=== PATIENT | female | born 1970 | race Caucasian/White ===

== ENCOUNTER 2023-04-29 06:06 | Day surgery (SDC) | payer OTHER, SELFPAY ==
[2023-04-29] VITALS (13 sets, daily range): BP systolic 134–162; BP diastolic 70–100; PULSE 69–80; RESP 16–24; TEMP 36.3–36.6; O2SAT 93–98; BMI 33.0
[2023-04-29 06:32] LABS: Basophils Absolute Auto 0.1 10^3/uL (0.0-0.1); Basophils Percent Auto 0.9 % (0.2-2.0); Eosinophils Absolute Auto 0.3 10^3/uL (0.0-0.7); Eosinophils Percent Auto 3.5 % (0.9-7.0); Hematocrit 39.5 % (36.0-48.0); Hemoglobin 13.3 g/dL (12.0-16.0); Immature Granulocytes Abs Auto 0.03 10^3/uL (0.00-0.03); Immature Granulocytes Pct Auto 0.4 % (0.0-0.5); Lymphocytes Absolute Auto 2.6 10^3/uL (1.2-3.8); Lymphocytes Percent Auto 32.3 % (20.5-60.0); Mean Corpuscular HGB Conc 33.7 g/dL (29.9-35.2); Mean Corpuscular Hemoglobin 30.3 pg (26.7-34.0); Mean Platelet Volume 8.8 fL (9.5-13.5); Monocytes Absolute Auto 0.6 10^3/uL (0.3-0.8); Monocytes Percent Auto 7.8 % (1.7-12.0); Neutrophils Absolute Auto 4.5 10^3/uL (1.4-6.5); Neutrophils Percent Auto 55.1 % (43.0-75.0); Nucleated Red Blood Cells 0; Platelet Count 346 10^3/uL (150-450); Red Blood Count 4.39 10^6/uL (4.20-5.40); Red Cell Distribution Width 13.2 % (11.0-15.0); White Blood Count 8.1 10^3/uL (4.0-11.0)
[2023-04-29] MEDS: LACTATED RINGER'S SOLUTION 1,000 ML 50 ML IV (07:20)
[2023-04-29] MEDS: CLINDAMYCIN PHOSPHATE/D5W 900 MG/50 ML PIGGYBACK 50 MG IV (07:48)
--- NOTE | 2023-04-29 08:04 | ED.LOWEXI1 ---
HPI - Extremity Injury (Lower) Related Data Home Medications Medication Instructions Recorded Confirmed aripiprazole 5 mg tablet (Abilify) 5 mg PO QDAY 04/28/23 04/28/23 aspirin 81 mg chewable tablet 81 mg PO QDAY 04/28/23 04/28/23 gabapentin 300 mg capsule 300 mg PO QDAY 04/28/23 04/28/23 hydrochlorothiazide 12.5 mg tablet 12.5 mg PO QDAY 04/28/23 04/28/23 lisinopril 10 mg tablet 10 mg PO QDAY 04/28/23 04/28/23 rosuvastatin 20 mg tablet (Crestor) 20 mg PO QDAY 04/28/23 04/28/23 venlafaxine 150 mg 150 mg PO QPM 04/28/23 04/28/23 capsule,extended release 24 hr (Effexor XR) Allergies Allergy/AdvReac Type Severity Reaction Status Date / Time acetaminophen [From Percocet] Allergy Mild Nausea Verified 04/28/23 15:21 amoxicillin Allergy Mild Rash Verified 04/28/23 15:20 oxycodone [From Percocet] Allergy Mild Nausea Verified 04/28/23 15:21 [facility] Medical History (Updated 04/28/23 @ 15:47 by Radha Cherry, KIM) Surgical History (Updated 04/28/23 @ 15:46 by Radha Cherry, RN) Family History (Updated 04/28/23 @ 15:17 by Radha Cherry, RN) Father Coronary artery disease Hypertension Prostate cancer Mother Coronary artery disease Hypertension Family history of stroke Social History (Updated 04/28/23 @ 15:51 by Radha Cherry, RN) Within the past year, how often did you have a drink containing alcohol: 2-4 times a month Within the past year, how often did you have six or more drinks on one occasion: never Smoking status: Never smoker Non-prescribed substance use: denies use Previous occupational history: [employer] Highest level of school completed/degree received: high school graduate Exam Constitutional: Vital Signs, click to edit/add: Vital Signs - 24 hr 04/29/23 06:45 Temperature 97.3 F L Pulse Rate 79 Respiratory Rate 18 Blood Pressure [Le ft Arm] 155/98 H Pulse Oximetry 96 Oxygen Delivery Me thod Room Air Course Vital Signs Vital signs: Vital Signs Temperature 97.3 F L 04/29/23 06:45 Pulse Rate 79 04/29/23 06:45 Respiratory Rate 18 04/29/23 06:45 Blood Pressure 155/98 H 04/29/23 06:45 Pulse Oximetry 96 04/29/23 06:45 Oxygen Delivery Method Room Air 04/29/23 06:45 Temperature 97.3 F L 04/29/23 06:45 Pulse Rate 79 04/29/23 06:45 Respiratory Rate 18 04/29/23 06:45 Blood Pressure 155/98 H 04/29/23 06:45 Pulse Oximetry 96 04/29/23 06:45 Oxygen Delivery Method Room Air 04/29/23 06:45 MDM - Extremity Injury (Lower) Lab Data Labs: Lab Results 04/29/23 Range/Units 06:17 WBC 8.1 (4.0-11.0) 10^3/uL RBC 4.39 (4.20-5.40) 10^6/uL Hgb 13.3 (12.0-16.0) g/dL Hct 39.5 (36.0-48.0) % MCV 90.0 (81.0-99.0) fL MCH 30.3 (26.7-34.0) pg MCHC 33.7 (29.9-35.2) g/dL RDW 13.2 (11.0-15.0) % Plt Count 346 (150-450) 10^3/uL MPV 8.8 L (9.5-13.5) fL Neut % (Auto) 55.1 (43.0-75.0) % Lymph % (Auto) 32.3 (20.5-60.0) % [place] % (Auto) 7.8 (1.7-12.0) % Eos % (Auto) 3.5 (0.9-7.0) % Baso % (Auto) 0.9 (0.2-2.0) % Neut # (Auto) 4.5 (1.4-6.5) 10^3/uL Lymph # (Auto) 2.6 (1.2-3.8) 10^3/uL [place] # (Auto) 0.6 (0.3-0.8) 10^3/uL Eos # (Auto) 0.3 (0.0-0.7) 10^3/uL Baso # (Auto) 0.1 (0.0-0.1) 10^3/uL Nucleated RBCs 0 Discharge Plan Discharge Disposition: Home, Self-Care Condition: Good Discharge Medications: No Action aripiprazole [Abilify] 5 mg tablet 5 mg PO QDAY aspirin 81 mg tablet,chewable 81 mg PO QDAY rosuvastatin [Crestor] 20 mg tablet 20 mg PO QDAY venlafaxine [Effexor XR] 150 mg capsule,extended release 24hr 150 mg PO QPM gabapentin 300 mg capsule 300 mg PO QDAY lisinopril 10 mg tablet 10 mg PO QDAY hydrochlorothiazide 12.5 mg tablet 12.5 mg PO QDAY Referrals: JULIO C JARRETT [Primary Care Provider] -
--- NOTE | 2023-04-29 08:20 | PC.NURSE ---
PATIENT PLACED ON RIGHT SIDE, OXYGEN APPLIED PER PROTOCOL, PRESSURE MONITOR APPLIED PROCEDURE PERFORMED. PATIENT TOLERATED BLOCK WELL
--- NOTE | 2023-04-29 09:01 | P.ORON_ITS ---
jhlkhj Brief Operative Note Date of procedure: 04/29/23 Pre-op diagnosis: rupture of left Achilles tendon status post primary repair on 12/17/22 Post-op diagnosis: same Procedure: Left secondary/revision Achilles tendon repair with flexor hallucis longus tendon transfer and application of short leg splint Procedure in detail: Patient was identified in the preoperative holding area and correct side and site were marked. I reviewed the consent with the patient as well as risks and benefits of the procedure. I reviewed postsurgical course and answered all questions. Preoperative antibiotics were started and the patient was brought to the operating theater and was intubated. Thigh tourniquet was applied. He was then flipped onto the operative table in a well-padded prone position. The operative extremity was prepped and draped in usual sterile fashion. Formal timeout was performed. The rupture site was identified and a lazy S incision was placed over the Achilles tendon extending from 4 cm proximal to the rupture site and to the Achilles insertion. Sharp and blunt dissection was performed and the peritenon was identified and meticulously reflected for later repair. a large bulbous area of the Achilles tendon in the non-insertional area was identified. The tendon was incised and further inspected. All nonviable tendon was excised which included much of the insertion and non-insertional areas of the Achilles tendon. Due to the amount of Achilles tendon excised decision was made to augment the repair with a FHL tendon transfer. The deep crural fascia was incised and all bleeders were coagulated. The FHL muscle belly was identified and was tracked distally identifying the associated tendon. The ankle and hallux were plantarflexed in tension was placed on the FHL tendon which was then cut as distal as possible. Then a whipstitch was used along the FHL tendon which was then sized. A guidepin was then placed into the calcaneus from superior to inferior with a slight anterior and a stab incision was placed on the plantar heel allowing the guidepin passed through the plantar skin. Then a cannulated drill was used over this guidepin accordingly. The sutures from the whipstitch on the FHL tendon were then passed through an eyelet in the guidepin which was then removed through the plantar skin allowing the passage of the sutures. The ankle was plantar flexed fifteen degrees and the tendon passed through the drill hole in the superior aspect of the calcaneus. Then a 6 mm tenodesis screw was used to hold the tendon in place. The sutures exiting the plantar skin were then cut and the surgical site was irrigated copiously. Utilizing suture tape a Krak?w stitch was performed on the proximal Achilles tendon. Then two stab incisions were placed on the medial and lateral insertion sites. Blunt dissection down to bone was performed. Two drill holes for suture anchors were placed in each of the stab incisions. The suture tape was then passed with a Abbey clamp into each of the stab incisions. Then my microbiology lab assistant held the foot in fifteen degrees of plantar flexion as well as held tension on the lateral suture tape while I placed the medial suture tape through a 3.3 mm anchor. According to the horse trader's standard directions that anchor was placed into the drill hole holding tension appropriately. Then in a similar fashion another anchor was placed through the lateral stab incision. It was noted on the table that there was good apposition between the ruptured sites. Good fixation was obtained with testing plantarflexion/dorsiflexion of the ankle. Surgical site was irrigated with saline and peritenon repaired. T ourniquet was then dropped and the incision was closed in layers while the stab incisions were closed in one layer with nonabsorbable suture. A dry sterile dressing was applied. Multiple layers of cast padding were then applied to ensure all bony prominences were well-padded. A plaster posterior splint was then applied which was held in place by Isai wraps. Capillary refill time to all digits was evaluated and had appropriate response. Postoperative plan: Discharge home under family's care Post op instructions provided verbally and written prescription(s) were placed in chart NWB operative foot/ankle x3 wks Follow-up in 1 week Implants: Medline 6mm tenodesis and 3.3 mm knotless anchors (x2) Anesthesia: regional (& general) Surgeon: Deng Remy Senior It Business Analyst: David Barnett Estimated blood loss (mL): 10 Tourniquet time (min): 47 Pathology: other (Achilles tendon) Condition: stable Disposition: PACU General Podiatry History of Present Illness patient is a 53-year-old female who sustained a work-related injury involving a laceration and associated rupture of the Achilles tendon which required surgical repair (DOS: 12/17/22). Her postoperative course was complicated by a fall which resulted in pain, palpable dell in the Achilles tendon and plantarflexory weakness. an MRI was obtained in January which revealed a rupture of the repaired Achilles tendon. She initially was treated nonoperatively with immobilization and a cam boot with wedges as well as physical therapy. Unfortunately her strength did not improve and we discussed the potential risks and benefits of surgical revision. Particularly she is at risk for wound healing problems, infection, and permanent weakness. other potential complications include bleeding, numbness/tingling, gait dysfunction, blood clot and need for additional surgery. Patient wished to proceed with surgical revision. Current symptoms: Reports swelling, Reports pain with movement, Reports painful wearing shoes and Reports pain walking barefoot Last treatment for complaint: unsuccessful in relief Aggravating factors: Reports walking
--- NOTE | 2023-04-29 09:04 | XR_ITS ---
The [address] [address] Patient Name: LUIS FIGUEROA MRN: [id number] date: 1970 Sex: F Assigned Patient Location: [facility] Current Patient Location: Accession/Order Number: [id number] Exam Date: 04/29/2023 09:55 Report Date: 04/29/2023 10:38 At the request of: IVANIA MUNOZ Procedure: XR ankle LT min 3V EXAM: XR ankle LT min 3V HISTORY: Left achilles repair COMPARISON: MRI from 02/15/2023, radiographs from 12/09/2022 FINDINGS: 3 views of the left ankle. There are changes from interval Achilles tendon repair, with expected soft tissue fluid and gas projecting over Kager's fat pad. Further soft tissue evaluation is limited by the overlying casting material. The joint spaces of the ankle and hindfoot are well-maintained. Achilles and plantar fascial enthesopathy is noted. IMPRESSION: Expected postoperative changes status post Achilles tendon repair. Electronically authenticated by: AVELINA MARTINEZ Date: 04/29/2023 10:38
[2023-04-29] MEDS: HYDROMORPHONE HCL 1 MG/ML CARTRIDGE (10:00)
[2023-04-29] MEDS: HYDROMORPHONE HCL 0.5 MG/0.5 ML SYRINGE (10:10)
[2023-04-29] MEDS: HYDROCODONE/ACETAMINOPHEN 5-325 MG TABLET 1 TAB PO (11:24)
[2023-04-29 14:52] LABS: Glucometer 128 mg/dL (74-106)
== END 2023-04-29 11:35 | disposition home or self-care (01) ==
PROVIDERS: PCP Internal Medicine; Visit Provider Podiatrist Foot & Ankle Surgery
PROC: (CPT 27654; principal; 2023-04-29 07:30)
DX: S86.012A Strain of left Achilles tendon, initial encounter (principal); I10 Essential (primary) hypertension; Z79.82 Long term (current) use of aspirin; Z86.16 Personal history of COVID-19; E78.00 Pure hypercholesterolemia, unspecified; K21.9 Gastro-esophageal reflux disease without esophagitis; Z98.51 Tubal ligation status; Z86.73 Personal history of transient ischemic attack (TIA), and cerebral infarction without residual deficits
CPT/HCPCS: 27654; 27691; 36415; 64445; 73610; 76942; 82948; 85025; 88304; C1713; J1170; J2704

== ENCOUNTER 2023-07-21 10:09 | Outpatient (OUT) | payer OTHER, SELFPAY ==
--- NOTE | 2023-07-21 | XR_ITS ---
The [place] [id number] Patient Name: LUIS FIGUEROA MRN: [id number] date: 1970 Sex: F Assigned Patient Location: [facility] Current Patient Location: [facility] Accession/Order Number: [id number] Exam Date: 07/21/2023 09:29 Report Date: 07/21/2023 09:53 At the request of: ДМИТРИЙ RÍOS Procedure: XR ankle LT min 3V XR ankle LT min 3V, 07/21/2023 9:29 AM EDT, OH001 INDICATION: LEFT ANKLE PAIN COMPARISON: 04/29/2023 TECHNIQUE: AP, lateral and oblique views of the ankle are submitted. FINDINGS: The bones appear well mineralized. No acute fracture or subluxation is identified. The joint spaces are maintained. No destructive osseous process is identified. There is marked dorsal soft tissue swelling. XR/XR ankle LT min 3V IMPRESSION: Marked dorsal soft tissue swelling. No acute osseous injury with intact ankle mortise. Electronically authenticated by: GENARO MONTOYA Date: 07/21/2023 09:53
== END 2023-07-21 10:10 | disposition home or self-care (01) ==
LOC: RAD 10:10
PROVIDERS: PCP Internal Medicine; Visit Provider Podiatrist Foot & Ankle Surgery
DX: S86.012D Strain of left Achilles tendon, subsequent encounter (principal)
CPT/HCPCS: 73610

== ENCOUNTER 2023-07-21 11:20 | Inpatient (IN) | payer OTHER, SELFPAY ==
[2023-07-21 11:24] VITALS: BP 104/82; PULSE 90; RESP 16; TEMP 37.5; O2SAT 97; BMI 32.4
[2023-07-21 11:45] VITALS: BP 150/86; PULSE 88; RESP 16; TEMP 37.2; O2SAT 95; BMI 32.6
--- NOTE | 2023-07-21 12:12 | ED_ITS ---
HPI - Extremity Problem General Chief complaint: Extremity Problem, Nontraumatic Stated complaint: LOWER EXTREMITY PAIN LEFT FOOT Time Seen by Provider: 07/21/23 11:34 Source: patient Mode of arrival: Wheelchair Limitations: no limitations History of Present Illness HPI Narrative: Patient presents to emergency department complaining of left lower leg abscess. Patient had Achilles tendon repair by Dr. Remy In November. Patient followed up with Dr. Remy today because since Wednesday she's had increased pain, swelling, and edema to the area. He is found to have an abscess and he sent her here for admission. Patient was a history of hypertension. She denies any fever. She denies any paresthesias, weakness. Currently on any antibiotics.She does not have any other complaints Related Data Home Medications Medication Instructions Recorded Confirmed aripiprazole 5 mg tablet (Abilify) 10 mg PO QDAY 04/28/23 07/21/23 aspirin 81 mg chewable tablet 81 mg PO QDAY 04/28/23 07/21/23 gabapentin 300 mg capsule 300 mg PO QDAY PRN pain 04/28/23 07/21/23 hydrochlorothiazide 12.5 mg tablet 12.5 mg PO QDAY 04/28/23 07/21/23 lisinopril 10 mg tablet 10 mg PO QDAY 04/28/23 07/21/23 venlafaxine 150 mg 150 mg PO QPM 04/28/23 07/21/23 capsule,extended release 24 hr (Effexor XR) pravastatin 40 mg tablet 40 mg PO DAILY 07/21/23 07/21/23 Allergies Allergy/AdvReac Type Severity Reaction Status Date / Time amoxicillin Allergy Mild Rash Verified 04/28/23 15:20 Review of Systems ROS Status of ROS 10 or more systems reviewed and unremarkable except as noted in history and below [facility] Medical History (Updated 07/21/23 @ 13:40 by Khushboo Celis MD) Surgical History (Updated 04/28/23 @ 15:46 by Radha Cherry RN) Family History (Updated 04/28/23 @ 15:17 by Radha Cherry, KIM) Father Coronary artery disease Hypertension Prostate cancer Mother Coronary artery disease Hypertension Family history of stroke Social History (Updated 04/28/23 @ 15:51 by Radha Cherry, RN) Within the past year, how often did you have a drink containing alcohol: 2-4 times a month Within the past year, how often did you have six or more drinks on one occasion: never Smoking status: Never smoker Non-prescribed substance use: denies use Previous occupational history: [employer] Highest level of school completed/degree received: high school graduate Exam Narrative Exam Narrative: Nurses notes and vital signs reviewed and patient is not hypoxic. General: Nontoxic, Well-appearing and in no apparent distress. Skin: Warm, dry, no pallor noted. No Rash Head: Normocephalic, atraumatic. Neck: Supple, non-tender. Eye: Pupils are equal, round and EOMI. No scleral icterus. Ears, Nose, Mouth, and Throat: TM clear, no posterior oropharynx erythema or nasal mucosal hypertrophy, uvula is mid-line Oral mucosa is moist Cardiovascular: Regular Rate and Rhythm without murmur, gallop or rub. Respiratory: No accessory muscle use or respiratory distress. Lungs are clear to auscultation, no wheezing, rales or rhonchi Chest Wall: no tenderness Back: No midline thoracic or lumbar vertebral tenderness. No CVA tenderness Musculoskeletal: Left posterior lower leg with a palm-sized area of erythema, induration, and warmth. There is no dehiscensce. DP +2, to be +2, capillary refill is brisk. Motion limited by pain. no calf or popliteal tenderness, no lower extremity edema/swelling GI: Abdomen is soft, non-distended. Normal bowel sounds. No masses appreciated. No tenderness to palpation. No rebound, guarding, or rigidity noted. Neurological: A&O x4. No cranial nerve dysfunction observed. No truncal ataxia. Moves all extremities. Sensation intact. Psychiatric: Cooperative and interactive. Normal mood and affect. Constitutional Vital Signs, click to edit/add: Last Vital Signs Temp 99.5 F 07/21/23 11:24 Pulse 90 07/21/23 11:24 Resp 16 07/21/23 11:24 BP 104/82 07/21/23 11:24 Pulse Ox 97 07/21/23 11:24 O2 Del Method Room Air 07/21/23 11:24 Course Vital Signs Vital signs: Vital Signs Temperature 99.5 F 07/21/23 11:24 Pulse Rate 90 07/21/23 11:24 Respiratory Rate 16 07/21/23 11:24 Blood Pressure 104/82 07/21/23 11:24 Pulse Oximetry 97 07/21/23 11:24 Oxygen Delivery Method Room Air 07/21/23 11:24 Temperature 99.5 F 07/21/23 11:24 Pulse Rate 90 07/21/23 11:24 Respiratory Rate 16 07/21/23 11:24 Blood Pressure 104/82 07/21/23 11:24 Pulse Oximetry 97 07/21/23 11:24 Oxygen Delivery Method Room Air 07/21/23 11:24 MDM - Extremity (Nontraumatic) MDM Narrative Medical decision making narrative: Patient had IV established, she was pancultured and started on vancomycin. She was given IV fluids. All results were discussed with Dr. Gan for admission. Dr. Gan advised he has already discussed the patient with Dr. Remy.. Lab Data Labs: Lab Results 07/21/23 Range/Units 11:00 WBC 10.7 (4.0-11.0) 10^3/uL RBC 4.35 (4.20-5.40) 10^6/uL Hgb 12.9 (12.0-16.0) g/dL Hct 39.1 (36.0-48.0) % MCV 89.9 (81.0-99.0) fL MCH 29.7 (26.7-34.0) pg MCHC 33.0 (29.9-35.2) g/dL RDW 13.1 (11.0-15.0) % Plt Count 432 (150-450) 10^3/uL MPV 9.3 L (9.5-13.5) fL Neut % (Auto) 78.3 H (43.0-75.0) % Lymph % (Auto) 17.2 L (20.5-60.0) % [place] % (Auto) 3.2 (1.7-12.0) % Eos % (Auto) 0.3 L (0.9-7.0) % Baso % (Auto) 0.6 (0.2-2.0) % Neut # (Auto) 8.4 H (1.4-6.5) 10^3/uL Lymph # (Auto) 1.8 (1.2-3.8) 10^3/uL [place] # (Auto) 0.3 (0.3-0.8) 10^3/uL Eos # (Auto) 0.0 (0.0-0.7) 10^3/uL Baso # (Auto) 0.1 (0.0-0.1) 10^3/uL Abs Immat Gran (auto) 0.04 H (0.00-0.03) 10^3/uL Imm/Tot Granulo (auto) 0.4 (0.0-0.5) % ESR 110 H (<=30) mm/hr Sodium 135 L (136-145) mmol/L Potassium 3.1 L (3.5-5.1) mmol/L Chloride 97 L (98-107) mmol/L Carbon Dioxide 26.2 (21.0-32.0) mmol/L Anion Gap 14.9 BUN 8.0 (7.0-18.0) mg/dL Creatinine 1.01 (0.55-1.02) mg/dL Est GFR ( Amer) >60 (>=60) Est GFR (Non-Af Amer) 57 L (>=60) BUN/Creatinine Ratio 7.9 Glucose 152 H (74-106) mg/dL Lactate 3.0 H* (0.4-2.0) mmol/L Calcium 9.4 (8.5-10.1) mg/dL Total Bilirubin 0.6 (0.2-1.0) mg/dL AST 17 (15-37) U/L ALT 26 (14-59) U/L Alkaline Phosphatase 85 (46-116) U/L C-Reactive Protein 8.9 H (<=1.0) mg/dL Total Protein 8.3 H (6.4-8.2) g/dL Albumin 3.9 (3.4-5.0) g/dL Globulin 4.4 g/dL Albumin/Globulin Ratio 0.9 Discharge Plan Discharge Chief Complaint: Extremity Problem, Nontraumatic Clinical Impression: Abscess of left lower leg, Sepsis Patient Disposition: Admitted As Inpatient Time of Disposition Decision: 13:39 Condition: Good
[2023-07-21] MEDS: 0.9 % SODIUM CHLORIDE 1,000 ML 999 ML IV (12:19)
[2023-07-21] MEDS: VANCOMYCIN HCL 1,500 MG in 0.9 % SODIUM CHLORIDE 500 ML 250 MG IV (12:34)
[2023-07-21 12:36] LABS: Basophils Absolute Auto 0.1 10^3/uL (0.0-0.1); Basophils Percent Auto 0.6 % (0.2-2.0); Eosinophils Percent Auto 0.3 % (0.9-7.0); Hematocrit 39.1 % (36.0-48.0); Hemoglobin 12.9 g/dL (12.0-16.0); Immature Granulocytes Abs Auto 0.04 10^3/uL (0.00-0.03); Immature Granulocytes Pct Auto 0.4 % (0.0-0.5); Lymphocytes Absolute Auto 1.8 10^3/uL (1.2-3.8); Lymphocytes Percent Auto 17.2 % (20.5-60.0); Mean Corpuscular Hemoglobin 29.7 pg (26.7-34.0); Mean Corpuscular Volume 89.9 fL (81.0-99.0); Mean Platelet Volume 9.3 fL (9.5-13.5); Monocytes Absolute Auto 0.3 10^3/uL (0.3-0.8); Monocytes Percent Auto 3.2 % (1.7-12.0); Neutrophils Absolute Auto 8.4 10^3/uL (1.4-6.5); Neutrophils Percent Auto 78.3 % (43.0-75.0); Platelet Count 432 10^3/uL (150-450); Red Blood Count 4.35 10^6/uL (4.20-5.40); Red Cell Distribution Width 13.1 % (11.0-15.0); White Blood Count 10.7 10^3/uL (4.0-11.0)
[2023-07-21 12:41] LABS: Erythrocyte Sedimentation Rate 110 mm/hr (<=30)
[2023-07-21 12:59] LABS: Alanine Aminotransferase 26 U/L (14-59); Albumin Globulin Ratio 0.9; Albumin Level 3.9 g/dL (3.4-5.0); Alkaline Phosphatase 85 U/L (46-116); Anion Gap 14.9; Aspartate Amino Transferase 17 U/L (15-37); BUN Creatinine Ratio 7.9; Bilirubin Total 0.6 mg/dL (0.2-1.0); C Reactive Protein 8.9 mg/dL (<=1.0); Calcium 9.4 mg/dL (8.5-10.1); Carbon Dioxide 26.2 mmol/L (21.0-32.0); Chloride 97 mmol/L (98-107); Estimated GFR (African America >60 (>=60); Estimated GFR (Non-African Ame 57 (>=60); Globulin 4.4 g/dL; Glucose 152 mg/dL (74-106); Potassium 3.1 mmol/L (3.5-5.1); Sodium 135 mmol/L (136-145); Total Protein 8.3 g/dL (6.4-8.2)
[2023-07-21 14:00] VITALS: BP 150/86; PULSE 88; RESP 18; TEMP 37.2; O2SAT 95
[2023-07-21 14:10] VITALS: BP 116/84; PULSE 87; RESP 16; TEMP 37.5; O2SAT 98
[2023-07-21 14:31] LABS: Lactate/Lactic Acid 1.3 mmol/L (0.4-2.0)
[2023-07-21] MEDS: LACTATED RINGER'S SOLUTION 1,000 ML 100 ML IV (16:46)
[2023-07-21] MEDS: ASPIRIN 81 MG TAB.CHEW PO (16:47)
[2023-07-21] MEDS: PIPERACILLIN SODIUM/TAZOBACTAM 3.375 GM in 0.9 % SODIUM CHLORIDE 50 ML IV (18:34)
[2023-07-21 21:03] VITALS: BP 119/86; PULSE 87; RESP 18; TEMP 36.6; O2SAT 96
[2023-07-21] MEDS: ATORVASTATIN CALCIUM 10 MG TABLET PO (21:13)
[2023-07-21] MEDS: VENLAFAXINE HCL ER 150 MG CAPSULE PO (21:15)
[2023-07-21] MEDS: VANCOMYCIN HCL 1,000 MG in 0.9 % SODIUM CHLORIDE 250 ML 250 MG IV (22:03)
[2023-07-21] MEDS: FAMOTIDINE 20 MG TABLET PO (22:03)
[2023-07-22] VITALS (18 sets, daily range): BP systolic 100–138; BP diastolic 64–94; PULSE 66–99; RESP 7–22; TEMP 36.5–37; O2SAT 84–96
[2023-07-22] MEDS: PIPERACILLIN SODIUM/TAZOBACTAM 3.375 GM in 0.9 % SODIUM CHLORIDE 50 ML IV ×3 (02:02→17:51)
[2023-07-22] MEDS: LACTATED RINGER'S SOLUTION 1,000 ML 100 ML IV ×3 (03:25→19:59)
[2023-07-22 05:13] LABS: Basophils Absolute Auto 0.1 10^3/uL (0.0-0.1); Basophils Percent Auto 0.7 % (0.2-2.0); Eosinophils Absolute Auto 0.1 10^3/uL (0.0-0.7); Eosinophils Percent Auto 1.6 % (0.9-7.0); Hematocrit 32.7 % (36.0-48.0); Hemoglobin 10.8 g/dL (12.0-16.0); Immature Granulocytes Abs Auto 0.03 10^3/uL (0.00-0.03); Immature Granulocytes Pct Auto 0.3 % (0.0-0.5); Lymphocytes Absolute Auto 1.7 10^3/uL (1.2-3.8); Mean Corpuscular Hemoglobin 29.8 pg (26.7-34.0); Mean Corpuscular Volume 90.1 fL (81.0-99.0); Mean Platelet Volume 8.8 fL (9.5-13.5); Monocytes Absolute Auto 0.5 10^3/uL (0.3-0.8); Monocytes Percent Auto 6.1 % (1.7-12.0); Neutrophils Absolute Auto 6.1 10^3/uL (1.4-6.5); Neutrophils Percent Auto 71.3 % (43.0-75.0); Platelet Count 332 10^3/uL (150-450); Red Blood Count 3.63 10^6/uL (4.20-5.40); Red Cell Distribution Width 12.9 % (11.0-15.0); White Blood Count 8.6 10^3/uL (4.0-11.0)
[2023-07-22 05:26] LABS: BUN Creatinine Ratio 7.3; Calcium 8.6 mg/dL (8.5-10.1); Carbon Dioxide 27.2 mmol/L (21.0-32.0); Chloride 102 mmol/L (98-107); Estimated GFR (African America >60 (>=60); Estimated GFR (Non-African Ame >60 (>=60); Glucose 102 mg/dL (74-106); Potassium 3.2 mmol/L (3.5-5.1); Sodium 137 mmol/L (136-145)
[2023-07-22] MEDS: LOSARTAN POTASSIUM 25 MG TABLET PO (09:33)
--- NOTE | 2023-07-22 09:39 | CM.NOTE ---
Rounds made with Dr. Gan, OR scheduled for 12:10 I&D. Possible discharge after OR.
--- NOTE | 2023-07-22 09:40 | PM.HP ---
H&P: HPI History of Present Illness Chief complaint: Left achilles abscess Narrative: 53 y/o female sent from podiatry office with left achilles tendon abscess. Patient had achilles tendon repair in November 2022 then again on April 29. Seemed to be healing well then developed pain and swelling few days ago. Noticed severe swelling in back of ankle and skin red and warm to touch. Afebrile and no nausea or emesis. Seen by podiatry and sent to ER for admission. WBC normal and low grade temp 99.5. CRP elevated. Admitted for treatment. Started vancomycin and zosyn. Podiatry consulted and plan on taking for I&D later this am. Feels well this am. Denies pain and reports started to drain overnight. Review of Systems ROS Constitutional Denies: fever, chills or fatigue Respiratory Denies: shortness of breath, cough or wheezing Gastrointestinal Denies: abdominal pain, nausea, vomiting or diarrhea Genitourinary Denies: painful urination Integumentary/Breast Reports: redness PFSH PFSH Medical History (Updated 07/21/23 @ 13:40 by Khushboo Celis MD) Surgical History (Updated 04/28/23 @ 15:46 by Radha Cherry RN) Family History (Updated 07/21/23 @ 14:26 by Jaqeulin Ortiz) Father Coronary artery disease Hypertension Prostate cancer Family history of cancer Mother Coronary artery disease Hypertension Family history of stroke Social History (Updated 07/21/23 @ 14:28 by Jaquelin Ortiz) Within the past year, how often did you have a drink containing alcohol: 2-4 times a month Within the past year, how many standard drinks containing alcohol did you have on a typical day: 1 or 2 Within the past year, how often did you have six or more drinks on one occasion: never Total score: 0 Score interpretation: A score less than 3 is consistent with normal alcohol consumption. Smoking status: Never smoker Non-prescribed substance use: denies use Previous occupational history: [employer] Highest level of school completed/degree received: high school graduate Are you now , , , , never or living with a partner: In a typical week, how many times do you talk on the telephone with family, friends, or neighbors: 3 or more times per week How often do you get together with friends or relatives: twice per week How often do you attend tenriism or zoroastrianism services: never Do you belong to any clubs or organizations such as tenriism groups unions, fraternal or athletic groups, or school groups: no Total score: 1 Score interpretation: A score of less than or equal to 1 indicates the most socially isolated. Little interest or pleasure in doing things: not at all Feeling down, depressed, or hopeless: not at all Feel stressed/tense/nervous/anxious/difficulty sleeping: not at all Meds Home Medications and Allergies Home Medications Medication Instructions Recorded Confirmed Type aspirin 81 mg chewable tablet 81 mg PO QDAY 04/28/23 07/21/23 History venlafaxine 150 mg 150 mg PO QPM 04/28/23 07/21/23 History capsule,extended release 24 hr (Effexor XR) aripiprazole 10 mg tablet (Abilify) 10 mg PO DAILY 07/21/23 07/21/23 History hydrochlorothiazide 25 mg tablet 25 mg PO DAILY 07/21/23 07/21/23 History losartan 25 mg tablet 25 mg PO DAILY 07/21/23 07/21/23 History pravastatin 40 mg tablet 40 mg PO DAILY 07/21/23 07/21/23 History Allergies Allergy/AdvReac Type Severity Reaction Status Date / Time amoxicillin Allergy Mild Rash Verified 04/28/23 15:20 Exam Constitutional Vital Signs, click to edit/add: Last Vital Signs Temp 98.0 F 07/22/23 05:28 Pulse 82 07/22/23 05:28 Resp 16 07/22/23 05:28 BP 110/66 07/22/23 05:28 Pulse Ox 96 07/22/23 05:28 O2 Del Method Room Air 07/22/23 05:28 Documenting provider has reviewed patient's vital signs: yes Common normals: no apparent distress, oriented x3 and alert HENMT Common normals: normocephalic Eye Common normals: PERRL and EOMs intact bilaterally Respiratory Common normals: normal respiratory effort and clear to auscultation bilaterally Cardio Common normals: regular rate, regular rhythm, no gallops, no murmurs and no rub GI Common normals: Normal to inspection, nondistended, normoactive bowel sounds present and non-tender Extremity Common normals: no pedal edema Left lower extremity: lower leg (Mild swelling and erythema over achilles tendon) Results Labs Labs: Short CBC 07/21/23 07/22/23 Range/Units 11:00 04:35 WBC 10.7 8.6 (4.0-11.0) 10^3/uL Hgb 12.9 10.8 L (12.0-16.0) g/dL Hct 39.1 32.7 L (36.0-48.0) % Plt Count 432 332 (150-450) 10^3/uL BMP 07/21/23 07/22/23 11:00 04:35 Sodium 135 L 137 Potassium 3.1 L 3.2 L Chloride 97 L 102 Carbon Dioxide 26.2 27.2 BUN 8.0 6.0 L Creatinine 1.01 0.82 Glucose 152 H 102 Calcium 9.4 8.6 Liver Function 07/21/23 Range/Units 11:00 Total Bilirubin 0.6 (0.2-1.0) mg/dL AST 17 (15-37) U/L ALT 26 (14-59) U/L Alkaline Phosphatase 85 (46-116) U/L Albumin 3.9 (3.4-5.0) g/dL Assessment and Plan Assessment and Plan (1) Abscess of left lower leg: (2) Hypertension: (3) Depression: Plan Admitted with abscess and podiatry consulted for I&D. Continue antibiotics and await cultures. The patient is not septic. Resumed home medication. Start PT. Further plan and disposition per podiatry after surgery.
--- NOTE | 2023-07-22 12:54 | PM.ORONB ---
Brief Operative Note Date of procedure: 07/22/23 Pre-op diagnosis: left open Achilles tendon rupture with laceration, abscess/cellulitis Post-op diagnosis: same as pre-op Procedure: PROCEDURES PERFORMED: left incision and drainage of deep abscess of Achilles tendon sheath, Achilles tendon debridement with tenolysis, application of wound VAC and short leg splint INTRAOPERATIVE FINDINGS: Preoperative wound measurements 0.4 x 0.5 cm. PROCEDURE IN DETAIL: Patient was identified in pre op and consent was reviewed. Correct side and site were identified and marked. Pre-op antibiotics were started. Patient was brought to OR suite and place on table in a supine position. General anesthesia was administered. Tourniquet applied. Operative extremity was prepped and draped in usual sterile fashion. Formal time-out was performed and the foot/ankle were elevated for several minutes and the tourniquet was inflated. Utilizing a scalpel, the wound over the Achilles tendon was excised then extended proximally and distally allowing exposure of the entire Achilles tendon. There was cherelle pus noted on the proximal half of the Achilles tendon superficial to the peritenon. Soft tissue swabs were taken of the pus. After the pus was evacuated nonviable tissue was excised with rongeurs and a scalpel. anchors from the prior Achilles tendon repair were found while debridement was being performed. Additionally nonabsorbable suture was identified and was also removed. there also was a dell in the mid substance of the Achilles tendon consistent with rerupture. The tendon was aggressively debrided. Blunt dissection with a hemostat was performed to ensure no additional purulence or necrotic tissue was present. After full excision the surgical site was irrigated with 3 L of copious sterile saline. Gloves were changed and all dirty instruments were passed off the sterile field. after irrigation the tourniquet was deflated noting a prompt hyperemic response. Inspection was performed to ensure all remaining tissue perfused normally. A clean specimen was obtained from the Achilles tendon and was sent to microbiology for culture. Hemostasis was controlled with pressure an elevation. Adaptic was then placed over the Achilles tendon and wound bed followed by black foam. Tegaderm drape was used to obtain a seal for a wound VAC. A hole was cut into the drape and a track pad was placed accordingly. The wound VAC was placed at 125mmHg continuous and adequate suction was obtained. A bulky dry sterile dressing consisting of 4 x 4 gauze, ABDs, and Kerlix were applied. Multiple layers of cast padding were then applied to ensure all bony prominences were well-padded. A plaster posterior splint was then applied which was held in place by Isai wraps. Capillary refill time to all digits was evaluated and had appropriate response. Patient tolerated the procedure and anesthesia well transferred to the recovery room with vital signs stable and brisk capillary refill to the toes. POSTOPERATIVE PLAN: Transfer to med/surg under hospitalist's care NWB operative foot/ankle Ice and elevation continue broad-spectrum antibiotics and follow cultures. Consults: physical therapy & social work manager plan is for patient to remain in the hospital over the weekend and for repeat I and D and hopeful closure on Wednesday Will follow Implants: none Anesthesia: General-ET Surgeon: Deng Remy Community Development Manager: Luca Poole Estimated blood loss (mL): 25 Pathology: other (soft tissue) Condition: stable Disposition: PACU Preoperative Details Reason for procedure: patient is a 53-year-old female who suffered an open Achilles tendon rupture which required surgical intervention secondary to an injury sustained at work. Her postoperative recovery has been complicated by inability to regain strength on plantarflexion, surgical dehiscence. Patient presented to my office yesterday with redness, swelling and drainage coming from the incision dehiscence over the area of the original laceration. I recommended admission and she was sent to the emergency department and ultimately admitted under the hospitalist's care. She had no leukocytosis however ESR was 110 on admission. She was started on vancomycin & zosyn. She presents to the operating room today for I and D and she was educated all potential risks and benefits.
[2023-07-22] MEDS: HYDROMORPHONE HCL 0.5 MG/0.5 ML SYRINGE IV (15:25)
--- NOTE | 2023-07-22 15:31 | PC.NURSE ---
pain meds given at this time
[2023-07-22] MEDS: VENLAFAXINE HCL ER 150 MG CAPSULE PO (19:46)
[2023-07-22] MEDS: ATORVASTATIN CALCIUM 10 MG TABLET PO (19:46)
[2023-07-23] MEDS: PIPERACILLIN SODIUM/TAZOBACTAM 3.375 GM in 0.9 % SODIUM CHLORIDE 50 ML IV ×3 (01:28→17:58)
[2023-07-23 04:44] LABS: Basophils Absolute Auto 0.1 10^3/uL (0.0-0.1); Basophils Percent Auto 0.8 % (0.2-2.0); Eosinophils Absolute Auto 0.4 10^3/uL (0.0-0.7); Eosinophils Percent Auto 6.1 % (0.9-7.0); Hematocrit 32.3 % (36.0-48.0); Hemoglobin 10.4 g/dL (12.0-16.0); Immature Granulocytes Abs Auto 0.02 10^3/uL (0.00-0.03); Immature Granulocytes Pct Auto 0.3 % (0.0-0.5); Lymphocytes Absolute Auto 1.8 10^3/uL (1.2-3.8); Lymphocytes Percent Auto 27.6 % (20.5-60.0); Mean Corpuscular HGB Conc 32.2 g/dL (29.9-35.2); Mean Corpuscular Volume 93.1 fL (81.0-99.0); Mean Platelet Volume 8.8 fL (9.5-13.5); Monocytes Absolute Auto 0.4 10^3/uL (0.3-0.8); Monocytes Percent Auto 6.6 % (1.7-12.0); Neutrophils Absolute Auto 3.8 10^3/uL (1.4-6.5); Neutrophils Percent Auto 58.6 % (43.0-75.0); Platelet Count 300 10^3/uL (150-450); Red Blood Count 3.47 10^6/uL (4.20-5.40); Red Cell Distribution Width 13.1 % (11.0-15.0); White Blood Count 6.6 10^3/uL (4.0-11.0)
[2023-07-23 04:56] LABS: Anion Gap 12.1; BUN Creatinine Ratio 6.3; Calcium 8.7 mg/dL (8.5-10.1); Carbon Dioxide 29.3 mmol/L (21.0-32.0); Chloride 105 mmol/L (98-107); Estimated GFR (African America >60 (>=60); Estimated GFR (Non-African Ame >60 (>=60); Glucose 114 mg/dL (74-106); Potassium 3.4 mmol/L (3.5-5.1); Sodium 143 mmol/L (136-145)
[2023-07-23 05:11] VITALS: BP 111/70; PULSE 68; RESP 20; TEMP 36.6; O2SAT 91
[2023-07-23] MEDS: LACTATED RINGER'S SOLUTION 1,000 ML 100 ML IV ×2 (06:55→17:58)
[2023-07-23] MEDS: ARIPIPRAZOLE 5 MG TABLET 10 MG PO (08:24)
[2023-07-23] MEDS: HYDROCHLOROTHIAZIDE 25 MG TABLET PO (08:25)
[2023-07-23] MEDS: LOSARTAN POTASSIUM 25 MG TABLET PO (08:25)
--- NOTE | 2023-07-23 09:22 | SWNOTE1 ---
SW notified by case management that pt has a hospital wound vac on, SW to speak with pt and check podiatry documentation. Pt is supposed to go to surgery for another I&D Wednesday , 07/26/23. SW to follow.
--- NOTE | 2023-07-23 10:00 | CM.NOTE ---
Rounds made with Dr. Gan, no discharge today. SW and Case Management will follow for any discharge needs.
--- NOTE | 2023-07-23 10:07 | PM.PN ---
Progress Note: Subjective Subjective Interval history: Patient stable this am. Taken to OR for I&D and podiatry found abscess more involved then initially thought. Found achilles tendon rupture and abscess involving tendon. Wound vac applied and cultures obtained. Plan repeat wash out 07/26 with possible closure. Pain tolerable with medication. Afebrile. Normal appetite. No emesis or diarrhea. No chest pain or SOB. Exam Constitutional Vital Signs, click to edit/add: Last Vital Signs Temp 97.9 F 07/23/23 05:11 Pulse 68 07/23/23 05:11 Resp 20 07/23/23 05:11 BP 111/70 07/23/23 05:11 Pulse Ox 91 L 07/23/23 05:11 O2 Del Method Room Air 07/23/23 05:11 Documenting provider has reviewed patient's vital signs: yes Common normals: no apparent distress, oriented x3 and alert HENMT Common normals: normocephalic Eye Common normals: PERRL and EOMs intact bilaterally Respiratory Common normals: normal respiratory effort and clear to auscultation bilaterally Cardio Common normals: regular rate, regular rhythm, no gallops, no murmurs and no rub GI Common normals: Normal to inspection, nondistended, normoactive bowel sounds present and non-tender Extremity Common normals: no pedal edema Progress Note: Objective Labs Labs: Short CBC 07/23/23 Range/Units 04:12 WBC 6.6 (4.0-11.0) 10^3/uL Hgb 10.4 L (12.0-16.0) g/dL Hct 32.3 L (36.0-48.0) % Plt Count 300 (150-450) 10^3/uL BMP 07/23/23 04:12 Sodium 143 Potassium 3.4 L Chloride 105 Carbon Dioxide 29.3 BUN 5.0 L Creatinine 0.79 Glucose 114 H Calcium 8.7 Progress Note: A&P Assessment and Plan (1) Abscess of left lower leg: (2) Rupture of left Achilles tendon: (3) Hypertension: (4) Depression: Plan Doing well after surgery and plan per podiatry. Continue vanc and zosyn while awaiting cultures. Plan repeat surgery 07/26. Continue home medication. BP stable. Monitor labs.
--- NOTE | 2023-07-23 11:57 | SWNOTE1 ---
SW met with pt to discuss dc needs. Pt lives at home with
--- NOTE | 2023-07-23 11:58 | SWNOTE1 ---
continued note: Live at home with family. Pt lives in a 1 story home, just a few steps to get in. Pt does have a knee scooter at home. She is aware she is going back to OR Wednesday, she stated she will get wound vac off then. Pt does not have any concerns about discharge. SW to follow as needed.
[2023-07-23 12:11] VITALS: BMI 32.6
--- NOTE | 2023-07-23 12:17 | DIETREC ---
Nutrition Recommendations: 1. Add Prostat 30 mL starting with once daily. May increase to BID if patient accepts supplement. Reviewed with
[2023-07-23] MEDS: SIMETHICONE 80 MG TAB.CHEW PO (12:57)
--- NOTE | 2023-07-23 13:57 | P.PN_ITS ---
Progress Note: Subjective Subjective Interval history: Patient seen resting comfortably at bedside this afternoon. Postop day #1 status post left leg incision and drainage with debridement of the Achilles tendon, DOS 07/22/2023. Denies any acute events overnight. Pain controlled with p.o. medication. Afebrile. Eating well, no nausea vomiting shortness of breath diarrhea or chest pain. Denies any other acute complaints. Exam Narrative Exam Narrative: Left lower extremity focused exam: Vascular: DP and PT pulses faintly palpable secondary to edema. CFT is brisk to digits. Skin temperature is warm to warm from proximal distal without any focal increase. Erythema is markedly improved since preop yesterday. No ascending lymphangitis. Mild ecchymosis around the heel. Mild nonpitting edema to the l eft foot. Consistent with postoperative state. Neuro: Light touch and gross sensation intact. Derm: There is approximately 7 cm longitudinal incision overlying the left Achilles tendon with exposure of the Achilles tendon and underlying FHL muscle belly. No active drainage or bleeding. Approximately 40 cc in wound VAC canister, mixed serosanguineous drainage. Abscess site appears to be markedly improved since yesterday. Musculoskeletal: Muscle strength and range of motion deferred secondary to postop state. Known Achilles tendon rupture. Moderate palpatory tenderness to the wound bed. Compartment soft compressible, no pain with calf or thigh compression. Positive June test. Constitutional Vital Signs, click to edit/add: Last Vital Signs Temp 97.9 F 07/23/23 05:11 Pulse 68 07/23/23 05:11 Resp 20 07/23/23 05:11 BP 111/70 07/23/23 05:11 Pulse Ox 91 L 07/23/23 05:11 O2 Del Method Room Air 07/23/23 05:11 Progress Note: Objective Labs Labs: Short CBC 07/23/23 Range/Units 04:12 WBC 6.6 (4.0-11.0) 10^3/uL Hgb 10.4 L (12.0-16.0) g/dL Hct 32.3 L (36.0-48.0) % Plt Count 300 (150-450) 10^3/uL BMP 07/23/23 04:12 Sodium 143 Potassium 3.4 L Chloride 105 Carbon Dioxide 29.3 BUN 5.0 L Creatinine 0.79 Glucose 114 H Calcium 8.7 Progress Note: A&P Assessment and Plan (1) Abscess of left lower leg: Assessment and Plan: Patient examined and evaluated. All findings were discussed with the patient and all questions were answered to the patient's satisfaction. Today wound VAC was changed and surgical site and evaluated. She appears markedly improved since preop yesterday. WBC trending down. Intra-Op cultures and path pending. Vera flow VAC was applied today at 125 mmHg intermittent with 12 mL saline flush every 3 hours. Plan to leave clean dry and intact over the weekend. VAC site was well-padded and posterior splint was reapplied. If there is failure of the saline flush portion of the VAC, may cramp the saline nozzle and reset to 125 mmHg continuous. Continue broad-spectrum IV antibiotics. Plan for repeat I&D with washout, excisional debridement and delayed primary closure Thursday 07/26. Call with questions or concerns. (2) Rupture of left Achilles tendon: (3) Hypertension: (4) Depression:
[2023-07-23 14:06] VITALS: BP 125/77; PULSE 74; RESP 18; TEMP 36.9; O2SAT 94
[2023-07-23] MEDS: VANCOMYCIN HCL 1,000 MG in 0.9 % SODIUM CHLORIDE 250 ML 250 MG IV (14:59)
[2023-07-23 19:00] VITALS: BP 138/67; PULSE 76; RESP 16; TEMP 36.9; O2SAT 95
[2023-07-23] MEDS: VENLAFAXINE HCL ER 150 MG CAPSULE PO (21:29)
[2023-07-23] MEDS: ATORVASTATIN CALCIUM 10 MG TABLET PO (21:29)
[2023-07-24] MEDS: VANCOMYCIN HCL 1,000 MG in 0.9 % SODIUM CHLORIDE 250 ML 250 MG IV ×2 (03:14→15:02)
[2023-07-24] MEDS: PIPERACILLIN SODIUM/TAZOBACTAM 3.375 GM in 0.9 % SODIUM CHLORIDE 50 ML IV ×3 (03:15→18:46)
[2023-07-24] MEDS: LACTATED RINGER'S SOLUTION 1,000 ML 100 ML IV (03:15)
[2023-07-24 04:04] VITALS: BP 176/97; PULSE 69; RESP 18; TEMP 36.7; O2SAT 96
[2023-07-24 04:22] VITALS: BP 153/84
[2023-07-24 04:30] LABS: Basophils Absolute Auto 0.1 10^3/uL (0.0-0.1); Basophils Percent Auto 1.1 % (0.2-2.0); Eosinophils Absolute Auto 0.5 10^3/uL (0.0-0.7); Eosinophils Percent Auto 7.7 % (0.9-7.0); Hematocrit 32.1 % (36.0-48.0); Hemoglobin 10.6 g/dL (12.0-16.0); Immature Granulocytes Abs Auto 0.03 10^3/uL (0.00-0.03); Immature Granulocytes Pct Auto 0.5 % (0.0-0.5); Lymphocytes Absolute Auto 2.7 10^3/uL (1.2-3.8); Lymphocytes Percent Auto 43.1 % (20.5-60.0); Mean Corpuscular Volume 90.9 fL (81.0-99.0); Mean Platelet Volume 8.8 fL (9.5-13.5); Monocytes Absolute Auto 0.5 10^3/uL (0.3-0.8); Neutrophils Absolute Auto 2.5 10^3/uL (1.4-6.5); Neutrophils Percent Auto 39.6 % (43.0-75.0); Platelet Count 348 10^3/uL (150-450); Red Blood Count 3.53 10^6/uL (4.20-5.40); Red Cell Distribution Width 12.9 % (11.0-15.0); White Blood Count 6.3 10^3/uL (4.0-11.0)
[2023-07-24] MEDS: SIMETHICONE 80 MG TAB.CHEW PO (04:32)
[2023-07-24 04:39] LABS: Anion Gap 10.2; BUN Creatinine Ratio 5.7; Calcium 8.6 mg/dL (8.5-10.1); Carbon Dioxide 31.2 mmol/L (21.0-32.0); Chloride 104 mmol/L (98-107); Estimated GFR (African America >60 (>=60); Estimated GFR (Non-African Ame >60 (>=60); Glucose 87 mg/dL (74-106); Potassium 3.4 mmol/L (3.5-5.1); Sodium 142 mmol/L (136-145)
--- NOTE | 2023-07-24 08:13 | PM.PN ---
Progress Note: Subjective Subjective Interval history: Patient resting comfortably at bedside. Postop day #2 status post left leg incision and drainage with debridement of the Achilles tendon, DOS 07/22/2023. Denies any acute events overnight. Pain controlled with p.o. medication. Afebrile. Eating well, no nausea vomiting shortness of breath diarrhea or chest pain. Denies any other acute complaints. Exam Narrative Exam Narrative: General: Patient is alert, and oriented to person, place and time with normal affect, proper hygiene Skin: no visible rashes, or ulcers. left foot dressings c/d/i, wound vac in place Head: atraumatic, acephalic Eyes: PERRLA, no nystagmus present, conjunctiva clear, no scleral icterus Ears: normal gross auditory acuity Heart: Normal rate and rhythm, no murmurs/rubs/gallops Lungs: no audible wheezes, crackles and normal breath sounds all lung benz Abdomen: Normal audible bowel sounds, no distension, No palpable masses, no organomegaly, no rebound/guarding/ or rigidity Musculoskeletal: muscle atrophy noted, ROM is limited due to being in hospital bed, no swelling bilateral lower extremities Vascular: Normal carotid, radial, femoral, posterior tibial, and dorsalis pedis pulses Lymph: no supraclavicular, axillary, or anterior/posterior cervical adenopathy Neuro: CN II-X grossly intact, normal sensation upper and lower extremities Constitutional Vital Signs, click to edit/add: Last Vital Signs Temp 98.0 F 07/24/23 04:04 Pulse 69 07/24/23 04:04 Resp 18 07/24/23 04:04 BP 153/84 H 07/24/23 04:22 Pulse Ox 96 07/24/23 04:04 O2 Del Method Room Air 07/24/23 04:04 Progress Note: Objective Labs Labs: Short CBC 07/24/23 Range/Units 04:06 WBC 6.3 (4.0-11.0) 10^3/uL Hgb 10.6 L (12.0-16.0) g/dL Hct 32.1 L (36.0-48.0) % Plt Count 348 (150-450) 10^3/uL BMP 07/24/23 04:06 Sodium 142 Potassium 3.4 L Chloride 104 Carbon Dioxide 31.2 BUN 5.0 L Creatinine 0.87 Glucose 87 Calcium 8.6 Progress Note: A&P Assessment and Plan (1) Abscess of left lower leg: Assessment and Plan: cultures from OR still pending, continue broad-spectrum coverage with the vancomycin and Zosyn. Normal white blood cell count and patient is afebrile. wound VAC in place. Pain is controlled. Plan for OR on Wednesday. (2) Rupture of left Achilles tendon: Assessment and Plan: see#1 (3) Hypertension: Assessment and Plan: continue hydrochlorothiazide, losartan (4) Depression: Assessment and Plan: continue Abilify, Effexor Plan patient is a full code Patient is an inpatient status Continue Lovenox for deep vein thrombosis prophylaxis Return to OR on 07/26/2023
[2023-07-24] MEDS: ARIPIPRAZOLE 5 MG TABLET 10 MG PO (08:27)
[2023-07-24] MEDS: LOSARTAN POTASSIUM 25 MG TABLET PO (08:27)
[2023-07-24] MEDS: HYDROCHLOROTHIAZIDE 25 MG TABLET PO (08:27)
[2023-07-24] MEDS: ASPIRIN 81 MG TAB.CHEW PO (08:27)
[2023-07-24] MEDS: ENOXAPARIN SODIUM 40 MG/0.4 ML SYRINGE SUBQ (11:27)
[2023-07-24] MEDS: POLYETHYLENE GLYCOL 3350 17 GM POWDER PACKET PO (11:27)
[2023-07-24 13:28] VITALS: BP 135/79; PULSE 70; RESP 16; TEMP 36.9; O2SAT 94
[2023-07-24 19:16] VITALS: BP 149/85; PULSE 75; RESP 16; RESP 20; TEMP 37.1; O2SAT 94
[2023-07-24] MEDS: VENLAFAXINE HCL ER 150 MG CAPSULE PO (19:27)
[2023-07-24] MEDS: ATORVASTATIN CALCIUM 10 MG TABLET PO (19:27)
[2023-07-25] MEDS: VANCOMYCIN HCL 1,000 MG in 0.9 % SODIUM CHLORIDE 250 ML 200 MG IV (01:00)
[2023-07-25] MEDS: PIPERACILLIN SODIUM/TAZOBACTAM 3.375 GM in 0.9 % SODIUM CHLORIDE 50 ML IV ×3 (02:34→18:14)
[2023-07-25 04:18] VITALS: BP 162/89; PULSE 74; RESP 16; TEMP 36.9; O2SAT 94
[2023-07-25 05:11] LABS: Basophils Absolute Auto 0.1 10^3/uL (0.0-0.1); Eosinophils Absolute Auto 0.4 10^3/uL (0.0-0.7); Eosinophils Percent Auto 5.9 % (0.9-7.0); Hematocrit 34.6 % (36.0-48.0); Hemoglobin 11.4 g/dL (12.0-16.0); Immature Granulocytes Abs Auto 0.05 10^3/uL (0.00-0.03); Immature Granulocytes Pct Auto 0.7 % (0.0-0.5); Lymphocytes Absolute Auto 1.8 10^3/uL (1.2-3.8); Lymphocytes Percent Auto 25.2 % (20.5-60.0); Mean Corpuscular HGB Conc 32.9 g/dL (29.9-35.2); Mean Corpuscular Hemoglobin 29.5 pg (26.7-34.0); Mean Corpuscular Volume 89.6 fL (81.0-99.0); Mean Platelet Volume 8.9 fL (9.5-13.5); Monocytes Absolute Auto 0.5 10^3/uL (0.3-0.8); Monocytes Percent Auto 6.8 % (1.7-12.0); Neutrophils Absolute Auto 4.3 10^3/uL (1.4-6.5); Neutrophils Percent Auto 60.4 % (43.0-75.0); Platelet Count 399 10^3/uL (150-450); Red Blood Count 3.86 10^6/uL (4.20-5.40); Red Cell Distribution Width 12.9 % (11.0-15.0); White Blood Count 7.1 10^3/uL (4.0-11.0)
[2023-07-25 05:20] LABS: Anion Gap 9.8; BUN Creatinine Ratio 4.3; Carbon Dioxide 29.5 mmol/L (21.0-32.0); Chloride 102 mmol/L (98-107); Estimated GFR (African America >60 (>=60); Estimated GFR (Non-African Ame >60 (>=60); Glucose 100 mg/dL (74-106); Potassium 3.3 mmol/L (3.5-5.1); Sodium 138 mmol/L (136-145)
--- NOTE | 2023-07-25 08:04 | P.PN_ITS ---
Progress Note: Subjective Subjective Interval history: Patient resting comfortably at bedside. Postop day #3 status post left leg incision and drainage with debridement of the Achilles tendon, DOS 07/22/2023. Denies any acute events overnight. Pain controlled with p.o. medication. Afebrile. Eating well, no nausea vomiting shortness of breath diarrhea or chest pain. Denies any other acute complaints. Exam Narrative Exam Narrative: General: Patient is alert, and oriented to person, place and time with normal affect, proper hygiene Skin: no visible rashes, or ulcers. left foot dressings c/d/i, wound vac in place Head: atraumatic, acephalic Eyes: PERRLA, no nystagmus present, conjunctiva clear, no scleral icterus Ears: normal gross auditory acuity Heart: Normal rate and rhythm, no murmurs/rubs/gallops Lungs: no audible wheezes, crackles and normal breath sounds all lung benz Abdomen: Normal audible bowel sounds, no distension, No palpable masses, no organomegaly, no rebound/guarding/ or rigidity Musculoskeletal: muscle atrophy noted, ROM is limited due to being in hospital bed, no swelling bilateral lower extremities Vascular: Normal carotid, radial, femoral, posterior tibial, and dorsalis pedis pulses Lymph: no supraclavicular, axillary, or anterior/posterior cervical adenopathy Neuro: CN II-X grossly intact, normal sensation upper and lower extremities Constitutional Vital Signs, click to edit/add: Last Vital Signs Temp 98.5 F 07/25/23 04:18 Pulse 74 07/25/23 04:18 Resp 16 07/25/23 04:18 BP 162/89 H 07/25/23 04:18 Pulse Ox 94 L 07/25/23 04:18 O2 Del Method Room Air 07/25/23 04:18 Progress Note: Objective Labs Labs: Short CBC 07/25/23 Range/Units 04:19 WBC 7.1 (4.0-11.0) 10^3/uL Hgb 11.4 L (12.0-16.0) g/dL Hct 34.6 L (36.0-48.0) % Plt Count 399 (150-450) 10^3/uL BMP 07/25/23 04:19 Sodium 138 Potassium 3.3 L Chloride 102 Carbon Dioxide 29.5 BUN 4.0 L Creatinine 0.92 Glucose 100 Calcium 9.0 Progress Note: A&P Assessment and Plan (1) Abscess of left lower leg: Assessment and Plan: cultures from OR still pending one did show positive for group B strep Agalactiae. sensitive to vanc, will transition to orals after OR tomorrow. co ntinue broad-spectrum coverage with the vancomycin and Zosyn. Normal white blood cell count and patient is afebrile. wound VAC in place. Pain is controlled. Plan for OR on Wednesday. (2) Rupture of left Achilles tendon: Assessment and Plan: see #1 (3) Hypertension: Assessment and Plan: continue hydrochlorothiazide, losartan (4) Depression: Assessment and Plan: continue Abilify, Effexor Plan patient is a full code Patient is an inpatient status Continue Lovenox for deep vein thrombosis prophylaxis Return to OR on 07/26/2023
[2023-07-25] MEDS: HYDROCHLOROTHIAZIDE 25 MG TABLET PO (08:24)
[2023-07-25] MEDS: POLYETHYLENE GLYCOL 3350 17 GM POWDER PACKET PO (08:24)
[2023-07-25] MEDS: LOSARTAN POTASSIUM 25 MG TABLET PO (08:24)
[2023-07-25] MEDS: ENOXAPARIN SODIUM 40 MG/0.4 ML SYRINGE SUBQ (08:24)
[2023-07-25] MEDS: ARIPIPRAZOLE 5 MG TABLET 10 MG PO (08:24)
--- NOTE | 2023-07-25 11:15 | PM.PN ---
Progress Note: Subjective Subjective Interval history: Patient seen this a.m. resting comfortably at bedside. POD #3 s/p left leg incision and drainage with debridement of the Achilles tendon, wound VAC application DOS 07/22/2023. Denies any acute events overnight. Pain controlled with p.o. medication. Afebrile. Eating well, no nausea vomiting shortness of breath diarrhea or chest pain. Denies any other acute complaints. Exam Narrative Exam Narrative: Left lower extremity focused exam. Posterior splint and wound VAC dressing left clean dry and intact. Vascular: CFT intact to digits. No edema or erythema proximal to dressing. No ascending lymphangitis. Neuro: Light touch and gross sensation intact to digits. No hypersensitivity. Derm: Splint and dressing left clean dry and intact. No open lesions proximal or distal to dressing. MSK: Active passive range of motion of digits present. No pain with calf or thigh compression. Constitutional Vital Signs, click to edit/add: Last Vital Signs Temp 98.5 F 07/25/23 04:18 Pulse 74 07/25/23 04:18 Resp 16 07/25/23 04:18 BP 162/89 H 07/25/23 04:18 Pulse Ox 94 L 07/25/23 04:18 O2 Del Method Room Air 07/25/23 04:18 Progress Note: Objective Labs Labs: Short CBC 07/25/23 Range/Units 04:19 WBC 7.1 (4.0-11.0) 10^3/uL Hgb 11.4 L (12.0-16.0) g/dL Hct 34.6 L (36.0-48.0) % Plt Count 399 (150-450) 10^3/uL BMP 07/25/23 04:19 Sodium 138 Potassium 3.3 L Chloride 102 Carbon Dioxide 29.5 BUN 4.0 L Creatinine 0.92 Glucose 100 Calcium 9.0 Progress Note: A&P Assessment and Plan (1) Abscess of left lower leg: Assessment and Plan: Patient examined and evaluated. All findings were discussed with the patient and all questions were answered to the patient's satisfaction. Today splint and wound VAC left CDI. Good seal on VAC. No leukocytosis. Intra-Op cultures with group B strep, and path pending. Vera flow VAC settings 125 mmHg intermittent with 12 mL saline flush every 3 hours. Leave CDI. If there is failure of the saline flush portion of the VAC, may cramp the saline nozzle and reset to 125 mmHg continuous. Continue broad-spectrum IV antibiotics. Plan for repeat I&D with washout, excisional debridement and delayed primary closure Thursday 07/26. N.p.o. after midnight tonight. Patient in agreement with plan. Call with questions or concerns. (2) Rupture of left Achilles tendon: (3) Hypertension: (4) Depression:
[2023-07-25 14:00] VITALS: BP 129/87; PULSE 94; RESP 18; TEMP 36.7; O2SAT 93
[2023-07-25] MEDS: VANCOMYCIN HCL 1,000 MG in 0.9 % SODIUM CHLORIDE 250 ML 250 MG IV (14:10)
[2023-07-25] MEDS: VENLAFAXINE HCL ER 150 MG CAPSULE PO (20:36)
[2023-07-25] MEDS: ATORVASTATIN CALCIUM 10 MG TABLET PO (20:36)
[2023-07-25 21:26] VITALS: BP 115/78; PULSE 77; RESP 18; TEMP 37.1; O2SAT 96
[2023-07-26] VITALS (22 sets, daily range): BP systolic 113–183; BP diastolic 75–104; PULSE 75–108; RESP 17–26; TEMP 36.4–36.8; O2SAT 92–99
[2023-07-26] MEDS: VANCOMYCIN HCL 1,000 MG in 0.9 % SODIUM CHLORIDE 250 ML 250 MG IV (01:54)
[2023-07-26] MEDS: PIPERACILLIN SODIUM/TAZOBACTAM 3.375 GM in 0.9 % SODIUM CHLORIDE 50 ML IV ×2 (03:16→17:24)
[2023-07-26 05:08] LABS: Basophils Absolute Auto 0.1 10^3/uL (0.0-0.1); Basophils Percent Auto 1.1 % (0.2-2.0); Eosinophils Absolute Auto 0.4 10^3/uL (0.0-0.7); Eosinophils Percent Auto 5.6 % (0.9-7.0); Hemoglobin 11.6 g/dL (12.0-16.0); Immature Granulocytes Abs Auto 0.04 10^3/uL (0.00-0.03); Immature Granulocytes Pct Auto 0.6 % (0.0-0.5); Lymphocytes Absolute Auto 2.1 10^3/uL (1.2-3.8); Lymphocytes Percent Auto 33.3 % (20.5-60.0); Mean Corpuscular HGB Conc 32.2 g/dL (29.9-35.2); Mean Corpuscular Hemoglobin 29.3 pg (26.7-34.0); Mean Corpuscular Volume 90.9 fL (81.0-99.0); Mean Platelet Volume 8.9 fL (9.5-13.5); Monocytes Absolute Auto 0.6 10^3/uL (0.3-0.8); Monocytes Percent Auto 8.9 % (1.7-12.0); Neutrophils Absolute Auto 3.3 10^3/uL (1.4-6.5); Neutrophils Percent Auto 50.5 % (43.0-75.0); Platelet Count 398 10^3/uL (150-450); Red Blood Count 3.96 10^6/uL (4.20-5.40); Red Cell Distribution Width 12.9 % (11.0-15.0); White Blood Count 6.4 10^3/uL (4.0-11.0)
[2023-07-26 05:32] LABS: Anion Gap 8.9; BUN Creatinine Ratio 8.9; Calcium 9.1 mg/dL (8.5-10.1); Carbon Dioxide 31.8 mmol/L (21.0-32.0); Chloride 102 mmol/L (98-107); Estimated GFR (African America >60 (>=60); Estimated GFR (Non-African Ame 57 (>=60); Glucose 92 mg/dL (74-106); Potassium 3.7 mmol/L (3.5-5.1); Sodium 139 mmol/L (136-145)
--- NOTE | 2023-07-26 08:36 | PM.PN ---
Progress Note: Subjective Subjective Interval history: Patient seen this a.m. resting comfortably at bedside. POD #4 s/p left leg incision and drainage with debridement of the Achilles tendon, wound VAC application DOS 07/22/2023. NO acute events overnight. NPO after midnight, OR today. Exam Narrative Exam Narrative: General: Patient is alert, and oriented to person, place and time with normal affect, proper hygiene Skin: no visible rashes, or ulcers. left foot dressings c/d/i Head: atraumatic, acephalic Heart: Normal rate and rhythm, no murmurs/rubs/gallops Lungs: no audible wheezes, crackles and normal breath sounds all lung benz Abdomen: Normal audible bowel sounds, no distension, No palpable masses, no organomegaly, no rebound/guarding/ or rigidity Musculoskeletal: ROM is limited due to being in hospital bed, no swelling bilateral lower extremities Vascular: Normal carotid, radial, femoral, posterior tibial, and dorsalis pedis pulses Lymph: no supraclavicular, axillary, or anterior/posterior cervical adenopathy Neuro: CN II-X grossly intact, normal sensation upper and lower extremities Constitutional Vital Signs, click to edit/add: Last Vital Signs Temp 98.1 F 07/26/23 07:48 Pulse 79 07/26/23 07:48 Resp 17 07/26/23 07:48 BP 145/92 H 07/26/23 07:48 Pulse Ox 97 07/26/23 07:48 O2 Del Method Room Air 07/26/23 07:48 Progress Note: Objective Labs Labs: Short CBC 07/26/23 Range/Units 04:12 WBC 6.4 (4.0-11.0) 10^3/uL Hgb 11.6 L (12.0-16.0) g/dL Hct 36.0 (36.0-48.0) % Plt Count 398 (150-450) 10^3/uL BMP 07/26/23 04:12 Sodium 139 Potassium 3.7 Chloride 102 Carbon Dioxide 31.8 BUN 9.0 Creatinine 1.01 Glucose 92 Calcium 9.1 Progress Note: A&P Assessment and Plan (1) Abscess of left lower leg: Assessment and Plan: cultures from OR still pending one did show positive for group B strep Agalactiae. sensitive to vanc, will transition to orals after OR. continue broad-spectrum coverage with the vancomycin and Zosyn. Normal white blood cell count and patient is afebrile. wound VAC in place. Pain is controlled. Plan for OR today (2) Rupture of left Achilles tendon: Assessment and Plan: see #1 (3) Hypertension: Assessment and Plan: continue hydrochlorothiazide, losartan (4) Depression: Assessment and Plan: continue Abilify, Effexor Plan patient is a full code Patient is an inpatient status Continue Lovenox for deep vein thrombosis prophylaxis Return to OR on 07/26/2023
[2023-07-26] MEDS: LACTATED RINGER'S SOLUTION 1,000 ML 50 ML IV (08:39)
[2023-07-26] MEDS: LOSARTAN POTASSIUM 25 MG TABLET PO (09:16)
[2023-07-26 09:39] LABS: Glucometer 90 mg/dL (74-106)
--- NOTE | 2023-07-26 10:15 | PC.NURSE ---
0900 LR at 50ml/hr per gravity.
--- NOTE | 2023-07-26 10:16 | PC.NURSE ---
1000 Patient was transported for a surgery.
--- NOTE | 2023-07-26 11:06 | P.ORON_ITS ---
Brief Operative Note Date of procedure: 07/26/23 Pre-op diagnosis: left open Achilles tendon rupture, incision dehiscence and a bscess Post-op diagnosis: same as pre-op Procedure: PROCEDURES PERFORMED: left Achilles tendon debridement, delayed primary closure of incision dehiscence, application of short leg splint INTRAOPERATIVE FINDINGS: Preoperative wound measurements 7.5 x 2.6 cm (1.8 cm deep). wound bed prior to debridement was ninety percent granular. No purulence or evidence of active acute infection. 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 PROCEDURE IN DETAIL: Patient was identified in pre op and consent was reviewed. Correct side and site were identified and marked. Pre-op antibiotics were started. Patient was brought to OR suite and place on table in a supine position. General anesthesia was administered. Tourniquet applied. Operative extremity was prepped and draped in usual sterile fashion. Formal time-out was performed and the foot/ankle were elevated for several minutes and the tourniquet was inflated. Utilizing a scalpel, the wound on the Achilles tendon was excised to healthy granular tissue. the Achilles tendon was then exposed and closely inspected noting chronic Achilles tear in the mid substance. The tendon was debrided ex cisionally of all nonviable and questionable tissue. No signs of active acute infection were noted. The tourniquet was then deflated to ensure the wound bed and tendon blood appropriately. The surgical site was irrigated with 3 L of copious sterile saline. then a specimen of Achilles tendon was obtained and was sent to pathology. 1 g of vancomycin powder were placed on the wound bed prior to closure. the wound edges were meticulously undermined with a hemostat which allowed the skin edges to be reapproximated. several large nonabsorbable sutures were placed to reapproximate the wound edges. Then 3-0 & 4-0 nylon sutures were used to close the wound utilizing a vertical mattress technique. The retention sutures were removed allowing capillary refill to the wound edges to return to normal. Due to the complexity of closure and undermining performed incision was supplemented with an incisional VAC. Adaptic was placed over the incision followed by black granular foam which is held in place by Tegaderm drape. A hole was cut into the drain and track pad was placed obtaining adequate suction. The wound VAC was set to 75 mmHg continuous. Multiple layers of cast padding were then applied to ensure all bony prominences were well-padded. A plaster posterior splint was then applied which was held in place by Isai wraps. Capillary refill time to all digits was evaluated and had appropriate response. Patient tolerated the procedure and anesthesia well transferred to the recovery room with vital signs stable and brisk capillary refill to the toes. POSTOPERATIVE PLAN: transfer to medical surgical unit under the hospitalist Estimated additional length of stay one night then likely discharge home Patient is to be discharged on oral antibiotics: Augmentin and Bactrim Strict nonweightbearing on operative extremity Follow-up within one week from discharge Implants: none Surgeon: Deng Remy Research Nurse Practitioner: Luca Poole Estimated blood loss (mL): 10 Pathology: other (Achilles tendon) Condition: stable Disposition: floor Preoperative Details Reason for procedure: patient is a 53-year-old female returns back to the operating room for repeat surgery for abscess and infection associated with Achilles tendon. Her cultures never turned group the strept. She has remained stable over the weekend. Prior the procedure I spoke the patient regarding the plan going forward which would likely involve discharge as early as tomorrow on oral antibiotics. Then in the upcoming weeks once infection is cleared may discu ss repair of Achilles tendon.
--- NOTE | 2023-07-26 11:33 | CM.NOTE ---
Pt in OR at this time, Dr. Roberson will see pt this afternoon.
[2023-07-26] MEDS: VANCOMYCIN HCL 500 MG VIAL TOPICAL (12:08)
--- NOTE | 2023-07-26 12:14 | PC.NURSE ---
0745 Wound VAC connected to left lower leg at 125mm/HG
[2023-07-26] MEDS: HYDROMORPHONE HCL 1 MG/ML CARTRIDGE INJ (12:42)
--- NOTE | 2023-07-26 13:11 | PC.NURSE ---
PATIENT STATES PAIN SHOOTS TO A HIGHER NUMBER AND COMES BACK DOWN. PATIENT STATES PAIN HAS IMPROVED
[2023-07-26 13:17] LABS: Glucometer 99 mg/dL (74-106)
[2023-07-26] MEDS: VANCOMYCIN HCL 1,500 MG in 0.9 % SODIUM CHLORIDE 500 ML 250 MG IV (14:32)
[2023-07-26] MEDS: CYCLOBENZAPRINE HCL 10 MG TABLET PO (15:27)
[2023-07-26] MEDS: VENLAFAXINE HCL ER 150 MG CAPSULE PO (19:33)
[2023-07-26] MEDS: ATORVASTATIN CALCIUM 10 MG TABLET PO (19:33)
[2023-07-27] MEDS: VANCOMYCIN HCL 1,500 MG in 0.9 % SODIUM CHLORIDE 500 ML 250 MG IV (01:01)
[2023-07-27] MEDS: CYCLOBENZAPRINE HCL 10 MG TABLET PO (01:13)
[2023-07-27] MEDS: PIPERACILLIN SODIUM/TAZOBACTAM 3.375 GM in 0.9 % SODIUM CHLORIDE 50 ML IV ×2 (03:22→09:40)
[2023-07-27 05:15] VITALS: BP 124/81; PULSE 67; RESP 18; TEMP 36.7; O2SAT 93
[2023-07-27 05:22] LABS: Basophils Percent Auto 0.4 % (0.2-2.0); Eosinophils Absolute Auto 0.1 10^3/uL (0.0-0.7); Eosinophils Percent Auto 0.5 % (0.9-7.0); Hematocrit 33.3 % (36.0-48.0); Hemoglobin 10.9 g/dL (12.0-16.0); Immature Granulocytes Abs Auto 0.08 10^3/uL (0.00-0.03); Immature Granulocytes Pct Auto 0.8 % (0.0-0.5); Lymphocytes Absolute Auto 1.9 10^3/uL (1.2-3.8); Lymphocytes Percent Auto 18.7 % (20.5-60.0); Mean Corpuscular HGB Conc 32.7 g/dL (29.9-35.2); Mean Corpuscular Hemoglobin 29.7 pg (26.7-34.0); Mean Corpuscular Volume 90.7 fL (81.0-99.0); Mean Platelet Volume 8.8 fL (9.5-13.5); Monocytes Absolute Auto 0.8 10^3/uL (0.3-0.8); Monocytes Percent Auto 7.6 % (1.7-12.0); Neutrophils Absolute Auto 7.2 10^3/uL (1.4-6.5); Platelet Count 409 10^3/uL (150-450); Red Blood Count 3.67 10^6/uL (4.20-5.40); Red Cell Distribution Width 12.9 % (11.0-15.0); White Blood Count 9.9 10^3/uL (4.0-11.0)
[2023-07-27 05:30] LABS: Anion Gap 7.1; BUN Creatinine Ratio 9.9; Calcium 8.4 mg/dL (8.5-10.1); Carbon Dioxide 28.4 mmol/L (21.0-32.0); Chloride 105 mmol/L (98-107); Estimated GFR (African America >60 (>=60); Estimated GFR (Non-African Ame >60 (>=60); Glucose 118 mg/dL (74-106); Potassium 3.5 mmol/L (3.5-5.1); Sodium 137 mmol/L (136-145)
[2023-07-27] MEDS: ARIPIPRAZOLE 5 MG TABLET 10 MG PO (09:02)
[2023-07-27] MEDS: HYDROCHLOROTHIAZIDE 25 MG TABLET PO (09:02)
[2023-07-27] MEDS: ENOXAPARIN SODIUM 40 MG/0.4 ML SYRINGE SUBQ (09:02)
[2023-07-27] MEDS: LOSARTAN POTASSIUM 25 MG TABLET PO (09:03)
--- NOTE | 2023-07-27 10:29 | P.PN_ITS ---
Progress Note: Subjective Subjective Interval history: Patient seen this a.m. resting comfortably at bedside. POD #1 s/p left leg incision and drainage with debridement of the Achilles tendon, delayed primary closure, and wound VAC application DOS 07/26/2023. NO acute events overnight. Pain improving, well controlled w/ PO meds. Plan for DC today. Exam Narrative Exam Narrative: Left lower extremity focused exam. Posterior splint and wound VAC dressing left clean dry and intact. Vascular: CFT intact to digits. No edema or erythema proximal to dressing. No ascending lymphangitis. Neuro: Light touch and gross sensation intact to digits. No hypersensitivity. Derm: Splint and dressing left clean dry and intact. No open lesions proximal or distal to dressing. MSK: Active passive range of motion of digits present. No pain with calf or thigh compression. Constitutional Vital Signs, click to edit/add: Last Vital Signs Temp 98.1 F 07/27/23 05:15 Pulse 67 07/27/23 05:15 Resp 18 07/27/23 05:15 BP 124/81 07/27/23 05:15 Pulse Ox 93 L 07/27/23 05:15 O2 Del Method Room Air 07/27/23 05:15 Progress Note: Objective Labs Labs: Short CBC 07/27/23 Range/Units 04:37 WBC 9.9 (4.0-11.0) 10^3/uL Hgb 10.9 L (12.0-16.0) g/dL Hct 33.3 L (36.0-48.0) % Plt Count 409 (150-450) 10^3/uL BMP 07/27/23 04:37 Sodium 137 Potassium 3.5 Chloride 105 Carbon Dioxide 28.4 BUN 8.0 Creatinine 0.81 Glucose 118 H Calcium 8.4 L Progress Note: A&P Assessment and Plan (1) Abscess of left lower leg: Assessment and Plan: Patient examined and evaluated. All findings were discussed with the patient and all questions were answered to the patient's satisfaction. Today splint and wound VAC left CDI. Good seal on VAC. No leukocytosis. Intra-Op cultures with group B strep, and path pending. Incisional wound VAC 125 mmHg Continuous. Leave CDI Until follow-up. Nonweightbearing left lower extremity. Use of crutches or knee scooter for mobilization. Continue broad-spectrum IV antibiotics in house per primary. Cleared for DC today from podiatry standpoint on p.o. clinda and Bactrim. Rx for these as well as [place] and Xarelto sent for [facility] approval. Follow-up in 1 week status post discharge. Patient in agreement with plan. Call with questions or concerns. (2) Rupture of left Achilles tendon: (3) Hypertension: (4) Depression:
[2023-07-27 10:50] VITALS: O2SAT 96
--- NOTE | 2023-07-27 11:19 | CM.NOTE ---
Rounds made with Dr. Roberson, pt ok for discharge to home today. Pt has knee scooter at home. No discharge needs identified.
--- NOTE | 2023-07-27 11:55 | PM.HP ---
H&P: HPI History of Present Illness Chief complaint: Left achilles abscess Narrative: Patient seen this a.m. resting comfortably at bedside. POD #1 s/p left leg incision and drainage with debridement of the Achilles tendon, delayed primary closure, and wound VAC application DOS 07/26/2023. NO acute events overnight. Pain improving, well controlled w/ PO meds. Plan for DC today. [facility] Medical History (Updated 07/27/23 @ 11:15 by Luca Poole DPM) Surgical History (Updated 04/28/23 @ 15:46 by Radha Cherry RN) Family History (Updated 07/21/23 @ 14:26 by Jaquelin Ortiz) Father Coronary artery disease Hypertension Prostate cancer Family history of cancer Mother Coronary artery disease Hypertension Family history of stroke Social History (Updated 07/21/23 @ 14:28 by Jaquelin Ortiz) Within the past year, how often did you have a drink containing alcohol: 2-4 times a month Within the past year, how many standard drinks containing alcohol did you have on a typical day: 1 or 2 Within the past year, how often did you have six or more drinks on one occasion: never Total score: 0 Score interpretation: A score less than 3 is consistent with normal alcohol consumption. Smoking status: Never smoker Non-prescribed substance use: denies use Previous occupational history: [employer] Highest level of school completed/degree received: high school graduate Are you now , , , , never or living with a partner: In a typical week, how many times do you talk on the telephone with family, friends, or neighbors: 3 or more times per week How often do you get together with friends or relatives: twice per week How often do you attend sikhism or scientologist services: never Do you belong to any clubs or organizations such as sikhism groups unions, fraternal or athletic groups, or school groups: no Total score: 1 Score interpretation: A score of less than or equal to 1 indicates the most socially isolated. Little interest or pleasure in doing things: not at all Feeling down, depressed, or hopeless: not at all Feel stressed/tense/nervous/anxious/difficulty sleeping: not at all Meds Home Medications and Allergies Home Medications Medication Instructions Recorded Confirmed Type aspirin 81 mg chewable tablet 81 mg PO QDAY 04/28/23 07/21/23 History venlafaxine 150 mg 150 mg PO QPM 04/28/23 07/21/23 History capsule,extended release 24 hr (Effexor XR) aripiprazole 10 mg tablet (Abilify) 10 mg PO DAILY 07/21/23 07/21/23 History hydrochlorothiazide 25 mg tablet 25 mg PO DAILY 07/21/23 07/21/23 History losartan 25 mg tablet 25 mg PO DAILY 07/21/23 07/21/23 History pravastatin 40 mg tablet 40 mg PO DAILY 07/21/23 07/21/23 History clindamycin HCl 300 mg capsule 300 mg PO Q6H 14 days #56 caps 07/26/23 Rx sulfamethoxazole 800 1 tab PO BID 14 days #28 tabs 07/26/23 Rx mg-trimethoprim 160 mg tablet cyclobenzaprine 10 mg tablet 10 mg PO TID PRN leg pain 10 days 07/27/23 Rx #30 tabs hydrocodone 5 mg-acetaminophen 325 1 tab PO Q6H PRN pain 7 days #28 07/27/23 Rx mg tablet tabs rivaroxaban 15 mg tablet (Xarelto) 15 mg PO BID clot prevention 07/27/23 Rx days #42 tabs Allergies Allergy/AdvReac Type Severity Reaction Status Date / Time amoxicillin Allergy Mild Rash Verified 04/28/23 15:20 Exam Constitutional Vital Signs, click to edit/add: Last Vital Signs Temp 98.1 F 07/27/23 05:15 Pulse 67 07/27/23 05:15 Resp 18 07/27/23 05:15 BP 124/81 07/27/23 05:15 Pulse Ox 96 07/27/23 10:50 O2 Del Method Room Air 07/27/23 10:50 Results Labs Labs: Short CBC 07/27/23 Range/Units 04:37 WBC 9.9 (4.0-11.0) 10^3/uL Hgb 10.9 L (12.0-16.0) g/dL Hct 33.3 L (36.0-48.0) % Plt Count 409 (150-450) 10^3/uL BMP 07/27/23 04:37 Sodium 137 Potassium 3.5 Chloride 105 Carbon Dioxide 28.4 BUN 8.0 Creatinine 0.81 Glucose 118 H Calcium 8.4 L Assessment and Plan Assessment and Plan (1) Abscess of left lower leg: (2) Rupture of left Achilles tendon: (3) Hypertension: (4) Depression:
--- NOTE | 2023-07-27 12:01 | PM.DS1 ---
DS: Providers Provider Date of admission: 07/21/23 14:25 Primary care physician: JULIO C JARRETT Admitting clinician: Duke Gan Consults: 07/21/23 14:06 Consult to Podiatry Routine Consulting Provider: Deng Remy Reason for consultation: left leg abscess Has provider been notified: Yes 07/22/23 09:33 Physical Therapy Eval and Treat Routine Reason for consultation: left achilles abscess Attending physician on discharge: Jacquie Roberson DS: Diagnosis Discharge Diagnosis (1) Abscess of left lower leg: (2) Rupture of left Achilles tendon: (3) Hypertension: (4) Depression: DS: Summary Hospital Course Hospital Course: patient is s/p left leg incision and drainage with debridement of the Achilles tendon, wound VAC application DOS 07/22/2023, return to OR yesterday s/p left leg incision and drainage with debridement of the Achilles tendon, delayed primary closure. Splint in place. Patient is doing well this morning. Will be discharged home with bactrim and clindamycin, percocet and flexeril for pain and Xarelto for DVT prophylaxis. She has close follow up with Podiatry clinic, and is aware of non-weight baring status. No other home medications have changed. She is discharged home in stable condition. Time Spent with Patient Time attestation: Total time spent providing and/or coordinating discharge services: Time spent: greater than 30 minutes Exam Narrative Exam Narrative: General: Patient is alert, and oriented to person, place and time with normal affect, proper hygiene Skin: no visible rashes, or ulcers. left foot dressings c/d/i Head: atraumatic, acephalic Heart: Normal rate and rhythm, no murmurs/rubs/gallops Lungs: no audible wheezes, crackles and normal breath sounds all lung benz Abdomen: Normal audible bowel sounds, no distension, No palpable masses, no organomegaly, no rebound/guarding/ or rigidity Musculoskeletal: ROM is limited due to being in hospital bed, no swelling bilateral lower extremities Vascular: Normal carotid, radial, femoral, posterior tibial, and dorsalis pedis pulses Lymph: no supraclavicular, axillary, or anterior/posterior cervical adenopathy Neuro: CN II-X grossly intact, normal sensation upper and lower extremities Constitutional Vital Signs, click to edit/add: Last Vital Signs Temp 98.1 F 07/27/23 05:15 Pulse 67 07/27/23 05:15 Resp 18 07/27/23 05:15 BP 124/81 07/27/23 05:15 Pulse Ox 96 07/27/23 10:50 O2 Del Method Room Air 07/27/23 10:50 DS: Data Data Completed and Pending Labs on day of discharge: Labs from last 24 hours 07/27/23 07/26/23 04:37 12:50 WBC 9.9 RBC 3.67 L Hgb 10.9 L Hct 33.3 L MCV 90.7 MCH 29.7 MCHC 32.7 RDW 12.9 Plt Count 409 MPV 8.8 L Neut % (Auto) 72.0 Lymph % (Auto) 18.7 L [place] % (Auto) 7.6 Eos % (Auto) 0.5 L Baso % (Auto) 0.4 Neut # (Auto) 7.2 H Lymph # (Auto) 1.9 [place] # (Auto) 0.8 Eos # (Auto) 0.1 Baso # (Auto) 0.0 Abs Immat Gran (auto) 0.08 H Imm/Tot Granulo (auto) 0.8 H Sodium 137 Potassium 3.5 Chloride 105 Carbon Dioxide 28.4 Anion Gap 7.1 BUN 8.0 Creatinine 0.81 Est GFR ( Amer) >60 Est GFR (Non-Af Amer) >60 BUN/Creatinine Ratio 9.9 Glucose 118 H Calcium 8.4 L POC Glucose 99 Preliminary micro results at discharge 07/22/23 14:43 - Preliminary Abscess - Left 07/22/23 14:16 - Preliminary Abscess - Left 07/22/23 14:16 - Preliminary Abscess - Left Discharge Plan Discharge Disposition: Home, Self-Care Condition: Good Discharge Medications: New clindamycin HCl 300 mg capsule 300 mg PO Q6H 14 Days Qty: 56 0RF sulfamethoxazole-trimethoprim 800-160 mg tablet 1 tab PO BID 14 Days Qty: 28 0RF hydrocodone-acetaminophen 5-325 mg tablet 1 tab PO Q6H PRN (Reason: pain) 7 Days Qty: 28 0RF Xarelto 15 mg tablet 15 mg PO BID 21 Days Qty: 42 0RF Rx Instructions: must administer with a meal/food cyclobenzaprine 10 mg Tablet 10 mg PO TID PRN (Reason: leg pain) 10 Days Qty: 30 0RF Continued aspirin 81 mg tablet,chewable 81 mg PO QDAY venlafaxine [Effexor XR] 150 mg capsule,extended release 24hr 150 mg PO QPM pravastatin 40 mg tablet 40 mg PO DAILY aripiprazole [Abilify] 10 mg tablet 10 mg PO DAILY losartan 25 mg tablet 25 mg PO DAILY hydrochlorothiazide 25 mg tablet 25 mg PO DAILY Activity Detail: non weight baring on the left leg Diet: advance to your usual diet Patient Instructions: Sulfamethoxazole/Trimethoprim (By mouth) (Bactrim, Bactrim DS,..., Clindamycin (By mouth), Hydrocodone/Acetaminophen (By mouth), Rivaroxaban (By mouth) (Xarelto, Xarelto Starter Pack) Activity Restrictions/Additional Instructions: Dr remy's Pre printed Non weight bearing instructions given to pt Forms: Portal Instructions Follow Up Appointments: Follow up appt. with [facility] on Jul.30 @ 10:30am [address] [place] [address] Office#: [phone]
--- NOTE | 2023-07-29 16:01 | CM.DCFOLLOWU ---
Person spoke with: patient How are you feeling? well How is your pain? no pain Did you understand your discharge instructions? yes Do you have any questions about your discharge instructions? no Were you given any prescriptions at discharge? yes Were you able to get your prescriptions filled? yes Do you understand how to take your medications as ordered? yes Do you have any questions about your follow up appointment and do you plan to keep your follow up appointment? no questions, follow up 07/30/23 at wound center Is there anything else that you would like to discuss? no Questions/Comments/Concerns/Other:
== END 2023-07-27 13:42 | disposition home or self-care (01) | DRG 501 ==
LOC: ER 13:52 → MS 16:30
PROVIDERS: Family Medicine; Admitting Provider Family Medicine; Emergency Provider Emergency Medicine; PCP Internal Medicine; Visit Provider Podiatrist Foot & Ankle Surgery
PROC: 0LBT0ZZ Excision of Left Ankle Tendon, Open Approach (ICD-10-PCS; principal; 2023-07-22 12:10)
PROC: 0YQLXZZ Repair Left Ankle Region, External Approach (ICD-10-PCS; principal; 2023-07-26 09:10)
DX: M65.072 Abscess of tendon sheath, left ankle and foot (principal); T81.31XA Disruption of external operation (surgical) wound, not elsewhere classified, initial encounter; I10 Essential (primary) hypertension; S86.012A Strain of left Achilles tendon, initial encounter; F32.A Depression, unspecified; F41.9 Anxiety disorder, unspecified; B95.1 Streptococcus, group B, as the cause of diseases classified elsewhere; E78.5 Hyperlipidemia, unspecified; G47.33 Obstructive sleep apnea (adult) (pediatric); Z99.89 Dependence on other enabling machines and devices; Z79.899 Other long term (current) drug therapy; Z79.82 Long term (current) use of aspirin; Z88.0 Allergy status to penicillin; Z88.5 Allergy status to narcotic agent; Z98.890 Other specified postprocedural states; Z86.73 Personal history of transient ischemic attack (TIA), and cerebral infarction without residual deficits; Z82.3 Family history of stroke; Z82.49 Family history of ischemic heart disease and other diseases of the circulatory system
CPT/HCPCS: 36415; 80048; 80053; 80202; 82948; 83605; 85025; 85652; 86140; 87040; 87070; 87101; 87116; 87150; 87205; 87206; 88305; 94761; 96365; 96366; 96367; 96368; 96372; 96376; 97605; 99285; 99999; A6550; J1170; J2704; J3370

== ENCOUNTER 2023-10-06 13:29 | Outpatient (OUT) | payer OTHER, SELFPAY ==
--- NOTE | 2023-10-06 | XR_ITS ---
The [address] [address] Patient Name: LUIS FIGUEROA MRN: [id number] date: 1970 Sex: F Assigned Patient Location: [facility] Current Patient Location: Accession/Order Number: [id number] Exam Date: 10/06/2023 13:42 Report Date: 10/07/2023 13:23 At the request of: ДМИТРИЙ RÍOS Procedure: XR ankle LT min 3V STUDY: XR ankle LT min 3V, [id number] HISTORY: LEFT ANKLE PAIN COMPARISON: Left ankle x-rays 07/21/2023. FINDINGS: No acute fracture, dislocation, or suspicious osseous lesion. No lucency of the talar dome. There is disuse osteopenia throughout the visualized left foot, similar to slightly worse. Moderate Achilles insertional enthesopathy and medium-sized plantar calcaneal spur. Multipartite os peroneum are present. Mild subtalar joint osteoarthritis. XR/XR ankle LT min 3V IMPRESSION: No acute osseous abnormality. Electronically authenticated by: DIANA BROOKS Date: 10/07/2023 13:23
--- OUTSIDE RECORDS SUMMARY | 2023-11-16 15:20 | XMS_ITS | CCD ---
Author Name Unknown Address [address] [place] [address] Organization [facility] Care Team Providers Care Newspaper Delivery Driver Name Role Phone GIOVANNY MORENO Unavailable Unavailable VERONA, АНДРЕЙ Unavailable Unavailable TRABSANTHOSH MOREAUHAF Unavailable Unavailable VERONA АНДРЕЙ Unavailable Unavailable Britney Betancourt Unavailable Abel Wan Unavailable MD Julio C Jarrett Primary Care Provider VANESSA Wan Attending Provider MD Julio C Jarrett Attending Provider [phone] Abel Hurst Unavailable MD Julio C Jarrett Primary Care Provider MD Julio C Jarrett Attending Provider [phone] ДМИТРИЙ REMY Attending Unavailable ДМИТРИЙ REMY Consulting Unavailable ДМИТРИЙ REMY Admitting Unavailable DR JULIO C JARRETT Primary Care Unavailable LISSETTE TORRES Consulting Unavailable DR JULIO C JARRETT Primary Care Unavailable ДМИТРИЙ REMY Attending Unavailable ДМИТРИЙ REMY Consulting Unavailable ДМИТРИЙ REMY Admitting Unavailable LISSETTE TORRES Consulting Unavailable ДМИТРИЙ REMY Attending Unavailable ДМИТРИЙ REMY Consulting Unavailable ДМИТРИЙ REMY Admitting Unavailable DR JULIO C JARRETT Primary Care Unavailable IVANIA WICK Consulting Unavailable SHANA LUKE Consulting Unavailable GABE MCDANIEL Consulting Unavailable ДМИТРИЙ REMY Attending Unavailable ДМИТРИЙ REMY Admitting Unavailable DR JULIO C JARRETT Primary Care Unavailable AMELIE MARKS Admitting Unavailable AMELIE MARKS Attending Unavailable AMELIE MARKS Consulting Unavailable DR JULIO C JARRETT Primary Care Unavailable JOEY MENEZES Consulting Unavailable PAY ., DR PEDROZA Admitting Unavailable PAY ., DR PEDROZA Consulting Unavailable [place], DR BUNCH Primary Care Unavailable PAY ., DR PEDROZA Attending Unavailable SHELBY ECHAVARRIA Consulting Unavailable GIRMA, DR DELONTE Shannon Admitting Unavailabl e GIRMA, DR DELONTE Shannon Attending Unavailabl e REINEDUAR, DR DELONTE Shannon Consulting Unavailabl e KOLBY, DR BUNCH Primary Care Unavailable HARRELLS, DR WILLIAM Cedeno Consulting Unavailable JANNETTE QUINN Consulting Unavailable MARKER ., DR MARINO Admitting Unavailable KOLBY, DR BUNCH Primary Care Unavailable MARKER ., DR MARINO Attending Unavailable MARKER ., DR MARINO Consulting Unavailable SUNSHINE DUBON Consulting Unavailable DUKE MORRIS Attending Unavailable MD Julio C Jarrett Primary Care Provider RENAE Remy Attending Provider MD Duke Morris Attending Provider ADRIANO PIERCE Referring Unavailable ROVERTO CARRIZALES Attending Unavailab JULIO C Bob Referring Unavailable MATTHIEU PHILLIPS Attending Unavailable Дмитрий Remy Attending Unavailable Julio C Jarrett Primary Care Unavailable Дмитрий Remy Admitting Unavailable Дмитрий Remy Attending Unavailable Julio C Jarrett Primary Care Unavailable Дмитрий Remy Admitting Unavailable Дмитрий Remy Admitting Unavailable Дмитрий Remy Attending Unavailable NO FAMILY, PHYSICIAN Primary Care Unavailable NO FAMILY, PHYSICIAN Primary Care Unavailable Duke Morris Admitting Unavailable Duke Morris Attending Unavailable Unavailable Unavailable Unavailable Allergies Allergy Classification Reported Allergen(s) Allergy Type Date of Onset Reaction(s) Facility (12 sources) Amoxicillin; Translations: [amoxicillin] Drug Allergy 8 rash [facility] (6 sources) oxyCODONE; Translations: [oxycodone] Drug Allergy 8 Nausea [facility] (5 sources) Acetaminophen / oxyCODONE Drug Allergy vomiting [email or web address] [facility] [employer] Other (5 sources) SOAPS AND PERFUMES Propensity to adverse reactions Unknown [email or web address] [facility] [employer] Other (1 source) Acetaminophen / oxyCODONE Drug Allergy 9 [facility] Rep[facility] Medications Current Medications Medication Drug Class(es) Dates Sig (Normalized) Sig (Original) ARIPiprazole 5 mg oral tablet (2 sources) Atypical Antipsychotic take 1 tablet by mouth every twenty-four hours Abilify 5 MG 1 tablet Orally Once a day Active atorvastatin 20 mg oral tablet (5 sources) HMG-CoA Reductase Inhibitor Start: 03-15-20 18 take 20 mg by mouth once daily Atorvastatin Active 20 MG PO Daily March 15, 2018 12:00am 24 hr buPROPion hydrochloride 150 mg extended release oral tablet (2 sources) Aminoketone take 1 tablet by mouth every twenty-four hours Wellbutrin XL 150 MG 1 tablet in the morning Orally Once a day Active ergocalciferol 1.25 mg oral capsule (2 sources) Provitamin D2 Compound Start: 12-11-19 take 1 capsule by mouth every week Ergocalciferol 1.25 MG (55959 UT) 1 capsule Orally Q week for 90 day(s) Nov, Active famotidine 20 mg oral tablet (5 sources) Histamine-2 Receptor Antagonist take 1 tablet by mouth every twenty-four hours Pepcid 20 MG 1 tablet at bedtime as needed Orally Once a day Active gabapentin 300 mg oral capsule (10 sources) Anti-epileptic Agent Start: 08-03-20 take 300 mg by mouth once daily Gabapentin Active 300 MG PO Daily August 03, 2019 12:00am hydroCHLOROthiazide 25 mg oral tablet (10 sources) Thiazide Diuretic Start: 08-03-20 take 25 mg by mouth once daily Hydrochlorothiazide Active 25 MG PO Daily August 03, 2019 12:00am lidocaine 0.05 mg/mg medicated patch (2 sources) Antiarrhythmic, Amide Local Anesthetic Start: 05-09-20 Lidoderm 5 % 1-2 patch remove after 12 hours Externally Once a day PRN ONLY for 10 days Apr, Active losartan potassium 25 mg oral tablet (10 sources) Angiotensin 2 Receptor Pati Start: 08-03-20 take 25 mg by mouth once daily Losartan Active 25 MG PO Daily August 03, 2019 12:00am 24 hr metFORMIN hydrochloride 500 mg extended release oral tablet (5 sources) Biguanide take 1 tablet by mouth once daily at dinner metFORMIN HCl ER 500 MG take 1 tablet by mouth WITH EVENING MEAL once daily for 30 Active predniSONE 20 mg oral tablet (3 sources) Start: 07-22-20 take 1 tablet by mouth every twelve hours predniSONE 20 MG 1 tablet Orally twice a day for 6 days Jun, Active Start: 05-09-2022 take 1 tablet by sobia th every eight hours predniSONE 20 MG 1 tablet Orally 3 times a day for 6 days Apr, Active rosuvastatin calcium 10 mg oral tablet (5 sources) HMG-CoA Reductase Inhibitor take 1 tablet by mouth every twenty-four hours Crestor 10 MG 1 tablet Orally Once a day for 30 Active take 1 tablet by mouth once blas y Crestor 10 MG 1 tablet Orally Once a day for 30 Active 24 hr venlafaxine 150 mg extended release oral capsule (11 sources) Serotonin and Norepinephrine Reuptake Inhibitor Start: 03-15-2018 take 1 capsule by mouth once daily Venlafaxine (Effexor Xr) 150 mg Capsule,Extended Release 24hr Active 150 MG PO Daily March 15, 2018 12:00am take 1 tablet by sobia th every twenty-four hours Venlafaxine HCl 75 MG 1 tablet with food Orally Once a day Active Completed/Discontinued Medications Medication Drug Class(es) Dates Sig (Normalized) Sig (Original) busPIRone hydrochloride 10 mg oral tablet (7 sources) Start: 03-15-2018 End: 08-03-2019 take 10 mg by mouth once daily Buspirone Discontinued 10 MG PO Daily March 15, 2018 12:00am August 03, 2019 2:28pm take 1 tablet by sobia th every twelve hours busPIRone HCl 5 MG 1 tablet Orally Twice a day for 30 days Active lisinopril 10 mg oral tablet (4 sources) Angiotensin Converting Enzyme Inhibitor Start: 03-15-2018 End: 03-16-2018 take 10 mg by mouth once daily Lisinopril Discontinued 10 MG PO Daily March 15, 2018 12:00am March 16, 2018 11:27am Triamcinolone (8 sources) Corticosteroid Start: 08-22-2018 Kenalog -40 mg Jul, 40 mg Start: 03-03-2017 Kenalog -40 mg Feb, 40 mg Problems Active Problems Problem Classification Problem Date Documented Date Episodic/Chronic Abdominal hernia (5 sources) Hiatal hernia; Translations: [Diaphragmatic hernia without obstruction or gangrene] Episodic Anal and rectal conditions (5 sources) Anal and rectal polyp; Translations: [Rectal polyp] Episodic Anxiety disorders (5 sources) Generalized anxiety disorder; Translations: [Generalized anxiety disorder] Chronic Asthma (5 sources) Asthma; Translations: [Unspecified asthma, uncomplicated] Chronic Chronic kidney disease (3 sources) Chronic kidney disease stage 3; Translations: [Chronic kidney disease, stage 3 unspecified] Chronic Diabetes mellitus without complication (7 sources) Prediabetes; Translations: [Prediabetes] Onset: 12-11-2021 Resolved: 06-25-2022 Episodic Disorders of lipid metabolism (12 sources) Mixed hyperlipidemia; Translations: [Mixed hyperlipidemia] Onset: 12-11-2021 Resolved: 06-25-2022 Chronic Esophageal disorders (5 sources) Gastroesophageal reflux disease; Translations: [Gastro-esophageal reflux disease without esophagitis] Chronic Essential hypertension (8 sources) Hypertensive disorder; Translations: [Essential (primary) hypertension] Onset: 12-11-2021 Resolved: 06-25-2022 Chronic Hemorrhoids (5 sources) Hemorrhoids; Translations: [Unspecified hemorrhoids] Episodic Mood disorders (5 sources) Major depression, single episode; Translations: [Major depressive disorder, single episode, unspecified] Chronic Nonspecific chest pain (6 sources) Chest pain, unspecified; Translations: [Chest pain] Onset: 04-05-2018 03-15-2018 Episodic Nutritional deficiencies (6 sources) Vitamin D deficiency; Translations: [Vitamin D deficiency, unspecified] Onset: 12-11-2021 Resolved: 12-11-2021 Chronic Nutritional deficiencies (5 sources) Iron deficiency; Translations: [Iron deficiency] Episodic Osteoarthritis (5 sources) Osteoarthritis; Translations: [Unspecified osteoarthritis, unspecified site] Chronic Other and unspecified benign neoplasm (5 sources) History of polyp of colon; Translations: [Personal history of colonic polyps] Episodic Other endocrine disorders (5 sources) Disorder of adrenal gland; Translations: [Disorder of adrenal gland, unspecified] Chronic Other endocrine disorders (2 sources) Disorder of adrenal gland, unspecified Onset: 12-11-2021 Resolved: 06-25-2022 Chronic Other hereditary and degenerative nervous system conditions (5 sources) Restless legs; Translations: [Restless legs syndrome] Chronic Other nervous system disorders (4 sources) Piriformis syndrome; Translations: [Lesion of sciatic nerve, left lower limb] Chronic Other nervous system disorders (1 source) Lesion of sciatic nerve, left lower limb Onset: 05-09-2022 Resolved: 05-09-2022 Chronic Other nutritional; endocrine; and metabolic disorders (5 sources) Severe obesity; Translations: [Morbid (severe) obesity due to excess calories] Chronic Other nutritional; endocrine; and metabolic disorders (5 sources) Obese class II; Translations: [Body mass index (BMI) 36.0-36.9, adult] Chronic Other nutritional; endocrine; and metabolic disorders (5 sources) Obese class I; Translations: [Body mass index (BMI) 34.0-34.9, adult] Chronic Residual codes; unclassified (10 sources) Obstructive sleep apnea syndrome; Translations: [Obstructive sleep apnea (adult) (pediatric)] Chronic Residual codes; unclassified (2 sources) Obstructive sleep apnea (adult) (pediatric) Onset: 12-11-2021 Resolved: 06-25-2022 Chronic Residual codes; unclassified (5 sources) Memory impairment; Translations: [Other amnesia] Episodic Spondylosis; intervertebral disc disorders; other back problems (1 source) Spondylosis without myelopathy or radiculopathy, lumbosacral region; Translations: [SPONDYLS W/O MYELO-/RADICULOP LS] Onset: 08-10-2022 Chronic Sprains and strains (5 sources) Strain of left Achilles tendon, initial encounter; Translations: [STRAIN LEFT ACHILLES TENDON INITIAL] Onset: 02-15-2023 Episodic Transient cerebral ischemia (5 sources) Transient cerebral ischemia; Translations: [Transient cerebral ischemic attack, unspecified] Chronic Unclassified (2 sources) Chest pain, unspecified / R07.9(ICD-9) Onset: 04-05-2018 Unclassified (1 source) CONTACT W/AND (SUSP) EXPOS COVID-19; Translations: [CONTACT W/AND (SUSP) EXPOS COVID-19] Onset: 12-21-2022 Unclassified (2 sources) LOW BACK PAIN, UNSPECIFIED; Translations: [LOW BACK PAIN, UNSPECIFIED] Onset: 08-10-2022 Unclassified (1 source) Strain of left Achilles tendon, initial encounter; Translations: [Strain of left Achilles tendon, initial encounter] Onset: 07-20-2023 Unclassified (1 source) Other specified injury of left Achilles tendon, subsequent encounter; Translations: [Other specified injury of left Achilles tendon, subsequent encounter] Onset: 04-05-2023 Past or Other Problems Problem Classification Problem Date Documented Da te Episodic/Chronic Chronic kidney disease (4 sources) Chronic kidney disease; Translations: [Chronic kidney disease, stage 3 unspecified] Onset: 12-11-2021 Resolved: 06-25-2022 Conditions associated with dizziness or vertigo (4 sources) Dizziness and giddiness; Translations: [DIZZINESS AND GIDDINESS] Onset: 10-06-2022 Episodic E Codes: Struck by; against (2 sources) Striking against or struck by other objects, initial encounter; Translations: [Other cause of strike by thrown, projected or falling object, initial encounter] Onset: 12-11-2022 Episodic Fluid and electrolyte disorders (1 source) Hypokalemia Onset: 06-25-2022 Resolved: 06-25-2022 Episodic Open wounds of extremities (4 sources) Laceration without foreign body, left ankle, initial encounter; Translations: [Laceration of left Achilles tendon, initial encounter] Onset: 12-09-2022 Episodic Other aftercare (1 source) terminal superintendent (current) use of aspirin; Translations: [[facility] CURRENT USE OF ASPIRIN] Onset: 10-08-2022 Episodic Other aftercare (1 source) Other long term care administrator (current) drug therapy; Translations: [OTH [facility] CURRENT DRUG THERAPY] Onset: 10-08-2022 Episodic Other aftercare (1 source) Encounter for therapeutic drug level monitoring; Translations: [Encounter for therapeutic drug level monitoring] Onset: 07-25-2023 Episodic Other injuries and conditions due to external causes (1 source) Unspecified injury of right lower leg, initial encounter Onset: 07-22-2022 Resolved: 07-22-2022 Episodic Other non-traumatic joint disorders (1 source) Pain in right knee Onset: 07-22-2022 Resolved: 07-22-2022 Episodic Unclassified (1 source) LOW BACK PAIN, UNSPECIFIED; Translations: [LOW BACK PAIN, UNSPECIFIED] Onset: 08-06-2022 Results Test Name Value Interpretation Reference Range Facil ity BI MAMMOGRAM SCREENING TOMOS YNTHESIS BILATERALon 10-05-2023 BI MAMMOGRAM SCREENING TOMOSYNTHESIS BILATERAL This is a summary report. The complete report is available in the patient's medical record. If you cannot access the medical record, please contact the sending organization for a detailed fax or copy. EXAMINATION: BI MAMMOGRAM SCREENING TOMOSYNTHESIS BILATERAL CLINICAL HISTORY: screening COMPARISON: Prior from 2020. RESULT: 3-D tomosynthesis imaging of the bilateral breast(s) was performed. Density: Scattered fibroglandular density [2] There are no suspicious masses or asymmetries, areas of architectural distortion or suspicious areas of microcalcifications. Coarse calcifications similar to prior. Stable asymmetries. IMPRESSION: BIRADS 2 - Benign Recommended follow-up: Routine Screening Mamm Board Certified Radiologists. Accredited by the ACR and FDA. MAMMOGRAPHY IS VERY IMPORTANT TO YOUR HEALTH. THE [place] GUIDELINES RECOMMEND THAT WOMEN 40 YEARS OF AGE AND OLDER SHOULD HAVE A MAMMOGRAM EVERY YEAR. A REMINDER LETTER WILL BE SENT AT THE APPROPRIATE TIME. THIS FACILITY UTILIZES A REMINDER SYSTEM TO ENSURE ALL PATIENTS RECEIVE REMINDER NOTIFICATIONS AT THE APPROPRIATE TIME BASED ON THE RECOMMENDATIONS OF THIS EXAM. THIS INCLUDES REMINDERS FOR ROUTINE SCREENING MAMMOGRAMS, DIAGNOSTIC MAMMOGRAMS IN WHICH THE PATIENT IS ASKED TO RETURN FOR ADDITIONAL VIEWS, OR OTHER BREAST IMAGING INTERVENTIONS WHEN APPROPRIATE. THE PATIENT WILL BE PLACED IN THE APPROPRIATE REMINDER SYSTEM INCLUDING A REMINDER AT THE APPROPRIATE TIME FOR ANY PENDING ADDITIONAL VIEWS. ELECTRONICALLY SIGNED BY: Gabe Hayes MD Normal Not Available Comment on above: Order Comment: Last mammogram 2020 [facility]. Us or spot compression prn Serum or plasma trough vanco mycin levelOrdered By: Duke Morris on 07-25-2023 Vancomycin trough [Mass/Vol] 11.0 ug/mL 10.0-20 .0 [facility] Comment on above: Last dose: - Vancomycin,Troughon 07-25-20 Vancomycin,Trough 11.0 ug/mL Normal 10.0-20.0 [facility] Comment on above: Order Comment: FOR C RITICAL RESULTS CALL TO [facility] [id number] EXT [id number] Result Comment: Last dose: - PERFORMED BY: [place] [address] PATHOLOGIST DRAIN TECHNICIAN GONSALO BARKER M.D. Performed By: #### V ANCT #### [address] Physician Orderon 07-23-2023 Physician Order [id number]:127 Normal [facility] Vanco Troughon 07-23-2023 VANCOMYCIN 7 microgram/mL Low 10-20 [facility] Comment on above: Performed By: #### 2 [id number] #### [facility] [address] [place] [address] PROF CHEM 8 (BAS METB)on Anion gap [Moles/Vol] 14.5 mmol/L Normal [facility] Comment on above: Performed By: #### B MP #### [facility] [address] [place] [address] Dr. Dimitri Veliz Calcium [Mass/Vol] 9.0 mg/dL Normal 8.5-10.1 [facility] Comment on above: Performed By: #### B MP #### [facility] [address] [place] [address] Dr. Dimitri Veliz Chloride [Moles/Vol] 101 mmol/L Normal 98-107 [facility] Comment on above: Performed By: #### B MP #### [facility] [address] [place] [address] Dr. Dimitri Veliz CO2 [Moles/Vol] 31.4 mmol/L Normal 21.0-32.0 [facility] Comment on above: Performed By: #### B MP #### [facility] [address] [place] [address] Dr. Dimitri Veliz Creatinine [Mass/Vol] 0.82 mg/dL Normal 0.55-1.02 [facility] Comment on above: Performed By: #### B MP #### [facility] [address] [place] [address] Dr. Dimitri Veliz EGFR-AF CYMRAES >60 Normal >=60 [facility] Comment on above: Performed By: #### B MP #### [facility] [address] [address] [address] Dimitri Veliz EGFR-NON AF CYMRAES >60 Normal >=60 [facility] Comment on above: Performed By: #### B MP #### [facility] [address] [place] [address] Dr. Dimitri Veliz Glucose [Mass/Vol] 96 mg/dL Normal 74-106 [facility] Comment on above: Performed By: #### B MP #### [facility] [address] [place], [place] [address] Dr. Dimitri Veliz Potassium [Moles/Vol] 3.9 mmol/L Normal 3.5-5.1 [facility] Comment on above: Performed By: #### B MP #### [facility] [address] [place], [place] [address] Dr. Dimitri Veliz Sodium [Moles/Vol] 143 mmol/L Normal 136-145 [facility] Comment on above: Performed By: #### B MP #### [facility] [address] [address] [address] Dimitri Veliz Urea nitrogen [Mass/Vol] 10.0 mg/dL Normal 7.0-18.0 [facility] Comment on above: Performed By: #### B MP #### [facility] [address] [address] [address] Dimitri Veliz Urea nitrogen/Creatinine [Mass ratio] 12.2 mg/mg Normal [facility] Comment on above: Performed By: #### B MP #### [facility] [address] [address] [address] Dimitri Veliz MRI ANKLE LT WO CONon 2022 MRI ANKLE LT WO CON HISTORY: The patient has had prior repair of a rupture of the left Achilles tendon. Evaluate for tendon healing. MRI ANKLE LT WO CON: 02/15/2023 1:02 PM EDT COMPARISON: Radiographs left ankle 12/09/2022. TECHNIQUE: Multiplanar, multisequence MRI images of the ankle were obtained without contrast. FINDINGS: LIGAMENTS: The anterior talofibular ligament appears very thin and of low signal intensity. The calcaneofibular ligament, posterior talofibular ligament, and distal tibiofibular ligaments appear within normal limits. The deltoid ligament complex appears within normal limits. TENDONS: There is severe abnormal fusiform thickening and heterogeneous signal intensity involving the proximal to mid Achilles tendon and there are multiple susceptibility artifacts in this region. This is most compatible with a combination of postsurgical scarring and/or severe tendinopathy. Superimposed on this appearance is patchy abnormal increased T2/STIR signal intensity involving the majority of the AP thickness of the mid substance of the tendon spanning approximately 3.7 cm in craniocaudal dimension. This primarily involves the lateral half of the tendon, but this is also seen to extend into the medial half of the tendon. This involves greater than 80% of the AP thickness of the tendon. There appears to be a probable small soft tissue wound along the posterolateral aspect of the mid Achilles tendon. The other visualized portions of the tendons of the ankle appear within normal limits. SINUS TARSI AND TARSAL TUNNEL: No space-occupying mass is seen in the tarsal tunnel or the sinus tarsi. BONES AND JOINTS: The bone marrow signal intensity is age appropriate. No unstable osteochondral defect of the tibiotalar joint is identified. There are soft tissue anchors in the posterior aspect of the calcaneus. PLANTAR FASCIA: There is a plantar calcaneal enthesophyte. There appears to be moderate thickening and intermediate signal intensity of the proximal portion of the central band of the plantar fascia at its attachment to the calcaneus. SOFT TISSUES: No significant soft tissue swelling is seen. IMPRESSION: 1. There appears to be a probable comminution of postsurgical scarring and/or severe tendinopathy of the proximal to mid Achilles tendon. 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 There also appears to be a probable small soft tissue wound along the posterolateral aspect of the mid Achilles tendon and given this finding, the possibility of a superimposed infection of the underlying Achilles tendon should be considered. 2. Probable remote grade 2 sprain of the anterior talofibular ligament. 3. Mild to moderate plantar fasciitis with a plantar calcaneal enthesophyte. This report was placed in the wet read folder to be faxed and called to the referring clinician's office (Amelie Marks) on the morning of 02/17/2023 shortly after the study was presented for interpretation. Electronically authenticated by: JOEY MENEZES Date: 2023-02-17 07:43 Normal [facility] POINT OF CARE GLUCOSEon 11-29 Glucose [Mass/Vol] 99 mg/dL Normal 74-106 [facility] Comment on above: Performed By: #### P OCGLUC #### [facility] [address] [place] [address] Dr. Dimitri Veliz Glucose [Mass/Vol] 96 mg/dL Normal 74-106 [facility] Comment on above: Performed By: #### P OCGLUC ####[facility] [id number] [address]. Dimitri Veliz Covid-19 PCR (CVDTB)on 11-29 SARS-CoV-2 (COVID-19) RNA TJ+probe Ql (Unsp spec) Not detected Normal NOT DETECTED [facility] Comment on above: Result Comment: This test is not yet approved or cleared by the [place] FDA. When there are no FDA-approved or cleared tests available, and other criteria are met, FDA can make tests available under an emergency access mechanism called an Emergency Use Authorization (EUA). The EUA for this test is supported by the [employer] of Health and Human Service's (HHS's) declaration that circumstances exist to justify the emergency use of in vitro diagnostics for the detection and/or diagnosis of the virus that causes COVID-19. This EUA will remain in effect (meaning this test can be used) for the duration of the COVID-19 declaration justifying emergency of IVDs, unless it is terminated or revoked by FDA (after which the test may no longer be used). When diagnostic testing is negative, the possibility of a false negative should be considered in the context of a patient's recent exposures and the presence of clinical signs and symptoms consistent with SARS-CoV-2. Performed By: #### C VDTBH #### [facility] [address] [address] [address] Dimitri Veliz PROF CHEM 8 (BAS METB)on Anion gap [Moles/Vol] 14.8 mmol/L Normal [facility] Comment on above: Performed By: #### B MP #### [facility] [address] [address] [address] Dimitri Veliz Calcium [Mass/Vol] 9.4 mg/dL Normal 8.5-10.1 [facility] Comment on above: Performed By: #### B MP #### [facility] [address] [address] [address] Dimitri Veliz Chloride [Moles/Vol] 100 mmol/L Normal 98-107 [facility] Comment on above: Performed By: #### B MP #### [facility] [address] [address] [address] Dimitri Veliz CO2 [Moles/Vol] 25.1 mmol/L Normal 21.0-32.0 [facility] Comment on above: Performed By: #### B MP #### [facility] [address] [address] [address] Dimitri Veliz Creatinine [Mass/Vol] 0.95 mg/dL Normal 0.55-1.02 [facility] Comment on above: Performed By: #### B MP #### [facility] [address] [address] [address] Dimitri Veliz EGFR-AF CYMRAES >60 Normal >=60 [facility] Comment on above: Performed By: #### B MP #### [facility] [address] [address] [address] Dimitri Veliz EGFR-NON AF CYMRAES >60 Normal >=60 [facility] Comment on above: Performed By: #### B MP #### [facility] [address] [address] [address] Dimitri Veliz Glucose [Mass/Vol] 82 mg/dL Normal 74-106 The [facility] Comment on above: Performed By: #### B MP #### [facility] [address] [address] [address] Dimitri Veliz Potassium [Moles/Vol] 3.9 mmol/L Normal 3.5-5.1 The [facility] Comment on above: Performed By: #### B MP #### [facility] [address] [address] [address] Dimitri Veliz Sodium [Moles/Vol] 136 mmol/L Normal 136-145 The [facility] Comment on above: Performed By: #### B MP #### [facility] [address] [address] [address] Dimitri Veliz Urea nitrogen [Mass/Vol] 12.0 mg/dL Normal 7.0-18.0 [facility] Comment on above: Performed By: #### B MP #### [facility] [address] [place], [place] [address] Dr. Dimitri Veliz Urea nitrogen/Creatinine [Mass ratio] 12.6 mg/mg Normal The [facility] Comment on above: Performed By: #### B MP #### [facility] [address] [place], [place] [address] Dr. Dimitri Veliz XR ANKLE LT MIN 3 Von 2022 XR ANKLE LT MIN 3 V EXAM: XR ANKLE LT TX N 3 V HISTORY: Arthralgia of the ankle and/or foot COMPARISON: None. TECHNIQUE: 3 views of the ankle. FINDINGS: No evidence of fracture or significant malalignment. Ankle mortise is preserved. Talar dome is intact. Plantar calcaneal and dorsal calcaneal spurs. Soft tissue laceration at the posterior ankle with subcutaneous gas. Small focal subcutaneous radiodensity could relate to foreign body. IMPRESSION: Soft tissue laceration at the posterior ankle with subcutaneous gas. Small focal subcutaneous radiodensity could relate to foreign body. No evidence of acute fracture or dislocation. Electronically authenticated by: SUNSHINE DUBON Date: 2022-12-09 05:04 Normal The [facility] [place] l US Carotid, Bilateralon 09-30 US Carotid, Bilateral CLINICAL HISTORY: History of stroke/TIA. Hypertension. High cholesterol. COMPARISON: None. TECHNIQUE: Longitudinal, transverse and color flow doppler ultrasound imaging of the carotid and vertebral arteries of the neck were obtained. FINDINGS: The ultrasound scans of the carotid and vertebral arteries demonstrate the following: RIGHT CAROTID: There is mild echoic plaques involving the right carotid arteries and at the right carotid bifurcation. On doppler images, the peak systolic velocity measurements in centimeters per second are as follows: CCA 64 cm/sec; carotid bulb 82 cm/sec; proximal ICA 74 cm/sec; mid ICA 82 cm/sec; distal ICA 63 cm/sec; right ECA 113 cm/sec; The peak systolic ICA/CCA ratio is 1.3. This correlates to a predicted stenosis of less than 50%. LEFT CAROTID: There is mild echoic plaques involving the left carotid arteries and at the left carotid bifurcation. On doppler images, the peak systolic velocity measurements in centimeters per second are as follows: CCA 70 cm/sec; carotid bulb 80 cm/sec; proximal ICA 112 cm/sec; mid ICA 113 cm/sec; distal ICA 121 cm/sec; left ECA 91 cm/sec; The peak systolic ICA/CCA ratio is 1.7. This correlates to a predicted stenosis of less than 50%. VERTEBRAL ARTERIES: There is antegrade blood flow in the vertebral arteries bilaterally. Peak systolic velocity of right vertebral artery measures 56 cm/sec. Peak systolic velocity of left vertebral artery measures 60 cm/sec. IMPRESSION: RIGHT CAROTID: STENOSIS OF LESS THAN 50% IS PREDICTED IN THE RIGHT ICA. LEFT CAROTID: STENOSIS OF LESS THAN 50% IS PREDICTED IN THE LEFT ICA. THERE IS ANTEGRADE BLOOD FLOW IN BOTH VERTEBRAL ARTERIES. Validated velocity measurements with angiographic measurements, and velocity criteria are extrapolated from diameter data as defined by the Society of Radiologist in Ultrasound Consensus Conference Radiology 2003; 229; 330-346. The degree of stenosis recorded on this exam uses the same method of stratification used in NASCET trials. This complies ACR practice guidelines and the Society of Radiology in Ultrasound Consensus statement and provides adequate information for clinical decision making. Society of Radiologists in Ultrasound (SRU) Consensus statement was used to estimate internal carotid artery stenosis. See table below. Degree of Stenosis, % ICA PSC, cm/sec Plaque Estimate, % ICA/CCA PSV Ratio ICA EDV, cm/sec Normal <180 None <2.0 <40 <50 <180 <50 <2.0 <40 50-69% 180-230 >50 2.0-4.0 40-100 >70 but less than near occlusion >230 >50 >4.0 >100 Near occlusion High, low, or undetectable Visible Variable Variable Total occlusion Undetectable Visible, no detectable lumen Not applicable Not applicable *Plaque estimate (diameter reduction) with grayscale and color Doppler US Recommendations for Carotid Stenosis Interpretation Criteria, August 2021, Society of Radiologists in Ultrasound, Intersocietal Accreditation Commission Report reported and signed by Gabe Hayes on 10/19/2022 1050 Normal [facility] Specialist BNPon 10-06-2022 Natriuretic peptide B (Bld) [Mass/Vol] 19.0 pg/mL Normal <=900.0 The [facility] Comment on above: Performed By: #### B LOGGING CREW SUPERVISOR, CMADM, CMP ####[facility] [address] [place], [place] [address]UfFederico Dimitri Veliz CARDIAC ALICIA ADMITon 022 CK [Catalytic activity/Vol] 94 U/L Normal 26-192 The [facility] Comment on above: Performed By: #### B LOGGING CREW SUPERVISOR, CMADM, CMP ####[facility] [address] [address]Dr. Dimitri Veliz CK.MB [Mass/Vol] 2.43 ng/mL Normal <=3.60 The [facility] Comment on above: Performed By: #### B LOGGING CREW SUPERVISOR, CMADM, CMP ####[facility] [address] [address]Dr. Dimitri Veliz HSTROP 11.2 pg/mL Normal 4.0-51.3 The [facility] o[facility]ital Comment on above: Result Comment: CUT- OFF POINTS HAVE BEEN ESTABLISHED BASED ON THE FOURTH UNIVERSAL DEFINITIONS OF MYOCARDIAL INFARCTION. THE UPPER REFERENCE LIMIT (URL) OF TROPONIN, DEFINED THE 99TH PERCENTILE OF cTnI DISTRIBUTION IN A REFERENCE POPULATION, HAS BEEN CONFIRMED THE DECISION THRESHOLD FOR TX DIAGNOSIS. Performed By: #### B LOGGING CREW SUPERVISOR, CMADM, CMP ####[facility] [address] [address]Dr. Dimitri Veliz KAY 60 ng/mL Normal 9-82 The [facility]ital Comment on above: Performed By: #### B LOGGING CREW SUPERVISOR, CMADM, CMP ####[facility] [address] [address]Dr. Dimitri Veliz CBC AUTO DIFFon 10-06-2022 BASO # 0.1 103/ul Normal 0.0-0.1 The [facility] o[facility]ital Comment on above: Performed By: #### C BC ####[facility] [address] [place], [place] [address]Dr. Dianajayant Veliz Basophils/100 WBC (Bld) 1.1 % Normal 0.2-2.0 [facility] Comment on above: Performed By: #### C BC ####[facility] [address] [address]Dr. Dianajayant Veliz EO # 0.3 103/ul Normal 0.0-0.7 The [facility] o[facility]ital Comment on above: Performed By: #### C BC ####[facility] [address] [address]Dr. Dimitri Veliz Eosinophils/100 WBC (Bld) 3.3 % Normal 0.9-7.0 The [facility] Comment on above: Performed By: #### C BC ####[facility] At[address] [place], [place] [address]Dr. Dimitri Veliz Erythrocyte distribution wid th (RBC) [Ratio] 13.0 % Normal 11.0-15.0 The [facility] Comment on above: Performed By: #### C BC ####[facility] [address] [place], [place] [address]Dr. Dimitri Veliz Hematocrit (Bld) [Volume fraction] 38.1 % Normal 3 6.0-48.0 The [facility] Comment on above: Performed By: #### C BC ####[facility] [address] [place], [place] [address]Dr. Dimitri Veliz Hemoglobin (Bld) [Mass/Vol] 12.8 g/dL Normal 12.0-16. 0 The [facility] Comment on above: Performed By: #### C BC ####[facility] [address] [place], [place] [address]Dr. Dimitri Veliz IG # 0.03 10e3/ul Normal 0.00-0.03 The [facility] Comment on above: Performed By: #### C BC ####[facility] [address] [place], [place] [address]Dr. Dimitri Veliz IG % 0.4 % Normal 0.0-0.5 The [facility] o[facility]ital Comment on above: Performed By: #### C BC ####[facility] U[address] [place], [place] [address]Dr. Dimitri Veliz LYMPH # 2.2 103/ul Normal 1.2-3.8 The [facility] Comment on above: Performed By: #### C BC ####[facility] [address] [place], [place] [address]Dr. Dimitri Veliz Lymphocytes/100 WBC (Bld) 25.7 % Normal 20.5-60.0 The [facility] Comment on above: Performed By: #### C BC ####[facility] [address] [id number]. Dimitri Veliz MANUAL DIFF REQ NO Normal [facility] Comment on above: Performed By: #### C BC ####[facility] [address] [place], [place] [address]Ji. Dimitri Veliz MCH (RBC) [Entitic mass] 30.1 pg Normal 26.7-34.0 [facility] Comment on above: Performed By: #### C BC ####[facility] [address] [id number]. Dimitri Veliz MCHC (RBC) [Mass/Vol] 33.6 g/dL Normal 29.9-35.2 [facility] Comment on above: Performed By: #### C BC ####[facility] [address] [address]Dr. Dimitri Veliz MCV (RBC) [Entitic vol] 89.6 fL Normal 81.0-99.0 [facility] Comment on above: Performed By: #### C BC ####[facility] [address] [place], [place] [address]Dr. Dimitri Veliz MONO # 0.7 103/ul Normal 0.3-0.8 The [facility] Comment on above: Performed By: #### C BC ####[facility] [address] [place], [place] [address]Dr. Dimitri Veliz Monocytes/100 WBC (Bld) 7.9 % Normal 1.7-12.0 [facility] Comment on above: Performed By: #### C BC ####[facility] [address] [place], [place] [address]Dr. Dimitri Veliz NEUT # 5.2 103/ul Normal 1.4-6.5 The [facility] Comment on above: Performed By: #### C BC ####[facility] [address] [place], [place] [address]Dr. Dimitri Veliz Neutrophils/100 WBC (Bld) 61.6 % Normal 43.0-75.0 The [facility] Comment on above: Performed By: #### C BC ####[facility] [address] [address]Dr. Dimitri Veliz Platelet mean volume (Bld) [Entitic vol] 8.9 fL Critically low 9.5-13.5 The [facility] pital Comment on above: Performed By: #### C BC ####[facility] [address] [address]Dr. Dimitri Veliz PLT 429 103/ul Normal 150-450 The [facility] ospital Comment on above: Performed By: #### C BC ####[facility] [address] [place], [place] [address]Dr. Dianajayant Veliz RBC 4.25 106/ul Normal 4.20-5.40 The [facility] Comment on above: Performed By: #### C BC ####[facility] I[address] [place], [place] [address]Dr. Dianajayant Veliz WBC 8.5 103/ul Normal 4.0-11.0 The [facility]ital Comment on above: Performed By: #### C BC ####[facility] X[address] [place], [place] [address]Dr. Dimitri Veliz ER URINE PROFILEon 2 Bilirubin Ql (U) Negative Normal NEGATIVE The [facility] Comment on above: Performed By: #### U MICRO, ERUR ####[facility] [address] [place], [place] [address]Dr. Dimitri Veliz Clarity (U) CLEAR Normal CLEAR The [facility] Comment on above: Performed By: #### U MICRO, ERUR ####[facility] Sp[address] [place], [place] [address]Dr. Dimitri Veliz Color (U) YELLOW Normal YELLOW The [facility] o[facility]ital Comment on above: Performed By: #### U MICRO, ERUR ####[facility] F[address]om[address] [place], [place] [address]Dr. Dimitri Veliz ERUAHD A micrscopic examina tion will be performed if indicated. Normal The [facility] [place] l Comment on above: Performed By: #### U MICRO, ERUR ####[facility] [address] [address]Dr. Dimitri Veliz Glucose Ql (U) Negative Normal NEGATIVE The [facility] Comment on above: Performed By: #### U MICRO, ERUR ####[facility] [address] [address]Dr. Dimitri Veliz Hemoglobin Ql (U) TRACE-INTACT Abnormal NEGATIVE [facility] Comment on above: Performed By: #### U MICRO, ERUR ####[facility] [address] [place], [place] [address]Dr. Dianajayant Veliz Ketones Ql (U) Negative Normal NEGATIVE The [facility] Comment on above: Performed By: #### U MICRO, ERUR ####[facility] Cf[address] [place], [place] [address]Dr. Dianajayant Veliz LEUKOCYTES Negative Normal NEGATIVE The [facility] Comment on above: Performed By: #### U MICRO, ERUR ####[facility] [address] [place], [place] [address]Dr. Dimitri Veliz Nitrite Ql (U) Negative Normal NEGATIVE The [facility] Comment on above: Performed By: #### U MICRO, ERUR ####[facility] [address] [place], [place] [address]Dr. Dimitri Veliz pH (U) 6.0 [pH] Normal 5-9 The [facility] Comment on above: Performed By: #### U MICRO, ERUR ####[facility] [address] [place], [place] [address]Dr. Dimitri Veliz SPEC GRAVITY 1.025 Normal 1.005-<=1.025 The [facility] Comment on above: Performed By: #### U MICRO, ERUR ####[facility] [address] [place], [place] [address]Dr. Dianajayant Veliz UA PROTEIN Negative Normal NEGATIVE/ TRACE The [facility] Comment on above: Performed By: #### U MICRO, ERUR ####[facility] [address] [place], [place] [address]Dr. Dimitri Veliz UR MICRO IND INDICATED Normal The [facility] Comment on above: Performed By: #### U MICRO, ERUR ####[facility] [address] [address]Dr. Dimitri Veliz Urobilinogen Qn (U) 0.2 {Padmini'U}/dL Normal 0.2 - 1. 0 [facility] Comment on above: Performed By: #### U MICRO, ERUR ####[facility] [address] [address]Dr. Dimitri Veliz PROF 14(COMP METB)on 022 Albumin [Mass/Vol] 4.0 g/dL Normal 3.4-5.0 [facility] Comment on above: Performed By: #### B LOGGING CREW SUPERVISOR, CMADM, CMP ####[facility] [address] [address]Dr. Dimitri Veliz Albumin/Globulin [Mass ratio] 1.0 {ratio} Normal [facility] Comment on above: Performed By: #### B LOGGING CREW SUPERVISOR, CMADM, CMP ####[facility] [address] [address]Dr. Dimitri Veliz ALP [Catalytic activity/Vol] 91 U/L Normal 46-116 [facility] Comment on above: Performed By: #### B LOGGING CREW SUPERVISOR, CMADM, CMP ####[facility] [address] [address]Dr. Dimitri Veliz ALT [Catalytic activity/Vol] 34 U/L Normal 14-59 [facility] Comment on above: Performed By: #### B LOGGING CREW SUPERVISOR, CMADM, CMP ####[facility] [address] [address]Dr. Dimitri Veliz Anion gap [Moles/Vol] 8.6 mmol/L Normal [facility] Comment on above: Performed By: #### B LOGGING CREW SUPERVISOR, CMADM, CMP ####[facility] [address] [address]Dr. Dimitri Veliz AST [Catalytic activity/Vol] 18 U/L Normal 15-37 [facility] Comment on above: Performed By: #### B LOGGING CREW SUPERVISOR, CMADM, CMP ####[facility] [address] [id number]. Dimitri Veliz Bilirubin [Mass/Vol] 0.5 mg/dL Normal 0.2-1.0 The [facility] Comment on above: Performed By: #### B LOGGING CREW SUPERVISOR, CMADM, CMP ####[facility] [address] [address]Dr. Dimitri Veliz Calcium [Mass/Vol] 9.5 mg/dL Normal 8.5-10.1 [facility] Comment on above: Performed By: #### B LOGGING CREW SUPERVISOR, CMADM, CMP ####[facility] [address] [address]Dr. Dimitri Veliz Chloride [Moles/Vol] 101 mmol/L Normal 98-107 The [facility] Comment on above: Performed By: #### B LOGGING CREW SUPERVISOR, CMADM, CMP ####[facility] [address] [address]Dr. Dimitri Veliz CO2 [Moles/Vol] 29.1 mmol/L Normal 21.0-32.0 The [facility] Comment on above: Performed By: #### B LOGGING CREW SUPERVISOR, CMADM, CMP ####[facility] [address] [address]Dr. Dimitri Veliz Creatinine [Mass/Vol] 0.86 mg/dL Normal 0.55-1.02 [facility] Comment on above: Performed By: #### B LOGGING CREW SUPERVISOR, CMADM, CMP ####[facility] [address] [address]Dr. Dimitri Veliz EGFR-AF CYMRAES >60 Normal >=60 The [facility] Comment on above: Performed By: #### B LOGGING CREW SUPERVISOR, CMADM, CMP ####[facility] [address] [address]Dr. Dimitri Veliz EGFR-NON AF CYMRAES >60 Normal >=60 The [facility] Comment on above: Performed By: #### B LOGGING CREW SUPERVISOR, CMADM, CMP ####[facility] [address] [address]Dr. Dimitri Veliz Globulin (S) [Mass/Vol] 4.0 g/dL Normal [facility] Comment on above: Performed By: #### B LOGGING CREW SUPERVISOR, CMADM, CMP ####[facility] [address] [address]Dr. Dimitri Veliz Glucose [Mass/Vol] 110 mg/dL Critically high 74-106 [facility] Comment on above: Performed By: #### B LOGGING CREW SUPERVISOR, CMADM, CMP ####[facility] [address] [address]Dr. Dimitri Veliz Potassium [Moles/Vol] 3.7 mmol/L Normal 3.5-5.1 [facility] Comment on above: Performed By: #### B LOGGING CREW SUPERVISOR, CMADM, CMP ####[facility] [address] [address]Dr. Dimitri Veliz Protein [Mass/Vol] 8.0 g/dL Normal 6.4-8.2 [facility] Comment on above: Performed By: #### B LOGGING CREW SUPERVISOR, CMADM, CMP ####[facility] [address] [address]Dr. Dimitri Veliz Sodium [Moles/Vol] 135 mmol/L Critically low 136-145 [facility] Comment on above: Performed By: #### B LOGGING CREW SUPERVISOR, CMADM, CMP ####[facility] [address] [address]Dr. Dimitri Veliz Urea nitrogen [Mass/Vol] 14.0 mg/dL Normal 7.0-18.0 [facility] Comment on above: Performed By: #### B LOGGING CREW SUPERVISOR, CMADM, CMP ####[facility] [address] [address]Dr. Dimitri Veliz Urea nitrogen/Creatinine [Mass ratio] 16.3 mg/mg Normal [facility] Comment on above: Performed By: #### B LOGGING CREW SUPERVISOR, CMADM, CMP ####[facility] [address] [address]Dr. Dimitri Veliz URINE MICROSCOPIC ONLYon BACTERIA NONE SEEN Normal NONE SEEN The [facility] Comment on above: Performed By: #### U MICRO, ERUR ####[facility] [address] [address]Dr. Dimitri Veliz Bacteria identified Cx Nom (U) NOT INDICATED Normal The [facility] Comment on above: Performed By: #### U MICRO, ERUR ####[facility] [address] [address]Dr. Dimitri Veliz CAST NONE SEEN Normal NONE SEEN The [facility] ospital Comment on above: Performed By: #### U MICRO, ERUR ####[facility] [address] [address]Dr. Dimitri Veliz Crystals LM Nom (Urine sed) NONE SEEN Normal NONE SEE N The [facility] Comment on above: Performed By: #### U MICRO, ERUR ####[facility] [address] [place], [place] [address]Dr. Dimitri Veliz Epithelial cells LM Ql (Urin e sed) MODERATE Abnormal NONE SEEN /RARE The [facility] pital Comment on above: Performed By: #### U MICRO, ERUR ####[facility] [address] [place], [place] [address]Dr. Dimitri Veliz MUCOUS NONE SEEN Normal NONE SEEN [facility] ospital Comment on above: Performed By: #### U MICRO, ERUR ####[facility] [address] [place], [place] [address]Dr. Dimitri Veliz RBC 2-5 Abnormal 0-2 [facility] ospital Comment on above: Performed By: #### U MICRO, ERUR ####[facility] [address] [place], [place] [address]Dr. Dimitri Veliz WBC NONE SEEN Normal NONE SEEN [facility] ospital Comment on above: Performed By: #### U MICRO, ERUR ####[facility] [address] [place], [place] [address]Dr. Dimitri Veliz XR CHEST 2 Von 10-06-2022 XR CHEST 2 V XR CHEST 2 V CLINICAL HISTORY: Shortness of breath. COMPARISON: 09/05/2021. TECHNIQUE: Frontal and lateral views of the chest. FINDINGS: Lungs are hyperinflated and clear. No pleural effusion or pneumothorax. Cardiomediastinal silhouette size is stable. Atherosclerotic aorta. Osteopenia. Thoracic spondylosis. IMPRESSION: No acute cardiopulmonary process. Electronically authenticated by: SHELBY ECHAVARRIA Date: 2022-10-06 13:59 Normal The [facility] CT ABD/PELVIS WO CONon 08-06 CT ABD/PELVIS WO CON EXAMINATION: CT ABD /PELVIS WO CON, 08/06/2022 8:11 AM EDT HISTORY: CALCULUS OF KIDNEY COMPARISON: 02/26/2021 TECHNIQUE: CT scan of the abdomen and pelvis was performed without IV contrast. CT dose reduction technique was used, including Automated Exposure Control. FINDINGS: LUNG BASES: No visible pulmonary or pleural disease. LIVER: Diffuse hypoattenuation consistent with steatosis. Focal sparing at the gallbladder fossa BILIARY: No dilatation or calcification. PANCREAS: No lesion, fluid collection, ductal dilatation, or atrophy. SPLEEN: No enlargement or focal lesion. ADRENALS: No mass or enlargement. KIDNEYS: Right renal cortical hypodensity with peripheral calcification. Minimally calcified cyst is favored. No hydronephrosis or obstructing nephrolithiasis BOWEL/MESENTERY: Nonobstructive bowel gas pattern. Normal appendix. AORTA/VASCULAR: No aortic aneurysm. Atherosclerosis. RETROPERITONEUM: No mass or adenopathy. LYMPH NODES: No adenopathy. URINARY BLADDER: No visible focal wall thickening, lesion, or calculus. PELVIC ORGANS: No visible mass. Pelvic organs appropriate for patient age. ABDOMINAL WALL: No mass or hernia. BONES: No bony lesion or fracture. 3 mm anterolisthesis of L4 on L5. Moderate disc space narrowing L4-L5 OTHER: Negative. IMPRESSION: No obstructive uropathy Electronically authenticated by: WILLIAM CLAUDIO Date: 2022-08-06 08:52 Normal The [facility] ER URINE PROFILEon 2 Bilirubin Ql (U) Negative Normal NEGATIVE The [facility] Comment on above: Performed By: #### E MONSTER MIMS #### [facility] Laboratory [address] [place] [address] Dr. Dimitri Veliz Clarity (U) CLEAR Normal CLEAR The [facility] Comment on above: Performed By: #### MONSTER SHEPARD #### [facility] Laboratory [address] [address] [address] Dimitri Veliz Color (U) LT. YELLOW Normal YELLOW [facility] ospital Comment on above: Performed By: #### E FELICITA UMICRO #### [facility] Laboratory [address] [place] [address] Dr. Dimitri ESQUIVEL A micrscopic examina tion will be performed if indicated. Normal The [facility] l Comment on above: Performed By: #### E RUR, UMICRO #### [facility] Laboratory [address] [place] [address] Dr. Dimitri Veliz Glucose Ql (U) Negative Normal NEGATIVE [facility] Comment on above: Performed By: #### E RUR, UMICRO #### [facility] Laboratory [address] [place] [address] Dr. Dimitri Veliz Hemoglobin Ql (U) SMALL Abnormal NEGATIVE The [facility] Comment on above: Performed By: #### E RUR, UMICRO #### [facility] [address] [place] [address] Dr. Dimitri Veliz Ketones Ql (U) Negative Normal NEGATIVE The [facility] Comment on above: Performed By: #### E RUR, UMICRO #### [facility] Laboratory [address] [place] [address] Dr. Dimitri Veliz LEUKOCYTES Negative Normal NEGATIVE The [facility] ostal Comment on above: Performed By: #### E RUR, UMICRO #### [facility] [address] [place] [address] Dr. Dimitri Veliz Nitrite Ql (U) Negative Normal NEGATIVE The [facility] Comment on above: Performed By: #### E RUR, UMICRO #### [facility] [address] [place] [address] Dr. Dimitri Veliz pH (U) 6.0 [pH] Normal 5-9 [facility] Comment on above: Performed By: #### E RUR, UMICRO #### [facility] [address] [place] [address] Dr. Dimitri Veliz SPEC GRAVITY 1.025 Normal 1.005-<=1.025 The [facility] Comment on above: Performed By: #### E RUR, UMICRO #### [facility] [address] [place] [address] Dr. Dimitri Veliz UA PROTEIN Negative Normal NEGATIVE/ TRACE [facility] Comment on above: Performed By: #### E RUR, UMICRO #### [facility] [address] [place] [address] Dr. Dimitri Veliz UR MICRO IND INDICATED Normal The [facility] Comment on above: Performed By: #### E RUR, UMICRO #### [facility] [address] [place] [address] Dr. Dimitri Veliz Urobilinogen Qn (U) 0.2 {Padmini'U}/dL Normal 0.2 - 1. 0 [facility] Comment on above: Performed By: #### E RUR, UMICRO #### [facility] [address] [place] [address] Dr. Dimitri Veliz URINE MICROSCOPIC ONLYon BACTERIA TRACE Abnormal NONE SEEN The [facility] Comment on above: Performed By: #### E FELICITA, UMICRO #### [facility] [address] [place] [address] Dr. Dimitri Veliz Bacteria identified Cx Nom (U) NOT INDICATED Normal The [facility] Comment on above: Performed By: #### E RULelo, UMICRO #### [facility] [address] [place] [address] Dr. Dimitri Veliz CAST NONE SEEN Normal NONE SEEN The [facility] Comment on above: Performed By: #### E RUR, UMICRO #### [facility] [address] [place] [address] Dr. Dimitri Veliz Crystals LM Nom (Urine sed) NONE SEEN Normal NONE SEE N The [facility] Comment on above: Performed By: #### E RUR, UMICRO #### [facility] [address] [place] [address] Dr. Dimitri Veliz Epithelial cells LM Ql (Urin e sed) MODERATE Abnormal NONE SEEN /RARE [facility] Comment on above: Performed By: #### E RUR, UMICRO #### [facility] [address] [address] [address] Dimitri Veliz MUCOUS NONE SEEN Normal NONE SEEN The [facility] ospital Comment on above: Performed By: #### MONSTER SHEPARD #### [facility] [address] [address] [address] Dimitri Veliz RBC 2-5 Abnormal 0-2 [facility] ospital Comment on above: Performed By: #### MONSTER SHEPARD #### [facility] [address] [address] [address] Dimitri Veliz WBC 0-2 Abnormal NONE SEEN [facility] ospital Comment on above: Performed By: #### MONSTER SHEPARD #### [facility] [address] [address] [address] Dimitri Veliz XR LSPINE 2_3 VIEWSon 2021 XR LSPINE 2_3 VIEWS EXAM: XR LSPINE 2_3 VIEWS HISTORY: Low back pain COMPARISON: Correlated with CT scan 02/26/2021 TECHNIQUE: 3 views lumbar spine FINDINGS: 5 nonrib-bearing lumbar vertebrae. Normal lumbar lordosis with minimal anterolisthesis of L4-L5. Vertebral body heights are maintained. No acute fracture identified. Mild to moderate degenerative disc disease and facet arthropathy is present throughout the lumbar spine, most significant at the L4-L5 and L5-S1 levels. The visualized bony pelvis is congruent with moderate osteoarthritis of the sacroiliac joints. The bowel gas pattern is unobstructed. IMPRESSION: Degenerative changes without acute osseous abnormality. Electronically authenticated by: JANNETTE QUINN Date: 2022-08-06 08:26 Normal The [facility] l XR knee RT 4V*on 07-22-2022 XR knee RT 4V* [facility] [employer] Other XR knee RT 4V* [facility] [employer] Other XR knee RT 4V* [address] [place] [address] [employer] Other XR knee RT 4V* [place] [address] No rt [employer] Other XR knee RT 4V* XRay Report [employer] Other XR knee RT 4V* Signed [employer] Other XR knee RT 4V* Patient: Eva Swenson MR#: [id number] [employer] Other XR knee RT 4V* [address] [employer] Other XR knee RT 4V* : 1970 Acct:[id number] [employer] Other XR knee RT 4V* Age/Sex: 52 / F ADM Date: 07/22/22 [employer] Other XR knee RT 4V* Loc: [id number] Room: Type: [facility] [employer] Other XR knee RT 4V* Attending Dr: Abel MENDEZ [employer] Other XR knee RT 4V* Copies to: Abel Wan V [employer] FINISHERImaging AdvantageMary [employer] Other XR knee RT 4V* Ordering Provider: Melonie Wan V BEL[employer] FINISHERImaging [facility]ageEx[facility] [employer] Other XR knee RT 4V* Date of Service: 07/22/22 [employer] Other XR knee RT 4V* [id number]) XR/XR knee RT 4V*: Acute pain of right knee [employer] Other XR knee RT 4V* 4 views RIGHT knee plain film [employer] Other XR knee RT 4V* COMPARISON:None [employer] Other XR knee RT 4V* HISTORY:Chronic RIGH T knee pain for several months. [employer] Other XR knee RT 4V* No fracture, disloca tion or focal soft tissue abnormality seen.No joint effusion identified. [facility] [employer] Other XR knee RT 4V* X R/XR knee RT 4V* [facility] [employer] Other XR knee RT 4V* IMPRESSION:No acute findings [employer] Other XR knee RT 4V* Impression dictated by: Danielito Haro M.D.07/22/2022 5:37 PM [employer] Other XR knee RT 4V* Dictation Location: [place] [address] [employer] Other XR knee RT 4V* Transcribed By: [facility] 07/22/22 173 [facility] [employer] Other XR knee RT 4V* Dictated By: Jesus Haro DO 07/22/22 173 [facility] [employer] Other XR knee RT 4V* Signed By: [employer] Other XR knee RT 4V* 07/22/22 1737 [employer] Other Complete Blood Counton 04-23 Erythrocyte distribution wid th (RBC) [Ratio] 13.1 % Normal 11.0-15.0 [facility] dical Specialist Comment on above: Performed By: #### L IPD, CMP, CBC #### [facility] [address], [place] [id number] Hematocrit (Bld) [Volume fraction] 39.9 % Normal 35.0-47.0 [facility] dical Specialist Comment on above: Performed By: #### L IPD, CMP, CBC #### [facility] [address], [place] [id number] Hemoglobin (Bld) [Mass/Vol] 12.8 g/dL Normal 11.6-15. 5 [place] [employer] Manager Comment on above: Performed By: #### L IPD, CMP, CBC #### [facility] [address] [place], [place] [id number] MCH (RBC) [Entitic mass] 29.9 pg Normal 27.0-33.0 [facility] Specialist Comment on above: Performed By: #### L IPD, CMP, CBC #### [facility] [address] [place], [place] [id number] MCHC (RBC) [Mass/Vol] 32.1 g/dL Normal 32.0-36.0 [facility] Specialist Comment on above: Performed By: #### L IPD, CMP, CBC #### [facility] [address] [place], [place] [id number] MCV (RBC) [Entitic vol] 93 fL Normal 80-100 N [facility] Specialist Comment on above: Performed By: #### L IPD, CMP, CBC #### [facility] [address] [place], [place] [id number] Platelet mean volume (Bld) [Entitic vol] 9.00 fL Normal 7.50-12.50 [facility] Specialist Comment on above: Performed By: #### L IPD, CMP, CBC #### [facility] [address] [place], [place] [id number] Platelets (Bld) [#/Vol] 336 10*3/uL Normal 140-400 [facility] Specialist Comment on above: Performed By: #### L IPD, CMP, CBC #### [facility] [address] [place], [place] [id number] RBC (Bld) [#/Vol] 4.28 10*6/uL Normal 3.90-5.20 [facility] Specialist Comment on above: Performed By: #### L IPD, CMP, CBC #### [facility] [address] [place], [place] [id number] RDW-SD 44.9 fL Normal 37.0-50.0 [facility] Specialist Comment on above: Performed By: #### L IPD, CMP, CBC #### [facility] [address] [place], [place] [id number] WBC (Bld) [#/Vol] 7.0 10*3/uL Normal 3.8-11.0 [employer] [place] Social [employer] Manager Comment on above: Performed By: #### L IPD, CMP, CBC #### [facility] [address] [place], [place] [id number] Comprehensive Metabolic Pane evelyn 04-23-2022 Albumin [Mass/Vol] 4.5 g/dL Normal 3.6-5.1 [employer] [place] [employer] Manager Comment on above: Performed By: #### L IPD, CMP, CBC #### [facility] [address] [place], [place] [id number] Albumin/Globulin [Mass ratio] 1.8 {ratio} Normal 1.0-2 .5 [facility] Specialist Comment on above: Performed By: #### L IPD, CMP, CBC #### [facility] [address] [place], [place] [id number] ALP [Catalytic activity/Vol] 82 U/L Normal 35-119 [facility] Specialist Comment on above: Performed By: #### L IPD, CMP, CBC #### [facility] [address] [place], [place] [id number] ALT [Catalytic activity/Vol] 44 U/L High 6-33 [facility] Specialist Comment on above: Result Comment: 10/29 Female reference range changed. Performed By: #### L IPD, CMP, CBC #### [facility] [address] [place], [place] [id number] Anion gap [Moles/Vol] 17 mmol/L Normal 12-20 [facility] Specialist Comment on above: Result Comment: Effe ctive 12/04/2019 reference range changed. Performed By: #### L IPD, CMP, CBC #### [facility] [address] [place], [place] [id number] AST [Catalytic activity/Vol] 34 U/L Normal 9-34 [facility] Specialist Comment on above: Performed By: #### L IPD, CMP, CBC #### [facility] [address] [place], [place] [id number] Bilirubin [Mass/Vol] 0.33 mg/dL Normal 0.30-1.20 [facility] Specialist Comment on above: Performed By: #### L IPD, CMP, CBC #### [facility] [address] [place], [place] [id number] BUN/CREA 16 Ratio Normal 6-22 [facility] Comment on above: Performed By: #### L IPD, CMP, CBC #### [facility] [address] [place], [place] [id number] Calcium [Mass/Vol] 9.4 mg/dL Normal 8.6-10.2 [facility] Comment on above: Performed By: #### L IPD, CMP, CBC #### [facility] [address] [place], [place] [id number] Chloride [Moles/Vol] 101 mmol/L Normal 98-107 [facility] Comment on above: Performed By: #### L IPD, CMP, CBC #### [facility] [address] [place], [place] [id number] CO2 [Moles/Vol] 24 mmol/L Normal 20-31 [facility] Comment on above: Performed By: #### L IPD, CMP, CBC #### [facility] [address] [place], [place] [id number] Creatinine [Mass/Vol] 0.8 mg/dL Normal 0.6-1.4 [facility] Comment on above: Performed By: #### L IPD, CMP, CBC #### [facility] [address] [place], [place] [id number] eGFRAA 91 mL/min/1.73m2 Normal >60 [facility] Comment on above: Performed By: #### L IPD, CMP, CBC #### [facility] [address] [place], [place] [id number] eGFRNAA 75 mL/min/1.73m2 Normal >60 [facility] Comment on above: Performed By: #### L IPD, CMP, CBC #### [facility] [address] [place], [place] [id number] Globulin (S) [Mass/Vol] 2.5 g/dL Normal 1.9-3.7 [facility] Comment on above: Performed By: #### L IPD, CMP, CBC #### [facility] [address] [place], [place] [id number] Glucose [Mass/Vol] 92 mg/dL Normal 65-99 [employer] [place] [employer] Manager Comment on above: Result Comment: For FASTING Glucose --- ADA reference ranges: Normal 65-99 mg/dl Prediabetes 100-125 Diabetes >/= 126 Performed By: #### L IPD, CMP, CBC #### [facility] [address] [place], [place] [id number] Potassium [Moles/Vol] 4.1 mmol/L Normal 3.5-5.5 [facility] Comment on above: Performed By: #### L IPD, CMP, CBC #### [facility] [address] [place], [place] [id number] Protein [Mass/Vol] 7.0 g/dL Normal 6.1-8.1 [employer] [place] [employer] Comment on above: Performed By: #### L IPD, CMP, CBC #### [facility] [address] [place], [place] [id number] Sodium [Moles/Vol] 137 mmol/L Normal 135-146 [employer] [place] [employer] Manager Comment on above: Performed By: #### L IPD, CMP, CBC #### [facility] [address] [place], [place] [id number] Urea nitrogen [Mass/Vol] 13 mg/dL Normal 7-25 [facility] Social Media Manager Comment on above: Performed By: #### L IPD, CMP, CBC #### [facility] [address] [place], [place] [id number] Lipid Panelon 04-23-2022 Cholesterol [Mass/Vol] 332 mg/dL High 125-200 [facility] Comment on above: Result Comment: Low risk < 200mg/dL Borderline risk 201-239 mg/dl High risk > or equal to 240 Performed By: #### L IPD, CMP, CBC #### [facility] [address] [place], [place] [id number] Cholesterol in HDL [Mass/Vol] 50 mg/dL Normal >40 [facility] Social Media Manager Comment on above: Result Comment: High Cardiovascular Risk HDL <40 mg/dL Low Cardiovascular Risk HDL > or equal to 60 mg/dl Performed By: #### L IPD, CMP, CBC #### [facility] [address] [place], [place] [id number] Cholesterol in LDL [Mass/Vol] 230 mg/dL Normal [facility] Specialist Comment on above: Result Comment: LDL ATP III CLASSIFICATION LDL less than 100 mg/dl Optimal LDL 100-129 mg/dl Near or above optimal LDL 130-159 Borderline high LDL 160-189 High LDL greater than 189 mg/dl Very High Performed By: #### L IPD, CMP, CBC #### [facility] [address] [place], [place] [id number] Cholesterol in VLDL [Mass/Vol] 52 mg/dL Normal [facility] Specialist Comment on above: Performed By: #### L IPD, CMP, CBC #### [facility] [address] [place], [place] [id number] Cholesterol.total/Cholestero l in HDL [Mass ratio] 7 {ratio} Normal [facility] Specialist Comment on above: Performed By: #### L IPD, CMP, CBC #### [facility] [address] [place], [place] [id number] Triglyceride [Mass/Vol] 258 mg/dL High 30-150 [facility] Specialist Comment on above: Result Comment: TRIG ATPIII CLASSIFICATIONS TRIG less than 150 mg/dl Normal TRIG 150-199 mg/dl Borderline High TRIG 200-500 mg/dl High TRIG greather than 500 mg/dl Very High Performed By: #### L IPD, CMP, CBC #### [facility] [address] [place], [place] [id number] Complete Blood Count with Au to Diffon 01-21-2022 Basophils (Bld) [#/Vol] 0.08 10*3/uL Normal 0.00-0.20 [facility] Specialist Comment on above: Performed By: #### L IPD, CMP, CBCAD #### [facility] [address] [place], [place] [id number] Basophils/100 WBC (Bld) 1.0 % Normal [facility] Specialist Comment on above: Performed By: #### L IPD, CMP, CBCAD #### [facility] [address] [place], [place] [id number] Eosinophils (Bld) [#/Vol] 0.29 10*3/uL Normal 0.02-0.5 0 [facility] Specialist Comment on above: Performed By: #### L IPD, CMP, CBCAD #### [facility] [address] [place], [place] [id number] Eosinophils/100 WBC (Bld) 3.5 % Normal [facility] Specialist Comment on above: Performed By: #### L IPD, CMP, CBCAD #### [facility] [address] [place], [place] [id number] Erythrocyte distribution wid th (RBC) [Ratio] 13.2 % Normal 11.0-15.0 [facility] Specialist Comment on above: Performed By: #### L IPD, CMP, CBCAD #### [facility] [address] [place], [place] [id number] Hematocrit (Bld) [Volume fraction] 38.8 % Normal 35.0-47.0 [facility] Specialist Comment on above: Performed By: #### L IPD, CMP, CBCAD #### [facility] [address] [place], [place] [id number] Hemoglobin (Bld) [Mass/Vol] 12.6 g/dL Normal 11.6-15. 5 [facility] Specialist Comment on above: Performed By: #### L IPD, CMP, CBCAD #### [facility] [address] [place], [place] [id number] Lymphocytes (Bld) [#/Vol] 3.5 10*3/uL Normal 0.9-3.9 [facility] Specialist Comment on above: Performed By: #### L IPD, CMP, CBCAD #### [facility] [address] [place], [place] [id number] Lymphocytes/100 WBC (Bld) 42.2 % Normal [facility] Specialist Comment on above: Performed By: #### L IPD, CMP, CBCAD #### [facility] [address] [place], [place] [id number] MCH (RBC) [Entitic mass] 29.6 pg Normal 27.0-33.0 [facility] Specialist Comment on above: Performed By: #### L IPD, CMP, CBCAD #### [facility] [address] [place], [place] [id number] MCHC (RBC) [Mass/Vol] 32.5 g/dL Normal 32.0-36.0 [facility] Comment on above: Performed By: #### L IPD, CMP, CBCAD #### [facility] [address] [place], [place] [id number] MCV (RBC) [Entitic vol] 91 fL Normal 80-100 [facility] Specialist Comment on above: Performed By: #### L IPD, CMP, CBCAD #### [facility] [address] [place], [place] [id number] Monocytes (Bld) [#/Vol] 0.6 10*3/uL Normal 0.2-0.9 [facility] Comment on above: Performed By: #### L IPD, CMP, CBCAD #### [facility] [address] [place], [place] [id number] Monocytes/100 WBC (Bld) 7.4 % Normal [facility] Specialist Comment on above: Performed By: #### L IPD, CMP, CBCAD #### [facility] [address] [place], [place] [id number] Neutrophils (Bld) [#/Vol] 3.8 10*3/uL Normal 1.5-7.8 [facility] Specialist Comment on above: Performed By: #### L IPD, CMP, CBCAD #### [facility] [address] [place], [place] [id number] Neutrophils/100 WBC (Bld) 45.5 % Normal [facility] Comment on above: Performed By: #### L IPD, CMP, CBCAD #### [facility] [address] [place], [place] [id number] Platelet mean volume (Bld) [Entitic vol] 9.20 fL Normal 7.50-12.50 [facility] Specialist Comment on above: Performed By: #### L IPD, CMP, CBCAD #### [facility] [address] [place], [place] [id number] Platelets (Bld) [#/Vol] 384 10*3/uL Normal 140-400 [facility] Specialist Comment on above: Performed By: #### L IPD, CMP, CBCAD #### [facility] [address] [place], [place] [id number] RBC (Bld) [#/Vol] 4.25 10*6/uL Normal 3.90-5.20 [facility] Social Media Manager Comment on above: Performed By: #### L IPD, CMP, CBCAD #### [facility] [address] [place], [place] [id number] RDW-SD 44.0 fL Normal 37.0-50.0 [facility] Social Media Manager Comment on above: Performed By: #### L IPD, CMP, CBCAD #### [facility] [address] [place], [place] [id number] WBC (Bld) [#/Vol] 8.4 10*3/uL Normal 3.8-11.0 [employer] [place] Social [employer] Manager Comment on above: Performed By: #### L IPD, CMP, CBCAD #### [facility] [address] [place], [place] [id number] Comprehensive Metabolic Pane evelyn 01-21-2022 Albumin [Mass/Vol] 5.2 g/dL High 3.6-5.1 [facility] Social Media Manager Comment on above: Performed By: #### L IPD, CMP, CBCAD #### [facility] [address] [place], [place] [id number] Albumin/Globulin [Mass ratio] 2.4 {ratio} Normal 1.0-2 .5 [facility] Social Media Manager Comment on above: Performed By: #### L IPD, CMP, CBCAD #### [facility] [address] [place], [place] [id number] ALP [Catalytic activity/Vol] 77 U/L Normal 35-119 [facility] Social Media Manager Comment on above: Performed By: #### L IPD, CMP, CBCAD #### [facility] [address] [place], [place] [id number] ALT [Catalytic activity/Vol] 33 U/L Normal 6-33 [facility] Social Media Manager Comment on above: Result Comment: 10/29 Female reference range changed. Performed By: #### L IPD, CMP, CBCAD #### [facility] [address] [place], [place] [id number] Anion gap [Moles/Vol] 19 mmol/L Normal 12-20 [facility] Comment on above: Result Comment: Effe ctive 12/04/2019 reference range changed. Performed By: #### L IPD, CMP, CBCAD #### [facility] [address] [place], [place] [id number] AST [Catalytic activity/Vol] 28 U/L Normal 9-34 [facility] Comment on above: Performed By: #### L IPD, CMP, CBCAD #### [facility] [address] [place], [place] [id number] Bilirubin [Mass/Vol] 0.45 mg/dL Normal 0.30-1.20 [facility] Comment on above: Performed By: #### L IPD, CMP, CBCAD #### [facility] [address] [place], [place] [id number] BUN/CREA 22 Ratio Normal 6-22 [facility] Comment on above: Performed By: #### L IPD, CMP, CBCAD #### [facility] [address] [place], [place] [id number] Calcium [Mass/Vol] 10.3 mg/dL High 8.6-10.2 [facility] Comment on above: Performed By: #### L IPD, CMP, CBCAD #### [facility] [address] [place], [place] [id number] Chloride [Moles/Vol] 96 mmol/L Low 98-107 [facility] Comment on above: Performed By: #### L IPD, CMP, CBCAD #### [facility] [address] [place], [place] [id number] CO2 [Moles/Vol] 26 mmol/L Normal 20-31 [facility] Comment on above: Performed By: #### L IPD, CMP, CBCAD #### [facility] [address] [facility] [place] [id number] Creatinine [Mass/Vol] 1.0 mg/dL Normal 0.6-1.4 [facility] Comment on above: Performed By: #### L IPD, CMP, CBCAD #### [facility] [address] [place], [place] [id number] eGFRAA 70 mL/min/1.73m2 Normal >60 [facility] Comment on above: Performed By: #### L IPD, CMP, CBCAD #### [facility] [address] [place], [place] [id number] eGFRNAA 58 mL/min/1.73m2 Low >60 [facility] Social Media Manager Comment on above: Performed By: #### L IPD, CMP, CBCAD #### [facility] [address] [place], [place] [id number] Globulin (S) [Mass/Vol] 2.2 g/dL Normal 1.9-3.7 [facility] Specialist Comment on above: Performed By: #### L IPD, CMP, CBCAD #### [facility] [address] [place], [place] [id number] Glucose [Mass/Vol] 90 mg/dL Normal 65-99 [facility] Social Media Manager Comment on above: Result Comment: For FASTING Glucose --- ADA reference ranges: Normal 65-99 mg/dl Prediabetes 100-125 Diabetes >/= 126 Performed By: #### L IPD, CMP, CBCAD #### [facility] [address] [place], [place] [id number] Potassium [Moles/Vol] 4.5 mmol/L Normal 3.5-5.5 [facility] Social Media Manager Comment on above: Performed By: #### L IPD CMP, CBCAD #### [facility] [address] [place], [place] [id number] Protein [Mass/Vol] 7.4 g/dL Normal 6.1-8.1 [facility] Social Media Manager Comment on above: Performed By: #### L IPD, CMP, CBCAD #### [facility] [address] [place], [place] [id number] Sodium [Moles/Vol] 137 mmol/L Normal 135-146 [facility] Social Media Manager Comment on above: Performed By: #### L IPD, CMP, CBCAD #### [facility] [address] [place], [place] [id number] Urea nitrogen [Mass/Vol] 22 mg/dL Normal 7-25 [facility] Social Media Manager Comment on above: Performed By: #### L IPD, CMP, CBCAD #### [facility] [address] [place], [place] [id number] Lipid Panelon 01-21-2022 Cholesterol [Mass/Vol] 238 mg/dL High 125-200 No [facility] Center[facility] Comment on above: Result Comment: Low risk < 200mg/dL Borderline risk 201-239 mg/dl High risk > or equal to 240 Performed By: #### L IPD, CMP, CBCAD #### [facility] [address] [place], [place] [id number] Cholesterol in HDL [Mass/Vol] 63 mg/dL Normal >40 [facility] Specialist Comment on above: Result Comment: High Cardiovascular Risk HDL <40 mg/dL Low Cardiovascular Risk HDL > or equal to 60 mg/dl Performed By: #### L IPD, CMP, CBCAD #### [facility] [address] [place], [place] [id number] Cholesterol in LDL [Mass/Vol] 147 mg/dL Normal [facility] Specialist Comment on above: Result Comment: LDL ATP III CLASSIFICATION LDL less than 100 mg/dl Optimal LDL 100-129 mg/dl Near or above optimal LDL 130-159 Borderline high LDL 160-189 High LDL greater than 189 mg/dl Very High Performed By: #### L IPD, CMP, CBCAD #### [facility] [address] [place], [place] [id number] Cholesterol in VLDL [Mass/Vol] 28 mg/dL Normal [facility] Specialist Comment on above: Performed By: #### L IPD, CMP, CBCAD #### [facility] [address] [place], [place] [id number] Cholesterol.total/Cholestero l in HDL [Mass ratio] 4 {ratio} Normal [facility] Comment on above: Performed By: #### L IPD, CMP, CBCAD #### [facility] [address] [place], [place] [id number] Triglyceride [Mass/Vol] 139 mg/dL Normal 30-150 [facility] Social Media Manager Comment on above: Result Comment: TRIG ATPIII CLASSIFICATIONS TRIG less than 150 mg/dl Normal TRIG 150-199 mg/dl Borderline High TRIG 200-500 mg/dl High TRIG greather than 500 mg/dl Very High Performed By: #### L IPD, CMP, CBCAD #### [facility] [address] [place], [place] [id number] Vitamin B12on 01-21-2022 Cobalamin (Vitamin B12) [Mass/Vol] 317 pg/mL Normal 211-946 [facility] dical Specialist Comment on above: Performed By: #### L IPD, CMP, CBCAD #### [facility] [address] [place], [place] [id number] Complete Blood Counton 12-04 Erythrocyte distribution wid th (RBC) [Ratio] 12.9 % Normal 11.0-15.0 [facility] dicmt Specialist Comment on above: Performed By: #### M G, RADHA, URIC, VITD, CBC #### [facility] [address] [place], [place] [id number] Hematocrit (Bld) [Volume fraction] 39.8 % Normal 35.0-47.0 [facility] dicmt Specialist Comment on above: Performed By: #### M G, RADHA, URIC, VITD, CBC #### [facility] [address] [place], [place] [id number] Hemoglobin (Bld) [Mass/Vol] 12.9 g/dL Normal 11.6-15. 5 [facility] Specialist Comment on above: Performed By: #### M G, RADHA, URIC, VITD, CBC #### [facility] [address] [place], [place] [id number] MCH (RBC) [Entitic mass] 29.6 pg Normal 27.0-33.0 [facility] Specialist Comment on above: Performed By: #### M G, RADHA, URIC, VITD, CBC #### [facility] [address] [place], [place] [id number] MCHC (RBC) [Mass/Vol] 32.4 g/dL Normal 32.0-36.0 [facility] Specialist Comment on above: Performed By: #### M G, RADHA, URIC, VITD, CBC #### [facility] [address] [place], [place] [id number] MCV (RBC) [Entitic vol] 91 fL Normal 80-100 [facility] Specialist Comment on above: Performed By: #### M G, RADHA, URIC, VITD, CBC #### [facility] [address] [place], [place] [id number] Platelet mean volume (Bld) [Entitic vol] 9.60 fL Normal 7.50-12.50 [facility] dical Specialist Comment on above: Performed By: #### M G, RADHA, URIC, VITD, CBC #### [facility] [address] [place], [place] [id number] Platelets (Bld) [#/Vol] 349 10*3/uL Normal 140-400 [facility] Specialist Comment on above: Performed By: #### M G, RADHA, URIC, VITD, CBC #### [facility] [address] [place], [place] [id number] RBC (Bld) [#/Vol] 4.36 10*6/uL Normal 3.90-5.20 [facility] Specialist Comment on above: Performed By: #### M G, RADHA, URIC, VITD, CBC #### [facility] [address] [place], [place] [id number] RDW-SD 42.7 fL Normal 37.0-50.0 [facility] Specialist Comment on above: Performed By: #### M G, RADHA, URIC, VITD, CBC #### [facility] [address] [place], [place] [id number] WBC (Bld) [#/Vol] 8.0 10*3/uL Normal 3.8-11.0 [facility] Specialist Comment on above: Performed By: #### M G, RADHA, URIC, VITD, CBC #### [facility] [address] [place], [place] [id number] Magnesiumon 12-04-2021 Magnesium [Mass/Vol] 2.1 mg/dL Normal 1.5-2.[address] [facility] Comment on above: Performed By: #### L IPD, CMP, CBCAD #### [facility] [address] [place], [place] [id number] Renal Function Panelon 12-04 Albumin [Mass/Vol] 5.0 g/dL Normal 3.6-5.1 [facility] Social Media Manager Comment on above: Performed By: #### L IPD, CMP, CBCAD #### [facility] [address] [place], [place] [id number] Anion gap [Moles/Vol] 22 mmol/L High 12-20 [facility] Comment on above: Result Comment: Effe ctive 12/04/2019 reference range changed. Performed By: #### L IPD, CMP, CBCAD #### [facility] [address] [place], [place] [id number] Calcium [Mass/Vol] 10.2 mg/dL Normal 8.6-10.2 [facility] [place] Social Media Manager Comment on above: Performed By: #### L IPD, CMP, CBCAD #### [facility] [address] [place], [place] [id number] Chloride [Moles/Vol] 98 mmol/L Normal 98-107 [facility] Specialist Comment on above: Performed By: #### L IPD, CMP, CBCAD #### [facility] [address] [place], [place] [id number] CO2 [Moles/Vol] 22 mmol/L Normal 20-31 [facility] Comment on above: Performed By: #### L IPD, CMP, CBCAD #### [facility] [address] [place], [place] [id number] Creatinine [Mass/Vol] 0.9 mg/dL Normal 0.6-1.4 [facility] Specialist Comment on above: Performed By: #### L IPD, CMP, CBCAD #### [facility] [address] [place], [place] [id number] eGFRAA 75 mL/min/1.73m2 Normal >60 [facility] Specialist Comment on above: Performed By: #### L IPD, CMP, CBCAD #### [facility] [address] [place], [place] [id number] eGFRNAA 62 mL/min/1.73m2 Normal >60 [facility] Specialist Comment on above: Performed By: #### L IPD, CMP, CBCAD #### [facility] [address] [place], [place] [id number] Glucose [Mass/Vol] 107 mg/dL High 65-99 [facility] [place] Social Media Manager Comment on above: Result Comment: For FASTING Glucose --- ADA reference ranges: Normal 65-99 mg/dl Prediabetes 100-125 Diabetes >/= 126 Performed By: #### L IPD, CMP, CBCAD #### [facility] [address] [place] [id number] Phosphate [Mass/Vol] 4.2 mg/dL Normal 2.2-4.4 [facility] Comment on above: Performed By: #### L IPD, CMP, CBCAD #### [facility] [address] [facility] [place] [id number] Potassium [Moles/Vol] 3.7 mmol/L Normal 3.5-5.5 [facility] Comment on above: Performed By: #### L IPD, CMP, CBCAD #### [facility] [address] [place], [place] [id number] Sodium [Moles/Vol] 138 mmol/L Normal 135-146 [facility] Comment on above: Performed By: #### L IPD, CMP, CBCAD #### [facility] [address] [place], [place] [id number] Urea nitrogen [Mass/Vol] 19 mg/dL Normal 7-25 [facility] Comment on above: Performed By: #### L IPD, CMP, CBCAD #### [facility] [address] [place], [place] [id number] Uric Acidon 12-04-2021 URIC 6.3 mg/dL Normal 2.5-7.0 [facility] Comment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 12-11-2021 10:00-0500 Body mass index (BMI) [Ratio] 34.81 kg/m2 [facility] [place] Other [facility] Other 12-11-2021 10:00-0500 Body temperature 98.9 [degF] [facility] [place] Other [facility] Other 12-11-2021 10:00-0500 Body weight 91.99 kg Britney [place] Other [facility] Other 12-11-2021 10:00-0500 Diastolic blood pressure 70 mm[Hg] Britney [place] Other [facility] Other 12-11-2021 10:00-0500 Respiratory rate 18 /min Britney [place] Other [facility] Other 12-11-2021 10:00-0500 SaO2% (BldA) [Mass fraction] 98 % [facility] [place] Other [facility] Other 12-11-2021 10:00-0500 Systolic blood pressure 120 mm[Hg] Britney [place] Other [facility] Other Encounters Encounter Date Encounter Type Care Provider Facility Start: 11-15-2023 ambulatory Дмитрий Remy Faci lity:[facility] Start: 11-12-2023 ambulatory JLUIO C JARRETT Not Avail able Start: 10-26-2023 End: 10-27-2023 ambulatory ADRIANO PIERCE Not Available Start: 10-11-2023 End: 10-11-2023 ambulatory ROVERTO CARRIZALES Not Available Start: 07-25-2023 End: 07-25-2023 ambulatory PHYSICIAN NO FAMILY Facility:[facility] Start: 07-25-2023 End: 07-25-2023 ambulatory MD Julio C Jarrett Work Phone: [facility] Work Phone: Start: 07-25-2023 End: 07-25-2023 Departed Referred MD Julio C Jarrett Work Phone: [facility] [place] Work Phone: Start: 07-23-2023 End: 07-23-2023 ambulatory DUKE MORRIS Facility:[facility] Start: 07-20-2023 End: 07-20-2023 ambulatory Дмитрий Remy Facility:[facility] Start: 07-20-2023 Registered Recurring MD Julio C Jarrett Work Phone: [facility] [place] Work Phone: Start: 04-29-2023 ambulatory ДМИТРИЙ REMY Faci lity:[facility]1 Start: 04-20-2023 Encounter for preprocedural cardiovascular examination ДМИТРИЙ Gaspar [facility] Start: 04-20-2023 Encounter for preprocedural laboratory examination ДМИТРИЙ Gaspar [facility] Start: 04-19-2023 End: 04-20-2023 ambulatory ДМИТРИЙ REMY Facility:[facility] Start: 04-19-2023 End: 04-20-2023 Encounter for preprocedural cardiovascular examination [facility] Start: 04-05-2023 End: 04-05-2023 ambulatory Дмитрий Remy Facility:[facility] Start: 02-15-2023 End: 02-16-2023 ambulatory AMELIE MARKS Facility:[facility] Start: 12-21-2022 Encounter for other preprocedural examination [facility] Chasity [facility] Start: 12-21-2022 Encounter for preprocedural laboratory examination [facility] Chasity [facility] Start: 12-17-2022 End: 12-17-2022 ambulatory ДМИТРИЙ Chasity KHUSHBU Facility:[facility] Start: 12-15-2022 End: 12-16-[address] JULIO C JARRETT Facility:[facility] Start: 12-15-2022 End: 12-16-2022 Encounter for preprocedural laboratory examination DR JULIO C JARRETT Facility:[facility] Start: 12-09-2022 End: 12-09-[address] JAMILA LEIGH . Facility:[facility] Start: 10-26-2022 ambulatory Facility:[id number] Start: 10-20-2022 End: 10-20-2022 ambulatory MD Julio C Jarrett Work Phone: [facility] Work Phone: Start: 10-20-2022 End: 10-20-2022 Patient encounter procedure MD Julio C Jarrett Work Phone: [facility]Electro[facility]ostics Start: 10-06-2022 End: 10-06-[address] DANIELITO PAY . Facility:[facility] Start: 08-18-2022 End: 08-18-2022 ambulatory Abel Hurst Other [facility] Other Start: 08-18-2022 Telephone encounter Abel Hurst [facility] Start: 08-11-2022 ambulatory Facility:[id number] Start: 08-11-2022 End: 08-11-2022 Patient encounter procedure MD Julio C Jarrett Work Phone: [facility] Start: 08-06-2022 End: 08-06-[address] DELONTE RAYO Facility:[facility] Start: 07-22-2022 End: 07-22-2022 Patient encounter procedure MD Julio C Jarrett Work Phone: [facility] Start: 07-22-2022 End: 07-22-2022 ambulatory Abel Wan Other [facility] Other Start: 07-22-2022 Office outpatient vi sit 25 minutes Abel Savage [facility] Start: 06-25-2022 End: 06-25-2022 ambulatory Britney Asia Other [facility] Other Start: 06-25-2022 Office outpatient vi sit 15 minutes Britney [facility] Start: 05-09-2022 End: 05-09-2022 ambulatory Abel Wan Other [facility] Other Start: 05-09-2022 Office outpatient vi sit 15 minutes Abel Wan [facility] Start: 12-11-2021 End: 12-11-2021 ambulatory Britney Asia Other [facility] Other Start: 12-11-2021 Office outpatient vi sit 15 minutes Britney Asia [facility] [place] Start: 07-05-2018 Patient encounter GIOVANNY MORENO Facility:[id number] Start: 05-08-2018 Patient encounter GIOVANNY MORENO Facility:[id number] Procedures Date Procedure Procedure Detail Performing Clinician Start: 07-22-2022 X-ray of right knee MD Julio C Jarrett Work Phone: Immunizations Immunization Date Immunization Notes Care Provider Ferdinand horne 09-16-2020 influenza, injectable, quadrivalent, contains preservative Britney [place] Other [facility] Other 09-18-2019 influenza, injectable, quadrivalent, contains preservative Britney [place] Other [facility] Other NEGATED: Highlighted row has not occurred!03-27-2019 influenza, seasonal, injectable Patient Objection Britney Asia Other [facility] Other Payers Date Payer Category Payer Unknown [id number] 2023 Self-pay [id number] 1968 Unknown [id number] 2.16. [id number] 1968 Unknown [id number] 2.16. 840.1.732970.3.579.2.356 1968 Unknown [id number] 2.16.84 0.1.962617.3.579.2.593 1968 Unknown [id number] .16.84 0.1.040147.3.579.2.593 1968 Unknown [id number] 2.16.84 0.1.335995.3.579.2.593 1968 Unknown [id number] 2.16.84 0.1.000518.3.579.2.593 1968 Unknown [id number] 2.16.84 0.1.772736.3.579.2.593 1968 Unknown [id number] 2.16.84 0.1.888510.3.579.2.593 1968 Unknown [id number] 2.16.84 0.1.298524.3.579.2.593 1968 Unknown [id number] 2.16.84 0.1.248574.3.579.2.593 1968 Unknown [id number] 2.16.840 .1.971736.3.579.2.1259 1968 Unknown [id number] 2.16.840 .1.558721.3.579.2.1259 1968 Unknown [id number] 2.16.840 .1.101202.3.579.2.1259 1968 Unknown [id number] 2.16.840 .1.576044.3.579.2.1259 1968 Unknown [id number] 2.16.840. 1.999270.3.579.2.1259 1968 Unknown [id number] 2.16.840. 1.305406.3.579.2.1259 1959 Unknown [id number] 1959 Unknown [id number] 1959 Unknown [id number] 1959 Unknown Unknown [id number] Unknown [id number] 40.1.152071.3.579.2.531 Unknown [id number] 40.1.951665.3.579.2.531 Unknown [id number] 40.1.048211.3.579.2.531 Unknown [id number] 40.1.045252.3.579.2.531 Social History Date Type Detail Facility Tobacco smoking status MDIS Unknown if ever smoked [facility] Start: 1970 Sex Assigned At Female F [facility] Sex Assigned At Sex Assigned At [facility] [employer] Other Start: 08-09-2019 End: 08-09-2019 Tobacco smoking status NHIS Never smoked tobacco (finding) [facility] Medical Equipment Procedure Code Equipment Code Equipment Origin al Text Equipment Identifier Dates EGD, with Sweeney pH monitoring device placement [id number] FDA Start: 08-09-2019 Goals Date Patient Goal Desired Activity /State Evaluation note 07-22-2022 Note Date & Type Note Facility 07-22-2022 Evaluation note Encounter Date Diagnosis Assessment Notes Jun, Acute pain of right knee (ICD-10 - M25.561) Jun, Soft tissue injury of right knee, initial encounter (ICD-10 - S89.91XA) Take 1000mg of acetaminophen every 8 hours as needed for pain. Take prednisone as prescribed. Keep acewrap on the knee during the day for 10 days. Call in 10 days if you are still having pain as you will need an orthopedic referral. Given her R. knee is hurting worse then normal, will order XR of knee. I personally reviewed and interpreuted all of the imaging. There is extensive OA appreciated, however, no fractures or knee effusions. Differential includes medial meniscus injury or possible MCL injury. Will prescribe prednisone and advised her to take acetaminophen as needed. Will place alpa wrap over her knee. I feel she would benefit from a sports medicine referral for follow up. Also advised her to rest and ice knee. She understands and agrees with the plan. 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 She has unremarkable w/u for Salinas disease, primary hyperaldosteronism or pheochromocytoma. May, Chronic kidney disease, stage 3 unspecified (ICD-10 - N18.30) She has CKD due to HTN and Prediabetes. Her baseline serum creatinine is 0.9 -1.1 mg/dL. I discussed with her the importance of good blood sugar and hypertension control to surround the progression of CKD. May, HTN (hypertension) (ICD-10 - I10) Her blood pressures controlled. She appears to be euvolemic. Continue current dose of the losartan hydrochlorothiazide. May, Prediabetes (ICD-10 - R73.03) She takes Metformin. Continue current dose of the Metformin. I have advised her the importance of good blood sugar and HTN control to slow down the progression of CKD. May, TIFFANIE (obstructive sleep apnea) (ICD-10 - G47.33) I have advised to continue to follow with Dr. Franco for sleep apnea management. May, Dyslipidemia (ICD-10 - E78.5) Continue statins. Monitor lipid profile and LFTs May, Hypokalemia (ICD-10 - E87.6) She has Low Potassium and reported that she missed her potassium . I have advised her to comply with her potassium. I explained to her potential risk of hypokalemia including cardiac arrhythmias and [facility] Other Evaluation note 05-09-2022 Note Date & Type Note Facility 05-09-2022 Evaluation note Encounter Date Diagnosis Assessment Notes Apr, Piriformis syndrome of left side (ICD-10 - G57.02) Apply heating pad to affected area. Take medications as prescribed. Follow up with pcp if pain is still present in 7 days. Complete the excercises twice a day for 10 days. Given no recent trauma, I feel an xray is not necessary. Sign and symptoms consistent with piriformis syndrome. Will treat with prednisone and lidoderm patch.Advised to complete stretching excercises as directed. Advised to follow up with pcp if symptoms do not improve in 7 days. 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 She has unremarkable w/u for Salinas disease, primary hyperaldosteronism or pheochromocytoma. Nov, Chronic kidney disease, stage 3 unspecified (ICD-10 - N18.30) She has CKD due to HTN and Prediabetes. Her baseline serum creatinine is 0.9- 1.1 mg/dL. I discussed with her the importance of good blood sugar and hypertension control to surround the progression of CKD. Nov, HTN (hypertension) (ICD-10 - I10) Her blood pressures controlled. She appears to be euvolemic. Continue current dose of the losartan hydrochlorothiazide. Nov, Prediabetes (ICD-10 - R73.03) She takes Metformin. Continue current dose of the Metformin. I have advised her the importance of good blood sugar and HTN control to slow down the progression of CKD. Nov, TIFFANIE (obstructive sleep apnea) (ICD-10 - G47.33) I have advised to continue to follow with Dr. Franco for sleep apnea management. Nov, Dyslipidemia (ICD-10 - E78.5) Continue statins. Monitor lipid profile and LFTs Nov, Vitamin D deficiency (ICD-10 - E55.9) She has a vitamin deficiency but her calcium within normal limits. I prescribed oral ergocalciferol. [facility] [employer] Other Evaluation note Note Date & Type Note Facility Evaluation note No assessment information [facility] Work Phone: Evaluation note Note Date & Type Note Facility Evaluation note No Information [facility] [employer] Other History general Narrative - Reported Note Date & Type Note Facility History general Narrative - Reported Type Medical History Hyperlipidemia Medical History Hypertension Medical History Asthma Medical History NOSE BLEED Medical History TIFFANIE Medical History TIA Medical History HIATAL HERNIA Medical History Tubular adenoma of colon Medical History Family history of ga strointestinal tract malignancy Medical History Hemorrhoids without complication Medical History FAMILY HX COLONIC POLYPS Medical History High cholesterol Medical History Hypertension, essential, benign Medical History Major depressive dis order, single episode, moderate Medical History Generalized anxiety disorder Medical History Wheezing Medical History Obstructive Sleep Apnea/Hypopnea Medical History Restless Leg Syndrome Medical History Hypertension, essential, benign Medical History Migraine with aura, without mention of intractable migraine, without mention of status migrainosus Medical History Hypercholesteremia Medical History 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 Medical History 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 Medical History Complete rotator cuf f tear or rupture of right shoulder, not specified as traumatic Medical History Arthritis of right a cromioclavicular joint Medical History Osteoarthritis of hand, left Medical History Osteoarthritis of hand, right Medical History Erosive esophagitis Medical History sleep study 10/03/20 Medical History COVID Surgical History colonoscopy 11/2006, 09/2012 -p olyp Surgical History EGD ( 11/2006 ) Surgical History lumpectomy, right breast 2011 Surgical History rotator cuff surgery 10/06/16 Surgical History COLONOSCOPY 05/2018 Surgical History L rotator cuff 07/2020 Hospitalization History see above [facility] Other Summary Purpose Family History No Family History Records Found Relationship Condition Age at Onset Recorded Date/T quang father Hypercholesterolemia Unknown Hypertension Unknown Malignant neoplasm of prostate Unknown Not Specified Hypercholesterolemia Unknown Advance Directives No Advanced Directives Records Found Advance Directive Response Recorded Date/ Time Advance Directives No July 11:22am Advance Directive Response Recorded Date/ Time Advance Directives No July 10:22am Assessments No Assessments Information Available Reason for Referral Reason Follow up with Dr. Farrukh corado in sports med for suspicion of medial meniscus injury in 1 week Diagnosis 1 Soft tissue injury o f right knee, initial encounter (S89.91XA) Referral Organization [facility] ndjayy Referring Provider First Name Abel Referring Provider Last Name [place] Referring Provider Specialty Nurse Shay lin Referred Organization [facility] Referred Address [address] ,[place], [place],[address] Referred Provider Specialty Sport Medici ne Referral Priority Routine Chief Complaint and Reason for Visit Chief Complaint M25.561 Chief Complaint M25.561 R07.9 Chief Complaint R07.9 R55 Chief Complaint elft ankle strenghte sara Additional Source Comments INFORMATION SOURCE (unrecogn ized section and content) DATE CREATED AUTHOR 06/28/2018 [facility] Healthcare DATE CREATED AUTHOR AUTHOR'S ORGANIZ ATION 2020 [facility] DATE CREATED AUTHOR AUTHOR'S ORGANIZ ATION 04/20/2020 [facility] DATE CREATED AUTHOR AUTHOR'S ORGANIZ ATION 10/19/2022 [facility] dical Specialist DATE CREATED AUTHOR AUTHOR'S ORGANIZ ATION 11/05/2022 [facility] DATE CREATED AUTHOR AUTHOR'S ORGANIZ ATION 05/11/2023 [facility] DATE CREATED AUTHOR AUTHOR'S ORGANIZ ATION 07/24/2023 [facility] DATE CREATED AUTHOR AUTHOR'S ORGANIZ ATION 11/14/2023 [facility] dical Specialists [facility] DATE CREATED AUTHOR AUTHOR'S ORGANIZ ATION 11/15/2023 [facility] REASON FOR VISIT (unrecogniz ed section and content) CKD and Vit D deficiencyLEFT HIP PAINCKD and HTNRIGHT KNEE PAINOrthopedic Referral Update Care Teams (unrecognized sec tion and content) Team Status: Inactive Member Role Status Dates Julio C Jarrett MD Primary Care Provider, Attending Prov ider Active Team Status: Active Member Role Status Dates Julio C Jarrett MD Primary Care Provider Active Team Status: Inactive Member Role Status Dates Julio C Jarrett MD Primary Care Provider Active TOMAS CervantesC Attending Provider Activ e Team Status: Active Member Role Status Dates Julio C Jarrett MD Primary Care Provider Active Дмитрий Remy DPM MS Attending Provider Active Team Status: Inactive Member Role Status Dates Duke Morris MD Attending Provider Active Goals (unrecognized section and content) Goals may be documented in a n alternate section FOR RECORDS PERTAINING TO PATIENTS WHO ARE OR HAVE BEEN ENROLLED IN A CHEMICAL DEPENDENCY/SUBSTANCEABUSE PROGRAM, SOME INFORMATION MAY BE OMITTED. This clinical summary was aggregated from multiple sources. Caution should be exercised in using it in the provision of clinical care. This summary normalizes information from multiple sources, and as a consequence, information in this document may materially change the coding, format and clinical context of patient data. In addition, data may be omitted in some cases. CLINICAL DECISIONS SHOULD BE BASED ON THE PRIMARY CLINICAL RECORDS. [employer] provides no warranty or guarantee of the accuracy or completeness of information in this document.
== END 2023-10-06 13:30 | disposition home or self-care (01) ==
PROVIDERS: PCP Internal Medicine; Visit Provider Podiatrist Foot & Ankle Surgery
DX: S86.012A Strain of left Achilles tendon, initial encounter (principal); M77.32 Calcaneal spur, left foot
CPT/HCPCS: 73610

== ENCOUNTER 2024-05-05 09:02 | Outpatient (OUT) | payer OTHER, SELFPAY ==
--- NOTE | 2024-05-05 | XR_ITS ---
The [address] [address] Patient Name: LUIS FIGUEROA MRN: [id number] date: 1970 Sex: F Assigned Patient Location: Current Patient Location: Accession/Order Number: [id number] Exam Date: 05/05/2024 09:35 Report Date: 05/08/2024 04:03 At the request of: ДМИТРИЙ RÍOS Procedure: XR foot LT min 3V PROCEDURE: XR ankle LT min 3V, XR foot LT min 3V HISTORY: LEFT ANKLE PAIN , lateral ankle and midfoot swelling COMPARISON: XR ankle left 10/06/2023 FINDINGS: BONES:Mild narrowing of the first metatarsophalangeal joint. No fracture, acute abnormality, or significant arthropathy. Large calcaneal plantar spur and moderate sized degenerative enthesophyte at Achilles tendon insertion into the calcaneus. SOFT TISSUES:Mild soft tissue swelling. EFFUSION:None visible. OTHER: Negative. XR/XR foot LT min 3V IMPRESSION: 1. No acute or specific findings to account for patient's symptoms. 2. Mild degenerative changes. Electronically authenticated by: PRISCILLA WILKES Date: 05/08/2024 04:03
--- NOTE | 2024-05-05 | XR_ITS ---
The [address] [address] Patient Name: LUIS FIGUEROA MRN: [id number] date: 1970 Sex: F Assigned Patient Location: Current Patient Location: Accession/Order Number: [id number] Exam Date: 05/05/2024 09:35 Report Date: 05/08/2024 04:03 At the request of: ДМИТРИЙ RÍOS Procedure: XR ankle LT min 3V PROCEDURE: XR ankle LT min 3V, XR foot LT min 3V HISTORY: LEFT ANKLE PAIN , lateral ankle and midfoot swelling COMPARISON: XR ankle left 10/06/2023 FINDINGS: BONES:Mild narrowing of the first metatarsophalangeal joint. No fracture, acute abnormality, or significant arthropathy. Large calcaneal plantar spur and moderate sized degenerative enthesophyte at Achilles tendon insertion into the calcaneus. SOFT TISSUES:Mild soft tissue swelling. EFFUSION:None visible. OTHER: Negative. XR/XR ankle LT min 3V IMPRESSION: 1. No acute or specific findings to account for patient's symptoms. 2. Mild degenerative changes. Electronically authenticated by: PRISCILLA WILKES Date: 05/08/2024 04:03
== END 2024-05-05 09:03 | disposition home or self-care (01) ==
PROVIDERS: PCP Internal Medicine; Visit Provider Podiatrist Foot & Ankle Surgery
DX: M25.572 Pain in left ankle and joints of left foot (principal); S91.012A Laceration without foreign body, left ankle, initial encounter
CPT/HCPCS: 73610; 73630

== ENCOUNTER 2024-05-18 09:29 | Outpatient (OUT) | payer OTHER, SELFPAY ==
--- NOTE | 2024-05-18 | XR_ITS ---
The [address] [address] Patient Name: LUIS FIGUEROA MRN: [id number] date: 1970 Sex: F Assigned Patient Location: Current Patient Location: Accession/Order Number: [id number] Exam Date: 05/18/2024 09:30 Report Date: 05/19/2024 06:07 At the request of: SAVANNAH VALENZUELA Procedure: XR foot LT min 3V PROCEDURE: XR foot LT min 3V HISTORY: LEFT FOOT PAIN COMPARISON: XR foot left 05/05/2024 FINDINGS: BONES:Mild narrowing of the first metatarsophalangeal joint. Prominent degenerative enthesopathic spurring of the calcaneus. No evidence of prior Achilles tendon repair. SOFT TISSUES:No visible soft tissue swelling. EFFUSION:None visible. OTHER: Negative. XR/XR foot LT min 3V IMPRESSION: 1. Stable surgical changes and mild degenerative changes. Electronically authenticated by: PRISCILLA WILKES Date: 05/19/2024 06:07
--- OUTSIDE RECORDS SUMMARY | 2024-05-18 09:44 | XMS_ITS | CCD ---
Author Organization [facility] Care Team Providers Care Lathe Puller Name Role Phone TRABLIZZETH MOURHAF Unavailable Unavailable VERONA, АНДРЕЙ Unavailable Unavailable TRABOULSSI MOURHAF Unavailable Unavailable VERONA, АНДРЕЙ Unavailable Unavailable Britney Betancourt Unavailable Abel Wan Unavailable MD Julio C Jarrett Primary Care Provider VANESSA Wan Attending Provider MD Julio C Jarrett Attending Provider Abel Hurst Unavailable MD Julio C Jarrett Primary Care Provider [phone] MD Julio C Jarrett Attending Provider ДМИТРИЙ RÍOS Attending Unavailable ДМИТРИЙ RÍOS Consulting Unavailable ДМИТРИЙ RÍOS Admitting Unavailable DR JULIO C JARRETT Primary Care Unavailable ARLENE TORRES Consulting Unavailable DR JULIO C JARRETT Primary Care Unavailable ДМИТРИЙ RÍOS Attending Unavailable ДМИТРИЙ RÍOS Consulting Unavailable ДМИТРИЙ RÍOS Admitting Unavailable BJ TORRESA Consulting Unavailable ДМИТРИЙ RÍOS Attending Unavailable ДМИТРИЙ RÍOS Consulting Unavailable ДМИТРИЙ RÍOS Admitting Unavailable DR JULIO C JARRETT Primary Care Unavailable IVANIA WICK Consulting Unavailable SHANA LUKE Consulting Unavailable GABE MCDANIEL Consulting Unavailable ДМИТРИЙ RÍOS Attending Unavailable ДМИТРИЙ RÍOS Admitting Unavailable DR JULIO C JARRETT Primary Care Unavailable AMELIE MARKS Admitting Unavailable AMELIE MARKS Attending Unavailable AMELIE MARKS Consulting Unavailable DR JULIO C JARRETT Primary Care Unavailable JOEY MENEZES Consulting Unavailable PAY ., DR ESTEVES Admitting Unavailable PAY ., DR ESTEVES Consulting Unavailable KOLBY, DR BUNCH Primary Care Unavailable PAY ., DR ESTEVES Attending Unavailable SHELBY ECHAVARRIA Consulting Unavailable GIRMA, DR DELONTE Shannon Admitting Unavailabl e GIRMA, DR DELONTE Shannon Attending Unavailabl e GIRMA, DR DELONTE Shannon Consulting Unavailabl e KOLBY, DR BUNCH Primary Care Unavailable MATHIS, DR WILLIAM Cedeno Consulting Unavailable CHEYENNE, JANNETTE Consulting Unavailable MARKER ., DR MARINO Admitting Unavailable KOLBY, DR BUNCH Primary Care Unavailable MARKER ., DR MARINO Attending Unavailable MARKER ., DR MARINO Consulting Unavailable LING, SUNSHINE Consulting Unavailable ARTURO, DUKE Attending Unavailable MD Julio C Jarrett Primary Care Provider RENAE Ríos Attending Provider [phone] MD Duke Morris Attending Provider NO FAMILY, PHYSICIAN Primary Care Provider Unava ilable RENAE Ríos Attending Provider MD Julio C Jarrett Primary Care Provider [phone] LATRICE Marie Emergency Provider MD Michael Wells Admit Provider MD Michael Wells Attending Provider Gina Wu Other Provider Unavailable DO Isela Snider Other Provider MD Elkin Mcmahon Other Provider DO Ru Pearce Other Provider Erinn, ANP- Roverto Other Provider DO Arturo Sow Other Provider MARK Villanueva Other Provider [phone] JUN Franco-Mary Ramsay Other Provider [phone] MARK Cordon-CMM PROGRAMMER-C Chely Brown Other Provider MD Julio C Jarrett Primary Care Provider [phone] LATRICE Marie Emergency Provider MD Michael Wells Admit Provider MD Michael Wells Attending Provider Gina Wu Other Provider Unavailable DO Islea Snider Other Provider MD Elkin Mcmahon Other Provider [phone] DO Ru Pearce Other Provider Erinn ANP- Roverto Other Provider DO Arturo Sow Other Provider MARK Villanueva Other Provider [phone] VANESSA Franco Other Provider MARK Cordon-CMM PROGRAMMER-Mary Brown Other Provider RENAE Ríos Attending Provider [phone] MD Ayaan Pulido Attending Provider Дмитрий Ríos Attending Unavailable Julio C Jarrett Primary Care Unavailable Дмитрий Ríos Admitting Unavailable Дмитрий Ríos Attending Unavailable Julio C Jarrett Primary Care Unavailable Дмитрий Ríos Admitting Unavailable Дмитрий Ríos Attending Unavailable NO FAMILY, PHYSICIAN Primary Care Unavailable Дмитрий Ríos Admitting Unavailable Michael Wells Admitting Unavailable Michael Wells Attending Unavailable [place], Julio C Primary Care Unavailable Gina Wu Consulting Unavailable Isela Snider Consulting Unavailable Elkin Mcmahon Consulting Unavailable Ru Pearce Consulting Unavailab Roverto Cast Consulting Unavailable Arturo Sow Consulting Unavailable Arlene Villanueva Consulting Unavailable Emily Franco Consulting Unavailable Chely Cordon Consulting Unavailable [place] Julio C Primary Care Unavailable Asaad, Imad Admitting Unavailable August Pulidoad Attending Unavailable NO FAMILY, PHYSICIAN Primary Care Unavailable Duke Morris Admitting Unavailable Duke Morris Attending Unavailable MD Julio C Jarrett Primary Care Provider RENAE Ríos Attending Provider JULIO C JARRETT Attending Unavailable JULIO C JARRETT Referring Unavailable JULIO C JARRETT Attending Unavailable JULIO C JARRETT Referring Unavailable ADRIANO PIERCE Referring Unavailable ROVERTO CARRIZALES Attending Unavailab ROVERTO Watson Attending Unavailab MEL Perez Attending Unavailable ROVERTO CARRIZALES Attending Unavailab JULIO C Bob Referring Unavailable MATTHIEU PHILLIPS Attending Unavailable Unavailable Unavailable Unavailable Allergies Allergy Classification Reported Allergen(s) Allergy Type Date of Onset Reaction(s) Facility (17 sources) Amoxicillin; Translations: [amoxicillin] Drug Allergy 03-15-20 18 [facility] (11 sources) oxyCODONE; Translations: [oxycodone] Drug Allergy 03-15-20 18 Nausea, Nausea, vomiting [facility] (5 sources) Acetaminophen / oxyCODONE Drug Allergy vomiting [employer] Other (9 sources) SOAPS AND PERFUMES Propensity to adverse reactions 01-21-20 Unknown, [facility] (1 source) Acetaminophen / oxyCODONE Drug Allergy 11-20-20 [facility] (4 sources) Acetaminophen Drug Allergy 01-21-20 vomiting [facility] Medications Current Medications Medication Drug Class(es) Dates Sig (Normalized) Sig (Original) ARIPiprazole 5 mg oral tablet (7 sources) Atypical Antipsychotic Start: 04-30-2024 Aripiprazole Active MG PO April 30, 2024 12:00am Start: 01-21-2024 End: 04-30-2024 take 10 mg by mouth once daily Aripiprazole Discontinu ed 10 MG PO Daily January 21, 2024 1:00am April 30, 2024 12:03pm take 1 tablet by sobia th every twenty-four hours Abilify 5 MG 1 tablet Orally Once a day Active aspirin 81 mg delayed release oral tablet (3 sources) Platelet Aggregation Inhibitor, Nonsteroidal Anti-inflammatory Drug Start: 01-22-2024 take 81 mg by mouth once daily Aspirin Active 81 MG PO Daily January 22, 2024 1:00am atorvastatin 80 mg oral tablet (13 sources) HMG-CoA Reductase Inhibitor Start: 01-22-2024 take 80 mg by mouth once daily in the evening Atorvastatin Active 80 MG PO Every evening 90 90 January 22, 2024 1:00am Start: 03-15-2018 End: 01-22-2024 take 20 mg by mouth once daily Atorvastatin Discontinu ed 20 MG PO Daily March 15, 2018 12:00am January 22, 2024 3:20pm 24 hr buPROPion hydrochloride 150 mg extended release oral tablet (2 sources) Aminoketone take 1 tablet by mouth every twenty-four hours Wellbutrin XL 150 MG 1 tablet in the morning Orally Once a day Active clopidogrel 75 mg oral tablet (3 sources) P2Y12 Platelet Inhibitor Start : 01-22 take 1 tablet by mouth once daily Clopidogrel (Plavix) 75 mg tablet Active 75 MG PO Daily January 22, 2024 1:00am ergocalciferol 1.25 mg oral capsule (2 sources) Provitamin D2 Compound Start : 12-11 take 1 capsule by mouth every week Ergocalciferol 1.25 MG (36010 UT) 1 capsule Orally Q week for 90 day(s) Nov, Active ezetimibe 10 mg oral tablet (2 sources) Dietary Cholesterol Absorption Inhibitor Start : 02-24 take 10 mg by mouth once daily Ezetimibe Active 10 MG PO Daily February 25, 2024 12:00am famotidine 20 mg oral tablet (5 sources) Histamine-2 Receptor Antagonist take 1 tablet by mouth every twenty-four hours Pepcid 20 MG 1 tablet at bedtime as needed Orally Once a day Active gabapentin 300 mg oral capsule (15 sources) Anti-epileptic Agent Start : 08-03 take 300 mg by mouth once daily Gabapentin Active 300 MG PO Daily August 03, 2019 12:00am hydroCHLOROthiazide 25 mg oral tablet (15 sources) Thiazide Diuretic Start : 08-03 take 25 mg by mouth once daily Hydrochlorothiazide Active 25 MG PO Daily August 03, 2019 12:00am hydrOXYzine hydrochloride 50 mg oral tablet (4 sources) Antihistamine Start : 01-21 take 50 mg by mouth once daily Hydroxyzine Hcl Active 50 MG PO Daily January 21, 2024 1:00am lidocaine 0.05 mg/mg medicated patch (2 sources) Antiarrhythmic, Amide Local Anesthetic Start : 05-09 Lidoderm 5 % 1-2 patch remove after 12 hours Externally Once a day PRN ONLY for 10 days Apr, Active losartan potassium 25 mg oral tablet (15 sources) Angiotensin 2 Receptor Pati Start : 08-03 take 25 mg by mouth once daily Losartan Active 25 MG PO Daily August 03, 2019 12:00am Magic Mouthwash W/Lidocaine 240 Ml Bottle (1 source) Start : 04-30 take 1 [tsp_us] by mouth every four to six hours as needed Magic Mouthwash W/Lidocaine 240 Ml Bottle Active 5 ML PO .every 4-6 hours 120 April 30, 2024 12:00am Swish and spit 1 tsp every 4-6 hours as needed 24 hr metFORMIN hydrochloride 500 mg extended release oral tablet (5 sources) Biguanide take 1 tablet by mouth once daily at dinner metFORMIN HCl ER 500 MG take 1 tablet by mouth WITH EVENING MEAL once daily for 30 Active predniSONE 20 mg oral tablet (3 sources) Start : 07-22 take 1 tablet by mouth every twelve [...] Orally Once a day for 30 Active Sertraline (5 sources) Serotonin Reuptake Inhibitor Start: 04-30-2024 Sertraline Active MG PO April 30, 2024 12:00am Start: 01-21-2024 End: 04-30-2024 take 50 mg by mouth once daily Sertraline Discontinued 50 MG PO Daily January 21, 2024 1:00am April 30, 2024 12:04pm Completed/Discontinued Medications Medication Drug Class(es) Dates Sig (Normalized) Sig (Original) busPIRone hydrochloride 10 mg oral tablet (12 sources) Start: 03-15-2018 End: 08-03-2019 take 10 mg by mouth once daily Buspirone Discontinued 10 MG PO Daily March 15, 2018 12:00am August 03, 2019 2:28pm take 1 tablet by sobia th every twelve hours busPIRone HCl 5 MG 1 tablet Orally Twice a day for 30 days Active lisinopril 10 mg oral tablet (9 sources) Angiotensin Converting Enzyme Inhibitor Start: 03-15-2018 End: 03-16-2018 take 10 mg by mouth once daily Lisinopril Discontinued 10 MG PO Daily March 15, 2018 12:00am March 16, 2018 11:27am pravastatin sodium 40 mg oral tablet (4 sources) HMG-CoA Reductase Inhibitor Start: 01-21-2024 End: 01-22-2024 take 40 mg by mouth once daily Pravastatin Discontinued 40 MG PO Daily January 21, 2024 1:00am January 22, 2024 3:20pm Triamcinolone (8 sources) Corticosteroid Start: 08-22-2018 Kenalog -40 mg Jul, 40 mg Start: 03-03-2017 Kenalog -40 mg Feb, 40 mg 24 hr venlafaxine 150 mg extended release oral capsule (16 sources) Serotonin and Norepinephrine Reuptake Inhibitor Start: 03-15-2018 End: 02-25-2024 take 1 capsule by mouth once daily Venlafaxine (Effexor Xr) 150 mg Capsule,Extended Release 24hr Discontinued 150 MG PO Daily March 15, 2018 12:00am February 25, 2024 10:00am take 1 tablet by sobia th every twenty-four hours Venlafaxine HCl 75 MG 1 tablet with food Orally Once a day Active Problems Active Problems Problem Classification Problem Date Documented Date Episodic/Chronic Abdominal hernia (5 sources) Hiatal hernia; Translations: [Diaphragmatic hernia without obstruction or gangrene] Episodic Acute cerebrovascular disease (6 sources) Cerebrovascular accident; Translations: [Cerebral infarction, unspecified] Onset: 01-21-2024 01-21-2024 Chronic Anal and rectal conditions (5 sources) Anal [...] Translations: [Prediabetes] Onset: 12-11-2021 Resolved: 06-25-2022 Episodic Diseases of mouth; excluding dental (1 source) Glossitis; Translations: [Glossitis] 04-30-2024 Episodic Disorders of lipid metabolism (12 sources) [...] single episode, unspecified] Chronic Nonspecific chest pain (11 sources) Chest pain, unspecified; Translations: [Chest pain] [...] 12-09-2022 Episodic Other aftercare (1 source) 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; Translations: [PRISON CURRENT USE OF ASPIRIN] Onset: 10-08-2022 Episodic Other aftercare (1 source) Other intermediate (current) drug therapy; Translations: [OTH PRISON CURRENT DRUG THERAPY] Onset: 10-08-2022 Episodic Other [...] Results Test Name Value Interpretation Reference Range [facility] 02-25-2024 L Specimen: Received: 02/25/24 Status: LESLEY Kate Num: [id number] Spec Type: Surgical Subm Dr: Ayaan Pulido MD Tissues: A Colon Biopsy (TRANSV POLYP) Procedures: HE/2, Gross/Micro L4 Age/ Patient Sex Location Account Attending Physician Yarelis Swenson 54/F [id number] Ayaan Pulido MD SPEC NUM: RECD: 02/25/24 STATUS: LESLEY JOHNSON NUM: [id number] TERESA: 02/25/24 DR: Ayaan Pulido MD ENTERED: 02/25/[address]: SPEC TYPE: Surgical DEPT: S ORDERED: HE/2, Gross/Micro L4 ORDERED: HE/2, Gross/Micro L4 Pathological Diagnosis Polyp, Transverse Colon, Biopsy: Tubular Adenoma. - Negative For High Grade Dysplasia And Malignancy. Clinical Information History colon polyps Gross Description Received in formalin labeled with the patient's name, date of and transverse colon polyp are three lópez tissues ranging from 0.5 x 0.3 x 0.2 cm to 1.0 x 0.6 x 0.3 cm. Entirely submitted in one cassette labeled A1. CPT Codes 83962 Specimen: [id number] Received: 02/25/24 Status: LESLEY Kate Num: [id number] Spec Type: Surgical Subm Dr: Ayaan Pulido MD Tissues: A Colon Biopsy (TRANSV POLYP) Procedures: Taina LOMBARDO/Micro L4 Patient: Yarelis Swenson [id number] (Continued) Signed (signature on file) Miguel Angel Vital MD 02/28/24 1757 [facility] echo transthoracicon PENDING SALE TO [facility] echo transthoracic [facility] [place] [place] [address] Echocardiogram Signed Patient: Yarelis Swenson MR#: [id number] : 1970 Acct:[id number] Age/Sex: 53 / F ADM Date: 01/21/24 Loc: Room: [address] [place] [address] Type: ADM IN Attending Dr: Michael Wells MD Ordering Provider: Andrew Cordero DO,DUSTIN Date of Service: 01/21/24 PENDING SALE TO [facility]/PENDING SALE TO [facility] echo transthoracic: Stroke, please do bubble study Copies to: Koki Sow MD, [facility] Andrew Cordero DO,RES BSA: 1.9 m2 BP: 141/82 mmHg HR: 78 Reason For Study: Stroke, please do bubble study History: Hyperlipidemia,Hypertensi on Interpretation Summary Basal septal hypertrophy with no LVOT obstruction at rest Ejection Fraction = 60-65%. The left atrium appears mildly dilated. Atrial septum appears to be intact and there is no evidence of flow across the atrial septum either by colorflow Doppler or by agitated saline. No thrombus, vegetation or mass is seen. Procedure/Quality: A two-dimensional transthoracic echocardiogram with color flow, Doppler and injection of aggitated saline was performed. The study was technically good in quality. Left Ventricle: Basal septal hypertrophy with no LVOT obstruction at rest. Ejection Fraction = 60-65%. Left Atrium: The left atrium appears mildly dilated. The atrial septum appears normal. Atrial septum appears to be intact and there is no evidence of flow across the atrial septum either by colorflow Doppler or by agitated saline. Right Atrium: The right atrium appears normal in size. Right Ventricle: The right ventricular size, thickness and function are normal. Aortic Valve: The aortic valve is mildly calcified. No hemodynamically significant valvular aortic stenosis. Mitral Valve: The mitral valve is mildly sclerotic. Tricuspid Valve: The tricuspid valve is normal in structure. Pulmonic Valve: The pulmonic valve leaflets are thin and pliable; valve motion is normal. Arteries: Mild aortic root dilatation. Pericardium/Pleura: No pericardial effusion seen. There is no pleural effusion. IVC/Hepatic Veins: The IVC is normal in size with an inspiratory collapse of greater then 50%, suggesting normal right atrial pressure. Miscellaneous: No thrombus, vegetation or mass is seen. Measurements with Normals IVSd: 1.6 cm (0.7-1.1 cm)LVIDd: 4.0 cm (3.7-5.4 cm) LVPWd: 0.98 cm (0.7-1.1 cm)LVIDs: 2.2 cm (2.3-3.6 cm) LA dimension: 4.1 cm (2.3-4.0 cm)Ao root diam: 3.1 cm(2.0-3.6 cm) asc Aorta Diam: 3.8 cm(2.1-3.4cm) Doppler with Normals LV V1 max: 96.4 cm/sec (0.7-1.7m/s)MV E max haleigh: 78.0 cm/sec(0.8-1.3m/s) MV A max haleigh: 88.7 cm/sec(0.0-0.0m/s) MV E/A: 0.88 (<1.5) MMode/2D Measurements Calculations RVDd: 3.8 cm FS: 44.6 % Ao root area: LVOT diam: 1.9 cm TAPSE: 2.3 cm EDV(Teich): 7.4 cm2 LVOT area: 2.7 cm2 RV S Haleigh: 68.1 ml 13.2 cm/sec ESV(Teich): 16.0 ml EF(Teich): 76.5 % __ LVLd ap4: 7.2 cm SV(MOD-sp4): LAV(MOD-sp4): LA A2 area: 15.3 cm2 EDV(MOD-sp4): 30.7 ml 36.0 ml 45.3 ml LAV(MOD-sp2): LA A4 area: 16.3 cm2 LVLs ap4: 6.2 cm 34.1 ml LA length (vol): ESV(MOD-sp4): 5.7 cm 14.6 ml LA vol: 36.9 ml EF(MOD-sp4): 67.8 % LA vol index: 19.6 ml/m2 Doppler Measurements Calculations MV dec time: E/E' lat: MV dec slope: Ao V2 max: 0.24 sec 7.0 191.1 cm/sec E/E' med: 321.0 cm/sec2 Ao max P.6 mmHg 14.6 Ao mean P.8 mmHg Ao V2 mean: 120.4 cm/sec Ao V2 VTI: 27.7 cm YOMI(I,D): 2.9 cm2 YOMI(V,D): 1.4 cm2 __ LV V1 max P.7 mmHg LV V1 mean P.8 mmHg LV V1 mean: 61.6 cm/sec LV V1 VTI: 29.3 cm ___ Transcribed By: SCV Performed At: 01/22/24 0928 Signed By: Koki Sow MD, [facility] 01/22/24 1510 Normal [facility] A1C with Estimated Average G george 01-21-2024 Glucose [Mass/Vol] 114 mg/dL Normal [facility] Comment on above: Result Comment: PERF ORMED BY: [facility] [address] [place] [address] PATHOLOGIST [employer] M[employer]ER GONSALO BARKER M.D. Performed By: #### A 1C [facility] #### [facility] [address] HbA1c (Bld) [Mass fraction] 5.6 % Normal 4.3-5.6 [facility] Comment on above: Result Comment: Incr eased risk for diabetes: 5.7 - 6.4 diabetes: >6.4 glycemic control for adults with diabetes: <7.0 Performed By: #### A 1C [facility] #### [facility] [address] [place] [id number] [facility] Activated partial thrombopla stin time (aPTT) in platelet poor plasma by coagulation aOrdered By: Pop Marie on 01-21-2024 aPTT Coag (PPP) [Time] 28.8 s 25.1-36.5 [facility] Comment on above: A hematocrit value g reater than 55% may lead to inaccurate results in coagulation testing. Patients having hematocrit values >55% require a special collection tube for coagulation studies. Please contact the laboratory at [phone] for redraw instructions. Alanine aminotransferase [En zymatic activity/volume] in Serum or PlasmaOrdered By: Pop Marie on 01-21-2024 ALT [Catalytic activity/Vol] 15 U/L 7-52 [facility] Albumin [Mass/volume] in Ser um or Plasma by Bromocresol green (BCG) dye binding methoOrdered By: Pop Marie on 01-21-2024 Albumin BCG dye [Mass/Vol] 4.4 g/dL 3.5-5.7 [facility] Alkaline phosphatase [Enzyma tic activity/volume] in Serum or PlasmaOrdered By: Pop Marie on 01-21-2024 ALP [Catalytic activity/Vol] 61 U/L 34-104 [facility] Aspartate aminotransferase [ Enzymatic activity/volume] in Serum or PlasmaOrdered By: Pop Marie on 01-21-2024 AST [Catalytic activity/Vol] 16 U/L 13-39 [facility] Automated erythrocytes count in urine sediment (number/area)Ordered By: Pop Marie on 01-21-2024 RBC Auto (Urine sed) [#/Area] 3-4 [HPF] 0-4 [facility] Automated leukocytes count i n urine sediment (number/area)Ordered By: Pop Marie on 01-21-2024 WBC Auto (Urine sed) [#/Area] 10-19 [HPF] 0-4 [facility] Automated urine hyaline cast s count (number/volume)Ordered By: Pop Marie on 01-21-2024 Hyaline casts Auto (U) [#/Vol] None seen [LPF] 0-1 [facility] Bacterial blood cultureOrder ed By: Michael Leungescu on 01-21-2024 Bacteria identified Cx Nom (Bld) NO GROWTH 5 DAYS [facility] Basic Metabolic Panelon 12-31 Anion gap [Moles/Vol] 11.0 mmol/L Normal 6.0-15.0 [facility] Comment on above: Performed By: #### A [facility] #### [facility] [address] [place] [address] [place] Calcium [Mass/Vol] 9.5 mg/dL Normal 8.6-10.3 [facility] Comment on above: Performed By: #### A [facility] #### [facility] [address] [place] [address] [place] Chloride [Moles/Vol] 105 mmol/L Normal 98-107 [facility] Comment on above: Performed By: #### A [facility] #### [facility] [address] [place] [address] [place] CO2 [Moles/Vol] 27.3 mmol/L Normal 21.0-31.0 [facility] Comment on above: Performed By: #### A [facility] #### [facility] [address] [place] [id number] [place] Creatinine [Mass/Vol] 0.83 mg/dL Normal 0.60-1.20 [facility] Comment on above: Performed By: #### A [facility] #### [facility] [address] [place] [address] [place] Creatinine Clr Calc Pharmacy 78.64 Normal [facility] Comment on above: Result Comment: PERF ORMED BY: [place] [address] PATHOLOGIST [employer] GONSALO BARKER M.D. Performed By: #### A 1C [facility] eA #### [facility] [address] [place] [address] [place] GFR/1.73 sq M.predicted MDRD (S/P/Bld) [Vol rate/Area] mL/min/{1.73_m2} Normal [facility] Comment on above: Performed By: #### A 1C [facility] eA #### [facility] [address] Glucose [Mass/Vol] 89 mg/dL Normal 70-100 [facility] Comment on above: Result Comment: [place] Glucose Reference Range is dependent on time and content of last meal. Glucose of more than 200 mg/dL in a nonstressed, ambulatory subject supports the diagnosis of Diabetes Mellitus. ADA recommended reference range Performed By: #### A 1C [facility] eA #### [facility] [address] Potassium [Moles/Vol] 3.3 mmol/L Low 3.5-5.1 [facility] Comment on above: Performed By: #### A 1C [facility] eA #### [facility] [address] Sodium [Moles/Vol] 140 mmol/L Normal 136-145 [facility] Comment on above: Performed By: #### A [facility] #### [facility] [address] Urea nitrogen [Mass/Vol] 7 mg/dL Normal 7-25 [facility] Comment on above: Performed By: #### A 1C [facility] eA #### [facility] [address] [place] [address] [place] Basophils Auto (Bld) [#/Vol] Ordered By: Pop Marie on 01-21-2024 Basophils (Bld) [#/Vol] 0.0 10*3/uL 0.0-0.2 [facility] Basophils/100 WBC Auto (Bld) Ordered By: Pop Marie on 01-21-2024 Basophils/100 WBC (Bld) 0.6 % . [facility] Bilirubin Test strip Ql (U)O rdered By: Pop Marie on 01-21-2024 Bilirubin Ql (U) Negative Negative [facility] Bilirubin.direct [Mass/volum e] in Serum or PlasmaOrdered By: Pop Marie on 01-21-2024 Bilirubin.direct [Mass/Vol] 0.10 mg/dL 0.03-0.18 [facility] Bilirubin.total [Mass/volume ] in Serum or PlasmaOrdered By: Pop Marie on 01-21-2024 Bilirubin [Mass/Vol] 0.6 mg/dL 0.3-1.0 [facility] Blood Cultureon 01-21-2024 Bacteria identified Cx Nom (Bld) NO GROWTH 5 DAYS PERFORMED BY: [place] [address] PATHOLOGIST [employer] GONSALO BARKER M.D. Normal [facility] Comment on above: Performed By: #### E SR, CRP, CUBLD, LIPID, HSCRP #### [facility] [address] [place] [address] Performed By: #### A 1C [facility] e[facility] #### [facility] [address] [place] [address] C reactive protein [Mass/vol ume] in Serum or PlasmaOrdered By: Michael Wells on 01-21-2024 CRP [Mass/Vol] < 0.5 mg/dL 0.0-0.5 [facility] C reactive protein [Mass/vol ume] in Serum or Plasma by High sensitivity methodOrdered By: Michael Wells on 01-21-2024 CRP High sensitivity method [Mass/Vol] 1.0 mg/L 0.0-0.9 [facility] Comment on above: Cardiovascular Risk Classification (AHA/CDC)hsCRP < 1.0 mg/l low relative risk for CVDhsCRP 1.0-3.0 mg/l average relative risk for CVDhsCRP > 3.0 mg/l high relative risk for CVDhsCRP > 7.5 mg/l active inflammation*Two results two weeks apart and averaged provide a morestable estimate of hsCRP level.*hsCRP levels > 7.5 mg/l may suggest infection that canlimit the use of this marker for estimation of CVD risk. C-Reactive Proteinon 024 CRP [Mass/Vol] mg/L Normal 0.0-0.5 [facility] Comment on above: Order Comment: YANG Cabrera Performed By: #### E SR, CRP, CUBLD, LIPID, HSCRP #### [facility] [address] [id number] [facility] CT angio neckon 01-21-2024 CT angio neck [facility] [place] [address] [id number] [address] Scan Report Signed Patient: Yarelis Swenson MR#: [id number] 1450 : 1970 Acct:[id number] Age/Sex: 53 / F ADM Date: 01/21/24 Loc: ER Room: Type: PRE ER Attending Dr: Copies to: Pop Marie PA-C Ordering Provider: Pop Marie PA-C Date of Service: 01/21/24 CT/CT angio neck: acute stroke/neuro deficits ([id number]) CT/CT angio head: acute stroke/neuro deficits CT angio head, CT angio neck 01/21/2024 12:01 PM SIGNS AND SYMPTOMS: Right-sided facial droop, numbness, right hand tingling, dizziness CONTRAST: 72 mL of intravenous Isovue-370 TECHNIQUE: Multi-detector CT angiography axial slices of the head were obtained before and during intravenous administration of IV contrast material. Sagittal, coronal, and 3-D reconstructions were performed and viewed on a separate workstation. CT was performed with one or more of the following dose reduction techniques: Automated exposure control, adjustment of the mA and/or kV according to patient size, or use of iterative reconstruction technique. Stenoses were measured using the NASCET criteria. COMPARISON: None. FINDINGS: CTA HEAD: The superior cerebellar arteries, posterior inferior cerebellar arteries, and the basilar artery are within normal limits. There is mild irregular narrowing of the P1 and P2 segments of the posterior cerebral arteries bilaterally which may be atherosclerotic or less likely secondary to vasculitis. Calcified plaque is noted in the intracranial segments of the internal carotid arteries to moderate narrowing of the ophthalmic segment on the right and mild narrowing of the ophthalmic segment on the left. There are normal anterior and middle cerebral arteries. Anterior communicating artery is patent. Posterior communicating arteries are present. The deep venous system and dural venous systems appear to be patent. No bony abnormalities are appreciated. CTA NECK: There is a normal three-vessel arch. The subclavian arteries are within normal limits. The vertebral arteries arise from the subclavian arteries and are normal in course and caliber up to the skull base. The common and internal carotid arteries are within normal limits. Visualized lung parenchyma is clear. Degenerative changes are noted in the cervical spine, greatest at C5-C6. No acute bony abnormalities are identified. The paraspinous soft tissues are within normal limits. CT/CT angio head IMPRESSION: There is mild irregular narrowing of the P1 and P2 segments of the posterior cerebral arteries bilaterally which may be atherosclerotic or less likely secondary to vasculitis. No evidence of focal stenosis, aneurysmal dilatation, dissection or occlusion, otherwise. Impression dictated by: Alicia Tian M.D.01/21/2024 12:04 PM Dictation Location: [place] [address] Transcribed By: [facility] 01/21/24 1204 Dictated By: Alicia Tian II, MD 01/21/24 1156 Signed By: 01/21/24 1204 [facility] [address] head stroke alert wo cono n 01-21-2024 CT head stroke alert [facility] [place] [address] CT Scan Report Signed Patient: Yarelis Swenson MR#: [id number] 1450 : 1970 Acct:[id number] Age/Sex: 53 / F ADM Date: 01/21/24 Loc: ER Room: Type: PRE ER Attending Dr: Copies to: Pop Marie PA-C Ordering Provider: Pop Marie PA-C Date of Service: 01/21/24 CT/CT head stroke alert wo con: acute stroke/neuro deficits CT head stroke alert wo con 01/21/2024 11:38 AM SIGNS AND SYMPTOMS: Right-sided facial droop with numbness, right hand tingling, dizziness TECHNIQUE:Multi-detector CT axial slices of the brain were obtained without IV contrast. CT was performed with one or more of the following dose reduction techniques: Automated exposure control, adjustment of the mA and/or kV according to patient size, or use of iterative reconstruction technique. COMPARISON: None. FINDINGS: There is no shift of the midline structures, acute intracranial bleeding, or mass effect. There are areas of subtle hypoattenuation predominantly affecting the cortical white matter of the parasagittal frontal lobes. These are of uncertain acuity but may represent edema secondary to acute to subacute ischemia. There is a remote lacunar infarct in the right frontal periventricular white matter. The ventricular system is normal in size. The brainstem and the cerebellum are unremarkable. The visualized intraorbital contents, the visualized paranasal sinuses, and the infratemporal soft tissues show no acute abnormality. The osseous structures in the skull base and the calvarium show no abnormality. CT/CT head stroke alert wo con IMPRESSION: There are areas of subtle hypoattenuation predominantly affecting the cortical white matter of the parasagittal frontal lobes. These are of uncertain acuity but may represent edema secondary to acute to subacute ischemia. Further interrogation with MRI is recommended. There is a remote lacunar infarct in the right frontal periventricular white matter. These findings were discussed with Pop Hammonds at 11:52 AM on 01/21/2024. Impression dictated by: Alicia Tian M.D.01/21/2024 11:56 AM Dictation Location: [place] [address] Transcribed By: DEMOND 01/21/24 1156 Dictated By: Alicia Tian II, MD 01/21/24 1151 Signed By: 01/21/24 1156 Normal [facility] Calcium [Mass/volume] in Ser um or PlasmaOrdered By: Pop Marie on 01-21-2024 Calcium [Mass/Vol] 9.5 mg/dL 8.6-10.3 [facility] Carbon dioxide, total [Moles /volume] in Serum or PlasmaOrdered By: Pop Marie on 01-21-2024 CO2 [Moles/Vol] 27.3 mmol/L 21.0-31.0 [facility] Casts typing in urine sedime nt by light microscopyOrdered By: Pop Marie on 01-21-2024 Casts LM Nom (Urine sed) None seen [LPF] None Seen [facility] Chloride [Moles/volume] in S anthony or PlasmaOrdered By: Pop Marie on 01-21-2024 Chloride [Moles/Vol] 105 mmol/L 98-107 [facility] Cholesterol [Mass/volume] in Serum or PlasmaOrdered By: Michael Wells on 01-21-2024 Cholesterol [Mass/Vol] 184 mg/dL 140-200 [facility] Comment on above: Chol less than 200 m g/dl low riskChol 201-239 mg/dl borderline riskChol 240 mg/dl and greater high risk Cholesterol in LDL Calc [Mas s/Vol]Ordered By: Michael Wells on 01-21-2024 Cholesterol in LDL [Mass/Vol] 95 mg/dL 0-100 [facility] Comment on above: LDL ATP III CLASSIFI CATIONLDL less than 100 mg/dL OptimalLDL 100-129 mg/dL Near or above optimalLDL 130-159 mg/dL Borderline highLDL 160-189 mg/dL HighLDL greater than 189 mg/dL Very high Cholesterol in VLDL Calc [Ma ss/Vol]Ordered By: Michael Wells on 01-21-2024 Cholesterol in VLDL [Mass/Vol] 33 mg/dL [facility] Color Auto (U)Ordered By: Junior Marie on 01-21-2024 Color (U) Yellow Yellow [facility] Complete Blood Count Auto Di ffon 01-21-2024 Basophils (Bld) [#/Vol] 0.0 10*3/uL Normal 0.0-0.2 [facility] Comment on above: Result Comment: PERF ORMED BY: [place] [address] PATHOLOGIST [employer] GONSALO BARKER M.D. Performed By: #### A 1C [facility] eA #### [facility] [address] [place] [address] [place] Basophils/100 WBC (Bld) 0.6 % Normal . [facility] Comment on above: Performed By: #### A 1C [facility] eA #### [facility] [address] [place] [address] [place] Eosinophils (Bld) [#/Vol] 0.1 10*3/uL Normal 0.0-0.45 [facility] Comment on above: Performed By: #### A 1C [facility] eA #### [facility] [address] [place] [address] [place] Eosinophils/100 WBC (Bld) 1.4 % Normal . [facility] Comment on above: Performed By: #### A 1C WT eA #### [facility] [address] Erythrocyte distribution width (RBC) [Ratio] 13.9 % Normal 11.9-15.3 [facility] Comment on above: Performed By: #### A 1C WT eA #### [facility] [address] Hematocrit (Bld) [Volume fraction] 39.3 % Normal 34.0-46.4 [facility] Comment on above: Performed By: #### A 1C WT eA #### [facility] [address] Hemoglobin (Bld) [Mass/Vol] 13.4 g/dL Normal 11.8-15.4 [facility] Comment on above: Performed By: #### A 1C WT eA #### [address] Lymphocytes (Bld) [#/Vol] 2.0 10*3/uL Normal 1.00-4.8 [facility] Comment on above: Performed By: #### A 1C WT eA #### [place] [address] [place] Lymphocytes/100 WBC (Bld) 25.9 % Normal . [facility] Comment on above: Performed By: #### A 1C WT eA #### [address] MCH (RBC) [Entitic mass] 29.7 pg Normal 24.7-34.3 [facility] Comment on above: Performed By: #### A 1C WT eA #### [address] MCV (RBC) [Entitic vol] 87.2 fL Normal 80-100 [facility] Comment on above: Performed By: #### A 1C WT eA #### [address] Mean Corpuscular HGB Conc 34.0 g/dL Normal 32.0-35.0 [facility] Comment on above: Performed By: #### A 1C WT eA #### [facility] [address] [id number] [place] Monocytes (Bld) [#/Vol] 0.5 10*3/uL Normal 0.0-0.8 [facility] Comment on above: Performed By: #### A 1C WT eA #### [facility] [address] [id number] [place] Monocytes/100 WBC (Bld) 18.28 % Normal 0.00-20.00 [facility] Comment on above: Performed By: #### A 1C WT eA #### [facility] [address] [place] [address] [place] Monocytes/100 WBC (Bld) 5.8 % Normal . [facility] Comment on above: Performed By: #### A 1C WT eA #### [facility] [address] [place] [address] [place] Neutrophils (Bld) [#/Vol] 5.2 10*3/uL Normal 1.8-7.7 [facility] Comment on above: Performed By: #### A 1C WT eA #### [facility] [address] [place] [address] [place] Neutrophils/100 WBC (Bld) 66.3 % Normal . [facility] Comment on above: Performed By: #### A 1C WT eA #### [facility] [address] [place] [address] [place] NRBC% 0.1 /100{WBC} Normal 0-0.5 [facility] Comment on above: Performed By: #### A 1C WT eA #### [facility] [address] [place] [address] [place] Platelet mean volume (Bld) [Entitic vol] 6.7 fL Normal 6.3-10.7 [facility] Comment on above: Performed By: #### A 1C WT eA #### [facility] [address] [place] [address] [place] Platelets (Bld) [#/Vol] 377 10*3/uL Normal 150-450 [facility] Comment on above: Performed By: #### A 1C WT eA #### [facility] [address] RBC (Bld) [#/Vol] 4.51 10*6/uL Normal 3.60-5.00 [facility] Comment on above: Performed By: #### A 1C [facility] eA #### [facility] [address] WBC (Bld) [#/Vol] 7.8 10*3/uL Normal 3.8-11.6 [facility] Comment on above: Performed By: #### A 1C [facility] eA #### [facility] [address] Creatine Kinaseon 01-21-2024 CK [Catalytic activity/Vol] 60 U/L Normal [facility] Comment on above: Performed By: #### A 1C [facility] eA #### [address] Creatine kinase [Enzymatic a ctivity/volume] in Serum or PlasmaOrdered By: Pop Marie on 01-21-2024 CK [Catalytic activity/Vol] 60 U/L [facility] Creatinine (Bld) [Mass/Vol]O rdered By: Pop Marie on 01-21-2024 Creatinine [Mass/Vol] 0.9 mg/dL 0.6-1.3 [facility] Comment on above: ER/ESD physician is notified/shown all ISTAT results.Critical values may be confirmed by laboratory testing ifdeemed necessary by ER attending doctor. Creatinine [Mass/volume] in Serum or PlasmaOrdered By: Pop Marie on 01-21-2024 Creatinine [Mass/Vol] 0.83 mg/dL 0.60-1.20 [facility] Dipstick and Microscopicon 0 01-21-2024 Appearance (U) Cloudy Critically abnormal Clear [facility] Comment on above: Order Comment: Name Collection Type:: Clean-Voided Midstream Performed By: #### C UU, ADDONUAPLUS #### [address] Bacteria,Urine 2+ High None Seen [facility] Comment on above: Order Comment: Name Collection Type:: Clean-Voided Midstream Performed By: #### C UU, ADDONUAPLUS #### [facility] [address] [place] [address] [place] Bilirubin,Urine Negative Normal Negative [facility] Comment on above: Order Comment: Name Collection Type:: Clean-Voided Midstream Performed By: #### C UU, ADDONUAPLUS #### [facility] [address] [place] [address] [place] Color (U) Yellow Normal Yellow [facility] Comment on above: Order Comment: Name Collection Type:: Clean-Voided Midstream Performed By: #### C UU, ADDONUAPLUS #### [facility] [address] [place] [address] [place] Glucose Ql (U) Normal Normal Normal [facility] Comment on above: Order Comment: Name Collection Type:: Clean-Voided Midstream Performed By: #### C UU, ADDONUAPLUS #### [facility] [address] [place] [address] [place] Hyaline Casts,Urine None Seen Normal 0-1 [facility] Comment on above: Order Comment: Name Collection Type:: Clean-Voided Midstream Performed By: #### C UU, ADDONUAPLUS #### [facility] [address] [place] [address] [place] Ketones Ql (U) Negative Normal Negative [facility] Comment on above: Order Comment: Name Collection Type:: Clean-Voided Midstream Performed By: #### C UU, ADDONUAPLUS #### [facility] [address] [place] [address] [place] Leukocyte esterase Test strip Ql (U) 3+ High Negative [facility] Comment on above: Order Comment: Name Collection Type:: Clean-Voided Midstream Performed By: #### C UU, ADDONUAPLUS #### [facility] [address] [place] [address] [place] Nitrite,Urine Negative Normal Negative [facility] Comment on above: Order Comment: Name Collection Type:: Clean-Voided Midstream Performed By: #### C UU, ADDONUAPLUS #### [place] [address] [place] Occult Blood,Urine Negative Normal Negative [facility] Comment on above: Order Comment: Name Collection Type:: Clean-Voided Midstream Result Comment: PERF ORMED BY: [place] [address] PATHOLOGIST [employer] GONS[employer] BARKER M.D. Performed By: #### C UU, ADDONUAPLUS #### [address] Other Casts,Urine None Seen Normal None Seen [facility] Comment on above: Order Comment: Name Collection Type:: Clean-Voided Midstream Result Comment: PERF ORMED BY: [place] [address] PATHOLOGIST [employer] GONSAL[employer] BARKER M.D. Performed By: #### C UU, ADDONUAPLUS #### [address] pH (U) 7.5 [pH] Normal 5.0-9.0 [facility] Comment on above: Order Comment: Name Collection Type:: Clean-Voided Midstream Performed By: #### C UU, ADDONUAPLUS #### [place] [address] [place] Protein,Urine Negative Normal Negative [facility] Comment on above: Order Comment: Name Collection Type:: Clean-Voided Midstream Performed By: #### C UU, ADDONUAPLUS #### [place] [address] [place] RBC,Urine 3-4 Normal 0-4 [facility] Comment on above: Order Comment: Name Collection Type:: Clean-Voided Midstream Performed By: #### C UU, ADDONUAPLUS #### [address] Specificy [place],Urine 1.050 High 1.001-1.03 0 [facility] Comment on above: Order Comment: Name Collection Type:: Clean-Voided Midstream Performed By: #### C UU, ADDONUAPLUS #### [facility] [address] [place] [address] Squamous Epithelial Cell,Urine Innumerable High 0-2 [facility] Comment on above: Order Comment: Name Collection Type:: Clean-Voided Midstream Performed By: #### C UU, ADDONUAPLUS #### [facility] [address] [place] [address] Urobilinogen,Urine Normal Normal Normal [facility] Comment on above: Order Comment: Name Collection Type:: Clean-Voided Midstream Performed By: #### C UU, ADDONUAPLUS #### [facility] [address] [place] [address] WBC,Urine 10-19 High 0-4 [facility] Comment on above: Order Comment: Name Collection Type:: Clean-Voided Midstream Performed By: #### C UU, ADDONUAPLUS #### [address] ECG 12 lead ECGon 01-21-2024 ECG 12 lead ECG [facility] [place] [address] [place] [address] Electrocardiograph Report Signed Patient: Yarelis Swenson MR#: [id number] 1450 : 1970 Acct:[id number] Age/Sex: 53 / F ADM Date: 01/21/24 Loc: Room: [address] [place] [address] Type: ADM IN Attending Dr: Michael Wells MD Ordering Provider: Pop Marie PA-C Date of Service: 01/21/24 ECG/ECG 12 lead ECG: Neuro Symptoms/Deficit Copies to: Test Reason : Blood Pressure : / mmHG Vent. Rate : 073 BPM Atrial Rate : 073 BPM P-R Int : 168 ms QRS Dur : 086 ms QT Int : 426 ms P-R-T Axes : 020 -26 035 degrees QTc Int : 469 ms Normal sinus rhythm Minimal voltage criteria for LVH, may be normal variant Borderline ECG When compared with ECG of 15-MAR-2018 19:13, No significant change was found Confirmed by SABA MANDEL DO ([id number]) on 01/21/2024 2:49:59 PM Referred By: Electronically Signed By:SABA MANDEL DO Transcribed By: MUS Signed By Saba Mandel DO 1450 Normal [facility] Eosinophils Auto (Bld) [#/Vo l]Ordered By: Pop Marie on 01-21-2024 Eosinophils (Bld) [#/Vol] 0.1 10*3/uL 0.0-0.45 [facility] Eosinophils/100 WBC Auto (Bl d)Ordered By: Pop Marie on 01-21-2024 Eosinophils/100 WBC (Bld) 1.4 % . [facility] Erythrocyte Sedimentation Ra genny 01-21-2024 ESR (Bld) [Velocity] 13 mm/h Normal 0-29 [facility] Comment on above: Result Comment: PERF ORMED BY: [facility] [address] [place] [address] PATHOLOGIST [employer] GONS[employer] BARKER M.D. Performed By: #### E SR, CRP, CUBLD, LIPID, HSCRP #### [facility] [address] Erythrocyte distribution wid th Auto (RBC) [Ratio]Ordered By: Pop Marie on 01-21-2024 Erythrocyte distribution width (RBC) [Ratio] 13.9 % 11.9-15.3 [facility] Erythrocyte sedimentation ra te by Photometric methodOrdered By: Michael Wells on 01-21-2024 ESR Photometric method (Bld) [Velocity] 13 mm/hr 0-29 [facility] Ethanol [Mass/volume] in Ser um or PlasmaOrdered By: Pop Marie on 01-21-2024 Ethanol [Mass/Vol] mg/dL [facility] Ethanol [Mass/Vol] TNP [facility] Comment on above: Test not performed Ethyl Alcohol Profileon 12-31 Ethanol [Mass/Vol] mg/dL Normal [facility] Comment on above: Performed By: #### A 1C WTH eA #### [facility] [address] Percent Ethanol Not performed Normal [facility] Comment on above: Result Comment: PERF ORMED BY: [place] [address] PATHOLOGIST [employer] G[employer] BARKER M.D. Performed By: #### A 1C [facility] eA #### [address] Globulin Calc (S) [Mass/Vol] Ordered By: Pop Marie on 01-21-2024 Globulin (S) [Mass/Vol] 2.9 g/dL [facility] Glucose Glucometer (BldC) [M ass/Vol]Ordered By: ORION BOYER on 01-21-2024 Glucose [Mass/Vol] 103 mg/dL [facility] Comment on above: Random Glucose Refer ence Range is dependent on time and content of last meal. Glucose of more than 200 mg/dL in a nonstressed, ambulatory subject supports the diagnosis of Diabetes Mellitus. Glucose Poct Glucometerson 0 01-21-2024 Commemt1 Glu2: Cleaned Meter Normal [facility] Comment on above: Result Comment: PERF ORMED BY: [place] [address] PATHOLOGIST [employer] GONS[employer] BARKER M.D. Performed By: #### A 1C [facility] eA #### [address] Glucose [Mass/Vol] 103 mg/dL Normal [facility] Comment on above: Result Comment: [place] om Glucose Reference Range is dependent on time and content of last meal. Glucose of more than 200 mg/dL in a nonstressed, ambulatory subject supports the diagnosis of Diabetes Mellitus. Performed By: #### A 1C [facility] eA #### [place] [id number] [facility] Glucose [Mass/volume] in Ser um or PlasmaOrdered By: Pop Marie on 01-21-2024 Glucose [Mass/Vol] 89 mg/dL 70-100 [facility] Comment on above: ADA recommended refe rence rangeRandom Glucose Reference Range is dependent on time and content of last meal. Glucose of more than 200 mg/dL in a nonstressed, ambulatory subject supports the diagnosis of Diabetes Mellitus. Glucose mean value [Mass/vol ume] in Blood Estimated from glycated hemoglobinOrdered By: Michael Wells on 01-21-2024 Average glucose Estimated from glycated hemoglobin (Bld) [Mass/Vol] 114 mg/dL [facility] Hematocrit Auto (Bld) [Volum e fraction]Ordered By: Pop Marie on 01-21-2024 Hematocrit (Bld) [Volume fraction] 39.3 % 34.0-46.4 [facility] Hemoglobin A1c percentageOrd ered By: Michael Wells on 01-21-2024 HbA1c (Bld) [Mass fraction] 5.6 % 4.3-5.6 [facility] Comment on above: Increased risk for d iabetes: 5.7 - 6.4diabetes: >6.4glycemic control for adults with diabetes: <7.0 Hemoglobin [Mass/volume] in BloodOrdered By: Pop Marie on 01-21-2024 Hemoglobin (Bld) [Mass/Vol] 13.4 g/dL 11.8-15.4 [facility] Hepatic Panelon 01-21-2024 Albumin [Mass/Vol] 4.4 g/dL Normal 3.5-5.7 [facility] Comment on above: Performed By: #### A 1C [facility] eA #### [facility] [address] [place] [address] [place] Albumin/Globulin [Mass ratio] 1.5 {ratio} Normal [facility] Comment on above: Performed By: #### A 1C WT eA #### [facility] [address] [place] [address] [place] ALP [Catalytic activity/Vol] 61 U/L Normal 34-104 [facility] Comment on above: Performed By: #### A 1C [facility] eA #### [facility] [address] [place] [address] [place] ALT [Catalytic activity/Vol] 15 U/L Normal 7-52 [facility] Comment on above: Performed By: #### A 1C WT eA #### [facility] [address] [place] [id number] [facility] AST [Catalytic activity/Vol] 16 U/L Normal 13-39 [facility] Comment on above: Performed By: #### A 1C [facility] [facility] eA #### [facility] [address] [id number] [facility] Bilirubin [Mass/Vol] 0.6 mg/dL Normal 0.3-1.0 [facility] Comment on above: Performed By: #### A 1C [facility] eA #### [facility] [address] Bilirubin,Indirect 0.5 mg/dL Normal [facility] Comment on above: Performed By: #### A 1C [facility] eA #### [facility] [address] Bilirubin.indirect [Mass/Vol] 0.10 mg/dL Normal 0.03-0.18 [facility] Comment on above: Performed By: #### A 1C [facility] eA #### [facility] [address] Globulin (S) [Mass/Vol] 2.9 g/dL Normal [facility] Comment on above: Performed By: #### A 1C [facility] eA #### [facility] [address] [id number] [facility] Protein [Mass/Vol] 7.3 g/dL Normal 6.4-8.9 [facility] Comment on above: Performed By: #### A 1C [facility] eA #### [facility] [address] [id number] [place] High Sensitive CRPon 01-21-2 024 High Sensitive CRP 1.0 mg/L High 0.0-0.9 [facility] Comment on above: Result Comment: Card iovascular Risk Classification (AHA/CDC) hsCRP < 1.0 mg/l low relative risk for CVD hsCRP 1.0-3.0 mg/l average relative risk for CVD hsCRP > 3.0 mg/l high relative risk for CVD hsCRP > 7.5 mg/l active inflammation* Two results two weeks apart and averaged provide a more stable estimate of hsCRP level. *hsCRP levels > 7.5 mg/l may suggest infection that can limit the use of this marker for estimation of CVD risk. PERFORMED BY: [place] [address] PATHOLOGIST [employer] GONSALO BARKER M.D. Performed By: #### E SR, CRP, CUBLD, LIPID, HSCRP #### [facility] [address] [place] [id number] [facility] INR in Platelet poor plasma by Coagulation assayOrdered By: Pop Marie on 01-21-2024 INR Coag (PPP) [Relative time] 1.0 {INR} [facility] Comment on above: INR Therapeutic Rang e A) Pre- and Peroperative OAT started two weeks before surgery. NOT HIP SURGERY: 1.5 - 2.5 HIP SURGERY: 2 - 3B) Primary and secondary prevention of venous THROMBOSIS: 2 - 3C) Active venous thrombosis, pulmonary embolismand prevention of recurrent venous thrombosis: 2 - 3D) Prevention of arterial thromboembolismincluding patients with mechanical heart valves: 3 - 4.5 ISTAT XRay CREon 01-21-2024 Creatinine [Mass/Vol] 0.9 mg/dL Normal 0.6-1.3 [facility] Comment on above: Result Comment: ER/E SD physician is notified/shown all ISTAT results. Critical values may be confirmed by laboratory testing if deemed necessary by ER attending doctor. Performed By: #### T SH3 #### [address] ISTAT GFR > 60.0 Normal [facility] Comment on above: Result Comment: PERF ORMED BY: [place] [address] PATHOLOGIST [employer] GONSALO BARKER M.D. Performed By: #### T SH3 #### [address] [address] [facility] Ketones Auto test strip (U) [Mass/Vol]Ordered By: Pop Marie on 01-21-2024 Ketones (U) [Mass/Vol] Negative Negative [facility] Leukocytes [#/volume] correc ekaterina for nucleated erythrocytes in Blood by Automated counOrdered By: Pop Marie on 01-21-2024 WBC corrected for nucl RBC Auto (Bld) [#/Vol] 7.8 10*3/uL 3.8-11.6 [facility] Lipid Panelon 01-21-2024 Cholesterol [Mass/Vol] 184 mg/dL Normal 140-200 [facility] Comment on above: Order Comment: FASTI NG Y Result Comment: Chol less than 200 mg/dl low risk Chol 201-239 mg/dl borderline risk Chol 240 mg/dl and greater high risk Performed By: #### E SR, CRP, CUBLD, LIPID, HSCRP #### [facility] [address] Cholesterol in HDL [Mass/Vol] 55 mg/dL Normal 23-92 [facility] Comment on above: Order Comment: FASTI NG Y Result Comment: HDL CHOL ATP-III CLASSIFICATION Cardiovascular Risk HDL > or equal to 60 mg/dL LOW HDL < 40 mg/dL HIGH Performed By: #### E SR, CRP, CUBLD, LIPID, HSCRP #### [facility] [address] Cholesterol.total/Chol esterol in HDL [Mass ratio] 3.3 {ratio} Normal <5.0 [facility] Comment on above: Order Comment: FASTI NG Y Result Comment: PERF ORMED BY: [place] [address] PATHOLOGIST [employer] GONSALO BARKER M.D. Performed By: #### E SR, CRP, CUBLD, LIPID, HSCRP #### [facility] [address] LDL Cholesterol,Calculated 95 mg/dL Normal 0-100 [facility] Comment on above: Order Comment: FASTI NG Y Result Comment: LDL ATP III CLASSIFICATION LDL less than 100 mg/dL Optimal LDL 100-129 mg/dL Near or above optimal LDL 130-159 mg/dL Borderline high LDL 160-189 mg/dL High LDL greater than 189 mg/dL Very high Performed By: #### E SR, CRP, CUBLD, LIPID, HSCRP #### [facility] [address] [place] [address] [place] Triglyceride w/Reflex 169 mg/dL High 0-149 [facility] Comment on above: Order Comment: YANG ESPINAL Y Result Comment: TRIG ATP III CLASSIFICATION TRIG less than 150 mg/dL Normal TRIG 150-199 mg/dL Borderline high TRIG 200-500 mg/dL High TRIG greater than 500 mg/dL Very high Standard traceable to the Center for Disease Conrtrol and Prevention (CDC) test method. Performed By: #### E SR, CRP, CUBLD, LIPID, HSCRP #### [facility] [address] VLDL CHOLESTEROL 33 mg/dL Normal [facility] Comment on above: Order Comment: YANG ESPINAL Y Performed By: #### E SR, CRP, CUBLD, LIPID, HSCRP #### [facility] [address] Lymphocytes Auto (Bld) [#/Vo l]Ordered By: Pop Marie on 01-21-2024 Lymphocytes (Bld) [#/Vol] 2.0 10*3/uL 1.00-4.8 [facility] Lymphocytes/100 WBC Auto (Bl d)Ordered By: Pop Marie on 01-21-2024 Lymphocytes/100 WBC (Bld) 25.9 % . [facility] MCH Auto (RBC) [Entitic mass ]Ordered By: Pop Marie on 01-21-2024 MCH (RBC) [Entitic mass] 29.7 pg 24.7-34.3 [facility] MCHC Auto (RBC) [Mass/Vol]Or dered By: Pop Marie on 01-21-2024 MCHC (RBC) [Mass/Vol] 34.0 g/dL 32.0-35.0 [facility] MCV Auto (RBC) [Entitic vol] Ordered By: Pop Marie on 01-21-2024 MCV (RBC) [Entitic vol] 87.2 fL 80-100 [facility] MR head/brain wo conon 01-21 MR head/brain wo con [facility] [address] [place] [address] MRI Report Signed Patient: Yarelis Swenson MR#: [id number] : 1970 Acct:[id number] Age/Sex: 53 / F ADM Date: 01/21/24 Loc: Room: [address] [place] [address] Type: ADM IN Attending Dr: Michael Wells MD Copies to: Michael Wells MD Ordering Provider: Michael Wells MD Date of Service: 01/21/24 MR/MR head/brain wo con: stroke MRI the Brain without contrast TECHNIQUE: Multiplanar T1 and T2-weighted imaging of the brain. HISTORY: Right facial droop. Right hand tingling. COMPARISON: none VENTRICLES: Unremarkable BRAIN VOLUME: Adequate volume of brain parenchyma identified. BRAIN PARENCHYMAL SIGNAL INTENSITY: Scattered foci of increased T2/FLAIR signal intensity of the brain parenchyma is consistent with chronic small vessel ischemic changes. BLEED: None MASS EFFECT: No mass effect DIFFUSION RESTRICTION: None GRADIENT ECHO PARENCHYMAL SIGNAL LOSS: None MIDBRAIN: The midbrain structures are unremarkable. ALESIA: Unremarkable MEDULLA: Unremarkable INTERNAL AUDITORY CANALS: Unremarkable SINUSES: Unremarkable ORBITS: Grossly unremarkable MASTOIDS: Unremarkable ENHANCEMENT: No contrast enhancement given MR/MR head/brain wo con IMPRESSION: No acute intracranial process. Findings consistent with chronic small vessel ischemic changes. Impression dictated by: Danielito Haro M.D.01/21/2024 5:57 PM Dictation Location: [place] [address] Transcribed By: [facility] 01/21/241756 Dictated By: Danielito Haro DO 01/21/241753 Signed By: 01/21/241756 Normal [facility] Monocyte distribution width [Entitic volume] in Blood by AutomatedOrdered By: Pop Marie on 01-21-2024 Monocyte distribution width Auto (Bld) [Entitic vol] 18.28 % 0.00-20.00 [facility] Monocytes Auto (Bld) [#/Vol] Ordered By: Pop Marie on 01-21-2024 Monocytes (Bld) [#/Vol] 0.5 10*3/uL 0.0-0.8 [facility] Monocytes/100 WBC Auto (Bld) Ordered By: Pop Marie on 01-21-2024 Monocytes/100 WBC (Bld) 5.8 % . [facility] Neutrophils Auto (Bld) [#/Vo l]Ordered By: Pop Marie on 01-21-2024 Neutrophils (Bld) [#/Vol] 5.2 10*3/uL 1.8-7.7 [facility] Neutrophils/100 WBC Auto (Bl d)Ordered By: Pop Marie on 01-21-2024 Neutrophils/100 WBC (Bld) 66.3 % . [facility] Nitrite Test strip Ql (U)Ord ered By: Pop Marie on 01-21-2024 Nitrite Ql (U) Negative Negative [facility] No Panel InformationOrdered By: Pop Marie on 01-21-2024 Bedside Estimated GFR (eGFR) > 60.0 [facility] Estimated GFR (CKD-EPI) > 60.0 mL/Min [facility] Creatinine Clearance (Chem 78.64 [facility] No Panel InformationOrdered By: PROVIDER TEMP on 01-21-2024 Bedside Glucose Comment Glu2: cleaned meter [facility] Nucleated erythrocytes [Pres ence] in Blood by Automated countOrdered By: Pop Marie on 01-21-2024 Nucleated RBC Auto Ql (Bld) 0.1 /100{WBC} 0-0.5 [facility] Partial Thromboplastin Timeo n 01-21-2024 aPTT Coag (Bld) [Time] 28.8 s Normal 25.1-36.5 [facility] Comment on above: Result Comment: A he matocrit value greater than 55% may lead to inaccurate results in coagulation testing. Patients having hematocrit values >55% require a special collection tube for coagulation studies. Please contact the laboratory at [phone] for redraw instructions. PERFORMED BY: [place] [id number] PATHOLOGIST [employer] GONSALO BARKER M.D. Performed By: #### A 1C [facility] #### [address] Platelet mean volume Auto (B ld) [Entitic vol]Ordered By: Pop Marie on 01-21-2024 Platelet mean volume (Bld) [Entitic vol] 6.7 fL 6.3-10.7 [facility] Platelets Auto (Bld) [#/Vol] Ordered By: Pop Marie on 01-21-2024 Platelets (Bld) [#/Vol] 377 10*3/uL 150-450 [facility] Potassium [Moles/volume] in Serum or PlasmaOrdered By: Pop Marie on 01-21-2024 Potassium [Moles/Vol] 3.3 mmol/L 3.5-5.1 [facility] Protein Auto test strip (U) [Mass/Vol]Ordered By: Pop Marie on 01-21-2024 Protein (U) [Mass/Vol] Negative Negative [facility] Protein [Mass/volume] in Ser um or PlasmaOrdered By: Pop Marie on 01-21-2024 Protein [Mass/Vol] 7.3 g/dL 6.4-8.9 [facility] Prothrombin Time INRon 01-21 INR Coag (PPP) [Relative time] 1.0 {INR} Normal [facility] Comment on above: Result Comment: INR Therapeutic Range A) Pre- and Peroperative OAT started two weeks before surgery. NOT HIP SURGERY: 1.5 - 2.5 HIP SURGERY: 2 - 3 B) Primary and secondary prevention of venous THROMBOSIS: 2 - 3 C) Active venous thrombosis, pulmonary embolism and prevention of recurrent venous thrombosis: 2 - 3 D) Prevention of arterial thromboembolism including patients with mechanical heart valves: 3 - 4.5 Performed By: #### A 1C [facility] eA #### [facility] [address] PT Coag (PPP) [Time] 11.2 s Normal 9.0-12.9 [facility] Comment on above: Result Comment: A he matocrit value greater than 55% may lead to inaccurate results in coagulation testing. Patients having hematocrit values >55% require a special collection tube for coagulation studies. Please contact the laboratory at [phone] for redraw instructions. Performed By: #### A 1C [facility] eA #### [facility] [address] [phone] [facility] Prothrombin time (PT)Ordered By: Pop Marie on 01-21-2024 PT Coag (PPP) [Time] 11.2 s 9.0-12.9 [facility] Comment on above: A hematocrit value g reater than 55% may lead to inaccurate results in coagulation testing. Patients having hematocrit values >55% require a special collection tube for coagulation studies. Please contact the laboratory at [phone] for redraw instructions. RBC Auto (Bld) [#/Vol]Ordere d By: Pop Marie on 01-21-2024 RBC (Bld) [#/Vol] 4.51 10*6/uL 3.60-5.00 [facility] Serum or plasma albumin/glob ulin mass ratioOrdered By: Pop Marie on 01-21-2024 Albumin/Globulin [Mass ratio] 1.5 {ratio} [facility] Serum or plasma anion gap de terminationOrdered By: Pop Marie on 01-21-2024 Anion gap [Moles/Vol] 11.0 mmol/L 6.0-15.0 [facility] Serum or plasma high density lipoprotein (HDL) cholesterol measurementOrdered By: Michael Wells on 01-21-2024 Cholesterol in HDL [Mass/Vol] 55 mg/dL [facility] Comment on above: HDL CHOL ATP-III CLA SSIFICATION Cardiovascular RiskHDL > or equal to 60 mg/dL LOWHDL < 40 mg/dL HIGH Serum or plasma non-glucuron idated bilirubin measurement (mass/volume)Ordered By: Pop Marie on 01-21-2024 Bilirubin.indirect [Mass/Vol] 0.5 mg/dL [facility] Serum or plasma total choles terol/high density lipoprotein (HDL) cholesterol mass ratOrdered By: Michael Wells on 01-21-2024 Cholesterol.total/Chol esterol in HDL [Mass ratio] 3.3 {ratio} <5.0 [facility] Sodium [Moles/volume] in Ser um or PlasmaOrdered By: Pop Marie on 01-21-2024 Sodium [Moles/Vol] 140 mmol/L 136-145 [facility] Specific gravity Auto test s trip (U) [Rel density]Ordered By: Pop Marie on 01-21-2024 Specific gravity (U) [Rel density] 1.050 1.001-1.03 0 [facility] Squamous epithelial cells de tection in urine sediment by light microscopyOrdered By: Pop Marie on 01-21-2024 Epithelial cells.squamous LM Ql (Urine sed) Innumerable [HPF] 0-2 [facility] Thyroid Stimulating Hormoneo n 01-21-2024 TSH Qn 1.10 m[IU]/L Normal 0.45-5.33 [facility] Comment on above: Order Comment: Lillian nt addon Result Comment: PERF ORMED BY: [place] [address] PATHOLOGIST [employer] GONSALO BARKER M.D. Performed By: #### T SH3 #### [facility] [address] [place] [address] Thyrotropin [Units/volume] i n Serum or PlasmaOrdered By: Michael Wells on 01-21-2024 TSH Qn 1.10 m[IU]/L 0.45-5.33 [facility] Triglyceride [Mass/volume] i n Serum or PlasmaOrdered By: Michael Wells on 01-21-2024 Triglyceride [Mass/Vol] 169 mg/dL 0-149 [facility] Comment on above: TRIG ATP III CLASSIF ICATIONTRIG less than 150 mg/dL NormalTRIG 150-199 mg/dL Borderline highTRIG 200-500 mg/dL High TRIG greater than 500 mg/dL Very highStandard traceable to the Center for Disease Conrtrol and Prevention (CDC) test method. Troponin I High Sensitivityo n 01-21-2024 Troponin I High Sensitivity 4.2 pg/mL Normal 0.0-15.0 [facility] Comment on above: Result Comment: PERF ORMED BY: [place] [address] PATHOLOGIST [employer] GONSALO BARKER M.D. Performed By: #### T SH3 #### [facility] [address] [place], [place] [id number] [facility] Troponin I.cardiac [Mass/vol ume] in Serum or Plasma by Detection limit <= 0.01 ng/Ordered By: Pop Marie on 01-21-2024 Troponin I.cardiac DL <= 0.01 ng/mL [Mass/Vol] 4.2 pg/mL 0.0-15.0 [facility] Urea nitrogen [Mass/volume] in Serum or PlasmaOrdered By: Pop Marie on 01-21-2024 Urea nitrogen [Mass/Vol] 7 mg/dL 7-25 [facility] Urine Cultureon 01-21-2024 Bacteria identified Cx Nom (U) >100,000 colonies/ml mixed bacterial skin contaminants 2 Days PERFORMED BY: [facility] [address] [place] [address] PATHOLOGIST [employer] GONSALO BARKER M.D. [facility] Comment on above: Performed By: #### C UU, ADDONUAPLUS #### [address] Urine bacteria detection by automated methodOrdered By: Pop Marie on 01-21-2024 Bacteria Auto Ql (U) 2+ None Seen [facility] Urine clarity by refractomet ry automatedOrdered By: Pop Marie on 01-21-2024 Clarity Refractometry automated (U) Cloudy Clear [facility] Urine culture routineOrdered By: Pop Marie on 01-21-2024 Bacteria identified Cx Nom (U) 2 Days [facility] Urine glucose measurement by automated test strip (mass/volume)Ordered By: Pop Marie on 01-21-2024 Glucose Auto test strip (U) [Mass/Vol] Normal mg/dL Normal [facility] Urine hemoglobin detection b y automated test stripOrdered By: Pop Marie on 01-21-2024 Hemoglobin Auto test strip Ql (U) Negative Negative [facility] Urine leukocyte esterase det ection by automated test stripOrdered By: Pop Marie on 01-21-2024 Leukocyte esterase Auto test strip Ql (U) 3+ Negative [facility] Urobilinogen Auto test strip (U) [Mass/Vol]Ordered By: Pop Marie on 01-21-2024 Urobilinogen (U) [Mass/Vol] Normal mg/dL Normal [facility] WBC Auto (Bld) [#/Vol]Ordere d By: Pop Marie on 01-21-2024 WBC (Bld) [#/Vol] 7.8 10*3/uL 3.8-11.6 [facility] XR chest 1V portableon 01-21 XR chest 1V portable [facility] [address] [place] [address] XRay Report Signed Patient: Yarelis Swenson MR#: [id number] 1450 : 1970 Acct:[id number] Age/Sex: 53 / F ADM Date: 01/21/24 Loc: ER Room: Type: [facility] ER Attending Dr: Copies to: Pop Marie PA-C Ordering Provider: Pop Marie PA-C Date of Service: 01/21/24 XR/XR chest 1V portable: Neuro Symptoms/Deficit Plain film chest Single view HISTORY: Stroke alert. COMPARISON: None FINDINGS: SUPPORT DEVICES: None POSTSURGICAL CHANGES: None HEART: Within normal limits PULMONARY CHRIS: Within normal limits MEDIASTINUM: Unremarkable LUNGS AND PLEURA: No acute lung process, pleural effusion or pneumothorax identified. BONY STRUCTURES: Intact ADDITIONAL FINDINGS None XR/XR chest 1V portable IMPRESSION: No acute process. Impression dictated by: Danielito Haro M.D.01/21/2024 12:19 PM Dictation Location: [place] [address] Transcribed By: [facility] 01/21/24 121 Dictated By: Danielito Haro DO 01/21/241218 Signed By: 01/21/24 1219 Normal [facility] pH Auto test strip (U)Ordere d By: Pop Marie on 01-21-2024 pH (U) 7.5 [pH] 5.0-9.0 [facility] BI MAMMOGRAM SCREENING TOMOS YNTHESIS BILATERALon 10-05-2023 [...] IS VERY IMPORTANT TO YOUR HEALTH. THE [employer] GUIDELINES RECOMMEND THAT WOMEN 40 [...] on 07-25-2023 Vancomycin trough [Mass/Vol] 11.0 ug/mL 10.0-20.0 [facility] Comment on above: Last dose: - Vancomycin,Troughon 07-25-20 23 Vancomycin,Trough 11.0 ug/mL Normal 10.0-20.0 [facility] Comment on above: Order Comment: FOR C RITICAL RESULTS CALL TO [facility] [id number] EXT [id number] Result Comment: Last dose: - PERFORMED BY: [place] [address] PATHOLOGIST [employer] M[employer]ER GONSALO BARKER M.D. Performed By: #### A 1C [facility] #### [address] Physician Orderon 07-23-2023 Physician Order [id number]:1 27 Normal [facility] Vanco Troughon 07-23-2023 VANCOMYCIN 7 microgram/mL Low 10-20 [facility] Comment on above: Performed By: #### 2 [id number] #### [facility] [address] [place] [address] PROF CHEM 8 (BAS METB)on Anion gap [Moles/Vol] 14.5 mmol/L Normal Th e [facility] Comment on above: Performed By: #### B MP #### [facility] [address] [address] [address] Dimitri Veliz Calcium [Mass/Vol] 9.0 mg/dL Normal 8.5-10.1 [facility] Comment on above: Performed By: #### B MP #### [facility] [address] [address] [address] Dimitri Veliz Chloride [Moles/Vol] 101 mmol/L Normal 98-107 [facility] Comment on above: Performed By: #### B MP #### [facility] [address] [address] [address] Dimitri Veliz CO2 [Moles/Vol] 31.4 mmol/L Normal 21.0-32.0 [facility] Comment on above: Performed By: #### B MP #### [facility] [address] [place] [address] Dr. Dimitri Veliz Creatinine [Mass/Vol] 0.82 mg/dL Normal 0.55-1.02 [facility] Comment on above: Performed By: #### B MP #### [facility] [address] [place] [address] Dr. Dimitri Veliz EGFR-AF RUSSIAN >60 Normal >=60 [facility] Comment on above: Performed By: #### B MP #### [facility] [address] [address] [address] Dimitri Veliz EGFR-NON AF RUSSIAN >60 Normal >=60 [facility] Comment on above: Performed By: #### B MP #### [facility] [address] [place] [address] [address] Dimitri Veliz Glucose [Mass/Vol] 96 mg/dL Normal 74-106 [facility] Comment on above: Performed By: #### B MP #### [facility] [address] [place] [address] Dr. Dimitri Veliz Potassium [Moles/Vol] 3.9 mmol/L Normal 3.5-5.1 [facility] Comment on above: Performed By: #### B MP #### [facility] [address] [address] [address] Dimitri Veliz Sodium [Moles/Vol] 143 mmol/L Normal 136-145 [facility] Comment on above: Performed By: #### B MP #### [facility] [id number] Diimtri Veliz Urea nitrogen [Mass/Vol] 10.0 mg/dL Normal 7.0-18.0 [facility] Comment on above: Performed By: #### B MP #### [facility] [address] [address] [address] Dimitri Veliz Urea nitrogen/Creatinine [Mass ratio] 12.2 mg/mg Normal [facility] Comment on above: Performed By: #### B MP #### [facility] [address] [place] [address] [address] Dimitri Veliz MRI ANKLE LT WO [...] JOEY MENEZES Date: 2023-02-17 07:43 Normal [facility] POINT OF CARE GLUCOSEon 11-29 Glucose [Mass/Vol] 99 mg/dL Normal 74-106 [facility] Comment on above: Performed By: #### P OCGLUC #### [facility] [address] [address] [address] Dimitri Veliz Glucose [Mass/Vol] 96 mg/dL Normal 74-106 [facility] Comment on above: Performed By: #### P OCGLUC ####[facility] [employer] [place], [place] [address]AtDr. Dimitri Veliz Covid-19 PCR (CVDTB)on 11-29 SARS-CoV-2 (COVID-19) RNA TJ+probe Ql (Unsp spec) Not detected Normal NOT DETECTED [facility] Comment on above: Result Comment: This test is not yet approved or cleared by the [place] FDA. When there are no FDA-approved or cleared tests available, and other criteria are met, FDA can make tests available under an emergency access mechanism called an Emergency Use Authorization (EUA). The EUA for this test is supported by the Remote Sensing Specialist of Health and Human Service's (HHS's) declaration [...] SARS-CoV-2. Performed By: #### C VDTBH #### [facility] [address] [place] [address] Dr. Dimitri Veliz PROF CHEM 8 (BAS METB)on Anion gap [Moles/Vol] 14.8 mmol/L Normal [facility] Comment on above: Performed By: #### B MP #### [facility] [address] [place] [address] Dr. Dimitri Veliz Calcium [Mass/Vol] 9.4 mg/dL Normal 8.5-10.1 [facility] Comment on above: Performed By: #### B MP #### [facility] [address] [place] [address] Dr. Dimitri Veliz Chloride [Moles/Vol] 100 mmol/L Normal 98-107 [facility] Comment on above: Performed By: #### B MP #### [facility] [address] [place] [address] Dr. Dimitri Veliz CO2 [Moles/Vol] 25.1 mmol/L Normal 21.0-32.0 [facility] Comment on above: Performed By: #### B MP #### [facility] [address] [address] [address] Dimitri Veliz Creatinine [Mass/Vol] 0.95 mg/dL Normal 0.55-1.02 [facility] Comment on above: Performed By: #### B MP #### [facility] [address] [address] [address] Dimitri Veliz EGFR-AF RUSSIAN >60 Normal >=60 [facility] Comment on above: Performed By: #### B MP #### [facility] [address] [address] [address] Dimitri Veliz EGFR-NON AF RUSSIAN >60 Normal >=60 [facility] Comment on above: Performed By: #### B MP #### [facility] [address] [place] [address] Dr. Dimitri Veliz Glucose [Mass/Vol] 82 mg/dL Normal 74-106 [facility] Comment on above: Performed By: #### B MP #### [facility] [address] [place] [address] Dr. Dimitri Veliz Potassium [Moles/Vol] 3.9 mmol/L Normal 3.5-5.1 [facility] Comment on above: Performed By: #### B MP #### [facility] [address] [place] [address] Dr. Dimitri Veliz Sodium [Moles/Vol] 136 mmol/L Normal 136-145 [facility] Comment on above: Performed By: #### B MP #### [facility] [address] [address] [address] Dimitri Veliz Urea nitrogen [Mass/Vol] 12.0 mg/dL Normal 7.0-18.0 [facility] Comment on above: Performed By: #### B MP #### [facility] [address] [place] [address] Dr. Dimitri Veliz Urea nitrogen/Creatinine [Mass ratio] 12.6 mg/mg Normal [facility] Comment on above: Performed By: #### B #### [facility] [address] [address] [address] Dimitri Veliz XR ANKLE LT MIN 3 Von 2022 XR ANKLE LT MIN 3 V EXAM: XR ANKLE LT AK N 3 V HISTORY: Arthralgia of the [...] SUNSHINE DUBON Date: 2022-12-09 05:04 Normal [facility] US Carotid, Bilateralon -2 US Carotid, Bilateral CLINICAL HISTORY: History of [...] by Gabe Hayes on 10/19/2022 1050 Normal [facility] Ammunition Officer BNPon 10-06-2022 Natriuretic peptide B (Bld) [Mass/Vol] 19.0 pg/mL Normal <=900.0 [facility] Comment on above: Performed By: #### B OCULAR PATHOLOGIST, CMADM, CMP ####[facility] [address]rx[address] [place], [place] [address]SqFederico Veliz CARDIAC ALICIA ADMITon 022 CK [Catalytic activity/Vol] 94 U/L Normal 26-192 [facility] Comment on above: Performed By: #### B OCULAR PATHOLOGIST, CMADM, CMP ####[facility] [address] [address]Dr. Dimitri Veliz CK.MB [Mass/Vol] 2.43 ng/mL Normal <=3.60 [facility] Comment on above: Performed By: #### B OCULAR PATHOLOGIST, CMADM, CMP ####[facility] [address] [address]Dr. Dimitri Veliz HSTROP 11.2 pg/mL Normal 4.0-51.3 [facility] Comment on above: Result Comment: CUT- OFF POINTS HAVE BEEN ESTABLISHED BASED ON THE FOURTH UNIVERSAL DEFINITIONS OF MYOCARDIAL INFARCTION. THE UPPER REFERENCE LIMIT (URL) OF TROPONIN, DEFINED THE 99TH PERCENTILE OF cTnI DISTRIBUTION IN A REFERENCE POPULATION, HAS BEEN CONFIRMED THE DECISION THRESHOLD FOR AK DIAGNOSIS. Performed By: #### B OCULAR PATHOLOGIST, CMADM, CMP ####[facility] [address] [address]Dr. Dimitri Veliz KAY 60 ng/mL Normal 9-82 [facility] Comment on above: Performed By: #### B OCULAR PATHOLOGIST, CMADM, CMP ####[facility] [address] [address]Dr. Dimitri Veliz CBC AUTO DIFFon 10-06-2022 BASO # 0.1 103/ul Normal 0.0-0.1 [facility] Comment on above: Performed By: #### C BC ####[facility] [address] [address]Dr. Dimitri Jose Alfredo Basophils/100 WBC (Bld) 1.1 % Normal 0.2-2.0 [facility] Comment on above: Performed By: #### C BC ####[facility] [address] [id number]. Dimitri Veliz EO # 0.3 103/ul Normal 0.0-0.7 [facility] Comment on above: Performed By: #### C BC ####[facility] [address] [address]Dr. Dimitri Jose Alfredo Eosinophils/100 WBC (Bld) 3.3 % Normal 0.9-7.0 [facility] Comment on above: Performed By: #### C BC ####[facility] [address] [address]Dr. Dimitri Veliz Erythrocyte distribution width (RBC) [Ratio] 13.0 % Normal 11.0-15.0 [facility] Comment on above: Performed By: #### C BC ####[facility] [address] [id number]. Dimitri Veliz Hematocrit (Bld) [Volume fraction] 38.1 % Normal 36.0-48.0 [facility] Comment on above: Performed By: #### C BC ####[facility] [address] [place], [place] [address]Dr. Dimitri Veliz Hemoglobin (Bld) [Mass/Vol] 12.8 g/dL Normal 12.0-16.0 [facility] Comment on above: Performed By: #### C BC ####[facility] Us[address] [place], [place] [address]Dr. Dimitri Veliz IG # 0.03 10e3/ul Normal 0.00-0.03 [facility] Comment on above: Performed By: #### C BC ####[facility] Aiqoud[address] [place], [place] [address]Dr. Dimitri Veliz IG % 0.4 % Normal 0.0-0.5 [facility] Comment on above: Performed By: #### C BC ####[facility] Itsfkxzhvm[address] [place], [place] [address]Dr. Dimitri Veliz LYMPH # 2.2 103/ul Normal 1.2-3.8 [facility] Comment on above: Performed By: #### C BC ####[facility] Jl[address]agkb[address] [place], [place] [address]Dr. Dimitri Veliz Lymphocytes/100 WBC (Bld) 25.7 % Normal 20.5-60.0 [facility] Comment on above: Performed By: #### C BC ####[facility] Binuklwoko[address] [place], [place] [address]Dr. Dimitri Veliz MANUAL DIFF REQ NO Normal The [facility] Comment on above: Performed By: #### C BC ####[facility] [address] [address]Dr. Dimitri Veliz MCH (RBC) [Entitic mass] 30.1 pg Normal 26.7-34.0 [facility] Comment on above: Performed By: #### C BC ####[facility] [address] [address]Dr. Dimitri Veliz MCHC (RBC) [Mass/Vol] 33.6 g/dL Normal 29.9-35.2 [facility] Comment on above: Performed By: #### C BC ####[facility] [address]rterce[address] [place], [place] [address]Dr. Dimitri Veliz MCV (RBC) [Entitic vol] 89.6 fL Normal 81.0-99.0 [facility] Comment on above: Performed By: #### C BC ####[facility] Jgxxb[address]xhw[address] [place], [place] [address]Dr. Dimitri Jose Alfredo MONO # 0.7 103/ul Normal 0.3-0.8 [facility] Comment on above: Performed By: #### C BC ####[facility] Sudagrspsj[address] [place], [place] [address]Dr. Dimitri Veliz Monocytes/100 WBC (Bld) 7.9 % Normal 1.7-12.0 [facility] Comment on above: Performed By: #### C BC ####[facility] C[address]bwvxx[address] [place], [place] [address]Dr. Dimitri Veliz NEUT # 5.2 103/ul Normal 1.4-6.5 [facility] Comment on above: Performed By: #### C BC ####[facility] Qldhakxnsf[address] [place], [place] [address]Dr. Dimitri Jose Alfredo Neutrophils/100 WBC (Bld) 61.6 % Normal 43.0-75.0 [facility] Comment on above: Performed By: #### C BC ####[facility] Jcdb[address]udq[address] [place], [place] [address]Dr. Dimitri Veliz Platelet mean volume (Bld) [Entitic vol] 8.9 fL Critically low 9.5-13.5 [facility] Comment on above: Performed By: #### C BC ####[facility] [address] [id number]. Dimitri Veliz PLT 429 103/ul Normal 150-450 [facility] Comment on above: Performed By: #### C BC ####[facility] [address]xdxfs[address] [address]Dr. Dimitri Veliz RBC 4.25 106/ul Normal 4.20-5.40 [facility] Comment on above: Performed By: #### C BC ####[facility] [address]fe[address] [id number]. Dimitri Veliz WBC 8.5 103/ul Normal 4.0-11.0 [facility] Comment on above: Performed By: #### C BC ####[facility] Emaekjiryu[address] [place], [place] [address]Dr. Dimitri Veliz ER URINE PROFILEon 2 Bilirubin Ql (U) Negative Normal NEGATIVE [facility] Comment on above: Performed By: #### U MICRO, ERUR ####[facility] Ftxxyruaha[address] [place], [place] [address]Dr. Dimitri Veliz Clarity (U) CLEAR Normal CLEAR [facility] Comment on above: Performed By: #### U MICRO, ERUR ####[facility] Qoxethphnb[address] [place], [place] [address]Dr. Dimitri Veliz Color (U) YELLOW Normal YELLOW [facility] Comment on above: Performed By: #### U MICRO, ERUR ####[facility] Ikzrxjiqkl[address] [place], [place] [address]Dr. Dimitri Veliz ERUAHD A micrscopic examina tion will be performed if indicated. Normal [facility] Comment on above: Performed By: #### U MICRO, ERUR ####[facility] Bcubaseglp[address] [place], [place] [address]Dr. Dimitri Veliz Glucose Ql (U) Negative Normal NEGATIVE [facility] Comment on above: Performed By: #### U MICRO, ERUR ####[facility] Xbrwevreav[address] [place], [place] [address]Dr. Dimitri Veliz Hemoglobin Ql (U) TRACE-INTACT Abnormal NEGATIVE [facility] Comment on above: Performed By: #### U MICRO, ERUR ####[facility] [address] [address]Dr. Dimitri Veliz Ketones Ql (U) Negative Normal NEGATIVE [facility] Comment on above: Performed By: #### U MICRO, ERUR ####[facility] [address] [address]Dr. Dimitri Veliz LEUKOCYTES Negative Normal NEGATIVE [facility] Comment on above: Performed By: #### U MICRO, ERUR ####[facility] O[address] [address]Dr. Dimitri Veliz Nitrite Ql (U) Negative Normal NEGATIVE [facility] Comment on above: Performed By: #### U MICRO, ERUR ####[facility] Uezfwuasro[address] [place], [place] [address]Dr. Dimitri Veliz pH (U) 6.0 [pH] Normal 5-9 [facility] Comment on above: Performed By: #### U MICRO, ERUR ####[facility] Xggsg[address]ng[address] [place], [place] [address]Dr. Dimitri Veliz SPEC GRAVITY 1.025 Normal 1.005-<=1. 025 [facility] Comment on above: Performed By: #### U MICRO, ERUR ####[facility] Gjvkueiimg[address] [place], [place] [address]Dr. Dianajayant Veliz UA PROTEIN Negative Normal NEGATIVE/ TRACE [facility] Comment on above: Performed By: #### U MICRO, ERUR ####[facility] At[address] [place], [place] [address]Dr. Dianajayant Veliz UR MICRO IND INDICATED Normal [facility] Comment on above: Performed By: #### U MICRO, ERUR ####[facility] Qwiwdiobba[address] [place], [place] [address]Dr. Dimitri Veliz Urobilinogen Qn (U) 0.2 {Padmini'U}/dL Normal 0.2 - 1. 0 [facility] Comment on above: Performed By: #### U MICRO, ERUR ####[facility] [address] [address]Dr. Dimitri Veliz PROF 14(COMP METB)on 022 Albumin [Mass/Vol] 4.0 g/dL Normal 3.4-5.0 [facility] Comment on above: Performed By: #### B OCULAR PATHOLOGIST, CMADM, CMP ####[facility] [address] [id number]. Dimitri Veliz Albumin/Globulin [Mass ratio] 1.0 {ratio} Normal [facility] Comment on above: Performed By: #### B OCULAR PATHOLOGIST, CMADM, CMP ####[facility] [address] [address]Dr. Dimitri Veliz ALP [Catalytic activity/Vol] 91 U/L Normal 46-116 [facility] Comment on above: Performed By: #### B OCULAR PATHOLOGIST, CMADM, CMP ####[facility] [address] [address]Dr. Dimitri Veliz ALT [Catalytic activity/Vol] 34 U/L Normal 14-59 [facility] Comment on above: Performed By: #### B OCULAR PATHOLOGIST, CMADM, CMP ####[facility] [address]pey[address] [address]Dr. Dimitri Veliz Anion gap [Moles/Vol] 8.6 mmol/L Normal [facility] Comment on above: Performed By: #### B OCULAR PATHOLOGIST, CMADM, CMP ####[facility] Y[address]tti[address] [address]Dr. Dimitri Veliz AST [Catalytic activity/Vol] 18 U/L Normal 15-37 [facility] Comment on above: Performed By: #### B OCULAR PATHOLOGIST, CMADM, CMP ####[facility] Xs[address]isuhq[address] [address]Dr. Dimitri Veliz Bilirubin [Mass/Vol] 0.5 mg/dL Normal 0.2-1.0 [facility] Comment on above: Performed By: #### B OCULAR PATHOLOGIST, CMADM, CMP ####[facility] [address] [address]Dr. Dimitri Veliz Calcium [Mass/Vol] 9.5 mg/dL Normal 8.5-10.1 [facility] Comment on above: Performed By: #### B OCULAR PATHOLOGIST, CMADM, CMP ####[facility] [address] [address]Dr. Dimitri Veliz Chloride [Moles/Vol] 101 mmol/L Normal 98-107 [facility] Comment on above: Performed By: #### B OCULAR PATHOLOGIST, CMADM, CMP ####[facility] [address]yn[address] [address]Dr. Dimitri Veliz CO2 [Moles/Vol] 29.1 mmol/L Normal 21.0-32.0 [facility] Comment on above: Performed By: #### B OCULAR PATHOLOGIST, CMADM, CMP ####[facility] [address]yrgz[address] [address]Dr. Dimitri Veliz Creatinine [Mass/Vol] 0.86 mg/dL Normal 0.55-1.02 [facility] Comment on above: Performed By: #### B OCULAR PATHOLOGIST, CMADM, CMP ####[facility] [address]ns[address] [address]Dr. Dimitri Veliz EGFR-AF RUSSIAN >60 Normal >=60 [facility] Comment on above: Performed By: #### B OCULAR PATHOLOGIST, CMADM, CMP ####[facility] [address]dr[address] [address]Dr. Dimitri Veliz EGFR-NON AF RUSSIAN >60 Normal >=60 [facility] Comment on above: Performed By: #### B OCULAR PATHOLOGIST, CMADM, CMP ####[facility] [address]zqpp[address] [address]Dr. Dimitri Veliz Globulin (S) [Mass/Vol] 4.0 g/dL Normal [facility] Comment on above: Performed By: #### B OCULAR PATHOLOGIST, CMADM, CMP ####[facility] T[address]lozh[address] [address]Dr. Dimitri Veliz Glucose [Mass/Vol] 110 mg/dL Critically high 74-106 T [facility] Comment on above: Performed By: #### B OCULAR PATHOLOGIST, CMADM, CMP ####[facility] [address]ckpzb[address] [address]Dr. Dimitri Veliz Potassium [Moles/Vol] 3.7 mmol/L Normal 3.5-5.1 [facility] Comment on above: Performed By: #### B OCULAR PATHOLOGIST, CMADM, CMP ####[facility] [address]dx[address] [address]Dr. Dimitri Veliz Protein [Mass/Vol] 8.0 g/dL Normal 6.4-8.2 [facility] Comment on above: Performed By: #### B OCULAR PATHOLOGIST, CMADM, CMP ####[facility] [address]xq[address]ustk[address] [address]Dr. Dimitri Veliz Sodium [Moles/Vol] 135 mmol/L Critically low 136-145 [facility] Comment on above: Performed By: #### B OCULAR PATHOLOGIST, CMADM, CMP ####[facility] [address]vp[address] [place], [place] [address]Dr. Dimitri Veliz Urea nitrogen [Mass/Vol] 14.0 mg/dL Normal 7.0-18.0 [facility] Comment on above: Performed By: #### B OCULAR PATHOLOGIST, CMADM, CMP ####[facility] [address]ecxalnj[address] [place], [place] [address]Dr. Dimitri Veliz Urea nitrogen/Creatinine [Mass ratio] 16.3 mg/mg Normal [facility] Comment on above: Performed By: #### B OCULAR PATHOLOGIST, CMADM, CMP ####[facility] [address] [address]Dr. Dimitri Veliz URINE MICROSCOPIC ONLYon BACTERIA NONE SEEN Normal NONE SEEN [facility] Comment on above: Performed By: #### U MICRO, ERUR ####[facility] Wrfsijrfqm[address] [place], [place] [address]Dr. Dimitri Veliz Bacteria identified Cx Nom (U) NOT INDICATED Normal [facility] Comment on above: Performed By: #### U MICRO, ERUR ####[facility] [address]qinbweh[address] [place], [place] [address]Dr. Dimitri Veliz CAST NONE SEEN Normal NONE SEEN [facility] Comment on above: Performed By: #### U MICRO, ERUR ####[facility] [address] [address]Dr. Dianajayant Veliz Crystals LM Nom (Urine sed) NONE SEEN Normal NONE SEEN [facility] Comment on above: Performed By: #### U MICRO, ERUR ####[facility] [address]vb[address] [address]Dr. Dianajayant Veliz Epithelial cells LM Ql (Urine sed) MODERATE Abnormal NONE SEEN /RARE [facility] Comment on above: Performed By: #### U MICRO, ERUR ####[facility] [address]uzk[address] [address]Dr. Dianajayant Veliz MUCOUS NONE SEEN Normal NONE SEEN [facility] Comment on above: Performed By: #### U MICRO, ERUR ####[facility] [address]maxju[address] [address]Dr. Dimitri Veliz RBC 2-5 Abnormal 0-2 [facility] Comment on above: Performed By: #### U MICRO, ERUR ####[facility] [address] [address]Dr. Dimitri Veliz WBC NONE SEEN Normal NONE SEEN [facility] Comment on above: Performed By: #### U MICRO, ERUR ####[facility] [address] [address]Dr. Dimitri Veliz XR CHEST 2 Von 10-06-2022 [...] SHELBY ECHAVARRIA Date: 2022-10-06 13:59 Normal [facility] CT ABD/PELVIS WO CONon 08-06 CT ABD/PELVIS WO CON EXAMINATION: CT ABD/PELVIS WO CON, 08/06/2022 8:11 AM EDT HISTORY: [...] WILLIAM CLAUDIO Date: 2022-08-06 08:52 Normal [facility] ER URINE PROFILEon 2 Bilirubin Ql (U) Negative Normal NEGATIVE [facility] Comment on above: Performed By: #### MONSTER SHEPARD #### [facility] [address] [place] [address] Dr. Dimitri Veliz Clarity (U) CLEAR Normal CLEAR [facility] Comment on above: Performed By: #### NATASHA SHEPARDRO #### [facility] [address] [place] [address] Dr. Dimitri Veliz Color (U) LT. YELLOW Normal YELLOW [facility] Comment on above: Performed By: #### Kevin MIMS UMICRO #### [facility] [address] [place] [address] Dr. Dimitri Veliz ERUAHD A micrscopic examina tion will be performed if indicated. Normal [facility] Comment on above: Performed By: #### NATASHA SHEPARDRO #### [facility] [address] [place] [address] Dr. Dimitri Veliz Glucose Ql (U) Negative Normal NEGATIVE [facility] Comment on above: Performed By: #### Kevin MIMS UMICRO #### [facility] [address] [place] [address] Dr. Dimitri Veliz Hemoglobin Ql (U) SMALL Abnormal NEGATIVE [facility] Comment on above: Performed By: #### Kevin MIMS UMICRO #### [facility] [address] [place] [address] Dr. Dimitri Veliz Ketones Ql (U) Negative Normal NEGATIVE [facility] Comment on above: Performed By: #### Kevin MIMS UMICRO #### [facility] [address] [place] [address] Dr. Dimitri Veliz LEUKOCYTES Negative Normal NEGATIVE [facility] Comment on above: Performed By: #### Kevin MIMS UMICRO #### [facility] [address] [place] [address] Dr. Dimitri Veliz Nitrite Ql (U) Negative Normal NEGATIVE [facility] Comment on above: Performed By: #### NATASHA SHEPARDRO #### [facility] [address] [place] [address] Dr. Dimitri Veliz pH (U) 6.0 [pH] Normal 5-9 [facility] Comment on above: Performed By: #### NATASHA SHEPARDRO #### [facility] [address] [place] [address] Dr. Dimitri Veliz SPEC GRAVITY 1.025 Normal 1.005-<=1. 025 [facility] Comment on above: Performed By: #### NATASHA SHEPARDRO #### [facility] [address] [place] [address] Dr. Dimitri Veliz UA PROTEIN Negative Normal NEGATIVE/ TRACE [facility] Comment on above: Performed By: #### NATASHA SHEPARDRO #### [facility] [address] [place] [address] Dr. Dimitri Veliz UR MICRO IND INDICATED Normal [facility] Comment on above: Performed By: #### NATASHA SHEPARDRO #### [facility] [address] [place] [address] Dr. Dimitri Veliz Urobilinogen Qn (U) 0.2 {Padmini'U}/dL Normal 0.2 - 1. 0 [facility] Comment on above: Performed By: #### NATASHA SHEPARDRO #### [facility] [address] [place] [address] Dr. Dimitri Veliz URINE MICROSCOPIC ONLYon BACTERIA TRACE Abnormal NONE SEEN [facility] Comment on above: Performed By: #### Kevin MIMS UMICRO #### [facility] [address] [place] [address] Dr. Dimitri Veliz Bacteria identified Cx Nom (U) NOT INDICATED Normal [facility] Comment on above: Performed By: #### Kevin MIMS UMICRO #### [facility] [address] [place] [address] Dr. Dimitri Veliz CAST NONE SEEN Normal NONE SEEN [facility] Comment on above: Performed By: #### Kevin MIMS UMICRO #### [facility] [address] [place] [address] Dr. Dimitri Veliz Crystals LM Nom (Urine sed) NONE SEEN Normal NONE SEEN [facility] Comment on above: Performed By: #### Kevin MIMS UMICRO #### [facility] [address] [place] [address] Dr. Dimitri Veliz Epithelial cells LM Ql (Urine sed) MODERATE Abnormal NONE SEEN /RARE [facility] Comment on above: Performed By: #### Kevin MIMS UMICRO #### [facility] [address] [place] [address] Dr. Dimitri Veliz MUCOUS NONE SEEN Normal NONE SEEN [facility] Comment on above: Performed By: #### Kevin MIMS UMICRO #### [facility] [address] [place] [address] Dr. Dimitri Veliz RBC 2-5 Abnormal 0-2 [facility] Comment on above: Performed By: #### Kevin MIMS UMICRO #### [facility] [address] [place] [address] Dr. Dimitri Veliz WBC 0-2 Abnormal NONE SEEN [facility] Comment on above: Performed By: #### E MONSTER MIMS #### [facility] [address] [address] [address] Dimitri Veliz XR LSPINE 2_3 VIEWSon [...] JANNETTE QUINN Date: 2022-08-06 08:26 Normal [facility] XR knee RT 4V*on 07-22-2022 XR knee RT 4V* [facility] [email or web address] Other XR knee RT 4V* [facility] [email or web address] Other XR knee RT 4V* [address] [place] [address] [email or web address] Other XR knee RT 4V* [place] [address] No rt [email or web address] Other XR knee RT 4V* XRay Report [employer] Other XR knee RT 4V* Signed [email or web address] Other XR knee RT 4V* Patient: Eva Swenson raza Chasity MR#: [id number] [email or web address] Other XR knee RT 4V* 1450 [email or web address] Other XR knee RT 4V* : 1970 Acct:[id number] [employer] Other XR knee RT 4V* Age/Sex: 52 / F ADM Date: 07/22/22 [employer] Other XR knee RT 4V* Loc: [id number] Room: pe: [facility] [employer] Other XR knee RT 4V* Attending Dr: Abel Wan [facility] [employer] Other XR knee RT 4V* Copies to: Abel go Savage [facility] [employer] Other XR knee RT 4V* Ordering Provider: Candace Esteves Savage CMM [employer] Other XR knee RT 4V* Date of Service: 07/22/22 [employer] Other XR knee RT 4V* XR/XR knee RT 4V*: Acute pain of right knee [employer] Other XR knee RT 4V* 4 views RIGHT knee p paul film [employer] Other XR knee RT 4V* COMPARISON:None [employer] Other XR knee RT 4V* HISTORY:Chronic RIGH T knee pain for several months. [employer] Other XR knee RT 4V* No fracture, disloca tion or focal soft tissue abnormality seen.No joint effusion identified. [employer] Other XR knee RT 4V* X R/XR knee RT 4V* [employer] Other XR knee RT 4V* IMPRESSION:No acute findings [employer] Other XR knee RT 4V* Impression dictated by: Danielito Haro M.D.07/22/2022 5:37 PM [employer] Other XR knee RT 4V* Dictation Location: [place] [address] [employer] Other XR knee RT 4V* Transcribed By: PWS 07/22/221736 [employer] Other XR knee RT 4V* Dictated By: Jesus Haro DO 07/22/221731 [employer] Other XR knee RT 4V* Signed By: [email or web address] Other XR knee RT 4V* 07/22/221736 [place] [employer] [facility] Other Complete Blood Counton 04-23 Erythrocyte distribution width (RBC) [Ratio] 13.1 % Normal 11.0-15.0 [facility] Ammunition Officer Comment on above: Performed By: #### L IPD, CMP, CBC #### [facility] [address] [place], [place] [id number] Hematocrit (Bld) [Volume fraction] 39.9 % Normal 35.0-47.0 [facility] Ammunition Officer Comment on above: Performed By: #### L IPD, CMP, CBC #### [facility] [address] [place], [place] [id number] Hemoglobin (Bld) [Mass/Vol] 12.8 g/dL Normal 11.6-15.5 [facility] Ammunition Officer Comment on above: Performed By: #### L IPD, CMP, CBC #### [facility] [address] [place], [place] [id number] MCH (RBC) [Entitic mass] 29.9 pg Normal 27.0-33.0 [facility] Specialist Comment on above: Performed By: #### L IPD, CMP, CBC #### [facility] [address] [place], [place] [id number] MCHC (RBC) [Mass/Vol] 32.1 g/dL Normal 32.0-36.0 [facility] Comment on above: Performed By: #### L IPD, CMP, CBC #### [facility] [address] [place], [place] [id number] MCV (RBC) [Entitic vol] 93 fL Normal 80-100 [facility] Specialist Comment on above: Performed By: #### L IPD, CMP, CBC #### [facility] [address] [place], [place] [id number] Platelet mean volume (Bld) [Entitic vol] 9.00 fL Normal 7.50-12.50 [facility] Comment on above: Performed By: #### L IPD, CMP, CBC #### [facility] [address] [place], [place] [id number] Platelets (Bld) [#/Vol] 336 10*3/uL Normal 140-400 [facility] Comment on above: Performed By: #### L IPD, CMP, CBC #### [facility] [address] [place], [place] [id number] RBC (Bld) [#/Vol] 4.28 10*6/uL Normal 3.90-5.20 [facility] Comment on above: Performed By: #### L IPD, CMP, CBC #### [facility] [address] [place], [place] [id number] RDW-SD 44.9 fL Normal 37.0-50.0 [facility] Specialist Comment on above: Performed By: #### L IPD, CMP, CBC #### [facility] [address] [place], [place] [id number] WBC (Bld) [#/Vol] 7.0 10*3/uL Normal 3.8-11.0 [facility] Specialist Comment on above: Performed By: #### L IPD, CMP, CBC #### [facility] [address] [place], [place] [id number] Comprehensive Metabolic Pane evelyn 04-23-2022 Albumin [Mass/Vol] 4.5 g/dL Normal 3.6-5.1 [facility] Specialist Comment on above: Performed By: #### L IPD, CMP, CBC #### [facility] [address] [place], [place] [id number] Albumin/Globulin [Mass ratio] 1.8 {ratio} Normal 1.0-2.5 [facility] Specialist Comment on above: Performed By: #### L IPD, CMP, CBC #### [facility] [address] [place], [place] [id number] ALP [Catalytic activity/Vol] 82 U/L Normal 35-119 [facility] Specialist Comment on above: Performed By: #### L IPD, CMP, CBC #### [facility] [address] [place], [place] [id number] ALT [Catalytic activity/Vol] 44 U/L High 6-33 [facility] Comment on above: Result Comment: 10/29 Female reference range changed. Performed By: #### L IPD, CMP, CBC #### [facility] [address] [facility] [place] [id number] Anion gap [Moles/Vol] 17 mmol/L Normal 12-20 [facility] Comment on above: Result Comment: Effe ctive 12/04/2019 reference range changed. Performed By: #### L IPD, CMP, CBC #### [facility] [address] [place], [place] [id number] AST [Catalytic activity/Vol] 34 U/L Normal 9-34 [facility] Comment on above: Performed By: #### L IPD, CMP, CBC #### [facility] [address] [place], [place] [id number] Bilirubin [Mass/Vol] 0.33 mg/dL Normal 0.30-1.20 [facility] Comment on above: Performed By: #### L IPD, CMP, CBC #### [facility] [address] [place], [place] [id number] BUN/CREA 16 Ratio Normal 6-22 [facility] Comment on above: Performed By: #### L IPD, CMP, CBC #### [facility] [address] [place], [place] [id number] Calcium [Mass/Vol] 9.4 mg/dL Normal 8.6-10.2 [facility] Comment on above: Performed By: #### L IPD, CMP, CBC #### [facility] [address] [facility] [place] [id number] Chloride [Moles/Vol] 101 mmol/L Normal 98-107 [facility] Comment on above: Performed By: #### L IPD, CMP, CBC #### [facility] [address] [place], [place] [id number] CO2 [Moles/Vol] 24 mmol/L Normal 20-31 [place] Ammunition Officer Comment on above: Performed By: #### L IPD, CMP, CBC #### [facility] [address] [place], [place] [id number] Creatinine [Mass/Vol] 0.8 mg/dL Normal 0.6-1.4 [facility] Specialist Comment on above: Performed By: #### L IPD, CMP, CBC #### [facility] [address] [place], [place] [id number] eGFRAA 91 mL/min/1.73m2 Normal >60 [facility] Specialist Comment on above: Performed By: #### L IPD, CMP, CBC #### [facility] [address] [place], [place] [id number] eGFRNAA 75 mL/min/1.73m2 Normal >60 [facility] Specialist Comment on above: Performed By: #### L IPD, CMP, CBC #### [facility] [address] [place], [place] [id number] Globulin (S) [Mass/Vol] 2.5 g/dL Normal 1.9-3.7 [facility] Ammunition Officer Comment on above: Performed By: #### L IPD, CMP, CBC #### [facility] [address] [place], [place] [id number] Glucose [Mass/Vol] 92 mg/dL Normal 65-[address] [facility] Ammunition Officer Comment on above: Result Comment: For FASTING Glucose --- ADA reference ranges: Normal 65-99 mg/dl Prediabetes 100-125 Diabetes >/= 126 Performed By: #### L IPD, CMP, CBC #### [facility] [address] [place], [place] [id number] Potassium [Moles/Vol] 4.1 mmol/L Normal 3.5-5.5 [facility] Specialist Comment on above: Performed By: #### L IPD, CMP, CBC #### [facility] [address] [place], [place] [id number] Protein [Mass/Vol] 7.0 g/dL Normal 6.1-8.[address] [facility] Ammunition Officer Comment on above: Performed By: #### L IPD, CMP, CBC #### [facility] [address] [place], [place] [id number] Sodium [Moles/Vol] 137 mmol/L Normal 135-146 [facility] Comment on above: Performed By: #### L IPD, CMP, CBC #### [facility] [address] [place], [place] [id number] Urea nitrogen [Mass/Vol] 13 mg/dL Normal 7-25 [facility] Specialist Comment on above: Performed By: #### L IPD, CMP, CBC #### [facility] [address] [place], [place] [id number] Lipid Panelon 04-23-2022 Cholesterol [Mass/Vol] 332 mg/dL High 125-200 [facility] on above: Result Comment: Low risk < 200mg/dL Borderline risk 201-239 mg/dl High risk > or equal to 240 Performed By: #### L IPD, CMP, CBC #### [facility] [address] [place], [place] [id number] Cholesterol in HDL [Mass/Vol] 50 mg/dL Normal >40 [facility] Specialist Comment on above: Result Comment: High Cardiovascular Risk HDL <40 mg/dL Low Cardiovascular Risk HDL > or equal to 60 mg/dl Performed By: #### L IPD, CMP, CBC #### [facility] [address] [place], [place] [id number] Cholesterol in LDL [Mass/Vol] 230 mg/dL Normal [facility] Comment on above: Result Comment: LDL ATP III CLASSIFICATION LDL less than 100 mg/dl Optimal LDL 100-129 mg/dl Near or above optimal LDL 130-159 Borderline high LDL 160-189 High LDL greater than 189 mg/dl Very High Performed By: #### L IPD, CMP, CBC #### [facility] [address] [place], [place] [id number] Cholesterol in VLDL [Mass/Vol] 52 mg/dL Normal [facility] Comment on above: Performed By: #### L IPD, CMP, CBC #### [facility] [address] [place], [place] [id number] Cholesterol.total/Chol esterol in HDL [Mass ratio] 7 {ratio} Normal [facility] Comment on above: Performed By: #### L IPD, CMP, CBC #### [facility] [address] [place], [place] [id number] Triglyceride [Mass/Vol] 258 mg/dL High 30-150 [facility] Ammunition Officer Comment on above: Result Comment: TRIG ATPIII CLASSIFICATIONS TRIG less than 150 mg/dl Normal TRIG 150-199 mg/dl Borderline High TRIG 200-500 mg/dl High TRIG greather than 500 mg/dl Very High Performed By: #### L IPD, CMP, CBC #### [facility] [address] [place], [place] [id number] Complete Blood Count with Au to Diffon 01-21-2022 Basophils (Bld) [#/Vol] 0.08 10*3/uL Normal 0.00-0.20 [facility] Ammunition Officer Comment on above: Performed By: #### L IPD, CMP, CBCAD #### [facility] [address] [place], [place] [id number] Basophils/100 WBC (Bld) 1.0 % Normal [facility] Ammunition Officer Comment on above: Performed By: #### L IPD, CMP, CBCAD #### [facility] [address] [place], [place] [id number] Eosinophils (Bld) [#/Vol] 0.29 10*3/uL Normal 0.02-0.50 [facility] Ammunition Officer Comment on above: Performed By: #### L IPD CMP, CBCAD #### [facility] [address] [place], [place] [id number] Eosinophils/100 WBC (Bld) 3.5 % Normal [facility] Ammunition Officer Comment on above: Performed By: #### L IPD, CMP, CBCAD #### [facility] [address] [place], [place] [id number] Erythrocyte distribution width (RBC) [Ratio] 13.2 % Normal 11.0-15.0 [facility] Ammunition Officer Comment on above: Performed By: #### L IPD, CMP, CBCAD #### [facility] [address] [place], [place] [id number] Hematocrit (Bld) [Volume fraction] 38.8 % Normal 35.0-47.0 [facility] Ammunition Officer Comment on above: Performed By: #### L IPD, CMP, CBCAD #### [facility] [address] [place], [place] [id number] Hemoglobin (Bld) [Mass/Vol] 12.6 g/dL Normal 11.6-15.5 [facility] Specialist Comment on above: Performed By: #### L IPD, CMP, CBCAD #### [facility] [address] [place], [place] [id number] Lymphocytes (Bld) [#/Vol] 3.5 10*3/uL Normal 0.9-3.9 [facility] Specialist Comment on above: Performed By: #### L IPD, CMP, CBCAD #### [facility] [address] [place], [place] [id number] Lymphocytes/100 WBC (Bld) 42.2 % Normal [facility] Comment on above: Performed By: #### L IPD, CMP, CBCAD #### [facility] [address] [place], [place] [id number] MCH (RBC) [Entitic mass] 29.6 pg Normal 27.0-33.0 [facility] Specialist Comment on above: Performed By: #### L IPD, CMP, CBCAD #### [facility] [address] [place], [place] [id number] MCHC (RBC) [Mass/Vol] 32.5 g/dL Normal 32.0-36.0 [facility] Comment on above: Performed By: #### L IPD, CMP, CBCAD #### [facility] [address] [place], [place] [id number] MCV (RBC) [Entitic vol] 91 fL Normal 80-100 [facility] Specialist Comment on above: Performed By: #### L IPD, CMP, CBCAD #### [facility] [address] [place], [place] [id number] Monocytes (Bld) [#/Vol] 0.6 10*3/uL Normal 0.2-0.9 [facility] Comment on above: Performed By: #### L IPD, CMP, CBCAD #### [facility] [address] [place], [place] [id number] Monocytes/100 WBC (Bld) 7.4 % Normal [facility] Specialist Comment on above: Performed By: #### L IPD, CMP, CBCAD #### [facility] [address] [place], [place] [id number] Neutrophils (Bld) [#/Vol] 3.8 10*3/uL Normal 1.5-7.8 [facility] Specialist Comment on above: Performed By: #### L IPD, CMP, CBCAD #### [facility] [address] [place], [place] [id number] Neutrophils/100 WBC (Bld) 45.5 % Normal [facility] Specialist Comment on above: Performed By: #### L IPD, CMP, CBCAD #### [facility] [address] [place], [place] [id number] Platelet mean volume (Bld) [Entitic vol] 9.20 fL Normal 7.50-12.50 [facility] Comment on above: Performed By: #### L IPD, CMP, CBCAD #### [facility] [address] [place], [place] [id number] Platelets (Bld) [#/Vol] 384 10*3/uL Normal 140-400 [facility] Specialist Comment on above: Performed By: #### L IPD, CMP, CBCAD #### [facility] [address] [place], [place] [id number] RBC (Bld) [#/Vol] 4.25 10*6/uL Normal 3.90-5.20 [facility] Ammunition Officer Comment on above: Performed By: #### L IPD, CMP, CBCAD #### [facility] [address] [place], [place] [id number] RDW-SD 44.0 fL Normal 37.0-50.0 [facility] Specialist Comment on above: Performed By: #### L IPD, CMP, CBCAD #### [facility] [address] [place], [place] [id number] WBC (Bld) [#/Vol] 8.4 10*3/uL Normal 3.8-11.0 [facility] Ammunition Officer Comment on above: Performed By: #### L IPD, CMP, CBCAD #### [facility] [address] [place], [place] [id number] Comprehensive Metabolic Pane evelyn 01-21-2022 Albumin [Mass/Vol] 5.2 g/dL High 3.6-5.1 [facility] Ammunition Officer Comment on above: Performed By: #### L IPD, CMP, CBCAD #### [facility] [address] [place], [place] [id number] Albumin/Globulin [Mass ratio] 2.4 {ratio} Normal 1.0-2.5 [facility] Comment on above: Performed By: #### L IPD, CMP, CBCAD #### [facility] [address] [place], [place] [id number] ALP [Catalytic activity/Vol] 77 U/L Normal 35-119 [facility] Comment on above: Performed By: #### L IPD, CMP, CBCAD #### [facility] [address] [place], [place] [id number] ALT [Catalytic activity/Vol] 33 U/L Normal 6-33 [facility] Comment on above: Result Comment: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 Evan Lucero MD Globulin (S) [Mass/Vol] 2.5 g/dL (calc) Normal 1.9-3.7 [facility] Comment on above: Order Comment: FASTI NG:NO FASTING: NO Performed By: #### 1 0231, 6399 #### [facility] [address] [place] , [address] [place] [address] Grocery Team Member: vEan Lucero MD Glucose [Mass/Vol] 99 mg/dL Normal 65-139 [facility] Comment on above: Order Comment: FASTI NG:NO FASTING: NO Result Comment: Non-fasting reference interval Performed By: #### 1 0231, 6399 #### [facility] [address] [place] , [address] [place] [address] Grocery Team Member: Evan Lucero MD Potassium [Moles/Vol] 4.0 mmol/L Normal 3.5-5.[address] [facility] Comment on above: Order Comment: FASTI NG:NO FASTING: NO Performed By: #### 1 0231, 6399 #### [facility] [address] [place] , [address] [place] [address] Grocery Team Member: Evan Lucero MD Protein [Mass/Vol] 6.6 g/dL Normal 6.1-8.1 [facility] Comment on above: Order Comment: FASTI NG:NO FASTING: NO Performed By: #### 1 1, 6399 #### [facility] [address] [place] , [address] [place] [address] Grocery Team Member: Evan Lucero MD Sodium [Moles/Vol] 142 mmol/L Normal 135-146 [facility] Comment on above: Order Comment: FASTI NG:NO FASTING: NO Performed By: #### 1 1, 6399 #### [facility] [address] [place] , [address] [place] [address] Grocery Team Member: Evan Lucero MD Urea nitrogen [Mass/Vol] 10 mg/dL Normal 7-25 [facility] Comment on above: Order Comment: FASTI NG:NO FASTING: NO Performed By: #### 1 0231, 6399 #### [facility] [address] [place] , [address] [place] [address] Grocery Team Member: Evan Lucero MD Urea nitrogen/Creatinine [Mass ratio] NOT APPLICABLE Normal 6-22 [facility] Comment on above: Order Comment: FASTI NG:NO FASTING: NO Performed By: #### 1 0231, 6399 #### [facility], [address] [place] [address] Grocery Team Member: Evan Lucero MD Vital Signs Date Time Vital Sign Value Performing Clinician Facility 04-30-2024 12:04-0400 Body height 165.1 cm MD Julio C Jarrett Work Phone: [facility] 04-30-2024 12:04-0400 Body mass index (BMI) [Ratio] 29.9 kg/m2 MD Julio C Jarrett Work Phone: [facility] 04-30-2024 12:04-0400 Body weight 81.64 kg MD Julio C Jarrett Work Phone: [facility] 04-30-2024 12:04-0400 Diastolic blood pressure 72 mm[Hg] MD Julio C Jarrett Work Phone: [facility] 04-30-2024 12:04-0400 Heart rate 79 /min MD Julio C Jarrett Work Phone: [facility] 04-30-2024 12:04-0400 SaO2% (BldA) [Mass fraction] 96 % MD Julio C Jarrett Work Phone: [facility] 04-30-2024 12:04-0400 Systolic blood pressure 105 mm[Hg] MD Julio C Jarrett Work Phone: [facility] 02-25-2024 13:05-0400 Diastolic blood pressure 71 mm[Hg] MD Julio C Jarrett Work Phone: [facility] 02-25-2024 13:05-0400 Heart rate 77 /min MD Julio C Jarrett Work Phone: [facility] 02-25-2024 13:05-0400 Respiratory rate 18 /min MD Jluio C Jarrett Work Phone: [facility] 02-25-2024 13:05-0400 SaO2% (BldA) [Mass fraction] 95 % MD Julio C Jarrett Work Phone: [facility] 02-25-2024 13:05-0400 Systolic blood pressure 110 mm[Hg] MD Julio C Jarrett Work Phone: [facility] 02-25-2024 10:00-0400 Body height 165.1 cm MD Julio C Jarrett Work Phone: [facility] 02-25-2024 10:00-0400 Body temperature 98.5 [degF] MD Julio C Jarrett Work Phone: [facility] 02-25-2024 10:00-0400 Body weight 81.64 kg MD Julio C Jarrett Work Phone: [facility] 01-22-2024 16:00-0500 Body temperature 98.2 [degF] PHYSICIAN NO [facility] 01-22-2024 16:00-0500 Diastolic blood pressure 84 mm[Hg] PHYSICIAN NO [place] 01-22-2024 16:00-0500 Heart rate 83 /min PHYSICIAN NO [facility] 01-22-2024 16:00-0500 Respiratory rate 18 /min PHYSICIAN NO [facility] 01-22-2024 16:00-0500 SaO2% (BldA) [Mass fraction] 95 % PHYSICIAN NO [place] 01-22-2024 16:00-0500 Systolic blood pressure 146 mm[Hg] PHYSICIAN NO [place] 01-22-2024 06:00-0500 Body weight 80.3 kg PHYSICIAN NO [facility] 01-21-2024 14:16-0500 Body height 165.1 cm PHYSICIAN NO [facility] 01-21-2024 12:15-0500 Diastolic blood pressure 77 mm[Hg] PHYSICIAN NO [place] 01-21-2024 12:15-0500 Heart rate 68 /min PHYSICIAN NO [facility] 01-21-2024 12:15-0500 Respiratory rate 20 /min PHYSICIAN NO [facility] 01-21-2024 12:15-0500 SaO2% (BldA) [Mass fraction] 96 % PHYSICIAN NO [place] 01-21-2024 12:15-0500 Systolic blood pressure 164 mm[Hg] PHYSICIAN NO [place] 01-21-2024 12:06-0500 Body height 165.1 cm PHYSICIAN NO [facility] 01-21-2024 12:06-0500 Body weight 80 kg PHYSICIAN NO [facility] 01-21-2024 11:19-0500 Body temperature 98.2 [degF] PHYSICIAN NO [facility] 07-22-2022 17:50-0400 Body height 162.56 cm Abel Savage Other [employer] Other 07-22-2022 17:50-0400 Diastolic blood pressure 83 mm[Hg] Abel Wan Other [employer] Other 07-22-2022 17:50-0400 Respiratory rate 18 /min Abel Wan Other [employer] Other 07-22-2022 17:50-0400 SaO2% (BldA) [Mass fraction] 99 % Abel Wan Other [employer] Other 07-22-2022 17:50-0400 Systolic blood pressure 120 mm[Hg] Abel Wan Other [employer] Other 06-25-2022 10:00-0400 Body height 162.56 cm Britney Asia Other [employer] Other 06-25-2022 10:00-0400 Body mass index (BMI) [Ratio] 35.25 kg/m2 [employer] Other [employer] Other 06-25-2022 10:00-0400 Body temperature 98 [degF] [employer] Other [employer] Other 06-25-2022 10:00-0400 Body weight 93.17 kg Britney [employer] Other [employer] Other 06-25-2022 10:00-0400 Diastolic blood pressure 85 mm[Hg] [employer] Other [employer] Other 06-25-2022 10:00-0400 Respiratory rate 18 /min [employer] Other [employer] Other 06-25-2022 10:00-0400 SaO2% (BldA) [Mass fraction] 99 % [employer] Other [employer] Other 06-25-2022 10:00-0400 Systolic blood pressure 139 mm[Hg] [employer] Other [employer] Other 05-09-2022 12:20-0400 Body height 162.56 cm Abel Wan Other [employer] Other 05-09-2022 12:20-0400 Body mass index (BMI) [Ratio] 36.04 kg/m2 Abel Wan Other [employer] Other 05-09-2022 12:20-0400 Body temperature 98.4 [degF] Abel Wan Other [employer] Other 05-09-2022 12:20-0400 Body weight 95.26 kg Abel Wan Other [employer] Other 05-09-2022 12:20-0400 Respiratory rate 18 /min Abel Savage Other [employer] Other 05-09-2022 12:20-0400 SaO2% (BldA) [Mass fraction] 98 % Abel Wan Other [employer] Other 12-11-2021 10:00-0500 Body height 162.56 cm [employer]ney [employer] Other [employer] Other 12-11-2021 10:00-0500 Body mass index (BMI) [Ratio] 34.81 kg/m2 [employer] Other [employer] Other 12-11-2021 10:00-0500 Body temperature 98.9 [degF] [employer] Other [employer] Other 12-11-2021 10:00-0500 Body weight 91.99 kg [employer] Other [employer] Other 12-11-2021 10:00-0500 Diastolic blood pressure 70 mm[Hg] [employer] Other [employer] Other 12-11-2021 10:00-0500 Respiratory rate 18 /min [employer] Other [employer] Other 12-11-2021 10:00-0500 SaO2% (BldA) [Mass fraction] 98 % [employer] Other [employer] Other 12-11-2021 10:00-0500 Systolic blood pressure 120 mm[Hg] [employer] Other [employer] Other Encounters Encounter Date Encounter Type Care Provider Facility Start: 05-05-2024 End: 05-05-2024 ambulatory MEL TRINIDAD Not Available Start: 04-30-2024 End: 04-30-2024 ambulatory MD Julio C Jarrett Work Phone: [facility] Work Phone: Start: 04-30-2024 End: 04-30-2024 Patient encounter procedure MD Julio C Jarrett Work Phone: [facility] Work Phone: Start: 04-28-2024 Registered Recurring MD Julio C Jarrett Work Phone: [facility] [place] Work Phone: Start: 03-15-2024 End: 03-15-2024 ambulatory ROVERTO CARRIZALES Not Available Start: 02-25-2024 Non-patient / Non-visit MD Daniel Jarrett Work Phone: Formerly [facility] Gastroenterology Work Phone: Start: 02-25-2024 End: 02-25-2024 ambulatory Julio C Jarrett Facility:[facility] Start: 02-25-2024 End: 02-25-2024 Admission to same day surgery center MD Julio C Jarrett Work Phone: [facility]-Digestive [facility] Work Phone: Start: 02-25-2024 End: 02-25-2024 ambulatory MD Julio C Jarrett Work Phone: [facility] Work Phone: Start: 02-21-2024 Registered Recurring MD Julio C Jarertt Work Phone: [facility] [place] Work Phone: Start: 02-02-2024 End: 02-02-2024 ambulatory ROVERTO CARRIZALES Not Available Start: 02-01-2024 End: 02-01-2024 ambulatory JULIO C JARRETT Not Available Start: 01-22-2024 Non-patient / Non-visit MD Daniel Jarrett Work Phone: [facility] Med OutPt Work Phone: Start: 01-21-2024 End: 01-22-2024 Evaluation and management of inpatient Michael Wells Facility:[facility] Start: 01-21-2024 End: 01-22-2024 Evaluation and management of inpatient PHYSICIAN NO [facility] [place] Med Surg Work Phone: Start: 01-21-2024 Registered Recurring PHYSICIAN NO [facility]-Physical Therapy [place] Work Phone: Start: 11-30-2023 End: 11-30-2023 ambulatory JULIO C JARRETT Not Available Start: 11-15-2023 End: 11-15-2023 ambulatory Дмитрий Ríos Facility:[facility] Start: 11-15-2023 End: 11-15-2023 ambulatory PHYSICIAN NO [facility] Work Phone: Start: 11-15-2023 End: 11-15-2023 Discharged Recurring PHYSICIAN NO [facility] [place] Work Phone: Start: 11-12-2023 End: 11-12-2023 ambulatory JULIO C JARRETT Not Available Start: 10-26-2023 End: 10-26-2023 ambulatory ADRIANO PIERCE Not Available Start: 10-11-2023 End: 10-11-2023 ambulatory ROVERTO CARRIZALES Not Available Start: 07-25-2023 End: 07-25-2023 ambulatory PHYSICIAN NO FAMILY Facility:[facility] Start: 07-25-2023 End: 07-25-2023 ambulatory MD Julio C Jarrett Work Phone: [facility] Work Phone: Start: 07-25-2023 End: 07-25-2023 Departed Referred MD Julio C Jarrett Work Phone: [facility]-Lab [facility] [place] Work Phone: Start: 07-23-2023 End: 07-23-2023 ambulatory DUKE MORRIS Facility:[facility] Start: 07-20-2023 End: 07-20-2023 ambulatory Дмитрий Ríos Facility:[facility] Start: 07-20-2023 Registered Recurring MD Julio C Jarrett Work Phone: [facility] [place] Work Phone: Start: 04-29-2023 ambulatory ДМИТРИЙ RÍOS Faci lity:H1 Start: 04-20-2023 Encounter for preprocedural cardiovascular examination ДМИТРИЙ Gaspar [facility] Start: 04-20-2023 Encounter for preprocedural laboratory examination [facility] Chasity [facility] Start: 04-19-2023 End: 04-20-2023 ambulatory ДМИТРИЙ RÍOS Facility:[facility] Start: 04-19-2023 End: 04-20-2023 Encounter for preprocedural cardiovascular examination ДМИТРИЙ RÍOS Facility:[facility] Start: 04-05-2023 End: 04-05-2023 ambulatory Дмитрий Ríos Facility:[facility] Start: 02-15-2023 End: 02-16-2023 ambulatory AMELIE MARKS Facility:[facility] Start: 12-21-2022 Encounter for other preprocedural examination ДМИТРИЙ Gaspar [facility] Start: 12-21-2022 Encounter for preprocedural laboratory examination [facility] Chasity [facility] Start: 12-17-2022 End: 12-17-2022 ambulatory ДМИТРИЙ RÍOS Facility:[facility] Start: 12-15-2022 End: 12-16-[address] JULIO C JARRETT Facility:[facility] Start: 12-15-2022 End: 12-16-2022 Encounter for preprocedural laboratory examination DR JULIO C JARRETT Facility:[facility] Start: 12-09-2022 End: 12-09-[address] JAMILA LEIGH . Facility:[facility] Start: 10-26-2022 ambulatory Facility:[id number] Start: 10-20-2022 End: 10-20-2022 ambulatory MD Julio C Jarrett Work Phone: [facility] Work Phone: Start: 10-20-2022 End: 10-20-2022 Patient encounter procedure MD Julio C Jarrett Work Phone: [facility]-Electrodiagnostics Start: 10-06-2022 End: 10-06-[address] DANIELITO MCCORD . Facility:[facility] Start: 08-18-2022 End: 08-18-2022 ambulatory Abel Natali Other [employer] Other Start: 08-18-2022 Telephone encounter Abel Hurst [facility] Start: 08-11-2022 ambulatory Facility:[id number] Start: 08-11-2022 End: 08-11-2022 Patient encounter procedure MD Julio C Jarrett Work Phone: [facility]-Electrodiagnostics Start: 08-06-2022 End: 08-06-[address] DELONTE RAYO Facility:[facility] Start: 07-22-2022 End: 07-22-2022 Patient encounter procedure MD Julio C Jarrett Work Phone: [facility] 250 Start: 07-22-2022 End: 07-22-2022 ambulatory Abel Wan Other [employer] Other Start: 07-22-2022 Office outpatient vi sit 25 minutes Abel Savage [facility] Start: 06-25-2022 End: 06-25-2022 ambulatory Britney Asia Other [employer] Other Start: 06-25-2022 Office outpatient vi sit 15 minutes Britney Asia [facility] Start: 05-09-2022 End: 05-09-2022 ambulatory Abel Wan Other [employer] Other Start: 05-09-2022 Office outpatient vi sit 15 minutes Abel Savage [facility] Start: 12-11-2021 End: 12-11-2021 ambulatory Britney Asia Other [employer] Other Start: 12-11-2021 Office outpatient vi sit 15 minutes Britney Betancourt [facility] Nephrology [place] Start: 07-05-2018 Patient encounter GIOVANNY MORENO Facility:[id number] Start: 04-05-2018 Patient encounter GIOVANNY MORENO Facility:[id number] Procedures Date Procedure Procedure Detail Performing Clinician Start: 02-25-2024 Colonoscopy MD Julio C Jarrett Work Phone: Start: 01-21-2024 Blood culture for bacteria, including anaerobic screen MD Julio C Jarrett Work Phone: Start: 01-21-2024 Urine culture MD Julio C Jarrett Work Phone: Start: 01-21-2024 MRI of head PHYSICIAN NO FAMILY Start: 01-21-2024 CT angiography of head PHYSICIAN NO FAMILY Start: 01-21-2024 CT angiography of ne ck vessels PHYSICIAN NO FAMILY Start: 01-21-2024 CT of head without contrast PHYSICIAN NO FAMILY Start: 01-21-2024 Plain chest X-ray PHYSI ABHIJIT NO FAMILY Start: 07-22-2022 X-ray of right knee MD Julio C Jarrett Work Phone: Plan of Treatment Date Care Activity Detail Author Start: 02-25-2024 [facility] Start: 01-22-2024 [facility] Start: 01-21-2024 Referral to neurologist [facility] Start: 01-21-2024 Hospital admission [facility] Start: 01-21-2024 Bacteria identified in Urine by Culture [facility] Start: 01-21-2024 Blood culture for bacteria, including anaerobic screen Blood Culture [facility] Start: 01-21-2024 Urine culture Urine Culture [facility] Start: 01-21-2024 MRI of head MR head/brain wo con Fi [facility] Patient Education [facility] Work Phone: Patient referral [facility] Work Phone: Immunizations Immunization Date Immunization Notes Care Provider Fa cility 09-16-2020 influenza, injectable, quadrivalent, preservative free PHYSICIAN NO FAMILY [facility] 09-16-2020 influenza, injectable, quadrivalent, contains preservative Britney Betancourt Other [employer] Other 09-18-2019 influenza, injectable, quadrivalent, preservative free PHYSICIAN NO [place] 09-18-2019 influenza, injectable, quadrivalent, contains preservative Britney Asia Other [employer] Other NEGATED: Highlighted row has not occurred!03-27-2019 influenza, seasonal, injectable Patient Objection Britney Asia Other [employer] Other Payers Date Payer Category Payer Unknown [id number] 2023 Self-pay [id number] 1970 Unknown [id number] 2.16. 840.1.513285.3.579.2.356 1968 Unknown [id number] 2.16. 840.1.249071.3.579.2.356 1968 Unknown [id number] 2.16.84 0.1.817251.3.579.2.593 1968 Unknown [id number] .16.84 0.1.764008.3.579.2.593 1968 Unknown [id number] 2.16.84 0.1.772162.3.579.2.593 1968 Unknown [id number] 2.16.84 0.1.251919.3.579.2.593 1968 Unknown [id number] 2.16.84 0.1.543984.3.579.2.593 1968 Unknown [id number] 2.16.84 0.1.391755.3.579.2.593 1968 Unknown [id number] 2.16.84 0.1.319295.3.579.2.593 1968 Unknown [id number] 2.16.84 0.1.471112.3.579.2.593 1968 Unknown [id number] 2.16.84 0.1.101193.3.579.2.1259 1968 Unknown [id number] 2.16.84 0.1.161589.3.579.2.1259 1968 Unknown [id number] 2.16.84 0.1.338892.3.579.2.125 1968 Unknown [id number] 2.16.84 0.1.181765.3.579.2.9 1968 Unknown [id number] 2.16.84 0.1.071045.3.579.2.1259 1968 Unknown [id number] 2.16.84 0.1.994246.3.579.2.125 1968 Unknown [id number] 2.16.84 0.1.765933.3.579.2.125 1968 Unknown [id number] 2.16.84 0.1.670776.3.579.2.1259 1968 Unknown [id number] 2.16.840 .1.247855.3.579.2.1259 1968 Unknown [id number] 2.16.840 .1.716358.3.579.2.1259 1968 Unknown [id number] 2.16.840 .1.144992.3.579.2.125 1968 Unknown [id number] 2.16.840 .1.719161.3.579.2.125 1968 Unknown [id number] 2.16.840 .1.473420.3.579.2.125 1968 Unknown [id number] 2.16.840 .1.593172.3.579.2.1259 1968 Unknown [id number] 2.16.840. 1.448673.3.579.2.1259 1968 Unknown [id number] 2.16.840. 1.699122.3.579.2.1259 1959 Unknown [id number] 1959 Unknown [id number] 1959 Unknown [id number] 1959 Unknown Unknown [id number] Unknown [id number] 2.16.8 40.1.485124.3.579.2.531 Unknown [id number] 2.16.8 40.1.209102.3.579.2.531 Unknown [id number] 2.16.8 40.1.537788.3.579.2.531 Unknown [id number] 2.16.8 40.1.918616.3.579.2.531 Social History Date Type Detail Facility Tobacco smoking status NHIS Unknown if ever smoked [facility] Start: 1970 Sex Assigned At Female F [facility] Sex Assigned At Sex Assigned At Bir th [place] [email or web address] Other Start: 08-09-2019 End: 02-25-2024 Tobacco smoking status NHIS Never smoked tobacco (finding) [facility] Medical Equipment Procedure Code Equipment Code Equipment Origin al Text Equipment Identifier Dates EGD, with Sweeney pH monitoring device placement ()[id number] FDA Start: 08-09-2019 Goals Date Patient Goal Desired Activity /State Functional Status Date Assessment Result Facility 01-21-2024 Functional status Patient at Baseline [facility] Work Phone: Mental Status Date Assessment Result Facility 01-21-2024 Cognitive function Cognitive Sta tus Patient at Baseline [facility] Work Phone: Clinical Notes 12-11-2021 to 02-25-2024 Note Date & Type Note Facility 02-25-2024 Procedure note [facility] 01-22-2024 Consult note Note Date/Time January 22, 2024 12:18pm [facility] [address] [place] [address] Neurology Consult Note Signed Patient: Yarelis Swenson MR#: [id number] : 1970 Acct:[id number] Age/Sex: 53 / F Adm Date: 4 Loc: 3T Room: [address] [place] [address] Type: ADM IN Attending Dr: Michael Wells MD Copies to: MD Julio C Vides MD Steven Benedict, MD~ HPI Consult Date: 01/22/24 Hand Compositor: Elkin Mcmahon MD Reason for consult: Confusion Consult Narrative HPI: The patient is a 53-year-old female who I was asked to see in neurological consultation for confusion and possible stroke. The patient reportedly had an episode yesterday when she did not feel at her baseline. She states that this episode was associated with lightheadedness and at times left facial droop. Thepatient denies any weakness in her arms or legs. She denies any vision changes or speech difficulties. The patient denies any headaches, nausea, or vomiting associated with the symptoms. The patient does report that she has had a strokewith similar symptoms approximately 1 year ago and was started on aspirin. The patient was treated at the [facility] for these symptoms. This record isnot available for review at the time of consultation. The patient states that she had the symptoms for approximately 2 hours or more. The patient states thatshe feels better but not all the way back to her baseline. The patient did havea noncontrast CT scan of the brain which did not reveal evidence of acute infarct or hemorrhage. The patient was admitted to the hospital for further evaluation. The patient did have a CT angiogram of the head and neck which did reveal narrowings of the posterior cerebral arteries bilaterally most likely atherosclerotic in nature. The patient subsequently had an MRI scan of the brain which did not reveal evidence of an acute infarct or hemorrhage. The patient currently denies any headaches. Review of Systems Review of Systems All other systems reviewed & are negative unless noted below or in HPI [facility] Medical History Neuroma of right leg Rotator cuff arthropathy of right shoulder Arthritis Sleep apnea Migraine Depression Hypertension Hypercholesteremia Surgical History H/O right breast biopsy H/O tubal ligation Family History Father Hypercholesteremia Hypertension Prostate cancer Mother Hypercholesteremia Hypertension Father Cancer Legacy FamHx Problem: Diagnosed with Cancer History of stroke Legacy FamHx Problem: Diagnosed with Stroke Grandparent Legacy FamHx Relation: Maternal Grand Father Grandparent Legacy FamHx Relation: Maternal Grand Mother Grandparent Legacy FamHx Relation: Paternal Grand Father Grandparent Cancer Legacy FamHx Relation: Paternal Grand Mother; Legacy FamHx Problem: Diagnosed with Cancer Hypertension Legacy FamHx Relation: Paternal Grand Mother Legacy FamHx Relation: Paternal Grand Mother Mother Osteoarthritis Social History Smoking Status: Never smoker Substance Use Type: Alcohol Meds Medications and Allergies Allergies acetaminophen [Percocet] Allergy (Unknown, Verified 01/21/24 11:42) vomiting amoxicillin Allergy (Unknown, Verified 01/21/24 11:42) Nausea, rash oxycodone [From Percocet] Allergy (Unknown, Verified 01/21/24 11:42) Nausea, vomiting SOAPS AND PERFUMES Allergy (Unknown, Uncoded 01/21/24 11:42) Rash Home Medications atorvastatin 20 mg tablet 20 mg PO DAILY 03/15/18 [History Confirmed 01/21/24] venlafaxine 150 mg capsule,extended release 24 hr (Effexor XR) 150 mg PO DAILY 03/15/18 [History Confirmed 01/21/24] gabapentin 300 mg capsule 300 mg PO DAILY PRN Restless Leg(S) 08/03/19 [History Confirmed 01/21/24] hydrochlorothiazide 25 mg tablet 25 mg PO DAILY 08/03/19 [History Confirmed 01/21/24] losartan 25 mg tablet 25 mg PO DAILY 08/03/19 [History Confirmed 01/21/24] aripiprazole 10 mg tablet 10 mg PO DAILY 01/21/24 [History Confirmed 01/21/24] hydroxyzine HCl 50 mg tablet 50 mg PO DAILY PRN anxiety 01/21/24 [History Confirmed 01/21/24] pravastatin 40 mg tablet 40 mg PO DAILY 01/21/24 [History Confirmed 01/21/24] sertraline 50 mg tablet 50 mg PO DAILY 01/21/24 [History Confirmed 01/21/24] Exam Physical Exam Vital Signs: Temp Pulse Resp BP Pulse Ox O2 Del Method 97.6 F 85 18 137/84 93 L Room Air 01/22/24 08:00 01/22/24 08:00 01/22/24 08:00 01/22/24 08:00 01/22/24 08:00 01/22/24 08:00 Narrative: Neurological exam: General: The patient is awake alert and oriented. Language is intact. Neurovascular exam: No carotid bruits. Regular rate and rhythm Cranial nerves: Pupils equal round reactive light and accommodation, fundoscopicexam is normal, extraocular movements intact, visual benz are full to confrontation, sensations intact in the face, hearing is intact to finger rub, palate elevates bilaterally, tongue protrudes midline, shoulder shrug is symmetric. Motor: Strength testing is 5 out of 5 in all 4 extremities, deep tendon reflexesare 2+ and symmetric throughout, plantar reflexes flexor, tone is normal throughout. Sensory: Pinprick, light touch, temperature, proprioception are intact in all 4 extremities Cerebellar/gait: No ataxia noted on finger to nose or gait testing. Results - Neuro Laboratory Findings 01/21/24 11:39 01/21/24 11:39 Lab Results: ESR 13 mm/hr (0-29) 01/21/24 15:26 Hemoglobin A1c 5.6 % (4.3-5.6) 01/21/24 15:26 Diagnostic Findings Imaging/Impressions: ITS Impressions Chest X-Ray 01/21/24 11:34 IMPRESSION: No acute process. Impression dictated by: Danielito Haro M.D.01/21/2024 12:19 PM Dictation Location: [place] [address] 01/21/24 11:34 IMPRESSION: There are areas of subtle hypoattenuation predominantly affecting the cortical white matter of the parasagittal frontal lobes. These are of uncertain acuity but may represent edema secondary to acute to subacute ischemia. Further interrogation with MRI is recommended. There is a remote lacunar infarct in the right frontal periventricular white matter. These findings were discussed with Pop Hammonds at 11:52 AM on 01/21/2024. Impression dictated by: Alicia Tian M.D.01/21/2024 11:56 AM Dictation Location: [facility]- Head CTA 01/21/24 11:38 IMPRESSION: There is mild irregular narrowing of the P1 and P2 segments of the posterior cerebral arteries bilaterally which may be atherosclerotic or less likely secondary to vasculitis. No evidence of focal stenosis, aneurysmal dilatation, dissection or occlusion, otherwise. Impression dictated by: Alicia Tian M.D.01/21/2024 12:04 PM Dictation Location: [facility]- Brain MRI 01/21/24 12:49 IMPRESSION: No acute intracranial process. Findings consistent with chronic small vessel ischemic changes. Impression dictated by: Danielito Haro M.D.01/21/2024 5:57 PM Dictation Location: [place] [address] Assessment/Plan (1) Acute CVA (cerebrovascular accident): Assessment/Problem Details: The patient is a 53-year-old female admitted to the hospital with episodes of left facial droop and confusion. The patient is evaluated for possible stroke. The patient does have a history of reported TIA in the past as well as hypertension and hyperlipidemia. The patient did have a CT scan of the brain which did not reveal evidence of acute infarct or hemorrhage. The patient had aCT angiogram of the head and neck which revealed narrowings of the posterior cerebral arteries bilaterally likely atherosclerotic. The patient does not haveany clinical symptoms or signs of vasculitis. The patient did have an MRI scan of the brain which did not reveal evidence of infarct or hemorrhage. The patient has a nonfocal neurological exam. An EEG has been ordered for possible underlying epileptiform activity contributing to the patient's symptoms. The patient was loaded on Plavix and is maintained on 75 mg daily. The patient previously was on aspirin 81 mg daily. The patient would benefit from continuedscreening and treatment of stroke risk factors including hypertension, hyperlipidemia, diabetes mellitus. I agree with continuing Plavix 75 mg daily for secondary stroke prevention. I counseled the patient on stroke signs and symptoms and advised to go to the emergency room should she develop with the symptoms. I will await the EEG and make further recommendations based upon the patient's clinical course. Documented By: Elkin Mcmahon MD 01/22/24 1211 Signed By: <Electronically signed by MD Elkin Mcmahon> 01/22/24 1221 [facility] Work Phone: 1(735) 703-431702-23-2024 History and physical note Author Michael Wells [facility] January 21, 2024 5:39pm Note Date/Time January 21, 2024 3:50pm [facility] [address] [place] [address] Hospitalist H&P Signed Patient: Yarelis Swenson MR#: [id number] : 1970 Acct:[id number] Age/Sex: 53 / F Adm Date: 4 Loc: Room: [address] [place] [address] Type: ADM IN Attending Dr: Michael Wells MD Copies to: MD Andrew Vides DO,RES Julio C Jarrett MD~ [facility] DATE OF EXAMINATION: 01/21/24 CHIEF COMPLAINT: Patient droop, abnormal speech HISTORY OF PRESENT ILLNESS: Attending note: I saw the patient personally on the day of encounter. I reviewed the relevant history, and performed the jama elements of the physical examination. I reviewedthe relevant laboratory workup, radiological studies and the current treatment plan. I formulated the plan of care and confirmed it with the resident/student/OCULAR PATHOLOGIST. Patient is a 53-year-old female who initially presented the emergency departmentearlier today with concern of facial droop, abnormal speech and just feeling off. Her friend is present at bedside who helps provide history as he was there for the events. Over the past couple of weeks, patient states that she has just felt generally off and not like herself. However, today around 1200 she began having difficulties with speech. She goes on to explain that she knewwhat words she wanted to say, but was unable to say them. Her friend at bedsideconfirms that she was stuttering and having difficulty getting speech out. Additionally, her friend at bedside notes that he believes he saw the entire left side of her face drooping which prompted them to seek care in the emergencydepartment. Of note, patient states she has some left eye droop this been present for couple of months. Upon my evaluation the patient on the medical floor, she is awake alert laying comfortable in no acute distress. She states this episode lasted for about 2 hours until resolved. She states she is starting to feel better at this point, but does still have this general sense of feeling unwell. Denies any chest pain, shortness of breath, visual changes, abdominal pain, nausea, vomiting. 10 point review of systems negative except as noted above. Past medical history: TIA Sleep apnea Hypertension Hyperlipidemia Depression Restless leg General: Awake, A&O x 3, pleasant, cooperative, well nourished HENT: NC, AT. There is slight drooping of the right side of the mouth and of the left eye Eyes: No scleral icterus. PERRL, EOMI Neck: Supple Cardio: RRR, no murmurs, rubs or gallops Respiratory: CTAB, no wheezes rhonchi or rales. No evidence of respiratory distress GI: Soft, nontender, nondistended Neuro: CN II-XII intact. Normal [id number] testing bilaterally. Normal sensation to the bilateral upper and lower extremities. Strength 5/5 bilateral upper and lower extremities. Intermittently, the patient will have episodes of stuttering speech/possible aphasia but generally her speech is normal Psych: Affect, movements normal. Mood congruent Assessment and plan: 1. Acute ischemic stroke CT of the head performed the emergency room and showed areas of subtle hypoattenuation affecting the cortical white matter the parasagittal frontal lobes which are of uncertain acuity but may be secondary to acute/subacute ischemia CTA of the head did show mild irregular narrowing of the P1 and P2 segments of the posterior cerebral arteries bilaterally Given her symptoms and imaging, I am highly suspicious for an acute CVA Will obtain echo with bubble study and MRI Will check lipids, A1c, TSH, blood cultures and inflammatory markers given her general sense of feeling unwell over the past couple of weeks Will give patient loading dose of Plavix and then 75 mg daily thereafter Neurology consulted Nilesh for DVT prophylaxis Regular diet Full code [facility] Medical History Neuroma of right leg Rotator cuff arthropathy of right shoulder Arthritis Sleep apnea Migraine Depression Hypertension Hypercholesteremia Surgical History H/O right breast biopsy H/O tubal ligation Family History Father Hypercholesteremia Hypertension Prostate cancer Mother Hypercholesteremia Hypertension Father Cancer Legacy FamHx Problem: Diagnosed with Cancer History of stroke Legacy FamHx Problem: Diagnosed with Stroke Grandparent Legacy FamHx Relation: Maternal Grand Father Grandparent Legacy FamHx Relation: Maternal Grand Mother Grandparent Legacy FamHx Relation: Paternal Grand Father Grandparent Cancer Legacy FamHx Relation: Paternal Grand Mother; Legacy FamHx Problem: Diagnosed with Cancer Hypertension Legacy FamHx Relation: Paternal Grand Mother Legacy FamHx Relation: Paternal Grand Mother Mother Osteoarthritis Social History Smoking Status: Never smoker Substance Use Type: Alcohol Meds Medications and Allergies Allergies acetaminophen [Percocet] Allergy (Unknown, Verified 01/21/24 11:42) vomiting amoxicillin Allergy (Unknown, Verified 01/21/24 11:42) Nausea, rash oxycodone [From Percocet] Allergy (Unknown, Verified 01/21/24 11:42) Nausea, vomiting SOAPS AND PERFUMES Allergy (Unknown, Uncoded 01/21/24 11:42) Rash Home Medications atorvastatin 20 mg tablet 20 mg PO DAILY 03/15/18 [History Confirmed 01/21/24] venlafaxine 150 mg capsule,extended release 24 hr (Effexor XR) 150 mg PO DAILY 03/15/18 [History Confirmed 01/21/24] gabapentin 300 mg capsule 300 mg PO DAILY PRN Restless Leg(S) 08/03/19 [History Confirmed 01/21/24] hydrochlorothiazide 25 mg tablet 25 mg PO DAILY 08/03/19 [History Confirmed 01/21/24] losartan 25 mg tablet 25 mg PO DAILY 08/03/19 [History Confirmed 01/21/24] aripiprazole 10 mg tablet 10 mg PO DAILY 01/21/24 [History Confirmed 01/21/24] hydroxyzine HCl 50 mg tablet 50 mg PO DAILY PRN anxiety 01/21/24 [History Confirmed 01/21/24] pravastatin 40 mg tablet 40 mg PO DAILY 01/21/24 [History Confirmed 01/21/24] sertraline 50 mg tablet 50 mg PO DAILY 01/21/24 [History Confirmed 01/21/24] Exam Physical Exam Vital Signs: Temp Pulse Resp BP Pulse Ox O2 Del Method 97.9 F 63 20 141/82 H 96 Room Air 01/21/24 14:16 01/21/24 14:16 01/21/24 14:16 01/21/24 14:16 01/21/24 14:16 01/21/24 14:16 Results Lab Results Labs: Laboratory Last Values Corrected WBC 7.8 X10E3/uL (3.8-11.6) 01/21/24 11:39 Uncorrected WBC Count 7.8 x10E3/uL (3.8-11.6) 01/21/24 11:39 RBC 4.51 X10E6/uL (3.60-5.00) 01/21/24 11:39 Hgb 13.4 g/dL (11.8-15.4) 01/21/24 11:39 Hct 39.3 % (34.0-46.4) 01/21/24 11:39 MCV 87.2 fl (80-100) 01/21/24 11:39 MCH 29.7 pg (24.7-34.3) 01/21/24 11:39 MCHC 34.0 g/dL (32.0-35.0) 01/21/24 11:39 RDW 13.9 % (11.9-15.3) 01/21/24 11:39 Plt Count 377 x10E3/uL (150-450) 01/21/24 11:39 MPV 6.7 fl (6.3-10.7) 01/21/24 11:39 Neut % (Auto) 66.3 % (.) 01/21/24 11:39 Lymph % (Auto) 25.9 % (.) 01/21/24 11:39 Gilliam % (Auto) 5.8 % (.) 01/21/24 11:39 Eos % (Auto) 1.4 % (.) 01/21/24 11:39 Baso % (Auto) 0.6 % (.) 01/21/24 11:39 Nucleat RBC Rel Count 0.1 /100 WBC (0-0.5) 01/21/24 11:39 Neut # (Auto) 5.2 x10E3/uL (1.8-7.7) 01/21/24 11:39 Lymph # (Auto) 2.0 x10E3/uL (1.00-4.8) 01/21/24 11:39 Gilliam # (Auto) 0.5 x10E3/uL (0.0-0.8) 01/21/24 11:39 Eos # (Auto) 0.1 x10E3/uL (0.0-0.45) 01/21/24 11:39 Baso # (Auto) 0.0 x10E3/uL (0.0-0.2) 01/21/24 11:39 Monocyte Dist Width 18.28 % (0.00-20.00) 01/21/24 11:39 PT 11.2 Seconds (9.0-12.9) 01/21/24 11:39 INR 1.0 01/21/24 11:39 APTT 28.8 Seconds (25.1-36.5) 01/21/24 11:39 PHA Creatinine Clear 78.64 01/21/24 11:39 Sodium 140 mmol/L (136-145) 01/21/24 11:39 Potassium 3.3 mmol/L (3.5-5.1) L 01/21/24 11:39 Chloride 105 mmol/L (98-107) 01/21/24 11:39 Carbon Dioxide 27.3 mmol/L (21.0-31.0) 01/21/24 11:39 Anion Gap 11.0 mEq/L (6.0-15.0) 01/21/24 11:39 BUN 7 mg/dL (7-25) 01/21/24 11:39 Creatinine 0.83 mg/dL (0.60-1.20) 01/21/24 11:39 POC Creatinine 0.9 mg/dl (0.6-1.3) 01/21/24 11:41 POC Estimated GFR (eGFR) > 60.0 01/21/24 11:41 Est GFR (CKD-EPI) > 60.0 mL/Min 01/21/24 11:39 Glucose 89 mg/dL (70-100) 01/21/24 11:39 POC Glucose 103 mg/dl 01/21/24 11:16 POC Glucose Comment Glu2: cleaned meter 01/21/24 11:16 Calcium 9.5 mg/dL (8.6-10.3) 01/21/24 11:39 Total Bilirubin 0.6 mg/dl (0.3-1.0) 01/21/24 11:39 Direct Bilirubin 0.10 mg/dL (0.03-0.18) 01/21/24 11:39 Indirect Bilirubin 0.5 mg/dL 01/21/24 11:39 AST 16 U/L (13-39) 01/21/24 11:39 ALT 15 U/L (7-52) 01/21/24 11:39 Alkaline Phosphatase 61 U/L (34-104) 01/21/24 11:39 Total Creatine Kinase 60 U/L (30-223) 01/21/24 11:39 Troponin I High Sens 4.2 pg/mL (0.0-15.0) 01/21/24 11:39 Total Protein 7.3 gm/dL (6.4-8.9) 01/21/24 11:39 Albumin 4.4 gm/dL (3.5-5.7) 01/21/24 11:39 Globulin 2.9 gm/dL 01/21/24 11:39 Albumin/Globulin Ratio 1.5 01/21/24 11:39 Urine Color Yellow (Yellow) 01/21/24 12:01 Urine Appearance Cloudy (Clear) A 01/21/24 12:01 Urine pH 7.5 (5.0-9.0) 01/21/24 12:01 Ur Specific [place] 1.050 (1.001-1.030) H 01/21/24 12:01 Urine Protein Negative mg/dL (Negative) 01/21/24 12:01 Urine Glucose (UA) Normal mg/dL (Normal) 01/21/24 12:01 Urine Ketones Negative (Negative) 01/21/24 12:01 Urine Occult Blood Negative (Negative) 01/21/24 12:01 Urine Nitrite Negative (Negative) 01/21/24 12:01 Urine Bilirubin Negative (Negative) 01/21/24 12:01 Urine Urobilinogen Normal mg/dL (Normal) 01/21/24 12:01 Ur Leukocyte Esterase 3+ (Negative) H 01/21/24 12:01 Urine RBC 3-4 /HPF (0-4) 01/21/24 12:01 Urine WBC 10-19 /HPF (0-4) H 01/21/24 12:01 Ur Squamous Epith Cells Innumerable /HPF (0-2) H 01/21/24 12:01 Urine Bacteria 2+ (None Seen) H 01/21/24 12:01 Hyaline Casts None seen /LPF (0-1) 01/21/24 12:01 Other Casts None seen /LPF (None Seen) 01/21/24 12:01 Ethyl Alcohol < 10 mg/dL 01/21/24 11:39 % Ethyl Alcohol TNP 01/21/24 11:39 Assessment & Plan Assessment/Plan (1) Acute CVA (cerebrovascular accident): Plan As above IP vs OBS Justification Based on differential dx, clinical care plan, and risk of adverse events, if untreated, in my clinical judgement this patient requires an acute care setting as: INPATIENT because of an expectation of an over 2 midnight stay. Estimated length of stay (# of days): 3 Documented By: Andrew Cordero DO, RES 01/21/24 153 9 Signed By: <Electronically signed by DO DUSTIN Cordero> 01/21/24 1550 <Electronically signed by Michael Wells MD> 01/21/24 1739 [facility] Work Phone: [phone] 915-768408-24-2022 Evaluation note* Encounter Date Diagnosis Assessment Notes Treatment Notes Treatment Clinical Notes Jun, Acute pain of right knee [...] She understands and agrees with the plan. [employer] 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 She has unremarkable w/u for George disease, primary hyperaldosteronism or pheochromocytoma. May, Chronic [...] risk of hypokalemia including cardiac arrhythmias and [employer] Other 06-11-2022 Evaluation note* Encounter Date Diagnosis Assessment Notes Treatment Notes Treatment Clinical Notes Apr, Piriformis syndrome of left side [...] symptoms do not improve in 7 days. [employer] 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 She has unremarkable w/u for George disease, primary hyperaldosteronism or pheochromocytoma. Nov, Chronic [...] within normal limits. I prescribed oral ergocalciferol. [employer] Other Evaluation noteNo assessment information available [facility] Work Phone: Evaluation noteNo InformationNort [email or web address] Other Evaluation note* Diagnosis Onset Date Resolution Status Acute CVA (cerebrovascular accident) acute [facility] Work Phone: Evaluation note* Diagnosis Onset Date Resolution Status Acute CVA (cerebrovascular accident) resolved [facility] Work Phone: Evaluation note* Diagnosis Onset Date Resolution Status Acute glossitis noneactive [facility] Work Phone: History and physical note Author Ayaan Pulido [facility] February 25, 2024 12:31pm Note Date/Time February 25, 2024 12: 31pm [facility] [address] [place] [address] Gastroenterology H&P Signed Patient: Yarelis Swenson MR#: [id number] : 1970 Acct:[id number] Age/Sex: 54 / F Adm Date: 4 Loc: Room: Type: [facility] Attending Dr: Ayaan Pulido MD Copies to: MD Julio C Santos MD~ Date of Service: 02/25/2024 HISTORY & PHYSICAL: Patient's history with special attention to the cardiovascular, pulmonary systems and the current problem was reviewed with the patient immediately prior to the procedure. Present medications and doses reviewed in the EMR. Allergies and pertinent laboratory tests were also reviewedat this time in the EMR. The physical examination, as below, was then performed. Indication, assessment and HPI: 54-year-old female with history of colonic polyps here for surveillance colonoscopy Family history of GI malignancy? No PHYSICAL EXAMINATION General appearance: Pleasant, NAD Skin: No jaundice Head: NC/AT Eyes: Anicteric Neck: Supple Lungs: Normal respiratory effort, no use of accessory muscles Abdomen: Soft, nondistended Neuro: Ox3. REVIEW OF SYSTEMS Constitutional: Denies malaise, fevers Cardiovascular: Denies chest pain, palpitations Respiratory: Denies shortness of breath, wheezing Gastrointestinal: As per HPI Genitourinary: Denies dysuria, polyuria Musculoskeletal: Denies joint swelling, joint stiffness Neurological: Denies confusion, numbness, tingling Endocrine: Denies fatigue Written informed consent obtained from the patient. Risks (including but not limited to perforation, infection, bloating, bleeding, need for emergent surgeryand loss of life), benefits and alternatives explained and questions answered. The patient verbalized understanding. Based on history patient is an appropriate candidate for the procedure. Ayaan Pulido M.D. Documented By: Ayaan Pulido MD 02/25/24 1231 Signed By: <Electronically signed by Ayaan Pulido MD> 02/25/24 1231 [facility] Work Phone: History general Narrative - Reported* Type Description Date Medical History Hyperlipidemia Medical History Hypertension Medical History Asthma Medical History NOSE BLEED Medical History TIFFANIE Medical History TIA Medical History HIATAL HERNIA Medical History Tubular adenoma of colon Medical History Family history of gastrointestin al tract malignancy Medical History Hemorrhoids without complication Medical History FAMILY HX COLONIC POLYPS Medical History High cholesterol Medical History Hypertension, essential, benign Medical History Major depressive disorder, singl e episode, moderate Medical History Generalized anxiety disorder [...] as traumatic Medical History Arthritis of right acromioclavic ular joint Medical History Osteoarthritis of hand, left [...] rotator cuff 07/2020 Hospitalization History see above [employer] Other Summary Purpose Family History No Family History Records Found Relationship Condition Age at Onset Recorded Date/T quang father Hypercholesterolemia Unknown Hypertension Unknown Malignant neoplasm of prostate Unknown Not Specified Hypercholesterolemia Unknown Relationship Condition Age at Onset Recorded Date/T quang father Hypercholesterolemia Unknown Hypertension Unknown Malignant neoplasm of prostate Unknown Not Specified Hypercholesterolemia Unknown father Malignant neoplasm Unknown History of stroke Unknown grandparent Unknown grandparent Malignant neoplasm Unknown Unknown Not Specified Osteoarthritis Unknown Relationship Condition Age at Onset Recorded Date/T quang father Malignant neoplasm of prostate Unknown Hypercholesterolemia Unknown Hypertension Unknown History of stroke Unknown Not Specified Hypercholesterolemia Unknown Osteoarthritis Unknown grandparent Unknown Malignant neoplasm Unknown Advance Directives No Advanced Directives Records [...] right knee, initial encounter (S89.91XA) Referral Organization [facility] [place] Referring Provider First Name Abel Referring Provider Last Name Savage Referring Provider Specialty Nurse Shay lin Referred Organization [facility] Referred Address [address],[place], [place],[address] Referred Provider Specialty Sport Medici ne Referral Priority Routine Chief Complaint and Reason for Visit Chief Complaint M25.561 Chief Complaint M25.561 R07.9 Chief Complaint R07.9 R55 Chief Complaint elft ankle strenghte sara Chief Complaint LEFT ACHILLES TENDON Chief Complaint LEFT ACHILLES TENDON L Achilles tendon tear dizzy facial droop Chief Complaint LEFT ACHILLES TENDON L Achilles tendon tear dizzy facial droop Reason for Visit Acute CVA (cerebrova scular accident) Chief Complaint dizzy facial droop dizzy facial droop L Achilles tendon tear hx of colon polyps hx of colon polyps Reason for Visit Acute CVA (cerebrova scular accident) Chief Complaint hx of colon polyps hx of colon polyps L Achilles tendon tear tongue pain Reason for Visit Acute glossitis Additional Source Comments INFORMATION SOURCE (unrecogn ized section and content) DATE CREATED AUTHOR 06/28/2018 [facility] DATE CREATED AUTHOR AUTHOR'S ORGANIZ ATION 2020 [facility] DATE CREATED AUTHOR AUTHOR'S ORGANIZ ATION 04/20/2020 [facility] DATE CREATED AUTHOR AUTHOR'S ORGANIZ ATION 10/19/2022 [facility] dical Specialist DATE CREATED AUTHOR AUTHOR'S ORGANIZ ATION 11/05/2022 [facility] DATE CREATED AUTHOR AUTHOR'S ORGANIZ ATION 05/11/2023 [facility] DATE CREATED AUTHOR AUTHOR'S ORGANIZ ATION 07/24/2023 [facility] DATE CREATED AUTHOR AUTHOR'S ORGANIZ ATION 02/29/2024 [facility] DATE CREATED AUTHOR AUTHOR'S ORGANIZ ATION 05/09/2024 [facility] dical Specialists EPIC REASON FOR VISIT (unrecogniz ed section and content) CKD and Vit D deficiencyLEFT HIP PAINCKD and HTNRIGHT KNEE PAINOrthopedic Referral Update Care Teams (unrecognized sec tion and content) Team Status: Inactive Member Role Status Teri Jarrett MD Primary Care Provider, Attending Prov ider Active Team Status: Active Member Role Status Dates Julio C Jarrett MD Primary Care Provider Active Team Status: Inactive Member Role Status Dates Julio C Jarrett MD Primary Care Provider Active TOMAS CervantesC Attending Provider Activ e Team Status: Active Member Role Status Dates Jluio C Jarrett MD Primary Care Provider Active Дмитрий Ríos DPM MS Attending Provider Active Team Status: Inactive Member Role Status Dates Duke Morris MD Attending Provider Active Team Status: Active Member Role Status Dates PHYSICIAN NO FAMILY Primary Care Provider Active Team Status: Inactive Member Role Status Dates PHYSICIAN NO FAMILY Primary Care Provider Active Start: November 15, 2023 End: November 15, 2023 Дмитрий Ríos DPM MS Attending Provider Active Start: November 15, 2023 End: November 15, 2023 Team Status: Active Member Role Status Teri Ríos DPM MS Attending Provider Active Start: January 21, 2024 Julio C Jarrett MD Primary Care Provider Active St art: January 21, 2024 Team Status: Active Member Role Status Teri Jarrett MD Primary Care Provider Active St art: January 21, 2024 Pop Marie PA-C Emergency Provider Active Start: January 21, 2024 Michael Wells MD Admit Provider, Attkevin nding Provider Active Start: January 21, 2024 Team Status: Inactive Member Role Status Teri Jarrett MD Primary Care Provider Active St art: January 21, 2024 End: January 22, 2024 Pop Marie PA-C Emergency Provider Active Start: January 21, 2024 End: January 22, 2024 Michael Wells MD Admit Provider, Atte nding Provider Active Start: January 21, 2024 End: January 22, 2024 Gina Wu Other Provider Active Start: January 21, 2024 End: January 22, 2024 Isela Snider DO Other Provider Active Start: January 21, 2024 End: January 22, 2024 Elkin Mcmahon MD Other Provider Active Start : January 21, 2024 End: January 22, 2024 Ru Pearce DO Other Provider Active Start: January 21, 2024 End: January 22, 2024 JULIUS Gomes Other Provider Active Start: January 21, 2024 End: January 22, 2024 Arturo Sow DO Other Provider Active Start: January 21, 2024 End: January 22, 2024 Arlene Villanueva APRN Other Provider Active St art: January 21, 2024 End: January 22, 2024 VANESSA Arriaga Other Provider Active Sta rt: January 21, 2024 End: January 22, 2024 Chely Cordon APRN-CMM PROGRAMMER-C Other Provider Active Start: January 21, 2024 End: January 22, 2024 Team Status: Active Member Role Status Dates Julio C Jarrett MD Primary Care Provider Active St art: January 22, 2024 DANIELA EtienneC Emergency Provider Active Start: January 22, 2024 Michael Wells MD Admit Provider, Atte nding Provider, Other Provider Active Start: January 22, 2024 Gina Wu Other Provider Active Start: January 22, 2024 Isela Snider DO Other Provider Active Start: January 22, 2024 Elkin Mcmahon MD Other Provider Active Start : January 22, 2024 Ru Pearce DO Other Provider Active Start: January 22, 2024 JULIUS Gomes Other Provider Active Start: January 22, 2024 Arturo Sow DO Other Provider Active Start: January 22, 2024 Arlene Villanueva APRN Other Provider Active St art: January 22, 2024 VANESSA Arriaga Other Provider Active Sta rt: January 22, 2024 BEATRICE ShafferCMM PROGRAMMER-C Other Provider Active Start: January 22, 2024 Team Status: Active Member Role Status Dates Дмитрий Ríos DPM MS Attending Provider Active Start: February 21, 2024 Julio C Jarrett MD Primary Care Provider Active St art: February 21, 2024 Team Status: Inactive Member Role Status Dates Julio C Jarrett MD Primary Care Provider Active St art: February 25, 2024 End: February 25, 2024 Ayaan Pulido MD Attending Provider Active Start: February 25, 2024 End: February 25, 2024 Team Status: Active Member Role Status Dates Julio C Jarrett MD Primary Care Provider Active St art: February 25, 2024 Ayaan Pulido MD Attending Provider, Other Provider Act kelly Start: February 25, 2024 Team Status: Active Member Role Status Dates Дмитрий Ríos DPM MS Attending Provider Active Start: April 28, 2024 Julio C Jarrett MD Primary Care Provider Active St art: April 28, 2024 Team Status: Inactive Member Role Status Dates Julio C Jarrett MD Primary Care Provider Active St art: April 30, 2024 End: April 30, 2024 Adelaide Ricardo APRN Attending Provider Active Sta rt: April 30, 2024 End: April 30, 2024 Goals (unrecognized section and content) Goals may [...] BE BASED ON THE PRIMARY CLINICAL RECORDS. [employer] [facility]. provides no warranty or guarantee of the accuracy or completeness of information in this document.
== END 2024-05-18 09:30 | disposition home or self-care (01) ==
LOC: EC 09:29
PROVIDERS: PCP Internal Medicine; Visit Provider Physician Assistant
DX: M79.672 Pain in left foot (principal)
CPT/HCPCS: 73630

== ENCOUNTER 2024-06-14 10:54 | Outpatient (OUT) | payer OTHER, SELFPAY ==
--- NOTE | 2024-06-14 | XR_ITS ---
The [address] [address] Patient Name: LUIS FIGUEROA MRN: [id number] date: 1970 Sex: F Assigned Patient Location: Current Patient Location: Accession/Order Number: [id number] Exam Date: 06/14/2024 11:00 Report Date: 06/15/2024 05:05 At the request of: ДМИТРИЙ RÍOS Procedure: XR ankle LT min 3V PROCEDURE: XR ankle LT min 3V, XR foot LT min 3V HISTORY: LEFT ANKLE PAIN , heel pain COMPARISON: XR left ankle and foot 05/05/2024 FINDINGS: BONES:Evidence of prior Achilles tendon repair. Prominent degenerative enthesophytes at the plantar aponeurosis and Achilles tendon insertions into the calcaneus. Mild narrowing/degenerative changes of the first metatarsophalangeal joint. SOFT TISSUES:No visible soft tissue swelling. EFFUSION:None visible. OTHER: Negative. XR/XR ankle LT min 3V IMPRESSION: 1. Stable degenerative changes and postsurgical changes. No appreciable change or acute abnormality. Electronically authenticated by: PRISCILLA WILKES Date: 06/15/2024 05:05
--- NOTE | 2024-06-14 | XR_ITS ---
The [address] [address] Patient Name: LUIS FIGUEROA MRN: [id number] date: 1970 Sex: F Assigned Patient Location: Current Patient Location: Accession/Order Number: [id number] Exam Date: 06/14/2024 11:00 Report Date: 06/15/2024 05:05 At the request of: ДМИТРИЙ RÍOS Procedure: XR foot LT min 3V PROCEDURE: XR ankle LT min 3V, XR foot LT min 3V HISTORY: LEFT ANKLE PAIN , heel pain COMPARISON: XR left ankle and foot 05/05/2024 FINDINGS: BONES:Evidence of prior Achilles tendon repair. Prominent degenerative enthesophytes at the plantar aponeurosis and Achilles tendon insertions into the calcaneus. Mild narrowing/degenerative changes of the first metatarsophalangeal joint. SOFT TISSUES:No visible soft tissue swelling. EFFUSION:None visible. OTHER: Negative. XR/XR foot LT min 3V IMPRESSION: 1. Stable degenerative changes and postsurgical changes. No appreciable change or acute abnormality. Electronically authenticated by: PRISCILLA WILKES Date: 06/15/2024 05:05
== END 2024-06-14 10:55 | disposition home or self-care (01) ==
PROVIDERS: PCP Internal Medicine; Visit Provider Podiatrist Foot & Ankle Surgery
DX: S86.012D Strain of left Achilles tendon, subsequent encounter (principal); M79.672 Pain in left foot
CPT/HCPCS: 73610; 73630

== ENCOUNTER 2024-12-28 10:47 | Emergency (ER) | payer OTHER, SELFPAY ==
[2024-12-28] VITALS (14 sets, daily range): BP systolic 136–145; BP diastolic 90–97; PULSE 102–108; TEMP 37.8; O2SAT 96–99; BMI 34.9
--- NOTE | 2024-12-28 10:57 | XR_ITS ---
The [address] [address] Patient Name: LUIS FIGUEROA MRN: [id number] date: 1970 Sex: F Assigned Patient Location: ER Current Patient Location: ER Accession/Order Number: [id number] Exam Date: 12/28/2024 11:07 Report Date: 12/28/2024 11:42 At the request of: YEN LUNA Procedure: XR chest 1V EXAMINATION: XR chest 1V HISTORY: cough COMPARISON: 10/06/2022 TECHNIQUE: AP portable FINDINGS: LUNGS: No significant pulmonary parenchymal abnormalities. VASCULATURE: No increased pulmonary vasculature. PLEURA: No pneumothorax, effusion, or pleural thickening. CARDIAC: No cardiomegaly or cardiac silhouette abnormality. MEDIASTINUM: No visible mass or adenopathy. BONES: No fracture or visible bone lesion. OTHER: Negative. XR/XR chest 1V IMPRESSION: No acute cardiopulmonary process Electronically authenticated by: WILLIAM CLAUDIO Date: 12/28/2024 11:42
--- NOTE | 2024-12-28 10:57 | ECG_ITS ---
The [facility] Test Date: 2024-12-28 Pat Name: LUIS FIGUEROA Department: Room: - Gender: Female Director International: : 1970 Requested By: Order Number: [id number] Reading MD: MARGO FRENCH Measurements Intervals Ava Rate: 101 P: 25 MO: 170 QRS: -39 QRSD: 78 T: 97 QT: 322 QTc: 380 Interpretive Statements 1120 Sinus tachycardia 6220 Possible left atrial enlargement 7200 Abnormal left axis deviation 9150 abnormal ECG Electronically Signed On 01-01-2025 20:40:33 EST by MARGO FRENCH
--- OUTSIDE RECORDS SUMMARY | 2024-12-28 11:06 | XMS_ITS | CCD ---
Author Organization [facility] Care Team Providers Care Pulp Mill Operator Name Role Phone TRABOULSSI, MOURHAF Unavailable Unavailable VERONA, АНДРЕЙ Unavailable Unavailable TRABOULSSI, MOURHAF Unavailable Unavailable VERONA, АНДРЕЙ Unavailable Unavailable Britney Betancourt Unavailable Abel Wan Unavailable MD Julio C Jarrett Primary Care Provider [phone] VANESSA Wan Attending Provider MD Julio C Jarrett Attending Provider [phone] Abel Hurst Unavailable MD Julio C Jarrett Primary Care Provider MD Julio C Jarrett Attending Provider ДМИТРИЙ RÍOS Attending Unavailable ДМИТРИЙ RÍOS Consulting Unavailable ДМИТРИЙ RÍOS Admitting Unavailable KOLBY, DR BUNCH Primary Care Unavailable ARLENE TORRES Consulting Unavailable KOLBY, DR BUNCH Primary Care Unavailable ДМИТРИЙ RÍOS Attending Unavailable ДМИТРИЙ RÍOS Consulting Unavailable ДМИТРИЙ RÍOS Admitting Unavailable ARLENE TORRES Consulting Unavailable ДМИТРИЙ RÍOS Attending Unavailable ДМИТРИЙ RÍOS Consulting Unavailable ДМИТРИЙ RÍOS Admitting Unavailable KOLBY, DR BUNCH Primary Care Unavailable TAMMY ., IVANIA PEREZ Consulting Unavailable SHANA LUKE Consulting Unavailable GABE MCDANIEL Consulting Unavailable ДМИТРИЙ RÍOS Attending Unavailable ДМИТРИЙ RÍOS Admitting Unavailable KOLBY, DR BUNCH Primary Care Unavailable AMELIE MARKS Admitting Unavailable AMELIE MARKS Attending Unavailable AMELIE MARKS Consulting Unavailable KOLBY, DR BUNCH Primary Care Unavailable JOEY MENEZES Consulting Unavailable PAY ., DR ESTEVES Admitting Unavailable PAY ., DR ESTEVES Consulting Unavailable KOLBY, DR BUNCH Primary Care Unavailable PAY ., DR ESTEVES Attending Unavailable SHELBY ECHAVARRIA Consulting Unavailable GIRMA, DR DELONTE Shannon Admitting Unavailbenjamin RAYO, DR DELONTE Shannon Attending Unavailbenjamin RAYO, DR DELONTE Shannon Consulting Unavailabl e KOLBY, DR BUNCH Primary Care Unavailable GUYS MILLS, DR WILLIAM Cedeno Consulting Unavailable JANNETTE QUINN Consulting Unavailable MARKER ., DR MARINO Admitting Unavailable KOLBY, DR BUNCH Primary Care Unavailable MARKER ., DR MARINO Attending Unavailable MARKER ., DR MARINO Consulting Unavailable LING, SUNSHINE Consulting Unavailable DUKE MORRIS Attending Unavailable MD Julio C Jarrett Primary Care Provider RENAE Ríos Attending Provider MD Duke Morris Attending Provider NO FAMILY, PHYSICIAN Primary Care Provider Unava ilable RENAE Ríos Attending Provider MD Julio C Jarrett Primary Care Provider [phone] LATRICE Marie Emergency Provider MD Michael Wells Admit Provider MD Michael Wells Attending Provider Gina Wu Other Provider Unavailable DO Isela Snider Other Provider MD Elkin Mcmahon Other Provider DO Ru Pearce Other Provider Erinn [facility]- Roverto Other Provider DO Arturo Sow Other Provider MARK Villanueva Other Provider JUN Franco-Mary Ramsay Other Provider MARK Cordon-SHIPPING ORDER CLERK-C Chely Brown Other Provider MD Julio C Jarrett Primary Care Provider LATRICE Marie Emergency Provider MD Michael Wells Admit Provider [phone] MD Michael Wells Attending Provider [phone] Gina Wu Other Provider Unavailable DO Isela Snider Other Provider MD Elkin Mcmahon Other Provider DO Ru Pearce Other Provider Erinn [facility]- Roverto Other Provider DO Arturo Sow Other Provider MARK Villanueva Other Provider [phone] JUN Franco-Mary Ramsay Other Provider MARK Cordon-SHIPPING ORDER CLERK-C Chely Brown Other Provider RENAE Ríos Attending Provider MD Ayaan Pulido Attending Provider MD Julio C Jarrett Primary Care Provider RENAE Ríos Attending Provider RENAE Ríos Attending Provider MD Julio C Jarrett Primary Care Provider MD Julio C Jarrett Primary Care Provider RENAE Ríos Attending Provider Julio C Jarrett MD Primary Care Provider Julio C Jarrett MD Primary Care Provider Дмитрий Ríos DPM Attending Provider Maik Mcmillan DO Attending Provider Дмитрий Ríos Attending Unavailable Julio C Jarrett Primary Care Unavailable Дмитрий Ríos Admitting Unavailable Julio C Jarrett Primary Care Unavailable Дмитрий Ríos Admitting Unavailable Дмитрий Ríos Attending Unavailable Julio C Jarrett Primary Care Unavailable Maik Mcmillan Attending Unavailable Maik Mcmillan Admitting Unavailable Michael Wells Admitting Unavailable Michael Wells Attending Unavailable Julio C Jarrett Primary Care Unavailable Gina Wu Consulting Unavailable Isela Snider Consulting Unavailable Elkin Mcmahon Consulting Unavailable Ru Pearce Consulting Unavailab Roverto Cast Consulting Unavailable Arturo Sow Consulting Unavailable Arlene Villanueva Consulting Unavailable Emily Franco Consulting Unavailable Chely Cordon Consulting Unavailable Julio C Jarrett Primary Care Unavailable Asaad, Imad Admitting Unavailable Asaad, Imad Attending Unavailable Дмитрий Ríos Attending Unavailable Julio C Jarrett Primary Care Unavailable Дмитрий Ríos Admitting Unavailable Gillian-Nossek INFECTION CONTROL COORDINATOR-JUKEBOX CHECKER, Roverto Joseph Unavailable ALL, ROVERTO Joseph Attending Unavailab JULIO C Bob Attending Unavailable JULIO C JARRETT Referring Unavailable GILLIAN-NOSSEK, ROVERTO Joseph Attending Unavailab le GILLIAN-NOSSEK, ROVERTO Joseph Attending Unavailab le DIDION, JACQUIE Allen Attending Unavailable RISALITI, RHIANNON Lind Attending Unavailable JULIO C JARRETT Referring Unavailable PETITTI, MARIA T Cohen Attending Unavailable RISALITI, RHIANNON Lind Referring Unavailable TIMMIS, AURELIANO Brown Attending Unavailable JULIO C JARRETT Referring Unavailable GILLIAN-NOSSEK, ROVERTO Joseph Attending Unavailab le GILLIAN-NOSSEK, ROVERTO Joseph Attending Unavailab JULIO C Bob Referring Unavailable DIDION, JACQUIE Allen Attending Unavailable RISALITI, RHIANNON Lind Attending Unavailable KOLBY, JULIO C Allen Referring Unavailable GILLIAN-NOSSEK, ROVERTO Joseph Attending Unavailab le Unavailable Unavailable Unavailable Allergies Allergy Classification Reported Allergen(s) Allergy Type Date of Onset Reaction(s) Facility (20 sources) Amoxicillin; Translations: [amoxicillin] Drug Allergy 03-15-20 18 rash, Hives [facility] (20 sources) oxyCODONE Drug Allergy 03-15-20 18 GI intolerance [facility] (5 sources) Acetaminophen / oxyCODONE Drug Allergy vomiting [employer] Other (14 sources) SOAPS AND PERFUMES Propensity to adverse reactions 01-21-20 24 Unknown, Rash [facility] (1 source) Acetaminophen / oxyCODONE Drug Allergy 11-20-20 [facility] (20 sources) Acetaminophen Drug Allergy 01-21-20 GI intolerance [facility] (14 sources) buPROPion Drug Allergy 04-02-20 [facility] Medications Current Medications Medication Drug Class(es) Dates Sig (Normalized) Sig (Original) Acetaminophen (14 sources) Acetaminophen (TYLENOL 8 HOUR PO) Tylenol Active ARIPiprazole 5 mg oral tablet (20 sources) Atypical Antipsychotic Start: 04-30-2024 End: 10-12-2024 take 1 tablet by mouth once daily ARIPiprazole (Abilify) 5 MG tablet Indications: Bipolar affective disorder, currently depressed, moderate (CMS/HCC) Take 1 tablet (5 mg) by mouth Daily 30 tablet 2 09/12/2024 Active Start: 04-30-2024 Aripiprazole A ctive MG PO April 30, 2024 12:00am Start: 01-21-2024 End: 04-30-2024 take 1 tablet by mouth once daily Aripiprazole 10 mg tablet Discontinued 10 MG PO Daily January 21, 2024 12:00am April 30, 2024 11:03am take 1 tablet by sobia th every twenty-four hours Abilify 5 MG 1 tablet Orally Once a day Active aspirin 81 mg delayed release oral tablet (20 sources) Platelet Aggregation Inhibitor, Nonsteroidal Anti-inflammatory Drug Start: 01-22-2024 take 1 tablet by mouth once daily Aspirin Low Dose 81 MG EC tablet Take 81 mg by mouth Daily 01/22/2024 Active atorvastatin 80 mg oral tablet (20 sources) HMG-CoA Reductase Inhibitor Start: 01-22-2024 take 1 tablet by mouth once daily atorvastatin (Lipitor) 80 MG tablet Take 80 mg by mouth Daily 01/22/2024 Active Start: 03-15-2018 End: 01-22-2024 take 1 tablet by mouth once daily Atorvastatin 20 mg tablet Discontinued 20 MG PO Daily March 14, 2018 11:00pm January 22, 2024 2:20pm 24 hr buPROPion hydrochloride 150 mg extended release oral tablet (2 sources) Aminoketone take 1 tablet by mouth every twenty-four hours Wellbutrin XL 150 MG 1 tablet in the morning Orally Once a day Active clopidogrel 75 mg oral tablet (20 sources) P2Y12 Platelet Inhibitor Start: take 1 tablet by mouth once daily clopidogrel (Plavix) 75 MG tablet Take 75 mg by mouth Daily 01/22/2024 Active diphenhydrAMINE 12.5 MG/5ML elixir 50 mg, aluminum-magnesium hydroxide-simethicone 400-400-40 MG/5ML suspension 20 mL, lidocaine 2 % solution 20 mL (10 sources) Start: End: take 5 mL by mouth every six hours diphenhydrAMINE 12.5 MG/5ML elixir 50 mg, aluminum-magnesium hydroxide-simethicone 400-400-40 MG/5ML suspension 20 mL, lidocaine 2 % solution 20 mL Indications: Burning mouth syndrome , Tongue pain Swish and spit 5 mL every 6 (six) hours if needed for mucositis 1 each 3 09/15/2024 11/17/2024 Discontinued Start: 09-15-2024 take 5 mL by mouth e very six hours diphenhydrAMINE 12.5 MG/5ML elixir 50 mg , aluminum-magnesium hydroxide-simethicone 400-400-40 MG/5ML suspension 20 mL, lidocaine 2 % solution 20 mL Indications: Burning mouth syndrome , Tongue pain Swish and spit 5 mL every 6 (six) hours if needed for mucositis 1 each 3 09/15/2024 Active Start: 05-05-2024 End: 09-15-2024 diphenhydrAMINE 12.5 MG/5ML elixir 50 mg, aluminum-magnesium hydroxide-simethicone 400-400-40 MG/5ML suspension 20 mL, lidocaine 2 % solution 20 mL Indications: Tongue pain Swish and spit 5 mL every 6 (six) hours if needed for mucositis 1 each 1 05/05/2024 09/15/2024 Discontinued (Reorder) Start: 05-05-2024 diphenhydrAMIN E 12.5 MG/5ML elixir 50 mg, aluminum-magnesium hydroxide-simethicone 400-400-40 MG/5ML suspension 20 mL, lidocaine 2 % solution 20 mL Indications: Tongue pain Swish and spit 5 mL every 6 (six) hours if needed for mucositis 1 each 1 05/05/2024 Active ergocalciferol 1.25 mg oral capsule (2 sources) Provitamin D2 Compound Start: 12-11-2021 take 1 capsule by mouth every week Ergocalciferol 1.25 MG (47187 UT) 1 capsule Orally Q week for 90 day(s) Nov, Active ezetimibe 10 mg oral tablet (20 sources) Dietary Cholesterol Absorption Inhibitor Start: 12-08-2024 take 1 tablet by mouth once daily ezetimibe (Zetia) 10 MG tablet Indications: Pure hypercholesterolemia (CMS/HCC) TAKE 1 TABLET BY MOUTH ONCE DAILY 90 tablet 3 12/08/2024 Active Start: 02-25-2024 End: 12-02-2024 take 1 tablet by mouth once daily Ezetimibe 10 mg tablet Active 10 MG PO Daily February 24, 2024 11:00pm famotidine 20 mg oral tablet (19 sources) Histamine-2 Receptor Antagonist take 1 tablet by mouth once daily as needed famotidine (Pepcid) 20 MG tablet Take 20 mg by mouth 1 (one) time each day at the same time. PRN Active fluocinonide 0.5 mg/ml topical solution (14 sources) Corticosteroid Start: 05-25-20 fluocinonide (Lidex) 0.05 % external solution Indications: Lichen planopilaris Apply to affected areas on the scalp, up to twice a day when flared, 30 day supply 60 mL 11 05/25/2024 Active gabapentin 300 mg oral capsule (20 sources) Anti-epileptic Agent Start: 03-13-20 End: 09-15-20 take 2 capsules by mouth once daily at bedtime as needed, then take 1 capsule by mouth once daily as needed gabapentin (Neurontin) 300 MG capsule Indications: Restless legs , Idiopathic peripheral neuropathy take 2 capsules by mouth once daily at bedtime (MAY ALSO TAKE 1 CAPSULE DAILY NEEDED) 180 capsule 3 03/13/2024 09/15/2024 Discontinued (Reorder) Start: 08-03-2019 take 1 capsule by mo ut once daily in the morning, then take 2 capsules by mouth once daily at bedtime gabapentin (Neurontin) 300 MG capsule Indications: Restless legs , Idiopathic peripheral neuropathy TAKE 1 CAPSULE BY MOUTH EVERY MORNING AND AFTERNOON AND TAKE TWO CAPSULES BY MOUTH EVERY NIGHT AT BEDTIME 120 capsule 1 11/24/2024 Active hydroCHLOROthiazide 25 mg oral tablet (20 sources) Thiazide Diuretic Start: 08-03-2019 take 1 tablet by mouth once daily in the morning hydroCHLOROthiazide (HYDRODiuril) 25 MG tablet Indications: Hypertension, unspecified type (CMS/HCC) TAKE 1 TABLET BY MOUTH DAILY IN THE MORNING 30 tablet 10 07/05/2024 Active hydrOXYzine hydrochloride 50 mg oral tablet (20 sources) Antihistamine Start: 03-15-2024 End: 09-12-2024 take 1 tablet by mouth twice daily as needed for anxiety hydrOXYzine HCl (Atarax) 50 MG tablet Indications: Generalized anxiety disorder (CMS/HCC) Take 1 tablet (50 mg) by mouth 2 (two) times a day as needed for anxiety 60 tablet 2 09/12/2024 Active Start: 01-21-2024 take 1 tablet by sobia th once daily as needed for anxiety Hydroxyzine Hcl 50 mg tablet Active 50 MG PO Daily as needed for anxiety January 21, 2024 12:00am ibuprofen 600 mg oral tablet (14 sources) Nonsteroidal Anti-inflammatory Drug ibuprofen 600 MG tablet Take by mouth every 8 (eight) hours if needed. Active lidocaine hydrochloride 20 mg/ml mucous membrane topical solution (10 sources) Antiarrhythmic, Amide Local Anesthetic Start: 04-30-2024 End: 11-17-2024 lidocaine (Xylocaine) 2 % solution Take by mouth if needed for moderate pain or mild pain 04/30/2024 11/17/2024 Discontinued Start: 05-09-2022 Lidoderm 5 % 1 -2 patch remove after 12 hours Externally Once a day PRN ONLY for 10 days Apr, Active losartan potassium 25 mg oral tablet (20 sources) Angiotensin 2 Receptor Pati Start: 08-03-2019 take 1 tablet by mouth once daily losartan (Cozaar) 25 MG tablet Indications: Hypertension, unspecified type (CMS/HCC) TAKE 1 TABLET BY MOUTH ONCE DAILY 30 tablet 10 07/05/2024 Active Magic Mouthwash W/Lidocaine 240 Ml Bottle (4 sources) Start: 04-30-2024 take 1 [tsp_us] by mouth every four to six hours as needed Magic Mouthwash W/Lidocaine 240 Ml Bottle Active 5 ML PO .every 4-6 hours April 30, 2024 12:00am Swish and spit 1 tsp every 4-6 hours as needed Magic Mouthwash W/Lidocaine 240 Ml Bottle 240 mL bottle (2 sources) Start: 04-30-2024 take 1 [tsp_us] by mouth every four to six hours as needed for pain Magic Mouthwash W/Lidocaine 240 Ml Bottle 240 mL bottle Active 5 ML PO .every 4-6 hours as needed for tongue pain April 29, 2024 11:00pm Swish and spit 1 tsp every 4-6 hours as needed 24 hr metFORMIN hydrochloride 500 mg extended release oral tablet (5 sources) Biguanide take 1 tablet by mouth once daily at dinner metFORMIN HCl ER 500 MG take 1 tablet by mouth WITH EVENING MEAL once daily for 30 Active nystatin [id number] unt/ml / triamcinolone acetonide 1 mg/ml topical cream (14 sources) Polyene Antifungal, Corticosteroid Start: 05-19-2024 nystatin-triamcino lone (Mycolog II) cream Indications: Skin rash in pelvic region Apply topically 2 (two) times a day Use for 2 weeks max 60 g 1 05/19/2024 Active phentermine hydrochloride 37.5 mg oral capsule (10 sources) Sympathomimetic Amine Anorectic Start: 09-20-2024 End: 10-30-2024 take 35-35.9 capsules by mouth before mealtime phentermine (Adipex-P) 37.5 MG capsule Indications: Class 2 obesity due to excess calories without serious comorbidity with body mass index (BMI) of 35.0 to 35.9 in adult Take 1 capsule (37.5 mg) by mouth in the morning. Take before meals. 30 capsule 10/30/2024 Active predniSONE 20 mg oral tablet (3 sources) Start: 07-22-2022 take 1 tablet by mouth every twelve [...] Orally Once a day for 30 Active sertraline 100 mg oral tablet (20 sources) Serotonin Reuptake Inhibitor Start: 04-30-2024 End: 12-13-2025 take 1 tablet by mouth once daily sertraline (Zoloft) 100 MG tablet Indications: Bipolar affective disorder, currently depressed, moderate (CMS/HCC) Take 1 tablet (100 mg) by mouth Daily 30 tablet 2 12/13/2024 12/13/2025 Active Start: 04-30-2024 Sertraline Act kelly MG PO April 30, 2024 12:00am Start: 01-21-2024 End: 04-30-2024 take 1 tablet by mouth once daily Sertraline 50 mg tablet Discontinued 50 MG PO Daily January 21, 2024 12:00am April 30, 2024 11:04am terbinafine hydrochloride 10 mg/ml topical cream (14 sources) Allylamine Antifungal Start: 05-25-2024 terbinafine (LamISIL AT ATHLETES FOOT) 1 % cream Indications: Tinea corporis Apply to groin topically once a day/30 days 42 g 3 05/25/2024 Active Completed/Discontinued Medications Medication Drug Class(es) Dates Sig (Normalized) Sig (Original) busPIRone hydrochloride 10 mg oral tablet (17 sources) Start: 03-15-2018 End: 08-03-2019 take 1 tablet by mouth once daily Buspirone 10 mg tablet Discontinued 10 MG PO Daily March 14, 2018 11:00pm August 03, 2019 1:28pm take 1 tablet by sobia th every twelve hours busPIRone HCl 5 MG 1 tablet Orally Twice a day for 30 days Active lisinopril 10 mg oral tablet (14 sources) Angiotensin Converting Enzyme Inhibitor Start: 03-15-2018 End: 03-16-2018 take 1 tablet by mouth once daily Lisinopril 10 mg tablet Discontinued 10 MG PO Daily March 14, 2018 11:00pm March 16, 2018 10:27am pravastatin sodium 40 mg oral tablet (9 sources) HMG-CoA Reductase Inhibitor Start: 01-21-2024 End: 01-22-2024 take 1 tablet by mouth once daily Pravastatin 40 mg tablet Discontinued 40 MG PO Daily January 21, 2024 12:00am January 22, 2024 2:20pm Triamcinolone (8 sources) Corticosteroid Start: 08-22-2018 Kenalog -40 mg Jul, 40 mg Start: 03-03-2017 Kenalog -40 mg Feb, 40 mg 24 hr venlafaxine 150 mg extended release oral capsule (20 sources) Serotonin and Norepinephrine Reuptake Inhibitor Start: 03-15-2018 End: 02-25-2024 take 1 capsule by mouth once daily Venlafaxine (Effexor Xr) 150 mg Capsule,Extended Release 24hr Discontinued 150 MG PO Daily March 14, 2018 11:00pm February 25, 2024 9:00am take 1 tablet by sobia th every twenty-four hours Venlafaxine HCl 75 MG 1 tablet with food Orally Once a day Active Problems Active Problems Problem Classification Problem Date Documented Date Episodic/Chronic Abdominal hernia (5 sources) Hiatal hernia; Translations: [Diaphragmatic hernia without obstruction or gangrene] Episodic Anal and rectal conditions (5 sources) Anal and rectal polyp; Translations: [Rectal polyp] Episodic Anxiety disorders (20 sources) Generalized anxiety disorder; Translations: [Generalized anxiety disorder] Onset: 04-02-2023 04-02-2023 Chronic Asthma (5 sources) Asthma; Translations: [Unspecified asthma, uncomplicated] Chronic Chronic kidney disease (17 sources) Chronic kidney disease stage 3; Translations: [Chronic kidney disease, stage 3 unspecified] Onset: 08-11-2023 Resolved: 08-17-2023 08-17-2023 Chronic Disorders of lipid metabolism (20 sources) Mixed hyperlipidemia; Translations: [Mixed hyperlipidemia] Onset: 12-11-2021 Resolved: 06-25-2022 Chronic Esophageal disorders (20 sources) Gastroesophageal reflux disease; Translations: [Gastro-esophageal reflux disease without esophagitis] Onset: 05-07-2023 Resolved: 08-11-2023 05-07-2023 Chronic Essential hypertension (20 sources) Hypertensive disorder; Translations: [Essential (primary) hypertension] Onset: 12-11-2021 Resolved: 08-11-2023 Chronic Hemorrhoids (5 sources) Hemorrhoids; Translations: [Unspecified hemorrhoids] Episodic Miscellaneous mental health disorders (14 sources) Functional visual loss; Translations: [Other somatoform disorders] Onset: 05-07-2023 05-07-2023 Chronic Mood disorders (20 sources) Major depression, single episode; Translations: [Major depressive disorder, single episode, unspecified] Onset: 04-02-2023 Resolved: 08-11-2023 04-02-2023 Chronic Nutritional deficiencies (6 sources) Vitamin D deficiency; Translations: [Vitamin D deficiency, unspecified] Onset: 12-11-2021 Resolved: 12-11-2021 Chronic Osteoarthritis (20 sources) Osteoarthritis; Translations: [Unspecified osteoarthritis, unspecified site] Onset: 11-29-2023 11-29-2023 Chronic Other and unspecified benign neoplasm (5 sources) History of polyp of colon; Translations: [Personal history of colonic polyps] Episodic Other congenital anomalies (14 sources) Porokeratosis; Translations: [Other specified congenital malformations of skin] Onset: 10-04-2023 10-04-2023 Chronic Other endocrine disorders (19 sources) Disorder of adrenal gland; Translations: [Disorder of adrenal gland, unspecified] Onset: 05-07-2023 05-07-2023 Chronic Other endocrine disorders (2 sources) Disorder of adrenal gland, unspecified Onset: 12-11-2021 Resolved: 06-25-2022 Chronic Other hereditary and degenerative nervous system conditions (20 sources) Restless legs; Translations: [Restless legs syndrome] Onset: 05-07-2023 05-07-2023 Chronic Other hereditary and degenerative nervous system conditions (14 sources) Cerebral atrophy; Translations: [Degenerative disease of nervous system, unspecified] Onset: 05-07-2023 05-07-2023 Chronic Other liver diseases (14 sources) Steatosis of liver; Translations: [Fatty (change of) liver, not elsewhere classified] Onset: 05-07-2023 05-07-2023 Chronic Other nervous system disorders (4 sources) Piriformis syndrome; Translations: [Lesion of sciatic nerve, left lower limb] Chronic Other nervous system disorders (1 source) Lesion of sciatic nerve, left lower limb Onset: 05-09-2022 Resolved: 05-09-2022 Chronic Other nervous system disorders (14 sources) Peripheral nerve disease ; Translations: [Polyneuropathy, unspecified] Onset: 05-07-2023 05-07-2023 Chronic Other nervous system disorders (3 sources) Idiopathic peripheral neuropathy; Translations: [Hereditary and idiopathic neuropathy, unspecified] 09-15-2024 Chronic Other non-traumatic joint disorders (4 sources) Pain in right knee; Translations: [Pain in joint, lower leg] Onset: 07-22-2022 Resolved: 07-22-2022 Episodic Other non-traumatic joint disorders (1 source) Pain in left knee; Translations: [Pain in left knee] Onset: 12-06-2024 Episodic Other nutritional; endocrine; and metabolic disorders (5 sources) Severe obesity; Translations: [Morbid (severe) obesity due to excess calories] Chronic Other nutritional; endocrine; and metabolic disorders (5 sources) Obese class II; Translations: [Body mass index (BMI) 36.0-36.9, adult] Chronic Other nutritional; endocrine; and metabolic disorders (5 sources) Obese class I; Translations: [Body mass index (BMI) 34.0-34.9, adult] Chronic Other nutritional; endocrine; and metabolic disorders (2 sources) Body mass index 30+ - obesity; Translations: [Body mass index (BMI) 35.0-35.9, adult] 09-15-2024 Chronic Other nutritional; endocrine; and metabolic disorders (1 source) Obesity caused by energy imbalance; Translations: [Class 2 obesity due to excess calories without serious comorbidity with body mass index (BMI) of 35.0 to 35.9 in adult] 10-30-2024 Chronic Residual codes; unclassified (20 sources) Obstructive sleep apnea syndrome; Translations: [Obstructive sleep apnea (adult) (pediatric)] Onset: 05-07-2023 05-07-2023 Chronic Residual codes; unclassified (2 sources) Obstructive sleep apnea (adult) (pediatric) Onset: 12-11-2021 Resolved: 06-25-2022 Chronic Residual codes; unclassified (5 sources) Memory impairment; Translations: [Other amnesia] Episodic Residual codes; unclassified (2 sources) H/O: high risk medication; Translations: [Personal history of other drug therapy] 12-21-2024 Episodic Spondylosis; intervertebral disc disorders; other back problems (1 source) Spondylosis without myelopathy or radiculopathy, lumbosacral region; Translations: [SPONDYLS W/O MYELO-/RADICULOP LS] Onset: 08-10-2022 Chronic Transient cerebral ischemia (5 sources) Transient cerebral ischemia; Translations: [Transient cerebral ischemic attack, unspecified] Chronic Unclassified (2 sources) Chest pain, unspecified / R07.9(ICD-9) Onset: 04-05-2018 Unclassified (1 source) CONTACT W/AND (SUSP) EXPOS COVID-19; Translations: [CONTACT W/AND (SUSP) EXPOS COVID-19] Onset: 12-21-2022 Unclassified (2 sources) LOW BACK PAIN, UNSPECIFIED; Translations: [LOW BACK PAIN, UNSPECIFIED] Onset: 08-10-2022 Unclassified (2 sources) Chronic pain of both knees 11-17-2024 Past or Other Problems Problem Classification Problem Date Documented Date Episodic/Chronic Acute cerebrovascular disease (20 sources) Cerebrovascular accident; Translations: [Cerebral infarction, unspecified] Onset: 4 Resolved: 4 01-21-2024 Chronic Chronic kidney disease (4 sources) Chronic kidney disease; Translations: [Chronic kidney disease, stage 3 unspecified] Onset: 2 Resolved: 2 Conditions associated with dizziness or vertigo (4 sources) Dizziness and giddiness; Translations: [DIZZINESS AND GIDDINESS] Onset: 2 Episodic Diabetes mellitus without complication (20 sources) Prediabetes; Translations: [Prediabetes] Onset: 2 Resolved: 2 Episodic Diseases of mouth; excluding dental (20 sources) Glossitis; Translations: [Glossitis] Onset: 4 04-30-2024 Episodic E Codes: Struck by; against (2 sources) Striking against or struck by other objects, initial encounter; Translations: [Other cause of strike by thrown, projected or falling object, initial encounter] Onset: 3 Episodic Fluid and electrolyte disorders (1 source) Hypokalemia Onset: 2 Resolved: 2 Episodic Mood disorders (14 sources) Mood disorders Onset: 3 05-10-2023 Nonspecific chest pain (20 sources) Chest pain, unspecified; Translations: [Chest pain] Onset: 8 Resolved: 3 03-15-2018 Episodic Nutritional deficiencies (19 sources) Iron deficiency; Translations: [Iron deficiency] Onset: 3 05-07-2023 Episodic Open wounds of extremities (5 sources) Laceration without foreign body, left ankle, initial encounter; Translations: [Laceration of left Achilles tendon, initial encounter] Onset: 3 Episodic Other aftercare (1 source) 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; 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] Onset: 2 Episodic Other aftercare (1 source) 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; Translations: [OTH 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 CURRENT DRUG THERAPY] Onset: 2 Episodic Other circulatory disease (16 sources) History of cerebrovascular accident; Translations: [Personal history of transient ischemic attack (TIA), and cerebral infarction without residual deficits] Onset: 4 11-29-2023 Episodic Other connective tissue disease (14 sources) Tear of left rotator cuff; Translations: [Unspecified rotator cuff tear or rupture of left shoulder, not specified as traumatic] Onset: 3 10-04-2023 Episodic Other gastrointestinal disorders (14 sources) Dysphagia; Translations: [Dysphagia, pharyngoesophageal phase] Onset: 3 10-04-2023 Episodic Other injuries and conditions due to external causes (1 source) Unspecified injury of right lower leg, initial encounter Onset: 2 Resolved: 2 Episodic Other nervous system disorders (14 sources) Impaired cognition; Translations: [Other symptoms and signs involving cognitive functions and awareness] Onset: 3 05-07-2023 Episodic Other nervous system disorders (14 sources) H/O: migraine; Translations: [Personal history of other diseases of the nervous system and sense organs] Onset: 4 11-29-2023 Episodic Sprains and strains (6 sources) Strain of left Achilles tendon, initial encounter; Translations: [Strain of left Achilles tendon, subsequent encounter] Onset: 3 Episodic Unclassified (1 source) LOW BACK PAIN, UNSPECIFIED; Translations: [LOW BACK PAIN, UNSPECIFIED] Onset: 2 Results Test Name Value Interpretation Reference Range Facility X-ray reportOrdered By: Johnnie Carlos on 12-06-[address] [facility] [address] [place] [address] XRay Report Signed Patient: Yarelis Swenson MR#: [id number] : 1970 Acct:[id number] Age/Sex: 54 / F ADM Date: 5 [place] [facility] [place]: Type: [facility] CLI Attending Dr: Maik Mcmillan DO Copies to: Maik Mcmillan DO~ Ordering Provider: Maik Mcmillan DO Date of Service: 12/06/24 XR/XR knee BI 3V - NOT FOR ER USE: M25.561 - Pain in right knee BILATERAL KNEES - 3 views each CLINICAL HISTORY: Bilateral knee pain for years. COMPARISON: Right knee series 07/22/2022 FINDINGS: No knee joint effusions. No acute bony process. There is severe patellofemoral joint space narrowing laterally involving both knees. There is associated degenerative change. XR/XR knee BI 3V - NOT FOR ER USE IMPRESSION: DEGENERATIVE CHANGES INVOLVING BOTH KNEES WITH SEVERE NARROWING INVOLVING THE LATERAL ASPECT OF THE PATELLOFEMORAL JOINT SPACES. Impression dictated by: Kd Carlos Jr., D.O.12/06/2024 6:51 PM Dictation Location: RADIO-PC-18 Transcribed By: PWS 12/06/241850 Dictated By: Kd Carlos Jr, DO 12/06/241850 Signed By: 12/06/241850 [facility] XR knee BI 3V - NOT FOR ER [place] 12-06-2024 XR knee BI 3V - NOT FOR ER USE [facility] [address] [place] [address] XRay Report Signed Patient: Yarelsi Swenson MR#: [id number] 1450 : 1970 Acct:[id number] Age/Sex: 54 / F ADM Date: 12/06/24 [place] [facility] [place]: Type: [facility] Attending Dr: Maik Mcmillan DO Copies to: Maik Mcmillan DO Ordering Provider: Maik Mcmillan DO Date of Service: 12/06/24 XR/XR knee BI 3V - NOT FOR ER USE: M25.561 - Pain in right knee BILATERAL KNEES - 3 views each CLINICAL HISTORY: Bilateral knee pain for years. COMPARISON: Right knee series 07/22/2022 FINDINGS: No knee joint effusions. No acute bony process. There is severe patellofemoral joint space narrowing laterally involving both knees. There is associated degenerative change. XR/XR knee BI 3V - NOT FOR ER USE IMPRESSION: DEGENERATIVE CHANGES INVOLVING BOTH KNEES WITH SEVERE NARROWING INVOLVING THE LATERAL ASPECT OF THE PATELLOFEMORAL JOINT SPACES. Impression dictated by: Kd Carlos Jr., D.O.12/06/2024 6:51 PM Dictation Location: RADIO-PC-18 Transcribed By: PWS 12/06/241850 Dictated By: Kd Carlos Jr, DO 12/06/241850 Signed By: 12/06/241850 Normal [facility] [place] 02-25-2024 L Specimen: Received: 02/25/24 Status: LESLEY Kate Num: [id number] Spec Type: Surgical Subm Dr: Ayaan Pulido MD Tissues: A Colon Biopsy (TRANSV POLYP) Procedures: HE/2, Gross/Micro L4 Age/ Patient Sex Location Account Attending Physician Yarelis Swenson 54/F [id number] Ayaan Pulido MD SPEC NUM: RECD: 02/25/24 STATUS: LESLEY JOHNSONNelida NUM: [id number] TERESA: 02/25/24 DR: Ayaan Pulido MD ENTERED: 02/25/[address] [facility] [address]: SPEC TYPE: Surgical DEPT: S ORDERED: [...] in one cassette labeled A1. CPT Codes 80964 Specimen: [id number] Received: 02/25/24 Status: LESLEY Kate Num: [id number] Spec Type: Surgical Subm Dr: Ayaan Pulido MD Tissues: A Colon Biopsy (TRANSV POLYP) Procedures: HE/2, Gross/Micro L4 Patient: Yarelis Swenson Chasity [id number] (Continued) Signed (signature on file) Miguel Angel Vital MD 02/28/24 175 Normal [facility] ECH echo transthoracicon [place] [address] Echocardiogram Signed Patient: Yarelis Swenson MR#: [id number] 1450 : 1970 Acct:[id number] Age/Sex: 53 / F ADM Date: 01/21/24 Loc: Room: [address] [place] [address] Type: ADM IN Attending Dr: Michael Wells MD Ordering Provider: Andrew Cordero DO, RES Date of Service: 01/21/24 ECH/ECH echo transthoracic: Stroke, please do bubble study Copies to: Koki Sow MD, [facility] Andrew Cordero DO,RES BSA: 1.9 m2 BP: [...] V1 VTI: 29.3 cm ___ Transcribed By: NAVID Performed At: 01/22/24927 Signed By: Koki Sow MD, [facility] 01/22/24 1510 Normal [facility] A1C with Estimated Average Shiva vazquez 01-21-2024 Glucose [Mass/Vol] 114 mg/dL Normal [facility] Comment on above: Result Comment: PERF ORMED BY: [place] [address] PATHOLOGIST INTEGRITY MANAGER GOSNALO BARKER M.D. Performed By: #### A 1C [facility] eA #### [place] [id number] [facility] Activated partial thrombopla stin time (aPTT) in platelet poor plasma by coagulation aOrdered By: Pop Marie on 01-21-2024 aPTT Coag (PPP) [Time] 28.8 s 25.1-36.5 [facility] Comment on above: A hematocrit value g reater than 55% may lead to inaccurate results in coagulation testing. Patients having hematocrit values >55% require a special collection tube for coagulation studies. Please contact the laboratory at [phone] for redraw instructions. Alanine aminotransferase [En zymatic activity/volume] in Serum or PlasmaOrdered By: Pop Marie on 01-21-2024 ALT [Catalytic activity/Vol] 15 U/L Normal 7-52 [facility] Comment on above: Performed By: #### A 1C [facility] eA #### [facility] [address] [place], [place] [id number] [place] Albumin [Mass/volume] in Ser um or Plasma by Bromocresol green (BCG) dye binding methoOrdered By: Pop Marie on 01-21-2024 Albumin BCG dye [Mass/Vol] 4.4 g/dL 3.5-5.7 [facility] Alkaline phosphatase [Enzyma tic activity/volume] in Serum or PlasmaOrdered By: Pop Marie on 01-21-2024 ALP [Catalytic activity/Vol] 61 U/L Normal 34-104 [facility] Comment on above: Performed By: #### A 1C [facility] eA #### [address] Aspartate aminotransferase [ Enzymatic activity/volume] in Serum or PlasmaOrdered By: Pop Marie on 01-21-2024 AST [Catalytic activity/Vol] 16 U/L Normal 13-39 [facility] Comment on above: Performed By: #### A 1C [facility] eA #### [address] Automated basophil %Ordered By: Pop Marie on 01-21-2024 Basophils/100 WBC (Bld) 0.6 % Normal . [facility] Comment on above: Performed By: #### A 1C [facility] eA #### [address] Automated basophil countOrde red By: Pop Marie on 01-21-2024 Basophils (Bld) [#/Vol] 0.0 10*3/uL Normal 0.0-0.2 [facility] Comment on above: Result Comment: PERF ORMED BY: [place] [address] PATHOLOGIST INTEGRITY MANAGER GONSALO BAREKR M.D. Performed By: #### A 1C [facility] eA #### [address] Automated blood monocyte cou ntOrdered By: Pop Marie on 01-21-2024 Monocytes (Bld) [#/Vol] 0.5 10*3/uL Normal 0.0-0.8 [facility] Comment on above: Performed By: #### A 1C [facility] eA #### [address] Automated eosinophil %Ordere d By: Pop Marie on 01-21-2024 Eosinophils/100 WBC (Bld) 1.4 % Normal . [facility] Comment on above: Performed By: #### A 1C [facility] eA #### [address] Automated eosinophil countOr dered By: Pop Marie on 01-21-2024 Eosinophils (Bld) [#/Vol] 0.1 10*3/uL Normal 0.0-0.45 [facility] Comment on above: Performed By: #### A [facility] eA #### [facility] [address] Automated erythrocytes count in urine sediment (number/area)Ordered By: Pop Marie on 01-21-2024 RBC Auto (Urine sed) [#/Area] 3-4 [HPF] 0-4 [facility] Automated leukocytes count i n urine sediment (number/area)Ordered By: Pop Marie on 01-21-2024 WBC Auto (Urine sed) [#/Area] 10-19 [HPF] 0-4 [facility] Automated monocyte %Ordered By: Pop Marie on 01-21-2024 Monocytes/100 WBC (Bld) 5.8 % Normal . [facility] Comment on above: Performed By: #### A [facility] eA #### [address] Automated neutrophil %Ordere d By: Pop Marie on 01-21-2024 Neutrophils/100 WBC (Bld) 66.3 % Normal . [facility] Comment on above: Performed By: #### A [facility] eA #### [address] Automated urine color determ inationOrdered By: Pop Marie on 01-21-2024 Color (U) Yellow Normal Yellow [facility] Comment on above: Order Comment: Name Collection Type:: Clean-Voided Midstream Performed By: #### C UU, ADDONUAPLUS #### [facility] [address] [place] [address] Automated urine hyaline cast s count (number/volume)Ordered By: Pop Marie on 01-21-2024 Hyaline casts Auto (U) [#/Vol] None seen [LPF] 0-1 [facility] Bacterial blood cultureOrder ed By: Michael Wells on 01-21-2024 Bacteria identified Cx Nom (Bld) NO GROWTH 5 DAYS [facility] Basic Metabolic Panelon 12-31 Creatinine Clr Calc Pharmacy 78.64 Normal [facility] Comment on above: Result Comment: PERF ORMED BY: [place] [address] PATHOLOGIST INTEGRITY MANAGER GONSALO BARKER M.D. Performed By: #### A 1C [facility] eA #### [address] GFR/1.73 sq M.predicted MDRD (S/P/Bld) [Vol rate/Area] mL/min/{1.73_m2} Normal [facility] Comment on above: Performed By: #### A 1C [facility] eA #### [address] Bilirubin Test strip Ql (U)O rdered By: Pop Marie on 01-21-2024 Bilirubin Ql (U) Negative Negative [facility] Bilirubin.direct [Mass/volum e] in Serum or PlasmaOrdered By: Pop Marie on 01-21-2024 Bilirubin.direct [Mass/Vol] 0.10 mg/dL 0.03-0.18 [facility] Bilirubin.total [Mass/volume ] in Serum or PlasmaOrdered By: Pop Marie on 01-21-2024 Bilirubin [Mass/Vol] 0.6 mg/dL Normal 0.3-1.0 [facility] Comment on above: Performed By: #### A 1C [facility] eA #### [address] Blood Cultureon 01-21-2024 Bacteria identified Cx Nom (Bld) NO GROWTH 5 DAYS PERFORMED BY: [place] [address] PATHOLOGIST INTEGRITY MANAGER GONSALO BARKER M.D. Normal [facility] Comment on above: Performed By: #### E SR, CRP, CUBLD, LIPID, HSCRP #### [address] Performed By: #### A 1C WT eA #### [address] C reactive protein [Mass/vol ume] in Serum or PlasmaOrdered By: Michael Wells on 01-21-2024 CRP [Mass/Vol] < 0.5 mg/dL 0.0-0.5 [facility] C reactive protein [Mass/vol ume] in Serum or Plasma by High sensitivity methodOrdered By: Michael Wells on 01-21-2024 CRP High sensitivity method [Mass/Vol] 1.0 mg/L 0.0-0.9 [facility] Comment on above: Cardiovascular Risk Classification [...] Proteinon 024 CRP [Mass/Vol] mg/L Normal 0.0-0.5 [facility] Comment on above: Order Comment: YANG Cabrera Performed By: #### E SR, CRP, CUBLD, LIPID, HSCRP #### [place] [id number] [facility] CT angio neckon 01-21-[address] [facility] [place] [address] [place] [address] CT Scan Report Signed Patient: Yarelis Swenson MR#: [id number] 1450 : 1970 Acct:[id number] Age/Sex: 53 / F ADM Date: 01/21/24 Loc: ER Room: Type: PRE ER Attending Dr: Copies to: Pop Marie PA-C Ordering Provider: Pop Marie PA-C Date of Service: 01/21/24 CT/CT angio neck: acute stroke/neuro deficits ([id number]) CT/CT angio head: acute stroke/neuro deficits CT [...] Alicia Tian M.D.01/21/2024 12:04 PM Dictation Location: [place] [address] Transcribed By: DEMOND 01/21/24 1204 Dictated By: Alicia Tian II, MD 01/21/24 1156 Signed By: 01/21/24 1204 Normal [facility] CT head stroke alert wo cono n 01-21-2024 CT head stroke alert wo con [facility] [place] [address] [place] [address] CT Scan Report Signed Patient: Yarelis Swenson MR#: [id number] 1450 : 1970 Acct:[id number] Age/Sex: 53 / F ADM Date: 01/21/24 [...] Alicia Tian M.D.01/21/2024 11:56 AM Dictation Location: [place] [address] Transcribed By: [facility] 01/21/24 1156 Dictated By: Alicia Tian II, MD 01/21/24 1151 Signed By: 01/21/24 1156 Normal [facility] Calcium [Mass/volume] in Ser um or PlasmaOrdered By: Pop Marie on 01-21-2024 Calcium [Mass/Vol] 9.5 mg/dL Normal 8.6-10.3 [facility] Comment on above: Performed By: #### A 1C [facility] eA #### [facility] [address] Capillary blood glucose sarah urement by glucometer (mass/volume)Ordered By: ORION BOYER on 01-21-2024 Glucose [Mass/Vol] 103 mg/dL Normal [facility] Comment on above: Random Glucose Refer ence Range is dependent on time and content of last meal. Glucose of more than 200 mg/dL in a nonstressed, ambulatory subject supports the diagnosis of Diabetes Mellitus. Result Comment: [place] Glucose Reference Range is dependent on time and content of last meal. Glucose of more than 200 mg/dL in a nonstressed, ambulatory subject supports the diagnosis of Diabetes Mellitus. Performed By: #### A 1C [facility] eA #### [facility] [address] [place] [id number] [facility] Carbon dioxide, total [Moles /volume] in Serum or PlasmaOrdered By: Pop Marie on 01-21-2024 CO2 [Moles/Vol] 27.3 mmol/L Normal 21.0-31.0 [facility] Comment on above: Performed By: #### A 1C [facility] eA #### [facility] [address] [place] [id number] [place] Casts typing in urine sedime nt by light microscopyOrdered By: Pop Marie on 01-21-2024 Casts LM Nom (Urine sed) None seen [LPF] None Seen [facility] Chloride [Moles/volume] in S anthony or PlasmaOrdered By: Pop Marie on 01-21-2024 Chloride [Moles/Vol] 105 mmol/L Normal 98-107 [facility] Comment on above: Performed By: #### A 1C [facility] eA #### [facility] [address] [place] [address] [place] Cholesterol [Mass/volume] in Serum or PlasmaOrdered By: Michael Wells on 01-21-2024 Cholesterol [Mass/Vol] 184 mg/dL Normal 140-200 [facility] Comment on above: Chol less than 200 m g/dl low riskChol 201-239 mg/dl borderline riskChol 240 mg/dl and greater high risk Order Comment: YANG Cabrera Result Comment: Chol less than 200 mg/dl low risk Chol 201-239 mg/dl borderline risk Chol 240 mg/dl and greater high risk Performed By: #### E SR, CRP, CUBLD, LIPID, HSCRP #### [facility] [address] [place] [address] [place] Cholesterol in LDL Calc [Mas s/Vol]Ordered By: Michael Wells on 01-21-2024 Cholesterol in LDL [Mass/Vol] 95 mg/dL 0-100 [facility] Comment on above: LDL ATP III CLASSIFI CATIONLDL less than 100 mg/dL OptimalLDL 100-129 mg/dL Near or above optimalLDL 130-159 mg/dL Borderline highLDL 160-189 mg/dL HighLDL greater than 189 mg/dL Very high Cholesterol in VLDL Calc [Ma ss/Vol]Ordered By: Michael Wells on 01-21-2024 Cholesterol in VLDL [Mass/Vol] 33 mg/dL [facility] Complete Blood Count Auto Di ffon 01-21-2024 Mean Corpuscular HGB Conc 34.0 g/dL Normal 32.0-35.0 [facility] Comment on above: Performed By: #### A 1C WT eA #### [facility] [address] [place] [id number] [place] Monocytes/100 WBC (Bld) 18.28 % Normal 0.00-20.00 [facility] Comment on above: Performed By: #### A 1C WT eA #### [facility] [address] [place] [address] [place] NRBC% 0.1 /100{WBC} Normal 0-0.5 [facility] Comment on above: Performed By: #### A 1C [facility] eA #### [facility] [address] [place] [address] [place] Creatine kinase [Enzymatic a ctivity/volume] in Serum or PlasmaOrdered By: Pop Marie on 01-21-2024 CK [Catalytic activity/Vol] 60 U/L Normal 30-223 [facility] Comment on above: Performed By: #### A 1C [facility] eA #### [address] Creatinine [Mass/volume] in Serum or PlasmaOrdered By: Pop Marie on 01-21-2024 Creatinine [Mass/Vol] 0.83 mg/dL Normal 0.60-1.20 [facility] Comment on above: Performed By: #### A 1C [facility] eA #### [place] [address] [place] Dipstick and Microscopicon 0 01-21-2024 Appearance (U) Cloudy Critically abnormal Clear [facility] Comment on above: Order Comment: Name Collection Type:: Clean-Voided Midstream Performed By: #### C UU, ADDONUAPLUS #### [place] [address] [place] Bacteria,Urine 2+ High None Seen [facility] Comment on above: Order Comment: Name Collection Type:: Clean-Voided Midstream Performed By: #### C UU, ADDONUAPLUS #### [place] [address] [place] Bilirubin,Urine Negative Normal Negative [facility] Comment on above: Order Comment: Name Collection Type:: Clean-Voided Midstream Performed By: #### C UU, ADDONUAPLUS #### [place] [address] [place] Glucose Ql (U) Normal Normal Normal [facility] Comment on above: Order Comment: Name Collection Type:: Clean-Voided Midstream Performed By: #### C UU, ADDONUAPLUS #### [place] [address] [place] Hyaline Casts,Urine None Seen Normal 0-1 [facility] Comment on above: Order Comment: Name Collection Type:: Clean-Voided Midstream Performed By: #### C UU, ADDONUAPLUS #### [place] [address] [place] Ketones Ql (U) Negative Normal Negative [facility] Comment on above: Order Comment: Name Collection Type:: Clean-Voided Midstream Performed By: #### C UU, ADDONUAPLUS #### [address] Leukocyte esterase Test strip Ql (U) 3+ High Negative [facility] Comment on above: Order Comment: Name Collection Type:: Clean-Voided Midstream Performed By: #### C UU, ADDONUAPLUS #### [place] [address] [place] Nitrite,Urine Negative Normal Negative [facility] Comment on above: Order Comment: Name Collection Type:: Clean-Voided Midstream Performed By: #### C UU, ADDONUAPLUS #### [place] [address] [place] Occult Blood,Urine Negative Normal Negative [facility] Comment on above: Order Comment: Name Collection Type:: Clean-Voided Midstream Result Comment: PERF ORMED BY: [place] [address] PATHOLOGIST INTEGRITY MANAGER GONSALO BARKER M.D. Performed By: #### C UU, ADDONUAPLUS #### [address] Other Casts,Urine None Seen Normal None Seen [facility] Comment on above: Order Comment: Name Collection Type:: Clean-Voided Midstream Result Comment: PERF ORMED BY: [place] [address] PATHOLOGIST INTEGRITY MANAGER GONSALO BARKER M.D. Performed By: #### C UU, ADDONUAPLUS #### [place] [address] [place] Protein,Urine Negative Normal Negative [facility] Comment on above: Order Comment: Name Collection Type:: Clean-Voided Midstream Performed By: #### C UU, ADDONUAPLUS #### [place] [address] [place] RBC,Urine 3-4 Normal 0-4 [facility] Comment on above: Order Comment: Name Collection Type:: Clean-Voided Midstream Performed By: #### C UU, ADDONUAPLUS #### [address] Specificy [place],Urine 1.050 High 1.001-1.03 0 [facility] Comment on above: Order Comment: Name Collection Type:: Clean-Voided Midstream Performed By: #### C UU, ADDONUAPLUS #### [address] Squamous Epithelial Cell,Urine Innumerable High 0-2 [facility] Comment on above: Order Comment: Name Collection Type:: Clean-Voided Midstream Performed By: #### C UU, ADDONUAPLUS #### [place] [address] [place] Urobilinogen,Urine Normal Normal Normal [facility] Comment on above: Order Comment: Name Collection Type:: Clean-Voided Midstream Performed By: #### C UU, ADDONUAPLUS #### [place] [address] [place] WBC,Urine 10-19 High 0-4 [facility] Comment on above: Order Comment: Name Collection Type:: Clean-Voided Midstream Performed By: #### C UU, ADDONUAPLUS #### [address] ECG 12 lead ECGon 01-21-2024 [address] [facility] [place] [address] [place] [address] Electrocardiograph Report Signed Patient: Yarelis Swenson MR#: [id number] 1450 : 1970 Acct:[id number] Age/Sex: 53 / F ADM Date: 01/21/24 Loc: Room: [address] [place] [address] Type: ADM IN Attending Dr: Michael Wells [...] Signed By Saba Mandel DO 1450 Normal [facility] Erythrocyte Sedimentation Ra genny 01-21-2024 ESR (Bld) [Velocity] 13 mm/h Normal 0-29 [facility] [facility] Comment on above: Result Comment: PERF ORMED BY: [place] [address] PATHOLOGIST INTEGRITY MANAGER GONSALO BARKER M.D. Performed By: #### E SR, CRP, CUBLD, LIPID, HSCRP #### [facility] [address] [place] [address] Erythrocyte distribution wid th [Ratio] by Automated countOrdered By: Pop Marie on 01-21-2024 Erythrocyte distribution width (RBC) [Ratio] 13.9 % Normal 11.9-15.3 [facility] Comment on above: Performed By: #### A 1C WT eA #### [facility] [address] [place] [address] Erythrocyte sedimentation ra te by Photometric methodOrdered By: Michael Wells on 01-21-2024 ESR Photometric method (Bld) [Velocity] 13 mm/hr 0-29 [facility] Erythrocytes [#/volume] in B lood by Automated countOrdered By: Pop Marie on 01-21-2024 RBC (Bld) [#/Vol] 4.51 10*6/uL Normal 3.60-5.00 [facility] Comment on above: Performed By: #### A 1C [facility] eA #### [facility] [address] [place] [id number] [place] Ethanol [Mass/volume] in Ser um or PlasmaOrdered By: Pop Marie on 01-21-2024 Ethanol [Mass/Vol] mg/dL Normal [facility] Comment on above: Performed By: #### A 1C [facility] eA #### [facility] [address] [place] [address] [place] Ethanol [Mass/Vol] TNP [facility] Comment on above: Test not performed Ethyl Alcohol Profileon 12-31 Percent Ethanol Not performed Normal [facility] Comment on above: Result Comment: PERF ORMED BY: [facility] [address] [place] [address] PATHOLOGIST INTEGRITY MANAGER GONSALO BARKER M.D. Performed By: #### A 1C [facility] eA #### [facility] [address] [place] [id number] [facility] Glucose Poct Glucometerson 0 01-21-2024 Commemt1 Glu2: Cleaned Meter Normal [facility] Comment on above: Result Comment: PERF ORMED BY: [facility] [address] [place] [address] PATHOLOGIST INTEGRITY MANAGER GONSALO BARKER M.D. Performed By: #### A 1C [facility] eA #### [facility] [address] [place] [address] [place] Glucose [Mass/volume] in Ser um or PlasmaOrdered By: Pop Marie on 01-21-2024 Glucose [Mass/Vol] 89 mg/dL Normal 70-100 [facility] Comment on above: ADA recommended refe rence rangeRandom Glucose Reference Range is dependent on time and content of last meal. Glucose of more than 200 mg/dL in a nonstressed, ambulatory subject supports the diagnosis of Diabetes Mellitus. Result Comment: [place] Glucose Reference Range is dependent on time and content of last meal. Glucose of more than 200 mg/dL in a nonstressed, ambulatory subject supports the diagnosis of Diabetes Mellitus. ADA recommended reference range Performed By: #### A 1C [facility] eA #### [facility] [address] Glucose mean value [Mass/vol ume] in Blood Estimated from glycated hemoglobinOrdered By: Michael Wells on 01-21-2024 Average glucose Estimated from glycated hemoglobin (Bld) [Mass/Vol] 114 mg/dL [facility] Hematocrit [Volume Fraction] of Blood by Automated countOrdered By: Pop Marie on 01-21-2024 Hematocrit (Bld) [Volume fraction] 39.3 % Normal 34.0-46.4 [facility] Comment on above: Performed By: #### A 1C [facility] eA #### [address] Hemoglobin A1c percentageOrd ered By: Michael Wells on 01-21-2024 HbA1c (Bld) [Mass fraction] 5.6 % Normal 4.3-5.6 [facility] Comment on above: Increased risk for d iabetes: 5.7 - 6.4diabetes: >6.4glycemic control for adults with diabetes: <7.0 Result Comment: Incr eased risk for diabetes: 5.7 - 6.4 diabetes: >6.4 glycemic control for adults with diabetes: <7.0 Performed By: #### A 1C [facility] eA #### [address] Hemoglobin [Mass/volume] in BloodOrdered By: Pop Marie on 01-21-2024 Hemoglobin (Bld) [Mass/Vol] 13.4 g/dL Normal 11.8-15.4 [facility] Comment on above: Performed By: #### A 1C [facility] eA #### [place] [id number] [facility] Hepatic Panelon 01-21-2024 Albumin [Mass/Vol] 4.4 g/dL Normal 3.5-5.7 [facility] Comment on above: Performed By: #### A 1C [facility] eA #### [facility] [address] Bilirubin,Indirect 0.5 mg/dL Normal [facility] Comment on above: Performed By: #### A 1C [facility] eA #### [facility] [address] Bilirubin.indirect [Mass/Vol] 0.10 mg/dL Normal 0.03-0.18 [facility] Comment on above: Performed By: #### A 1C [facility] eA #### [facility] [address] High Sensitive CRPon 024 High Sensitive CRP 1.0 mg/L High 0.0-0.9 [facility] Comment on above: Result Comment: Card iovascular [...] for estimation of CVD risk. PERFORMED BY: [place] [address] PATHOLOGIST INTEGRITY MANAGER GONSALO BARKER M.D. Performed By: #### E SR, CRP, CUBLD, LIPID, HSCRP #### [address] INR in Platelet poor plasma by Coagulation assayOrdered By: Pop Marie on 01-21-2024 INR Coag (PPP) [Relative time] 1.0 {INR} Normal [facility] Comment on above: INR Therapeutic Rang [...] with mechanical heart valves: 3 - 4.5 Result Comment: INR Therapeutic Range A) Pre- [...] - 4.5 Performed By: #### A 1C [facility] eA #### [address] ISTAT XRay CREon 01-21-2024 ISTAT GFR > 60.0 Normal [facility] Comment on above: Result Comment: PERF ORMED BY: [place] [address] PATHOLOGIST INTEGRITY MANAGER GONSALO BARKER M.D. Performed By: #### T SH3 #### [address] Ketones Auto test strip (U) [Mass/Vol]Ordered By: Pop Marie on 01-21-2024 Ketones (U) [Mass/Vol] Negative Negative [facility] Leukocytes [#/volume] correc ekaterina for nucleated erythrocytes in Blood by Automated counOrdered By: Pop Marie on 01-21-2024 WBC corrected for nucl RBC Auto (Bld) [#/Vol] 7.8 10*3/uL 3.8-11.6 [facility] Leukocytes [#/volume] in Blo od by Automated countOrdered By: Pop Marie on 01-21-2024 WBC (Bld) [#/Vol] 7.8 10*3/uL Normal 3.8-11.6 [facility] Comment on above: Performed By: #### A 1C [facility] eA #### [address] Lipid Panelon 01-21-2024 LDL Cholesterol,Calculated 95 mg/dL Normal 0-100 [facility] Comment on above: Order Comment: YANG ESPINAL Y Result Comment: LDL ATP III CLASSIFICATION LDL less than 100 mg/dL Optimal LDL 100-129 mg/dL Near or above optimal LDL 130-159 mg/dL Borderline high LDL 160-189 mg/dL High LDL greater than 189 mg/dL Very high Performed By: #### E SR, CRP, CUBLD, LIPID, HSCRP #### [address] Triglyceride w/Reflex 169 mg/dL High 0-149 [facility] Comment on above: Order Comment: FASTI NG Y Result Comment: TRIG ATP III CLASSIFICATION TRIG less than 150 mg/dL Normal TRIG 150-199 mg/dL Borderline high TRIG 200-500 mg/dL High TRIG greater than 500 mg/dL Very high Standard traceable to the Center for Disease Conrtrol and Prevention (CDC) test method. Performed By: #### E SR, CRP, CUBLD, LIPID, HSCRP #### [address] VLDL CHOLESTEROL 33 mg/dL Normal [facility] Comment on above: Order Comment: FASTI NG Y Performed By: #### E SR, CRP, CUBLD, LIPID, HSCRP #### [address] Lymphocytes [#/volume] in Bl ood by Automated countOrdered By: Pop Marie on 01-21-2024 Lymphocytes (Bld) [#/Vol] 2.0 10*3/uL Normal 1.00-4.8 [facility] Comment on above: Performed By: #### A 1C WT eA #### [place] [address] [place] Lymphocytes/100 leukocytes i n Blood by Automated countOrdered By: Pop Marie on 01-21-2024 Lymphocytes/100 WBC (Bld) 25.9 % Normal . [facility] Comment on above: Performed By: #### A 1C WT eA #### [place] [address] [place] MCH [Entitic mass] by Automa ekaterina countOrdered By: Pop Marie on 01-21-2024 MCH (RBC) [Entitic mass] 29.7 pg Normal 24.7-34.3 [facility] Comment on above: Performed By: #### A 1C WT eA #### [facility] [address] MCHC Auto (RBC) [Mass/Vol]Or dered By: Pop Marie on 01-21-2024 MCHC (RBC) [Mass/Vol] 34.0 g/dL 32.0-35.0 [facility] MCV [Entitic volume] by Auto mated countOrdered By: Pop Marie on 01-21-2024 MCV (RBC) [Entitic vol] 87.2 fL Normal 80-100 [facility] Comment on above: Performed By: #### A 1C [facility] eA #### [facility] [address] [place] [address] MR head/brain wo conon 01-21 MR head/brain wo con [facility] [place] [address] [place] [address] MRI Report Signed Patient: Yarelis Swenson MR#: [id number] : 1970 Acct:[id number] Age/Sex: 53 / F ADM Date: 01/21/24 Loc: Room: [address] [place] [address] Type: ADM IN Attending Dr: Michael Wells [...] Danielito Haro M.D.01/21/2024 5:57 PM Dictation Location: [place] [address] Transcribed By: [facility] 01/21/241756 Dictated By: Danielito Haro DO 01/21/241753 Signed By: 01/21/241756 Normal [facility] Monocyte distribution width [Entitic volume] in Blood by AutomatedOrdered By: Pop Marie on 01-21-2024 Monocyte distribution width Auto (Bld) [Entitic vol] 18.28 % 0.00-20.00 [facility] Neutrophils [#/volume] in Bl ood by Automated countOrdered By: Pop Marie on 01-21-2024 Neutrophils (Bld) [#/Vol] 5.2 10*3/uL Normal 1.8-7.7 [facility] Comment on above: Performed By: #### A 1C [facility] #### [address] Nitrite Test strip Ql (U)Ord ered By: Pop Marie on 01-21-2024 Nitrite Ql (U) Negative Negative [facility] No Panel InformationOrdered By: Pop Marie on 01-21-2024 Bedside Estimated GFR (eGFR) > 60.0 [facility] Estimated GFR (CKD-EPI) > 60.0 mL/Min [facility] Creatinine Clearance (Chem 78.64 [facility] No Panel InformationOrdered By: PROVIDER TEMP on 01-21-2024 Bedside Glucose Comment Glu2: cleaned meter [facility] Nucleated erythrocytes [Pres ence] in Blood by Automated countOrdered By: Pop Marie on 01-21-2024 Nucleated RBC Auto Ql (Bld) 0.1 /100{WBC} 0-0.5 [facility] Partial Thromboplastin Timeo n 01-21-2024 aPTT Coag (Bld) [Time] 28.8 s Normal 25.1-36.5 [facility] Comment on above: Result Comment: A he matocrit value greater than 55% may lead to inaccurate results in coagulation testing. Patients having hematocrit values >55% require a special collection tube for coagulation studies. Please contact the laboratory at [phone] for redraw instructions. PERFORMED BY: [address] [place] [address] PATHOLOGIST INTEGRITY MANAGER GONSALO BARKER M.D. Performed By: #### A 1C [facility] eA #### [address] Platelet mean volume [Entiti c volume] in Blood by Automated countOrdered By: Pop Marie on 01-21-2024 Platelet mean volume (Bld) [Entitic vol] 6.7 fL Normal 6.3-10.7 [facility] Comment on above: Performed By: #### A [facility] eA #### [address] Platelets [#/volume] in Bloo d by Automated countOrdered By: Pop Marie on 01-21-2024 Platelets (Bld) [#/Vol] 377 10*3/uL Normal 150-450 [facility] Comment on above: Performed By: #### A [facility] eA #### [address] Potassium [Moles/volume] in Serum or PlasmaOrdered By: Pop Marie on 01-21-2024 Potassium [Moles/Vol] 3.3 mmol/L Low 3.5-5.1 [facility] Comment on above: Performed By: #### A [facility] eA #### [address] Protein Auto test strip (U) [Mass/Vol]Ordered By: Pop Marie on 01-21-2024 Protein (U) [Mass/Vol] Negative Negative [facility] Protein [Mass/volume] in Ser um or PlasmaOrdered By: Pop Marie on 01-21-2024 Protein [Mass/Vol] 7.3 g/dL Normal 6.4-8.9 [facility] Comment on above: Performed By: #### A 1C [facility] eA #### [address] Prothrombin time (PT)Ordered By: Pop Marie on 01-21-2024 PT Coag (PPP) [Time] 11.2 s Normal 9.0-12.9 [facility] Comment on above: A hematocrit value g reater than 55% may lead to inaccurate results in coagulation testing. Patients having hematocrit values >55% require a special collection tube for coagulation studies. Please contact the laboratory at [phone] for redraw instructions. Result Comment: A he matocrit value greater than 55% may lead to inaccurate results in coagulation testing. Patients having hematocrit values >55% require a special collection tube for coagulation studies. Please contact the laboratory at [phone] for redraw instructions. Performed By: #### A 1C [facility] eA #### [address] Serum globulin measurement b y calculation (mass/volume)Ordered By: Pop Mraie on 01-21-2024 Globulin (S) [Mass/Vol] 2.9 g/dL [facility] Comment on above: Performed By: #### A 1C [facility] eA #### [address] Serum or plasma albumin/glob ulin mass ratioOrdered By: Pop Marie on 01-21-2024 Albumin/Globulin [Mass ratio] 1.5 {ratio} [facility] Comment on above: Performed By: #### A 1C [facility] eA #### [address] Serum or plasma anion gap de terminationOrdered By: Pop Marie on 01-21-2024 Anion gap [Moles/Vol] 11.0 mmol/L Normal 6.0-15.0 [facility] Comment on above: Performed By: #### A 1C [facility] eA #### [address] Serum or plasma high density lipoprotein (HDL) cholesterol measurementOrdered By: Michael Wells on 01-21-2024 Cholesterol in HDL [Mass/Vol] 55 mg/dL Normal [facility] Comment on above: HDL CHOL ATP-III CLA SSIFICATION Cardiovascular RiskHDL > or equal to 60 mg/dL LOWHDL < 40 mg/dL HIGH Order Comment: YANG Cabrera Result Comment: HDL CHOL ATP-III CLASSIFICATION Cardiovascular Risk HDL > or equal to 60 mg/dL LOW HDL < 40 mg/dL HIGH Performed By: #### E SR, CRP, CUBLD, LIPID, HSCRP #### [facility] [address] [place] [address] Serum or plasma non-glucuron idated bilirubin measurement (mass/volume)Ordered By: Pop Marie on 01-21-2024 Bilirubin.indirect [Mass/Vol] 0.5 mg/dL [facility] Serum or plasma total choles terol/high density lipoprotein (HDL) cholesterol mass ratOrdered By: Michael Wells on 01-21-2024 Cholesterol.total/Chol esterol in HDL [Mass ratio] 3.3 {ratio} Normal <5.0 [facility] Comment on above: Order Comment: YANG Cabrera Result Comment: PERF ORMED BY: [place] [address] PATHOLOGIST INTEGRITY MANAGER GONSALO BARKER M.D. Performed By: #### E SR, CRP, CUBLD, LIPID, HSCRP #### [facility] [address] [place] [address] Sodium [Moles/volume] in Ser um or PlasmaOrdered By: Pop Marie on 01-21-2024 Sodium [Moles/Vol] 140 mmol/L Normal 136-145 [facility] Comment on above: Performed By: #### A 1C [facility] eA #### [facility] [address] [place] [address] Specific gravity Auto test s trip (U) [Rel density]Ordered By: Pop Marie on 01-21-2024 Specific gravity (U) [Rel density] 1.050 1.001-1.03 0 [facility] Squamous epithelial cells de tection in urine sediment by light microscopyOrdered By: Pop Marie on 01-21-2024 Epithelial cells.squamous LM Ql (Urine sed) Innumerable [HPF] 0-2 [facility] Thyrotropin [Units/volume] i n Serum or PlasmaOrdered By: Michael Wells on 01-21-2024 TSH Qn 1.10 m[IU]/L Normal 0.45-5.33 [facility] Comment on above: Order Comment: Lillian palma addon Result Comment: PERF ORMED BY: [place] [address] PATHOLOGIST INTEGRITY MANAGER GONSALO BARKER M.D. Performed By: #### T SH3 #### [address] Triglyceride [Mass/volume] i n Serum or PlasmaOrdered By: Michael Wells on 01-21-2024 Triglyceride [Mass/Vol] 169 mg/dL 0-149 [facility] Comment on above: TRIG ATP III CLASSIF ICATIONTRIG less than 150 mg/dL NormalTRIG 150-199 mg/dL Borderline highTRIG 200-500 mg/dL High TRIG greater than 500 mg/dL Very highStandard traceable to the Center for Disease Conrtrol and Prevention (CDC) test method. Troponin I High Sensitivityo n 01-21-2024 Troponin I High Sensitivity 4.2 pg/mL Normal 0.0-15.0 [facility] Comment on above: Result Comment: PERF ORMED BY: [place] [address] PATHOLOGIST INTEGRITY MANAGER GONSALO BARKER M.D. Performed By: #### A 1C [facility] eA #### [address] Troponin I.cardiac [Mass/vol ume] in Serum or Plasma by Detection limit <= 0.01 ng/Ordered By: Pop Marie on 01-21-2024 Troponin I.cardiac DL <= 0.01 ng/mL [Mass/Vol] 4.2 pg/mL 0.0-15.0 [facility] Urea nitrogen [Mass/volume] in Serum or PlasmaOrdered By: Pop Marie on 01-21-2024 Urea nitrogen [Mass/Vol] 7 mg/dL Normal 7-25 [facility] Comment on above: Performed By: #### A 1C [facility] eA #### [place] [id number] [facility] Urine Cultureon 01-21-2024 Bacteria identified Cx Nom (U) >100,000 colonies/ml mixed bacterial skin contaminants 2 Days PERFORMED BY: [place] [address] PATHOLOGIST INTEGRITY MANAGER GONSALO BARKER M.D. Normal [facility] Comment on above: Performed By: #### C UU, KAMILAONDOYLEPLUS #### [facility] [address] Urine bacteria detection by automated methodOrdered By: Pop Marie on 01-21-2024 Bacteria Auto Ql (U) 2+ None Seen [facility] Urine clarity by refractomet ry automatedOrdered By: Pop Marie on 01-21-2024 Clarity Refractometry automated (U) Cloudy Clear [facility] Urine culture routineOrdered By: Pop Marie on 01-21-2024 Bacteria identified Cx Nom (U) 2 Days [facility] Urine glucose measurement by automated test strip (mass/volume)Ordered By: Pop Marie on 01-21-2024 Glucose Auto test strip (U) [Mass/Vol] Normal mg/dL Normal [facility] Urine hemoglobin detection b y automated test stripOrdered By: Pop Marie on 01-21-2024 Hemoglobin Auto test strip Ql (U) Negative Negative [facility] Urine leukocyte esterase det ection by automated test stripOrdered By: Pop Marie on 01-21-2024 Leukocyte esterase Auto test strip Ql (U) 3+ Negative [facility] Urine pH measurement by auto mated test stripOrdered By: Pop Marie on 01-21-2024 pH (U) 7.5 [pH] Normal 5.0-9.0 [facility] Comment on above: Order Comment: Name Collection Type:: Clean-Voided Midstream Performed By: #### C UU, SUSANAPLUS #### [facility] [address] [place], [place] [id number] [place] Urobilinogen Auto test strip (U) [Mass/Vol]Ordered By: Pop Marie on 01-21-2024 Urobilinogen (U) [Mass/Vol] Normal mg/dL Normal [facility] Whole blood creatinine measu rementOrdered By: Pop Marie on 01-21-2024 Creatinine [Mass/Vol] 0.9 mg/dL Normal 0.6-1.3 [facility] Comment on above: ER/ESD physician is notified/shown all ISTAT results.Critical values may be confirmed by laboratory testing ifdeemed necessary by ER attending doctor. Result Comment: ER/E SD physician is notified/shown all ISTAT results. Critical values may be confirmed by laboratory testing if deemed necessary by ER attending doctor. Performed By: #### T SH3 #### [address] XR chest 1V portableon 01-[address] [facility] [place] [address] [place] [address] XRay Report Signed Patient: Yarelis Swenson MR#: [id number] : 1970 Acct:[id number] Age/Sex: 53 / F ADM Date: 01/21/24 Loc: ER Room: Type: [facility] ER Attending Dr: Copies to: Pop [...] Danielito Haro M.D.01/21/2024 12:19 PM Dictation Location: [place] [address] Transcribed By: [facility] 01/21/24 121 Dictated By: Danielito Haro DO 01/21/24 1219 Signed By: 01/21/24 1219 Normal [facility] Serum or plasma trough vanco mycin levelOrdered By: Duke Morris on 07-25-2023 Vancomycin trough [Mass/Vol] 11.0 ug/mL 10.0-20.0 [facility] Comment on above: Last dose: - Physician Orderon 07-23-2023 Physician Order [id number] [id number] Normal [facility] Vanco Troughon 07-23-2023 VANCOMYCIN 7 microgram/mL Low 10-20 [facility] Comment on above: Performed By: #### 2 [id number] #### [facility] [address] [place] [id number] PROF CHEM 8 (BAS METB)on Anion gap [Moles/Vol] 14.5 mmol/L Normal [facility] Comment on above: Performed By: #### B MP #### [facility] [address] [place] [address] [address] Dimitri Veliz Calcium [Mass/Vol] 9.0 mg/dL Normal 8.5-10.1 [facility] Comment on above: Performed By: #### B MP #### [facility] [address] [place] [address] [address] Dimitri Veliz Chloride [Moles/Vol] 101 mmol/L Normal 98-107 [facility] Comment on above: Performed By: #### B MP #### [facility] [address] [place] [address] [address] Dimitri Veliz CO2 [Moles/Vol] 31.4 mmol/L Normal 21.0-32.0 [facility] Comment on above: Performed By: #### B MP #### [facility] [address] [place] [address] [address] Dimitri Veliz Creatinine [Mass/Vol] 0.82 mg/dL Normal 0.55-1.02 [facility] Comment on above: Performed By: #### B MP #### [facility] [address] [place] [address] [address] Dimitri Veliz EGFR-AF ZAMBIAN >60 Normal >=60 [facility] Comment on above: Performed By: #### B MP #### [facility] [address] [place] [address] [address] Dimitri Veliz EGFR-NON AF ZAMBIAN >60 Normal >=60 [facility] Comment on above: Performed By: #### B MP #### [facility] [address] [place] [address] [address] Dimitri Veliz Glucose [Mass/Vol] 96 mg/dL Normal 74-106 [facility] Comment on above: Performed By: #### B MP #### [facility] [address] [place] [address] [address] Dimitri Veliz Potassium [Moles/Vol] 3.9 mmol/L Normal 3.5-5.1 [facility] Comment on above: Performed By: #### B MP #### [facility] [address] [place] [address] [address] Dimitri Veliz Sodium [Moles/Vol] 143 mmol/L Normal 136-145 [facility] Comment on above: Performed By: #### B MP #### [facility] [address] [place] [address] [address] Dimitri Veliz Urea nitrogen [Mass/Vol] 10.0 mg/dL Normal 7.0-18.0 [facility] Comment on above: Performed By: #### B MP #### [facility] [address] [place] [address] Dr. Dimitri Veliz Urea nitrogen/Creatinine [Mass ratio] 12.2 mg/mg Normal [facility] Comment on above: Performed By: #### B MP #### [facility] [address] [place] [address] [address] Dimitri Veliz MRI ANKLE LT WO [...] JOEY MENEZES Date: 2023-02-17 07:43 Normal [facility] POINT OF CARE GLUCOSEon - Glucose [Mass/Vol] 99 mg/dL Normal 74-106 [facility] Comment on above: Performed By: #### P OCGLUC #### [facility] [address] [address] [address] Dimitri Veliz Glucose [Mass/Vol] 96 mg/dL Normal 74-106 [facility] Comment on above: Performed By: #### P OCGLUC ####[facility] Of[address] [place], [place] [address]GdDr. Dimitri Veliz Covid-19 PCR (CVDTB)on 11-29 SARS-CoV-2 (COVID-19) RNA TJ+probe Ql (Unsp spec) Not detected Normal NOT DETECTED [facility] Comment on above: Result Comment: This test is not yet approved or cleared by the [place] FDA. When there are no FDA-approved or cleared tests available, and other criteria are met, FDA can make tests available under an emergency access mechanism called an Emergency Use Authorization (EUA). The EUA for this test is supported by the [place] of Health and Human Service's (HHS's) declaration [...] SARS-CoV-2. Performed By: #### C VDTBH #### [facility] [id number] Dimitri Veliz PROF CHEM 8 (BAS METB)on Anion gap [Moles/Vol] 14.8 mmol/L Normal [facility] Comment on above: Performed By: #### B MP #### [facility] [address] [place], [place] [address] Dr. Dimitri Veliz Calcium [Mass/Vol] 9.4 mg/dL Normal 8.5-10.1 [facility] Comment on above: Performed By: #### B MP #### [facility] [address] [address] [address] Dimitri Veliz Chloride [Moles/Vol] 100 mmol/L Normal 98-107 [facility] Comment on above: Performed By: #### B MP #### [facility] [address] [address] [address] Dimitri Veliz CO2 [Moles/Vol] 25.1 mmol/L Normal 21.0-32.0 [facility] Comment on above: Performed By: #### B MP #### [facility] [address] [address] [address] Dimitri Veliz Creatinine [Mass/Vol] 0.95 mg/dL Normal 0.55-1.02 [facility] Comment on above: Performed By: #### B MP #### [facility] [address] [address] [address] Dimitri Veliz EGFR-AF ZAMBIAN >60 Normal >=60 [facility] Comment on above: Performed By: #### B MP #### [facility] [address] [address] [address] Dimitri Veliz EGFR-NON AF ZAMBIAN >60 Normal >=60 [facility] Comment on above: Performed By: #### B MP #### [facility] [address] [address] [address] Dimitri Veliz Glucose [Mass/Vol] 82 mg/dL Normal 74-106 [facility] Comment on above: Performed By: #### B MP #### [facility] [address] [address] [address] Dimitri Veliz Potassium [Moles/Vol] 3.9 mmol/L Normal 3.5-5.1 [facility] Comment on above: Performed By: #### B MP #### [facility] [address] [place] [address] Dr. Dimitri Veliz Sodium [Moles/Vol] 136 mmol/L Normal 136-145 [facility] Comment on above: Performed By: #### B MP #### [facility] [address] [address] [address] Dimitri Veliz Urea nitrogen [Mass/Vol] 12.0 mg/dL Normal 7.0-18.0 [facility] Comment on above: Performed By: #### B MP #### [facility] [address] [address] [address] Dimitri Veliz Urea nitrogen/Creatinine [Mass ratio] 12.6 mg/mg Normal [facility] Comment on above: Performed By: #### B MP #### [facility] [address] [address] [address] Dimitri Veliz XR ANKLE LT MIN 3 Von 2022 XR ANKLE LT MIN 3 V EXAM: XR ANKLE LT GA N 3 V HISTORY: Arthralgia of the [...] SUNSHINE DUBON Date: 2022-12-09 05:04 Normal [facility] US Carotid, Bilateralon - US Carotid, Bilateral CLINICAL HISTORY: History of [...] by Gabe Hayes on 10/19/2022 1050 Normal [facility] Summer Associate BNPon 10-06-2022 Natriuretic peptide B (Bld) [Mass/Vol] 19.0 pg/mL Normal <=900.0 [facility] Comment on above: Performed By: #### B CAREER TECHNICAL SUPERVISOR, AUGUSTO, CMP ####[facility] [address] [place], [place] [address]Sj. Dimitri Jose Alfredo CARDIAC ALICIA ADMITon 022 CK [Catalytic activity/Vol] 94 U/L Normal 26-192 [facility] [place] [facility] Comment on above: Performed By: #### B CAREER TECHNICAL SUPERVISOR, CMADM, CMP ####[facility] [address] [place], [place] [address]Ji. Dimitri Veliz CK.MB [Mass/Vol] 2.43 ng/mL Normal <=3.60 [facility] Comment on above: Performed By: #### B CAREER TECHNICAL SUPERVISOR, CMADM, CMP ####[facility] [address] [id number]. Dianajayant Veliz HSTROP 11.2 pg/mL Normal 4.0-51.3 [facility] Comment on above: Result Comment: CUT- OFF POINTS HAVE BEEN ESTABLISHED BASED ON THE FOURTH UNIVERSAL DEFINITIONS OF MYOCARDIAL INFARCTION. THE UPPER REFERENCE LIMIT (URL) OF TROPONIN, DEFINED THE 99TH PERCENTILE OF cTnI DISTRIBUTION IN A REFERENCE POPULATION, HAS BEEN CONFIRMED THE DECISION THRESHOLD FOR GA DIAGNOSIS. Performed By: #### B CAREER TECHNICAL SUPERVISOR, CMADM, CMP ####[facility] [address] [id number]. Dimitri Jose Alfredo KAY 60 ng/mL Normal 9-82 [facility] [place] [facility] Comment on above: Performed By: #### B CAREER TECHNICAL SUPERVISOR, CMADM, CMP ####[facility] [address] [id number]. Dimitri Veliz CBC AUTO DIFFon 10-06-2022 BASO # 0.1 103/ul Normal 0.0-0.1 [facility] Comment on above: Performed By: #### C BC ####[facility] [address] [id number]. Dimitir Veliz Basophils/100 WBC (Bld) 1.1 % Normal 0.2-2.0 [facility] [place] [facility] Comment on above: Performed By: #### C BC ####[facility] [address] [id number]. Dimitri Veliz EO # 0.3 103/ul Normal 0.0-0.7 [facility] Comment on above: Performed By: #### C BC ####[facility] [address] [address]Dr. Dimitri Veliz Eosinophils/100 WBC (Bld) 3.3 % Normal 0.9-7.0 [facility] Comment on above: Performed By: #### C BC ####[facility] [address] [place], [place] [address]Dr. Dimitri Veliz Erythrocyte distribution width (RBC) [Ratio] 13.0 % Normal 11.0-15.0 [facility] Comment on above: Performed By: #### C BC ####[facility] G[address] [place], [place] [address]Dr. Dimitri Veliz Hematocrit (Bld) [Volume fraction] 38.1 % Normal 36.0-48.0 [facility] Comment on above: Performed By: #### C BC ####[facility] Lunblc[address]qs[address] [place], [place] [address]Dr. Dimitri Veliz Hemoglobin (Bld) [Mass/Vol] 12.8 g/dL Normal 12.0-16.0 [facility] Comment on above: Performed By: #### C BC ####[facility] Pubjcrzagp[address] [place], [place] [address]Dr. Dimitri Veliz IG # 0.03 10e3/ul Normal 0.00-0.03 [facility] Comment on above: Performed By: #### C BC ####[facility] X[address] [place], [place] [address]Dr. Dimitri Veliz IG % 0.4 % Normal 0.0-0.5 [facility] Comment on above: Performed By: #### C BC ####[facility] Dpinx[address]rxv[address] [place], [place] [address]Dr. Dimitri Veliz LYMPH # 2.2 103/ul Normal 1.2-3.8 [facility] Comment on above: Performed By: #### C BC ####[facility] [address] [place], [place] [address]Dr. Dimitri Veliz Lymphocytes/100 WBC (Bld) 25.7 % Normal 20.5-60.0 [facility] Comment on above: Performed By: #### C BC ####[facility] [address] [address]Dr. Dimitri Veliz MANUAL DIFF REQ NO Normal [facility] Comment on above: Performed By: #### C BC ####[facility] [address] [phone]. Dimitri Veliz MCH (RBC) [Entitic mass] 30.1 pg Normal 26.7-34.0 [facility] Comment on above: Performed By: #### C BC ####[facility] [address] [address]Dr. Dimitri Veliz MCHC (RBC) [Mass/Vol] 33.6 g/dL Normal 29.9-35.2 [facility] Comment on above: Performed By: #### C BC ####[facility] Z[address]ys[address] [place], [place] [address]Dr. Dimitri Veliz MCV (RBC) [Entitic vol] 89.6 fL Normal 81.0-99.0 [facility] Comment on above: Performed By: #### C BC ####[facility] [address] [place], [place] [address]Dr. Dimitri Veliz MONO # 0.7 103/ul Normal 0.3-0.8 [facility] Comment on above: Performed By: #### C BC ####[facility] Iq[address]so[address]ch[address] [place], [place] [address]Dr. Dimitri Veliz Monocytes/100 WBC (Bld) 7.9 % Normal 1.7-12.0 [facility] Comment on above: Performed By: #### C BC ####[facility] [address]chv[address] [place], [place] [address]Dr. Dimitri Veliz NEUT # 5.2 103/ul Normal 1.4-6.5 [facility] Comment on above: Performed By: #### C BC ####[facility] [address]fqu[address] [place], [place] [address]Dr. Dimitri Veliz Neutrophils/100 WBC (Bld) 61.6 % Normal 43.0-75.0 [facility] Comment on above: Performed By: #### C BC ####[facility] [address] [address]Dr. Dimitri Jose Alfredo Platelet mean volume (Bld) [Entitic vol] 8.9 fL Critically low 9.5-13.5 [facility] Comment on above: Performed By: #### C BC ####[facility] [address] [address]Dr. Dianajayant Jose Alfredo PLT 429 103/ul Normal 150-450 [facility] Comment on above: Performed By: #### C BC ####[facility] Muip[address] [place], [place] [address]Dr. Dimitri Veliz RBC 4.25 106/ul Normal 4.20-5.40 [facility] Comment on above: Performed By: #### C BC ####[facility] X[address] [place], [place] [address]Dr. Dimitri Veliz WBC 8.5 103/ul Normal 4.0-11.0 [facility] Comment on above: Performed By: #### C BC ####[facility] Qqq[address]li[address] [place], [place] [address]Dr. Dimitri Veliz ER URINE PROFILEon 2 Bilirubin Ql (U) Negative Normal NEGATIVE [facility] Comment on above: Performed By: #### U MICRO, ERUR ####[facility] [address]te[address] [place], [place] [address]Dr. Dimitri Veliz Clarity (U) CLEAR Normal CLEAR [facility] Comment on above: Performed By: #### U MICRO, ERUR ####[facility] [address] [address]Dr. Dimitri Veliz Color (U) YELLOW Normal YELLOW [facility] Comment on above: Performed By: #### U MICRO, ERUR ####[facility] [address] [place], [place] [address]Dr. Dimitri Veliz ERUAHD A micrscopic examina tion will be performed if indicated. Normal [facility] Comment on above: Performed By: #### U MICRO, ERUR ####[facility] [address] [address]Dr. Dimitri Veliz Glucose Ql (U) Negative Normal NEGATIVE [facility] [place] [facility] Comment on above: Performed By: #### U MICRO, ERUR ####[facility] [address]spr[address] [address]Dr. Dimitri Veliz Hemoglobin Ql (U) TRACE-INTACT Abnormal NEGATIVE [facility] Comment on above: Performed By: #### U MICRO, ERUR ####[facility] [address] [address]Dr. Dimitri Veliz Ketones Ql (U) Negative Normal NEGATIVE [facility] [place] [facility] Comment on above: Performed By: #### U MICRO, ERUR ####[facility] F[address]ix[address] [place], [place] [address]Dr. Dianajayant Veliz LEUKOCYTES Negative Normal NEGATIVE [facility] Comment on above: Performed By: #### U MICRO, ERUR ####[facility] Ogfxs[address] [place], [place] [address]Dr. Dimitri Veliz Nitrite Ql (U) Negative Normal NEGATIVE [facility] Comment on above: Performed By: #### U MICRO, ERUR ####[facility] X[address]kcib[address] [place], [place] [address]Dr. Dimitri Veliz pH (U) 6.0 [pH] Normal 5-9 [facility] Comment on above: Performed By: #### U MICRO, ERUR ####[facility] V[address] [place], [place] [address]Dr. Dimitri Veliz SPEC GRAVITY 1.025 Normal 1.005-<=1. 025 [facility] Comment on above: Performed By: #### U MICRO, ERUR ####[facility] [address] [place], [place] [address]Dr. Dimitri Veliz UA PROTEIN Negative Normal NEGATIVE/ TRACE [facility] Comment on above: Performed By: #### U MICRO, ERUR ####[facility] [address] [place], [place] [address]Dr. Dimitri Veliz UR MICRO IND INDICATED Normal [facility] Comment on above: Performed By: #### U MICRO, ERUR ####[facility] [address] [address]Dr. Dimitri Veliz Urobilinogen Qn (U) 0.2 {Padmini'U}/dL Normal 0.2 - 1. 0 [facility] Comment on above: Performed By: #### U MICRO, ERUR ####[facility] [address] [address]Dr. Dimitri Veliz PROF 14(COMP METB)on 022 Albumin [Mass/Vol] 4.0 g/dL Normal 3.4-5.0 [facility] Comment on above: Performed By: #### B CAREER TECHNICAL SUPERVISOR, CMADM, CMP ####[facility] [address] [address]Dr. Dimitri Veliz Albumin/Globulin [Mass ratio] 1.0 {ratio} Normal [facility] Comment on above: Performed By: #### B CAREER TECHNICAL SUPERVISOR, CMADM, CMP ####[facility] [address] [address]Dr. Dimitri Veliz ALP [Catalytic activity/Vol] 91 U/L Normal 46-116 [facility] Comment on above: Performed By: #### B CAREER TECHNICAL SUPERVISOR, CMADM, CMP ####[facility] [address] [address]Dr. Dimitri Veliz ALT [Catalytic activity/Vol] 34 U/L Normal 14-59 [facility] Comment on above: Performed By: #### B CAREER TECHNICAL SUPERVISOR, CMADM, CMP ####[facility] [address] [address]Dr. Dimitri Veliz Anion gap [Moles/Vol] 8.6 mmol/L Normal [facility] Comment on above: Performed By: #### B CAREER TECHNICAL SUPERVISOR, CMADM, CMP ####[facility] [address] [address]Dr. Dimitri Veliz AST [Catalytic activity/Vol] 18 U/L Normal 15-37 [facility] Comment on above: Performed By: #### B CAREER TECHNICAL SUPERVISOR, CMADM, CMP ####[facility] [address] [address]Dr. Dimitri Veliz Bilirubin [Mass/Vol] 0.5 mg/dL Normal 0.2-1.0 [facility] Comment on above: Performed By: #### B CAREER TECHNICAL SUPERVISOR, CMADM, CMP ####[facility] [address] [address]Dr. Dimitri Veliz Calcium [Mass/Vol] 9.5 mg/dL Normal 8.5-10.1 [facility] Comment on above: Performed By: #### B CAREER TECHNICAL SUPERVISOR, CMADM, CMP ####[facility] [address] [address]Dr. Dimitri Veliz Chloride [Moles/Vol] 101 mmol/L Normal 98-107 [facility] Comment on above: Performed By: #### B CAREER TECHNICAL SUPERVISOR, CMADM, CMP ####[facility] [address] [address]Dr. Dmiitri Veliz CO2 [Moles/Vol] 29.1 mmol/L Normal 21.0-32.0 [facility] Comment on above: Performed By: #### B CAREER TECHNICAL SUPERVISOR, CMADM, CMP ####[facility] [address] [address]Dr. Dimitri Veliz Creatinine [Mass/Vol] 0.86 mg/dL Normal 0.55-1.02 [facility] Comment on above: Performed By: #### B CAREER TECHNICAL SUPERVISOR, CMADM, CMP ####[facility] [address] [address]Dr. Dimitri Veliz EGFR-AF ZAMBIAN >60 Normal >=60 [facility] Comment on above: Performed By: #### B CAREER TECHNICAL SUPERVISOR, CMADM, CMP ####[facility] [address] [address]Dr. Dimitri Veliz EGFR-NON AF ZAMBIAN >60 Normal >=60 [facility] Comment on above: Performed By: #### B CAREER TECHNICAL SUPERVISOR, CMADM, CMP ####[facility] [address] [address]Dr. Dimitri Veliz Globulin (S) [Mass/Vol] 4.0 g/dL Normal [facility] Comment on above: Performed By: #### B CAREER TECHNICAL SUPERVISOR, CMADM, CMP ####[facility] [address] [address]Dr. Dimitri Veliz Glucose [Mass/Vol] 110 mg/dL Critically high 74-106 [facility] Comment on above: Performed By: #### B CAREER TECHNICAL SUPERVISOR, CMADM, CMP ####[facility] [address] [address]Dr. Dimitri Veliz Potassium [Moles/Vol] 3.7 mmol/L Normal 3.5-5.1 [facility] Comment on above: Performed By: #### B CAREER TECHNICAL SUPERVISOR, CMADM, CMP ####[facility] [address]mp[address] [address]Dr. Dimitri Veliz Protein [Mass/Vol] 8.0 g/dL Normal 6.4-8.2 [facility] Comment on above: Performed By: #### B CAREER TECHNICAL SUPERVISOR, CMADM, CMP ####[facility] [address] [address]Dr. Dimitri Veliz Sodium [Moles/Vol] 135 mmol/L Critically low 136-145 [facility] Comment on above: Performed By: #### B CAREER TECHNICAL SUPERVISOR, CMADM, CMP ####[facility] [address] [address]Dr. Dimitri Veliz Urea nitrogen [Mass/Vol] 14.0 mg/dL Normal 7.0-18.0 [facility] Comment on above: Performed By: #### B CAREER TECHNICAL SUPERVISOR, CMADM, CMP ####[facility] [address] [address]Dr. Dimitri Veliz Urea nitrogen/Creatinine [Mass ratio] 16.3 mg/mg Normal [facility] Comment on above: Performed By: #### B CAREER TECHNICAL SUPERVISOR, CMADM, CMP ####[facility] [address] [address]Dr. Dimitri Jose Alfredo URINE MICROSCOPIC ONLYon BACTERIA NONE SEEN Normal NONE SEEN [facility] Comment on above: Performed By: #### U MICRO, ERUR ####[facility] [address] [address]Dr. Dimitri Veliz Bacteria identified Cx Nom (U) NOT INDICATED Normal [facility] Comment on above: Performed By: #### U MICRO, ERUR ####[facility] [address] [address]Dr. Dimitri Veliz CAST NONE SEEN Normal NONE SEEN [facility] Comment on above: Performed By: #### U MICRO, ERUR ####[facility] [address]afxvt[address] [address]Dr. Dimitri Veliz Crystals LM Nom (Urine sed) NONE SEEN Normal NONE SEEN [facility] Comment on above: Performed By: #### U MICRO, ERUR ####[facility] [address] [address]Dr. Dimitri Veliz Epithelial cells LM Ql (Urine sed) MODERATE Abnormal NONE SEEN /RARE [facility] Comment on above: Performed By: #### U MICRO, ERUR ####[facility] [address] [address]Dr. Dimitri Veliz MUCOUS NONE SEEN Normal NONE SEEN [facility] Comment on above: Performed By: #### U MICRO, ERUR ####[facility] X[address] [place], [place] [address]Dr. Dimitri Veliz RBC 2-5 Abnormal 0-2 [facility] Comment on above: Performed By: #### U MICRO, ERUR ####[facility] [address] [address]Dr. Dimitri Veliz WBC NONE SEEN Normal NONE SEEN [facility] Comment on above: Performed By: #### U MICRO, ERUR ####[facility] [address] [place], [place] [address]Dr. Dimitri Jose Alfredo XR CHEST 2 Von 10-06-2022 XR CHEST [...] SHELBY ECHAVARRIA Date: 2022-10-06 13:59 Normal [facility] CT ABD/PELVIS WO CONon 08-06 CT [...] WILLIAM CLAUDIO Date: 2022-08-06 08:52 Normal [facility] ER URINE PROFILEon 2 Bilirubin Ql (U) Negative Normal NEGATIVE [facility] Comment on above: Performed By: #### MONSTER SHEPARD #### [facility] [address] [place] [address] Dr. Dimitri Veliz Clarity (U) CLEAR Normal CLEAR [facility] Comment on above: Performed By: #### MONSTER SHEPARD #### [facility] [address] [place] [address] Dr. Dimitri Veliz Color (U) LT. YELLOW Normal YELLOW [facility] Comment on above: Performed By: #### MONSTER SHEPARD #### [facility] [address] [place] [address] Dr. Dimitri ESQUIVEL A micrscopic examina tion will be performed if indicated. Normal [facility] Comment on above: Performed By: #### Kevin MIMS UMICRO #### [facility] [address] [place] [address] Dr. Dimitri Veliz Glucose Ql (U) Negative Normal NEGATIVE [facility] Comment on above: Performed By: #### Kevin MIMS UMICRO #### [facility] [address] [place] [address] Dr. Dimitri Veliz Hemoglobin Ql (U) SMALL Abnormal NEGATIVE [facility] Comment on above: Performed By: #### Kevin MIMS UMICRO #### [facility] [address] [place] [address] Dr. Dimitri Veliz Ketones Ql (U) Negative Normal NEGATIVE [facility] Comment on above: Performed By: #### Kevin MIMS UMICRO #### [facility] [address] [place] [address] Dr. Dimitri Veliz LEUKOCYTES Negative Normal NEGATIVE [facility] Comment on above: Performed By: #### Kevin MIMS UMICRO #### [facility] [address] [place] [address] Dr. Dimitri Veliz Nitrite Ql (U) Negative Normal NEGATIVE [facility] Comment on above: Performed By: #### Kevin MIMS UMICRO #### [facility] [address] [place] [address] Dr. Dimitri Veliz pH (U) 6.0 [pH] Normal 5-9 [facility] Comment on above: Performed By: #### Kevin MIMS UMICRO #### [facility] [address] [place] [address] Dr. Dimitri Veliz SPEC GRAVITY 1.025 Normal 1.005-<=1. 025 [facility] Comment on above: Performed By: #### Kevin MIMS UMICRO #### [facility] [address] [place] [address] Dr. Dimitri Veliz UA PROTEIN Negative Normal NEGATIVE/ TRACE [facility] Comment on above: Performed By: #### E RUR, UMICRO #### [facility] [address] [place] [address] Dr. Dimitri Veliz UR MICRO IND INDICATED Normal [facility] Comment on above: Performed By: #### E RUR, UMICRO #### [facility] [address] [place] [address] Dr. Dimitri Veliz Urobilinogen Qn (U) 0.2 {Padmini'U}/dL Normal 0.2 - 1. 0 [facility] Comment on above: Performed By: #### E RUR, UMICRO #### [facility] [address] [place] [address] Dr. Dimitri Veliz URINE MICROSCOPIC ONLYon BACTERIA TRACE Abnormal NONE SEEN [facility] Comment on above: Performed By: #### E RUR, UMICRO #### [facility] [address] [place] [address] Dr. Dimitri Veliz Bacteria identified Cx Nom (U) NOT INDICATED Normal [facility] Comment on above: Performed By: #### E RUR, UMICRO #### [facility] [address] [place] [address] Dr. Dimitri Veliz CAST NONE SEEN Normal NONE SEEN [facility] Comment on above: Performed By: #### E RUR, UMICRO #### [facility] [address] [place] [address] Dr. Dimitri Veliz Crystals LM Nom (Urine sed) NONE SEEN Normal NONE SEEN [facility] Comment on above: Performed By: #### E RUR, UMICRO #### [facility] [address] [place] [address] Dr. Dimitri Veliz Epithelial cells LM Ql (Urine sed) MODERATE Abnormal NONE SEEN /RARE [facility] Comment on above: Performed By: #### E RUR, UMICRO #### [facility] [address] [place] [address] Dr. Dimitri Veliz MUCOUS NONE SEEN Normal NONE SEEN [facility] Comment on above: Performed By: #### E RUR, UMICRO #### [facility] [address] [address] [address] Dimitri Veliz RBC 2-5 Abnormal 0-2 [facility] Comment on above: Performed By: #### MONSTER SHEPARD #### [facility] [address] [place], [place] [address] Dr. Dimitri Veliz WBC 0-2 Abnormal NONE SEEN [facility] Comment on above: Performed By: #### MONSTER SHEPARD #### [facility] [id number] Dimitri Veliz XR LSPINE 2_3 VIEWSon [...] JANNETTE QUINN Date: 2022-08-06 08:26 Normal [facility] XR knee RT 4V*on 07-22-2022 XR knee RT 4V* [facility] [employer] Other XR knee RT 4V* [facility] [employer] Other XR knee RT 4V* [address] [place] [address] [employer] Other XR knee RT 4V* [place] [address] No rt [employer] Other XR knee RT 4V* XRay Report [employer] Other XR knee RT 4V* Signed [employer] Other XR knee RT 4V* Patient: Eva Swenson raza Chasity MR#: [id number] [employer] Other XR knee RT 4V* [address] [employer] Other XR knee RT 4V* : 1970 Acct:[id number] [employer] Other XR knee RT 4V* Age/Sex: 52 / F ADM Date: 07/22/22 [employer] Other XR knee RT 4V* Loc: [id number] Room: pe: REG CLI [employer] Other XR knee RT 4V* Attending Dr: Abel Wan [facility] [employer] Other XR knee RT 4V* Copies to: Abel go [facility] [place] Other XR knee RT 4V* Ordering Provider: Candace Esteves [employer] Other XR knee RT 4V* Date of Service: 07/22/22 [employer] Other XR knee RT 4V* XR/XR knee RT 4V*: Acute pain of right knee [employer] Other XR knee RT 4V* 4 views RIGHT knee p paul film [employer] Other XR knee RT 4V* COMPARISON:None [employer] Other XR knee RT 4V* HISTORY:Chronic RIGH T knee pain for several months. [employer] Other XR knee RT 4V* No fracture, disloca tion or focal soft tissue abnormality seen.No joint effusion identified. [employer] Other XR knee RT 4V* X R/XR knee RT 4V* [employer] Other XR knee RT 4V* IMPRESSION:No acute findings [employer] Other XR knee RT 4V* Impression dictated by: Danielito Haro M.D.07/22/2022 5:37 PM [employer] Other XR knee RT 4V* Dictation Location: [place] [address] [employer] Other XR knee RT 4V* Transcribed By: PWS 07/22/221736 [employer] Other XR knee RT 4V* Dictated By: Jesus Haro DO 07/22/221731 [employer] Other XR knee RT 4V* Signed By: [employer] Other XR knee RT 4V* 07/22/221736 [employer] Other Complete Blood Counton 04-23 Erythrocyte distribution width (RBC) [Ratio] 13.1 % Normal 11.0-15.0 [facility] Comment on above: Performed By: #### L IPD, CMP, CBC #### [facility] [address], [place] [id number] Hematocrit (Bld) [Volume fraction] 39.9 % Normal 35.0-47.0 [facility] Comment on above: Performed By: #### L IPD, CMP, CBC #### [facility] [address], [place] [id number] Hemoglobin (Bld) [Mass/Vol] 12.8 g/dL Normal 11.6-15.5 [facility] Comment on above: Performed By: #### L IPD, CMP, CBC #### [facility] [address], [place] [id number] MCH (RBC) [Entitic mass] 29.9 pg Normal 27.0-33.0 [facility] Comment on above: Performed By: #### L IPD, CMP, CBC #### [facility] [address], [place] [id number] MCHC (RBC) [Mass/Vol] 32.1 g/dL Normal 32.0-36.0 [facility] [place] [facility] Comment on above: Performed By: #### L IPD, CMP, CBC #### [facility] [address], [place] [id number] MCV (RBC) [Entitic vol] 93 fL Normal 80-100 [facility] [place] [facility] Comment on above: Performed By: #### L IPD, CMP, CBC #### [facility] [address], [place] [id number] Platelet mean volume (Bld) [Entitic vol] 9.00 fL Normal 7.50-12.50 [facility] Comment on above: Performed By: #### L IPD, CMP, CBC #### [facility] [address], [place] [id number] Platelets (Bld) [#/Vol] 336 10*3/uL Normal 140-400 [facility] Comment on above: Performed By: #### L IPD, CMP, CBC #### [facility] [address], [place] [id number] RBC (Bld) [#/Vol] 4.28 10*6/uL Normal 3.90-5.20 [facility] Comment on above: Performed By: #### L IPD, CMP, CBC #### [facility] [address], [place] [id number] RDW-SD 44.9 fL Normal 37.0-50.0 [facility] [place] [facility] Comment on above: Performed By: #### L IPD, CMP, CBC #### [facility] [address], [place] [id number] WBC (Bld) [#/Vol] 7.0 10*3/uL Normal 3.8-11.0 [facility] Comment on above: Performed By: #### L IPD, CMP, CBC #### [facility] [address], [place] [id number] Comprehensive Metabolic Pane [facility] 04-23-2022 Albumin [Mass/Vol] 4.5 g/dL Normal 3.6-5.1 Bran [facility] Comment on above: Performed By: #### L IPD, CMP, CBC #### [facility] [address], [place] [id number] Albumin/Globulin [Mass ratio] 1.8 {ratio} Normal 1.0-2.5 [facility] Comment on above: Performed By: #### L IPD, CMP, CBC #### [facility] [address], [place] [id number] ALP [Catalytic activity/Vol] 82 U/L Normal 35-119 [facility] Comment on above: Performed By: #### L IPD, CMP, CBC #### [facility] [address], [place] [id number] ALT [Catalytic activity/Vol] 44 U/L High 6-33 [facility] Comment on above: Result Comment: 10/29 Female reference range changed. Performed By: #### L IPD, CMP, CBC #### [facility] [address], [place] [id number] Anion gap [Moles/Vol] 17 mmol/L Normal 12-20 [facility] Comment on above: Result Comment: Effe ctive 12/04/2019 reference range changed. Performed By: #### L IPD, CMP, CBC #### [facility] [address], [place] [id number] AST [Catalytic activity/Vol] 34 U/L Normal 9-34 [facility] Comment on above: Performed By: #### L IPD, CMP, CBC #### [facility] [address], [place] [id number] Bilirubin [Mass/Vol] 0.33 mg/dL Normal 0.30-1.20 [facility] Comment on above: Performed By: #### L IPD, CMP, CBC #### [facility] [address], [place] [id number] BUN/CREA 16 Ratio Normal 6-22 [facility] Comment on above: Performed By: #### L IPD, CMP, CBC #### [facility] [address], [place] [id number] Calcium [Mass/Vol] 9.4 mg/dL Normal 8.6-10.2 [facility] Comment on above: Performed By: #### L IPD, CMP, CBC #### [facility] [address], [place] [id number] Chloride [Moles/Vol] 101 mmol/L Normal 98-107 [facility] Comment on above: Performed By: #### L IPD, CMP, CBC #### [facility] [address], [place] [id number] CO2 [Moles/Vol] 24 mmol/L Normal 20-31 [facility] Comment on above: Performed By: #### L IPD, CMP, CBC #### [facility] [address], [place] [id number] Creatinine [Mass/Vol] 0.8 mg/dL Normal 0.6-1.4 [facility] Comment on above: Performed By: #### L IPD, CMP, CBC #### [facility] [address], [place] [id number] eGFRAA 91 mL/min/1.73m2 Normal >60 [facility] Comment on above: Performed By: #### L IPD, CMP, CBC #### [facility] [address], [place] [id number] eGFRNAA 75 mL/min/1.73m2 Normal >60 [facility] Comment on above: Performed By: #### L IPD, CMP, CBC #### [facility] [address], [place] [id number] Globulin (S) [Mass/Vol] 2.5 g/dL Normal 1.9-3.7 [facility] Comment on above: Performed By: #### L IPD, CMP, CBC #### [facility] [address], [place] [id number] Glucose [Mass/Vol] 92 mg/dL Normal 65-99 [facility] Comment on above: Result Comment: For FASTING Glucose --- ADA reference ranges: Normal 65-99 mg/dl Prediabetes 100-125 Diabetes >/= 126 Performed By: #### L IPD, CMP, CBC #### [facility] [address], [place] [id number] Potassium [Moles/Vol] 4.1 mmol/L Normal 3.5-5.5 [facility] Comment on above: Performed By: #### L IPD, CMP, CBC #### [facility] [address], [place] [id number] Protein [Mass/Vol] 7.0 g/dL Normal 6.1-8.1 [facility] Specialist Comment on above: Performed By: #### L IPD, CMP, CBC #### [facility] [address], [place] [id number] Sodium [Moles/Vol] 137 mmol/L Normal 135-146 [facility] Comment on above: Performed By: #### L IPD, CMP, CBC #### [facility] [address], [place] [id number] Urea nitrogen [Mass/Vol] 13 mg/dL Normal 7-25 [facility] [place] [facility] Comment on above: Performed By: #### L IPD, CMP, CBC #### [facility] [address], [place] [id number] Lipid Panelon 04-23-2022 Cholesterol [Mass/Vol] 332 mg/dL High 125-200 [facility] on above: Result Comment: Low risk < 200mg/dL Borderline risk 201-239 mg/dl High risk > or equal to 240 Performed By: #### L IPD, CMP, CBC #### [facility] [address], [place] [id number] Cholesterol in HDL [Mass/Vol] 50 mg/dL Normal >40 [facility] [place] [facility] Comment on above: Result Comment: High Cardiovascular Risk HDL <40 mg/dL Low Cardiovascular Risk HDL > or equal to 60 mg/dl Performed By: #### L IPD, CMP, CBC #### [facility] [address], [place] [id number] Cholesterol in LDL [Mass/Vol] 230 mg/dL Normal [facility] [place] [facility] Comment on above: Result Comment: LDL ATP III CLASSIFICATION LDL less than 100 mg/dl Optimal LDL 100-129 mg/dl Near or above optimal LDL 130-159 Borderline high LDL 160-189 High LDL greater than 189 mg/dl Very High Performed By: #### L IPD, CMP, CBC #### [facility] [address], [place] [id number] Cholesterol in VLDL [Mass/Vol] 52 mg/dL Normal [facility] Comment on above: Performed By: #### L IPD, CMP, CBC #### [facility] [address], [place] [id number] Cholesterol.total/Chol esterol in HDL [Mass ratio] 7 {ratio} Normal [facility] [place] [facility] Comment on above: Performed By: #### L IPD, CMP, CBC #### [facility] [address], [place] [id number] Triglyceride [Mass/Vol] 258 mg/dL High 30-150 [facility] Comment on above: Result Comment: TRIG ATPIII CLASSIFICATIONS TRIG less than 150 mg/dl Normal TRIG 150-199 mg/dl Borderline High TRIG 200-500 mg/dl High TRIG greather than 500 mg/dl Very High Performed By: #### L IPD, CMP, CBC #### [facility] [address], [place] [id number] Complete Blood Count with Au to Diffon 01-21-2022 Basophils (Bld) [#/Vol] 0.08 10*3/uL Normal 0.00-0.20 [facility] [place] [facility] Comment on above: Performed By: #### L IPD, CMP, CBCAD #### [facility] [address], [place] [id number] Basophils/100 WBC (Bld) 1.0 % Normal [facility] [place] [facility] Comment on above: Performed By: #### L IPD CMP, CBCAD #### [facility] [address], [place] [id number] Eosinophils (Bld) [#/Vol] 0.29 10*3/uL Normal 0.02-0.50 [facility] [place] [facility] Comment on above: Performed By: #### L IPD, CMP, CBCAD #### [facility] [address], [place] [id number] Eosinophils/100 WBC (Bld) 3.5 % Normal [facility] [place] [facility] Comment on above: Performed By: #### L IPD, CMP, CBCAD #### [facility] [address], [place] [id number] Erythrocyte distribution width (RBC) [Ratio] 13.2 % Normal 11.0-15.0 [facility] [place] [facility] Comment on above: Performed By: #### L IPD, CMP, CBCAD #### [facility] [address], [place] [id number] Hematocrit (Bld) [Volume fraction] 38.8 % Normal 35.0-47.0 [facility] Comment on above: Performed By: #### L IPD, CMP, CBCAD #### [facility] [address], [place] [id number] Hemoglobin (Bld) [Mass/Vol] 12.6 g/dL Normal 11.6-15.5 [facility] Comment on above: Performed By: #### L IPD, CMP, CBCAD #### [facility] [address], [place] [id number] Lymphocytes (Bld) [#/Vol] 3.5 10*3/uL Normal 0.9-3.9 [facility] Comment on above: Performed By: #### L IPD, CMP, CBCAD #### [facility] [address], [place] [id number] Lymphocytes/100 WBC (Bld) 42.2 % Normal [facility] Comment on above: Performed By: #### L IPD, CMP, CBCAD #### [facility] [address], [place] [id number] MCH (RBC) [Entitic mass] 29.6 pg Normal 27.0-33.0 [facility] Comment on above: Performed By: #### L IPD, CMP, CBCAD #### [facility] [address], [place] [id number] MCHC (RBC) [Mass/Vol] 32.5 g/dL Normal 32.0-36.0 [facility] Comment on above: Performed By: #### L IPD, CMP, CBCAD #### [facility] [address], [place] [id number] MCV (RBC) [Entitic vol] 91 fL Normal 80-100 [facility] Comment on above: Performed By: #### L IPD, CMP, CBCAD #### [facility] [address], [place] [id number] Monocytes (Bld) [#/Vol] 0.6 10*3/uL Normal 0.2-0.9 [facility] Comment on above: Performed By: #### L IPD, CMP, CBCAD #### [facility] [address], [place] [id number] Monocytes/100 WBC (Bld) 7.4 % Normal [facility] Comment on above: Performed By: #### L IPD, CMP, CBCAD #### [facility] [address], [place] [id number] Neutrophils (Bld) [#/Vol] 3.8 10*3/uL Normal 1.5-7.8 [facility] Comment on above: Performed By: #### L IPD, CMP, CBCAD #### [facility] [address], [place] [id number] Neutrophils/100 WBC (Bld) 45.5 % Normal [facility] Comment on above: Performed By: #### L IPD, CMP, CBCAD #### [facility] [address], [place] [id number] Platelet mean volume (Bld) [Entitic vol] 9.20 fL Normal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 Work Phone: [facility] 08-25-2022 Influenza, injectable, Madin Radha Canine Kidney, preservative free, quadrivalent Roverto Gillian-Nossek INFECTION CONTROL COORDINATOR-JUKEBOX CHECKER Work Phone: [facility] 04-05-2021 Moderna SARS-CoV-2 Vaccination Roverto Gillian-Nossek INFECTION CONTROL COORDINATOR-JUKEBOX CHECKER Work Phone: [facility] 09-16-2020 influenza, injectable, quadrivalent, preservative free PHYSICIAN [facility] 09-16-2020 influenza, injectable, quadrivalent, contains preservative Britney Asia Other [employer] Other 09-18-2019 influenza, injectable, quadrivalent, preservative free PHYSICIAN NO [facility] 09-18-2019 influenza, injectable, quadrivalent, contains preservative Britney Asia Other [employer] Other 12-09-2017 influenza, injectable, quadrivalent, preservative free Roverto Gillian-Nossek INFECTION CONTROL COORDINATOR-JUKEBOX CHECKER Work Phone: [facility] NEGATED: Highlighted row has not occurred!03-27-2019 influenza, seasonal, injectable Patient Objection Britney Asia Other [employer] Other Payers Date Payer Category Payer [facility] [employer] [facility] [id number] 2023 Unknown [id number] 1970 Unknown [id number] 1968 Unknown [id number] 1968 Unknown [id number] 1968 Unknown [id number] 1968 Unknown [id number] 1968 Unknown [id number] 2.16.840.1.671785.3.579.2 .593 1970 Unknown [id number] 2.16.840.1.318960.3.579.2 .593 1970 Unknown [id number] 2.16.840.1.351815.3.579.2 .593 1970 Unknown [id number] 2.16.840.1.492218.3.579.2 .593 1970 Unknown [id number] 2.16.840.1.651892.3.579.2 .593 1968 Unknown [id number] 2.16.840.1.082243.3.579.2 .1259 1970 Unknown [id number] 2.16.840.1.868442.3.579.2 .1258 1970 Unknown [id number] 2.16.840.1.552386.3.579.2 .1258 1970 Unknown [id number] 2.16.840.1.657937.3.579.2 .1258 1968 Unknown [id number] 2.16.840.1.586428.3.579.2 .1258 1970 Unknown [id number] 2.16.840.1.636786.3.579.2 .1258 1968 Unknown [id number] 2.16.840.1.436176.3.579.2 .1258 1968 Unknown [id number] 2.16.840.1.087255.3.579.2 .1258 1968 Unknown [id number] 2.16.840.1.902040.3.579.2 .1258 1968 Unknown [id number] 2.16.840.1.169249.3.579.2 .1258 1968 Unknown [id number] 2.16.840.1.991095.3.579.2 .1258 1968 Unknown [id number] 2.16.840.1.133296.3.579.2 .1258 1968 Unknown [id number] 2.16.840.1.470632.3.579.2 .1258 1968 Unknown [id number] 2.16.840.1.157478.3.579.2 .1258 1968 Unknown [id number] 2.16.840.1.331432.3.579.2 .1258 1968 Unknown [id number] 2.16.840.1.626668.3.579.2 .1258 1968 Unknown [id number] 2.16.840.1.070783.3.579.2 .1258 1968 Unknown [id number] 2.16.840.1.148818.3.579.2 .9 1968 Unknown [id number] 2.16.840.1.868260.3.579.2 .1258 1968 Unknown [id number] 2.16.840.1.912395.3.579.2 .1258 1968 Unknown [id number] 2.16.840.1.090274.3.579.2 .1258 1968 Unknown [id number] 2.16.840.1.095496.3.579.2 .1258 1968 Unknown [id number] 2.16.840.1.240491.3.579.2 .1258 1968 Unknown [id number] 2.16.840.1.635003.3.579.2 .1258 1968 Unknown [id number] 2.16.840.1.644324.3.579.2 .1258 1968 Unknown [id number] 2.16.840.1.888067.3.579.2 .9 1959 Unknown [id number] 1959 Unknown [id number] 1959 Unknown [id number] 1959 Unknown Self-pay Self Pay [id number] Unknown [id number] Social History Date Type Detail Facility Tobacco smoking stat us [facility] Unknown if ever smoked [facility] Start: 1970 Sex Assigned At Female F [facility] Start: 04-02-2023 End: 10-05-2023 Sex Assigned At [facility] Other Start: 08-09-2019 End: 04-02-2023 Tobacco smoking status IDIS Never smoked tobacco (finding) [facility] Start: 04-02-2023 Tobacco use and exposure Smokeless tobacco non-user [facility] Start: 06-07-2024 End: 12-21-2024 Alcoholic beverage intake Current drinker of alcohol (finding) [facility] Start: 04-02-2023 End: 10-05-2023 History of Social function [facility] How often to you hav e a drink containing alcohol? Monthly or less [facility] How many standard drinks containing alcohol do you have on a typical day? 1 or 2 [facility] How often do you hav e 6 or more drinks on 1 occasion? Never [facility] Minutes of Exercise per Session Not on file [facility] Start: 05-06-2023 Education 13 [facility] Start: 05-06-2023 Alcohol Comment caffeine: occa sional coke, once in a while, 1 a day [facility] Start: 05-01-2023 Gender identity Identifies as female gender (finding) [facility] Start: 12-06-2024 End: 12-07-2024 Sex Female (finding) [facility] Medical Equipment Procedure Code Equipment Code Equipment Origin al Text Equipment Identifier Dates EGD, with Sheldon pH monitoring device placement [id number] FDA Start: 08-09-2019 Goals Date Patient Goal Desired Activity /State Functional Status Date Assessment Result Facility 01-21-2024 Functional status Patient at Baseline [facility] Work Phone: Mental Status Date Assessment Result Facility 01-21-2024 Cognitive function Cognitive Sta tus Patient at Baseline [facility] Work Phone: Clinical Notes 12-11-2021 to 12-21-2024 Roverto Carrizales APRN-JUKEBOX CHECKER - 12/21/2024 2:45 PM Lou Carrizales APRN-JUKEBOX CHECKER - 12/13/2024 8:30 AM EST Note Date & Type Note Facility 12-21-2024 History of Presen t illness Narrative Images from the original note were not included. Yarelis Swenson is a 54 y.o. female presents for Medication Management. HPI: Patient is here for medication follow up. Patient has improved since last appt. 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 Mood is reported as not depressed. Anxiety is comes when not busy doing things. Feels like not busy enough. Enjoys grandchild. Sleep interrupted with restless leg. On neurontin. Medication compliant. Has developed mouth movements after being on abilify. Abilify was removed. Denies abuse of substances. Medical problems since last visit. Restless leg, no heart problems, neuropathy, Chronic aches and pains. Hx of TIA, increased cholesterol Psychosocial stressors include Hx of being on prozac and paxil SUBJECTIVE: PAST MEDICAL HISTORY: Past Medical History: Diagnosis Date Arthritis SHELDON study 07/2019 hospitalized Breast mass, right 2012- cat scratch fever Burning mouth syndrome COVID 03/2021 hospitalized Depression (CMS/HCC) Epistaxis Family history of cancer GERD (gastroesophageal reflux disease) H/O Achilles tendon repair Hx of colonic polyps Hyperlipidemia (CMS/HCC) Hypertension (CMS/HCC) Migraines (CMS/HCC) TIFFANIE on CPAP Restless leg syndrome TIA (transient ischemic attack) 11/2017 Tumor, foot ALLERGIES: Allergies Allergen Reactions Acetaminophen GI intolerance Amoxicillin Hives Bupropion Other Reaction(s): caused made me feel weird drowsiness, lack of motivation Oxycodone GI intolerance SURGICAL HISTORY: Past Surgical History: Procedure Laterality Date ANKLE SURGERY Left 2022 x3 COLONOSCOPY 05/31/2018 EGD 09/21/2022 EXCISION cat scratch fever;Disease:Right Breast mass EXCISION Disease:tumor foot MR ANGIOGRAM HEAD WO IV CONTRAST 11/02/2022 MR ANGIOGRAM HEAD WO IV CONTRAST [facility] MR ANGIOGRAM HEAD WO IV CONTRAST 02/01/2018 MR ANGIOGRAM HEAD WO IV CONTRAST 02/01/2018 OTHER SURGICAL HISTORY laparoscopy OTHER SURGICAL HISTORY 08/2022 yariel lizama ROTATOR CUFF REPAIR Right 2017 ROTATOR CUFF REPAIR Left 08/07/2020 and distal clavicle resection, Dr. Anderson TENDON REPAIR Left 11/2022 achilles TUBAL LIGATION FAMILY HISTORY: Family History Problem Relation Name Age of Onset Heart disease Father Stroke Father Alzheimer's disease Father Dementia Father No Known Problems Brother No Known Problems Daughter Breast cancer Mother's Sister No Known Problems Son Colon cancer Neg Hx Ovarian cancer Neg Hx SOCIAL HISTORY: Social History Tobacco Use Smoking status: Never Smokeless tobacco: Never Vaping Use Vaping status: Never Used Substance Use Topics Alcohol use: Yes Comment: caffeine: occasional coke, once in a while, 1 a day Drug use: Never Depression: Not at risk (12/13/2024) PHQ-2 PHQ-2 Score: 0 REVIEW OF SYMPTOMS - MENTAL STATUS EXAM Appearance Appearance: Casual dress, normal grooming and hygiene Attitude Attitude: Cooperative, conversant, engaged, and with good eye contact. Behavior Cooperative, conversant, engaged, and with good eye contact. Speech Normal, clear, regular rate, rhythm and volume Affect full affect appropriate with mood Mood Anxious Thought Process Organized and Clear Thought Content No Suicidal Ideation and No Homicidal ideation Perception No perceptual abnormalities noted Orientation Appropriate to age, Person, and Place Memory/Concentration Short term intact and care home intact Insight/Judgement Good OBJECTIVE: Visit Vitals OB Status Postmenopausal Smoking Status Never No results found for: TSH Lab Results Component Value Date GLU 97 05/26/2024 CALCIUM 9.7 05/26/2024 NA 141 05/26/2024 K 4.2 05/26/2024 CO2 29 05/26/2024 CL 103 05/26/2024 BUN 13 05/26/2024 CREATININE 0.83 05/26/2024 Lab Results Component Value Date WBC 5.9 05/26/2024 HGB 13.4 05/26/2024 HCT 41.3 05/26/2024 MCV 91.0 05/26/2024 PLT 337 05/26/2024 Lab Results Component Value Date CHOL 204 (H) 05/26/2024 CHOL 287 (H) 11/24/2023 Lab Results Component Value Date HDL 57 05/26/2024 HDL 51 11/24/2023 Lab Results Component Value Date LDLCALC 111 (H) 05/26/2024 LDLCALC 190 (H) 11/24/2023 Lab Results Component Value Date TRIG 252 (H) 05/26/2024 TRIG 255 (H) 11/24/2023 TRIG 217 (H) 07/24/2020 ASSESSMENT AND PLAN: Assessment/Plan Bipolar affective disorder, currently depressed, moderate (CMS/HCC) Generalized anxiety disorder (CMS/HCC) 54 year old with Bipolar disorder and CLAUDY was stable on abilify and zoloft. We changed to zoloft and is much improved. Patient developed TD- abilify lowered and no improvement. Mainly mouth and tongue movements. Patient having side effects of tongue movements and legs feel like has to keep moving. on current medications. Psych Medication List vistaril 50mg 1 q8 hours prn anxiety-has not needed zoloft 100 mg in am If no improvement in movements -consider starting Ingrezza. No improvement in tongue movements . Reviewed patient hx of and will obtain a EKG before starting Ingrezza. Patient not to start until EkG complete and read. 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 Patient was seen Face to Face, Reviewed chart documents and documentation, Visit time : 45min 3 weeks documented in this encounter [facility] 12-13-2024 History of Presen t illness Narrative Images from the original note were not included. Yarelis Swenson is a 54 y.o. female presents for Medication Management. HPI: Patient is here for medication follow up. Patient mood is same since last appt. Was fired from her job as they were no longer able to accommodate her disability. Mood is reported as not depressed. Anxiety is 6 (10worst). Had atarax three times last week. Sleeping 8 hours. Medication compliant. Reported side effects-tongue movements. Aims completed. Said started a few months ago. Denies abuse of substances. Medical problems since last visit. Has to have a right knee replacement. Injured at work left ankle -has been out of work for a year. Psychosocial stressors include financial. SUBJECTIVE: PAST MEDICAL HISTORY: Past Medical History: Diagnosis Date Arthritis SHELDON study 07/2019 hospitalized Breast mass, right 2012- cat scratch fever Burning mouth syndrome COVID 03/2021 hospitalized Depression (CMS/HCC) Epistaxis Family history of cancer GERD (gastroesophageal reflux disease) H/O Achilles tendon repair Hx of colonic polyps Hyperlipidemia (CMS/HCC) Hypertension (CMS/HCC) Migraines (CMS/HCC) TIFFANIE on CPAP Restless leg syndrome TIA (transient ischemic attack) 11/2017 Tumor, foot ALLERGIES: Allergies Allergen Reactions Acetaminophen GI intolerance Amoxicillin Hives Bupropion Other Reaction(s): caused made me feel weird drowsiness, lack of motivation Oxycodone GI intolerance SURGICAL HISTORY: Past Surgical History: Procedure Laterality Date ANKLE SURGERY Left 2022 x3 COLONOSCOPY 05/31/2018 EGD 09/21/2022 EXCISION cat scratch fever;Disease:Right Breast mass EXCISION Disease:tumor foot MR ANGIOGRAM HEAD WO IV CONTRAST 11/02/2022 MR ANGIOGRAM HEAD WO IV CONTRAST [facility] MR ANGIOGRAM HEAD WO IV CONTRAST 02/01/2018 MR ANGIOGRAM HEAD WO IV CONTRAST 02/01/2018 OTHER SURGICAL HISTORY laparoscopy OTHER SURGICAL HISTORY 08/2022 yariel lizama ROTATOR CUFF REPAIR Right 2017 ROTATOR CUFF REPAIR Left 08/07/2020 and distal clavicle resection, Dr. Anderson TENDON REPAIR Left 11/2022 achilles TUBAL LIGATION FAMILY HISTORY: Family History Problem Relation Name Age of Onset Heart disease Father Stroke Father Alzheimer's disease Father Dementia Father No Known Problems Brother No Known Problems Daughter Breast cancer Mother's Sister No Known Problems Son Colon cancer Neg Hx Ovarian cancer Neg Hx SOCIAL HISTORY: Social History Tobacco Use Smoking status: Never Smokeless tobacco: Never Vaping Use Vaping status: Never Used Substance Use Topics Alcohol use: Yes Comment: caffeine: occasional coke, once in a while, 1 a day Drug use: Never Depression: Not at risk (09/12/2024) PHQ-2 PHQ-2 Score: 0 REVIEW OF SYMPTOMS - MENTAL STATUS EXAM Appearance Appearance: Casual dress, normal grooming and hygiene Attitude Attitude: Cooperative, conversant, engaged, and with good eye contact. Behavior Cooperative, conversant, engaged, and with good eye contact. Speech Normal, clear, regular rate, rhythm and volume Affect full affect appropriate with mood Mood Anxious Thought Process Organized and Clear Thought Content No Suicidal Ideation and No Homicidal ideation Perception No perceptual abnormalities noted Orientation Appropriate to age, Person, Place, and Time Memory/Concentration Short term intact and care home intact Insight/Judgement Good OBJECTIVE: Visit Vitals OB Status Postmenopausal Smoking Status Never No results found for: TSH Lab Results Component Value Date GLU 97 05/26/2024 CALCIUM 9.7 05/26/2024 NA 141 05/26/2024 K 4.2 05/26/2024 CO2 29 05/26/2024 CL 103 05/26/2024 BUN 13 05/26/2024 CREATININE 0.83 05/26/2024 Lab Results Component Value Date WBC 5.9 05/26/2024 HGB 13.4 05/26/2024 HCT 41.3 05/26/2024 MCV 91.0 05/26/2024 PLT 337 05/26/2024 Lab Results Component Value Date CHOL 204 (H) 05/26/2024 CHOL 287 (H) 11/24/2023 Lab Results Component Value Date HDL 57 05/26/2024 HDL 51 11/24/2023 Lab Results Component Value Date LDLCALC 111 (H) 05/26/2024 LDLCALC 190 (H) 11/24/2023 Lab Results Component Value Date TRIG 252 (H) 05/26/2024 TRIG 255 (H) 11/24/2023 TRIG 217 (H) 07/24/2020 ASSESSMENT AND PLAN: Assessment/Plan Bipolar affective disorder, currently depressed, moderate (CMS/HCC) Generalized anxiety disorder (CMS/HCC) 54 year old with Bipolar disorder and CLAUDY currently stable on ABilify and venlafaxine with depression, but anxiety persists. We changed to zoloft and is much improved. Patient having side effects of tongue movements and legs feel like has to keep moving. on current medications. Psych Medication List vistaril 50mg 1 q8 hours prn anxiety-has not needed zoloft 100 mg in am Abilify Tablet 5mg daily -stabilize mood. Discontinue as follows /half tab for 5 days then stop. -due to tongue movements. If no improvement in movements -consider starting Ingrezza. Patient was seen Face to Face, Reviewed chart documents and documentation, Visit time : 30min F/U 2 weeks assess movements documented in this encounter [facility] 12-06-2024 Evaluation note Diagnosis Onset Date Resolution Bilateral primary osteoarthritis of knee acute December 062024 1:36pm [facility] Work Phone: 1(648) 639-894912-20-2024 History of Present illness Narrative* Rhiannon Zarate NP - 11/17/2024 8:15 AM EST Images from the original note were not included. Yarelis Swenson is a 54 y.o. female presents with chief complaint of needing exam to apply for disability (Pt has not started paperwork for this. Hx of Stroke, anxiety and pain. She does follow Geovany Carrizales CAREER TECHNICAL SUPERVISOR for psych) HPI: History of Present Illness The patient presents for evaluation of disability paperwork. She is seeking assistance in initiating the process for disability due to her medical history, which includes a stroke, anxiety, and chronic pain. She has been unemployed following her termination from [employer] due to her inability to meet the physical demands of her job, particularly after undergoing four surgeries on her ankle. She is currently awaiting the start of vocational rehabilitation to help her find employment that accommodates her limitations. She has been managing her pain with daily doses of ibuprofen and Tylenol but has recently increasedher intake to four naproxen tablets due to severe knee swelling, which has significantly limited her mobility. MEDICATIONS Ibuprofen, Tylenol, naproxen. I have reviewed and reconciled the history and medication list with the patient today. HISTORIES: PAST MEDICAL HISTORY: Past Medical History: Diagnosis Date Arthritis SHELDON study 07/2019 hospitalized Breast mass, right 2012- cat scratch fever Burning mouth syndrome COVID 03/2021 hospitalized Depression (CMS/HCC) Epistaxis Family history of cancer GERD (gastroesophageal reflux disease) H/O Achilles tendon repair Hx of colonic polyps Hyperlipidemia (CMS/HCC) Hypertension (CMS/HCC) Migraines (CMS/HCC) TIFFANIE on CPAP Restless leg syndrome TIA (transient ischemic attack) 11/2017 Tumor, foot SURGICAL HISTORY: Past Surgical History: Procedure Laterality Date ANKLE SURGERY Left 2022 x3 COLONOSCOPY 05/31/2018 EGD 09/21/2022 EXCISION cat scratch fever;Disease:Right Breast mass EXCISION Disease:tumor foot MR ANGIOGRAM HEAD WO IV CONTRAST 11/02/2022 MR ANGIOGRAM HEAD WO IV CONTRAST [facility] ANGIOGRAM HEAD WO IV CONTRAST 02/01/2018 MR ANGIOGRAM HEAD WO IV CONTRAST 02/01/2018 OTHER SURGICAL HISTORY laparoscopy OTHER SURGICAL HISTORY 08/2022 yariel lizama ROTATOR CUFF REPAIR Right 2017 ROTATOR CUFF REPAIR Left 08/07/2020 and distal clavicle resection, Dr. Anderson TENDON REPAIR Left 11/2022 achilles TUBAL LIGATION SOCIAL HISTORY: Social History Tobacco Use Smoking status: Never Smokeless tobacco: Never Vaping Use Vaping status: Never Used Substance Use Topics Alcohol use: Yes Comment: caffeine: occasional coke, once in a while, 1 a day Drug use: Never Depression: Not at risk (09/12/2024) PHQ-2 PHQ-2 Score: 0 FAMILY HISTORY: Family History Problem Relation Name Age of Onset Heart disease Father Stroke Father Alzheimer's disease Father Dementia Father No Known Problems Brother No Known Problems Daughter Breast cancer Mother's Sister No Known Problems Son Colon cancer Neg Hx Ovarian cancer Neg Hx MEDICATIONS: Current Outpatient Medications Medication Instructions Acetaminophen (TYLENOL 8 HOUR PO) Tylenol ARIPiprazole (ABILIFY) 5 mg, Oral, Daily Aspirin Low Dose 81 mg, Daily atorvastatin (LIPITOR) 80 mg, Daily clopidogrel (PLAVIX) 75 mg, Daily ezetimibe (ZETIA) 10 mg, Oral, Daily famotidine (PEPCID) 20 mg, Every 24 hours fluocinonide (Lidex) 0.05 % external solution Apply to affected areas on the scalp, up to twice a day when flared, 30 day supply gabapentin (Neurontin) 300 MG capsule Take one capsules in the morning, one capsule in the afternoon and two capsules at bedtime. hydroCHLOROthiazide (HYDRODiuril) 25 MG tablet TAKE 1 TABLET BY MOUTH DAILY IN THE MORNING hydrOXYzine HCl (ATARAX) 50 mg, Oral, 2 times daily PRN ibuprofen 600 MG tablet Every 8 hours PRN losartan (Cozaar) 25 MG tablet TAKE 1 TABLET BY MOUTH ONCE DAILY nystatin-triamcinolone (Mycolog II) cream Topical, 2 times daily, Use for 2 weeks max phentermine (ADIPEX-P) 37.5 mg, Oral, Daily before breakfast sertraline (ZOLOFT) 100 mg, Oral, Daily terbinafine (LamISIL AT ATHLETES FOOT) 1 % cream Apply to groin topically once a day/30 days ALLERGIES: Allergies Allergen Reactions Acetaminophen GI intolerance Amoxicillin Hives Bupropion Other Reaction(s): caused made me feel weird drowsiness, lack of motivation Oxycodone GI intolerance PHYSICAL EXAM: Visit Vitals BP 122/78 (BP Location: Left arm, Patient Position: Sitting) Pulse 81 Ht 5' 4 Wt 207 lb SpO2 97% BMI 35.53 kg/m OB Status Postmenopausal Smoking Status Never BSA 2.06 m BP Readings from Last 3 Encounters: 11/17/24 122/78 09/15/24 124/80 09/12/24 124/82 Wt Readings from Last 3 Encounters: 11/17/24 207 lb 09/12/24 207 lb 06/07/24 180 lb Physical Exam HENT: Right Ear: Tympanic membrane and external ear normal. Left Ear: Tympanic membrane and external ear normal. Mouth/Throat: Mouth: Mucous membranes are moist. Cardiovascular: Rate and Rhythm: Normal rate and regular rhythm. Heart sounds: No murmur heard. No friction rub. No gallop. Pulmonary: Effort: Pulmonary effort is normal. Breath sounds: Normal breath sounds. Musculoskeletal: Right lower leg: No edema. Left lower leg: No edema. Skin: General: Skin is warm and dry. Neurological: Mental Status: She is alert and oriented to person, place, and time. Psychiatric: Thought Content: Thought content normal. Results ASSESSMENT AND PLAN: Assessment & Plan 1. History of multiple strokes She is seeking disability due to her history of stroke, anxiety, and chronic pain. She has been advised to initiate the process by contacting an assistant city attorney or applying online, gathering her medical records, and completing the necessary application forms. A follow-up appointment with Dr. Jarrett is scheduled for November or December 2024 to further discuss her needs and progress in the disability application process. 2. Generalized anxiety disorder (CMS/HCC) Stable. Continue following with Psych. 3. Primary osteoarthritis involving multiple joints She is using OTC meds for relief. 4. Prediabetes (Primary) Continue to minimize added sugars, carbohydrates and control overall calories. Encouraged regular exercise will help to increase your sensitivity to insulin and can help with weight loss or maintenance to prevent progression to diabetes. 5. Essential hypertension (CMS/HCC) Doing well. Blood pressures have been good. Continue lifestyle modifications. Continue current medication. Call if any problems or if home blood pressures rising. - Basic metabolic panel; Future - Basic metabolic panel 7. Chronic pain of both knees She reports taking ibuprofen and Tylenol for pain management. Recently, she has been taking four naproxen daily due to severe knee swelling and pain, which limits her mobility. Will refer to Ortho per her request and let them handle ordering x-rays. Pt agreeable and aware she will be contacted to schedule. - Ambulatory referral to Orthopaedic Surgery; [id number] History of Present illness Narrative* Jacquie Yip NP - 09/15/2024 10:20 AM EDT Images from the original note were not included. Subjective Patient ID: Yarelis Swenson (: 1970) is a 54 y.o. female who presents for discuss medications. History of Present Illness The patient presents for evaluation of multiple medical concerns. She is experiencing intermittent mouth issues, which she initially thought were resolving but have since recurred. She has been under the care of Dr. Baker for burning mouth syndrome and has been using a compound medication known as Magic Mouthwash, which was expected to take several months to show improvement. She is seeking refills for this medication as her insurance does not cover the RX at [facility]. She is currently on gabapentin 300 mg, taking three doses daily, totaling 900 mg per day which she has been increasing herself. Despite this, there has been no noticeable improvement in her symptoms,specifically the involuntary movement in her legs, which is more pronounced at night. She is considering increasing the dose. She has experienced weight fluctuations, dropping from 210 to 180 pounds, but has since regained the weight. She is contemplating the use of Adipex for weight management, even though she is already experiencing dry mouth symptoms. Current Outpatient Medications Medication Instructions Acetaminophen (TYLENOL 8 HOUR PO) Tylenol ARIPiprazole (ABILIFY) 5 mg, Oral, Daily Aspirin Low Dose 81 mg, Daily atorvastatin (LIPITOR) 80 mg, Daily clopidogrel (PLAVIX) 75 mg, Daily diphenhydrAMINE 12.5 MG/5ML elixir 50 mg, aluminum-magnesium hydroxide- simethicone 400-400-40 MG/5ML suspension 20 mL, lidocaine 2 % solution 20 mL 5 mL, Swish & Spit, Every 6 hours PRN ezetimibe (ZETIA) 10 mg, Oral, Daily famotidine (PEPCID) 20 mg, Every 24 hours fluocinonide (Lidex) 0.05 % external solution Apply to affected areas on the scalp, up to twice a day when flared, 30 day supply gabapentin (Neurontin) 300 MG capsule Take one capsules in the morning, one capsule in the afternoon and two capsules at bedtime. hydroCHLOROthiazide (HYDRODiuril) 25 MG tablet TAKE 1 TABLET BY MOUTH DAILY IN THE MORNING hydrOXYzine HCl (ATARAX) 50 mg, Oral, 2 times daily PRN ibuprofen 600 MG tablet Every 8 hours PRN lidocaine (Xylocaine) 2 % solution As needed losartan (Cozaar) 25 MG tablet TAKE 1 TABLET BY MOUTH ONCE DAILY nystatin-triamcinolone (Mycolog II) cream Topical, 2 times daily, Use for 2 weeks max sertraline (ZOLOFT) 100 mg, Oral, Daily terbinafine (LamISIL AT ATHLETES FOOT) 1 % cream Apply to groin topically once a day/30 days Allergies Allergen Reactions Acetaminophen GI intolerance Amoxicillin Hives Bupropion Other Reaction(s): caused made me feel weird drowsiness, lack of motivation Oxycodone GI intolerance Patient Active Problem List Diagnosis Bipolar affective disorder, currently depressed, moderate (CMS/HCC) Generalized anxiety disorder (CMS/HCC) Cognitive impairment Esophageal erosions Cerebral atrophy (CMS/HCC) B12 deficiency Adrenal disease (CMS/HCC) Fatty liver Functional visual loss (CMS/HCC) Moderate episode of recurrent major depressive disorder (CMS/HCC) Obstructive sleep apnea syndrome Peripheral neuropathy Restless legs GERD (gastroesophageal reflux disease) Prediabetes Essential hypertension (CMS/HCC) Pharyngoesophageal dysphagia Porokeratosis Tear of left rotator cuff Pure hypercholesterolemia (CMS/HCC) Primary osteoarthritis involving multiple joints History of multiple strokes History of migraine headaches Mouth sores Mouth pain Review of Systems Constitutional: Negative for chills, fatigue and fever. HENT: Dry mouth with sores Neurological: Negative for dizziness and headaches. Objective Vital signs: BP 124/80 Pulse 69 Temp 97.2 F SpO2 97% Physical Exam Constitutional: Appearance: Normal appearance. HENT: Head: Normocephalic. Mouth/Throat: Mouth: Mucous membranes are moist. Comments: Swollen taste buds at the tip of the tongue, no other oral sores. Patient does have pain with speaking. Noticeable dry mouth. Eyes: Pupils: Pupils are equal, round, and reactive to light. Neurological: Mental Status: She is alert. Assessment/Plan Assessment & Plan 1. Burning mouth syndrome. A prescription for Magic Mouthwash with three refills will be provided and sent to [facility]. It isnoted that the treatment may take months to show improvement. Follow with Dr. Baker as needed. 2. Restless leg syndrome. The gabapentin dosage will be increased to 1200 mg daily, divided into 300 mg in the morning, 300 mg in the afternoon, and 600 mg at night. A 30-day supply will be provided and sent to [facility]. The patient is advised to give the new higher dose a week to take effect and to keep the provider updated on the progress. 3. Weight management. She has been advised to consult with her anxiety specialist, Roverto, regarding the potential use of Adipex, given its side effects of dry mouth and potential to exacerbate anxiety symptoms. Once shegets approval from Roverto, she should inform the provider to proceed with the weight management plan. Problem List Items Addressed This Visit Peripheral neuropathy Relevant Medications gabapentin (Neurontin) 300 MG capsule Restless legs Relevant Medications gabapentin (Neurontin) 300 MG capsule Prediabetes Other Visit Diagnoses Burning mouth syndrome - Primary Relevant Medications diphenhydrAMINE 12.5 MG/5ML elixir 50 mg, aluminum-magnesium hydroxide- simethicone 400-400-40 MG/5ML suspension 20 mL, lidocaine 2 % solution 20 mL Tongue pain Relevant Medications diphenhydrAMINE 12.5 MG/5ML elixir 50 mg, aluminum-magnesium hydroxide- simethicone 400-400-40 MG/5ML suspension 20 mL, lidocaine 2 % solution 20 mL BMI 35.0-35.9,adult Health Maintenance Topic Date Due Influenza Vaccine (1) 07/30/2024 Mammogram 10/26/2024 Cervical Cancer Screening 10/05/2028 Colorectal Cancer Screening 02/24/2034 Immunization History Administered Date(s) Administered Influenza, injectable, MDCK, preservative free, quadrivalent 08/25/2022, 11/30/2023 Influenza, injectable, quadrivalent 09/18/2019, 09/16/2020 Influenza, injectable, quadrivalent, preservative free 12/09/2017 Moderna SARS-CoV-2 Vaccination 04/05/2021, 04/25/2021, 05/23/2021, 11/25/2021, 12/20/2021 -Patient's chronic conditions have been reviewed in preparation for this appointment. Protocols reviewed and updated. A collaborative plan of care has been created for pt regarding specific health concerns. Any barriers to care have been identified and addressed. Any part of this document that has been added/copied from other documents has been reviewed for accuracy and updated as appropriate at the time of the patient encounter. -Follow up for Next scheduled follow-up. Jacquie Yip NP documented in this encounterSaint Luke's [id number] History of Present illness Narrative* Roverto Carrizales, INFECTION CONTROL COORDINATOR-JUKEBOX CHECKER - 09/12/2024 9:00 AM EDT Images from the original note were not included. Yarelis Swenson is a 54 y.o. female presents for Medication Management. HPI: Patient is here for medication follow up. Patient has been doing well since last appt. Mood is reported as not depressed. Anxiety is on occasion about two times a week. Sleeping well. Sometimes has restless leg. Gabapentin Medication compliant. No reported side effects. Denies abuse of substances. Medical problems since last visit. Chronic pain. Psychosocial stressors include unknown about work. SUBJECTIVE: PAST MEDICAL HISTORY: Past Medical History: Diagnosis Date Arthritis SHELDON study 07/2019 hospitalized Breast mass, right 2012- cat scratch fever Burning mouth syndrome COVID 03/2021 hospitalized Depression (CMS/HCC) Epistaxis Family history of cancer GERD (gastroesophageal reflux disease) H/O Achilles tendon repair Hx of colonic polyps Hyperlipidemia (CMS/HCC) Hypertension (CMS/HCC) Migraines (CMS/HCC) TIFFANIE on CPAP Restless leg syndrome TIA (transient ischemic attack) 11/2017 Tumor, foot ALLERGIES: Allergies Allergen Reactions Acetaminophen GI intolerance Amoxicillin Hives Bupropion Other Reaction(s): caused made me feel weird drowsiness, lack of motivation Oxycodone GI intolerance SURGICAL HISTORY: Past Surgical History: Procedure Laterality Date ANKLE SURGERY Left 2022 x3 COLONOSCOPY 05/31/2018 EGD 09/21/2022 EXCISION cat scratch fever;Disease:Right Breast mass EXCISION Disease:tumor foot MR ANGIOGRAM HEAD WO IV CONTRAST 11/02/2022 MR ANGIOGRAM HEAD WO IV CONTRAST [facility] MR ANGIOGRAM HEAD WO IV CONTRAST 02/01/2018 MR ANGIOGRAM HEAD WO IV CONTRAST 02/01/2018 OTHER SURGICAL HISTORY laparoscopy OTHER SURGICAL HISTORY 08/2022 yariel lizama ROTATOR CUFF REPAIR Right 2017 ROTATOR CUFF REPAIR Left 08/07/2020 and distal clavicle resection, Dr. Anderson TENDON REPAIR Left 11/2022 achilles TUBAL LIGATION FAMILY HISTORY: Family History Problem Relation Name Age of Onset Heart disease Father Stroke Father Alzheimer's disease Father Dementia Father No Known Problems Brother No Known Problems Daughter Breast cancer Mother's Sister No Known Problems Son Colon cancer Neg Hx Ovarian cancer Neg Hx SOCIAL HISTORY: Social History Tobacco Use Smoking status: Never Smokeless tobacco: Never Vaping Use Vaping status: Never Used Substance Use Topics Alcohol use: Yes Comment: caffeine: occasional coke, once in a while, 1 a day Drug use: Never Depression: Not at risk (09/12/2024) PHQ-2 PHQ-2 Score: 0 REVIEW OF SYMPTOMS - MENTAL STATUS EXAM Appearance Appearance: Casual dress, normal grooming and hygiene Attitude Attitude: Cooperative, conversant, engaged, and with good eye contact. Behavior Cooperative, conversant, engaged, and with good eye contact. 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 Insight/Judgement Good OBJECTIVE: Visit Vitals BP 124/82 (BP Location: Left arm) Pulse 98 Wt 207 lb BMI 35.53 kg/m OB Status Postmenopausal Smoking Status Never BSA 2.06 m No results found for: TSH Lab Results Component Value Date GLU 97 05/26/2024 CALCIUM 9.7 05/26/2024 NA 141 05/26/2024 K 4.2 05/26/2024 CO2 29 05/26/2024 CL 103 05/26/2024 BUN 13 05/26/2024 CREATININE 0.83 05/26/2024 Lab Results Component Value Date WBC 5.9 05/26/2024 HGB 13.4 05/26/2024 HCT 41.3 05/26/2024 MCV 91.0 05/26/2024 PLT 337 05/26/2024 Lab Results Component Value Date CHOL 204 (H) 05/26/2024 CHOL 287 (H) 11/24/2023 Lab Results Component Value Date HDL 57 05/26/2024 HDL 51 11/24/2023 Lab Results Component Value Date LDLCALC 111 (H) 05/26/2024 LDLCALC 190 (H) 11/24/2023 Lab Results Component Value Date TRIG 252 (H) 05/26/2024 TRIG 255 (H) 11/24/2023 TRIG 217 (H) 07/24/2020 ASSESSMENT AND PLAN: Assessment/Plan Assess/Plan SmartLinks: Diagnoses and all orders for this visit: Bipolar affective disorder, currently depressed, moderate (CMS/HCC) Generalized anxiety disorder (CMS/HCC) 54 year old with Bipolar disorder and CLAUDY currently stable on ABilify and venlafaxine with depression, but anxiety persists. We changed to zoloft and is much improved. Patient has been stable on current medications. Psych Medication List vistaril 50mg 1 q8 hours prn anxiety-has not needed zoloft 100 mg in am Abilify Tablet 5mg daily -stabilize mood. Patient was seen Face to Face, Reviewed chart documents and documentation, Visit time : 25min Follow up : 3months documented in this encounterSaint Luke's [id number] Procedure [facility]02-24-2024 Consult note Author Elkin Mcmahon [facility] January 22, 2024 12:23pm Note Date/Time January 22, 2024 12:18pm [facility] [address] [place] [address] Neurology Consult Note Signed Patient: Yarelis Swenson MR#: [id number] : 1970 Acct:[id number] Age/Sex: 53 / F Adm Date: 4 Loc: Room: [address] [place] [address] Type: ADM IN Attending Dr: Michael Wells MD Copies to: MD Julio C Vides MD Steven Benedict, MD~ HPI Consult Date: 01/22/24 Orthopedic Cast Specialist: Elkin Mcmahon MD Reason for consult: Confusion [...] aspirin. The patient was treated at the [facility] for these symptoms. This record isnot available [...] negative unless noted below or in HPI [facility] Medical History Neuroma of right leg Rotator [...] Danielito Haro M.D.01/21/2024 12:19 PM Dictation Location: [place] [address] 01/21/24 11:34 IMPRESSION: There are [...] Alicia Tian M.D.01/21/2024 11:56 AM Dictation Location: [place] [address] Head CTA 01/21/24 11:38 IMPRESSION: There is mild irregular narrowing of the P1 and P2 segments of the posterior cerebral arteries bilaterally which may be atherosclerotic or less likely secondary to vasculitis. No evidence of focal stenosis, aneurysmal dilatation, dissection or occlusion, otherwise. Impression dictated by: Alicia Tian M.D.01/21/2024 12:04 PM Dictation Location: [place] [address] Brain MRI 01/21/24 12:49 IMPRESSION: No acute intracranial process. Findings consistent with chronic small vessel ischemic changes. Impression dictated by: Danielito Haro M.D.01/21/2024 5:57 PM Dictation Location: [place] [address] Assessment/Plan (1) Acute CVA (cerebrovascular accident): Assessment/Problem [...] course. Documented By: Elkin Mcmahon MD 01/22/24 1217 Signed By: <Electronically signed by MD Elkin Mcmahon> 01/22/24 1223 [facility] Work Phone: 1(397) 147-389202-23-2024 History and physical note Author Michael Wells [facility] January 21, 2024 5:39pm Note Date/Time January 21, 2024 3:50pm [facility] [address] [place] [address] Hospitalist H&P Signed Patient: Yarelis Swenson MR#: [id number] : 1970 Acct:[id number] Age/Sex: 53 / F Adm Date: 4 Loc: Room: [address] [place] [address] Type: ADM IN Attending Dr: Michael Wells MD Copies to: MD Andrew Vides DO,RES Julio C Jarrett MD~ HPI DATE OF EXAMINATION: 01/21/24 CHIEF COMPLAINT: Patient droop, abnormal speech HISTORY OF PRESENT ILLNESS: Attending note: I saw the patient personally on the day of encounter. I reviewed the relevant history, and performed the jama elements of the physical examination. I reviewedthe relevant laboratory workup, radiological studies and the current treatment plan. I formulated the plan of care and confirmed it with the resident/student/CAREER TECHNICAL SUPERVISOR. Patient is a 53-year-old female who initially [...] nontender, nondistended Neuro: CN II-XII intact. Normal [id number] testing bilaterally. Normal sensation to the bilateral [...] for DVT prophylaxis Regular diet Full code [facility] Medical History Neuroma of right leg Rotator [...] % (Auto) 25.9 % (.) 01/21/24 11:39 [place] % (Auto) 5.8 % (.) 01/21/24 11:39 Eos % (Auto) 1.4 % (.) 01/21/24 11:39 Baso % (Auto) 0.6 % (.) 01/21/24 11:39 Nucleat RBC Rel Count 0.1 /100 WBC (0-0.5) 01/21/24 11:39 Neut # (Auto) 5.2 x10E3/uL (1.8-7.7) 01/21/24 11:39 Lymph # (Auto) 2.0 x10E3/uL (1.00-4.8) 01/21/24 11:39 [place] # (Auto) 0.5 x10E3/uL (0.0-0.8) 01/21/24 11:39 [...] pH 7.5 (5.0-9.0) 01/21/24 12:01 Ur Specific [place] 1.050 (1.001-1.030) H 01/21/24 12:01 Urine Protein [...] signed by Michael Wells MD> 01/21/24 1739 [facility] Work Phone: 1(594) 751-915308-24-2022 Evaluation note* Encounter Date Diagnosis Assessment Notes [...] She understands and agrees with the plan. [employer] Other 07-28-2022 Evaluation note* Encounter Date Diagnosis [...] risk of hypokalemia including cardiac arrhythmias and [employer] Other 06-11-2022 Evaluation note* Encounter Date Diagnosis [...] symptoms do not improve in 7 days. [employer] Other 01-13-2022 Evaluation note* Encounter Date Diagnosis [...] within normal limits. I prescribed oral ergocalciferol. [place] [employer] Other Evaluation noteNo assessment information available [facility] Work Phone: Evaluation noteNo InformationNortWayne [facility] Hospital [employer] Other Evaluation note* Diagnosis Onset Date Resolution Status Acute CVA (cerebrovascular accident) acute [facility] Work Phone: Evaluation note* Diagnosis Onset Date Resolution Status Acute CVA (cerebrovascular accident) resolved [facility] Work Phone: Evaluation note* Diagnosis Onset Date Resolution Status Acute glossitis noneactive [facility] Work Phone: Evaluation note* Diagnosis Bipolar affective disorder, currently depressed, moderate (CMS/HCC)- Primary Bipolar I disorder, most recent episode (or current) depressed, moderate Multiple lacunar infarcts (CMS/HCC) Cognitive impairment Unspecified persistent mental disorders due to conditions classified elsewhere Chest pain, unspecified type Gastroesophageal reflux disease, unspecified whether esophagitis present Hypertension, unspecified type (CMS/HCC) Bipolar affective disorder, currently depressed, moderate (CMS/HCC) Bipolar I disorder, most recent episode (or current) depressed, moderate Generalized anxiety disorder (CMS/HCC) Generalized anxiety disorder documented [facility] encounter [facility]* Diagnosis Bipolar affective disorder, currently depressed, moderate (CMS/HCC)- Primary Bipolar I disorder, most recent episode (or current) depressed, moderate Multiple lacunar infarcts (CMS/HCC) Cognitive impairment Unspecified persistent mental disorders due to conditions classified elsewhere Chest pain, unspecified type Gastroesophageal reflux disease, unspecified whether esophagitis present Hypertension, unspecified type (CMS/HCC) Burning mouth syndrome- Primary Glossodynia Tongue pain Glossodynia Restless legs Restless legs syndrome (RLS) Idiopathic peripheral neuropathy Unspecified hereditary and idiopathic peripheral neuropathy Prediabetes Other abnormal glucose BMI 35.0-35.9,adult documented in this encounter [facility] Healthcare[facility] note* Diagnosis Bipolar affective disorder, currently depressed, moderate (CMS/HCC)- Primary Bipolar I disorder, most recent episode (or current) depressed, moderate Multiple lacunar infarcts (CMS/HCC) Cognitive impairment Unspecified persistent mental disorders due to conditions classified elsewhere Chest pain, unspecified type Gastroesophageal reflux disease, unspecified whether esophagitis present Hypertension, unspecified type (CMS/HCC) Class 2 obesity due to excess calories without serious comorbidity with body mass index (BMI) of 35.0 to 35.9 in adult Restless legs Restless legs syndrome (RLS) Idiopathic peripheral neuropathy Unspecified hereditary and idiopathic peripheral neuropathy documented in this encounter [facility] HealthcareEvaluation note* Diagnosis Bipolar affective disorder, currently depressed, moderate (CMS/HCC)- Primary Bipolar I disorder, most recent episode (or current) depressed, moderate Multiple lacunar infarcts (CMS/HCC) Cognitive impairment Unspecified persistent mental disorders due to conditions classified elsewhere Chest pain, unspecified type Gastroesophageal reflux disease, unspecified whether esophagitis present Hypertension, unspecified type (CMS/HCC) Prediabetes- Primary Other abnormal glucose History of multiple strokes Generalized anxiety disorder (CMS/HCC) Generalized anxiety disorder Primary osteoarthritis involving multiple joints Essential hypertension (CMS/HCC) Unspecified essential hypertension Chronic pain of both knees documented in this encounter [facility] HealthcareEvaluation note* Diagnosis Onset Date Resolution Status Admit Date Bilateral primary osteoarthr itis of knee acute December 06 1:36pm [facility] Work Phone: Evaluation note* Diagnosis Bipolar affective disorder, currently depressed, moderate (CMS/HCC)- Primary Bipolar I disorder, most recent episode (or current) depressed, moderate Multiple lacunar infarcts (CMS/HCC) Cognitive impairment Unspecified persistent mental disorders due to conditions classified elsewhere Chest pain, unspecified type Gastroesophageal reflux disease, unspecified whether esophagitis present Hypertension, unspecified type (CMS/HCC) Bipolar affective disorder, currently depressed, moderate (CMS/HCC) Bipolar I disorder, most recent episode (or current) depressed, moderate documented [facility] encounter [facility]* Diagnosis Bipolar affective disorder, currently depressed, moderate (CMS/HCC)- Primary Bipolar I disorder, most recent episode (or current) depressed, moderate Multiple lacunar infarcts (CMS/HCC) Cognitive impairment Unspecified persistent mental disorders due to conditions classified elsewhere Chest pain, unspecified type Gastroesophageal reflux disease, unspecified whether esophagitis present Hypertension, unspecified type (CMS/HCC) Hx of high risk medication treatment documented in this encounter [facility] Author Ayaan Pulido [facility] February 25, 2024 12:31pm Note Date/Time February 25, 2024 12: 31pm [facility] [address] [place] [address] Gastroenterology H&P Signed Patient: Yarelis Swenson MR#: [id number] : 1970 Acct:[id number] Age/Sex: 54 / F Adm Date: 4 Loc: Room: Type: [facility] Attending Dr: Ayaan Pulido MD Copies [...] 02/25/24 1231 Signed By: <Electronically signed by Ayana Pulido MD> 02/25/24 1231 [facility] Work Phone: History general Narrative - Reported* [...] rotator cuff 07/2020 Hospitalization History see above [employer] Other Summary Purpose Family History No Family [...] Osteoarthritis Unknown grandparent Unknown Malignant neoplasm Unknown Relationship Condition Age at Onset Recorded Date/T quang father Malignant neoplasm of prostate Unknown Hypercholesterolemia Unknown Hypertension Unknown History of stroke Unknown mother Hypercholesterolemia Unknown Osteoarthritis Unknown grandparent Unknown Malignant [...] right knee, initial encounter (S89.91XA) Referral Organization [facility] [place] Referring Provider First Name Abel Referring Provider Last Name [place] Referring Provider Specialty Nurse Pract itioner Referred Organization [facility] Referred Address [address],[place], [place],[address] Referred Provider Specialty Sport Medici ne Referral [...] tongue pain Reason for Visit Acute glossitis Chief Complaint tongue pain L Achilles tendon tear Reason for Visit Acute glossitis Chief Complaint L foot stress fx Chief Complaint L foot stress fx return to work Chief Complaint Admit Date L foot stress fx September 11, 2024 7 :45am return to work September 29, 2024 9 :51am M25.561 - Pain in right knee November 12:11pm CONSULT RHIANNON SPENCER KNEE PAIN, N X December 06, 2024 1:36pm Reason for Visit Admit Date Bilateral primary osteoarthritis of knee December 06, 2024 1:36pm Chief Complaint Admit Date L foot stress fx September 11, 2024 7 :45am return to work September 29, 2024 9 :51am M25.561 M25.562 December 06, 2024 12 :11pm CONSULT RHIANNON GISELMYKE BILAT KNEE PAIN, N X December 06, 2024 1:36pm Additional Source Comments INFORMATION SOURCE (unrecogn ized section and content) DATE CREATED AUTHOR 06/28/2018 [facility] DATE CREATED AUTHOR AUTHOR'S ORGANIZ ATION 2020 [facility] DATE CREATED AUTHOR AUTHOR'S ORGANIZ ATION 04/20/2020 [facility] DATE CREATED AUTHOR AUTHOR'S ORGANIZ ATION 10/19/2022 [facility] dical Specialist DATE CREATED AUTHOR AUTHOR'S ORGANIZ ATION 11/05/2022 [facility] ical Center DATE CREATED AUTHOR AUTHOR'S ORGANIZ ATION 05/11/2023 [facility] DATE CREATED AUTHOR AUTHOR'S ORGANIZ ATION 07/24/2023 [facility] DATE CREATED AUTHOR AUTHOR'S ORGANIZ ATION 12/12/2024 [facility] ysician Group DATE CREATED AUTHOR AUTHOR'S ORGANIZ ATION 12/23/2024 [facility] dical Specialists EPIC REASON FOR VISIT (unrecogniz ed section and content) Reason Comments Med Management Follow-up Reason Comments discuss medications Reason Onset Date Comments Med Refill 10/30/2024 Reason Comments needing exam to apply for disability Pt has not started paperwork for this. Hx of Stroke, anxiety and pain. She does follow with Roverto Carrizales NP for psych Care Teams (unrecognized sec tion and content) Team Status: Inactive Member Role Status Dates Julio C Jarrett MD Primary Care Provider, Attending Prov raimundo Active Team Status: Active Member Role Status Dates Julio C Jarrett MD Primary Care Provider Active Team Status: Inactive Member Role Status Dates Julio C Jarrett MD Primary Care Provider Active Abel Wan NP-C Attending Provider Activ e Team Status: Active [...] 2023 Team Status: Active Member Role Status Dates [...] 21, 2024 Michael Wells MD Admit Provider, Atte brenting Provider Active Start: January 21, 2024 Team [...] January 21, 2024 End: January 22, 2024 MARY Gomes-BC Other Provider Active Start: January 21, 2024 End: January 22, 2024 Arturo Sow DO Other Provider Active Start: January 21, 2024 End: January 22, 2024 Arlene Villanueva APRN Other Provider Active St art: January 21, 2024 End: January 22, 2024 VANESSA Arriaga Other Provider Active Sta rt: January 21, 2024 End: January 22, 2024 Chely Cordon APRN-SHIPPING ORDER CLERK-C Other Provider Active Start: January 21, 2024 End: January 22, 2024 Team Status: Active Member Role Status Dates Julio C Jarrett MD Primary Care Provider Active St art: January 22, 2024 Pop Marie PA-C Emergency Provider Active Start: January 22, 2024 Michael Wells MD Admit Provider, Atte nding Provider, Other Provider Active Start: January 22, 2024 Gina Wu Other Provider Active Start: January 22, 2024 Isela Snider , DO Other Provider Active Start: January 22, 2024 Elkin Mcmahon MD Other Provider Active Start : January 22, 2024 Ru Pearce , DO Other Provider Active Start: January 22, 2024 Roverto Plasencia , ANP-BC Other Provider Active Start: January 22, 2024 Arturo Sow , DO Other Provider Active Start: January 22, 2024 Arlene Villanueva APRN Other Provider Active St art: January 22, 2024 Emily Franco CAREER TECHNICAL SUPERVISOR-C Other Provider Active Sta rt: January 22, 2024 Chely Cordon APRN-SHIPPING ORDER CLERK-C Other Provider Active Start: January 22, 2024 [...] Team Status: Active Member Role Status Teri Jrarett MD Primary Care Provider Active St art: [...] April 30, 2024 End: April 30, 2024 Team Status: Inactive Member Role Status Dates Дмитрий Ríos DPM MS Attending Provider Active Start: May 01, 2024 End: May 01, 2024 Julio C Jarrett MD Primary Care Provider Active St art: May 01, 2024 End: May 01, 2024 Team Status: Inactive Member Role Status Dates Julio C Jarrett MD Primary Care Provider Active St art: September 11, 2024 End: September 11, 2024 Дмитрий Ríos DPM MS Attending Provider Active Start: September 11, 2024 End: September 11, 2024 Pulp Mill Operator Relationship Specialty Start Date End Date Julio C Jarrett MD [address] [place] [address] PCP - General Internal Medicine 05/04/23 Pulp Mill Operator Relationship Specialty Start Date End Date Julio C Jarrett MD [address] [place] [address] PCP - General Internal Medicine 05/04/23 Pulp Mill Operator Relationship Specialty Start Date End Date Julio C Jarrett MD [address] [place] [address] PCP - General Internal Medicine 05/04/23 Team Status: Inactive Member Role Status Dates Julio C Jarrett MD Primary Care Provider Active St art: September 29, 2024 End: September 29, 2024 Дмитрий Ríos DPM MS Attending Provider Active Start: September 29, 2024 End: September 29, 2024 Pulp Mill Operator Relationship Specialty Start Date End Date Julio C Jarrett MD [address] [place] [address] PCP - General Internal Medicine 05/04/23 Pulp Mill Operator Relationship Specialty Start Date End Date Julio C Jarrett MD [address] [place] [address] PCP - General Internal Medicine 05/04/23 Team Status: Active Member Role Status Dates Julio C Jarrett MD Primary Care Provider Active St art: December 06, 2024 Maik Mcmlilan DO Attending Provider Active S tart: December 06, 2024 Team Status: Inactive Member Role Status Dates Julio C Jarrett MD Primary Care Provider Active St art: December 06, 2024 End: December 06, 2024 Maik Mcmillan DO Attending Provider Active S tart: December 06, 2024 End: December 06, 2024 Pulp Mill Operator Relationship Specialty Start Date End Date Julio C Jarrett MD [address] [place] [address] PCP - General Internal Medicine 05/04/23 Pulp Mill Operator Relationship Specialty Start Date End Date Julio C Jarrett MD [address] [place] [address] PCP - General Internal Medicine 05/04/23 Pulp Mill Operator Relationship Specialty Start Date End Date Julio C Jarrett MD [address] [place] [address] PCP - General Internal Medicine 05/04/23 Roverto Carrizales INFECTION CONTROL COORDINATOR-JUKEBOX CHECKER [address] [facility] [address] [place] [address] Nurse Practitioner Psychiatry 12/15/24 Pulp Mill Operator Relationship Specialty Start Date End Date Julio C Jarrett MD [address] [place] [address] PCP - General Internal Medicine 05/04/23 Roverto Carrizales INFECTION CONTROL COORDINATOR-JUKEBOX CHECKER [address] [facility] [address] [place] [address] Nurse Practitioner Psychiatry 12/15/24 Goals (unrecognized section and content) Goals may [...] BE BASED ON THE PRIMARY CLINICAL RECORDS. [facility] [employer] [facility]. provides no warranty or guarantee of the accuracy or completeness of information in this document.
[2024-12-28 11:42] LABS: INR 0.94
[2024-12-28 11:45] LABS: Influenza Virus A Antigen Positive; Influenza Virus B Antigen Negative; Internal Control Within Normal Limits
[2024-12-28 11:46] LABS: Internal Control Within Normal Limits; SARS-CoV-2 Ag NEGATIVE (NEGATIVE)
[2024-12-28 11:52] LABS: Basophils Percent Auto 0.4 % (0.2-2.0); Eosinophils Absolute Auto 0.3 10^3/uL (0.0-0.7); Eosinophils Percent Auto 2.9 % (0.9-7.0); Hemoglobin 13.6 g/dL (12.0-16.0); Immature Granulocytes Abs Auto 0.04 10^3/uL (0.00-0.03); Immature Granulocytes Pct Auto 0.4 % (0.0-0.5); Lymphocytes Absolute Auto 1.3 10^3/uL (1.2-3.8); Lymphocytes Percent Auto 13.2 % (20.5-60.0); Mean Corpuscular HGB Conc 33.2 g/dL (29.9-35.2); Mean Corpuscular Hemoglobin 29.4 pg (26.7-34.0); Mean Corpuscular Volume 88.7 fL (81.0-99.0); Mean Platelet Volume 8.9 fL (9.5-13.5); Monocytes Absolute Auto 0.8 10^3/uL (0.3-0.8); Monocytes Percent Auto 8.8 % (1.7-12.0); Neutrophils Absolute Auto 7.1 10^3/uL (1.4-6.5); Neutrophils Percent Auto 74.3 % (43.0-75.0); Platelet Count 251 10^3/uL (150-450); Red Blood Count 4.62 10^6/uL (4.20-5.40); Red Cell Distribution Width 13.4 % (11.0-15.0); White Blood Count 9.6 10^3/uL (4.0-11.0)
[2024-12-28] MEDS: KETOROLAC TROMETHAMINE 30 MG/ML VIAL IM (12:04)
[2024-12-28 12:08] LABS: Alanine Aminotransferase 49 U/L (14-59); Albumin Level 3.8 g/dL (3.4-5.0); Alkaline Phosphatase 86 U/L (46-116); Anion Gap 15.1; Aspartate Amino Transferase 38 U/L (15-37); BUN Creatinine Ratio 6.4; Bilirubin Total 0.8 mg/dL (0.2-1.0); Calcium 9.1 mg/dL (8.5-10.1); Carbon Dioxide 26.4 mmol/L (21.0-32.0); Chloride 103 mmol/L (98-107); Estimated GFR (African America >60 (>=60 mL/min/1.73m^2); Estimated GFR (Non-African Ame 51 (>=60 mL/min/1.73m^2); Globulin 3.7 g/dL; Glucose 142 mg/dL (74-106); Potassium 4.5 mmol/L (3.5-5.1); Sodium 140 mmol/L (136-145); Total Protein 7.5 g/dL (6.4-8.2); Troponin I High Sensitivity 5.9 pg/mL (4.0-51.3)
[2024-12-28] MEDS: lidocaine HCL 15 ML, MAG HYDROX/ALUMINUM HYD/SIMETH 30 ML, HYOSCYAMINE SULFATE 0.25 MG PO (12:53)
--- NOTE | 2024-12-28 14:49 | ED.CHESTPAI1 ---
HPI - Chest Pain General Chief Complaint: Chest Pain Stated Complaint: CHEST PAINS SOB Time Seen by Provider: 12/28/24 10:56 Source: patient Mode of arrival: walk-in History of Present Illness HPI narrative: The patient is a 54-year-old female is coming to the ER with 1 week history of runny nose congestion, chills in addition to chest pain associated with a cough that is productive , there is no shortness of breath but the patient mentioned that she has been feeling some retrosternal chest pain that is continuous for the last 7 days and pressure-like. Sometimes related to taking a deep breath and sometimes just continuous The patient denies any nausea vomiting and no exposure to anybody with similar symptoms Related Data Home Medications ?Medication ?Instructions ?Recorded ?Confirmed venlafaxine 150 mg 150 mg PO QPM 04/28/23 07/21/23 capsule,extended release 24 hr (Effexor XR) aripiprazole 10 mg tablet (Abilify) 10 mg PO DAILY 07/21/23 07/21/23 hydrochlorothiazide 25 mg tablet 25 mg PO DAILY 07/21/23 07/21/23 losartan 25 mg tablet 25 mg PO DAILY 07/21/23 07/21/23 pravastatin 40 mg tablet 40 mg PO DAILY 07/21/23 07/21/23 Previous Rx's ?Medication ?Instructions ?Recorded clindamycin HCl 300 mg capsule 300 mg PO Q6H 14 days #56 caps 07/26/23 sulfamethoxazole 800 1 tab PO BID 14 days #28 tabs 07/26/23 mg-trimethoprim 160 mg tablet cyclobenzaprine 10 mg tablet 10 mg PO TID PRN leg pain 10 days 07/27/23 #30 tabs hydrocodone 5 mg-acetaminophen 325 1 tab PO Q6H PRN pain 7 days #28 07/27/23 mg tablet tabs rivaroxaban 15 mg tablet (Xarelto) 15 mg PO BID clot prevention 21 07/27/23 days #42 tabs acetaminophen 650 mg 650 mg PO Q8H PRN fever or pain 12/28/24 tablet,extended release (Tylenol 8 #20 tabs Hour) guaifenesin 600 mg tablet, 600 mg PO BID PRN cough #10 tabs 12/28/24 extended release 12 hr (Mucinex) Allergies Allergy/AdvReac Type Severity Reaction Status Date / Time amoxicillin Allergy Mild Rash Verified 04/28/23 15:20 Review of Systems ROS Status of ROS 10 or more systems reviewed and unremarkable except as noted in history and below [facility] Medical History (Updated 12/28/24 @ 12:38 by Sarah Velazquez MD) Sepsis ?A41.9 - Sepsis, unspecified organism (ICD-10) Tubal ligation evaluation ?Z01.818 - Encounter for other preprocedural examination (ICD-10) Visual disturbance ?H53.9 - Unspecified visual disturbance (ICD-10) Hip pain, right ?M25.551 - Pain in right hip (ICD-10) Menopausal state ?N95.1 - Menopausal and female climacteric states (ICD-10) TIA (transient ischemic attack) ?G45.9 - Transient cerebral ischemic attack, unspecified (ICD-10) Dizziness ?R42 - Dizziness and giddiness (ICD-10) COVID ?U07.1 - COVID-19 (ICD-10) Acute bronchitis ?J20.9 - Acute bronchitis, unspecified (ICD-10) Cough ?R05.9 - Cough, unspecified (ICD-10) Epistaxis ?R04.0 - Epistaxis (ICD-10) Sleep apnea ?G47.30 - Sleep apnea, unspecified (ICD-10) Rupture Achilles tendon ?S86.019A - Strain of unspecified Achilles tendon, initial encounter (ICD-10) Migraine ?G43.909 - Migraine, unspecified, not intractable, without status migrainosus (ICD-10) High cholesterol ?E78.00 - Pure hypercholesterolemia, unspecified (ICD-10) GERD (gastroesophageal reflux disease) ?K21.9 - Gastro-esophageal reflux disease without esophagitis (ICD-10) Anxiety ?F41.9 - Anxiety disorder, unspecified (ICD-10) Surgical History (Updated 04/28/23 @ 15:46 by Radha Cherry RN) Status post Achilles tendon repair ?Z98.890 - Other specified postprocedural states (ICD-10) H/O repair of rotator cuff ?Z98.890 - Other specified postprocedural states (ICD-10) History of abdominoplasty ?Z98.890 - Other specified postprocedural states (ICD-10) Family History (Updated 07/21/23 @ 14:26 by Jaquelin Ortiz) Father Coronary artery disease Hypertension Prostate cancer Family history of cancer Mother Coronary artery disease Hypertension Family history of stroke Social History (Updated 07/21/23 @ 14:28 by Jaquelin Ortiz) Within the past year, how often did you have a drink containing alcohol: 2-4 times a month Within the past year, how many standard drinks containing alcohol did you have on a typical day: 1 or 2 Within the past year, how often did you have six or more drinks on one occasion: never Total score: 0 Score interpretation: A score less than 3 is consistent with normal alcohol consumption. Smoking status: Never smoker Non-prescribed substance use: denies use Previous occupational history: [employer] Highest level of school completed/degree received: high school graduate Are you now , , , , never or living with a partner: In a typical week, how many times do you talk on the telephone with family, friends, or neighbors: 3 or more times per week How often do you get together with friends or relatives: twice per week How often do you attend religion or scientologist services: never Do you belong to any clubs or organizations such as religion groups unions, fraternal or athletic groups, or school groups: no Total score: 1 Score interpretation: A score of less than or equal to 1 indicates the most socially isolated. Little interest or pleasure in doing things: not at all Feeling down, depressed, or hopeless: not at all Feel stressed/tense/nervous/anxious/difficulty sleeping: not at all Exam Narrative Exam Narrative: Nurses notes and vital signs reviewed and patient is not hypoxic. General: Well-appearing and in no apparent distress. Skin: Warm, dry, no pallor noted. No rash. Head: Normocephalic, atraumatic. Neck: Supple, non-tender. Eye: Pupils are equal, round and EOMI. No scleral icterus. Ears, Nose, Mouth, and Throat: TM are clear, no nasal mucosal hypertrophy. Oral mucosa is moist, no posterior oropharynx erythema, uvula is mid-line Cardiovascular: Regular Rate and Rhythm without murmur, gallop or rub. Respiratory: No accessory muscle use or respiratory distress. Lungs are clear to auscultation, no wheezing, rales or rhonchi Chest Wall: no tenderness Back: No midline thoracic or lumbar vertebral tenderness. No CVA tenderness Musculoskeletal: normal ROM, no calf or popliteal tenderness, no lower extremity edema/swelling GI: Abdomen is soft, non-distended. Normal bowel sounds. No masses appreciated. No tenderness to palpation. No rebound, guarding, or rigidity noted. Neurological: A&O x4. No cranial nerve dysfunction observed. No truncal ataxia. Moves all extremities. Sensation intact. Psychiatric: Cooperative and interactive. Normal mood and affect. Constitutional Vital Signs, click to edit/add: Last Vital Signs Temp 100.1 F 12/28/24 10:52 Pulse 108 H 12/28/24 12:50 Resp 22 H 12/28/24 12:50 BP 136/97 H 12/28/24 12:30 Pulse Ox 99 12/28/24 11:12 O2 Del Method Room Air 12/28/24 11:12 Course Vital Signs Vital signs: Vital Signs Temperature 100.1 F 12/28/24 10:52 Pulse Rate 108 H 12/28/24 10:52 Respiratory Rate 20 12/28/24 10:52 Blood Pressure 145/96 H 12/28/24 10:52 Pulse Oximetry 98 12/28/24 10:52 Oxygen Delivery Method Room Air 12/28/24 10:52 Temperature 100.1 F 12/28/24 10:52 Pulse Rate 108 H 12/28/24 12:50 Respiratory Rate 22 H 12/28/24 12:50 Blood Pressure 136/97 H 12/28/24 12:30 Pulse Oximetry 99 12/28/24 11:12 Oxygen Delivery Method Room Air 12/28/24 11:12 MDM - Chest Pain MDM Narrative Medical decision making narrative: The patient EKG showing sinus rate with a heart rate of 101 with some sinus tachycardia no ST elevation noted in any leads The patient chest x-ray showed no acute pathology Flu test is positive for flu A The patient troponin is negative She is presenting to us with a typical bronchitis symptoms her pain could be mostly pleuritic Patient was discharged home with Mucinex and Tylenol as supportive care The patient did had some low-grade fever here and she was instructed about the importance of fever control at home The patient is to follow up with primary care physician in next 2-3 days or to return to the emergency department should any of the signs or symptoms worsen or new symptoms develop. The patient agrees with the following Diagnosis and Treatment plan and the patient will be discharged home. With the fact that the patient has been having her symptoms for more than a week there is no need for any further treatment right now with any Tamiflu Lab Data Labs: Lab Results 12/28/24 12/28/24 Range/Units 11:06 11:44 WBC 9.6 (4.0-11.0) 10^3/uL RBC 4.62 (4.20-5.40) 10^6/uL Hgb 13.6 (12.0-16.0) g/dL Hct 41.0 (36.0-48.0) % MCV 88.7 (81.0-99.0) fL MCH 29.4 (26.7-34.0) pg MCHC 33.2 (29.9-35.2) g/dL RDW 13.4 (11.0-15.0) % Plt Count 251 (150-450) 10^3/uL MPV 8.9 L (9.5-13.5) fL Neut % (Auto) 74.3 (43.0-75.0) % Lymph % (Auto) 13.2 L (20.5-60.0) % Glascock % (Auto) 8.8 (1.7-12.0) % Eos % (Auto) 2.9 (0.9-7.0) % Baso % (Auto) 0.4 (0.2-2.0) % Neut # (Auto) 7.1 H (1.4-6.5) 10^3/uL Lymph # (Auto) 1.3 (1.2-3.8) 10^3/uL Glascock # (Auto) 0.8 (0.3-0.8) 10^3/uL Eos # (Auto) 0.3 (0.0-0.7) 10^3/uL Baso # (Auto) 0.0 (0.0-0.1) 10^3/uL Abs Immat Gran (auto) 0.04 H (0.00-0.03) 10^3/uL Imm/Tot Granulo (auto) 0.4 (0.0-0.5) % PT 10.0 (9.0-11.6) sec INR 0.94 Sodium 140 (136-145) mmol/L Potassium 4.5 (3.5-5.1) mmol/L Chloride 103 (98-107) mmol/L Carbon Dioxide 26.4 (21.0-32.0) mmol/L Anion Gap 15.1 BUN 7.0 (7.0-18.0) mg/dL Creatinine 1.10 H (0.55-1.02) mg/dL Est GFR ( Amer) >60 (>=60 mL/min/1.73m^2) Est GFR (Non-Af Amer) 51 L (>=60 mL/min/1.73m^2) BUN/Creatinine Ratio 6.4 Glucose 142 H (74-106) mg/dL Calcium 9.1 (8.5-10.1) mg/dL Total Bilirubin 0.8 (0.2-1.0) mg/dL AST 38 H (15-37) U/L ALT 49 (14-59) U/L Alkaline Phosphatase 86 (46-116) U/L Troponin I High Sens 5.9 (4.0-51.3) pg/mL Total Protein 7.5 (6.4-8.2) g/dL Albumin 3.8 (3.4-5.0) g/dL Globulin 3.7 g/dL Albumin/Globulin Ratio 1.0 Influenza Type A Ag Positive A Influenza Type B Ag Negative SARS-CoV-2 Ag (CV2AG) Negative (NEGATIVE) Discharge Plan Discharge Chief Complaint: Chest Pain Clinical Impression: Flu Patient Disposition: Home, Self-Care Time of Disposition Decision: 12:38 Condition: Good Prescriptions / Home Meds: New guaifenesin [Mucinex] 600 mg tablet extended release 12hr 600 mg PO BID PRN (Reason: cough) Qty: 10 0RF acetaminophen [Tylenol 8 Hour] 650 mg tablet extended release 650 mg PO Q8H PRN (Reason: fever or pain) Qty: 20 0RF No Action venlafaxine [Effexor XR] 150 mg capsule,extended release 24hr 150 mg PO QPM pravastatin 40 mg tablet 40 mg PO DAILY aripiprazole [Abilify] 10 mg tablet 10 mg PO DAILY losartan 25 mg tablet 25 mg PO DAILY hydrochlorothiazide 25 mg tablet 25 mg PO DAILY clindamycin HCl 300 mg capsule 300 mg PO Q6H 14 Days Qty: 56 0RF sulfamethoxazole-trimethoprim 800-160 mg tablet 1 tab PO BID 14 Days Qty: 28 0RF hydrocodone-acetaminophen 5-325 mg tablet 1 tab PO Q6H PRN (Reason: pain) 7 Days Qty: 28 0RF Xarelto 15 mg tablet 15 mg PO BID 21 Days Qty: 42 0RF Rx Instructions: must administer with a meal/food cyclobenzaprine 10 mg Tablet 10 mg PO TID PRN (Reason: leg pain) 10 Days Qty: 30 0RF Print Language: Turkish Instructions: Influenza (DC) Referrals: JULIO C JARRETT [Primary Care Provider] - 1 week Discharge Date/Time: 12/28/24 13:01
== END 2024-12-28 13:01 | disposition home or self-care (01) ==
PROVIDERS: Emergency Provider Emergency Medicine; PCP Internal Medicine
DX: J10.1 Influenza due to other identified influenza virus with other respiratory manifestations (principal); R50.9 Fever, unspecified
CPT/HCPCS: 36415; 71045; 80053; 84484; 85025; 85610; 87804; 87811; 93005; 96372; 99285; J1885

== ENCOUNTER 2025-01-30 12:28 | Outpatient (OUT) | payer OTHER, SELFPAY ==
--- NOTE | 2025-01-30 12:31 | XR_ITS ---
The [address] [address] Patient Name: YARELIS FIGUEROA MRN: [id number] date: 1970 Sex: F Assigned Patient Location: [facility] Current Patient Location: [facility] Accession/Order Number: [id number] Exam Date: 01/30/2025 15:44 Report Date: 01/30/2025 15:46 At the request of: ДМИТРИЙ RÍOS DPJake Procedure: XR foot LT min 3V LEFT FOOT - 3 views CLINICAL DATA: Foot pain, greater laterally. Previous Achilles surgery. No recent injury. COMPARISON: 06/14/2024 Weightbearing AP, lateral and oblique views were obtained. There is osteopenia. There is no acute fracture or dislocation. Mild degenerative changes are present at the first metatarsal phalangeal joint and dorsum of the tarsometatarsal joints. There are posterior and plantar calcaneal spurs. There are no significant soft tissue abnormalities. XR/XR foot LT min 3V IMPRESSION: OSTEOPENIA AND MILD DEGENERATIVE CHANGES. NO ACUTE BONY FINDINGS. Impression dictated by: Yarelis Cabrera M.D.01/30/2025 3:46 PM Dictation Location: [employer] Electronically authenticated by: [id number] Y Date: 01/30/2025 15:46
--- OUTSIDE RECORDS SUMMARY | 2025-01-30 12:38 | XMS_ITS | CCD ---
Author Organization [facility] ion Partnership [facility] Care Team Providers Care Pediatric Physical Therapist Name Role Phone TRABOULSSI, MOURHAF Unavailable Unavailable VERONA, АНДРЕЙ Unavailable Unavailable TRABOULSSI, MOURHAF Unavailable Unavailable VERONA, АНДРЕЙ Unavailable Unavailable Britney Betancourt Unavailable Abel Wan Unavailable MD Julio C Jarrett Primary Care Provider VANESSA Wan Attending Provider MD Julio C Jarrett Attending Provider Abel Hurst Unavailable MD Julio C Jarrett Primary Care Provider MD Julio C Jarrett Attending Provider [phone] ДМИТРИЙ RÍOS Attending Unavailable ДМИТРИЙ RÍOS Consulting [...] TAMMY ., IVANIA PEREZ Consulting Unavailable SHANA LUEK Consulting Unavailable GABE MCDANIEL Consulting Unavailable ДМИТРИЙ RÍOS Attending Unavailable ДМИТРИЙ RÍOS Admitting Unavailable KOLBY, DR BUNCH Primary Care Unavailable AMELIE MARKS Admitting Unavailable AMELIE MARKS Attending Unavailable AMELIE MARKS Consulting Unavailable KOLBY, DR BUNCH Primary Care Unavailable JOEY MENEZES Consulting Unavailable PAY ., DR PEDROZA Admitting Unavailable PAY ., DR PEDROZA Consulting Unavailable KOLBY, DR BUNCH Primary Care Unavailable PAY ., DR PEDROZA Attending Unavailable SHELBY ECHAVARRIA Consulting Unavailable GIRMA, DR DELONTE Shannon Admitting Unavailbenjamin RAYO, DR DELONTE Shannon Attending Unavailbenjamin RAYO, DR DELONTE Shannon Consulting Unavailabl e KOLBY, DR BUNCH Primary Care Unavailable SUTHERLIN, DR WILLIAM Cedeno Consulting Unavailable JANNETTE QUINN [...] Other Provider MD Elkin Mcmahon Other Provider [phone] DO Ru Pearce Other Provider Erinn [facility]- Roverto Other Provider DO Arturo Sow Other Provider MARK Villanueva Other Provider JUN Franco-Mary Ramsay Other Provider MARK Cordon-WIRELESS RETAIL MANAGER-C Chely Brown Other Provider MD Julio C Jarrett Primary Care Provider LATRICE Marie Emergency Provider [phone] MD Michael Wells Admit Provider MD Michael Wells Attending Provider Gina Wu Other Provider Unavailable DO Isela Snider Other Provider MD Elkin Mcmahon Other Provider DO Ru Pearce Other Provider Erinn [facility]- [place]over[place] Other Provider DO Arturo Sow Other Provider MARK Villanueva Other Provider [phone] JUN Franco-Mary Ramsay Other Provider MARK Cordon-WIRELESS RETAIL MANAGER-C Chely Brown Other Provider RENAE Ríos Attending Provider MD Ayaan Pulido Attending Provider MD Julio C Jarrett Primary Care Provider RENAE Ríos Attending Provider RENAE Ríos Attending Provider MD Julio C Jarrett Primary Care Provider MD Julio C Jarrett Primary Care Provider RENAE Ríos Attending Provider [phone] Julio C Jarrett MD Primary Care Provider [phone] Julio C Jarrett MD Primary Care Provider Дмитрий Ríos DPM Attending Provider [phone] Maik Mcmillan DO Attending Provider [phone] Дмитрий Ríos Attending Unavailable Julio C Jarrett [...] Care Unavailable Дмитрий Ríos Admitting Unavailable Gillian-Nossek ZIPPER JOINER-EVENT TECHNICIAN, Roverto Joseph Unavailable ALL, ROVERTO Joseph Attending Unavailab JULIO C Bob Attending Unavailable KOLBY, JULIO C Allen Attending Unavailable KOLBY, JULIO C Allen Referring Unavailable GILLIAN-NOSSEK, ROVERTO Joseph Attending Unavailab le GILLIAN-NOSSEK, ROVERTO Joseph Attending Unavailab le GILLIAN-NOSSEK, ROVERTO Joseph Attending Unavailab le DIDION, JACQUIE Allen Attending Unavailable RISALITI, RHIANNON Lind Attending Unavailable KOLBY, JULIO C Allen Referring Unavailable PETITTI, MARIA T Cohen Attending Unavailable RISALITI, RHIANNON Lind Referring Unavailable TIMMISAURELIANO Attending Unavailable JULIO C JARRETT Referring Unavailable GILLIAN-NOSSEK, ROVERTO Joseph Attending Unavailab le GILLIAN-NOSSEK, ROVERTO Joseph Attending Unavailab le KOLBY, JULIO C Allen Referring Unavailable DIDION, JACQUIE Allen Attending Unavailable RISALITI, RHIANNON Lind Attending Unavailable KOLBY, JULIO C Allen Referring Unavailable GILLIAN-NOSSEK, ROVERTO Joseph Attending Unavailab le Unavailable Unavailable Unavailable Allergies Allergy Classification Reported Allergen(s) Allergy Type Date of Onset Reaction(s) Facility (20 sources) Amoxicillin; Translations: [amoxicillin] Drug Allergy 03-15-20 18 rash, Hives [facility] (20 sources) oxyCODONE Drug Allergy 03-15-20 18 GI intolerance [facility] (5 sources) Acetaminophen / oxyCODONE Drug Allergy vomiting [employer] Other (14 sources) SOAPS AND PERFUMES Propensity to adverse reactions 01-21-20 Unknown, Rash [facility] (1 source) Acetaminophen / oxyCODONE Drug Allergy 11-20-20 [facility] Rep[facility] (20 sources) Acetaminophen Drug Allergy 01-21-20 GI intolerance [facility] (19 sources) buPROPion Drug Allergy 04-02-20 [facility] Medications Current Medications Medication Drug Class(es) Dates Sig (Normalized) Sig (Original) Acetaminophen (19 sources) Acetaminophen (TYLENOL 8 HOUR PO) Tylenol Active aspirin 81 mg delayed release oral [...] tablet (20 sources) P2Y12 Platelet Inhibitor Start: End: take 1 tablet by mouth once daily clopidogrel (Plavix) 75 MG tablet Take 75 mg by mouth Daily 01/22/2024 01/02/2025 Discontinued diphenhydrAMINE 12.5 MG/5ML elixir 50 mg, aluminum-magnesium [...] by mouth every week Ergocalciferol 1.25 MG (94767 UT) 1 capsule Orally Q week for [...] 2024 11:00pm famotidine 20 mg oral tablet (20 sources) Histamine-2 Receptor Antagonist take 1 tablet by mouth once daily as needed famotidine (Pepcid) 20 MG tablet Take 20 mg by mouth 1 (one) time each day at the same time. PRN Active gabapentin 300 mg oral capsule (20 sources) Anti-epileptic Agent Start: take 4 capsules by mouth at bedtime, then take 1 capsule by mouth once daily in the morning, then take 2 capsules by mouth once daily at bedtime gabapentin (Neurontin) 300 MG capsule Indications: Restless legs , Idiopathic peripheral neuropathy Take 4 capsules (1,200 mg) by mouth at bedtime TAKE 1 CAPSULE BY MOUTH EVERY MORNING AND AFTERNOON AND TAKE TWO CAPSULES BY MOUTH EVERY NIGHT AT BEDTIME 120 capsule 2 01/02/2025 Active Start: 03-13-2024 End: 09-15-2024 take 2 capsules by mouth once daily at bedtime as needed, then take 1 capsule by mouth once daily as needed gabapentin (Neurontin) 300 MG capsule Indications: Restless legs , Idiopathic peripheral neuropathy take 2 capsules by mouth once daily at bedtime (MAY ALSO TAKE 1 CAPSULE DAILY NEEDED) 180 capsule 3 03/13/2024 09/15/2024 Discontinued (Reorder) Start: 08-03-2019 End: 01-02-2025 take 1 capsule by mouth once daily in the morning, then take 2 capsules by mouth once daily at bedtime gabapentin (Neurontin) 300 MG capsule Indications: Restless legs , Idiopathic peripheral neuropathy TAKE 1 CAPSULE BY MOUTH EVERY MORNING AND AFTERNOON AND TAKE TWO CAPSULES BY MOUTH EVERY NIGHT AT BEDTIME 120 capsule 1 11/24/2024 01/02/2025 Discontinued (Reorder) hydroCHLOROthiazide 25 mg oral tablet (20 sources) [...] Start: 01-21-2024 take 1 tablet by sobia once daily as needed for anxiety Hydroxyzine Hcl 50 mg tablet Active 50 MG PO Daily as needed for anxiety January 21, 2024 12:00am ibuprofen 600 mg oral tablet (19 sources) Nonsteroidal Anti-inflammatory Drug ibuprofen 600 MG [...] 4-6 hours as needed for tongue pain 120 April 29, 2024 11:00pm Swish and spit [...] 21, 2024 12:00am April 30, 2024 11:04am Completed/Discontinued Medications Medication Drug Class(es) Dates Sig (Normalized) Sig (Original) ARIPiprazole 5 mg oral tablet (20 sources) Atypical Antipsychotic Start: 04-30-2024 End: 01-01-2025 take 1 tablet by mouth once daily ARIPiprazole (Abilify) 5 MG tablet Indications: Bipolar affective disorder, currently depressed, moderate (CMS/HCC) Take 1 tablet (5 mg) by mouth Daily 30 tablet 2 09/12/2024 01/01/2025 Discontinued Start: 04-30-2024 Aripiprazole A ctive MG PO April 30, 2024 12:00am Start: 01-21-2024 End: 04-30-2024 take 1 tablet by mouth once daily Aripiprazole 10 mg tablet Discontinued 10 MG PO Daily January 21, 2024 12:00am April 30, 2024 11:03am take 1 tablet by sobia th every twenty-four hours Abilify 5 MG 1 tablet Orally Once a day Active busPIRone hydrochloride 10 mg oral tablet (17 sources) Start: 03-15-2018 End: 08-03-2019 take 1 tablet by mouth once daily Buspirone 10 mg tablet Discontinued 10 MG PO Daily March 14, 2018 11:00pm August 03, 2019 1:28pm take 1 tablet by sobia th every twelve hours busPIRone HCl 5 MG 1 tablet Orally Twice a day for 30 days Active fluocinonide 0.5 mg/ml topical solution (16 sources) Corticosteroid Start: 05-25-2024 End: 01-01-2025 fluocinonide (Lidex) 0.05 % external solution Indications: Lichen planopilaris Apply to affected areas on the scalp, up to twice a day when flared, 30 day supply 60 mL 11 05/25/2024 01/01/2025 Discontinued lisinopril 10 mg oral tablet (14 sources) Angiotensin Converting Enzyme Inhibitor Start: 03-15-2018 End: 03-16-2018 take 1 tablet by mouth once daily Lisinopril 10 mg tablet Discontinued 10 MG PO Daily March 14, 2018 11:00pm March 16, 2018 10:27am nystatin [id number] unt/ml / triamcinolone acetonide 1 mg/ml topical cream (16 sources) Polyene Antifungal, Corticosteroid Start: 05-19-2024 End: 01-01-2025 nystatin-triamcin olone (Mycolog II) cream Indications: Skin rash in pelvic region Apply topically 2 (two) times a day Use for 2 weeks max 60 g 1 05/19/2024 01/01/2025 Discontinued phentermine hydrochloride 37.5 mg oral capsule (12 sources) Sympathomimetic Amine Anorectic Start: 09-20-2024 End: 01-01-2025 take 35-35.9 capsules by mouth before mealtime phentermine (Adipex-P) 37.5 MG capsule Indications: Class 2 obesity due to excess calories without serious comorbidity with body mass index (BMI) of 35.0 to 35.9 in adult Take 1 capsule (37.5 mg) by mouth in the morning. Take before meals. 30 capsule 10/30/2024 01/01/2025 Discontinued pravastatin sodium 40 mg oral tablet (9 sources) HMG-CoA Reductase Inhibitor Start: 01-21-2024 End: 01-22-2024 take 1 tablet by mouth once daily Pravastatin 40 mg tablet Discontinued 40 MG PO Daily January 21, 2024 12:00am January 22, 2024 2:20pm terbinafine hydrochloride 10 mg/ml topical cream (16 sources) Allylamine Antifungal Start: 05-25-2024 End: 01-01-2025 terbinafine (LamISIL AT ATHLETES FOOT) 1 % cream Indications: Tinea corporis Apply to groin topically once a day/30 days 42 g 3 05/25/2024 01/01/2025 Discontinued Triamcinolone (8 sources) Corticosteroid Start: 08-22-2018 Kenalog [...] [Unspecified asthma, uncomplicated] Chronic Chronic kidney disease (20 sources) Chronic kidney disease stage 3; Translations: [...] Translations: [Essential (primary) hypertension] Onset: 12-11-2021 Resolved: 09-13-2023 Chronic Hemorrhoids (5 sources) Hemorrhoids; Translations: [Unspecified hemorrhoids] Episodic Miscellaneous mental health disorders (19 sources) Functional visual loss; Translations: [Other somatoform [...] of colonic polyps] Episodic Other congenital anomalies (19 sources) Porokeratosis; Translations: [Other specified congenital malformations of skin] Onset: 10-04-2023 10-04-2023 Chronic Other endocrine disorders (20 sources) Disorder of adrenal gland; Translations: [Disorder [...] system, unspecified] Onset: 05-07-2023 05-07-2023 Chronic Other hereditary and degenerative nervous system conditions (4 sources) Tardive dyskinesia; Translations: [Drug induced subacute dyskinesia] Onset: 01-18-2025 01-18-2025 Episodic Other liver diseases (19 sources) Steatosis of liver; Translations: [Fatty (change of) liver, not elsewhere classified] Onset: 05-07-2023 05-07-2023 Chronic Other nervous system disorders (4 sources) Piriformis syndrome; Translations: [Lesion of sciatic nerve, left lower limb] Chronic Other nervous system disorders (1 source) Lesion of sciatic nerve, left lower limb Onset: 05-09-2022 Resolved: 05-09-2022 Chronic Other nervous system disorders (19 sources) Peripheral nerve disease ; Translations: [Polyneuropathy, unspecified] Onset: 05-07-2023 05-07-2023 Chronic Other nervous system disorders (5 sources) Idiopathic peripheral neuropathy; Translations: [Hereditary and [...] 35.0 to 35.9 in adult] 10-30-2024 Chronic Other screening for suspected conditions (not mental disorders or infectious disease) (2 sources) Patient encounter status; Translations: [Encounter for screening mammogram for malignant neoplasm of breast] 01-02-2025 Episodic Residual codes; unclassified (20 sources) Obstructive sleep apnea syndrome; Translations: [Obstructive sleep apnea (adult) (pediatric)] Onset: 05-07-2023 05-07-2023 Chronic Residual codes; unclassified (2 sources) Obstructive sleep apnea (adult) (pediatric) Onset: 12-11-2021 Resolved: 06-25-2022 Chronic Residual codes; unclassified (5 sources) Memory impairment; Translations: [Other amnesia] Episodic Residual codes; unclassified (6 sources) H/O: high risk medication; Translations: [Personal history of other drug therapy] Onset: 01-18-2025 12-21-2024 Episodic Spondylosis; intervertebral disc disorders; other [...] Onset: 2 Resolved: 2 Episodic Mood disorders (19 sources) Mood disorders Onset: 3 Resolved: 5 05-10-2023 Nonspecific chest pain (20 sources) Chest pain, unspecified; Translations: [Chest pain] Onset: 8 Resolved: 3 03-15-2018 Episodic Nutritional deficiencies (20 sources) Iron deficiency; Translations: [Iron deficiency] Onset: 3 05-07-2023 Episodic Open wounds of extremities (5 sources) Laceration without foreign body, left ankle, initial encounter; Translations: [Laceration of left Achilles tendon, initial encounter] Onset: 3 Episodic Other aftercare (1 source) penitentiary (current) use of aspirin; Translations: [SUPERVISOR MICROW[employer] CURRENT USE OF ASPIRIN] Onset: 2 Episodic Other aftercare (1 source) Other [facility] (current) drug therapy; Translations: [OTH SUPERVISOR MICROW[employer] CURRENT DRUG THERAPY] Onset: 2 Episodic Other circulatory disease (20 sources) History of cerebrovascular accident; Translations: [Personal history of transient ischemic attack (TIA), and cerebral infarction without residual deficits] Onset: 4 11-29-2023 Episodic Other connective tissue disease (19 sources) Tear of left rotator cuff; Translations: [Unspecified rotator cuff tear or rupture of left shoulder, not specified as traumatic] Onset: 3 10-04-2023 Episodic Other gastrointestinal disorders (19 sources) Dysphagia; Translations: [Dysphagia, pharyngoesophageal phase] Onset: 3 10-04-2023 Episodic Other injuries and conditions due to external causes (1 source) Unspecified injury of right lower leg, initial encounter Onset: 2 Resolved: 2 Episodic Other nervous system disorders (20 sources) Impaired cognition; Translations: [Other symptoms and signs involving cognitive functions and awareness] Onset: 3 05-07-2023 Episodic Other nervous system disorders (19 sources) H/O: migraine; Translations: [Personal history of [...] By: Johnnie Carlos on 12-06-2024 Study report [facility] [address] [place] [id number] XRay Report Signed Patient: Yarelis Swenson MR#: [id number] : 1970 Acct:[id number] Age/Sex: 54 / F ADM Date: 5 Loc: [facility] Room: Type: [facility] Attending Dr: Maik Mcmillan DO Copies to: [...] SPACES. Impression dictated by: Kd Carlos Jr., D.OFederico12/06/2024 6:51 PM Dictation Location: [place] [address] Transcribed By: [facility] 12/06/241850 Dictated By: Kd Carlos Jr, DO 12/06/241850 Signed By: 12/06/241850 [facility] XR knee BI 3V - NOT FOR ER U [place] 12-06-2024 XR knee BI 3V - NOT FOR ER USE [facility] [address] [place] [address] XRay Report Signed Patient: Yarelis Swenson MR#: [id number] : 1970 Acct:[id number] Age/Sex: 54 / F ADM Date: 12/06/24 Loc: [facility] Room: Type: [facility] Attending Dr: Maik Mcmillan DO Copies to: [...] Carlos Jr., D.O.12/06/2024 6:51 PM Dictation Location: [place] [address] Transcribed By: [facility] 12/06/241850 Dictated By: Kd Carlos Jr, DO 12/06/241850 Signed By: 12/06/241850 Normal [facility] [place] 02-25-2024 L Specimen: Received: 02/25/24 Status: SOUCandace Req Num: [id number] Spec Type: Surgical Subm Dr: Ayaan Puliod MD Tissues: A Colon Biopsy (TRANSV POLYP) Procedures: HE/2, Gross/Micro L4 Age/ Patient Sex Location Account Attending Physician Yarelis Swenson 54/F [id number] Ayaan Pulido MD SPEC NUM: [id number] RECD: 02/25/24 STATUS: SOUT REQ NUM: [id number] TERESA: 02/25/24- SUBM DR: Ayaan Pulido MD ENTERED: 02/25/24 [facility] DR: SPEC TYPE: Surgical DEPT: S ORDERED: [...] in one cassette labeled A1. CPT Codes 51293 Specimen: [id number] Received: 02/25/24 Status: LEFTYCandace Lavinia Num: [id number] Spec Type: Surgical Subm Dr: Ayaan Pulido MD Tissues: A Colon Biopsy (TRANSV POLYP) Procedures: HE/2, Gross/Micro L4 Patient: Yarelis Swenson [id number] (Continued) Signed (signature on file) Miguel Angel Vital MD 02/28/24 1757 Normal [facility] E[facility] echo transthoracicon [facility] echo transthoracic [facility] [address] [place] [address] Echocardiogram Signed Patient: Yarelis Swenson MR#: [id number] : 1970 Acct:[id number] Age/Sex: 53 / F ADM Date: 01/21/24 Loc: Room: [address] [place] [address] Type: ADM IN Attending Dr: Michael Wells MD Ordering Provider: Andrew Cordero DO,RES Date of Service: 01/21/24 [facility] echo transthoracic: Stroke, please do bubble study Copies to: Koki Sow MD, [facility] Andrew Cordero DO,RES BSA: 1.9 m2 [...] 01/22/24 0928 Signed By: Koki Sow MD, [facility] 01/22/24 1510 Normal [facility] A1C with Estimated Average G bethkaro 01-21-2024 Glucose [Mass/Vol] 114 mg/dL Normal [facility] Comment on above: Result Comment: PERF ORMED BY: [address] [address] PATHOLOGIST EXTERIOR DESIGNER GONSALO BARKER M.D. Performed By: #### A 1C [facility] eA #### [place] [id number] [place] Activated partial thrombopla stin time (aPTT) in platelet poor plasma by coagulation aOrdered By: Pop Marie on 01-21-2024 aPTT Coag (PPP) [Time] 28.8 s 25.1-36.5 [facility] Comment on above: A hematocrit value g reater than 55% may lead to inaccurate results in coagulation testing. Patients having hematocrit values >55% require a special collection tube for coagulation studies. Please contact the laboratory at [phone] for redraw instructions. Alanine aminotransferase [En zymatic activity/volume] in Serum or PlasmaOrdered By: Pop Marie on 01-21-2024 ALT [Catalytic activity/Vol] 15 U/L Normal 7-52 [facility] Comment on above: Performed By: #### A 1C WT eA #### [address] Albumin [Mass/volume] in Ser um or Plasma by Bromocresol green (BCG) dye binding methoOrdered By: Pop Marie on 01-21-2024 Albumin BCG dye [Mass/Vol] 4.4 g/dL 3.5-5.7 [facility] Alkaline phosphatase [Enzyma tic activity/volume] in Serum or PlasmaOrdered By: Pop Marie on 01-21-2024 ALP [Catalytic activity/Vol] 61 U/L Normal 34-104 [facility] Comment on above: Performed By: #### A 1C WT eA #### [address] Aspartate aminotransferase [ Enzymatic activity/volume] in Serum or PlasmaOrdered By: Pop Marie on 01-21-2024 AST [Catalytic activity/Vol] 16 U/L Normal 13-39 [facility] Comment on above: Performed By: #### A 1C WT eA #### [address] Automated basophil %Ordered By: Pop Marie on 01-21-2024 Basophils/100 WBC (Bld) 0.6 % Normal . [facility] Comment on above: Performed By: #### A 1C WT eA #### [address] Automated basophil countOrde red By: Pop Marie on 01-21-2024 Basophils (Bld) [#/Vol] 0.0 10*3/uL Normal 0.0-0.2 [facility] Comment on above: Result Comment: PERF ORMED BY: [place] [address] PATHOLOGIST EXTERIOR DESIGNER GONSALO BARKER M.D. Performed By: #### A 1C [facility] eA #### [address] Automated blood monocyte cou ntOrdered By: Pop Marie on 01-21-2024 Monocytes (Bld) [#/Vol] 0.5 10*3/uL Normal 0.0-0.8 [facility] Comment on above: Performed By: #### A 1C [facility] eA #### [address] Automated eosinophil %Ordere d By: Pop Marie on 01-21-2024 Eosinophils/100 WBC (Bld) 1.4 % Normal . [facility] Comment on above: Performed By: #### A 1C [facility] eA #### [address] Automated eosinophil countOr dered By: Pop Marie on 01-21-2024 Eosinophils (Bld) [#/Vol] 0.1 10*3/uL Normal 0.0-0.45 [facility] Comment on above: Performed By: #### A 1C [facility] eA #### [address] Automated erythrocytes count in urine sediment (number/area)Ordered By: Pop Marie on 01-21-2024 RBC Auto (Urine sed) [#/Area] 3-4 [HPF] 0-4 [facility] Automated leukocytes count i n urine sediment (number/area)Ordered By: Pop Marie on 01-21-2024 WBC Auto (Urine sed) [#/Area] 10-19 [HPF] 0-4 [facility] Automated monocyte %Ordered By: Pop Marie on 01-21-2024 Monocytes/100 WBC (Bld) 5.8 % Normal . [facility] Comment on above: Performed By: #### A 1C [facility] eA #### [address] Automated neutrophil %Ordere d By: Pop Marie on 01-21-2024 Neutrophils/100 WBC (Bld) 66.3 % Normal . [facility] Comment on above: Performed By: #### A 1C [facility] eA #### [address] Automated urine color determ inationOrdered By: Pop Marie on 01-21-2024 Color (U) Yellow Normal Yellow [facility] Comment on above: Order Comment: Name Collection Type:: Clean-Voided Midstream Performed By: #### C UU, ADDONUAPLUS #### [address] Automated urine hyaline cast s count (number/volume)Ordered By: Pop Marie on 01-21-2024 Hyaline casts Auto (U) [#/Vol] None seen [LPF] 0-1 [facility] Bacterial blood cultureOrder ed By: Michael Wells on 01-21-2024 Bacteria identified Cx Nom (Bld) NO GROWTH 5 DAYS [facility] Basic Metabolic Panelon 12-31 Creatinine Clr Calc Pharmacy 78.64 Normal [facility] Comment on above: Result Comment: PERF ORMED BY: [place] [address] PATHOLOGIST EXTERIOR DESIGNER GONSALO BARKER M.D. Performed By: #### A 1C [facility] eA #### [address] GFR/1.73 sq M.predicted MDRD (S/P/Bld) [Vol rate/Area] mL/min/{1.73_m2} Normal [facility] Comment on above: Performed By: #### A 1C WT eA #### [address] Bilirubin Test strip Ql (U)O rdered By: Pop Marie on 01-21-2024 Bilirubin Ql (U) Negative Negative [facility] Bilirubin.direct [Mass/volum e] in Serum or PlasmaOrdered By: Pop Marie on 01-21-2024 Bilirubin.direct [Mass/Vol] 0.10 mg/dL 0.03-0.18 [facility] Bilirubin.total [Mass/volume ] in Serum or PlasmaOrdered By: Pop Marie on 01-21-2024 Bilirubin [Mass/Vol] 0.6 mg/dL Normal 0.3-1.0 [facility] Comment on above: Performed By: #### A 1C [facility] eA #### [facility] [address] [place] [address] Blood Cultureon 01-21-2024 Bacteria identified Cx Nom (Bld) NO GROWTH 5 DAYS PERFORMED BY: [address] [place] [address] PATHOLOGIST EXTERIOR DESIGNER GONSALO BARKER M.D. Normal [facility] Comment on above: Performed By: #### E SR, CRP, CUBLD, LIPID, HSCRP #### [facility] [address] [place] [address] Performed By: #### A 1C [facility] eA #### [facility] [address] [place] [address] C reactive protein [Mass/vol ume] in Serum or PlasmaOrdered By: Michael Wells on 01-21-2024 CRP [Mass/Vol] < 0.5 mg/dL 0.0-0.5 [facility] C reactive protein [Mass/vol ume] in Serum or Plasma by High sensitivity methodOrdered By: Michael Wells on 01-21-2024 CRP High sensitivity method [Mass/Vol] 1.0 mg/L 0.0-0.9 [facility] Comment on above: Cardiovascular Risk Classification [...] 024 CRP [Mass/Vol] mg/L Normal 0.0-0.5 [facility] Comment on above: Order Comment: YANG ESPINAL Y Performed By: #### E SR, CRP, CUBLD, LIPID, HSCRP #### [address] angio neckon 01-21-2024 CT angio neck [facility] Main [place] [address] [place] [address] CT Scan Report Signed Patient: Yarelis Swenson MR#: [id number] 1450 : 1970 Acct:[id number] Age/Sex: 53 / F ADM Date: 01/21/24 Loc: ER Room: Type: PRE ER Attending Dr: Copies to: oPp Marie PA-C Ordering Provider: Pop Marie PA-C Date of Service: 01/21/24 CT/CT angio neck: acute stroke/neuro deficits ([id number]) CT/CT angio head: acute stroke/neuro deficits CT [...] Alicia Tian M.D.01/21/2024 12:04 PM Dictation Location: [place] [address] Transcribed By: [facility] 01/21/24 1204 Dictated By: Alicia Tian II, MD 01/21/24 1156 Signed By: 01/21/24 1204 Normal [facility] CT head stroke alert kenneth villalobos n 01-21-2024 CT head stroke alert wo [facility] Main [place] [address] [place] [address] CT Scan Report Signed Patient: Yarelis Swenson MR#: [id number] 1450 : 1970 Acct:[id number] Age/Sex: 53 / F ADM Date: 01/21/24 [...] Alicia Tian M.D.01/21/2024 11:56 AM Dictation Location: [place] [address] Transcribed By: [facility] 01/21/24 1156 Dictated By: Alicia Tian II, MD 01/21/24 1151 Signed By: 01/21/24 1156 Normal [facility] Calcium [Mass/volume] in Ser um or PlasmaOrdered By: Pop Marie on 01-21-2024 Calcium [Mass/Vol] 9.5 mg/dL Normal 8.6-10.3 [facility] Comment on above: Performed By: #### A 1C [facility] #### [address] Capillary blood glucose sarah urement by glucometer (mass/volume)Ordered By: ORION BOYER on 01-21-2024 Glucose [Mass/Vol] 103 mg/dL Normal [facility] Comment on above: Random Glucose Refer ence Range is dependent on time and content of last meal. Glucose of more than 200 mg/dL in a nonstressed, ambulatory subject supports the diagnosis of Diabetes Mellitus. Result Comment: [facility] Glucose Reference Range is dependent on time and content of last meal. Glucose of more than 200 mg/dL in a nonstressed, ambulatory subject supports the diagnosis of Diabetes Mellitus. Performed By: #### A 1C [facility] eA #### [facility] [address] Carbon dioxide, total [Moles /volume] in Serum or PlasmaOrdered By: Pop Marie on 01-21-2024 CO2 [Moles/Vol] 27.3 mmol/L Normal 21.0-31.0 [facility] Comment on above: Performed By: #### A 1C [facility] e[place] #### [place] [address] [place] Casts typing in urine sedime nt by light microscopyOrdered By: Pop Marie on 01-21-2024 Casts LM Nom (Urine sed) None seen [LPF] None Seen [facility] Chloride [Moles/volume] in S antohny or PlasmaOrdered By: Pop Marie on 01-21-2024 Chloride [Moles/Vol] 105 mmol/L Normal 98-107 [facility] Comment on above: Performed By: #### A 1C [facility] eA #### [address] [address] [place] Cholesterol [Mass/volume] in Serum or PlasmaOrdered By: Michael Wells on 01-21-2024 Cholesterol [Mass/Vol] 184 mg/dL Normal 140-200 [facility] Comment on above: Chol less than 200 m g/dl low riskChol 201-239 mg/dl borderline riskChol 240 mg/dl and greater high risk Order Comment: YANG Cabrera Result Comment: Chol less than 200 mg/dl low risk Chol 201-239 mg/dl borderline risk Chol 240 mg/dl and greater high risk Performed By: #### E SR, CRP, CUBLD, LIPID, HSCRP #### [place] [id number] [place] Cholesterol in LDL Calc [Mas s/Vol]Ordered By: Michael Wells on 01-21-2024 Cholesterol in LDL [Mass/Vol] 95 mg/dL 0-100 [facility] Comment on above: LDL ATP III CLASSIFI CATIONLDL less than 100 mg/dL OptimalLDL 100-129 mg/dL Near or above optimalLDL 130-159 mg/dL Borderline highLDL 160-189 mg/dL HighLDL greater than 189 mg/dL Very high Cholesterol in VLDL Calc [Ma ss/Vol]Ordered By: Michael Wells on 01-21-2024 Cholesterol in VLDL [Mass/Vol] 33 mg/dL [facility] Complete Blood Count Auto Di ffon 01-21-2024 Mean Corpuscular HGB Conc 34.0 g/dL Normal 32.0-35.0 [facility] Comment on above: Performed By: #### A 1C [facility] eA #### [facility] [address] [place] [address] [place] Monocytes/100 WBC (Bld) 18.28 % Normal 0.00-20.00 [facility] Comment on above: Performed By: #### A 1C [facility] eA #### [facility] [address] [place] [address] [place] NRBC% 0.1 /100{WBC} Normal 0-0.5 [facility] Comment on above: Performed By: #### A 1C [facility] eA #### [facility] [address] [place] [address] [place] Creatine kinase [Enzymatic a ctivity/volume] in Serum or PlasmaOrdered By: Pop Marie on 01-21-2024 CK [Catalytic activity/Vol] 60 U/L Normal 30-223 [facility] Comment on above: Performed By: #### A 1C WT eA #### [facility] [address] [place] [address] [place] Creatinine [Mass/volume] in Serum or PlasmaOrdered By: Pop Marie on 01-21-2024 Creatinine [Mass/Vol] 0.83 mg/dL Normal 0.60-1.20 [facility] Comment on above: Performed By: #### A 1C WT eA #### [address] Dipstick and Microscopicon 0 01-21-2024 Appearance (U) Cloudy Critically abnormal Clear [facility] Comment on above: Order Comment: Name Collection Type:: Clean-Voided Midstream Performed By: #### C UU, ADDONUAPLUS #### [address] Bacteria,Urine 2+ High None Seen [facility] Comment on above: Order Comment: Name Collection Type:: Clean-Voided Midstream Performed By: #### C UU, ADDONUAPLUS #### [address] Bilirubin,Urine Negative Normal Negative [facility] Comment on above: Order Comment: Name Collection Type:: Clean-Voided Midstream Performed By: #### C UU, ADDONUAPLUS #### [address] Glucose Ql (U) Normal Normal Normal [facility] Comment on above: Order Comment: Name Collection Type:: Clean-Voided Midstream Performed By: #### C UU, ADDONUAPLUS #### [address] Hyaline Casts,Urine None Seen Normal 0-1 [facility] Comment on above: Order Comment: Name Collection Type:: Clean-Voided Midstream Performed By: #### C UU, ADDONUAPLUS #### [address] Ketones Ql (U) Negative Normal Negative [facility] Comment on above: Order Comment: Name Collection Type:: Clean-Voided Midstream Performed By: #### C UU, ADDONUAPLUS #### [address] Leukocyte esterase Test strip Ql (U) 3+ High Negative [facility] Comment on above: Order Comment: Name Collection Type:: Clean-Voided Midstream Performed By: #### C UU, ADDONUAPLUS #### [address] [place] [address] [place] Nitrite,Urine Negative Normal Negative [facility] Comment on above: Order Comment: Name Collection Type:: Clean-Voided Midstream Performed By: #### C UU, ADDONUAPLUS #### [address] Occult Blood,Urine Negative Normal Negative [facility] Comment on above: Order Comment: Name Collection Type:: Clean-Voided Midstream Result Comment: PERF ORMED BY: [place] [address] PATHOLOGIST EXTERIOR DESIGNER GONSALO BARKER M.D. Performed By: #### C UU, ADDONUAPLUS #### [address] Other Casts,Urine None Seen Normal None Seen [facility] Comment on above: Order Comment: Name Collection Type:: Clean-Voided Midstream Result Comment: PERF ORMED BY: [place] [address] PATHOLOGIST EXTERIOR DESIGNER GONSALO BARKER M.D. Performed By: #### C UU, ADDONUAPLUS #### [place] [address] [place] Protein,Urine Negative Normal Negative [facility] Comment on above: Order Comment: Name Collection Type:: Clean-Voided Midstream Performed By: #### C UU, ADDONUAPLUS #### [place] [address] [place] RBC,Urine 3-4 Normal 0-4 [facility] Comment on above: Order Comment: Name Collection Type:: Clean-Voided Midstream Performed By: #### C UU, ADDONUAPLUS #### [place] [address] [place] Specificy [place],Urine 1.050 High 1.001-1.03 0 [facility] Comment on above: Order Comment: Name Collection Type:: Clean-Voided Midstream Performed By: #### C UU, ADDONUAPLUS #### [address] [place] [address] [place] Squamous Epithelial Cell,Urine Innumerable High 0-2 [facility] Comment on above: Order Comment: Name Collection Type:: Clean-Voided Midstream Performed By: #### C UU, ADDONUAPLUS #### [facility] [address] Urobilinogen,Urine Normal Normal Normal [facility] Comment on above: Order Comment: Name Collection Type:: Clean-Voided Midstream Performed By: #### C UU, ADDONUAPLUS #### [facility] [address] [place] [address] WBC,Urine 10-19 High 0-4 [facility] Comment on above: Order Comment: Name Collection Type:: Clean-Voided Midstream Performed By: #### C UU, ADDONUAPLUS #### [address] ECG 12 lead ECGon 01-21-2024 ECG 12 lead ECG [facility] Main [place] [address] [place] [address] Electrocardiograph Report Signed Patient: Yarelis Swenson MR#: [id number] 1450 : 1970 Acct:[id number] Age/Sex: 53 / F ADM Date: 01/21/24 Loc: Room: [address] [place] [address] Type: ADM IN Attending Dr: Michael Wells [...] By Saba Mandel DO 1450 Normal [facility] Erythrocyte Sedimentation Ra genny 01-21-2024 ESR (Bld) [Velocity] 13 mm/h Normal 0-29 [facility] Comment on above: Result Comment: PERF ORMED BY: [place] [address] PATHOLOGIST EXTERIOR DESIGNER GONSALO BARKER M.D. Performed By: #### E SR, CRP, CUBLD, LIPID, HSCRP #### [address] Erythrocyte distribution wid th [Ratio] by Automated countOrdered By: Pop Marie on 01-21-2024 Erythrocyte distribution width (RBC) [Ratio] 13.9 % Normal 11.9-15.3 [facility] Comment on above: Performed By: #### A 1C [facility] eA #### [address] Erythrocyte sedimentation ra te by Photometric methodOrdered By: Michael Wells on 01-21-2024 ESR Photometric method (Bld) [Velocity] 13 mm/hr 0-29 [facility] Erythrocytes [#/volume] in B lood by Automated countOrdered By: Pop Marie on 01-21-2024 RBC (Bld) [#/Vol] 4.51 10*6/uL Normal 3.60-5.00 [facility] Comment on above: Performed By: #### A 1C [facility] eA #### [address] Ethanol [Mass/volume] in Ser um or PlasmaOrdered By: Pop Marie on 01-21-2024 Ethanol [Mass/Vol] mg/dL Normal [facility] Comment on above: Performed By: #### A 1C WT eA #### [address] Ethanol [Mass/Vol] TNP [facility] Comment on above: Test not performed Ethyl Alcohol Profileon 12-31 Percent Ethanol Not performed Normal [facility] Comment on above: Result Comment: PERF ORMED BY: [facility] [address] [place] [id number] PATHOLOGIST EXTERIOR DESIGNER GONSALO BARKER M.D. Performed By: #### A 1C WT eA #### [facility] [address] [place] [address] [facility] Glucose Poct Glucometerson 0 01-21-2024 Commemt1 Glu2: Cleaned Meter Normal [facility] Comment on above: Result Comment: PERF ORMED BY: [facility] [address] [place] [address] PATHOLOGIST EXTERIOR DESIGNER GONSALO BARKER M.D. Performed By: #### A 1C WT eA #### [address] [address] [place] Glucose [Mass/volume] in Ser um or PlasmaOrdered By: Pop Marie on 01-21-2024 Glucose [Mass/Vol] 89 mg/dL Normal 70-100 [facility] Comment on above: ADA recommended refe rence rangeRandom Glucose Reference Range is dependent on time and content of last meal. Glucose of more than 200 mg/dL in a nonstressed, ambulatory subject supports the diagnosis of Diabetes Mellitus. Result Comment: Clarita om Glucose Reference Range is dependent on time and content of last meal. Glucose of more than 200 mg/dL in a nonstressed, ambulatory subject supports the diagnosis of Diabetes Mellitus. ADA recommended reference range Performed By: #### A 1C WT eA #### [facility] [address] [place] [address] [place] Glucose mean value [Mass/vol ume] in Blood Estimated from glycated hemoglobinOrdered By: Michael Wells on 01-21-2024 Average glucose Estimated from glycated hemoglobin (Bld) [Mass/Vol] 114 mg/dL [facility] Hematocrit [Volume Fraction] of Blood by Automated countOrdered By: Pop Marie on 01-21-2024 Hematocrit (Bld) [Volume fraction] 39.3 % Normal 34.0-46.4 [facility] Comment on above: Performed By: #### A 1C WT eA #### [address] Hemoglobin A1c percentageOrd ered By: Michael Wells on 01-21-2024 HbA1c (Bld) [Mass fraction] 5.6 % Normal 4.3-5.6 [facility] Comment on above: Increased risk for d iabetes: 5.7 - 6.4diabetes: >6.4glycemic control for adults with diabetes: <7.0 Result Comment: Incr eased risk for diabetes: 5.7 - 6.4 diabetes: >6.4 glycemic control for adults with diabetes: <7.0 Performed By: #### A 1C [facility] e[facility] #### [address] Hemoglobin [Mass/volume] in BloodOrdered By: Pop Marie on 01-21-2024 Hemoglobin (Bld) [Mass/Vol] 13.4 g/dL Normal 11.8-15.4 [facility] Comment on above: Performed By: #### A 1C [facility] e[facility] #### [address] Hepatic Panelon 01-21-2024 Albumin [Mass/Vol] 4.4 g/dL Normal 3.5-5.7 [facility] Comment on above: Performed By: #### A 1C [facility] e[facility] #### [address] Bilirubin,Indirect 0.5 mg/dL Normal [facility] Comment on above: Performed By: #### A 1C [facility] e[facility] #### [address] Bilirubin.indirect [Mass/Vol] 0.10 mg/dL Normal 0.03-0.18 [facility] Comment on above: Performed By: #### A 1C [facility] eA #### [address] High Sensitive CRPon 024 High Sensitive CRP 1.0 mg/L High 0.0-0.9 [facility] Comment on above: Result Comment: [...] for estimation of CVD risk. PERFORMED BY: [place] [address] PATHOLOGIST EXTERIOR DESIGNER GONSALO BARKER M.D. Performed By: #### E SR, CRP, CUBLD, LIPID, HSCRP #### [place] [id number] [facility] INR in Platelet poor plasma by Coagulation assayOrdered By: Pop Marie on 01-21-2024 INR Coag (PPP) [Relative time] 1.0 {INR} Normal [facility] Comment on above: INR Therapeutic Rang [...] - 4.5 Performed By: #### A 1C WTH eA #### [facility] [address] [place], [place] [id number] [place] ISTAT XRay CREon 01-21-2024 ISTAT GFR > 60.0 Normal [facility] Comment on above: Result Comment: PERF ORMED BY: [address] [address] PATHOLOGIST EXTERIOR DESIGNER GONSALO BARKER M.D. Performed By: #### T SH3 #### [facility] [address] Ketones Auto test strip (U) [Mass/Vol]Ordered By: Pop Marie on 01-21-2024 Ketones (U) [Mass/Vol] Negative Negative [facility] Leukocytes [#/volume] correc ekaterina for nucleated erythrocytes in Blood by Automated counOrdered By: Pop Marie on 01-21-2024 WBC corrected for nucl RBC Auto (Bld) [#/Vol] 7.8 10*3/uL 3.8-11.6 [facility] Leukocytes [#/volume] in Blo od by Automated countOrdered By: Pop Marie on 01-21-2024 WBC (Bld) [#/Vol] 7.8 10*3/uL Normal 3.8-11.6 [facility] Comment on above: Performed By: #### [facility] #### [address] Lipid Panelon 01-21-2024 LDL Cholesterol,Calculated 95 mg/dL Normal 0-100 [facility] Comment on above: Order Comment: FASTJaspal Cabrera Result Comment: LDL ATP III CLASSIFICATION LDL less than 100 mg/dL Optimal LDL 100-129 mg/dL Near or above optimal LDL 130-159 mg/dL Borderline high LDL 160-189 mg/dL High LDL greater than 189 mg/dL Very high Performed By: #### E SR, CRP, CUBLD, LIPID, HSCRP #### [address] Triglyceride w/Reflex 169 mg/dL High 0-149 [facility] Comment on above: Order Comment: FASTJaspal ESPINAL Y Result Comment: TRIG ATP III CLASSIFICATION TRIG less than 150 mg/dL Normal TRIG 150-199 mg/dL Borderline high TRIG 200-500 mg/dL High TRIG greater than 500 mg/dL Very high Standard traceable to the Center for Disease Conrtrol and Prevention (CDC) test method. Performed By: #### E SR, CRP, CUBLD, LIPID, HSCRP #### [address] VLDL CHOLESTEROL 33 mg/dL Normal [facility] Comment on above: Order Comment: FASTJaspal ESPINAL Y Performed By: #### E SR, CRP, CUBLD, LIPID, HSCRP #### [address] Lymphocytes [#/volume] in Bl ood by Automated countOrdered By: Pop Marie on 01-21-2024 Lymphocytes (Bld) [#/Vol] 2.0 10*3/uL Normal 1.00-4.8 [facility] Comment on above: Performed By: #### A [facility] eA #### [address] Lymphocytes/100 leukocytes i n Blood by Automated countOrdered By: Pop Marie on 01-21-2024 Lymphocytes/100 WBC (Bld) 25.9 % Normal . [facility] Comment on above: Performed By: #### A 1C [facility] eA #### [address] MCH [Entitic mass] by Automa ekaterina countOrdered By: Pop Marie on 01-21-2024 MCH (RBC) [Entitic mass] 29.7 pg Normal 24.7-34.3 [facility] Comment on above: Performed By: #### A 1C [facility] eA #### [address] MCHC Auto (RBC) [Mass/Vol]Or dered By: Pop Marie on 01-21-2024 MCHC (RBC) [Mass/Vol] 34.0 g/dL 32.0-35.0 [facility] MCV [Entitic volume] by Auto mated countOrdered By: oPp Marie on 01-21-2024 MCV (RBC) [Entitic vol] 87.2 fL Normal 80-100 [facility] Comment on above: Performed By: #### A 1C [facility] e[facility] #### [address] MR head/brain wo conon 01-21 MR head/brain wo con [facility] [place] [address] MRI Report Signed Patient: Yarelis Swenson MR#: [id number] 1450 : 1970 Acct:[id number] Age/Sex: 53 / F ADM Date: 01/21/24 Loc: 3T Room: [address] [place] [address] Type: ADM IN Attending Dr: Michael Wells [...] Danielito Haro M.D.01/21/2024 5:57 PM Dictation Location: [place] [address] Transcribed By: [facility] 01/21/241756 Dictated By: Danielito Haro DO 01/21/241753 Signed By: 01/21/241756 Normal [facility] Monocyte distribution width [Entitic volume] in Blood by AutomatedOrdered By: Pop Marie on 01-21-2024 Monocyte distribution width Auto (Bld) [Entitic vol] 18.28 % 0.00-20.00 [facility] Neutrophils [#/volume] in Bl ood by Automated countOrdered By: Pop Marie on 01-21-2024 Neutrophils (Bld) [#/Vol] 5.2 10*3/uL Normal 1.8-7.7 [facility] Comment on above: Performed By: #### A 1C [facility] #### [facility] [address] [place], [place] [phone] [place] Nitrite Test strip Ql (U)Ord ered By: Pop Marie on 01-21-2024 Nitrite Ql (U) Negative Negative [facility] No Panel InformationOrdered By: Pop Marie on 01-21-2024 Bedside Estimated GFR (eGFR) > 60.0 [facility] Estimated GFR (CKD-EPI) > 60.0 mL/Min [facility] Creatinine Clearance (Chem 78.64 [facility] No Panel InformationOrdered By: PROVIDER TEMP on 01-21-2024 Bedside Glucose Comment Glu2: cleaned meter [facility] Nucleated erythrocytes [Pres ence] in Blood by Automated countOrdered By: Pop Marie on 01-21-2024 Nucleated RBC Auto Ql (Bld) 0.1 /100{WBC} 0-0.5 [facility] Partial Thromboplastin Timeo n 01-21-2024 aPTT Coag (Bld) [Time] 28.8 s Normal 25.1-36.5 Th [facility] Comment on above: Result Comment: A he matocrit value greater than 55% may lead to inaccurate results in coagulation testing. Patients having hematocrit values >55% require a special collection tube for coagulation studies. Please contact the laboratory at [phone] for redraw instructions. PERFORMED BY: [place] [address] PATHOLOGIST EXTERIOR DESIGNER GONSALO BARKER M.D. Performed By: #### A 1C [facility] eA #### [facility] [address] [place], [place] [phone] [place] Platelet mean volume [Entiti c volume] in Blood by Automated countOrdered By: Pop Marie on 01-21-2024 Platelet mean volume (Bld) [Entitic vol] 6.7 fL Normal 6.3-10.7 [facility] Comment on above: Performed By: #### A 1C [facility] e[facility] #### [facility] [address] [place] [address] [place] Platelets [#/volume] in Bloo d by Automated countOrdered By: Pop Marie on 01-21-2024 Platelets (Bld) [#/Vol] 377 10*3/uL Normal 150-450 [facility] Comment on above: Performed By: #### A [facility] eA #### [facility] [address] Potassium [Moles/volume] in Serum or PlasmaOrdered By: Pop Marie on 01-21-2024 Potassium [Moles/Vol] 3.3 mmol/L Low 3.5-5.1 [facility] Comment on above: Performed By: #### A [facility] eA #### [facility] [address] [place] [id number] [facility] Protein Auto test strip (U) [Mass/Vol]Ordered By: Pop Marie on 01-21-2024 Protein (U) [Mass/Vol] Negative Negative [facility] Protein [Mass/volume] in Ser um or PlasmaOrdered By: Pop Marie on 01-21-2024 Protein [Mass/Vol] 7.3 g/dL Normal 6.4-8.9 [facility] Comment on above: Performed By: #### A [facility] e[facility] #### [place] [id number] [facility] Prothrombin time (PT)Ordered By: Pop Marie on 01-21-2024 PT Coag (PPP) [Time] 11.2 s Normal 9.0-12.9 [facility] Comment on above: A hematocrit value g reater than 55% may lead to inaccurate results in coagulation testing. Patients having hematocrit values >55% require a special collection tube for coagulation studies. Please contact the laboratory at [phone] for redraw instructions. Result Comment: A he matocrit value greater than 55% may lead to inaccurate results in coagulation testing. Patients having hematocrit values >55% require a special collection tube for coagulation studies. Please contact the laboratory at [phone] for redraw instructions. Performed By: #### A [facility] eA #### [facility] [address] [place] [id number] [facility] Serum globulin measurement b y calculation (mass/volume)Ordered By: Pop Marie on 01-21-2024 Globulin (S) [Mass/Vol] 2.9 g/dL [facility] Comment on above: Performed By: #### A 1C [facility] eA #### [facility] [address] [place] [address] Serum or plasma albumin/glob ulin mass ratioOrdered By: Pop Marie on 01-21-2024 Albumin/Globulin [Mass ratio] 1.5 {ratio} [facility] Comment on above: Performed By: #### A 1C [facility] eA #### [facility] [address] [place] [address] Serum or plasma anion gap de terminationOrdered By: Pop Marie on 01-21-2024 Anion gap [Moles/Vol] 11.0 mmol/L Normal 6.0-15.0 [facility] Comment on above: Performed By: #### A 1C [facility] eA #### [address] Serum or plasma high density lipoprotein (HDL) cholesterol measurementOrdered By: Michael Wells on 01-21-2024 Cholesterol in HDL [Mass/Vol] 55 mg/dL Normal [facility] Comment on above: HDL CHOL ATP-III CLA SSIFICATION Cardiovascular RiskHDL > or equal to 60 mg/dL LOWHDL < 40 mg/dL HIGH Order Comment: YANG Cabrera Result Comment: HDL CHOL ATP-III CLASSIFICATION Cardiovascular Risk HDL > or equal to 60 mg/dL LOW HDL < 40 mg/dL HIGH Performed By: #### E SR, CRP, CUBLD, LIPID, HSCRP #### [facility] [address] [place] [address] Serum or plasma non-glucuron idated bilirubin measurement (mass/volume)Ordered By: Pop Marie on 01-21-2024 Bilirubin.indirect [Mass/Vol] 0.5 mg/dL [facility] Serum or plasma total choles terol/high density lipoprotein (HDL) cholesterol mass ratOrdered By: Michael Wells on 01-21-2024 Cholesterol.total/Chol esterol in HDL [Mass ratio] 3.3 {ratio} Normal <5.0 [facility] Comment on above: Order Comment: YANG Cabrera Result Comment: PERF ORMED BY: [place] [address] PATHOLOGIST EXTERIOR DESIGNER GONSLAO BARKER M.D. Performed By: #### E SR, CRP, CUBLD, LIPID, HSCRP #### [address] Sodium [Moles/volume] in Ser um or PlasmaOrdered By: Pop Marie on 01-21-2024 Sodium [Moles/Vol] 140 mmol/L Normal 136-145 [facility] Comment on above: Performed By: #### A 1C [facility] eA #### [address] Specific gravity Auto test s trip (U) [Rel density]Ordered By: Pop Marie on 01-21-2024 Specific gravity (U) [Rel density] 1.050 1.001-1.03 0 [facility] Squamous epithelial cells de tection in urine sediment by light microscopyOrdered By: Pop Marie on 01-21-2024 Epithelial cells.squamous LM Ql (Urine sed) Innumerable [HPF] 0-2 [facility] Thyrotropin [Units/volume] i n Serum or PlasmaOrdered By: Michael Wells on 01-21-2024 TSH Qn 1.10 m[IU]/L Normal 0.45-5.33 [facility] Comment on above: Order Comment: Comme nt addon Result Comment: PERF ORMED BY: [place] [address] PATHOLOGIST EXTERIOR DESIGNER GONSALO BARKER M.D. Performed By: #### T SH3 #### [address] Triglyceride [Mass/volume] i n Serum or PlasmaOrdered By: Michael Wells on 01-21-2024 Triglyceride [Mass/Vol] 169 mg/dL 0-149 [facility] Comment on above: TRIG ATP III CLASSIF ICATIONTRIG less than 150 mg/dL NormalTRIG 150-199 mg/dL Borderline highTRIG 200-500 mg/dL High TRIG greater than 500 mg/dL Very highStandard traceable to the Center for Disease Conrtrol and Prevention (CDC) test method. Troponin I High Sensitivityo n 01-21-2024 Troponin I High Sensitivity 4.2 pg/mL Normal 0.0-15.0 [facility] Comment on above: Result Comment: PERF ORMED BY: [place] [address] PATHOLOGIST EXTERIOR DESIGNER GONSALO BARKER M.D. Performed By: #### A 1C [facility] eA #### [address] Troponin I.cardiac [Mass/vol ume] in Serum or Plasma by Detection limit <= 0.01 ng/Ordered By: Pop Marie on 01-21-2024 Troponin I.cardiac DL <= 0.01 ng/mL [Mass/Vol] 4.2 pg/mL 0.0-15.0 [facility] Urea nitrogen [Mass/volume] in Serum or PlasmaOrdered By: Pop Marie on 01-21-2024 Urea nitrogen [Mass/Vol] 7 mg/dL Normal 7-25 [facility] Comment on above: Performed By: #### A 1C [facility] eA #### [address] Urine Cultureon 01-21-2024 Bacteria identified Cx Nom (U) >100,000 colonies/ml mixed bacterial skin contaminants 2 Days PERFORMED BY: [place] [address] PATHOLOGIST EXTERIOR DESIGNER GONSALO BARKER M.D. Normal [facility] Comment on above: Performed By: #### C UU, ADDONUAPLUS #### [address] Urine bacteria detection by automated methodOrdered By: Pop Marie on 01-21-2024 Bacteria Auto Ql (U) 2+ None Seen [facility] Urine clarity by refractomet ry automatedOrdered By: Pop Marie on 01-21-2024 Clarity Refractometry automated (U) Cloudy Clear [facility] Urine culture routineOrdered By: Pop Marie on 01-21-2024 Bacteria identified Cx Nom (U) 2 Days [facility] Urine glucose measurement by automated test strip (mass/volume)Ordered By: Pop Marie on 01-21-2024 Glucose Auto test strip (U) [Mass/Vol] Normal mg/dL Normal [facility] Urine hemoglobin detection b y automated test stripOrdered By: Pop Marie on 01-21-2024 Hemoglobin Auto test strip Ql (U) Negative Negative [facility] Urine leukocyte esterase det ection by automated test stripOrdered By: Pop Marie on 01-21-2024 Leukocyte esterase Auto test strip Ql (U) 3+ Negative [facility] Urine pH measurement by auto mated test stripOrdered By: Pop Marie on 01-21-2024 pH (U) 7.5 [pH] Normal 5.0-9.0 [facility] Comment on above: Order Comment: Name Collection Type:: Clean-Voided Midstream Performed By: #### C UU, ADDONUAPLUS #### [facility] [address] [place] [address] Urobilinogen Auto test strip (U) [Mass/Vol]Ordered By: Pop Marie on 01-21-2024 Urobilinogen (U) [Mass/Vol] Normal mg/dL Normal [facility] Whole blood creatinine measu rementOrdered By: Pop Marie on 01-21-2024 Creatinine [Mass/Vol] 0.9 mg/dL Normal 0.6-1.3 [facility] Comment on above: ER/ESD physician is notified/shown all ISTAT results.Critical values may be confirmed by laboratory testing ifdeemed necessary by ER attending doctor. Result Comment: ER/E SD physician is notified/shown all ISTAT results. Critical values may be confirmed by laboratory testing if deemed necessary by ER attending doctor. Performed By: #### T SH3 #### [facility] [address] [place] [address] XR chest 1V portableon 01-21 XR chest 1V portable [facility] Main Fisher [address] [place], [place] [id number] XRay Report Signed Patient: Yarelis Swenson MR#: [id number] : [id number] Acct:[id number] Age/Sex: 53 / F ADM Date: 01/21/24 Loc: ER Room: Type: [facility] ER Attending Dr: Copies to: Pop [...] Danielito Haro M.D.01/21/2024 12:19 PM Dictation Location: [place] [address] Transcribed By: [facility] 01/21/24 1219 Dictated By: Danielito Haro DO 01/21/24 1219 Signed By: 01/21/24 1219 Normal [facility] Serum or plasma trough vanco mycin levelOrdered By: Duke Morris on 07-25-2023 Vancomycin trough [Mass/Vol] 11.0 ug/mL 10.0-20.0 [facility] Comment on above: Last dose: - Physician Orderon 07-23-2023 Physician Order [id number]:1 [id number] [facility] Vanco Troughon 07-23-2023 VANCOMYCIN 7 microgram/mL Low 10-20 [facility] Comment on above: Performed By: #### 2 [id number] #### [facility] [address] [place] [id number] PROF CHEM 8 (BAS METB)on Anion gap [Moles/Vol] 14.5 mmol/L Normal [facility] Comment on above: Performed By: #### B MP #### [facility] [address] [place] [address] [address] Dimitri Veliz Calcium [Mass/Vol] 9.0 mg/dL Normal 8.5-10.1 [facility] Comment on above: Performed By: #### B MP #### [facility] [address] [place] [address] [address] Dimitri Veliz Chloride [Moles/Vol] 101 mmol/L Normal 98-107 [facility] Comment on above: Performed By: #### B MP #### [facility] [address] [place] [address] [address] Dimitri Veliz CO2 [Moles/Vol] 31.4 mmol/L Normal 21.0-32.0 [facility] Comment on above: Performed By: #### B MP #### [facility] [address] [address] [address] Dimitri Veliz Creatinine [Mass/Vol] 0.82 mg/dL Normal 0.55-1.02 [facility] Comment on above: Performed By: #### B MP #### [facility] [address] [place] [address] Dr. Dimitri Veliz EGFR-AF BURKINAN >60 Normal >=60 [facility] Comment on above: Performed By: #### B MP #### [facility] [address] [place] [address] Dr. Dimitri Veliz EGFR-NON AF BURKINAN >60 Normal >=60 [facility] Comment on above: Performed By: #### B MP #### [facility] [address] [place] [address] Dr. Dimitri Veliz Glucose [Mass/Vol] 96 mg/dL Normal 74-106 [facility] Comment on above: Performed By: #### B MP #### [facility] [address] [place] [address] [address] Dimitri Veliz Potassium [Moles/Vol] 3.9 mmol/L Normal 3.5-5.1 [facility] Comment on above: Performed By: #### B MP #### [facility] [address] [place] [address] Dr. Dimitri Veliz Sodium [Moles/Vol] 143 mmol/L Normal 136-145 [facility] Comment on above: Performed By: #### B MP #### [facility] [address] [place] [address] Dr. Dimitri Veliz Urea nitrogen [Mass/Vol] 10.0 mg/dL Normal 7.0-18.0 [facility] Comment on above: Performed By: #### B MP #### [facility] [address] [place], [place] [address] Dr. Dimitri Veliz Urea nitrogen/Creatinine [Mass ratio] 12.2 mg/mg Normal [facility] Comment on above: Performed By: #### B MP #### [facility] [address] [place], [place] [address] Dr. Dimitri Veliz MRI ANKLE LT WO [...] JOEY MENEZES Date: 2023-02-17 07:43 Normal [facility] POINT OF CARE GLUCOSEon 11-29 Glucose [Mass/Vol] 99 mg/dL Normal 74-106 [facility] Comment on above: Performed By: #### P OCGLUC #### [facility] [address] [place], [place] [address] Dr. Dimitri Veliz Glucose [Mass/Vol] 96 mg/dL Normal 74-106 [facility] Comment on above: Performed By: #### P OCGLUC ####[facility] [address] [place], [place] [address]YqDr. Dimitri Veliz [facility]29 SARS-CoV-2 (COVID-19) RNA TJ+probe Ql (Unsp spec) Not detected Normal NOT DETECTED [facility] Comment on above: Result Comment: This test is not yet approved or cleared by the [place] FDA. When there are no FDA-approved or cleared tests available, and other criteria are met, FDA can make tests available under an emergency access mechanism called an Emergency Use Authorization (EUA). The EUA for this test is supported by the [place] of Health and Human Service's (HHS's) declaration [...] consistent with SARS-CoV-2. Performed By: #### C VDTB #### [facility] [address] [place] [address] Dr. Dimitri Veliz PROF CHEM 8 (BAS METB)on Anion gap [Moles/Vol] 14.8 mmol/L Normal [facility] Comment on above: Performed By: #### B MP #### [facility] [address] [place] [address] Dr. Dimitri Veliz Calcium [Mass/Vol] 9.4 mg/dL Normal 8.5-10.1 [facility] Comment on above: Performed By: #### B MP #### [facility] [address] [place] [address] Dr. Dimitri Veliz Chloride [Moles/Vol] 100 mmol/L Normal 98-107 [facility] Comment on above: Performed By: #### B MP #### [facility] [address] [place] [address] Dr. Dimitri Veliz CO2 [Moles/Vol] 25.1 mmol/L Normal 21.0-32.0 [facility] Comment on above: Performed By: #### B MP #### [facility] [address] [place] [address] Dr. Dimitri Veliz Creatinine [Mass/Vol] 0.95 mg/dL Normal 0.55-1.02 [facility] Comment on above: Performed By: #### B MP #### [facility] [address] [place] [address] [address] Dimitri Veliz EGFR-AF BURKINAN >60 Normal >=60 [facility] Comment on above: Performed By: #### B MP #### [facility] [address] [place] [address] [address] Dimitri Veliz EGFR-NON AF BURKINAN >60 Normal >=60 [facility] Comment on above: Performed By: #### B MP #### [facility] [address] [place] [address] [address] Dimitri Veliz Glucose [Mass/Vol] 82 mg/dL Normal 74-106 [facility] Comment on above: Performed By: #### B MP #### [facility] [address] [place] [address] [address] Dimitri Veliz Potassium [Moles/Vol] 3.9 mmol/L Normal 3.5-5.1 [facility] Comment on above: Performed By: #### B MP #### [facility] [address] [place] [address] [address] Dimitri Veliz Sodium [Moles/Vol] 136 mmol/L Normal 136-145 [facility] Comment on above: Performed By: #### B MP #### [facility] [address] [place] [address] [address] Dimitri Veliz Urea nitrogen [Mass/Vol] 12.0 mg/dL Normal 7.0-18.0 [facility] Comment on above: Performed By: #### B MP #### [facility] [address] [place] [address] [address] Dimitri Veliz Urea nitrogen/Creatinine [Mass ratio] 12.6 mg/mg Normal [facility] Comment on above: Performed By: #### B MP #### [facility] [address] [place] [address] Dr. Dimitri Veliz XR ANKLE LT MIN 3 Von 2022 XR ANKLE LT MIN 3 V EXAM: XR ANKLE LT [place] N 3 V HISTORY: Arthralgia of the [...] by: SUNSHINE DUBON Date: 2022-12-09 05:04 Normal [facility] US Carotid, Bilateralon 09-30 US Carotid, Bilateral [...] by Gabe Hayes on 10/19/2022 1050 Normal [facility]usher BNPon 10-06-2022 Natriuretic peptide B (Bld) [Mass/Vol] 19.0 pg/mL Normal <=900.0 [facility] Comment on above: Performed By: #### B SENIOR ORACLE DATABASE ADMINISTRATOR, CMADM, CMP ####[facility] [address] [place] [id number]. Dimitri Veliz CARDIAC ALICIA ADMITon 022 CK [Catalytic activity/Vol] 94 U/L Normal 26-192 [facility] Comment on above: Performed By: #### B SENIOR ORACLE DATABASE ADMINISTRATOR, CMADM, CMP ####[facility] [address] [place], [place] [address]Vw. Dimitri Veliz CK.MB [Mass/Vol] 2.43 ng/mL Normal <=3.60 [facility] Comment on above: Performed By: #### B SENIOR ORACLE DATABASE ADMINISTRATOR, CMADM, CMP ####[facility] [address] [place] [id number]. Dimitri Veliz HSTROP 11.2 pg/mL Normal 4.0-51.3 [facility] Comment on above: Result Comment: CUT- OFF POINTS HAVE BEEN ESTABLISHED BASED ON THE FOURTH UNIVERSAL DEFINITIONS OF MYOCARDIAL INFARCTION. THE UPPER REFERENCE LIMIT (URL) OF TROPONIN, DEFINED THE 99TH PERCENTILE OF cTnI DISTRIBUTION IN A REFERENCE POPULATION, HAS BEEN CONFIRMED THE DECISION THRESHOLD FOR [place] DIAGNOSIS. Performed By: #### B SENIOR ORACLE DATABASE ADMINISTRATOR, CMADM, CMP ####[facility] [address] [place] [address]Dr. Dimitri Veliz KAY 60 ng/mL Normal 9-82 [facility] Comment on above: Performed By: #### B SENIOR ORACLE DATABASE ADMINISTRATOR, CMADM, CMP ####[facility] [address] [place] [address]Dr. Dimitri Veliz CBC AUTO DIFFon 10-06-2022 BASO # 0.1 103/ul Normal 0.0-0.1 [facility] Comment on above: Performed By: #### C BC ####[facility] [address] [place], [place] [address]Dr. Dimitri Veliz Basophils/100 WBC (Bld) 1.1 % Normal 0.2-2.0 [facility] Comment on above: Performed By: #### C BC ####[facility] [address] [place], [place] [address]Dr. Dimitri Veliz EO # 0.3 103/ul Normal 0.0-0.7 [facility] Comment on above: Performed By: #### C BC ####[facility] [address] [place], [place] [address]Dr. Dimitri Veliz Eosinophils/100 WBC (Bld) 3.3 % Normal 0.9-7.0 [facility] Comment on above: Performed By: #### C BC ####[facility] [address] [place], [place] [address]Dr. Dimitri Veliz Erythrocyte distribution width (RBC) [Ratio] 13.0 % Normal 11.0-15.0 [facility] Comment on above: Performed By: #### C BC ####[facility] [address] [place], [place] [address]Dr. Dimitri Veliz Hematocrit (Bld) [Volume fraction] 38.1 % Normal 36.0-48.0 [facility] Comment on above: Performed By: #### C BC ####[facility] [address] [place] [address]Dr. Dimitri Veliz Hemoglobin (Bld) [Mass/Vol] 12.8 g/dL Normal 12.0-16.0 [facility] Comment on above: Performed By: #### C BC ####[facility] [address] [place] [address]Dr. Dimitri Veliz IG # 0.03 10e3/ul Normal 0.00-0.03 [facility] Comment on above: Performed By: #### C BC ####[facility] [address] [place] [address]Dr. Dimitri Veliz IG % 0.4 % Normal 0.0-0.5 [facility] Comment on above: Performed By: #### C BC ####[facility] [address] [place], [place] [address]Dr. Dimitri Veliz LYMPH # 2.2 103/ul Normal 1.2-3.8 [facility] Comment on above: Performed By: #### C BC ####[facility] [address] [place], [place] [address]Dr. Dimitri Veliz Lymphocytes/100 WBC (Bld) 25.7 % Normal 20.5-60.0 [facility] Comment on above: Performed By: #### C BC ####[facility] [address] [place] [address]Dr. Dianajayant Veliz MANUAL DIFF REQ NO Normal [facility] Comment on above: Performed By: #### C BC ####[facility] [address] [place], [place] [address]Dr. Dimitri Veliz MCH (RBC) [Entitic mass] 30.1 pg Normal 26.7-34.0 [facility] Comment on above: Performed By: #### C BC ####[facility] [address] [place], [place] [address]Dr. Dimitri Veliz MCHC (RBC) [Mass/Vol] 33.6 g/dL Normal 29.9-35.2 [facility] Comment on above: Performed By: #### C BC ####[facility] [address] [place] [id number]. Dimitri Veliz MCV (RBC) [Entitic vol] 89.6 fL Normal 81.0-99.0 [facility] Comment on above: Performed By: #### C BC ####[facility] [address] [place] [id number]. Dimitri Veliz MONO # 0.7 103/ul Normal 0.3-0.8 [facility] Comment on above: Performed By: #### C BC ####[facility] [address] [place] [address]Dr. Dimitri Jose Alfredo Monocytes/100 WBC (Bld) 7.9 % Normal 1.7-12.0 [facility] Comment on above: Performed By: #### C BC ####[facility] [address] [place], [place] [address]Dr. Dimitri Veliz NEUT # 5.2 103/ul Normal 1.4-6.5 [facility] Comment on above: Performed By: #### C BC ####[facility] [address] [place], [place] [address]Dr. Dianajayant Veliz Neutrophils/100 WBC (Bld) 61.6 % Normal 43.0-75.0 [facility] Comment on above: Performed By: #### C BC ####[facility] [address] [place], [place] [address]Dr. Dimitri Jose Alfredo Platelet mean volume (Bld) [Entitic vol] 8.9 fL Critically low 9.5-13.5 [facility] Comment on above: Performed By: #### C BC ####[facility] [address] [place] [id number]. Dimitri Jose Alfredo PLT 429 103/ul Normal 150-450 [facility] Comment on above: Performed By: #### C BC ####[facility] [address] [place] [id number]. Dimitri Veliz RBC 4.25 106/ul Normal 4.20-5.40 [facility] Comment on above: Performed By: #### C BC ####[facility] [address] [place], [place] [address]Dr. Dimitri Veliz WBC 8.5 103/ul Normal 4.0-11.0 [facility] Comment on above: Performed By: #### C BC ####[facility] [address] [place], [place] [address]Dr. Dimitri Veliz ER URINE PROFILEon 2 Bilirubin Ql (U) Negative Normal NEGATIVE [facility] Comment on above: Performed By: #### U MICRO, ERUR ####[facility] [address] [place], [place] [address]Dr. Dimitri Veliz Clarity (U) CLEAR Normal CLEAR [facility] Comment on above: Performed By: #### U MICRO, ERUR ####[facility] [address] [place], [place] [address]Dr. Dimitri Veliz Color (U) YELLOW Normal YELLOW [facility] Comment on above: Performed By: #### U MICRO, ERUR ####[facility] [address] [place], [place] [address]Dr. Dimitri Veliz ERUAHD A micrscopic examina tion will be performed if indicated. Normal [facility] Comment on above: Performed By: #### U MICRO, ERUR ####[facility] [address] [place], [place] [address]Dr. Dimitri Veliz Glucose Ql (U) Negative Normal NEGATIVE [facility] Comment on above: Performed By: #### U MICRO, ERUR ####[facility] [address] [place], [place] [address]Dr. Dimitri Veliz Hemoglobin Ql (U) TRACE-INTACT Abnormal NEGATIVE [facility] Comment on above: Performed By: #### U MICRO, ERUR ####[facility] [address] [place], [place] [address]Dr. Dimitri Veliz Ketones Ql (U) Negative Normal NEGATIVE [facility] Comment on above: Performed By: #### U MICRO, ERUR ####[facility] [address] [place], [place] [address]Dr. Dimitri Veliz LEUKOCYTES Negative Normal NEGATIVE [facility] Comment on above: Performed By: #### U MICRO, ERUR ####[facility] [address] [place] [address]Dr. Dimitri Veliz Nitrite Ql (U) Negative Normal NEGATIVE [facility] Comment on above: Performed By: #### U MICRO, ERUR ####[facility] [address] [place] [id number]. Dimitri Veliz pH (U) 6.0 [pH] Normal 5-9 [facility] Comment on above: Performed By: #### U MICRO, ERUR ####[facility] [address] [place] [address]Dr. Dimitri Veliz SPEC GRAVITY 1.025 Normal 1.005-<=1. 025 [facility] Comment on above: Performed By: #### U MICRO, ERUR ####[facility] [address] [place] [address]Dr. Dimitri Veliz UA PROTEIN Negative Normal NEGATIVE/ TRACE [facility] Comment on above: Performed By: #### U MICRO, ERUR ####[facility] [address] [place], [place] [address]Dr. Dimitri Veliz UR MICRO IND INDICATED Normal [facility] Comment on above: Performed By: #### U MICRO, ERUR ####[facility] [address] [place] [address]Dr. Dimitri Veliz Urobilinogen Qn (U) 0.2 {Padmini'U}/dL Normal 0.2 - 1. 0 [facility] Comment on above: Performed By: #### U MICRO, ERUR ####[facility] Comtcvynvd[address] [place], [place] [address]Dr. Dimitri Veliz PROF 14(COMP METB)on 022 Albumin [Mass/Vol] 4.0 g/dL Normal 3.4-5.0 [facility] Comment on above: Performed By: #### B SENIOR ORACLE DATABASE ADMINISTRATOR, CMADM, CMP ####[facility] U[address]cl[address] [place], [place] [address]Dr. Dimitri Veliz Albumin/Globulin [Mass ratio] 1.0 {ratio} Normal [facility] Comment on above: Performed By: #### B SENIOR ORACLE DATABASE ADMINISTRATOR, CMADM, CMP ####[facility] [address] [place] [address]Dr. Dimitri Veliz ALP [Catalytic activity/Vol] 91 U/L Normal 46-116 [facility] Comment on above: Performed By: #### B SENIOR ORACLE DATABASE ADMINISTRATOR, CMADM, CMP ####[facility] [address] [place] [address]Dr. Dianajayant Veliz ALT [Catalytic activity/Vol] 34 U/L Normal 14-59 [facility] Comment on above: Performed By: #### B SENIOR ORACLE DATABASE ADMINISTRATOR, CMADM, CMP ####[facility] Nyvfqvitjc[address] Dimitri Veliz Anion gap [Moles/Vol] 8.6 mmol/L Normal [facility] Comment on above: Performed By: #### B SENIOR ORACLE DATABASE ADMINISTRATOR, CMADM, CMP ####[facility] Ueawtnkmwe[address] [place], [place] [address]Dr. Dimitri Veliz AST [Catalytic activity/Vol] 18 U/L Normal 15-37 [facility] Comment on above: Performed By: #### B SENIOR ORACLE DATABASE ADMINISTRATOR, CMADM, CMP ####[facility] [address] [place] [address]. Dimitri Veliz Bilirubin [Mass/Vol] 0.5 mg/dL Normal 0.2-1.0 [facility] Comment on above: Performed By: #### B SENIOR ORACLE DATABASE ADMINISTRATOR, CMADM, CMP ####[facility] Zyqpvofmyx[address] [place] [address]Dr. Dimitri Veliz Calcium [Mass/Vol] 9.5 mg/dL Normal 8.5-10.1 [facility] Comment on above: Performed By: #### B SENIOR ORACLE DATABASE ADMINISTRATOR, CMADM, CMP ####[facility] Xquhsxknob[address] [place] [address]Dr. Dimitri Veliz Chloride [Moles/Vol] 101 mmol/L Normal 98-107 [facility] Comment on above: Performed By: #### B SENIOR ORACLE DATABASE ADMINISTRATOR, CMADM, CMP ####[facility] [address]xekefvr[address] [place] [id number]. Dimitri Veliz CO2 [Moles/Vol] 29.1 mmol/L Normal 21.0-32.0 [facility] Comment on above: Performed By: #### B SENIOR ORACLE DATABASE ADMINISTRATOR, CMADM, CMP ####[facility] Erhjuirwgk[address] [place] [address]Dr. Dimitri Veliz Creatinine [Mass/Vol] 0.86 mg/dL Normal 0.55-1.02 [facility] Comment on above: Performed By: #### B SENIOR ORACLE DATABASE ADMINISTRATOR, CMADM, CMP ####[facility] Ol[address]tdlmx[address] [place] [address]Dr. Dimtiri Veliz EGFR-AF BURKINAN >60 Normal >=60 [facility] Comment on above: Performed By: #### B SENIOR ORACLE DATABASE ADMINISTRATOR, CMADM, CMP ####[facility] Azdthusmnh[address] [place] [address]Dr. Dimitri Veliz EGFR-NON AF BURKINAN >60 Normal >=60 [facility] Comment on above: Performed By: #### B SENIOR ORACLE DATABASE ADMINISTRATOR, CMADM, CMP ####[facility] [address]ae[address]ptxu364[address] [place] [address]Dr. Dimitri Jose Alfredo Globulin (S) [Mass/Vol] 4.0 g/dL Normal [facility] Comment on above: Performed By: #### B SENIOR ORACLE DATABASE ADMINISTRATOR, CMADM, CMP ####[facility] Vp[address]vyjtbt[address] [place] [address]Dr. Dimitri Veliz Glucose [Mass/Vol] 110 mg/dL Critically high 74-106 [facility] Comment on above: Performed By: #### B SENIOR ORACLE DATABASE ADMINISTRATOR, CMADM, CMP ####[facility] Tdkuxmdune38[address] [place] [address]Dr. Diimtri Veliz Potassium [Moles/Vol] 3.7 mmol/L Normal 3.5-5.1 [facility] Comment on above: Performed By: #### B SENIOR ORACLE DATABASE ADMINISTRATOR, CMADM, CMP ####[facility] W[address]iecwwy[address] [place] [address]Dr. Dimitri Veliz Protein [Mass/Vol] 8.0 g/dL Normal 6.4-8.2 [facility] Comment on above: Performed By: #### B SENIOR ORACLE DATABASE ADMINISTRATOR, CMADM, CMP ####[facility] Lkmqohocvq34[address] [place] [address]Dr. Dimitri Veliz Sodium [Moles/Vol] 135 mmol/L Critically low 136-145 [facility] Comment on above: Performed By: #### B SENIOR ORACLE DATABASE ADMINISTRATOR, CMADM, CMP ####[facility] Shidualeqn9411 [place] [address]Dr. Dimitri Veliz Urea nitrogen [Mass/Vol] 14.0 mg/dL Normal 7.0-18.0 [facility] Comment on above: Performed By: #### B SENIOR ORACLE DATABASE ADMINISTRATOR, CMADM, CMP ####[facility] Utbsc[address] [place], [place] [address]Dr. Dimitri Veliz Urea nitrogen/Creatinine [Mass ratio] 16.3 mg/mg Normal [facility] Comment on above: Performed By: #### B SENIOR ORACLE DATABASE ADMINISTRATOR, CMADM, CMP ####[facility] Tyorbgovqx[address] [place], [place] [address]Dr. Dimitri Veliz URINE MICROSCOPIC ONLYon BACTERIA NONE SEEN Normal NONE SEEN [facility] Comment on above: Performed By: #### U MICRO, ERUR ####[facility] Pheucre[address] [place], [place] [address]Dr. Dimitri Veliz Bacteria identified Cx Nom (U) NOT INDICATED Normal [facility] Comment on above: Performed By: #### U MICRO, ERUR ####[facility] Nfbjvpttqv[address] [place], [place] [address]Dr. Dimitri Veliz CAST NONE SEEN Normal NONE SEEN [facility] Comment on above: Performed By: #### U MICRO, ERUR ####[facility] Zyju[address] [place], [place] [address]Dr. Dimitri Veliz Crystals LM Nom (Urine sed) NONE SEEN Normal NONE SEEN [facility] Comment on above: Performed By: #### U MICRO, ERUR ####[facility] Dgzghbbzla[address] [place], [place] [address]Dr. Dimitri Veliz Epithelial cells LM Ql (Urine sed) MODERATE Abnormal NONE SEEN /RARE [facility] Comment on above: Performed By: #### U MICRO, ERUR ####[facility] X[address]ys[address]lsvq13[address] [place] [id number]. Dianalan Veliz MUCOUS NONE SEEN Normal NONE SEEN [facility] Comment on above: Performed By: #### U MICRO, ERUR ####[facility] Vpwvgwwwgq3221 [place] [id number]. Dimitri Veliz RBC 2-5 Abnormal 0-2 [facility] Comment on above: Performed By: #### U MICRO, ERUR ####[facility] Lmeixpgbit3183 [place] [id number]. Yijayant Veliz WBC NONE SEEN Normal NONE SEEN [facility] Comment on above: Performed By: #### U MICRO, ERUR ####[facility] Kw[address]zucf[address] [place] [address]Dr. Dimitri Veliz XR CHEST 2 Von 10-06-2022 [...] SHELBY ECHAVARRIA Date: 2022-10-06 13:59 Normal [facility] CT ABD/PELVIS WO CONon 08-06 [...] WILLIAM CLAUDIO Date: 2022-08-06 08:52 Normal [facility] ER URINE PROFILEon 2 Bilirubin Ql (U) Negative Normal NEGATIVE [facility] Comment on above: Performed By: #### MONSTER SHEPARD #### [facility] [address] [place] [address] Dr. Dimitri Veliz Clarity (U) CLEAR Normal CLEAR [facility] Comment on above: Performed By: #### NATASHA SHEPARDRO #### [facility] [address] [place] [address] Dr. Dimitri Veliz Color (U) LT. YELLOW Normal YELLOW [facility] Comment on above: Performed By: #### NATASHA SHEPARDRO #### [facility] [address] [place] [address] Dr. Dimitri Veliz ERUAHD A micrscopic examina tion will be performed if indicated. Normal [facility] Comment on above: Performed By: #### NATASHA SHEPARDRO #### [facility] [address] [place] [address] Dr. Dimitri Veliz Glucose Ql (U) Negative Normal NEGATIVE The [facility] Comment on above: Performed By: #### NATASHA SHEPARDRO #### [facility] [address] [place] [address] Dr. Dimitri Veliz Hemoglobin Ql (U) SMALL Abnormal NEGATIVE The [facility] Comment on above: Performed By: #### NATASHA SHEPARDRO #### [facility] [address] [place] [address] Dr. Dimitri Veliz Ketones Ql (U) Negative Normal NEGATIVE The [facility] Comment on above: Performed By: #### Kevin MIMS UMICRO #### [facility] [address] [place] [address] Dr. Dimitri Veliz LEUKOCYTES Negative Normal NEGATIVE [facility] Comment on above: Performed By: #### Kevin MIMS, UMICRO #### [facility] [address] [place] [address] Dr. Dimitri Veliz Nitrite Ql (U) Negative Normal NEGATIVE [facility] Comment on above: Performed By: #### Kevin MIMS UMICRO #### [facility] [address] [place] [address] Dr. Dimitri Veliz pH (U) 6.0 [pH] Normal 5-9 [facility] Comment on above: Performed By: #### Kevin MIMS UMICRO #### [facility] [address] [place] [address] Dr. Dimitri Veliz SPEC GRAVITY 1.025 Normal 1.005-<=1. 025 [facility] Comment on above: Performed By: #### Kevin MIMS UMICRO #### [facility] [address] [place] [address] Dr. Dimitri Veliz UA PROTEIN Negative Normal NEGATIVE/ TRACE [facility] Comment on above: Performed By: #### Kevin MIMS UMICRO #### [facility] [address] [place] [address] Dr. Dimitri Veliz UR MICRO IND INDICATED Normal [facility] Comment on above: Performed By: #### Kevin MIMS UMICRO #### [facility] [address] [place] [address] Dr. Dimitri Veliz Urobilinogen Qn (U) 0.2 {Padmini'U}/dL Normal 0.2 - 1. 0 [facility] Comment on above: Performed By: #### Kevin MIMS, UMICRO #### [facility] [address] [place] [address] Dr. Dimitri Veliz URINE MICROSCOPIC ONLYon BACTERIA TRACE Abnormal NONE SEEN [facility] Comment on above: Performed By: #### Kevin MIMS UMICRO #### [facility] [address] [place] [address] Dr. Dimitri Veliz Bacteria identified Cx Nom (U) NOT INDICATED Normal [facility] Comment on above: Performed By: #### Kevin MIMS UMICRO #### [facility] [address] [place] [address] Dr. Dimitri Veliz CAST NONE SEEN Normal NONE SEEN [facility] Comment on above: Performed By: #### Kevin MIMS UMICRO #### [facility] [address] [place] [address] Dr. Dimitri Veliz Crystals LM Nom (Urine sed) NONE SEEN Normal NONE SEEN [facility] Comment on above: Performed By: #### Kevin MIMS UMICRO #### [facility] [address] [place] [address] Dr. Dimitri Veliz Epithelial cells LM Ql (Urine sed) MODERATE Abnormal NONE SEEN /RARE [facility] Comment on above: Performed By: #### Kevin MIMS UMICRO #### [facility] [address] [place] [address] Dr. Dimitri Veliz MUCOUS NONE SEEN Normal NONE SEEN [facility] Comment on above: Performed By: #### Kevin MIMS UMICRO #### [facility] [address] [place] [address] Dr. Dimitri Veliz RBC 2-5 Abnormal 0-2 [facility] Comment on above: Performed By: #### MACK SHEPARDICRO #### [facility] [address] [place] [address] Dr. Dimitri Veliz WBC 0-2 Abnormal NONE SEEN [facility] Comment on above: Performed By: #### Kevin MIMS UMICRO #### [facility] [address] [place] [address] Dr. Dimitri Veliz XR LSPINE 2_3 VIEWSon [...] by: JANNETTE QUINN Date: 2022-08-06 08:26 Normal [facility] XR knee RT 4V*on 07-22-2022 XR knee RT 4V* [facility] [employer] Other XR knee RT 4V* [facility] [employer] Other XR knee RT 4V* [address] [place] [address] [employer] Other XR knee RT 4V* [place] [address] No rt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 (CMS/HCC); Generalized anxiety disorder (CMS/HCC); Restless legs; Idiopathic peripheral neuropathy; Encounter for screening mammogram for malignant neoplasm of breast Start: 01-02-2025 End: 01-02-2025 Patient encounter procedure Rhiannon Zarate SENIOR ORACLE DATABASE ADMINISTRATOR Work Phone: [facility] Work Phone: Start: 01-02-2025 End: 01-02-2025 ambulatory JULIO C JARRETT Not Available Start: 12-21-2024 End: 12-21-2024 Office outpatient visit 40 minutes Roverto M Gillian-Nossek ZIPPER JOINER-EVENT TECHNICIAN Work Phone: [facility] Comment on above: Hx of high risk medi cation treatment Start: 12-21-2024 End: 12-21-2024 ambulatory ROVERTO Jake GILLIAN-NOSSEK Not Available Start: 12-21-2024 End: 12-21-2024 Bamboo flowsheet Roverto Joseph Gillian-Nossek ZIPPER JOINER-EVENT TECHNICIAN Work Phone: [facility] Start: 12-21-2024 End: 12-21-2024 Bamboo flowsheet Roverto M Gillian-Nossek ZIPPER JOINER-EVENT TECHNICIAN Work Phone: [facility] Start: 12-13-2024 End: 12-13-2024 Bamboo flowsheet Roverto M Gillian-Nossek ZIPPER JOINER-EVENT TECHNICIAN Work Phone: [facility] Start: 12-13-2024 End: 12-13-2024 Bamboo flowsheet Roverto Jake Gillian-Nossek ZIPPER JOINER-EVENT TECHNICIAN Work Phone: [facility] Start: 12-13-2024 End: 12-13-2024 Office outpatient visit 25 minutes Roverto Jake Gillian-Nossek ZIPPER JOINER-EVENT TECHNICIAN Work Phone: [facility] Comment on above: Bipolar affective di sorder, currently depressed, moderate (CMS/HCC) Start: 12-13-2024 End: 12-13-2024 ambulatory ROVERTO CARRIZALES Not Available Start: 12-06-2024 End: 12-06-2024 ambulatory Julio C Jarrett MD Work Phone: [facility] Work Phone: Start: 12-06-2024 End: 12-06-2024 Patient encounter procedure Julio C Jarrett MD Work Phone: [facility] Work Phone: Start: 12-06-2024 End: 12-06-2024 Patient encounter procedure Julio C Jarrett MD Work Phone: [facility] [place] [facility] Start: 12-06-2024 End: 12-06-2024 ambulatory Julio C Jarrett MD Work Phone: [facility] Work Phone: Start: 11-17-2024 End: 11-17-2024 Office outpatient visit 25 minutes Rhiannon Zarate SENIOR ORACLE DATABASE ADMINISTRATOR Work Phone: [facility] Comment on above: Prediabetes (Primary Dx); [...] procedure MD Julio C Jarrett Work Phone: [facility] [facility] Start: 09-29-2024 End: 09-29-2024 ambulatory MD Julio C Jarrett Work Phone: [facility] Work Phone: Start: 09-15-2024 End: 09-15-2024 Office outpatient visit 25 minutes Jacquieestefania Yip SENIOR ORACLE DATABASE ADMINISTRATOR Work Phone: [facility] Comment on above: Burning mouth syndro me (Primary Dx); Tongue pain; Restless legs; Idiopathic peripheral neuropathy; Prediabetes; BMI 35.0-35.9,adult Start: 09-15-2024 End: 09-15-2024 ambulatory JULIO C JARRETT Not Available Start: 09-12-2024 End: 09-12-2024 Bamboo flowsheet Roverto Joseph Gillian-Nossek ZIPPER JOINER-EVENT TECHNICIAN Work Phone: [facility] Start: 09-12-2024 End: 09-12-2024 Bamboo flowsheet Roverto Joseph Gillian-Nossek ZIPPER JOINER-EVENT TECHNICIAN Work Phone: [facility] Start: 09-12-2024 End: 09-12-2024 Office outpatient visit 15 minutes Roverto Joseph Gillian-Nossek ZIPPER JOINER-EVENT TECHNICIAN Work Phone: [facility] Comment on above: Bipolar affective di sorder, currently depressed, moderate (CMS/HCC); Generalized anxiety disorder (CMS/HCC) Start: 09-12-2024 End: 09-12-2024 ambulatory ROVERTO Joseph GILLIAN-ADENIKESERichi Not Available Start: 09-11-2024 End: 09-11-2024 ambulatory MD Julio C Jarrett Work Phone: [facility] Work Phone: Start: 09-11-2024 End: 09-11-2024 Discharged Recurring MD Julio C Jarrett Work Phone: [facility] [place] Work Phone: Start: 06-07-2024 End: 06-07-2024 ambulatory ROVERTO Joseph GILLIAN-NOSSEK Not Available Start: 05-29-2024 End: 05-29-2024 ambulatory AURELIANO Brown TIMMIS Not Available Start: 05-25-2024 End: 05-25-2024 ambulatory MARIA T Vicki HOLMANI Not Available Start: 05-19-2024 End: 05-19-2024 ambulatory RHIANNON ZARATE Not Available Start: 05-05-2024 End: 05-05-2024 ambulatory JACQUIE YIP Not Available Start: 05-01-2024 End: 05-01-2024 ambulatory MD Julio C Jarrett Work Phone: [facility] Work Phone: Start: 05-01-2024 End: 05-01-2024 Discharged Recurring MD Julio C Jarrett Work Phone: [facility] [place] Work Phone: Start: 04-30-2024 End: 04-30-2024 ambulatory MD Julio C Jarrett Work Phone: [facility] Work Phone: Start: 04-30-2024 End: 04-30-2024 Patient encounter procedure MD Julio C Jarrett Work Phone: [facility] [place] Work Phone: Start: 04-28-2024 Registered Recurring MD Julio C Jarrett Work Phone: [facility] [place] Work Phone: Start: 03-15-2024 End: 03-15-2024 ambulatory ROVERTO CARRIZALES Not Available Start: 02-25-2024 Non-patient / Non-visit MD Daniel Jarrett Work Phone: [facility] Work Phone: Start: 02-25-2024 End: 02-25-2024 Admission to same day surgery center MD Julio C Jarrett Work Phone: [facility] Work Phone: Start: 02-25-2024 End: 02-25-2024 ambulatory MD Julio C Jarrett Work Phone: [facility] Work Phone: Start: 02-21-2024 Registered Recurring MD Julio C Jarrett Work Phone: [facility] [place] Work Phone: Start: 02-02-2024 End: 02-02-2024 ambulatory ROVERTO Joseph ALL Not Available Start: 02-01-2024 End: 02-01-2024 ambulatory JULIO C JARRETT Not Available Start: 01-22-2024 Non-patient / Non-visit MD Daniel Jarrett Work Phone: [facility] Med OutPt Work Phone: Start: 01-21-2024 End: 01-22-2024 Evaluation and management of inpatient PHYSICIAN NO [facility] [place] [facility] Work Phone: Start: 01-21-2024 Registered Recurring PHYSICIAN NO [facility] [place] Work Phone: Start: 11-15-2023 End: 11-15-2023 ambulatory PHYSICIAN NO [facility] Work Phone: Start: 11-15-2023 End: 11-15-2023 Discharged Recurring PHYSICIAN NO [facility] [place] Work Phone: Start: 07-25-2023 End: 07-25-2023 ambulatory MD Julio C Jarrett Work Phone: [facility] Work Phone: Start: 07-25-2023 End: 07-25-2023 Departed Referred MD Julio C Jarrett Work Phone: [facility] [place] Work Phone: Start: 07-23-2023 End: 07-23-2023 ambulatory DUKE MORRIS Facility:[facility] Start: 07-20-2023 Registered Recurring MD Julio C Jarrett Work Phone: [facility] [place] Work Phone: Start: 06-01-2023 ambulatory ДМИТРИЙ RÍOS Facility:H1 Start: 04-20-2023 Encounter for prepro cedural cardiovascular examination ДМИТРИЙ Gaspar [facility] Start: 04-20-2023 Encounter for prepro cedural laboratory examination [facility] Chasity [facility] Start: 04-19-2023 End: 04-20-2023 ambulatory ДМИТРИЙ Gaspar [facility] Facility:H1 Start: 04-19-2023 End: 04-20-2023 Encounter for preprocedural cardiovascular examination ДМИТРИЙ Gaspar [facility] Facility:H1 Start: 02-15-2023 End: 02-16-2023 ambulatory AMELIE MARKS Facility:H1 Start: 12-21-2022 Encounter for other preprocedural examination ДМИТРИЙ Gaspar [facility] Start: 12-21-2022 Encounter for prepro cedural laboratory examination [facility] Chasity [facility] Start: 12-17-2022 End: 12-17-2022 ambulatory ДМИТРИЙ Gaspar [facility] Facility:H1 Start: 12-15-2022 End: 12-16-[address] JULIO C JARRETT Facility:H1 Start: 12-15-2022 End: 12-16-2022 Encounter for preprocedural laboratory examination DR JULIO C JARRETT Facility:H1 Start: 12-09-2022 End: 12-09-[address] JAMILA LEIGH . Facility:H1 Start: 10-26-2022 ambulatory Facility:9 Formerly named [facility] Start: 10-20-2022 End: 10-20-2022 ambulatory MD Julio C Jarrett Work Phone: [facility] Work Phone: Start: 10-20-2022 End: 10-20-2022 Patient encounter procedure MD Julio C Jarrett Work Phone: [facility]Electrodiagnostics Start: 10-06-2022 End: 10-06-[address] DANIELITO MCCORD . Facility:H1 Start: 08-18-2022 End: 08-18-2022 ambulatory Abel Hurst Other [employer] Other Start: 08-18-2022 Telephone encounter Abel Hurst [facility] Start: 08-11-2022 ambulatory Facility:[id number] Start: 08-11-2022 End: 08-11-2022 Patient encounter procedure MD Julio C Jarrett Work Phone: [facility] Start: 08-06-2022 End: 08-06-[address] DELONTE RAYO Facility:H1 Start: 07-22-2022 End: 07-22-2022 Patient encounter procedure MD Julio C Jarrett Work Phone: [facility] 250 Start: 07-22-2022 End: 07-22-2022 ambulatory Abel Wan Other [employer] Other Start: 07-22-2022 Office outpatient vi sit 25 minutes Abel Wan [facility] Start: 06-25-2022 End: 06-25-2022 ambulatory Britney Asia Other [employer] Other Start: 06-25-2022 Office outpatient vi sit 15 minutes Britney Asia [facility] Start: 05-09-2022 End: 05-09-2022 ambulatory Abel Wan Other [employer] Other Start: 05-09-2022 Office outpatient vi sit 15 minutes Abel Wan [facility] Start: 12-11-2021 End: 12-11-2021 ambulatory Britney Asia Other [employer] Other Start: 12-11-2021 Office outpatient vi sit 15 minutes Britney Asia [facility] [place] Start: 07-05-2018 Patient encounter MOSORAIDA MORENO Facility:[id number] Start: 04-05-2018 Patient encounter MOSORAIDA MORENO Facility:[id number] Procedures Date Procedure Procedure Detail [...] ABHIJIT NO FAMILY Start: 10-26-2023 Mammography Roverto Fi or-Nossek ZIPPER JOINER-[employer] Work Phone: Start: 10-05-2023 Microscopic observat ion [Identifier] in Cervix by Cyto stain Roverto Gillian-Nossek ZIPPER JOINER[employer] Work Phone: Start: 07-22-2022 X-ray of right knee MD Julio C Jarrett Work Phone: Plan of Treatment Date Care Activity Detail Author Start: 02-24-2034 Screening for malignant neoplasm of colon [facility] Start: 10-05-2028 Screening for malignant neoplasm of cervix [facility] Start: 10-05-2026 Screening for malignant neoplasm of cervix Pap Smear [facility] Start: 07-10-2025 End: 07-10-2025 Patient encounter procedure 07/10/2025 9:45 AM EDT Office Visit [facility] [address] [place] [phone] Julio C Jarrett MD [address] [place] [address] [facility] Start: 07-02-2025 End: 01-02-2026 CBC W Auto Differential panel - Blood [facility] Comment on above: Expected: 07/02/2025, Expires: Start: 07-02-2025 End: 01-02-2026 Cobalamin (Vitamin B12) [Mass/volume] in Serum or Plasma Vitamin B12 Lab Routine B12 deficiency Expected: 07/02/2025, Expires: 01/02/2026 [facility] Comment on above: Expected: 07/02/2025, Expires: Start: 07-02-2025 End: 01-02-2026 Comprehensive metabolic 2000 panel - Serum or Plasma Comprehensive metabolic panel Lab Routine Annual physical exam Essential hypertension ([facility]/HCC) Expected: 07/02/2025, Expires: 01/02/2026 [facility] Comment on above: Expected: 07/02/2025, Expires: Start: 07-02-2025 End: 01-02-2026 Hemoglobin a1c with eag Hemoglobin a1c with eag Lab Routine Prediabetes Expected: 07/02/2025, Expires: 01/02/2026 [facility] Comment on above: Expected: 07/02/2025, Expires: Start: 07-02-2025 End: 01-02-2026 Lipid 1996 panel - Serum or Plasma Lipid panel Lab Routine Annual physical exam Pure hypercholesterolemia (CMS/HCC) Expected: 07/02/2025, Expires: 01/02/2026 [facility] Comment on above: Expected: 07/02/2025, Expires: Start: 07-02-2025 End: 01-02-2026 Microalbumin/Creatinin e panel in random Urine Microalbumin / creatinine urine ratio Lab Routine Essential hypertension ([facility]/HCC) Expected: 07/02/2025, Expires: 01/02/2026 [facility] Healthcare Comment on above: Expected: 07/02/2025, Expires: Start: 07-02-2025 End: 01-02-2026 Urinalysis complete panel - Urine Urinalysis with microscopic Lab Routine Essential hypertension ([facility]/HCC) Expected: 07/02/2025, Expires: 01/02/2026 [facility] Healthcare Comment on above: Expected: 07/02/2025, Expires: Start: 03-05-2025 End: 03-05-2025 Professional / ancillary services management 03/05/2025 11:00 AM EDT Ancillary Procedure [facility] [place] [address] [place] [phone] [facility] [place] Start: 02-12-2025 End: 02-12-2025 Patient encounter procedure 02/12/2025 1:00 PM EDT Office Visit [facility] [address] [place] [address] Roverto Carrizales, ZIPPER JOINER-EVENT TECHNICIAN [address] [place] [address] [facility] Start: 01-18-2025 End: 01-18-2025 Patient encounter procedure 01/18/2025 2:00 PM EST Office Visit [facility] [address] [place] [address] Roverto Carrizales, ZIPPER JOINER-EVENT TECHNICIAN [address] [place] [address] [facility] Comment on above: Arrived Start: 01-11-2025 End: 01-11-2025 Patient encounter procedure 01/11/2025 11:00 AM EST Office Visit [facility] [address] [place] [address] Roverto Carrizales, [facility]-EVENT TECHNICIAN [address] [place] [address] [facility] Start: 01-02-2025 End: 04-01-2025 DBT Breast - bilateral screening Bilateral screening mammogram with tomosynthesis Imaging Routine Encounter for screening mammogram for malignant neoplasm of breast Expected: 01/02/2025 (Approximate), Expires: 04/01/2025 [facility] Work Phone: Comment on above: Expected: 01/02/2025 (Approximate), Expi res: 04/01/2025 Start: 01-01-2025 End: 01-01-2025 Patient encounter procedure 01/01/2025 8:45 AM EST Office Visit [facility] [address] [place] [phone] Julio C Jarrett MD [address] [place] [address] [facility] Start: 12-21-2024 End: 12-21-2024 Patient encounter procedure [facility] Comment on above: Arrived Start: 12-21-2024 End: 01-21-2025 ECG 12 lead ECG 12 lead ECG High Priorit y Hx of high risk medication treatment Expected: 12/21/2024 (Approximate), Expires: 01/21/2025 [facility] Work Phone: Comment on above: Expected: 12/21/2024 (Approximate), Expi res: 01/21/2025 Start: 12-18-2024 End: 05-18-2025 Basic metabolic 1998 panel - Serum or Plasma Basic metabolic panel Lab Routine Essential hypertension (CMS/HCC) Expected: 12/18/2024 (Approximate), Expires: 05/18/2025 [facility] Work Phone: Comment on above: Expected: 12/18/2024 (Approximate), Expi res: 05/18/2025 Start: 12-13-2024 End: 12-13-2024 Patient encounter procedure [facility] Comment on above: Arrived Start: 12-06-2024 X-ray of both knees, three views XR knee BI 3V - NOT FOR ER USE [facility] Start: 12-06-2024 XR Knee - bilateral 3 Views [facility] Start: 10-26-2024 Screening for malignant neoplasm of breast Mammogram [facility] Start: 10-17-2024 End: 10-17-2024 Patient encounter procedure 10/17/2024 2:15 PM EST Office Visit [facility] [address] [place] [phone] Quan Kang DO [address] [place] [address] [facility] Start: 09-12-2024 End: 09-12-2024 Patient encounter procedure 09/12/2024 9:00 AM EDT Office Visit [facility] [address] [facility] [address] [place] [phone] Gillian-Nossek, Roverto M, ZIPPER JOINER-EVENT TECHNICIAN [address] [facility] [address] [place] [address] [facility] Comment on above: Arrived Start: 07-30-2024 Influenza vaccination Influenza Vaccine (#1) [facility] Start: 02-25-2024 [facility] Start: 01-22-2024 [facility] Start: 01-21-2024 Referral to neurologist [facility] Start: 01-21-2024 Hospital admission [facility] Start: 01-21-2024 Bacteria identified in Urine by Culture [facility] Start: 01-21-2024 Blood culture for bacteria, including anaerobic screen Blood Culture [facility] Start: 01-21-2024 Urine culture Urine Culture [facility] Start: 01-21-2024 MRI of head MR head/brain wo con [facility] Start: 1970 Screening for malignant neoplasm of colon [facility] Patient Education [facility] Work Phone: Patient referral [facility] Work Phone: Immunizations Immunization Date Immunization Notes Care Provider Fa [facility] 11-30-2023 Influenza, injectable, Madin Radha Canine Kidney, preservative free, quadrivalent Roverto Gillian-Nossek ZIPPER JOINER-EVENT TECHNICIAN Work Phone: [facility] 11-30-2023 influenza virus vaccine, unspecified formulation Roverto Gillian-Nossek ZIPPER JOINER-EVENT TECHNICIAN Work Phone: [facility] 08-25-2022 Influenza, injectable, Madin [place] Canine Kidney, preservative free, quadrivalent Roverto Gillian-Nossek ZIPPER JOINER-EVENT TECHNICIAN Work Phone: [facility] 04-05-2021 Moderna SARS-CoV-2 Vaccination Roverto Gillian-Nossek ZIPPER JOINER-EVENT TECHNICIAN Work Phone: [facility] 09-16-2020 influenza, injectable, quadrivalent, preservative free PHYSICIAN NO [facility] 09-16-2020 influenza, injectable, quadrivalent, contains preservative Britney Asia Other [facility] Other 09-18-2019 influenza, injectable, quadrivalent, preservative free PHYSICIAN NO [facility] 09-18-2019 influenza, injectable, quadrivalent, contains preservative Britney Asia Other [employer] Other 12-09-2017 influenza, injectable, quadrivalent, preservative free Roverto FrenchJaelrichi ZIPPER JOINER-EVENT TECHNICIAN Work Phone: [facility] NEGATED: Highlighted row has not occurred!03-27-2019 influenza, seasonal, injectable Patient Objection Britney Asia Other [facility] Other Payers Date Payer Category Payer Medicaid [place] [id number] 2024 Medicaid [id number] 2023 Private Health Insurance [employer] [id number] 2023 Unknown [id number] 1968 Unknown [id number] 2.16.840.1.442255.3.579.2. 356 1968 Unknown [id number] 2.16.840.1.629323.3.579.2. 356 1968 Unknown [id number] 2.16.840.1.835845.3.579.2. 593 1968 Unknown [id number] 2.16.840.1.159417.3.579.2. 593 1968 Unknown [id number] 2.16.840.1.802177.3.579.2. 593 1968 Unknown [id number] 2.16.840.1.466501.3.579.2. 593 1968 Unknown [id number] 2.16.840.1.634086.3.579.2. 593 1968 Unknown [id number] 2.16.840.1.968715.3.579.2. 593 1968 Unknown [id number] 2.16.840.1.935617.3.579.2. 593 1968 Unknown [id number] 2.16.840.1.356359.3.579.2. 593 1968 Unknown [id number] 2.16.840.1.779958.3.579.2. 1259 1968 Unknown [id number] 2.16.840.1.001685.3.579.2. 1259 1968 Unknown [id number] 2.16.840.1.755609.3.579.2. 1259 1968 Unknown [id number] 2.16.840.1.528384.3.579.2. 1259 1968 Unknown [id number] 2.16.840.1.996930.3.579.2. 1258 1968 Unknown [id number] 2.16.840.1.264749.3.579.2. 1258 1968 Unknown [id number] 2.16.840.1.214109.3.579.2. 1258 1968 Unknown [id number] 2.16.840.1.104327.3.579.2. 1258 1968 Unknown [id number] 2.16.840.1.673806.3.579.2. 1258 1968 Unknown [id number] 2.16.840.1.214408.3.579.2. 1258 1968 Unknown [id number] 2.16840.1.518702.3.579.2. 1258 1968 Unknown [id number] 2.16.840.1.015359.3.579.2. 1258 1968 Unknown [id number] 2.16.840.1.728848.3.579.2. 1258 1968 Unknown [id number] 2.16.840.1.986753.3.579.2. 1258 1968 Unknown [id number] 2.16.840.1.931047.3.579.2. 1258 1968 Unknown [id number] 2.16.840.1.889946.3.579.2. 1258 1968 Unknown [id number] 2.16.840.1.403089.3.579.2. 1258 1968 Unknown [id number] 2.16.840.1.677699.3.579.2. 1258 1968 Unknown [id number] 2.16.840.1.974061.3.579.2. 1258 1968 Unknown [id number] 2.16.840.1.026009.3.579.2. 1259 1968 Unknown [id number] 2.16.840.1.873787.3.579.2. 9 1968 Unknown [id number] 2.16.840.1.677679.3.579.2. 1259 1968 Unknown [id number] 2.16.840.1.740431.3.579.2. 9 1968 Unknown [id number] 2.16.840.1.323985.3.579.2. 9 1968 Unknown [id number] 2.16.840.1.608967.3.579.2. 9 1968 Unknown [id number] 2.16.840.1.938139.3.579.2. 9 1968 Unknown [id number] 2.16.840.1.354079.3.579.2. 9 1968 Unknown [id number] 2.16.840.1.106408.3.579.2. 9 1968 Unknown [id number] 2.16.840.1.857288.3.579.2. 9 1968 Unknown [id number] 2.16.840.1.871571.3.579.2. 1259 1959 Unknown [id number] 1959 Unknown [id number] 1959 Unknown [id number] 1959 Unknown Self-pay Self Pay [id number] Unknown [id number] Social History Date Type Detail Facility Tobacco smoking stat [facility] Unknown if ever smoked [facility] Start: 1970 Sex Assigned At Female [facility] Start: 04-02-2023 End: 10-05-2023 Sex Assigned At [facility] Other Start: 08-09-2019 End: 04-02-2023 Tobacco smoking status NHIS Never smoked tobacco (finding) [facility] Start: 04-02-2023 Tobacco use and exposure Smokeless tobacco non-user [facility] Start: 06-07-2024 End: 01-18-2025 Alcoholic beverage intake Current drinker of alcohol [...] [facility] Start: 05-06-2023 Alcohol Comment caffeine: talata teena coke, once in a while, 1 a day [facility] Start: 05-01-2023 Gender identity Identifies as female gender (finding) [facility] Start: 12-06-2024 End: 12-07-2024 Sex Female (finding) [facility] Medical Equipment Procedure Code Equipment Code Equipment Origin al Text Equipment Identifier Dates EGD, with Sheldon pH monitoring device placement [id number] FDA Start: 08-09-2019 Goals Date Patient Goal Desired Activity /State Functional Status Date Assessment Result Facility 01-21-2024 Functional status Patient at Baseline [facility] Work Phone: Mental Status Date Assessment Result Facility 01-21-2024 Cognitive function Cognitive Sta tus Patient at Baseline [facility] Work Phone: Clinical Notes 12-11-2021 to 01-18-2025 [facility]ales [facility] 01/18/2025 2:00 PM Kayleen Paz, ANDREIA - 01/02/2025 8:45 AM Lou [facility] - 12/21/2024 2:45 PM EST Note Date & Type Note Facility 01-18-2025 History of Presen t illness Narrative Images from the original note were not included. Note patient was hospitalized 12/28/24-patient had EKG showed abnormal EKG Yarelis Swenson is a 54 y.o. female presents for Medication Management. HPI: Patient is here for medication follow up. Presents with ongoing tongue movements, tongue. Planned to start Ingrezza to help. Patient has improved mood since last appt. Mood is reported as not depressed. Anxiety is moderate. Sleeping 8 hours. Medication compliant. No reported side effects. Denies abuse of substances. Medical problems since last visit. Was seen in ER. -Psychosocial stressors include was not getting paid. SUBJECTIVE: PAST MEDICAL HISTORY: Past Medical History: [...] 11/02/2022 MR ANGIOGRAM HEAD WO IV CONTRAST [facility] DATA LEGACY MR ANGIOGRAM HEAD WO IV [...] Drug use: Never Depression: Not at risk (12/21/2024) PHQ-2 PHQ-2 Score: 0 REVIEW OF SYMPTOMS - MENTAL STATUS EXAM Appearance Appearance: Normal grooming and hygiene. Appears stated age. Dressed appropriately for weather. Behavior Calm, cooperative, pleasant. Good posture.. Speech Normal, clear, regular rate, rhythm and volume Affect Full range. Stable. Appropriate and congruent with mood. Mood Anxious Thought Process Organized, logical, and goal directed Thought Content Denies suicidal and homicidal ideation Perception Denies auditory and visual hallucinations. No evidence of delusions. Orientation Appropriate to age, Person, Place, and Time Memory/Concentration Immediate, recent and remote memory intact Insight/Judgement Good. Able to make reasonable life decisions. OBJECTIVE: Visit Vitals OB Status Postmenopausal Smoking [...] depressed, moderate (CMS/HCC) Generalized anxiety disorder (CMS/HCC) TD- Aims 4 56 year old with Bipolar disorder and CLAUDY was stable on abilify and zoloft. We changed to zoloft and is much improved. Patient developed TD- abilify lowered and no improvement. Was stop ed. Mainly mouth and tongue movements. Starting Ingrezza to target TD. Patient having side effects of tongue movements and legs feel like has to keep moving. on current medications. Psych Medication List vistaril 50mg 1 q8 hours prn anxiety-has not needed zoloft 100 mg in am No improvement in tongue movements . Reviewed patient hx of and will obtain a EKG before starting Ingrezza. Patient not to start until EkG complete and read. Patient given samples Dec 21 1 week of 40/ Two weeks of 60 to start after results of EKG Will repeat EKG after taking Ingrezza Patient was seen Face to Face, Reviewed chart documents and documentation, Visit time : 22min Follow up 3 weeks documented in this encounter [facility] 01-02-2025 History of Presen t illness Narrative Images from the original note were not included. Yarelis Swenson is a 54 y.o. female presents with chief complaint of Routine OV, ER Follow-up (12/28/2024 [facility] dx: chest pain, Influenza A. She has dry cough, hospital prescribed Mucinex, which made symptoms worse. Taking Advil Cold & Sinus), and Restless Legs (Requesting increase of Gabapentin) HPI: History of Present Illness The patient presents for evaluation of influenza, restless legs syndrome, and health maintenance. She was diagnosed with influenza 4 days ago, which is resolving. She reports no current chest pain or respiratory distress but continues to experience a persistent cough. Her bowel movements are regular. She attributes the decline in her kidney function to aspirin intake. She has a history of using a CPAP machine but has discontinued its use. She is currently on a regimen of gabapentin 1200 mg at night for restless legs syndrome and is seeking an this as an increase in dosage. She does not take this medication during the day. She had a mammogram in 2022 but has not had another one since. She does follow with gynecology. She had a Pap smear last year with Dr. Kang. Her heartburn is well controlled with famotidine. MEDICATIONS Current: gabapentin, famotidine I have reviewed and reconciled the history [...] Drug use: Never Depression: Not at risk (12/21/2024) PHQ-2 PHQ-2 Score: 0 FAMILY HISTORY: Family History Problem Relation Name Age of Onset Heart disease Father Stroke Father Alzheimer's disease Father Dementia Father No Known Problems Brother No Known Problems Daughter Breast cancer Mother's Sister No Known Problems Son Colon cancer Neg Hx Ovarian cancer Neg Hx MEDICATIONS: Current Outpatient Medications Medication Instructions Acetaminophen (TYLENOL 8 HOUR PO) Tylenol Aspirin Low Dose 81 mg, Daily atorvastatin (LIPITOR) 80 mg, Daily ezetimibe (ZETIA) 10 mg, Oral, Daily famotidine (PEPCID) 20 mg, Every 24 hours gabapentin (Neurontin) 300 MG capsule TAKE 1 CAPSULE BY MOUTH EVERY MORNING AND AFTERNOON AND TAKE TWO CAPSULES BY MOUTH EVERY NIGHT AT BEDTIME hydroCHLOROthiazide (HYDRODiuril) 25 MG tablet TAKE 1 TABLET BY MOUTH DAILY IN THE MORNING hydrOXYzine HCl (ATARAX) 50 mg, Oral, 2 times daily PRN ibuprofen 600 MG tablet Every 8 hours PRN losartan (Cozaar) 25 MG tablet TAKE 1 TABLET BY MOUTH ONCE DAILY sertraline (ZOLOFT) 100 mg, Oral, Daily ALLERGIES: Allergies Allergen Reactions Acetaminophen GI intolerance Amoxicillin Hives Bupropion Other Reaction(s): caused made me feel weird drowsiness, lack of motivation Oxycodone GI intolerance PHYSICAL EXAM: Visit Vitals BP 126/78 (BP Location: Left arm, Patient Position: Sitting) Pulse 78 Ht 5' 4 Wt 210 lb SpO2 98% BMI 36.05 kg/m OB Status Postmenopausal Smoking Status Never BSA 2.07 m BP Readings from Last 3 Encounters: 01/02/25 126/78 12/21/24 138/84 12/13/24 126/78 Wt Readings from Last 3 Encounters: 01/02/25 210 lb 12/21/24 210 lb 12/13/24 200 lb Physical Exam HENT: Right Ear: Tympanic membrane and external ear normal. Left Ear: Tympanic membrane and external ear normal. Mouth/Throat: Mouth: Mucous membranes are moist. Neck: Thyroid: No thyroid mass or thyromegaly. Vascular: No carotid bruit. Cardiovascular: Rate and Rhythm: Normal rate and regular rhythm. Heart sounds: No murmur heard. No friction rub. No gallop. Pulmonary: Effort: Pulmonary effort is normal. Breath sounds: Normal breath sounds. Abdominal: General: Bowel sounds are normal. Palpations: Abdomen is soft. Tenderness: There is no abdominal tenderness. Musculoskeletal: Right lower leg: No edema. Left lower leg: No edema. Lymphadenopathy: Cervical: No cervical adenopathy. Skin: General: Skin is warm and dry. Neurological: Mental Status: She is alert and oriented to person, place, and time. Psychiatric: Thought Content: Thought content normal. Results Laboratory Studies Kidney function was slightly decreased with a creatinine level of 1.1 and GFR of 51. ASSESSMENT AND PLAN: Assessment & Plan 1. Annual physical exam (Primary) Doing well. Discussed eating healthy and exercising regularly. No major issues. Exam is unremarkable. Health maintenance is up-to-date except mammogram. Call if any health issues arise. Otherwise, reassess again in one year. - Comprehensive metabolic panel; Future - Lipid panel; Future - Comprehensive metabolic panel - Lipid panel 2. Essential hypertension (CMS/HCC) Doing well. Blood pressures have been good. Continue lifestyle modifications. Continue current medication. Call if any problems or if home blood pressures rising. - CBC and differential; Future - CBC and differential - Comprehensive metabolic panel; Future - Microalbumin / creatinine urine ratio; Future - Urinalysis with microscopic; Future - CBC and differential; Future - Comprehensive metabolic panel - Microalbumin / creatinine urine ratio - Urinalysis with microscopic - CBC and differential 3. Pure hypercholesterolemia (CMS/HCC) Continue current medication, eat a healthy diet, and exercise regularly. - Lipid panel; Future - Lipid panel 4. History of multiple strokes Stable. Continue aggressive risk factor modification. 5. Prediabetes Continue to minimize added sugars, carbohydrates and control overall calories. Encouraged regular exercise will help to increase your sensitivity to insulin and can help with weight loss or maintenance to prevent progression to diabetes. - Hemoglobin a1c with eag; Future - Hemoglobin a1c with eag 6. Obstructive sleep apnea syndrome She does not wear CPAP. Continue to monitor. 7. Cognitive impairment Stable. Continue to monitor. 8. B12 deficiency Continue to monitor. - Vitamin B12; Future - CBC and differential; Future - Vitamin B12 - CBC and differential 9. Moderate episode of recurrent major depressive disorder (CMS/HCC) Stable. Continue to monitor. 10. Generalized anxiety disorder (CMS/HCC) Stable. Continue to monitor. 11. Restless legs The dosage of gabapentin will be increased to 1200 mg at night. A prescription for 120 tablets per month will be sent to [facility]. - gabapentin (Neurontin) 300 MG capsule; Take 4 capsules (1,200 mg) by mouth at bedtime TAKE 1 CAPSULE BY MOUTH EVERY MORNING AND AFTERNOON AND TAKE TWO CAPSULES BY MOUTH EVERY NIGHT AT BEDTIME Dispense: 120 capsule; Refill: 2 12. Idiopathic peripheral neuropathy The dosage of gabapentin will be increased to 1200 mg at night. A prescription for 120 tablets per month will be sent to [facility]. - gabapentin (Neurontin) 300 MG capsule; Take 4 capsules (1,200 mg) by mouth at bedtime TAKE 1 CAPSULE BY MOUTH EVERY MORNING AND AFTERNOON AND TAKE TWO CAPSULES BY MOUTH EVERY NIGHT AT BEDTIME Dispense: 120 capsule; Refill: 2 13. Encounter for screening mammogram for malignant neoplasm of breast A mammogram will be ordered, and she will be contacted to schedule the appointment. She is advised to follow up with gynecology for routine care. - Bilateral screening mammogram with tomosynthesis; Future Her renal function in ER has shown a slight decrease, which could be attributed to her recent illness. She is expected to recover fully within the next 5 to 7 days. She is advised to maintain adequate hydration. A follow-up blood test will be scheduled in 2 weeks to monitor her renal function. She can continue taking her current medications for cold and flu symptoms. Follow-up The patient will follow up in [address] Jarrett was present in the office at the time of visit today and is supervising patient care. I am following Dr. Jarrett's established plan of care for the above issues. documented in this encounter [facility] 12-21-2024 History of Presen t illness Narrative Images from the original note were not included. Yarelis Swenson is a 54 y.o. female presents for Medication Management. HPI: Patient is here for medication follow up. Patient has improved since last appt. 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 Mood is reported as not [...] SURGICAL HISTORY laparoscopy OTHER SURGICAL HISTORY 08/2022 angelitozora alda ROTATOR CUFF REPAIR Right 2017 ROTATOR CUFF [...] and Place Memory/Concentration Short term intact and mcc intact Insight/Judgement Good OBJECTIVE: Visit Vitals OB [...] to distance patient drives Completed form for test desk supervisor also during appt. Patient was seen Face to Face, Reviewed chart documents and documentation, Visit time : 45min 3 weeks documented in this encounter [facility] 12-13-2024 History of Presen t illness Narrative [...] and Time Memory/Concentration Short term intact and mcc intact Insight/Judgement Good OBJECTIVE: Visit Vitals OB [...] weeks assess movements documented in this encounter [facility] 12-06-2024 Evaluation note Diagnosis Onset Date Resolution Bilateral primary osteoarthritis of knee acute December 062024 1:36pm [facility] Work Phone: 1(256) 227-873012-20-2024 History of Present illness Narrative* Rhiannon Zarate NP - 11/17/2024 8:15 AM EST Images from the original note were not included. Yarelis Swenson is a 54 y.o. female presents with chief complaint of needing exam to apply for disability (Pt has not started paperwork for this. Hx of Stroke, anxiety and pain. She does follow Geovany Carrizales NP for psych) HPI: History of Present Illness The patient presents for evaluation of disability paperwork. She is seeking assistance in initiating the process for disability due to her medical history, which includes a stroke, anxiety, and chronic pain. 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 She is seeking refills for this medication as her insurance does not cover the RX at [facility]. She is currently on gabapentin 300 mg, [...] refills will be provided and sent to [facility]. It isnoted that the treatment may take months to show improvement. Follow with Dr. Cruz as needed. 2. Restless leg syndrome. The gabapentin dosage will be increased to 1200 mg daily, divided into 300 mg in the morning, 300 mg in the afternoon, and 600 mg at night. A 30-day supply will be provided and sent to [facility]. The patient is advised to give the [...] follow-up. Jacquie Yip NP documented in this encounterSSM [facility] [id number] History of Present illness Narrative* Roverto Carrizales, ZIPPER JOINER-EVENT TECHNICIAN - 09/12/2024 9:00 AM EDT Images from [...] and Time Memory/Concentration Short term intact and mcc intact Insight/Judgement Good OBJECTIVE: Visit Vitals BP [...] Follow up : 3months documented in this encounterSSM [facility] [id number] [facility] Consult note Author Elkin Mcmahon [facility] February 24th, 2024 12:23pm Note Date/Time January 22, 2024 12:18pm [facility] [address] [place] [address] Neurology Consult Note Signed Patient: Yarelis Swenson MR#: [id number] : 1970 Acct:[id number] Age/Sex: 53 / F Adm Date: 4 Loc: 3T Room: [address] [place] [address] Type: ADM IN Attending Dr: Michael Wells MD Copies to: MD Julio C Vides MD Steven Benedict, MD~ HPI Consult Date: 01/22/24 Library Services Coordinator: Elkin Mcmahon MD Reason for consult: Confusion [...] aspirin. The patient was treated at the [facility] for these symptoms. This record [...] negative unless noted below or in HPI [facility] Medical History Neuroma of right [...] Danielito Haro M.D.01/21/2024 12:19 PM Dictation Location: [place] [address] 01/21/24 11:34 IMPRESSION: There are [...] Alicia Tian M.D.01/21/2024 11:56 AM Dictation Location: [facility]- Head CTA 01/21/24 11:38 IMPRESSION: There is mild irregular narrowing of the P1 and P2 segments of the posterior cerebral arteries bilaterally which may be atherosclerotic or less likely secondary to vasculitis. No evidence of focal stenosis, aneurysmal dilatation, dissection or occlusion, otherwise. Impression dictated by: Alicia Tian M.D.01/21/2024 12:04 PM Dictation Location: [place] [address] Brain MRI 01/21/24 12:49 IMPRESSION: No acute intracranial process. Findings consistent with chronic small vessel ischemic changes. Impression dictated by: Danielito Haro M.D.01/21/2024 5:57 PM Dictation Location: [place] [address] Assessment/Plan (1) Acute CVA (cerebrovascular accident): Assessment/Problem [...] <Electronically signed by MD Elkin Mcmahon> 01/22/[address] [facility] Work Phone: 1(987) 679-678702-23-2024 History and physical note Author Michael Wells [facility] January 21, 2024 5:39pm Note Date/Time January 21, 2024 3:50pm [facility] [address] [place] [address] Hospitalist H&P Signed Patient: Yarelis Swenson MR#: [id number] : 1970 Acct:[id number] Age/Sex: 53 / F Adm Date: 4 Loc: Room: [address] [place] [address] Type: ADM IN Attending Dr: Michael Wells MD Copies to: MD Andrew Vides DO,[facility] Julio C aJrrett MD~ HPI DATE OF EXAMINATION: 01/21/24 CHIEF [...] of care and confirmed it with the resident/student/SENIOR ORACLE DATABASE ADMINISTRATOR. Patient is a 53-year-old female who initially [...] nontender, nondistended Neuro: CN II-XII intact. Normal pvkw-[id number] testing bilaterally. Normal sensation to the bilateral [...] for DVT prophylaxis Regular diet Full code PMFSH Medical History Neuroma of right leg Rotator [...] % (Auto) 25.9 % (.) 01/21/24 11:39 [place] % (Auto) 5.8 % (.) 01/21/24 11:39 Eos % (Auto) 1.4 % (.) 01/21/24 11:39 Baso % (Auto) 0.6 % (.) 01/21/24 11:39 Nucleat RBC Rel Count 0.1 /100 WBC (0-0.5) 01/21/24 11:39 Neut # (Auto) 5.2 x10E3/uL (1.8-7.7) 01/21/24 11:39 Lymph # (Auto) 2.0 x10E3/uL (1.00-4.8) 01/21/24 11:39 [place] # (Auto) 0.5 x10E3/uL (0.0-0.8) 01/21/24 11:39 [...] pH 7.5 (5.0-9.0) 01/21/24 12:01 Ur Specific [place] 1.050 (1.001-1.030) H 01/21/24 12:01 Urine Protein [...] <Electronically signed by Michael Wells MD> 01/21/[address] [facility] Work Phone: 1(181) 549-755708-24-2022 Evaluation note* Encounter Date Diagnosis Assessment Notes [...] She understands and agrees with the plan. [facility] Other 07-28-2022 Evaluation note* Encounter Date Diagnosis [...] risk of hypokalemia including cardiac arrhythmias and [employer] [facility] Other 06-11-2022 Evaluation note* Encounter Date Diagnosis [...] symptoms do not improve in 7 days. 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 She has unremarkable w/u for [place] disease, primary hyperaldosteronism or pheochromocytoma. Nov, Chronic [...] within normal limits. I prescribed oral ergocalciferol. [facility] Other Evaluation noteNo assessment information available [facility] Work Phone: Evaluation noteNo InformationNort [employer] Other Evaluation note* Diagnosis Onset Date Resolution Status Acute CVA (cerebrovascular accident) acute [facility] Work Phone: Evaluation note* Diagnosis Onset Date Resolution Status Acute CVA (cerebrovascular accident) resolved [facility] Work Phone: Evaluation note* Diagnosis Onset Date Resolution Status Acute glossitis noneactive [facility] Work Phone: Evaluation note* Diagnosis Bipolar [...] glucose BMI 35.0-35.9,adult [facility] [...] idiopathic peripheral neuropathy [facility] [...] of both knees [facility]* Diagnosis Onset Date Resolution Status Admit Date Bilateral primary osteoarthr itis of knee acute December 06 1:36pm [facility] Work Phone: Evaluation note* Diagnosis Bipolar [...] medication treatment [facility]* Diagnosis Bipolar affective disorder, currently depressed, moderate (CMS/HCC)- Primary Bipolar I disorder, most recent episode (or current) depressed, moderate Multiple lacunar infarcts (CMS/HCC) Cognitive impairment Unspecified persistent mental disorders due to conditions classified elsewhere Chest pain, unspecified type Gastroesophageal reflux disease, unspecified whether esophagitis present Hypertension, unspecified type (CMS/HCC) Annual physical exam- Primary Routine general medical examination at a health care facility Essential hypertension (CMS/HCC) Unspecified essential hypertension Pure hypercholesterolemia (CMS/HCC) Pure hypercholesterolemia History of multiple strokes Prediabetes Other abnormal glucose Obstructive sleep apnea syndrome Obstructive sleep apnea (adult) (pediatric) Cognitive impairment Unspecified persistent mental disorders due to conditions classified elsewhere B12 deficiency Moderate episode of recurrent major depressive disorder (CMS/HCC) Generalized anxiety disorder (CMS/HCC) Generalized anxiety disorder Restless legs Restless legs syndrome (RLS) Idiopathic peripheral neuropathy Unspecified hereditary and idiopathic peripheral neuropathy Encounter for screening mammogram for malignant neoplasm of breast [facility] [...] most recent episode (or current) depressed, moderate Hx of high risk medication treatment Generalized anxiety disorder (CMS/HCC) Generalized anxiety disorder Tardive dyskinesia Subacute dyskinesia due to drugs documented in this encounter [facility] Author Ayaan Pulido [facility] February 25, 2024 12:31pm Note Date/Time February 25, 2024 12: 31pm [facility] [address] [place] [address] Gastroenterology H&P Signed Patient: Yarelis Swenson MR#: [id number] : 1970 Acct:[id number] Age/Sex: 54 / F Adm Date: 4 Loc: Room: Type: [facility] Attending Dr: Ayaan Pulido MD Copies to: [...] signed by Ayaan Pulido MD> 02/25/[address] [facility] Work Phone: Hisfbrp general Narrative - Reported* Type Description Date [...] 11/2006 ) Surgical History lumpectomy, right breast 2012 Surgical History rotator cuff surgery 10/06/16 Surgical History COLONOSCOPY 05/2018 Surgical History L rotator cuff 07/2020 Hospitalization History see above [employer] Other Summary Purpose Family History No Family [...] right knee, initial encounter (S89.91XA) Referral Organization [facility] [place] Referring Provider First Name Abel Referring Provider Last Name Redrock Referring Provider Specialty Nurse Pract itioner Referred Organization [facility] Referred Address [address] [facility],[place], [place],[address] Referred Provider Specialty Sport Medici ne Referral [...] in right knee November 12:11pm CONSULT RHIANNON RISALITI BILAT KNEE PAIN, N X December 06, 2024 1:36pm Reason for Visit Admit Date Bilateral primary osteoarthritis of knee December 06, 2024 1:36pm Chief Complaint Admit Date L foot stress fx September 11, 2024 7 :45am return to work September 29, 2024 9 :51am M25.561 M25.562 December 06, 2024 12 :11pm CONSULT RHIANNON RISALITI BILAT KNEE PAIN, N X December 06, 2024 1:36pm Additional Source Comments INFORMATION SOURCE (unrecogn ized section and content) DATE CREATED AUTHOR 06/28/2018 [facility] Healthcare DATE CREATED AUTHOR AUTHOR'S ORGANIZ ATION 2020 [facility] DATE CREATED AUTHOR AUTHOR'S ORGANIZ ATION 04/20/2020 [facility] DATE CREATED AUTHOR AUTHOR'S ORGANIZ ATION 10/19/2022 [facility] dical Specialist DATE CREATED AUTHOR AUTHOR'S ORGANIZ ATION 11/05/2022 [facility] DATE CREATED AUTHOR AUTHOR'S ORGANIZ ATION 05/11/2023 [facility] DATE CREATED AUTHOR AUTHOR'S ORGANIZ ATION 07/24/2023 [facility] DATE CREATED AUTHOR AUTHOR'S ORGANIZ ATION 12/12/2024 [facility] DATE CREATED AUTHOR AUTHOR'S ORGANIZ ATION 01/20/2025 [facility] dical Specialists EPIC REASON FOR VISIT (unrecogniz ed section and content) Reason Comments Med Management Follow-up Reason Comments discuss medications Reason Onset Date Comments Med Refill 10/30/2024 Reason Comments needing exam to apply for disability Pt has not started paperwork for this. Hx of Stroke, anxiety and pain. She does follow with Roverto Carrizales NP for psych Reason Comments Routine OV ER Follow-up 12/28/2024 [facility] dx: chest pain, Influenza A. She has dry cough, hospital prescribed Mucinex, which made symptoms worse. Taking Advil Cold & Sinus Restless Legs Requesting increase of Gabapentin Care Teams (unrecognized sec tion and content) Team Status: Inactive Member Role Status Dates Julio C Jarrett MD Primary Care Provider, Attending Prov ider Active Team Status: Active Member Role Status Dates Julio C Jarrett MD Primary Care Provider Active Team Status: Inactive Member Role Status Dates Julio C Jarrett MD Primary Care Provider Active VANESSA Cervantes Attending Provider Activ e Team Status: Active [...] 2024 Michael Wells MD Admit Provider, Attkevin junior Provider Active Start: January 21, 2024 Team [...] 2024 End: January 22, 2024 Chely Cordon APRN-WIRELESS RETAIL MANAGER-C Other Provider Active Start: January 21, 2024 [...] Sta rt: January 22, 2024 Chely Cordon APRN-WIRELESS RETAIL MANAGER-C Other Provider Active Start: January 22, 2024 [...] Team Status: Inactive Member Role Status Teri Ríos DPM MS [...] September 11, 2024 End: September 11, 2024 Pediatric Physical Therapist Relationship Specialty Start Date End Date Julio C Jarrett MD [address] [place] [address] PCP - General Internal Medicine 05/04/23 Pediatric Physical Therapist Relationship Specialty Start Date End Date Julio C Jarrett MD [address] [place] [address] PCP - General Internal Medicine 05/04/23 Pediatric Physical Therapist Relationship Specialty Start Date End Date Julio C Jarrett MD [address] [place] [address] PCP - General Internal Medicine 05/04/23 Team Status: Inactive Member Role Status Teri Jarrett MD Primary Care Provider Active St art: September 29, 2024 End: September 29, 2024 RAFA CazaresM MS Attending Provider Active Start: September 29, 2024 End: September 29, 2024 Pediatric Physical Therapist Relationship Specialty Start Date End Date Julio C Jarrett MD [address] [place] [address] PCP - General Internal Medicine 05/04/23 Pediatric Physical Therapist Relationship Specialty Start Date End Date Julio C Jarrett MD [address] [place] [address] PCP - General Internal Medicine 05/04/23 Team Status: Active Member Role Status Teri Jarrett MD Primary Care Provider Active St art: December 06, 2024 Maik Mcmillan DO Attending Provider Active S tart: December 06, 2024 Team Status: Inactive Member Role Status Teri Jarrett MD Primary Care Provider Active St art: December 06, 2024 End: December 06, 2024 Maik Mcmillan DO Attending Provider Active S tart: December 06, 2024 End: December 06, 2024 Pediatric Physical Therapist Relationship Specialty Start Date End Date Julio C Jarrett MD [address] [place] [address] PCP - General Internal Medicine 05/04/23 Pediatric Physical Therapist Relationship Specialty Start Date End Date Julio C Jarrett MD [address] [place] [address] PCP - General Internal Medicine 05/04/23 Pediatric Physical Therapist Relationship Specialty Start Date End Date Julio C Jarrett MD [address] [place] [address] PCP - General Internal Medicine 05/04/23 Roverto Carrizales, ZIPPER JOINER-EVENT TECHNICIAN [address] [place] [address] Nurse Practitioner Psychiatry 12/15/24 Pediatric Physical Therapist Relationship Specialty Start Date End Date Julio C Jarrett MD [address] [place] [address] PCP - General Internal Medicine 05/04/23 Roverto Carrizales, ZIPPER JOINER-EVENT TECHNICIAN [address] [place] [address] Nurse Practitioner Psychiatry 12/15/24 Pediatric Physical Therapist Relationship Specialty Start Date End Date Julio C Jarrett MD [address] [place] [address] PCP - General Internal Medicine 05/04/23 Roverto Carrizales, ZIPPER JOINER-EVENT TECHNICIAN [address] [place] [address] Nurse Practitioner Psychiatry 12/15/24 Pediatric Physical Therapist Relationship Specialty Start Date End Date Julio C Jarrett MD [address] [place] [address] PCP - General Internal Medicine 05/04/23 Roverto Carrizales, ZIPPER JOINER-EVENT TECHNICIAN [address] [place] [address] Nurse Practitioner Psychiatry 12/15/24 Pediatric Physical Therapist Relationship Specialty Start Date End Date Julio C Jarrett MD [address] [place] [address] PCP - General Internal Medicine 05/04/23 Roverto Carrizales, ZIPPER JOINER-EVENT TECHNICIAN [address] [address] Nurse Practitioner Psychiatry 12/15/24 Goals (unrecognized section [...] BE BASED ON THE PRIMARY CLINICAL RECORDS. [facility] [employer] [facility]. provides no warranty or guarantee of the accuracy or completeness of information in this document.
== END 2025-01-30 12:29 | disposition home or self-care (01) ==
LOC: RAD 12:28
PROVIDERS: PCP Internal Medicine; Visit Provider Podiatrist Foot & Ankle Surgery
DX: M79.672 Pain in left foot (principal); M85.872 Other specified disorders of bone density and structure, left ankle and foot
CPT/HCPCS: 73630

== ENCOUNTER 2025-02-20 15:40 | Emergency (ER) | payer OTHER, SELFPAY ==
[2025-02-20 15:46] VITALS: BP 143/75; PULSE 92; TEMP 36.9; O2SAT 96; BMI 34.4
--- NOTE | 2025-02-20 15:49 | ECG_ITS ---
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 Measurements Intervals Bryant Rate: 84 P: 30 UT: 188 QRS: -36 QRSD: 86 T: 60 QT: 360 QTc: 401 Interpretive Statements 1100 Sinus rhythm 5234 Left ventricular hypertrophy with repolarization abnormality 7200 Abnormal left axis deviation 8003 Consistent with pulmonary disease 9150 abnormal ECG Compared to ECG 12/28/2024 10:56:20 Left ventricular hypertrophy now present Sinus tachycardia no longer present Electronically Signed On 02-20-2025 17:44:58 EDT by MILI GARZA M.D.
--- NOTE | 2025-02-20 16:04 | ED.CHESTPAI1 ---
HPI - Chest Pain General Chief Complaint: Chest Pain Stated Complaint: CHEST PAINS Time Seen by Provider: 02/20/25 15:48 Source: patient Mode of arrival: walk-in Limitations: no limitations History of Present Illness HPI narrative: Patient is a 55-year-old female with a history of high blood pressure and cholesterol who presents to the emergency department for chest pain that began several hours ago at home. She states she was at rest when she developed retrosternal chest pain. She has no significant pain at this time. She denies fevers, chills, cough or congestion. She is not a smoker. She states she had a stress test about 10 years ago that was normal. She has no history of coronary artery disease. She has baseline tardive dyskinesia. No swelling in the legs. She took an aspirin prior to arrival. Related Data Home Medications ?Medication ?Instructions ?Recorded ?Confirmed venlafaxine 150 mg 150 mg PO QPM 04/28/23 07/21/23 capsule,extended release 24 hr (Effexor XR) aripiprazole 10 mg tablet (Abilify) 10 mg PO DAILY 07/21/23 07/21/23 hydrochlorothiazide 25 mg tablet 25 mg PO DAILY 07/21/23 07/21/23 losartan 25 mg tablet 25 mg PO DAILY 07/21/23 07/21/23 pravastatin 40 mg tablet 40 mg PO DAILY 07/21/23 07/21/23 Previous Rx's ?Medication ?Instructions ?Recorded clindamycin HCl 300 mg capsule 300 mg PO Q6H 14 days #56 caps 07/26/23 sulfamethoxazole 800 1 tab PO BID 14 days #28 tabs 07/26/23 mg-trimethoprim 160 mg tablet cyclobenzaprine 10 mg tablet 10 mg PO TID PRN leg pain 10 days 07/27/23 #30 tabs hydrocodone 5 mg-acetaminophen 325 1 tab PO Q6H PRN pain 7 days #28 07/27/23 mg tablet tabs rivaroxaban 15 mg tablet (Xarelto) 15 mg PO BID clot prevention 21 07/27/23 days #42 tabs acetaminophen 650 mg 650 mg PO Q8H PRN fever or pain 12/28/24 tablet,extended release (Tylenol 8 #20 tabs Hour) guaifenesin 600 mg tablet, 600 mg PO BID PRN cough #10 tabs 12/28/24 extended release 12 hr (Mucinex) Allergies Allergy/AdvReac Type Severity Reaction Status Date / Time amoxicillin Allergy Mild Rash Verified 02/20/25 15:51 Review of Systems ROS Constitutional Denies: fever or chills Ears, nose, mouth, and throat Denies: throat pain or nasal congestion Cardiovascular Reports: chest pain Respiratory Denies: shortness of breath or cough Gastrointestinal Denies: nausea or vomiting Musculoskeletal Denies: back pain or neck pain Integumentary/Breast Denies: rash Neurological Denies: numbness in extremities or weakness in extremities Hematologic/Lymphatic Denies: easy bruising or easy bleeding [facility] Medical History (Updated 02/20/25 @ 17:36 by MILLI Clements) Sepsis ?A41.9 - Sepsis, unspecified organism (ICD-10) Tubal ligation evaluation ?Z01.818 - Encounter for other preprocedural examination (ICD-10) Visual disturbance ?H53.9 - Unspecified visual disturbance (ICD-10) Hip pain, right ?M25.551 - Pain in right hip (ICD-10) Menopausal state ?N95.1 - Menopausal and female climacteric states (ICD-10) TIA (transient ischemic attack) ?G45.9 - Transient cerebral ischemic attack, unspecified (ICD-10) Dizziness ?R42 - Dizziness and giddiness (ICD-10) COVID ?U07.1 - COVID-19 (ICD-10) Acute bronchitis ?J20.9 - Acute bronchitis, unspecified (ICD-10) Cough ?R05.9 - Cough, unspecified (ICD-10) Epistaxis ?R04.0 - Epistaxis (ICD-10) Sleep apnea ?G47.30 - Sleep apnea, unspecified (ICD-10) Rupture Achilles tendon ?S86.019A - Strain of unspecified Achilles tendon, initial encounter (ICD-10) Migraine ?G43.909 - Migraine, unspecified, not intractable, without status migrainosus (ICD-10) High cholesterol ?E78.00 - Pure hypercholesterolemia, unspecified (ICD-10) GERD (gastroesophageal reflux disease) ?K21.9 - Gastro-esophageal reflux disease without esophagitis (ICD-10) Anxiety ?F41.9 - Anxiety disorder, unspecified (ICD-10) Surgical History (Updated 04/28/23 @ 15:46 by Radha Cherry RN) Status post Achilles tendon repair ?Z98.890 - Other specified postprocedural states (ICD-10) H/O repair of rotator cuff ?Z98.890 - Other specified postprocedural states (ICD-10) History of abdominoplasty ?Z98.890 - Other specified postprocedural states (ICD-10) Family History (Updated 07/21/23 @ 14:26 by Jaqueiln Ortiz) Father Coronary artery disease Hypertension Prostate cancer Family history of cancer Mother Coronary artery disease Hypertension Family history of stroke Social History Within the past year, how often did you have a drink containing alcohol: 2-4 times a month Within the past year, how many standard drinks containing alcohol did you have on a typical day: 1 or 2 Within the past year, how often did you have six or more drinks on one occasion: never Total score: 0 Score interpretation: A score less than 3 is consistent with normal alcohol consumption. Smoking status: Never smoker Non-prescribed substance use: denies use Previous occupational history: [employer] Highest level of school completed/degree received: high school graduate Are you now , , , , never or living with a partner: In a typical week, how many times do you talk on the telephone with family, friends, or neighbors: 3 or more times per week How often do you get together with friends or relatives: twice per week How often do you attend sabianism or druze services: never Do you belong to any clubs or organizations such as sabianism groups unions, fraternal or athletic groups, or school groups: no Total score: 1 Score interpretation: A score of less than or equal to 1 indicates the most socially isolated. Little interest or pleasure in doing things: not at all Feeling down, depressed, or hopeless: not at all Feel stressed/tense/nervous/anxious/difficulty sleeping: not at all Exam Narrative Exam Narrative: Gen.: Awake, alert, in no distress Head: Normocephalic, atraumatic ENT: Moist mucous membranes Respiratory: No respiratory distress, lungs clear bilaterally Cardio: Regular rate and rhythm Gastrointestinal: Abdomen is soft, nondistended and nontender to palpation Extremities: Moves extremities equally Psych: Normal mood and affect Neuro: No focal neuro deficit Skin: Warm, dry, intact Constitutional Vital Signs, click to edit/add: Last Vital Signs Temp 98.5 F 02/20/25 15:46 Pulse 92 H 02/20/25 15:46 Resp 18 02/20/25 15:46 BP 143/75 H 02/20/25 15:46 Pulse Ox 96 02/20/25 15:46 O2 Del Method Room Air 02/20/25 15:46 Course Vital Signs Vital signs: Vital Signs Temperature 98.5 F 02/20/25 15:46 Pulse Rate 92 H 02/20/25 15:46 Respiratory Rate 18 02/20/25 15:46 Blood Pressure 143/75 H 02/20/25 15:46 Pulse Oximetry 96 02/20/25 15:46 Oxygen Delivery Method Room Air 02/20/25 15:46 Temperature 98.5 F 02/20/25 15:46 Pulse Rate 92 H 02/20/25 15:46 Respiratory Rate 18 02/20/25 15:46 Blood Pressure 143/75 H 02/20/25 15:46 Pulse Oximetry 96 02/20/25 15:46 Oxygen Delivery Method Room Air 02/20/25 15:46 MDM - Chest Pain MDM Narrative Medical decision making narrative: EKG obtained, chest x-ray was also obtained. Labs have started to come back, however the patient states that she would like to go home and caudal with her cat . She understands the risks of and disability by leaving AGAINST MEDICAL ADVICE prior to completion of her workup. She initially reported mild chest pain, nitroglycerin and another aspirin were ordered for her. Patient states that her pain had resolved prior to admission of nitroglycerin, however she took the medications. She understands she can return to the emergency department at any time. SUPERVISED APC VISIT, PHYSICIAN ATTESTATION: Based on the medical record the care appears appropriate. ? Medical Records Data Attestation: I reviewed the patient's medical records. Lab Data Attestation: I reviewed the patient's lab results. Labs: Lab Results 02/20/25 Range/Units 16:55 WBC 9.7 (4.0-11.0) 10^3/uL RBC 4.72 (4.20-5.40) 10^6/uL Hgb 13.7 (12.0-16.0) g/dL Hct 40.9 (36.0-48.0) % MCV 86.7 (81.0-99.0) fL MCH 29.0 (26.7-34.0) pg MCHC 33.5 (29.9-35.2) g/dL RDW 13.5 (11.0-15.0) % Plt Count 348 (150-450) 10^3/uL MPV 9.2 L (9.5-13.5) fL Neut % (Auto) 71.1 (43.0-75.0) % Lymph % (Auto) 19.4 L (20.5-60.0) % [place] % (Auto) 6.7 (1.7-12.0) % Eos % (Auto) 1.7 (0.9-7.0) % Baso % (Auto) 0.7 (0.2-2.0) % Neut # (Auto) 6.9 H (1.4-6.5) 10^3/uL Lymph # (Auto) 1.9 (1.2-3.8) 10^3/uL [place] # (Auto) 0.7 (0.3-0.8) 10^3/uL Eos # (Auto) 0.2 (0.0-0.7) 10^3/uL Baso # (Auto) 0.1 (0.0-0.1) 10^3/uL Abs Immat Gran (auto) 0.04 H (0.00-0.03) 10^3/uL Imm/Tot Granulo (auto) 0.4 (0.0-0.5) % PT 10.5 (9.0-11.6) sec INR 0.99 ECG Data Attestation: I personally reviewed and interpreted this ECG as follows: (Normal sinus rhythm at a rate of [address] elevation or ectopy. EKG reviewed by attending physician) Heart Score History: Moderately Suspicious ECG: NS Repolarization Age: >45-<65 years Risk Factors: >3 Risk Factors/ HX of CAD:2 Discharge Plan Discharge Stand Alone Forms: Portal Instructions Chief Complaint: Chest Pain Clinical Impression: Chest pain Patient Disposition: Left Against Medical Advice Time of Disposition Decision: 17:36 Prescriptions / Home Meds: No Action guaifenesin [Mucinex] 600 mg tablet extended release 12hr 600 mg PO BID PRN (Reason: cough) Qty: 10 0RF acetaminophen [Tylenol 8 Hour] 650 mg tablet extended release 650 mg PO Q8H PRN (Reason: fever or pain) Qty: 20 0RF venlafaxine [Effexor XR] 150 mg capsule,extended release 24hr 150 mg PO QPM pravastatin 40 mg tablet 40 mg PO DAILY aripiprazole [Abilify] 10 mg tablet 10 mg PO DAILY losartan 25 mg tablet 25 mg PO DAILY hydrochlorothiazide 25 mg tablet 25 mg PO DAILY clindamycin HCl 300 mg capsule 300 mg PO Q6H 14 Days Qty: 56 0RF sulfamethoxazole-trimethoprim 800-160 mg tablet 1 tab PO BID 14 Days Qty: 28 0RF hydrocodone-acetaminophen 5-325 mg tablet 1 tab PO Q6H PRN (Reason: pain) 7 Days Qty: 28 0RF Xarelto 15 mg tablet 15 mg PO BID 21 Days Qty: 42 0RF Rx Instructions: must administer with a meal/food cyclobenzaprine 10 mg Tablet 10 mg PO TID PRN (Reason: leg pain) 10 Days Qty: 30 0RF Print Language: [place] Referrals: JULIO C JARRETT [Primary Care Provider] - 1 week Discharge Date/Time: 02/20/25 17:35
[2025-02-20 16:05] VITALS: PULSE 86
[2025-02-20] MEDS: ASPIRIN 81 MG TAB.CHEW PO (16:13)
[2025-02-20] MEDS: NITROGLYCERIN 0.4 MG BOTTLE SL (16:46)
[2025-02-20 17:05] LABS: Basophils Absolute Auto 0.1 10^3/uL (0.0-0.1); Basophils Percent Auto 0.7 % (0.2-2.0); Eosinophils Absolute Auto 0.2 10^3/uL (0.0-0.7); Eosinophils Percent Auto 1.7 % (0.9-7.0); Hematocrit 40.9 % (36.0-48.0); Hemoglobin 13.7 g/dL (12.0-16.0); Immature Granulocytes Abs Auto 0.04 10^3/uL (0.00-0.03); Immature Granulocytes Pct Auto 0.4 % (0.0-0.5); Lymphocytes Absolute Auto 1.9 10^3/uL (1.2-3.8); Lymphocytes Percent Auto 19.4 % (20.5-60.0); Mean Corpuscular HGB Conc 33.5 g/dL (29.9-35.2); Mean Corpuscular Volume 86.7 fL (81.0-99.0); Mean Platelet Volume 9.2 fL (9.5-13.5); Monocytes Absolute Auto 0.7 10^3/uL (0.3-0.8); Monocytes Percent Auto 6.7 % (1.7-12.0); Neutrophils Absolute Auto 6.9 10^3/uL (1.4-6.5); Neutrophils Percent Auto 71.1 % (43.0-75.0); Platelet Count 348 10^3/uL (150-450); Red Blood Count 4.72 10^6/uL (4.20-5.40); Red Cell Distribution Width 13.5 % (11.0-15.0); White Blood Count 9.7 10^3/uL (4.0-11.0)
[2025-02-20 17:20] LABS: INR 0.99; Prothrombin Time 10.5 sec (9.0-11.6)
[2025-02-20 17:34] LABS: Alanine Aminotransferase 46 U/L (14-59); Albumin Globulin Ratio 1.1; Alkaline Phosphatase 94 U/L (46-116); Anion Gap 13.6; Aspartate Amino Transferase 27 U/L (15-37); BUN Creatinine Ratio 9.7; Bilirubin Total 0.9 mg/dL (0.2-1.0); Calcium 9.6 mg/dL (8.5-10.1); Carbon Dioxide 26.1 mmol/L (21.0-32.0); Chloride 103 mmol/L (98-107); Estimated GFR (African America >60 (>=60 mL/min/1.73m^2); Estimated GFR (Non-African Ame 55 (>=60 mL/min/1.73m^2); Globulin 3.7 g/dL; Glucose 91 mg/dL (74-106); Potassium 3.7 mmol/L (3.5-5.1); Sodium 139 mmol/L (136-145); Total Protein 7.7 g/dL (6.4-8.2)
[2025-02-20 17:44] LABS: Thyroid Stimulating Hormone 0.954 uIU/mL (0.358-3.740); Troponin I High Sensitivity 8.5 pg/mL (4.0-51.3)
== END 2025-02-20 17:35 | disposition left against medical advice (07) ==
PROVIDERS: Emergency Provider Emergency Medicine; PCP Internal Medicine
DX: R07.9 Chest pain, unspecified (principal); Z53.29 Procedure and treatment not carried out because of patient's decision for other reasons; I10 Essential (primary) hypertension; E78.00 Pure hypercholesterolemia, unspecified; G24.01 Drug induced subacute dyskinesia
CPT/HCPCS: 36415; 71045; 80053; 83735; 83880; 84443; 84484; 85025; 85610; 93005; 99285

== ENCOUNTER 2025-07-22 16:55 | Emergency (ER) | payer OTHER, SELFPAY ==
--- OUTSIDE RECORDS SUMMARY | 2025-01-30 09:00 | XMS_ITS ---
Author Organization [facility] [place] Address [address] [place] [address] Care Team Providers Care Vocational Rehabilitation Consultant Name Role Phone Bunny Dillan TINEO Primary Care Provider Deng Brown Unavailable [phone] Allergies Allergen (clinical drug ingredient) Drug/Non Drug Allergy documented on EMR Reaction Allergy Type Onset Date Status Penicillin Unknown Drug Allergy Active REASON FOR VISIT increased pain in left foot Medications Medication SIG (Take, Route, Frequency, Duration) Notes Start Date End Date Status Crestor 20 MG 1 tablet Orally Once a day for 30 day(s) Active Gabapentin 300 MG 1 capsule Orally Onc e a day for 30 day(s) prn Active Vitamin D3 75 MCG (3000 UT) 1 tablet Ora lly Once a day for 90 days 05/05/2024 Active hydroCHLOROthiazide 12.5 MG 1 capsule in the morning Orally Once a day for 30 day(s) Active Lisinopril 10 MG 1 tablet Orally Once a day for 30 day(s) Active Sertraline HCl 100 MG Oral for 30 Days Active Abilify Active Ezetimibe 10 MG Oral for 30 Days Active hydrOXYzine HCl 50 MG Oral for 30 Days Active ARIPiprazole 5 MG Oral for 30 Days Active Clopidogrel Bisulfate 75 MG Oral for 30 Days Active Social History Tobacco Use: Social History Observation Description Date Details (start date - stop date) Never Smoker NA - NA Tobacco Use/Smoking Question Answer Notes Patient is a nonsmoker Vital Signs Height 65 in 01/30/2025 Temperature 97.2 degrees Fahrenheit 01/31/20 25 Heart Rate 74 /min 01/30/2025 Oximetry 97 % 01/30/2025 Encounters Encounter Location Date Provider Diagnosis [facility] (PODIATRY) [address] [place] [address] [place] [address] 01/30/2025 Deng Remy Left foot pain M79.672 and Rupture of left Achilles tendon, initial encounter S86.012A Assessments Encounter Date Diagnosis (ICD Code) Assessment Notes Treatment Notes Treatment Clinical Notes Section Notes 01/30/2025 Left foot pain (ICD-10 - M79.672) 01/30/2025 Rupture of left Achilles tendon, initial encounter (ICD-10 - S86.012A) Patient follows up for left Achilles injury consisting of open rupture from a work-related injury. Due to her weakness and pain she has developed a limp which has resulted in abnormal gait mechanics, left hip and low back pain. She has been going to a chiropractor which has not significantly helped. I recommended physical therapy for additional strengthening and gait mechanics as well as pain management given her increased numbness and tingling to her left forefoot. She is currently on gabapentin 300 mg 4 times a day and I am not comfortable increasing this or attempting a different medication therefore I believe she would be best helped with pain management.I again reviewed exercises she should be performing at home as well as massage. She will follow-up with me in 3 months call sooner if any problems arise Plan Of Treatment Treatment Notes Assessment Notes Rupture of left Achilles ten don, initial encounter Patient follows up for left Achilles inj ury consisting of open rupture from a work-related injury. Due to her weakness and pain she has developed a limp which has resulted in abnormal gait mechanics, left hip and low back pain. She has been going to a chiropractor which has not significantly helped. I recommended physical therapy for additional strengthening and gait mechanics as well as pain management given her increased numbness and tingling to her left forefoot. She is currently on gabapentin 300 mg 4 times a day and I am not comfortable increasing this or attempting a different medication therefore I believe she would be best helped with pain management.I again reviewed exercises she should be performing at home as well as massage. She will follow-up with me in 3 months call sooner if any problems arise Pending Test Test Name Order Date XR Foot LT (3 views) * 01/30/2025 Progress Notes * Yarelis SWENSON DDOB: [birth year] (55 yo F)Acc No.[id number]:01/30/2025 Patient: Yarelis ROCK Provider: Roxanne Remy DPM, MS :1970 A ge:55 Y S ex:Female Date:01/30/2025 Address:[address] [place] [address] [place], [id number] Pcp:Dillan Hollis, DO Check In:12:53 PM ESTCheck O ut:01:24 PM EST Subjective: * Chief Complaints: * I ncreased pain in left foot * HPI: G eneral: Patient returns to office today for increased pain to left foot. Most of her pain is heel and lateral foot. P ain level is currently 4/10 after walking rosen to come into office and get xrays, states increases with activity. Pain does resolve with rest however, it does get difficult at night to rest due to nerve pain. She does have numbness and tingling and feels that those symptoms have worsened over the past weeks. Her pain does have sharp/achy symptoms as well. She is currently taking gabapentin and tylenol as needed for pain. She relates to weakness, difficulty with balance and instability at times. She also relates that steps are difficult and she has to be careful when using them. She denies any falls or new injuries. She does state that her left hip is giving her problems due to limping and she consulted a chiropractor for an adjustment to help with her hip/back pain. * ROS: G eneral/Constitutional: Chills d enies. F ever d enies. W eight gain?denies. W eight loss d enies. S kin: Skin Ulcers d enies. S kin lesion(s) d enies. ? C ardiovascular: Difficulty breathing on exertion d enies. L eg cramps?denies. E vielka d enies. C hest pain d enies. R espiratory: Difficulty breathing d enies. D yspnea d enies.?Cough d enies. G astrointestinal: Diarrhea d enies. N ausea d enies. V omiting?denies. M usculoskeletal: Bone/Joint Symptoms d enies. C hal Pain d enies.?Leg cramps d enies. N eurologic: Numbness d enies. T ingling d enies . G ait abnormality d enies. ? H ematology: Anemia D enies. E asy bruising d enies. ? A ll Other Systems: Review of Systems (ROS) S ee HPI for details,All others negative except those mentioned in HPI. * Active Problem List S86.012D Strain of left Achil les tendon, subsequent encounter Modified On:08/25/2023U Status:confirmed S91.012D Laceration without f oreign body, left ankle, subsequent encounter Modified On:08/25/2023/U Status:confirmed S86.012A Rupture of left Achi lles tendon, initial encounter Modified On:03/07/2024U Status:confirmed I10 Hypertension Modified On:08/25/2023U Status:confirmed M25.572 Left ankle pain Modified On:05/05/2024U Status:confirmed M79.672 Left foot pain Modified On:05/18/2024U Status:confirmed * Medical History: * Surgical History: l eft open achilles tendon rupture with laceration 12/17/2022shoulder, bilateral rotator cuff repair Left secondary/revision Achilles tendon repair with flexor hallucis longus tendon transfer 04/29/2023Left Achilles tendon debridement, delayed primary closure of incision dehiscence 07/26/23 * Hospitalization/Major Diagno stic Procedure: s ee above * Family History: F ather: alive 84 yrs, diagnosed with Other malignant neoplasm of unspecified site. M other: alive 82 yrs. 1 brother(s) . . * Social History: T obacco Use: T obacco Use/Smoking P atient is a n onsmoker * Medications: T akingAbilify ARIPiprazole 5 MG Tablet Oral Clopidogrel Bisulfate 75 MG Tablet Oral Crestor(Rosuvastatin Calcium) 20 MG Tablet 1 tablet Orally Once a day Ezetimibe 10 MG Tablet Oral Gabapentin 300 MG Capsule 1 capsule Orally Once a day , Notes to Pharmacist: prnhydroCHLOROthiazide 12.5 MG Capsule 1 capsule in the morning Orally Once a day hydrOXYzine HCl 50 MG Tablet Oral Lisinopril 10 MG Tablet 1 tablet Orally Once a day Sertraline HCl 100 MG Tablet Oral Vitamin D3 75 MCG (3000 UT) Tablet 1 tablet Orally Once a day Taking Abilify Taking ARIPiprazole 5 MG Tablet Oral Taking Clopidogrel Bisulfate 75 MG Tablet Oral Taking Crestor(Rosuvastatin Calcium) 20 MG Tablet 1 tablet Orally Once a day Taking Ezetimibe 10 MG Tablet Oral Taking Gabapentin 300 MG Capsule 1 capsule Orally Once a day , Notes to Pharmacist: prnTaking hydroCHLOROthiazide 12.5 MG Capsule 1 capsule in the morning Orally Once a day Taking hydrOXYzine HCl 50 MG Tablet Oral Taking Lisinopril 10 MG Tablet 1 tablet Orally Once a day Taking Sertraline HCl 100 MG Tablet Oral Taking Vitamin D3 75 MCG (3000 UT) Tablet 1 tablet Orally Once a day DiscontinuedAlendronate Sodium 70 MG Tablet 1 tablet 30 minutes before the first food, beverage or medicine of the day with plain water Orally 1 Take one by mouth once weekly for 12 weeksMedication List reviewed and reconciled with the patientDiscontinued Alendronate Sodium 70 MG Tablet 1 tablet 30 minutes before the first food, beverage or medicine of the day with plain water Orally 1 Take one by mouth once weekly for 12 weeksMedication List reviewed and reconciled with the patient * Allergies: P enicillin: Allergyno[Allergies Verified] Objective: * Vitals: H t: 65 in, Temp:97.2F, HR:74/min, Pain scale:41-10, Oxygen sat %:97%, Ht-cm: 165.1 cm. * Examination: P odiatry Examination: SKIN: s kin intact, n o sign of infection. MUSCULOSKELETAL: M ild tenderness over the mid substance of the Achilles tendon which is thickened and scarred. There is weakness on plantarflexion on the left side compared to the right. Patient walks with and antalgic gait which lacks propulsion causing her to limp. Gait mechanics are consistent with calcaneal gait. NEUROLOGICAL: l ight touch sensation intact, n egative tinel's sign. Light touch sensation is altered to the forefoot on the left plantarly and dorsally.? VASCULAR: P edal pulses palpable, C apillaryrefill is brisk to toe, D igitalhair intact. W ere obtained and reviewed today which demonstrate intact cortices and no evidence of acute fracture or stress fracture. No significant deformity. Bone stock appears to be within normal limits. Assessment: * Assessment: 1. R upture of left Achilles tendon, initial encounter - S86.012A (Primary) 2 .?Left foot pain - M79.672 Plan: * Treatment: 2. L eft foot pain I maging: XR Foot LT (3 views) * * Procedure Codes: * * Sign off status: Completed Visit Status: C HK (Check Out) true * Provider: Roxanne Remy DPM, MS Date: 0 01/30/2025 Generated for Roel orosco/Gia/eTransmitting on: 0 07/22/2025 05:02 PM EDT History and Physical Notes * HPI (History of Present Illness) Category Sub-Category Detail Notes Category Not es General Patient returns to office today for increased pain to left foot. Most of her pain is heel and lateral foot. Pain level is currently 4/10 after walking rosen to come into office and get xrays, states increases with activity. Pain does resolve with rest however, it does get difficult at night to rest due to nerve pain. She does have numbness and tingling and feels that those symptoms have worsened over the past weeks. Her pain does have sharp/achy symptoms as well. She is currently taking gabapentin and tylenol as needed for pain. She relates to weakness, difficulty with balance and instability at times. She also relates that steps are difficult and she has to be careful when using them. She denies any falls or new injuries. She does state that her left hip is giving her problems due to limping and she consulted a chiropractor for an adjustment to help with her hip/back pain. Examination Category Sub-Category Detail Notes Category Not es Podiatry Examination SKIN: skin intact, no sign of infection Were obtained and reviewed today which demonstrate intact cortices and no evidence of acute fracture or stress fracture. No significant deformity. Bone stock appears to be within normal limits. MUSCULOSKELETAL: Mild tenderness over the mid substance of the Achilles tendon which is thickened and scarred. There is weakness on plantarflexion on the left side compared to the right. Patient walks with and antalgic gait which lacks propulsion causing her to limp. Gait mechanics are consistent with calcaneal gait NEUROLOGICAL: light touch sensatio n intact, negative tinel's sign. Light touch sensation is altered to the forefoot on the left plantarly and dorsally VASCULAR: Pedal pulses palpable, Capillary refill is brisk to toe, Digital hair intact
--- OUTSIDE RECORDS SUMMARY | 2025-02-05 10:01 | XMS_ITS ---
Author Organization The [facility] in [place] Address [address] [place] [address] Care Team Providers Care Money Room Teller Name Role Phone Dillan Hollis DO Primary Care Provider Deng Brown [phone] REASON FOR VISIT documentation Encounters Encounter Location Date Provider Diagnosis [facility] (PODIATRY) [address] [place] [address] [place] [address] 02/05/2025 Deng Remy Plan Of Treatment No Information Progress Notes * Yarelis SWENSON DDOB: [birth year] (55 yo F)Acc No.[id number]:02/05/2025 Patient: Lelo Yarelis MARTÍNEZ :1970 A ge:55 Y S ex:Female Address:[address] [place] [id number] * true * Date: Generated for Emeraldi kwesi/[place]af[place]/eTransmitting on: 0 07/22/2025 05:02 PM EDT
--- OUTSIDE RECORDS SUMMARY | 2025-06-19 10:00 | XMS_ITS ---
Author Organization [facility] in [place] Address [address] [place] [address] Care Team Providers Care Banker Mason Name Role Phone Dillan Hollis DO Primary Care Provider Deng Brown [phone] REASON FOR VISIT 6 month f/u Encounters Encounter Location Date Provider Diagnosis [facility] (PODIATRY) [address] [place] [address] [place] [address] 06/19/2025 Deng Remy Plan Of Treatment No Information Progress Notes * SWENSONYarelis DDOB: [birth year] (55 yo F)Acc No.[id number]:06/19/2025 UNLOCKED PROGRESS NOTE Patient: Yarelis ROCK Provider: Roxanne Remy DPM, MS :1970 A ge:55 Y S ex:Female Date:06/19/2025 Address:[address] [place], [place] [id number] Pcp:Dillan Hollis DO Subjective: * Chief Complaints: * 1 . 6 month f/u. * Medical History: Objective: * Vitals: Assessment: Plan: * Treatment: * * Electronic signature of Tee Remy DPM on 07/22/2025 at 05:01 PM EDT Sign off status: Pending Visit Status: C ANC (Cancelled) * Provider: Roxanne Remy DPM, MS Date: 06/19/2025 Generated for Printi ng/Faxing/eTransmitting on: 07/22/2025 05:01 PM EDT
--- OUTSIDE RECORDS SUMMARY | 2025-07-10 09:45 | XMS_ITS | Encounter Summary ---
Author Organization [facility] Address [address] [place] [address] Care Team Providers Care Warehouse Consultant Name Role Phone Darnell French MD Primary Care Provider [phone] Erum Hickman ORIENTAL RUG STRETCHER-HOUSE PLAYER Unavailable Reason for Visit * Reason Comments 6 month follow up of chronic conditions Encounter Details Date Type Department Care Team (Latest Contact Info) Description 07/10/2025 9:45 AM EDT Office Visit [facility] [address] [facility] [address] [place] [id number] Darnell French MD [address] [facility] [address] [place] [address] Essential hypertension (Primary Dx); Pure hypercholesterolemia ; Prediabetes; Moderate major depression (HCC); Generalized anxiety disorder ; Bipolar affective disorder, currently depressed, moderate (HCC); B12 deficiency; Obstructive sleep apnea syndrome; Cognitive impairment; Adrenal disease (HCC); Metabolic dysfunction-associated steatotic liver disease (MASLD); Tardive dyskinesia Social History Tobacco Use Types Packs/Day Years Used Date Smoking Tobacco: Never Smokeless Tobacco: Never Alcohol Use Standard Drinks/Week Comments Yes 0 (1 standard drink = 0.6 oz pure alcohol) caffeine: occasional coca cola, once in a while, 1 a day AUDIT-C Answer Date Recorded Q1: How often do you have a drink containing alc ohol? Monthly or less 02/14/2025 Q2: How many drinks containi ng alcohol do you have on a typical day when you are drinking? 1 or 2 02/14/2025 Q3: How often do you have si x or more drinks on one occasion? Never 02/14/2025 PHQ-2 Answer Date Recorded Patient Health Questionnaire-2 Score 0 02/14/2025 Exercise Vital Sign Answer Date Recorde d On average, how many days pe r week do you engage in moderate to strenuous exercise (like a brisk walk)? 2 days Minutes of Exercise per Session Not on file 04/02/2023 Education Answer Date Recorded What is the highest level of school you have completed or the highest degree you have received? 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 Yarelis Swenson is a 55 y.o. female presents with chief complaint of 6 month follow up of chronic conditions HPI: History of Present Illness The patient is a 55-year-old female here today for a routine appointment. Difficulty Swallowing Pills and Medication Discontinuation She has discontinued some of her medications, including her cholesterol medication due to difficulty swallowing large pills. She reports no leg aches from the medication. She was also prescribed another cholesterol medication, which she cannot recall, and baby aspirin. She is considering halving the pills to make them easier to swallow. - Onset: Difficulty swallowing large pills led to discontinuation of cholesterol medication. - Character: Difficulty swallowing large pills. - Alleviating Factors: Considering halving the pills to make them easier to swallow. Blood Pressure Medication Discontinuation She has been advised to stop her blood pressure medication. She reports no respiratory issues or chest pain. She does not use a CPAP machine but reports satisfactory sleep and feeling rested. - Alleviating Factors: Discontinuation of blood pressure medication. - Timing: Reports satisfactory sleep and feeling rested. Tongue Swelling and Suspected TIA She has been prescribed several medications by her billet heater operator, but they have not alleviated her tongue symptoms. She believes her tongue is swollen and suspects she may have had another TIA that has affected her speech, causing it to sound slurred. She has been informed by others that her speech sounds different. She was prescribed Benadryl, which did not provide relief. - Onset: Suspected TIA affecting speech. - Character: Swollen tongue and slurred speech. - Alleviating Factors: Benadryl did not provide relief. Hospital Visit for Throat Swelling and Difficulty Breathing She recalls a hospital visit where she was administered 25 mg of Benadryl intravenously for throat swelling and difficulty breathing, which provided approximately 80% relief. She has an upcoming appointment with Dr. Carreno at the end of 06/2025. - Onset: Throat swelling and difficulty breathing led to hospital visit. - Character: Throat swelling and difficulty breathing. - Alleviating Factors: 25 mg of Benadryl intravenously provided approximately 80% relief. Social History: Sleep: Reports satisfactory sleep and feeling rested. I have reviewed and reconciled the history and medication list with the patient today. HISTORIES: PAST MEDICAL HISTORY: Past Medical History: Diagnosis Date Adrenal disease (HCC) 05/07/2023 B12 deficiency 05/07/2023 Bipolar disorder (HCC) SHELDON study 07/2019 hospitalized Breast mass, right 2012- cat scratch fever Burning mouth syndrome Cognitive impairment 05/07/2023 Depression Esophageal erosions 05/07/2023 Functional visual loss 05/07/2023 Generalized anxiety disorder 04/02/2023 GERD (gastroesophageal reflux disease) History of multiple strokes 11/29/2023 Hx of colonic polyps Hyperlipidemia Hypertension Metabolic dysfunction-associated steatotic liver disease (MASLD) 05/07/2023 Migraines TIFFANIE on CPAP Peripheral neuropathy 05/07/2023 Pharyngoesophageal dysphagia 10/04/2023 Prediabetes 08/11/2023 Primary osteoarthritis involving multiple joints 11/29/2023 Restless leg syndrome Tardive dyskinesia 01/18/2025 TIA (transient ischemic attack) 11/2017 Tumor, foot [...] Topics Alcohol use: Yes Comment: caffeine: occasional coca cola, once in a while, 1 a day Drug use: Never Depression: Not at risk (02/14/2025) PHQ-2 PHQ-2 Score: 0 FAMILY HISTORY: Family History Problem Relation Name Age of Onset No Known Problems Mother Heart disease Father Stroke Father Alzheimer's disease Father Dementia Father No Known Problems Brother Breast cancer Mother's Sister No Known Problems Daughter No Known Problems Son Colon cancer Neg Hx Ovarian cancer Neg Hx MEDICATIONS: Current Outpatient Medications Medication Instructions Acetaminophen (TYLENOL 8 HOUR PO) Aspirin Low Dose 81 mg, Daily Austedo XR 36 mg, Oral, Daily cetirizine (ZYRTEC) 20 mg, Oral, 2 times daily cyanocobalamin (VITAMIN B-12) 500 mcg, Oral, Daily famotidine (PEPCID) 20 mg, Oral, 2 times daily gabapentin (Neurontin) 800 MG tablet TAKE 1 TABLET BY MOUTH EVERY MORNING, THEN 1 TABLET BY MOUTH IN THE AFTERNOON AND TAKE 1 TABLET BY MOUTH EVERY NIGHT AT BEDTIME hydrOXYzine HCl (ATARAX) 50 mg, Oral, 2 times daily PRN hydrOXYzine pamoate (VISTARIL) 25 mg, Oral, Nightly montelukast (SINGULAIR) 10 mg, Oral, Nightly rosuvastatin (CRESTOR) 10 mg, Oral, Daily sertraline (ZOLOFT) 100 mg, Oral, Daily triamcinolone (Kenalog) 0.1 % lotion Topical, 2 times daily, Applied to affected areas on the scalptwice daily for 10 days followed by once daily for 10 days and then twice weekly. ALLERGIES: Allergies Allergen Reactions Losartan Angioedema Swelling of tongue Amoxicillin Hives Bupropion Other Reaction(s): caused made me feel weird drowsiness, lack of motivation Oxycodone GI intolerance PHYSICAL EXAM: Visit Vitals BP 108/70 Pulse 88 Ht 5' 5 Wt 190 lb SpO2 97% BMI 31.62 kg/m?? OB Status Postmenopausal Smoking Status Never BSA 1.99 m?? BP Readings from Last 3 Encounters: 07/10/25 108/70 06/26/25 110/80 06/25/25 116/68 Wt Readings from Last 3 Encounters: 07/10/25 190 lb 07/02/25 190 lb 06/26/25 187 lb Physical Exam HENT: Mouth/Throat: Mouth: Mucous membranes are dry. Pharynx: No oropharyngeal exudate. Cardiovascular: Rate and Rhythm: Normal rate and [...] Psychiatric: Thought Content: Thought content normal. Results Labs - Total Cholesterol: 330 mg/dL - Triglycerides: 425 mg/dL - LDL: 189 mg/dL - A1c: 5.9% - Vitamin B12: Low - Kidney Function: Slightly decreased - Liver Function: Normal - Electrolytes: Normal ASSESSMENT AND PLAN: Assessment & Plan 1. Essential hypertension (Primary) Hypertension: Stable. - No changes in medication necessary at this time. - Lipid panel; Future - Comprehensive metabolic panel; Future - Lipid panel - Comprehensive metabolic panel 2. Pure hypercholesterolemia Hypercholesterolemia: Chronic. Cholesterol levels are significantly elevated: total cholesterol 330, triglycerides 425, LDL 189. - Prescription for rosuvastatin 10 mg will be given. - Cholesterol levels will be rechecked during the next visit. - Lipid panel; Future - Lipid panel - rosuvastatin (Crestor) 10 MG tablet; Take 1 tablet (10 mg) by mouth Daily Dispense: 30 tablet; Refill: 5 3. Prediabetes Prediabetes: Stable. A1c is 5.9. - No changes in medication necessary at this time. - Advised to monitor blood sugar levels. 4. Moderate major depression (HCC) Doing well. Continue current regimen. Follows with Psych. 5. Generalized anxiety disorder As above. 6. Bipolar affective disorder, currently depressed, moderate (HCC) - Currently taking sertraline 100 mg daily. - No changes to this medication necessary at this time. - sertraline (Zoloft) 100 MG tablet; Take 1 tablet (100 mg) by mouth Daily 7. B12 deficiency B12 deficiency: Chronic. - Advised to start [id number] vitamin B12 supplements. - cyanocobalamin (Vitamin B-12) 500 MCG tablet; Take 1 tablet (500 mcg) by mouth Daily 8. Obstructive sleep apnea syndrome Does not wear CPAP. Feels well rested. Continue to monitor. 9. Cognitive impairment Stable. Continue to monitor. 10. Adrenal disease (HCC) Stable. Continue to monitor. 11. Metabolic dysfunction-associated steatotic liver disease (MASLD) Stable. Continue to monitor. 12. Tardive dyskinesia Tardive dyskinesia: Chronic. - New cholesterol medication prescribed with consideration for this condition to ensure ease of ingestion. - Tongue issues following with [employer]. Follow-up - Next scheduled visit. Patient was seen and examined with Rhiannon Alex CNP. History was confirmed and verified. Christiansen elements of the exam were also completed. Assessment and plan were reviewed and addended as needed. Agree with documentation above. documented in this encounter Plan of Treatment Upcoming Encounters Date Type Department Care Team (Late st Contact Info) Description 07/23/2025 11:20 AM EDT Office Visit [facility] [address] [place] [phone] Milton Arriaga MD [address] [place] [address] 08/27/2025 10:30 AM EDT Office Visit [facility] [address] [place] [address] Erum Hickman, ORIENTAL RUG STRETCHER-[facility] [address] [place] [address] 10/17/2025 11:30 AM EST Office Visit [facility] [address] [place] [address] Jacquie Velasco, ORIENTAL RUG STRETCHER-UPSCALE SECURITY OFFICER [address] [facility] [place] [address] 01/10/2026 9:45 AM EST Office Visit [facility] [place] [facility] [address] [place] [phone] Scheduled Orders Name Type Priority Associated Diagnoses Orde r Schedule Lipid panel Lab Routine Essential hypertension Pure hypercholesterolemia Expected: 01/06/2026 (Approximate), Expires: 07/05/2026 Comprehensive metabolic panel Lab Routine Essential hypertension Expected: 01/06/2026 (Approximate), Expires: 07/05/2026 documented as of this encounter Visit Diagnoses Diagnosis Essential hypertension- Primary Unspecified essential hypertension Pure hypercholesterolemia Pure hypercholesterolemia Prediabetes Other abnormal glucose Moderate major depression (HCC) Major depressive disorder, single episode, moderate Generalized anxiety disorder Generalized anxiety disorder Bipolar affective disorder, currently depressed, moderate (HCC) Bipolar I disorder, most recent episode (or current) depressed, moderate B12 deficiency Obstructive sleep apnea syndrome Obstructive sleep apnea (adult) (pediatric) Cognitive impairment Unspecified persistent mental disorders due to conditions classified elsewhere Adrenal disease (HCC) Unspecified disorder of adrenal glands Metabolic dysfunction-associated steatotic liver disease (MASLD) Tardive dyskinesia Subacute dyskinesia due to drugs documented in this encounter Additional Health Concerns Assessment Noted Time PHQ-9 Depression Total Score: 0 02/13/20 25 1:08 PM EDT documented as of this encounter Care Teams Warehouse Consultant Relationship Specialty Start Date End Date Darnell French MD [address] [facility] [address] [place] [address] PCP - General Internal Medicine 05/04/23 Erum Hickman APRN-HOUSE PLAYER [address] [facility] [address] [place] [address] Nurse Practitioner Psychiatry 12/15/24 documented as of this encounter
--- OUTSIDE RECORDS SUMMARY | 2025-07-16 12:00 | XMS_ITS | Encounter Summary ---
Author Organization [facility] Address [address] [place] [address] Care Team Providers Care Tariff Compiling Clerk Name Role Phone Darnell French MD Primary Care Provider [phone] Gillian-Erum Montero DISTRICT CAPTAIN-NATUROPATHIC PHYSICIAN Unavailable Encounter Details Date Type Department Care Team (Late st Contact Info) Description 07/16/2025 12:00 PM EDT Office Visit [facility] [address] [place] [address] Erum Plasencia, PRODUCTION CONTROL SCHEDULER [address] , [facility] [address] [place] [address] Tardive dyskinesia (Primary Dx); Migraine without aura and without status migrainosus, not intractable Social History Tobacco Use Types Packs/Day Years [...] Sign Reading Time Taken Comments Blood Pressure 120/82 07/16/2025 12:16 PM EDT Pulse - - Temperature - - Respiratory Rate - - Oxygen Saturation - - Inhaled Oxygen Concentration - - Weight 81.6 kg (180 lb) 07/16/2025 12:16 PM EDT Height 165.1 cm (5' 5 ) 07/16/2025 12:16 PM EDT Body Mass Index 29.95 07/16/2025 12:16 PM EDT documented in this encounter Progress Notes * Erum Plasencia NP - 07/16/2025 12:00 PM EDT Images from the original note were not included. CHIEF COMPLAINT REASON FOR VISIT : Patient is here today for follow-up of the diagnosis below. I amfollowing the plan of care established by Dr Flores, 04/2025, who is present in the office today HPI: TARDIVE DYSKINESIAS -She has constant involuntary movement of her tongue and right leg. -Her tongue swells up and she has a hard time talking. -medicine is helping -She takes benadryl for the tongue swelling which helps. Has seen gate agent and had allergy testingwhich was neg. He gave her 4 meds with no changes. She follows up on 07/23/25 -She denies any twitching of her eye. -If she thinks about it she can stop it sometimes. -If she has something in her mouth it does not occur. -She is now having issues with the movement interfering with sleep. When she walks her right hand will fist and sometimes her thumb will extend. -Her right face will droop at times. -The movement is not worse at any particular time of day. -She denies any definite triggers. -Abilify was stopped in 04/2024. RLS -legs move at night frequently -keeps her awake -Gabapentin does help and dose was just increased by PCP NEUROPATHY -She has neuropathy but denies any new paresthesias. -She takes gabapentin and states the neuropathy is controlled. -She does feel like she has balance issues that are more notable in the evening. No falls reported. HEADACHES -Headaches are rare. CURRENT MEDICATIONS: ALLERGIES/DISCONTINUE MEDICATIONS Current Outpatient Medications Medication Instructions Acetaminophen (TYLENOL 8 HOUR PO) Aspirin Low Dose 81 mg, Daily atorvastatin (LIPITOR) 80 mg, Daily Austedo XR 36 mg, Oral, Daily cetirizine (ZYRTEC) 20 mg, Oral, 2 times daily famotidine (PEPCID) 20 mg, Oral, 2 times daily gabapentin (Neurontin) 800 MG tablet TAKE 1 TABLET BY MOUTH EVERY MORNING, THEN 1 TABLET BY MOUTH IN THE AFTERNOON AND TAKE 1 TABLET BY MOUTH EVERY NIGHT AT BEDTIME hydroCHLOROthiazide (HYDRODiuril) 25 MG tablet TAKE 1 TABLET BY MOUTH DAILY IN THE MORNING hydrOXYzine HCl (ATARAX) 50 mg, Oral, 2 times daily PRN hydrOXYzine pamoate (VISTARIL) 25 mg, Oral, Nightly ibuprofen 600 MG tablet Every 8 hours PRN losartan (COZAAR) 25 mg, Oral, Daily montelukast (SINGULAIR) 10 mg, Oral, Nightly predniSONE (Deltasone) 10 MG tablet Day 1-2 take 4 tabs orally by mouth once daily. Day 3-4 take 3 tabs. Day 5-6 take 2 tabs. Day 7-8 take 1 tab. Once daily for 8 days. sertraline (ZOLOFT) 100 mg, Oral, Daily triamcinolone (Kenalog) 0.1 % lotion Topical, 2 times daily, Applied to affected areas on the scalptwice daily for 10 days followed by once daily for 10 days and then twice weekly. Allergies Allergen Reactions Losartan Angioedema Swelling of tongue Amoxicillin Hives Bupropion Other Reaction(s): caused made me feel weird drowsiness, lack of motivation Oxycodone GI intolerance There are no discontinued medications. PAST MEDICAL HISTORY: SURGICAL/SOCIAL/FAMILY HISTORY DEPRESSION SCREEN: Past Medical History: Diagnosis Date Arthritis Bipolar disorder (HCC) SHELDON study 07/2019 hospitalized Breast mass, right 2012- cat scratch fever Burning mouth syndrome COVID 03/2021 hospitalized Depression Epistaxis Family history of cancer GERD (gastroesophageal reflux disease) H/O Achilles tendon repair Hx of colonic polyps Hyperlipidemia Hypertension Migraines TIFFANIE on CPAP Restless leg syndrome TIA (transient ischemic attack) 11/2017 Tumor, foot Past Surgical History: Procedure Laterality Date ANKLE SURGERY Left 2022 x3 COLONOSCOPY 05/31/2018 EGD 09/21/2022 EXCISION cat scratch fever;Disease:Right Breast mass EXCISION Disease:tumor foot MR ANGIOGRAM HEAD WO IV CONTRAST 11/02/2022 MR ANGIOGRAM HEAD WO IV CONTRAST [facility] MR ANGIOGRAM HEAD WO IV CONTRAST 02/01/2018 MR ANGIOGRAM HEAD WO IV CONTRAST 02/01/2018 OTHER SURGICAL HISTORY laparoscopy OTHER SURGICAL HISTORY 08/2022 yariel galeck ROTATOR CUFF REPAIR Right 2017 ROTATOR CUFF REPAIR Left 08/07/2020 and distal clavicle resection, Dr. Anderson TENDON REPAIR Left 11/2022 achilles TUBAL LIGATION Social History Tobacco Use Smoking status: Never Smokeless tobacco: Never Vaping Use Vaping status: Never Used Substance Use Topics Alcohol use: Yes Comment: caffeine: occasional coca cola, once in a while, 1 a day Drug use: Never Family History Problem Relation Name Age of Onset No Known Problems Mother Heart disease Father Stroke Father Alzheimer's disease Father Dementia Father No Known Problems Brother Breast cancer Mother's Sister No Known Problems Daughter No Known Problems Son Colon cancer Neg Hx Ovarian cancer Neg Hx Depression: Not at risk (02/14/2025) PHQ-2 PHQ-2 Score: 0 REVIEW OF SYMPTOMS: Review of Systems Constitutional: Negative for chills and fever. HENT: Positive for trouble swallowing. Negative for congestion. Eyes: Negative for visual disturbance. Respiratory: Negative for cough and shortness of breath. Cardiovascular: Negative for chest pain and palpitations. Gastrointestinal: Negative for abdominal pain, nausea and vomiting. Genitourinary: Negative for difficulty urinating. Musculoskeletal: Positive for back pain, gait problem and neck pain. Skin: Negative for rash. Neurological: Positive for weakness. Negative for dizziness, light-headedness and headaches. Had achilles tendon on the left Psychiatric/Behavioral: Positive for sleep disturbance. OBJECTIVE: 07/02/2025 9:16 AM 06/26/2025 2:39 PM 06/25/2025 9:46 AM Vitals BMI 31.62 kg/m2 31.12 kg/m2 31.12 kg/m2 BSA (m2) 1.99 m2 1.97 m2 1.97 m2 Systolic 110 116 Diastolic 80 68 Heart Rate 61 Height (in) 5' 5 Weight (lb) 190 187 187 Visit Report Report Report Report EXAM: Neurological Exam Mental Status Awake, alert and oriented to person, place and time. Recent and remote memory are intact. Speech isnormal. Language is fluent with no aphasia. Attention and concentration are normal. Fund of knowledge is appropriate for level of education. Cranial Nerves CN II: Visual acuity is normal. Visual benz full to confrontation. CN III, IV, : Extraocular movements intact bilaterally. Normal lids and orbits bilaterally. Pupils equal round and reactive to light bilaterally. CN V: Facial sensation is normal. CN VII: Full and symmetric facial movement. CN VIII: Hearing is normal. CN IX, X: Palate elevates symmetrically. Normal gag reflex. CN XI: Shoulder shrug strength is normal. CN XII: Tongue midline without atrophy or fasciculations. Rhythmic movement of the tongue noted. Looks large. . Sensory Light touch is normal in upper and lower extremities. Pinprick is normal in upper and lower extremities. Temperature is normal in upper and lower extremities. Vibration is normal in upper and lower extremities. Coordination Right: Osedhk-ii-[id number] normal. Rapid alternating movement normal. Jlno-ul-ntsk normal.Left: Nhstmc-mj-bubt normal. Rapid alternating movement normal. Zika-qw-uoml normal. Gait Normal casual, toe, heel and tandem gait. PROCEDURE: NONE ASSESSMENT AND PLAN: EVALUATION: 01/2025 CBC, CMP normal. TSH 0.95. 2023 B12 359 12/2023 MRI Brain showed scattered foci of white matter changes and mild atrophy ASSESSMENT 55 y.o. female who presents for evaluation of tardive dyskinesias. Medical history includes arthritis, burning mouth syndrome, COVID-19, depression, GERD, hyperlipidemia, hypertension, migraine headaches, sleep apnea - untreated, and TIA. She is also diagnosed with bipolar affective disorder and generalized anxiety. She follows with behavioral health who referred her to us for tardive dyskinesia.She is on hydroxyzine and valbenazine. She has persistent movement in her mouth as well as her right side with recent involvement of her right arm. She states the Ingrezza helped initially but not asmuch recently. We will change her to Austedo to see if this gives her more relief. Diagnoses and all orders for this visit: Tardive dyskinesia Migraine without aura and without status migrainosus, not intractable PLAN: Continue Austedo 30mg XR. Started request for patient assistance. Will see if we can get samples We can consider baclofen Continue gabapentin 800mg TID I counseled the patient on the possible diagnosis, prognosis, and possible treatment options. I will see the patient back in 3-4 months, or sooner if needed, to make further recommendations documented in this encounter Plan of Treatment Upcoming Encounters Date Type Department Care Team (Late st Contact Info) Description 07/23/2025 11:20 AM EDT Office Visit [facility] [address] [facility] [address] [place] [address] Milton Arriaga MD [address] [facility] [address] [place] [address] 08/27/2025 10:30 AM EDT Office Visit [facility] [address] [facility] [address] [place] [address] Erum Hickman, MARK-NATUROPATHIC PHYSICIAN [address] [facility] [address] [place] [address] 10/17/2025 11:30 AM EST Office Visit [facility] [address] [place] [phone] Jacquie Velasco, DISTRICT CAPTAIN-CUTTING PRESSMAN [address] [facility] [place] [address] 01/10/2026 9:45 AM EST Office Visit [facility] [address] [facility] [address] [place] [address] documented as of this encounter Visit Diagnoses Diagnosis Tardive dyskinesia- Primary Subacute dyskinesia due to drugs Migraine without aura and without status migrainosus, not intractable documented in this encounter Additional Health Concerns Assessment Noted Time PHQ-9 Depression Total Score: 0 02/13/20 1:08 PM EDT documented as of this encounter Care Teams Tariff Compiling Clerk Relationship Specialty Start Date End Date Darnell French MD [address] [facility] [address] [place] [address] PCP - General Internal Medicine 05/04/23 Erum Hickman APRN-NATUROPATHIC PHYSICIAN [address] [facility] [address] [place] [address] Nurse Practitioner Psychiatry 12/15/24 documented as of this encounter
--- OUTSIDE RECORDS SUMMARY | 2025-07-22 17:01 | XMS_ITS | Clinical Summary ---
Author Organization [facility] Address [address] [place] [address] Care Team Providers Care Modern Dancer Name Role Phone Darnell French MD Primary Care Provider [phone] Gillian-Erum Montero TRANSMISSION TESTER-TAX INTERN Unavailable Allergies Active Allergy Reactions Criticality Noted Date Comments Amoxicillin Hives Low 04/02/2023 Bupropion Low 04/02/2023 Other Reaction(s): caused made me feel weird drowsiness, lack of motivation Losartan Angioedema 06/05/2025 Swelling of tongue Oxycodone GI intolerance Low 01/21/2024 Medications Acetaminophen (TYLENOL 8 HOUR PO) Active Aspirin Low Dose 81 MG EC tablet Take 81 mg by mouth Daily 2023 Active hydrOXYzine HCl (Atarax) 50 MG tabletIndications:Gene ralized anxiety disorder Take 1 tablet (50 mg) by mouth 2 (two) times a day as needed for anxiety 60 tablet 2 2024 Active Deutetrabenazine ER (Austedo XR) 36 MG tablet sustained-release 24 hourIndications:Tardiv e dyskinesia Take 36 mg by mouth Daily 30 tablet 11 05/21 Active Additional Information Patient taking differently: 30 mgOral Daily, Reported on 07/16/2025 gabapentin (Neurontin) 800 MG tabletIndications:Idio pathic peripheral neuropathy TAKE 1 TABLET BY MOUTH EVERY MORNING, THEN 1 TABLET BY MOUTH IN THE AFTERNOON AND TAKE 1 TABLET BY MOUTH EVERY NIGHT AT BEDTIME 90 tablet 2024 Active cetirizine (ZyrTEC) 10 MG tabletIndications: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 360 tablet 3 07/02 Active Additional Information Patient not taking.Reported on 07/16/2025 montelukast (Singulair) 10 MG tabletIndications:Tiffanie oedema, initial encounter Take 1 tablet (10 mg) by mouth at bedtime 90 tablet 3 07/02 Active famotidine (Pepcid) 20 MG tabletIndications:Tiffanie oedema, initial encounter Take 1 tablet (20 mg) by mouth in the morning and 1 tablet (20 mg) before bedtime. 180 tablet 3 07/02 Active Additional Information Patient not taking.Reported on 07/16/2025 hydrOXYzine pamoate (Vistaril) 25 MG capsuleIndications:Ang ioedema, initial encounter Take 1 capsule (25 mg) by mouth at bedtime 90 capsule 3 07/02 Active triamcinolone (Kenalog) 0.1 % lotionIndications:Atop ic dermatitis in adult Apply topically in the morning and before bedtime. Applied to affected areas on the scalp twice daily for 10 days followed by once daily for 10 days and then twice weekly. 60 mL 4 2024 Active cyanocobalamin (Vitamin B-12) 500 MCG tabletIndications:B12 deficiency Take 1 tablet (500 mcg) by mouth Daily 07/10 Active sertraline (Zoloft) 100 MG tabletIndications:Bipo lar affective disorder, currently depressed, moderate (HCC) Take 1 tablet (100 mg) by mouth Daily 07/10 Active rosuvastatin (Crestor) 10 MG tabletIndications:Pure hypercholesterolemia Take 1 tablet (10 mg) by mouth Daily 30 tablet 5 01/06 Active venlafaxine XR (Effexor XR) 150 MG 24 hr capsule Take 150 mg by mouth in the morning. Discontinued ( Therapy completed) ibuprofen 600 MG tablet Take by mouth every 8 (eight) hours if needed 07/10 Discontinued( Therapy completed) atorvastatin (Lipitor) 80 MG tablet Take 80 mg by mouth Daily 07/10 Discontinued( Therapy completed) hydroCHLOROthiazide (HYDRODiuril) 25 MG tabletIndications:Hype rtension, unspecified type TAKE 1 TABLET BY MOUTH DAILY IN THE MORNING 30 tablet 10 06/28 Discontinued ezetimibe (Zetia) 10 MG tabletIndications:Pure hypercholesterolemia TAKE 1 TABLET BY MOUTH ONCE DAILY 90 tablet 3 06/25 Discontinued( Therapy completed) valbenazine tosylate (Ingrezza) 80 MG capsule Take 1 capsule by mouth at bedtime VO script given 02/12 Discontinued( Ineffective) sertraline (Zoloft) 100 MG tabletIndications:Bipo lar affective disorder, currently depressed, moderate (HCC) Take 1 tablet (100 mg) by mouth Daily 30 tablet 2 06/25 Discontinued( Reorder) gabapentin (Neurontin) 600 MG tabletIndications:Idio pathic peripheral neuropathy TAKE 1 TABLET BY MOUTH EVERY MORNING, THEN HALF A TABLET BY MOUTH IN THE AFTERNOON AND TAKE 1.5 TABLET BY MOUTH EVERY NIGHT AT BEDTIME 90 tablet 2 06/26 Discontinued( Reorder) predniSONE (Deltasone) 10 MG tabletIndications:Tong ue swelling Day 1-2 take 4 tabs orally by mouth once daily. Day 3-4 take 3 tabs. Day 5-6 take 2 tabs. Day 7-8 take 1 tab. Once daily for 8 days. 20 tablet 07/10 Discontinued( Therapy completed) sertraline (Zoloft) 100 MG tabletIndications:Bipo lar affective disorder, currently depressed, moderate (HCC) Take 1 tablet (100 mg) by mouth Daily 30 tablet 2 07/10 Discontinued( Therapy completed) losartan (Cozaar) 25 MG tabletIndications:Hype rtension, unspecified type TAKE 1 TABLET BY MOUTH ONCE DAILY 90 tablet 3 07/10 Discontinued( Therapy completed) hydroCHLOROthiazide (HYDRODiuril) 25 MG tabletIndications:Hype rtension, unspecified type TAKE 1 TABLET BY MOUTH DAILY IN THE MORNING 90 tablet 3 07/10 Discontinued( Therapy completed) Rosuvastatin Calcium (Ezallor Sprinkle) 40 MG capsule sprinkleIndications:Pu re hypercholesterolemia,T ardive dyskinesia Take 40 mg by mouth at bedtime 30 capsule 5 07/10 Discontinued( Therapy completed) rosuvastatin (Crestor) 40 MG tabletIndications:Pure hypercholesterolemia Take 1 tablet (40 mg) by mouth Daily 30 tablet 5 07/10 Discontinued Active Problems Problem Noted Date Diagnosed Date History of TIA (transient ischemic attack) 07/12 Tardive dyskinesia 01/18/2025 Mouth sores 05/27/2024 Pure hypercholesterolemia 11/29/2023 Primary osteoarthritis involving multiple joints 11/29/2023 History of migraine headaches 11/29/2023 Pharyngoesophageal dysphagia 10/04/2023 Porokeratosis 10/04/2023 Tear of left rotator cuff 10/04/2023 Moderate major depression 08/11/2023 Prediabetes 08/11/2023 Essential hypertension 08/11/2023 GERD (gastroesophageal reflux disease) Assessment & Plan (06/21/2023 5:25 PM EDT): Denies any symptoms in the last week or two. Could consider EGD if cardiac work up comes back negative. Cognitive impairment 05/07/2023 Assessment & Plan (06/21/2023 4:30 PM EDT): We discussed she hasn't noticed improvement in her function after starting the biotin, Strattera, or magnesium. She will discuss stopping these with Dr. Flores. Esophageal erosions 05/07/2023 B12 deficiency 05/07/2023 Adrenal disease 05/07/2023 Metabolic dysfunction-associ ated steatotic liver disease (MASLD) 05/07/2023 Functional visual loss 05/07/2023 Peripheral neuropathy 05/07/2023 Bipolar affective disorder, currently depressed, moderate 04/02/2023 Assessment & Plan (06/21/2023 5:26 PM EDT): Recommended that she resume her effexor. Coordinated with Erum. Reports increase in anxiety since she stopped the medication. Generalized anxiety disorder 04/02/2023 TIFFANIE on CPAP Resolved Problems Problem Noted Date Diagnosed Date Resolved Date Acute CVA (cerebrovascular accident) 01/28/2024 01/28/2024 Gastroesophageal reflux dise ase with esophagitis without hemorrhage 08/11/2023 Stage 3a chronic kidney disease 08/11/2023 08/17/2023 Chest pain 06/21/2023 08/11/2023 Assessment & Plan (06/21/2023 5:27 PM EDT): This has been a complaint off and on for the last year. Symptoms come on at rest. Does not seem like a cardiac story. However, she had a CVA. No recent stress test. I would recommend we start the cardiac work up to rule this out first. Then adjust from there. BP (high blood pressure) 06/21/2023 Assessment & Plan (06/21/2023 5:27 PM EDT): Hold off on adjusting medication at this point. Will get her back on her meds and then adjust from there. Encounters Date Type Department Care Team Description 07/22/2025 Refill [facility] [address] [place] [address] Olimpia Sim PA Idiopathic peripheral neuropathy 07/16/2025 12:00 PM EDT Office Visit [facility] [address] [place] [address] Erum Plasencia NP Tardive dyskinesia (Primary Dx); Migraine without aura and without status migrainosus, not intractable 07/16/2025 Bamboo flowsheet [facility] [address] [facility] [place] [place] [address] Erum Plasencia NP 07/16/2025 Travel 07/10/2025 9:45 AM EDT Office Visit [facility] [address] [place] [address] Darnell French MD Essential hypertension (Primary Dx); Pure hypercholesterolemia ; Prediabetes; Moderate major depression (HCC); Generalized anxiety disorder ; Bipolar affective disorder, currently depressed, moderate (HCC); B12 deficiency; Obstructive sleep apnea syndrome; Cognitive impairment; Adrenal disease (HCC); Metabolic dysfunction-associated steatotic liver disease (MASLD); Tardive dyskinesia 07/10/2025 Travel 07/02/2025 10:00 AM EDT Office Visit [facility] [address] [place] [address] Milton Arriaga MD Angioedema, initial encounter (Primary Dx); Chronic rhinitis; Flexural atopic dermatitis; Atopic dermatitis in adult; Tongue swelling; Idiopathic angioedema, initial encounter 07/02/2025 Bamboo flowsheet [facility] [address] [place] [address] Milton Arriaga MD 07/02/2025 Travel 06/27/2025 Refill [facility] [address] [place] [address] Darnell French MD Hypertension, unspecified type 06/26/2025 2:30 PM EDT Office Visit [facility] [address] [place] [address] Olimpia Sim PA Tongue swelling (Primary Dx); Tardive dyskinesia; Essential hypertension ; Idiopathic angioedema, initial encounter; Stage 3a chronic kidney disease (CMS-HCC); Idiopathic peripheral neuropathy 06/26/2025 Travel 06/25/2025 10:00 AM EDT Office Visit [facility] [address] [place] [address] Erum Hickman, TRANSMISSION TESTER-TAX INTERN Bipolar affective disorder, currently depressed, moderate (HCC) 06/25/2025 Travel 06/05/2025 2:45 PM EDT Office Visit [facility] [address] [place] [phone] Olimpia Sim PA Essential hypertension (Primary Dx); Tongue swelling; Tardive dyskinesia 06/05/2025 Travel 06/05/2025 Telephone [facility] [address] [place] [address] Erum Plasencia QUALITY CONTROL ENGINEER 05/21/2025 12:20 PM EDT Office Visit [facility] [address] [place] [address] Erum Plasencia, JUN Tardive dyskinesia (Primary Dx) 05/21/2025 Bamboo flowsheet [facility] [address] [place] [phone] Erum Plasencia NP 05/21/2025 Travel 05/04/2025 Refill [facility] [address] [place] [address] Jacquie Yip NP Idiopathic peripheral neuropathy 05/01/2025 3:00 PM EDT Office Visit [facility] [address] [facility] [address] [place] [address] Erum Hickman, TRANSMISSION TESTER-TAX INTERN Bipolar affective disorder, currently depressed, moderate (HCC); Generalized anxiety disorder 05/01/2025 Travel from Last 3 Months Immunizations Immunization Administration Dates Next Due Influenza, injectable, MDCK, preservative free, quadrivalent 11/30/2023,08/25/2022 Influenza, injectable, quadrivalent 09/16/2020,1 Influenza, injectable, quadrivalent, preservativ e free 12/09/2017 Moderna SARS-CoV-2 Vaccination 04/05/2021 Family History Medical History Relation Name Comments No Known Problems Brother No Known Problems Daughter Alzheimer's disease Father Dementia Father Heart disease Father Stroke Father No Known Problems Mother Breast cancer Mother's Sister No Known Problems Son Colon cancer Neg Hx Ovarian cancer Neg Hx Relation Name Status Comments Brother 1 brother Daughter Alive 1 daughter Father Alive Maternal Grandfather Maternal Grandmother Mother Alive Mother's Sister breast cance r Paternal Grandfather Paternal Grandmother Sibling Alive Son Alive 1 son Social History Tobacco Use Types Packs/Day Years Used Date Smoking Tobacco: Never Smokeless Tobacco: Never Tobacco Cessation:Counseling Given: Not Answered Alcohol Use Standard Drinks/Week Comments Yes 0 [...] Not o n file Not on file Last Filed Vital Signs Vital Sign Reading Time Taken Comments Blood Pressure 120/82 07/16/2025 12:16 PM EDT Pulse 88 07/10/2025 9:44 AM EDT Temperature 36.2 C (97.2 F) 09/15/2024 10:16 AM EDT Respiratory Rate 16 04/04/2025 3:01 PM EDT Oxygen Saturation 97% 07/10/2025 9:44 AM EDT Inhaled Oxygen Concentration - - Weight 81.6 kg (180 lb) 07/16/2025 12:16 PM EDT Height 165.1 cm (5' 5 ) 07/16/2025 12:16 PM EDT Body Mass Index 29.95 07/16/2025 12:16 PM EDT Plan of Treatment Upcoming Encounters Date Type Department Care Team (Late st Contact Info) Description 07/23/2025 11:20 AM EDT Office Visit [facility] [address] [facility] [address] [place] [address] Milton Arriaga MD [address] [facility] [address] [place] [address] 08/27/2025 10:30 AM EDT Office Visit [facility] [address] [facility] [address] [place] [phone] Erum Hickman, TRANSMISSION TESTER-[facility] [address] [facility] [address] [place] [address] 10/17/2025 11:30 AM EST Office Visit [facility] [address] [facility] [address] [place] [address] Jacquie Velasco, TRANSMISSION TESTER-PILOT BOAT OPERATOR [address] [facility] [place], [place] [id number] 01/10/2026 9:45 AM EST Office Visit [facility] [address] [facility] [address] [place] [address] Health Maintenance Due Date Last Done Comments CT Colonography 1968 FIT-DNA 1968 FIT 1968 FOBT 1968 Sigmoidoscopy 1968 Influenza Vaccine (#1) 2025 , 08/25/2022, 09/16/2020, Additional history exists Mammogram 03/05/2026 03/05/2025, 09/30, 08/13/2021, Additional history exists Pap Smear 10/05/2026 10/05/2023 Cervical Cancer Screening 02/14/2030 HPV/Cotest 02/14/2030 02/14/2025, 10/05/2023 Colonoscopy 02/24/2034 02/25/2024, 05/31/2018 Colorectal Cancer Screening 02/24/2034 Procedures Procedure Name Priority Date/Time Associated Diagnosis Comments UR MICROSCOPIC REFLEX Routine 07/02/2025 10:52 AM EDT CBC (INCLUDES DIFF/PLT) Routine 07/02/2025 10:52 AM EDT Essential hypertension B12 deficiency URINALYSIS, COMPLETE Routine 07/02/2025 10:52 AM EDT Essential hypertension MICROALBUMIN / CREATININE URINE RATIO Routine 07/02/2025 10:52 AM EDT Essential hypertension LIPID PANEL Routine 07/02/2025 10:52 AM EDT Annual physical exam Pure hypercholesterolemia COMPREHENSIVE METABOLIC PANEL Routine 07/02/2025 10:52 AM EDT Annual physical exam Essential hypertension HEMOGLOBIN A1C WITH EAG Routine 07/02/2025 10:52 AM EDT Prediabetes VITAMIN B12 Routine 07/02/2025 10:52 AM EDT B12 deficiency COMPLEMENT COMPONENT C4C Routine 07/02/2025 10:50 AM EDT Angioedema, initial encounter IMMUNOGLOBULIN FREE LT CHAINS BLOOD Routine 07/02/2025 10:50 AM EDT Angioedema, initial encounter PROTEIN ELECTROPHORESIS, SERUM Routine 07/02/2025 10:50 AM EDT Angioedema, initial encounter BI MAMMOGRAM SCREENING TOMOSYNTHESIS BILATERAL Routine 03/05/2025 10:58 AM EDT Encounter for screening mammogram for malignant neoplasm of breast IGP, APT HPV,RFX 16/18,45 Routine 02/14/2025 12:00 AM EDT Screening for malignant neoplasm of cervix COLONOSCOPY Routine 02/25/2024 8:22 AM EDT THINPREP TIS PAP AND HPV MRNA E6/E7 Routine 10/05/2023 9:53 AM EST Encounter for gynecological examination without abnormal finding Screening for malignant neoplasm of cervix from Last 3 Months or Most Recently Relevant to Health Maintenance Results * (ABNORMAL) Ur Microscopic Reflex (07/02/2025 10:52 AM EDT) WBC Ur 11-30(A) 0 - 5 /hpf [facility] RBC Ur 0-2 0 - 2 /hpf [facility] Epithelial Cells (non renal) Ur >10(A) 0 - 10 /hpf [facility] Casts Ur None seen None seen /lpf [facility] Bacteria Ur Few None seen/Few [facility] 07/02/2025 10:5 2 AM EDT 07/02/2025 Narrative [facility] - 07/03/2025 1:07 PM EDT Performed at: [address] [place] [address] [id number] Logging Assistant: Sohail Toledo PhD, Phone: [phone] us Rhiannon Alex QUALITY CONTROL ENGINEER LAB URINE ORDERABLES Final Re sult [facility] * (ABNORMAL) Hemoglobin a1c with eag (07/02/2025 10:52 AM EDT) HgbA1C 5.9(H) 4.8 - 5.6 % [facility] Comment: Prediabetes: 5.7 - 6.4 Diabetes: >6.4 Glycemic control for adults with diabetes: <7.0 Est Avg Gluc eAG 123 mg/dL [facility] Blood Venous blood specimen / Unknown 07/02/2025 10:52 AM EDT 07/02/2025 Narrative [facility] - 07/03/2025 1:07 PM EDT Performed at: [address] [place] [address] [id number] Logging Assistant: Sohail Toledo PhD, Phone: [phone] Rhiannon Alex QUALITY CONTROL ENGINEER LAB BLOOD ORDERABLES Final Re sult Performing Organization Address [facility] Co de Phone Number [facility] * Microalbumin / creatinine urine ratio (07/02/2025 10:52 AM EDT) Creat Ur 99.9 Not Estab. mg/dL [facility] Albumin Ur 17.1 Not Estab. ug/mL [facility] Alb/Creat Ratio Urine 17 0 - 29 mg/g creat [facility] Comment: Normal: 0 - 29 Moderately increased: 30 - 300 Severely increased: >300 Urine Urine specimen obtained by clean catch procedure / Unknown 07/02/2025 10:52 AM EDT 07/02/2025 Narrative [facility] - 07/03/2025 1:07 PM EDT Performed at: [address] [place] [address] [id number] Logging Assistant: Sohail Toledo PhD, Phone: [phone] Rhiannon Alex QUALITY CONTROL ENGINEER LAB URINE ORDERABLES Final Re sult Performing Organization Address [facility] Co de Phone Number [facility] * (ABNORMAL) Urinalysis with microscopic (07/02/2025 10:52 AM EDT) Specific [place] Urine 1.020 1.005 - 1.030 [facility] pH Urine 5.5 5.0 - 7.5 [facility] Color Urine Yellow Yellow [facility] Appearance Urine Clear Clear [facility] WBC Esterase Urine 3+(A) Negative [facility] Protein Urine Negative Negative/Tra ce [facility] Glucose Urine Negative Negative [facility] Ketones Urine Negative Negative [facility] Occult Blood Urine Negative Negative [facility] Bilirubin Urine Negative Negative [facility] Urobilinogen,Se mi-Qn Urine 0.2 0.2 - 1.0 mg/dL [facility] Nitrite Urine Negative Negative [facility] Ur Microscopic See below: [facility] Comment:Microscopic was girish cated and was performed. Urine Urine specimen obtained by clean catch procedure / Unknown 07/02/2025 10:52 AM EDT 07/02/2025 Narrative [facility] - 07/03/2025 1:07 PM EDT Performed at: 01 - [address] [id number] Logging Assistant: Sohail Toledo PhD, Phone: [phone] us Rhiannon Alex QUALITY CONTROL ENGINEER LAB URINE ORDERABLES Final Re sult [facility] * (ABNORMAL) CBC and differential (07/02/2025 10:52 AM EDT) WBC 11.4(H) 3.4 - 10.8 x10E3/uL [facility] RBC 5.00 3.77 - 5.28 x10E6/uL [facility] Hgb 14.1 11.1 - 15.9 g/dL [facility] Hct 45.2 34.0 - 46.6 % [facility] MCV 90 79 - 97 fL [facility] MCH 28.2 26.6 - 33.0 pg [facility] MCHC 31.2(L) 31.5 - 35.7 g/dL [facility] RDW 14.9 11.7 - 15.4 % [facility] Platelets 402 150 - 450 x10E3/uL [facility] Neutrophils 56 Not Estab. % [facility] Lymphs 34 Not Estab. % [facility] Monocytes 6 Not Estab. % [facility] Eos 2 Not Estab. % [facility] Basos 1 Not Estab. % [facility] Neutrophils Abs 6.4 1.4 - 7.0 x10E3/uL [facility] Lymphs Abs 3.9(H) 0.7 - 3.1 x10E3/uL [facility] MonocytesAbs 0.7 0.1 - 0.9 x10E3/uL [facility] Eos Abs 0.2 0.0 - 0.4 x10E3/uL [facility] Baso Abs 0.1 0.0 - 0.2 x10E3/uL [facility] Immature Granulocytes 1 Not Estab. % [facility] Immature Grans Abs 0.1 0.0 - 0.1 x10E3/uL [facility] Blood Venous blood specimen / Unknown 07/02/2025 10:52 AM EDT 07/02/2025 Narrative [facility] - 07/03/2025 1:07 PM EDT Performed at: [address] [place] [address] [id number] Logging Assistant: Sohail Toledo PhD, Phone: [phone] Rhiannon Alex QUALITY CONTROL ENGINEER LAB BLOOD ORDERABLES Final Re sult Performing Organization Address City/[facility] Co de Phone Number [facility] * Vitamin B12 (07/02/2025 10:52 AM EDT) [facility] Vitamin B12 279 232 - 1,245 pg/mL [facility] Blood Venous blood specimen / Unknown 07/02/2025 10:52 AM EDT 07/02/2025 Narrative [facility] - 07/03/2025 1:07 PM EDT Performed at: [address] [place] [address] [id number] Logging Assistant: Sohail Toledo PhD, Phone: [phone] Rhiannon Alex NP LAB BLOOD ORDERABLES Final Re sult Performing Organization Address [facility] Co de Phone Number [facility] * (ABNORMAL) Lipid panel (07/02/2025 10:52 AM EDT) Cholesterol, Total 330(H) 100 - 199 mg/dL [facility] Triglycerides 425(H) 0 - 149 mg/dL [facility] HDL Cholesterol 55 >39 mg/dL [facility] VLDL Cholesterol Fritz 86(H) 5 - 40 mg/dL [facility] LDL Chol Calc (NIH) 189(H) 0 - 99 mg/dL [facility] LDL CHOLESTEROL,CALCUL ATED Comment [facility] Comment: Consider evaluating for Familial Hypercholesterolemia(FH), if clinically indicated. Blood Venous blood specimen / Unknown 07/02/2025 10:52 AM EDT 07/02/2025 Narrative [facility] - 07/03/2025 1:07 PM EDT Performed at: - [facility] [address] [id number] Logging Assistant: Sohail Toledo PhD, Phone: [phone] us Rhiannon Alex QUALITY CONTROL ENGINEER LAB BLOOD ORDERABLES Final Re sult Performing Organization Address City/[facility]/ZIP Co de Phone Number [facility] * (ABNORMAL) Comprehensive metabolic panel (07/02/2025 10:52 AM EDT) [facility] Glucose 90 70 - 99 mg/dL [facility] BUN 18 6 - 24 mg/dL [facility] Creat 1.05(H) 0.57 - 1.00 mg/dL [facility] EGFR 62 >59 mL/min/1.7 3 [facility] BUN/Creat Ratio 17 9 - 23 [facility] Sodium 142 134 - 144 mmol/L [facility] Potassium 4.4 3.5 - 5.2 mmol/L [facility] Chloride 103 96 - 106 mmol/L [facility] Carbon Dioxide 21 20 - 29 mmol/L [facility] Calcium 9.7 8.7 - 10.2 mg/dL [facility] Protein Total 7.2 6.0 - 8.5 g/dL [facility] Albumin 4.5 3.8 - 4.9 g/dL [facility] Globulin Total 2.7 1.5 - 4.5 g/dL [facility] Bili Total 0.5 0.0 - 1.2 mg/dL [facility] Alk Phosphatase 84 44 - 121 IU/L [facility] AST 21 0 - 40 IU/L [facility] ALT 25 0 - 32 IU/L [facility] Blood Venous blood specimen / Unknown 07/02/2025 10:52 AM EDT 07/02/2025 Narrative [facility] - 07/03/2025 1:07 PM EDT Performed at: 01 - [facility] [address] [id number] Logging Assistant: Sohail Toledo PhD, Phone: [phone] us Rhiannon Alex QUALITY CONTROL ENGINEER LAB BLOOD ORDERABLES Final Re sult Performing Organization Address [facility]/ZIP Co de Phone Number [facility] * (ABNORMAL) Immunoglobulin free LT chains blood (07/02/2025 10:50 AM EDT) Pathologist [facility] FREE KAPPA LT CHAINS,S 22.1(H) 3.3 - 19.4 mg/L [facility] FREE LAMBDA LT CHAINS,S 17.5 5.7 - 26.3 mg/L [facility] KAPPA/LAMBDA RATIO,S 1.26 0.26 - 1.65 [facility] Blood Venous blood specimen / Unknown 07/02/2025 10:50 AM EDT 07/02/2025 Narrative [facility] - 07/03/2025 6:07 PM EDT Performed at: [address] [place] [address] [id number] Logging Assistant: Sohail Toledo PhD, Phone: [phone] Milton Arriaga MD LAB BLOOD ORDERABLES Final Re sult Performing Organization Address [facility] de Phone Number [facility] * C4 complement (07/02/2025 10:50 AM EDT) [facility] C4 Complement 33 12 - 38 mg/dL [facility] Blood Venous blood specimen / Unknown 07/02/2025 10:50 AM EDT 07/02/2025 Narrative [facility] - 07/03/2025 8:35 AM EDT Performed at: [address] [place] [address] [id number] Logging Assistant: Sohail Toledo PhD, Phone: [phone] Milton Arriaga MD LAB BLOOD ORDERABLES Final Re sult Performing Organization Address [facility]/ZIP Co de Phone Number [facility] * (ABNORMAL) Protein electrophoresis, serum (07/02/2025 10:50 AM EDT) [facility] Protein Total 7.1 6.0 - 8.5 g/dL [facility] ALBUMIN 3.6 2.9 - 4.4 g/dL [facility] [id number] 0.2 0.0 - 0.4 g/dL [facility] [id number] 0.9 0.4 - 1.0 g/dL [facility] BETA GLOBULIN 1.5(H) 0.7 - 1.3 g/dL [facility] GAMMA GLOBULIN 0.9 0.4 - 1.8 g/dL [facility] M-SPIKE Not Observed Not Observed g/dL [facility] GLOBULIN, TOTAL 3.5 2.2 - 3.9 g/dL [facility] A/G RATIO 1.0 0.7 - 1.7 [facility] PLEASE NOTE: Comment [facility] Comment: Protein electrophoresis scan will follow via computer, mail, or sheet rock finisher delivery. P E INTERPRETATION, S Comment [facility] Comment: The SPE pattern demonstrates an increase in the beta fraction. This may be due to increases in transferrin, beta-lipoprotein (hypercholesterolemia), or immunoglobulins, as seen in polyclonal or monoclonal gammopathies. If clinically indicated, the presence of a monoclonal gammopathy may be confirmed by immunofixation or serum free light chain quantitation. Blood Venous blood specimen / Unknown 07/02/2025 10:50 AM EDT 07/02/2025 Narrative [facility] - 07/03/2025 6:07 PM EDT Performed at: 01 - [place] [address] Logging Assistant: Sohail Toledo PhD, Phone: [phone] Milton Arriaga MD LAB BLOOD ORDERABLES Final Re sult [facility] * Bilateral screening mammogram with tomosynthesis (03/05/2025 10:58 AM EDT) Anatomical Region Laterality Modality Breast Bilateral Mammography 03/05/2025 1:28 PM EDT Impressions 03/05/2025 1:35 PM EDT Impression: No specific evidence of malignancy seen in either breast. BIRADS 2 - Benign Findings DENSITY: There are scattered areas of fibroglandular density. FOLLOW-UP: Routine Screening Mammogram ELECTRONICALLY SIGNED BY: Lenard Chaparro M.D. Narrative 03/05/2025 1:35 PM EDT Examination: BI MAMMOGRAM SCREENING TOMOSYNTHESIS BILATERAL Clinical History: screening Technique: Screening digital mammography study of both breasts was performed with 2-D and 3-D tomosynthesis imaging. Study was compared to the prior exam dated 10/26/2023. Findings: There is no evidence of interval dominant spiculated mass, grouped microcalcifications, or skin thickening which would be suggestive of malignancy. Mild scattered benign-appearing calcifications are noted bilaterally including vascular calcifications on the left. Small benign-appearing asymmetric density on the right similar to the prior study. Axillary lymph nodes are noted on the left which appear grossly unremarkable. Procedure Note Lenard Chaparro MD - 03/05/2025 Examination: BI MAMMOGRAM SCREENING TOMOSYNTHESIS BILATERAL Clinical History: screening Technique: Screening digital mammography study of both breasts wasperformed with 2-D and 3-D tomosynthesis imaging. Study was compared tothe prior exam dated 10/26/2023. Findings: There is no evidence of interval dominant spiculated mass,grouped microcalcifications, or skin thickening which would be suggestiveof malignancy. Mild scattered benign-appearing calcifications are noted bilaterallyincluding vascular calcifications on the left. Small benign-appearingasymmetric density on the right similar to the prior study. Axillary lymphnodes are noted on the left which appear grossly unremarkable. IMPRESSION: Impression: No specific evidence of malignancy seen in either breast. BIRADS 2 - Benign Findings DENSITY: There are scattered areas of fibroglandular density. FOLLOW-UP: Routine Screening Mammogram ELECTRONICALLY SIGNED BY: Lenard Chaparro M.D. Rhiannon Alex QUALITY CONTROL ENGINEER IMG BI PROCEDURES Final Resul t * (ABNORMAL) IGP, APT HPV,RFX 16/18,45 (02/14/2025 12:00 AM EDT) Diagnosis: Comment [facility] Comment:NEGATIVE FOR INTRAEP ITHELIAL LESION OR MALIGNANCY. Specimen Adequacy: Comment [facility] Comment: Satisfactory for evaluation. Endocervical and/or squamous metaplastic cells (endocervical component) are present. Clinician Provided ICD10: Comment [facility] Comment:Z12.4 Performed By: Comment [facility] Comment:Brigid Burns, Cytot echnologist ([facility]) Cyto Comments . [facility] Note: Comment [facility] Comment: The Pap smear is a screening test designed to aid in the detection of premalignant and malignant conditions of the uterine cervix. It is not a diagnostic procedure and should not be used as the sole means of detecting cervical cancer. Both false-positive and false-negative reports do occur. Test Methodology: Comment [facility] Comment: This liquid based ThinPrep(R) pap test was screened with the use of an image guided system. HPV Aptima Positive(A ) Negative [facility] Comment: This nucleic acid amplification test detects fourteen high-risk HPV types (16,18,31,33,35,39,45,51,52,56,58,59,66,68) without differentiation. Swab 02/14/2025 02/15/2025 Narrative [facility] - 02/20/2025 6:06 AM EDT Performed at: - [address] [id number] Logging Assistant: Griselda Curtis MD, Phone: [phone] Performed at: - [address] [id number] Logging Assistant: Griselda Curtis MD, Phone: [phone] Specimen Comment: [id number] Specimen Comment: No. of containers..01 ThinPrep Vial Quan Kang DO LAB BLOOD ORDERABLES Final R esult [facility] * Colonoscopy (02/25/2024 8:22 AM EDT) Anatomical Region Laterality Modality Endoscopy Unknown Practice A ENDOSCOPY PROCEDURE ORDERABLE S Final Result * (ABNORMAL) THINPREP TIS PAP AND HPV MRNA E6/E7 (10/05/2023 9:53 AM EST) CLINICAL INFORMATION [facility] Comment:None given LMP [facility] Comment:2013 PREV. PAP [facility] Comment:NEG PREV. BX [facility] Comment:NONE GIVEN SOURCE [facility] Comment:None given STATEMENT OF ADEQUACY [facility] Comment: Satisfactory for evaluation. Endocervical/transformation zone component present. GENERAL CATEGORIZATION (A) [facility] Comment:Cytology Results: Ep ithelial Cell Abnormality INTERPRETATION/RESUL T (A) [facility] Comment: Atypical Squamous Cells of Undetermined Significance (ASC-US) INFECTION [facility] Comment: Fungal organisms morphologically consistent with Altagracia spp. COMMENT [facility] Comment: This Pap test has been evaluated with computer assisted technology. MOBILE HOME SERVICER [facility] Comment: BLM, CT(ASCP) CT Screening Location: [facility] [address] [address] PATHOLOGIST [facility] Comment: Eliz Michelle M.D. Board Certified in Anatomic and Clinical Pathology (electronic signature) For questions regarding this report call Anatomic Pathology at [phone] (ALWAYS MESSAGE) [facility] Comment: EXPLANATORY NOTE: The Pap is a screening test for cervical cancer. It is not a diagnostic test and is subject to false negative and false positive results. It is most reliable when a satisfactory sample, regularly obtained, is submitted with relevant clinical findings and history, and when the Pap result is evaluated along with historic and current clinical information. HPV MRNA E6/E7 Detected (A) Not Detected [facility] Comment: Methodology: Newspaper Editor-Mediated Amplification This assay detects E6/E7 viral messenger RNA (mRNA) from 14 high-risk HPV types (16,18,31,33,35,39,45,51,52,56,58,59,66,68). Cervical sources are required for HPV testing. If a vaginal source from a patient who has had a total hysterectomy with removal of cervix was submitted, please contact the testing laboratory for alternative testing options. For additional information, please refer to http://education.[employer]/faq/TPU913k3 (This link if provided for information/ educational purposes only.) Swab 10/05/2023 9:53 AM EST 10/06/2023 3:59 AM EST Narrative Resulting Agency Comment Performing Organization Information Site ID: [id number] Name: [facility] Address: [address] [place] [address], [address] [place] [id number] Director: Evan Lucero MD Quan Kang DO LAB CYTOLOGY ORDERABLES Fela porter Result [facility] from Last 3 Months or Most Recently Relevant to Health Maintenance Insurance [facility] MEDICAID Care Teams Modern Dancer Relationship Specialty Start Date End Date Darnell French MD [address] [facility] [address] [place] [address] PCP - General Internal Medicine 05/04/23 Erum Hickman APRN-TAX INTERN [address] [facility] 160 [place] [address] Nurse Practitioner Psychiatry 12/15/24
--- OUTSIDE RECORDS SUMMARY | 2025-07-22 17:02 | XMS_ITS | Encounter Summary ---
Author Organization [facility] Address [address] [facility] [place] [address] Care Team Providers Care Accreditation Coordinator Name Role Phone Darnell French MD Primary Care Provider [phone] Erum Hickman BLOGS MANAGER-GUNCOTTON PACKER Unavailable Encounter Details Date Type Department Care Team (Late st Contact Info) Description 05/08/2024 Orders Only [facility] [address] [address] [place] [address] A, Unknown Practice [address] [place], [place] [phone] Social History Tobacco Use Types Packs/Day Years Used Date Smoking Tobacco: Never Smokeless Tobacco: Never Alcohol Use Standard Drinks/Week Comments Not Currently 0 (1 standard drink = 0.6 oz pure alcohol) caffeine: occasional coke, once in a while, 1 a day AUDIT-C Answer Date Recorded Q1: How often do you have a drink containing alc ohol? Monthly or less 10/05/2023 Q2: How many drinks containi ng alcohol do you have on a typical day when you are drinking? 1 or 2 10/05/2023 Q3: How often do you have si x or more drinks on one occasion? Never 10/05/2023 PHQ-2 Answer Date Recorded Patient Health Questionnaire-2 Score 0 03/15/2024 Exercise Vital Sign Answer Date Recorde d [...] on file documented as of this encounter Plan of Treatment Upcoming Encounters Date Type Department Care Team (Late st Contact Info) Description 07/23/2025 11:20 AM EDT Office Visit [facility] [address] [place] [address] Milton Arriaga MD [address] [place] [address] 08/27/2025 10:30 AM EDT Office Visit [facility] [address] [facility] [address] [place] [phone] Erum Hickman, BLOGS MANAGER-GUNCOTTON PACKER [address] [facility] [address] [place] [address] 10/17/2025 11:30 AM EST Office Visit [facility] [address] [place] [address] Jacquie Velasco, BLOGS MANAGER-REVOLVING INVENTORY CLERK [address] [facility] [place] [address] 01/10/2026 9:45 AM EST Office Visit [facility] [address] [place] [address] documented as of this encounter Procedures Procedure Name Priority Date/Time Associated Diagnosis Comments XR ANKLE 3+ VIEWS LEFT Routine 05/08/2024 10:55 AM EDT XR FOOT 3+ VIEWS LEFT Routine 05/08/2024 10:51 AM EDT documented in this encounter Results * XR ankle 3+ views left (05/08/2024 10:55 AM EDT) Anatomical Region Laterality Modality Lower Extremities, Ankle Left Radiogr aphic Imaging us Unknown Practice A IMG XR PROCEDURES Final Resul t * XR foot 3+ views left (05/08/2024 10:51 AM EDT) Anatomical Region Laterality Modality Lower Extremities, Foot Left Radiogra phic Imaging us Unknown Practice A IMG XR PROCEDURES Final Resul t documented in this encounter Visit Diagnoses Not on filedocumented in this encounter Additional Health Concerns Assessment Noted Time PHQ-9 Depression Total Score: 16 023 8:14 AM EDT documented as of this encounter Care Teams Accreditation Coordinator Relationship Specialty Start Date End Date Darnell French MD [address] [facility] 230 [place] [address] PCP - General Internal Medicine 05/04/23 Erum Hickman APRN-GUNCOTTON PACKER [address] [facility] 160 [place] [address] Nurse Practitioner Psychiatry 12/15/24 documented as of this encounter
--- OUTSIDE RECORDS SUMMARY | 2025-07-22 17:02 | XMS_ITS | Clinical Summary ---
Author Organization [facility] Address [address] [place] [address] Care Team Providers Care Copy Technician Name Role Phone Unavailable Primary Care Provider Unavailabl e Social History Tobacco Use Types Packs/Day Years Used Date Smoking Tobacco: Never Assessed Comments Unknown Sex and Gender Information Value Date Recorded Sex Assigned at Not on file Legal Sex Female 4:55 PM EDT Gender Identity Not on file Sexual Orientation Not on file Plan of Treatment Health Maintenance Due Date Last Done Comments Anxiety Screening 01/26/1986 Depression Screening 01/26/1986 HIV Screening 01/26/1986 Hepatitis C Screening 01/26/1986 DTaP,Tdap,Td Vaccine (1 - Tdap) 01/26/1987 Hepatitis B Vaccine (1 of 3 - 19+ 3-dose series) 01/26 Cervical Cancer Screening 01/26/[address] Colonography 01/26/2013 Cologuard (FIT-DNA) 01/26/2013 Colonoscopy 01/26/2013 Colorectal Cancer Screening 01/26/2013 Diabetes Screening 01/26/2013 Fecal Occult Blood 01/26/2013 Lipid Screening 01/26/2013 Sigmoidoscopy 01/26/2013 Pneumococcal Vaccine: 50+ (1 of 1 - PCV) 01/26/2018 Shingrix Vaccine (1 of 2) 01/26/2018 Influenza Vaccine (#1) 2025
--- OUTSIDE RECORDS SUMMARY | 2025-07-22 17:02 | XMS_ITS | Encounter Summary ---
Author Organization [facility] Address [address] [place] [address] Care Team Providers Care Gymnastics Coach Name Role Phone Julio C Jarrett MD Primary Care Provider [phone] Erum Hickman APRN-HOG KILLER Unavailable Encounter Details Date Type Department Care Team (Late st Contact Info) Description 05/08/2024 Clinisync Result Encounter [facility] External Department Unsolicited Provider, Generic External Data Social History Tobacco Use Types Packs/Day Years [...] Allergy [address] [place] [address] Milton Arriaga MD [address] [place] [address] 08/27/2025 10:30 AM EDT Office Visit [facility] [address] [place] [address] [place] [address] Erum Hickman, WOODS RIDER-HOG KILLER [address] [place] [address] 10/17/2025 11:30 AM EST Office Visit [facility] [address] [place] [address] Jacquie Velasco, WOODS RIDER-DRILLING ASSISTANT [address] [facility] [place] [address] 01/10/2026 9:45 AM EST Office Visit [facility] [address] [place] [address] documented as of this encounter Procedures Procedure Name Priority Date/Time Associated Diagnosis Comments XR ANKLE LT MIN 3V 05/08/2024 4: 03 AM EDT documented in this encounter Results * XR ANKLE LT MIN 3V (05/08/2024 4:03 AM EDT) Anatomical Region Laterality Modality Other 05/08/2024 4:03 AM EDT Narrative 05/08/2024 4:07 AM EDT [address] [address] XRay Report Signed Patient: YARELIS SWENSON MR#: [id number] : 1970 Acct:[id number] Age/Sex: 54 / F ADM Date: 05/05/24 Loc: EC Attending Dr: Дмитрий Remy D.P.M. Ordering Physician: Дмитрий Remy D.P.M. Date of Service: 05/05/24 Procedure(s): XR ankle LT min 3V Accession Number(s): [id number] cc: JULIO C JARRETT ; Дмитрий Remy D.P.M. [place] [address] Patient Name: YARELIS SWENSON MRN: [id number] date: 1970 Sex: F Assigned Patient Location: Current Patient Location: Accession/Order Number: [id number] Exam Date: 05/05/2024 09:35 Report Date: 05/08/2024 04:03 At the request of: ДМИТРИЙ REMY Procedure: XR ankle LT min 3V PROCEDURE: XR ankle LT min 3V, XR foot LT min 3V HISTORY: LEFT ANKLE PAIN , lateral ankle and midfoot swelling COMPARISON: XR ankle left 10/06/2023 FINDINGS: BONES:Mild narrowing of the first metatarsophalangeal joint. No fracture, acute abnormality, or significant arthropathy. Large calcaneal plantar spur and moderate sized degenerative enthesophyte at Achilles tendon insertion into the calcaneus. SOFT TISSUES:Mild soft tissue swelling. EFFUSION:None visible. OTHER: Negative. XR/XR ankle LT min 3V IMPRESSION: 1. No acute or specific findings to account for patient's symptoms. 2. Mild degenerative changes. Electronically authenticated by: ELKIN LEUNG Date: 05/08/2024 04:03 Dictated By: Elkin Leung M.D. Signed By: 05/08/24406 DD/ 2 TD/TT: Automobile Body Worker: Procedure Note Radiology, Radiologist, - 05/08/2024 [place] [address] XRay Report Signed Patient: YARELIS SWENSON DMR#: [id number] : 1970Acct:[id number] Age/Sex: 54 / FADM Date: 05/05/24 Loc: EC Attending Dr: Дмитрий Remy D.P.M. Ordering Physician: Дмитрий Remy D.P.M. Date of Service: 05/05/24 Procedure(s): XR ankle LT min 3V Accession Number(s): [id number] cc: JULIO C JARRETT ; Дмитрий Remy D.P.M. [place] [address] Patient Name: YARELIS SWENSON MRN: [id number] date: 1970 Sex: F Assigned Patient Location: Current Patient Location: Accession/Order Number: [id number] Exam Date: 05/05/2024 09:35 Report Date: 05/08/2024 04:03 At the request of: ДМИТРИЙ REMY Procedure: XR ankle LT min 3V PROCEDURE: XR ankle LT min 3V, XR foot LT min 3V HISTORY: LEFT ANKLE PAIN , lateral ankle and midfoot swelling COMPARISON: XR ankle left 10/06/2023 FINDINGS: BONES:Mild narrowing of the first metatarsophalangeal joint. No fracture, acute abnormality, or significant arthropathy. Large calcaneal plantar spur and moderate sized degenerative enthesophyte at Achilles tendon insertion intothe calcaneus. SOFT TISSUES:Mild soft tissue swelling. EFFUSION:None visible. OTHER: Negative. XR/XR ankle LT min 3V IMPRESSION: 1. No acute or specific findings to account for patient's symptoms. 2. Mild degenerative changes. Electronically authenticated by: ELKIN LEUNG Date: 05/08/2024 04:03 Dictated By: Elkin Leung M.D. Signed By:05/08/24406 DD/ 2 TD/TT: Automobile Body Worker: us Generic External Data Provider [facility] Final Result documented in this encounter Visit Diagnoses Not on filedocumented in this encounter Additional Health Concerns Assessment Noted Time PHQ-9 Depression Total Score: 16 023 8:14 AM EDT documented as of this encounter Care Teams Gymnastics Coach Relationship Specialty Start Date End Date Julio C Jarrett MD [address] [facility] 230 [place] [address] PCP - General Internal Medicine 05/04/23 Erum Hickman, WOODS RIDER-HOG KILLER [address] [facility] 160 [place] [address] Nurse Practitioner Psychiatry 12/15/24 documented as of this encounter
--- OUTSIDE RECORDS SUMMARY | 2025-07-22 17:02 | XMS_ITS | Encounter Summary ---
Author Organization [facility] Address [address] [facility] [place] [address] Care Team Providers Care Boat Pilot Name Role Phone Darnell French MD Primary Care Provider [phone] Gillian-Erum Montero ROCK WOOL APPLICATOR-POWERPLANT OPERATOR Unavailable Encounter Details Date Type Department Care Team (Late st Contact Info) Description 02/26/2025 Orders Only [facility] [address] [facility] [address] [place] [address] Unallocated, Noms Provider, [address] [place] [address] Social History Tobacco Use Types Packs/Day Years [...] Allergy [address] [place] [address] Milton Arriaga MD [address] [place] [address] 08/27/2025 10:30 AM EDT Office Visit [facility] [address] [facility] [address] [place] [phone] Erum Hickman, ROCK WOOL APPLICATOR-POWERPLANT OPERATOR [address] [facility] [address] [place] [address] 10/17/2025 11:30 AM EST Office Visit [facility] [address] [place] [address] Jacquie Velasco, ROCK WOOL APPLICATOR-SOILED LINEN DISTRIBUTOR [address] [facility] [address] [place], [place] [address] 01/10/2026 9:45 AM EST Office Visit [facility] [address] [place] [address] documented as of this encounter Procedures Procedure Name Priority Date/Time Associated Diagnosis Comments NT PRO-BNP Routine 02/20/2025 10:19 AM EDT TROPONIN T, HIGH SENSITIVITY Routine 02/20/2025 10:19 AM EDT CBC WITH AUTO DIFFERENTIAL Routine 02/20/2025 10:19 AM EDT TSH Routine 02/20/2025 10:19 AM EDT MAGNESIUM Routine 02/20/2025 10:19 AM EDT COMPREHENSIVE METABOLIC PANEL Routine 02/20/2025 10:19 AM EDT ECG 12-LEAD Routine 02/20/2025 10:16 AM EDT documented in this encounter Results * CBC auto differential (02/20/2025 10:19 AM EDT) Blood Venous blood specimen / Unknown us Noms Provider Unallocated MD LAB BLOOD ORDERABLE S Final Result * Comprehensive metabolic panel (02/20/2025 10:19 AM EDT) Blood Venous blood specimen / Unknown us Noms Provider Unallocated MD LAB BLOOD ORDERABLE S Final Result * Magnesium (02/20/2025 10:19 AM EDT) Blood Venous blood specimen / Unknown us Noms Provider Unallocated MD LAB BLOOD ORDERABLE S Final Result * TROPONIN T, HIGH SENSITIVITY (02/20/2025 10:19 AM EDT) us Noms Provider Unallocated MD LAB BLOOD ORDERABLE S Final Result * NT PRO-BNP (02/20/2025 10:19 AM EDT) us Noms Provider Unallocated MD LAB BLOOD ORDERABLE S Final Result * TSH (02/20/2025 10:19 AM EDT) Blood Venous blood specimen / Unknown us Noms Provider Unallocated MD LAB BLOOD ORDERABLE S Final Result * ECG 12 lead (02/20/2025 10:16 AM EDT) us Noms Provider Unallocated MD ECG ORDERABLES Fin al Result documented in this encounter Visit Diagnoses Not on filedocumented in this encounter Additional Health Concerns Assessment Noted Time PHQ-9 Depression Total Score: 0 02/13/20 1:08 PM EDT documented as of this encounter Care Teams Boat Pilot Relationship Specialty Start Date End Date Darnell French MD [address] [facility] 230 [place] [address] PCP - General Internal Medicine 05/04/23 Erum Hickman APRN-POWERPLANT OPERATOR [address] [facility] 160 [place] [address] Nurse Practitioner Psychiatry 12/15/24 documented as of this encounter
--- OUTSIDE RECORDS SUMMARY | 2025-07-22 17:02 | XMS_ITS | Encounter Summary ---
Author Organization [facility] Address [address] [place] [address] Phone Care Team Providers Care Customer Service Assistant Name Role Phone Unavailable Primary Care Provider Unavailabl e Encounter Details Date Type Department Care Team (Late st Contact Info) Description 01/21/2024 Scanned Document [facility] [address] [place] [phone] Scanning, Generic Provider Social History Tobacco Use Types Packs/Day Years Used Date Smoking Tobacco: Never Assessed Comments Unknown Sex and Gender Information Value Date Recorded Sex Assigned at Not on file Legal Sex Female 1:25 PM EST Gender Identity Not on file Sexual Orientation Not on file documented as of this encounter Plan of Treatment Not on file documented as of this encounter Procedures Procedure Name Priority Date/Time Associated Diagnosis Comments ECHOCARDIOGRAM 01/21/2024 documented in this encounter Results * ECHOCARDIOGRAM (01/21/2024) Narrative 01/21/2024 Ordered by an unspecified provider. us Generic Provider Scanning CV ECHO PROCEDURES Fin al Result documented in this encounter Visit Diagnoses Not on filedocumented in this encounter
--- OUTSIDE RECORDS SUMMARY | 2025-07-22 17:02 | XMS_ITS | Encounter Summary ---
Author Organization [facility] Address [address] [facility] [place] [address] Care Team Providers Care Subscription Clerk Name Role Phone Darnell French MD Primary Care Provider [phone] Gillian-Erum Montero MARKETING INTELLIGENCE MANAGER-PAINT BOOTH OPERATOR Unavailable Encounter Details Date Type Department Care Team (Late st Contact Info) Description 01/30/2025 Orders Only [facility] [address] [facility] [address] [place] [address] Unallocated, Noms Provider, [address] [place] [address] Social History Tobacco Use Types Packs/Day Years [...] Date Recorded Patient Health Questionnaire-2 Score 0 01/18/2025 Exercise Vital Sign Answer Date Recorde d [...] Allergy [address] [place] [address] Milton Arriaga MD [address] [place] [address] 08/27/2025 10:30 AM EDT Office Visit [facility] [address] [facility] [address] [place] [phone] Erum Hickman, MARKETING INTELLIGENCE MANAGER-PAINT BOOTH OPERATOR [address] [facility] [address] [place] [address] 10/17/2025 11:30 AM EST Office Visit [facility] [address] [place] [address] Jacquie Velasco, MARKETING INTELLIGENCE MANAGER-BAKERY MACHINE MECHANIC SUPERVISOR [address] [facility] [address] [place], [place] [address] 01/10/2026 9:45 AM EST Office Visit [facility] [address] [place] [address] documented as of this encounter Procedures Procedure Name Priority Date/Time Associated Diagnosis Comments XR FOOT 3+ VIEWS LEFT Routine 01/30/2025 4:26 PM EST documented in this encounter Results * XR foot 3+ views left (01/30/2025 4:26 PM EST) Anatomical Region Laterality Modality Lower Extremities, Foot Left Radiogra phic Imaging us Noms Provider Unallocated MD EVANS XR PROCEDURES F inal Result documented in this encounter Visit Diagnoses Not on filedocumented in this encounter Additional Health Concerns Assessment Noted Time PHQ-9 Depression Total Score: 8 01/18/20 25 1:29 PM EST documented as of this encounter Care Teams Subscription Clerk Relationship Specialty Start Date End Date Darnell French MD [address] [facility] 230 [place] [address] PCP - General Internal Medicine 05/04/23 Erum Hickman, MARKETING INTELLIGENCE MANAGER-PAINT BOOTH OPERATOR 112 [facility] 160 [place] [address] Nurse Practitioner Psychiatry 12/15/24 documented as of this encounter
--- OUTSIDE RECORDS SUMMARY | 2025-07-22 17:02 | XMS_ITS | Encounter Summary ---
Author Organization [facility] Address [address] [place] [address] Care Team Providers Care Supply Planner Name Role Phone Darnell French MD Primary Care Provider [phone] Erum Hickman CERTIFIED SURGICAL TECH/FIRST ASSISTANT-FOOD RUNNER Unavailable Reason for Visit * Reason Comments Med Refill Encounter Details Date Type Department Care Team (Late st Contact Info) Description 12/10/2024 Refill [facility] 112 [facility] [address] [place] [address] Erum Hickman, CERTIFIED SURGICAL TECH/FIRST ASSISTANT-FOOD RUNNER 112 [facility] 160 [place] [address] Bipolar affective disorder, currently depressed, moderate (HCC) Social History Tobacco Use Types Packs/Day Years [...] Date Recorded Patient Health Questionnaire-2 Score 0 12/13/2024 Exercise Vital Sign Answer Date Recorde d [...] on file documented as of this encounter Functional Status * Over the past 2 weeks, how often have you been bothered by any of the following problems? Question Answer Date of Assessment Author Little interest or pleasure in doing things Not at all 12/13/2024 8:36 AM EST Juju, Jen Feeling down, depressed, or hopeless Not at all 12/13/2024 8:36 AM EST Juju, Jen Patient Health Questionnaire -2 Score 0 12/13/2024 8:36 AM EST Juju Jen documented as of this encounter Plan of Treatment Upcoming Encounters Date Type Department Care Team (Late st Contact Info) Description 07/23/2025 11:20 AM EDT Office Visit [facility] [address] [place] [address] Milton Arriaga MD [address] [facility] [address] [place] [address] 08/27/2025 10:30 AM EDT Office Visit [facility] [address] [facility] [address] [place] [address] Erum Hickman, CERTIFIED SURGICAL TECH/FIRST ASSISTANT-FOOD RUNNER [address] [facility] [address] [place] [address] 10/17/2025 11:30 AM EST Office Visit [facility] [facility] [address] [place] [address] Jacquie Velasco APRN-FILM AND VIDEO EDITOR [address] [facility] [place] [address] 01/10/2026 9:45 AM EST Office Visit [facility] [address] [place] [address] documented as of this encounter Visit Diagnoses Diagnosis Bipolar affective disorder, currently depressed, moderate (HCC) Bipolar I disorder, most recent episode (or current) depressed, moderate documented in this encounter Additional Health Concerns Assessment Noted Time PHQ-9 Depression Total Score: 16 023 8:14 AM EDT documented as of this encounter Care Teams Supply Planner Relationship Specialty Start Date End Date Darnell French MD [address] [facility] [address] [facility] 230 [place] [address] PCP - General Internal Medicine 05/04/23 Erum Hickman, CERTIFIED SURGICAL TECH/FIRST ASSISTANT-FOOD RUNNER 112 [facility] [address] [place] [address] Nurse Practitioner Psychiatry 12/15/24 documented as of this encounter
--- OUTSIDE RECORDS SUMMARY | 2025-07-22 17:02 | XMS_ITS | Encounter Summary ---
Author Organization [facility] Address [address] [facility] [place] [address] Care Team Providers Care Center Medical And Lab Director Name Role Phone Darnell French MD Primary Care Provider [phone] Erum Hickman PANTS MAKER-SECONDARY CONNECTOR ARMATURE Unavailable Encounter Details Date Type Department Care Team (Late st Contact Info) Description 06/15/2024 Orders Only [facility] [address] [facility] [address] [place] [address] A, Unknown Practice [address] [place], [place] [phone] Social History Tobacco Use Types Packs/Day Years [...] Date Recorded Patient Health Questionnaire-2 Score 0 06/07/2024 Exercise Vital Sign Answer Date Recorde d [...] Allergy [address] [place] [address] Milton Arriaga MD [address] [place] [address] 08/27/2025 10:30 AM EDT Office Visit [facility] [address] [facility] [address] [place] [address] Erum Hickman, PANTS MAKER-SECONDARY CONNECTOR ARMATURE [address] [facility] 160 [place] [address] 10/17/2025 11:30 AM EST Office Visit [facility] [address] [place] [address] Jacquie Velasco, PANTS MAKER-ACCOUNT DEVELOPER [address] [facility] [place] [address] 01/10/2026 9:45 AM EST Office Visit [facility] [address] [place] [address] documented as of this encounter Procedures Procedure Name Priority Date/Time Associated Diagnosis Comments XR ANKLE 3+ VIEWS LEFT Routine 06/14/2024 11:03 AM EDT X-RAY : FOOT, LEFT Routine 06/14/2024 11:02 AM EDT documented in this encounter Results * XR ankle 3+ views left (06/14/2024 11:03 AM EDT) Anatomical Region Laterality Modality Lower Extremities, Ankle Left Radiogr aphic Imaging us Unknown Practice A IMG XR PROCEDURES Final Resul t * X-RAY : FOOT, LEFT (06/14/2024 11:02 AM EDT) Anatomical Region Laterality Modality Radiographic Annalee ging us Unknown Practice A IMG XR PROCEDURES Final Resul t documented in this encounter Visit Diagnoses Not on filedocumented in this encounter Additional Health Concerns Assessment Noted Time PHQ-9 Depression Total Score: 16 023 8:14 AM EDT documented as of this encounter Care Teams Center Medical And Lab Director Relationship Specialty Start Date End Date Darnell French MD [address] [facility] 230 [place] [address] PCP - General Internal Medicine 05/04/23 Erum Hickman APRN-SECONDARY CONNECTOR ARMATURE 112 [facility] 160 [place] [address] Nurse Practitioner Psychiatry 12/15/24 documented as of this encounter
--- OUTSIDE RECORDS SUMMARY | 2025-07-22 17:02 | XMS_ITS | Encounter Summary ---
Author Organization [facility] Address [address] [facility] [place] [address] Care Team Providers Care Metal Polisher And Buffer Apprentice Name Role Phone Darnell French MD Primary Care Provider [phone] Gillian-Erum Montero DRYWALL HANGER HELPER-SKEET OPERATOR Unavailable Encounter Details Date Type Department Care Team (Late st Contact Info) Description 12/28/2024 Orders Only [facility] [place] [facility] [address] [facility] [address] [place] [address] Unallocated, Noms Provider, [address] [place] [address] Social History Tobacco Use Types Packs/Day Years [...] Date Recorded Patient Health Questionnaire-2 Score 0 12/21/2024 Exercise Vital Sign Answer Date Recorde d [...] Allergy [address] [place] [address] Milton Arriaga MD [address] [place] [address] 08/27/2025 10:30 AM EDT Office Visit [facility] [address] [facility] [address] [place] [address] Erum Hickman, DRYWALL HANGER HELPER-SKEET OPERATOR [address] [facility] 160 [place] [address] 10/17/2025 11:30 AM EST Office Visit [facility] [address] [place] [address] Jacquie Velasco, DRYWALL HANGER HELPER-HOUSE BUILDER [address] [facility] [address] [place], [place] [address] 01/10/2026 9:45 AM EST Office Visit [facility] [address] [place] [address] documented as of this encounter Procedures Procedure Name Priority Date/Time Associated Diagnosis Comments XR CHEST 1 VIEW Routine 12/28/2024 2:51 PM EST documented in this encounter Results * XR chest 1 view (12/28/2024 2:51 PM EST) Anatomical Region Laterality Modality Chest Radiographic Annalee ging us Noms Provider Unallocated MD EVANS XR PROCEDURES F inal Result documented in this encounter Visit Diagnoses Not on filedocumented in this encounter Additional Health Concerns Assessment Noted Time PHQ-9 Depression Total Score: 16 023 8:14 AM EDT documented as of this encounter Care Teams Metal Polisher And Buffer Apprentice Relationship Specialty Start Date End Date Darnell French MD [address] [facility] 230 [place] [address] PCP - General Internal Medicine 05/04/23 Erum Hickman APRN-SKEET OPERATOR 112 [facility] 160 [place] [address] Nurse Practitioner Psychiatry 12/15/24 documented as of this encounter
--- OUTSIDE RECORDS SUMMARY | 2025-07-22 17:02 | XMS_ITS | Encounter Summary ---
Author Organization [facility] Address [address] [place] [address] Care Team Providers Care Kindergarten Classroom Teacher Name Role Phone Julio C Jarrett MD Primary Care Provider [phone] Erum Hickman BILINGUAL OPERATOR-HOME HEALTH CNA Unavailable Encounter Details Date Type Department Care Team (Late st Contact Info) Description 06/15/2024 Clinisync Result Encounter [facility] External Department Unsolicited [...] Allergy [address] [place] [address] Milton Arriaga MD [address] [place] [address] 08/27/2025 10:30 AM EDT Office Visit [facility] [address] [place] [address] Gillian-Erum Montero, BILINGUAL OPERATOR-HOME HEALTH CNA [address] [place] [address] 10/17/2025 11:30 AM EST Office Visit [facility] [address] [place] [address] Jacquie Velasco, BILINGUAL OPERATOR-HAT STOCK LAMINATING MACHINE OPERATOR [address] [facility] [place] [address] 01/10/2026 9:45 AM EST Office Visit [facility] [address] [place] [address] documented as of this encounter Procedures Procedure Name Priority Date/Time Associated Diagnosis Comments XR ANKLE LT MIN 3V 06/15/2024 5: 05 AM EDT documented in this encounter Results * XR ANKLE LT MIN 3V (06/15/2024 5:05 AM EDT) Anatomical Region Laterality Modality Other 06/15/2024 5:05 AM EDT Narrative 06/15/2024 5:08 AM EDT [address] [address] XRay Report Signed Patient: YARELIS SWENSON MR#: [id number] : 1970 Acct:[id number] Age/Sex: 54 / F ADM Date: 06/14/24 Loc: EC Attending Dr: Дмитрий Remy D.P.M. Ordering Physician: Дмитрий Remy D.P.M. Date of Service: 06/14/24 Procedure(s): XR ankle LT min 3V Accession Number(s): [id number] cc: JULIO C JARRETT ; Дмитрий Remy D.P.M. [place] [address] Patient Name: YARELIS SWENSON MRN: [id number] date: 1970 Sex: F Assigned Patient Location: Current Patient Location: Accession/Order Number: [id number] Exam Date: 06/14/2024 11:00 Report Date: 06/15/2024 05:05 At the request of: ДМИТРИЙ REMY Procedure: XR ankle LT min 3V PROCEDURE: XR ankle LT min 3V, XR foot LT min 3V HISTORY: LEFT ANKLE PAIN , heel pain COMPARISON: XR left ankle and foot 05/05/2024 FINDINGS: BONES:Evidence of prior Achilles tendon repair. Prominent degenerative enthesophytes at the plantar aponeurosis and Achilles tendon insertions into the calcaneus. Mild narrowing/degenerative changes of the first metatarsophalangeal joint. SOFT TISSUES:No visible soft tissue swelling. EFFUSION:None visible. OTHER: Negative. XR/XR ankle LT min 3V IMPRESSION: 1. Stable degenerative changes and postsurgical changes. No appreciable change or acute abnormality. Electronically authenticated by: ELKIN LEUNG Date: 06/15/2024 05:05 Dictated By: Elkin Leung M.D. Signed By: 06/15/24 0508 DD/ 0505 TD/TT: Car Sales Associate: Procedure Note Radiology, Radiologist, - 06/15/2024 [place] [id number] XRay Report Signed Patient: YARELIS SWENSON DMR#: [id number] : 1970Acct:[id number] Age/Sex: 54 / FADM Date: 06/14/24 Loc: EC Attending Dr: Дмитрий Remy D.P.M. Ordering Physician: Дмитрий Remy D.P.M. Date of Service: 06/14/24 Procedure(s): XR ankle LT min 3V Accession Number(s): [id number] cc: JULIO C JARRETT ; Дмитрий Remy D.P.M. [place] [id number] Patient Name: YARELIS SWENSON MRN: [id number] date: 1970 Sex: F Assigned Patient Location: Current Patient Location: Accession/Order Number: [id number] Exam Date: 06/14/2024 11:00 Report Date: 06/15/2024 05:05 At the request of: ДМИТРИЙ REMY Procedure: XR ankle LT min 3V PROCEDURE: XR ankle LT min 3V, XR foot LT min 3V HISTORY: LEFT ANKLE PAIN , heel pain COMPARISON: XR left ankle and foot 05/05/2024 FINDINGS: BONES:Evidence of prior Achilles tendon repair. Prominent degenerative enthesophytes at the plantar aponeurosis and Achilles tendon insertionsinto the calcaneus. Mild narrowing/degenerative changes of the first metatarsophalangeal joint. SOFT TISSUES:No visible soft tissue swelling. EFFUSION:None visible. OTHER: Negative. XR/XR ankle LT min 3V IMPRESSION: 1. Stable degenerative changes and postsurgical changes. No appreciablechange or acute abnormality. Electronically authenticated by: ELKIN LEUNG Date: 06/15/2024 05:05 Dictated By: Elkin Leung M.D. Signed By:06/15/24 0508 DD/ 0505 TD/TT: Car Sales Associate: Generic External Data Provider [facility] Final Result documented in this encounter Visit Diagnoses Not on filedocumented in this encounter Additional Health Concerns Assessment Noted Time PHQ-9 Depression Total Score: 16 023 8:14 AM EDT documented as of this encounter Care Teams Kindergarten Classroom Teacher Relationship Specialty Start Date End Date Julio C Jarrett MD [address] [facility] [address] [place] [address] PCP - General Internal Medicine 05/04/23 Erum Hickman APRN-HOME HEALTH CNA 112 [facility] 160 [place] [address] Nurse Practitioner Psychiatry 12/15/24 documented as of this encounter
--- OUTSIDE RECORDS SUMMARY | 2025-07-22 17:02 | XMS_ITS | Encounter Summary ---
Author Organization [facility] Address [address] [place] [address] Care Team Providers Care Senior Corporate Accountant Name Role Phone Julio C Jarrett MD Primary Care Provider [phone] Erum Hickman APRN-GAUGE CONTROLLER Unavailable Encounter Details Date Type Department Care [...] Allergy [address] [place] [address] Milton Arriaga MD [address] [place] [address] 08/27/2025 10:30 AM EDT Office Visit [facility] [address] [facility] [address] [place] [address] GillianErum Montero, UTILITY ASSEMBLER-GAUGE CONTROLLER [address] [place] [address] 10/17/2025 11:30 AM EST Office Visit [facility] [address] [place] [address] Jacquie Velasco, UTILITY ASSEMBLER-MAINTENANCE MILLWRIGHT [address] [facility] [place] [address] 01/10/2026 9:45 AM EST Office Visit [facility] [address] [place] [address] documented as of this encounter Procedures Procedure Name Priority Date/Time Associated Diagnosis Comments XR FOOT LT MIN 3V 05/08/2024 4:0 3 AM EDT documented in this encounter Results * XR FOOT LT MIN 3V (05/08/2024 4:03 AM EDT) Anatomical Region Laterality Modality Other 05/08/2024 4:03 AM EDT Narrative 05/08/2024 4:07 AM EDT [address] [address] XRay Report Signed Patient: YARELIS SWENSON MR#: [id number] : 1970 Acct:[id number] Age/Sex: 54 / F ADM Date: 05/05/24 Loc: EC Attending Dr: Дмитрий Remy D.P.M. Ordering Physician: Дмитрий Remy D.P.M. Date of Service: 05/05/24 Procedure(s): XR foot LT min 3V Accession Number(s): [id number] cc: JULIO C JARRETT ; Дмитрий Remy D.P.M. [place] [address] Patient Name: YARELIS SWENSON MRN: [id number] date: 1970 Sex: F Assigned Patient Location: Current Patient Location: Accession/Order Number: [id number] Exam Date: 05/05/2024 09:35 Report Date: 05/08/2024 04:03 At the request of: ДМИТРИЙ REMY Procedure: XR foot LT min 3V PROCEDURE: XR ankle LT [...] tissue swelling. EFFUSION:None visible. OTHER: Negative. XR/XR foot LT min 3V IMPRESSION: 1. No acute or specific findings to account for patient's symptoms. 2. Mild degenerative changes. Electronically authenticated by: ELKIN LEUNG Date: 05/08/2024 04:03 Dictated By: Elkin Leung M.D. Signed By: 05/08/24406 DD/ 2 TD/TT: Shank Tapper: Procedure Note Radiology, Radiologist, - 05/08/2024 [place] [address] XRay Report Signed Patient: YARELIS SWENSON DMR#: [id number] : 1970Acct:[id number] Age/Sex: 54 / FADM Date: 05/05/24 Loc: EC Attending Dr: Дмитрий Remy D.P.M. Ordering Physician: Дмитрий Remy D.P.M. Date of Service: 05/05/24 Procedure(s): XR foot LT min 3V Accession Number(s): [id number] cc: JULIO C JARRETT ; Дмитрий Remy D.P.M. [place] [address] Patient Name: YARELIS SWENSON MRN: [id number] date: 1970 Sex: F Assigned Patient Location: Current Patient Location: Accession/Order Number: [id number] Exam Date: 05/05/2024 09:35 Report Date: 05/08/2024 04:03 At the request of: ДМИТРИЙ REMY Procedure: XR foot LT min 3V PROCEDURE: XR ankle LT [...] tissue swelling. EFFUSION:None visible. OTHER: Negative. XR/XR foot LT min 3V IMPRESSION: 1. No acute or specific findings to account for patient's symptoms. 2. Mild degenerative changes. Electronically authenticated by: ELKIN LEUNG Date: 05/08/2024 04:03 Dictated By: Elkin Leung M.D. Signed By:05/08/24406 DD/ 2 TD/TT: Shank Tapper: us Generic External Data Provider [facility] Final Result documented in this encounter Visit Diagnoses Not on filedocumented in this encounter Additional Health Concerns Assessment Noted Time PHQ-9 Depression Total Score: 16 023 8:14 AM EDT documented as of this encounter Care Teams Senior Corporate Accountant Relationship Specialty Start Date End Date Julio C Jarrett MD [address] [facility] [address] [place] [address] PCP - General Internal Medicine 05/04/23 Erum Hickman, UTILITY ASSEMBLER-GAUGE CONTROLLER 112 [facility] 160 [place] [address] Nurse Practitioner Psychiatry 12/15/24 documented as of this encounter
--- OUTSIDE RECORDS SUMMARY | 2025-07-22 17:02 | XMS_ITS | Encounter Summary ---
Author Organization [facility] Address [address] [place] [address] Care Team Providers Care Technology Development Intern Name Role Phone Julio C Jarrett MD Primary Care Provider [phone] Erum Hickman ESCALATOR ATTENDANT-BONE CHAR KILN TENDER Unavailable Encounter Details Date Type Department Care [...] Allergy [address] [place] [address] Milton Arriaga MD [address] [place] [address] 08/27/2025 10:30 AM EDT Office Visit [facility] [address] [place] [address] Gillian-Erum Montero, ESCALATOR ATTENDANT-BONE CHAR KILN TENDER [address] [place] [address] 10/17/2025 11:30 AM EST Office Visit [facility] [address] [place] [address] Jacquie Velasco, ESCALATOR ATTENDANT-MANAGER LAN [address] [facility] [place] [address] 01/10/2026 9:45 AM EST Office Visit [facility] [address] [place] [address] documented as of this encounter Procedures Procedure Name Priority Date/Time Associated Diagnosis Comments XR FOOT LT MIN 3V 06/15/2024 5:0 5 AM EDT documented in this encounter Results * XR FOOT LT MIN 3V (06/15/2024 5:05 AM EDT) Anatomical Region Laterality Modality Other 06/15/2024 5:05 AM EDT Narrative 06/15/2024 5:08 AM EDT [address] [address] XRay Report Signed Patient: YARELIS SWENSON MR#: [id number] : 1970 Acct:[id number] Age/Sex: 54 / F ADM Date: 06/14/24 Loc: EC Attending Dr: Дмитрий Remy D.P.M. Ordering Physician: Дмитрий Remy D.P.M. Date of Service: 06/14/24 Procedure(s): XR foot LT min 3V Accession Number(s): [id number] cc: JULIO C JARRETT ; Дмитрий Remy D.P.M. [place] [address] Patient Name: YARELIS SWENSON MRN: [id number] date: 1970 Sex: F Assigned Patient Location: Current Patient Location: Accession/Order Number: [id number] Exam Date: 06/14/2024 11:00 Report Date: 06/15/2024 [...] XR/XR foot LT min 3V IMPRESSION: 1. Stable degenerative changes and postsurgical changes. No appreciable change or acute abnormality. Electronically authenticated by: ELKIN LEUNG Date: 06/15/2024 05:05 Dictated By: Elkin Leung M.D. Signed By: 06/15/24 0508 DD/ 0506 TD/TT: Systems Operator: Procedure Note Radiology, Radiologist, MD - 06/15/2024 The [place] [id number] XRay Report Signed Patient: YARELIS SWENSON DMR#: [id number] : 1970Acct:[id number] Age/Sex: 54 / FADM Date: 06/14/24 Loc: EC Attending Dr: Дмитрий Remy D.P.M. Ordering Physician: Дмитрий Remy D.P.M. Date of Service: 06/14/24 Procedure(s): XR foot LT min 3V Accession Number(s): [id number] cc: JULIO C JARRETT ; Дмитрий Remy D.P.M. The [place] [address] Patient Name: YARELIS SWENSON MRN: [id number] date: 1970 Sex: F Assigned Patient Location: Current Patient Location: Accession/Order Number: [id number] Exam Date: 06/14/2024 11:00 Report Date: 06/15/2024 [...] XR/XR foot LT min 3V IMPRESSION: 1. Stable degenerative changes and postsurgical changes. No appreciablechange or acute abnormality. Electronically authenticated by: ELKIN LEUNG Date: 06/15/2024 05:05 Dictated By: Elkin Leung M.D. Signed By:06/15/24 0508 DD/ 4 TD/TT: Systems Operator: Generic External Data Provider [facility] Final Result documented in this encounter Visit Diagnoses Not on filedocumented in this encounter Additional Health Concerns Assessment Noted Time PHQ-9 Depression Total Score: 16 023 8:14 AM EDT documented as of this encounter Care Teams Technology Development Intern Relationship Specialty Start Date End Date Julio C Jarrett MD [address] [facility] 230 [place] [address] PCP - General Internal Medicine 05/04/23 Erum Hickman APRN-BONE CHAR KILN TENDER 112 [facility] 160 [place] [address] Nurse Practitioner Psychiatry 12/15/24 documented as of this encounter
--- OUTSIDE RECORDS SUMMARY | 2025-07-22 17:02 | XMS_ITS | Encounter Summary ---
Author Organization [facility] Address [address] [facility] [place] [address] Care Team Providers Care Senior Stack Engineer Name Role Phone Darnell French MD Primary Care Provider [phone] Erum Hickman APRN-BED TEACHER Unavailable Encounter Details Date Type Department Care Team (Late st Contact Info) Description 02/07/2024 Orders Only [facility] [address] [facility] [address] [place] [address] A, Unknown Practice [address] [place], [place] [id number] Social History Tobacco Use Types Packs/Day Years [...] Answer Date Recorded Patient Health Questionnaire-2 Score 1 02/02/2024 Exercise Vital Sign Answer Date Recorde d [...] Allergy [address] [place] [address] Milton Arriaga MD [address] [place] [address] 08/27/2025 10:30 AM EDT Office Visit [facility] [address] [facility] 160 [place] [address] Erum Hickman, NATIONAL SALES DIRECTOR-BED TEACHER [address] [facility] 160 [place] [address] 10/17/2025 11:30 AM EST Office Visit [facility] [address] [place] [address] Jacquie Velasco, NATIONAL SALES DIRECTOR-HOGSHEAD LINER [address] [facility] [place] [address] 01/10/2026 9:45 AM EST Office Visit [facility] [address] [place] [address] documented as of this encounter Procedures Procedure Name Priority Date/Time Associated Diagnosis Comments SCANNED LABS Routine 01/21/2024 9:31 AM EST TRANSTHORACIC ECHO (TTE) COMPLETE Routine 01/21/2024 9:25 AM EST XR CHEST 1 VIEW Routine 01/21/2024 9:[address] ANGIO HEAD NECK Routine 01/21/2024 9: [address] HEAD WO IV CONTRAST Routine 9:21 AM EST MRI HEAD/BRAIN WO CONTRAS Routine 2023 9:17 AM EST documented in this encounter Results * SCANNED LABS (01/21/2024 9:31 AM EST) us Unknown Practice A LAB CHG PERFORMABLES Final Re sult * Transthoracic echo (TTE) complete (01/21/2024 9:25 AM EST) Anatomical Region Laterality Modality Heart Ultrasound us Unknown Practice A CV ECHO PROCEDURES Final Resu lt * XR chest 1 view (01/21/2024 9:24 AM EST) Anatomical Region Laterality Modality Chest Radiographic Annalee ging us Unknown Practice A IMG XR PROCEDURES Final Resul t * CT angiogram head and neck (01/21/2024 9:22 AM EST) Anatomical Region Laterality Modality Head, Neck Computed Tomogra phy us Unknown Practice A IMG CT PROCEDURES Final Resul t * CT head wo IV contrast (01/21/2024 9:21 AM EST) Anatomical Region Laterality Modality Head, Neck Computed Tomogra phy us Unknown Practice A IMG CT PROCEDURES Final Resul t * MRI HEAD/BRAIN WO CONTRAS (01/21/2024 9:17 AM EST) Anatomical Region Laterality Modality Radiographic Annalee ging us Unknown Practice A IMG XR PROCEDURES Final Resul t documented in this encounter Visit Diagnoses Not on filedocumented in this encounter Additional Health Concerns Assessment Noted Time PHQ-9 Depression Total Score: 16 06/12/2 023 8:14 AM EDT documented as of this encounter Care Teams Senior Stack Engineer Relationship Specialty Start Date End Date Darnell French MD [address] [facility] 230 [place] [address] PCP - General Internal Medicine 05/04/23 Erum Hickman APRN-BED TEACHER [address] [facility] 160 [place] [address] Nurse Practitioner Psychiatry 12/15/24 documented as of this encounter
--- OUTSIDE RECORDS SUMMARY | 2025-07-22 17:02 | XMS_ITS | Clinical Summary ---
Author Organization [facility] Address [address] [place] [address] Phone Care Team Providers Care Fine Arts Packer Name Role Phone Unavailable Primary Care Provider [...] Date Last Done Comments CT Colonography 1970 Colonoscopy 1970 Colorectal Cancer Screening 1968 FIT-DNA (Cologuard) 1968 FIT 1970 HIV Screening 1970 Lipid Panel 1968 Sigmoidoscopy 1970 Yearly Adult Physical 1968 MMR Vaccines (1 of 1 - Stand saad series) 01/26/1969 Hepatitis C Screening 01/26/1986 Hepatitis B Vaccines (1 of 3 - 19+ 3-dose series) 01/26/1987 Cervical Cancer Screening 01/26/1989 HPV/Cotest 01/26/1989 Pap Smear 01/26/1989 DTaP/Tdap/Td Vaccines (1 - Tdap) 01/26/1990 Mammogram 2008 Pneumococcal Vaccine (1 of 1 - PCV) 01/26/2018 Zoster Vaccines (1 of 2) 01/26/2018 COVID-19 Vaccine (1 - 2023-2 5 season) 2024 Influenza Vaccine (#1) 2025 HIB Vaccines Aged Out No longer eligi ble based on patient's age to complete this topic HPV Vaccines Aged Out No longer eligi ble based on patient's age to complete this topic Hepatitis A Vaccines Aged Out No long er eligible based on patient's age to complete this topic IPV Vaccines Aged Out No longer eligi ble based on patient's age to complete this topic Meningococcal Vaccine Aged Out No evelyn portia eligible based on patient's age to complete this topic Rotavirus Vaccines Aged Out No longer eligible based on patient's age to complete this topic Insurance
--- OUTSIDE RECORDS SUMMARY | 2025-07-22 17:02 | XMS_ITS | Encounter Summary ---
Author Organization [facility] Address [address] [place] [address] Care Team Providers Care Spice Room Worker Name Role Phone Julio C Jarrett MD Primary Care Provider [phone] Erum Hickman APRN-PACKAGE LIFT OPERATOR Unavailable Encounter Details Date Type Department Care Team (Late st Contact Info) Description 05/19/2024 Clinisync Result Encounter [facility] External Department Unsolicited [...] Allergy [address] [place] [address] Milton Arriaga MD [address] [place] [address] 08/27/2025 10:30 AM EDT Office Visit [facility] [address] [facility] [address] [place] [address] Erum Hickman, CIVIL TRANSPORTATION ENGINEER-PACKAGE LIFT OPERATOR [address] [facility] 160 [place] [address] 10/17/2025 11:30 AM EST Office Visit [facility] [address] [place] [address] Jacquie Velasco, CIVIL TRANSPORTATION ENGINEER-LEGAL COUNSEL [address] [facility] [place] [address] 01/10/2026 9:45 AM EST Office Visit [facility] [address] [place] [address] documented as of this encounter Procedures Procedure Name Priority Date/Time Associated Diagnosis Comments XR FOOT LT MIN 3V 05/19/2024 6:0 7 AM EDT documented in this encounter Results * XR FOOT LT MIN 3V (05/19/2024 6:07 AM EDT) Anatomical Region Laterality Modality Other 05/19/2024 6:07 AM EDT Narrative 05/19/2024 6:10 AM EDT [address] [address] XRay Report Signed Patient: YARELIS SWENSON MR#: [id number] : 1970 Acct:[id number] Age/Sex: 54 / F ADM Date: 05/18/24 Loc: EC Attending Dr: Savannah Valenzuela Ordering Physician: Savannah Valenzuela Date of Service: 05/18/24 Procedure(s): XR foot LT min 3V Accession Number(s): [id number] cc: JULIO C JARRETT ; Savannah Valenzuela The [address] [address] Patient Name: YARELIS SWENSON MRN: [id number] date: 1970 Sex: F Assigned Patient Location: Current Patient Location: Accession/Order Number: [id number] Exam Date: 05/18/2024 09:30 Report Date: 05/19/2024 06:07 At the request of: SAVANNAH VALENZUELA Procedure: XR foot LT min 3V PROCEDURE: XR foot LT min 3V HISTORY: LEFT FOOT PAIN COMPARISON: XR foot left 05/05/2024 FINDINGS: BONES:Mild narrowing of the first metatarsophalangeal joint. Prominent degenerative enthesopathic spurring of the calcaneus. No evidence of prior Achilles tendon repair. SOFT TISSUES:No visible soft tissue swelling. EFFUSION:None visible. OTHER: Negative. XR/XR foot LT min 3V IMPRESSION: 1. Stable surgical changes and mild degenerative changes. Electronically authenticated by: ELKIN LEUNG Date: 05/19/2024 06:07 Dictated By: Elkin Leung M.D. Signed By: 05/19/2410 DD/ 6 TD/TT: Radio Station Manager: Procedure Note Radiology, Radiologist, MD - 05/19/[address] [place] [address] XRay Report Signed Patient: YARELIS SWENSON DMR#: [id number] : 1970Acct:[id number] Age/Sex: 54 / FADM Date: 05/18/24 Loc: EC Attending Dr: Savannah Valenzuela Ordering Physician: Savannah Valenzuela Date of Service: 05/18/24 Procedure(s): XR foot LT min 3V Accession Number(s): [id number] cc: JULIO C JARRETT ; Savannah Valenzuela [place] [id number] Patient Name: YARELIS SWENSON MRN: [id number] date: 1970 Sex: F Assigned Patient Location: Current Patient Location: Accession/Order Number: [id number] Exam Date: 05/18/2024 09:30 Report Date: 05/19/2024 06:07 At the request of: SAVANNAH VALENZUELA Procedure: XR foot LT min 3V PROCEDURE: XR foot LT min 3V HISTORY: LEFT FOOT PAIN COMPARISON: XR foot left 05/05/2024 FINDINGS: BONES:Mild narrowing of the first metatarsophalangeal joint. Prominent degenerative enthesopathic spurring of the calcaneus. No evidence of prior Achilles tendon repair. SOFT TISSUES:No visible soft tissue swelling. EFFUSION:None visible. OTHER: Negative. XR/XR foot LT min 3V IMPRESSION: 1. Stable surgical changes and mild degenerative changes. Electronically authenticated by: ELKIN LEUNG Date: 05/19/2024 06:07 Dictated By: Elkin Leung M.D. Signed By:05/19/24 0610 DD/ 0607 TD/TT: Radio Station Manager: us Generic External Data Provider [facility] Final Result documented in this encounter Visit Diagnoses Not on filedocumented in this encounter Additional Health Concerns Assessment Noted Time PHQ-9 Depression Total Score: 16 05/10/ 023 8:14 AM EDT documented as of this encounter Care Teams Spice Room Worker Relationship Specialty Start Date End Date Julio C Jarrett MD [address] [place] [address] PCP - General Internal Medicine 05/04/23 Erum Hickman APRN-PACKAGE LIFT OPERATOR [address] [address] Nurse Practitioner Psychiatry 12/15/24 documented as of this encounter
--- OUTSIDE RECORDS SUMMARY | 2025-07-22 17:02 | XMS_ITS | Encounter Summary ---
Author Organization [facility] Address [address] [facility] [place] [address] Care Team Providers Care Technology And Engineering Teacher Name Role Phone Darnell French MD Primary Care Provider [phone] Erum Hickman DIRECTOR OF CATERING-AESTHETICIAN Unavailable Encounter Details Date Type Department Care Team (Late st Contact Info) Description 02/28/2024 Orders Only [facility] [address] [facility] [address] [place] [address] A, Unknown Practice [address] [place], [place] [address] Social History Tobacco Use Types Packs/Day Years [...] [address] [place] [address] Milton Arriaga MD [address] [place] [address] 08/27/2025 10:30 AM EDT Office Visit [facility] [address] [facility] 160 [place] [address] Erum Hickman, DIRECTOR OF CATERING-AESTHETICIAN [address] [place] [address] 10/17/2025 11:30 AM EST Office Visit [facility] [address] [place] [address] Jacquie Velasco, DIRECTOR OF CATERING-SHEET TAKER [address] [facility] [place] [address] 01/10/2026 9:45 AM EST Office Visit [facility] [address] [place] [address] documented as of this encounter Procedures Procedure Name Priority Date/Time Associated Diagnosis Comments COLONOSCOPY Routine 02/25/2024 8:22 AM EDT documented in this encounter Results * Colonoscopy (02/25/2024 8:22 AM EDT) Anatomical Region Laterality Modality Endoscopy us Unknown Practice A ENDOSCOPY PROCEDURE ORDERABLE S Final Result documented in this encounter Visit Diagnoses Not on filedocumented in this encounter Additional Health Concerns Assessment Noted Time PHQ-9 Depression Total Score: 16 023 8:14 AM EDT documented as of this encounter Care Teams Technology And Engineering Teacher Relationship Specialty Start Date End Date Darnell French MD [address] [place] [address] PCP - General Internal Medicine 05/04/23 Erum Hickman APRN-AESTHETICIAN [address] [place] [address] Nurse Practitioner Psychiatry 12/15/24 documented as of this encounter
--- OUTSIDE RECORDS SUMMARY | 2025-07-22 17:02 | XMS_ITS | Encounter Summary ---
Author Organization [facility] Address [address] [place] [address] Care Team Providers Care Manager Of Project Management Name Role Phone Darnell French MD Primary Care Provider [phone] Erum Hickman REHAB PHYSICIAN-DINING ROOM ATTENDANT Unavailable Encounter Details Date Type Department Care Team (Late st Contact Info) Description 05/06/2023 Abstract [facility] [address] [address] Masoud Flores MD [address] [facility] [address] [place] [address] [place] [id number] Social History Tobacco Use Types Packs/Day Years Used Date Smoking Tobacco: Never Smokeless Tobacco: Never Tobacco Cessation:Counseling Given: Not Answered Alcohol Use Standard Drinks/Week Comments Yes 0 (1 standard drink = 0.6 oz pure alcohol) caffeine: occasional coke, once in a while, 1 a day AUDIT-C Answer Date Recorded Q1: How often do you have a drink containing alc ohol? Monthly or less 04/02/2023 Q2: How many drinks containi ng alcohol do you have on a typical day when you are drinking? 1 or 2 04/02/2023 Q3: How often do you have si x or more drinks on one occasion? Less than monthly 04/02/2023 PHQ-2 Answer Date Recorded Patient Health Questionnaire-2 Score 6 05/10/2023 Exercise Vital Sign Answer Date Recorde d [...] have received? High school graduate 05/06/2023 Comments Unknown Sex and Gender Information Value [...] Allergy [address] [place] [address] Milton Arriaga MD [address] [place] [address] 08/27/2025 10:30 AM EDT Office Visit [facility] [address] [facility] 160 [place] [address] Erum Hickman, REHAB PHYSICIAN-DINING ROOM ATTENDANT [address] [facility] 160 [place] [address] 10/17/2025 11:30 AM EST Office Visit [facility] [address] [place] [address] Jacquie Velasco, REHAB PHYSICIAN-TALENT ACQUISITION OPERATIONS MANAGER [address] [facility] [place] [address] 01/10/2026 9:45 AM EST Office Visit [facility] [address] [place] [address] documented as of this encounter Visit Diagnoses Not on filedocumented in this encounter Care Teams Manager Of Project Management Relationship Specialty Start Date End Date Darnell French MD [address] [facility] 230 [place] [address] PCP - General Internal Medicine 05/04/23 Erum Hickman, REHAB PHYSICIAN-DINING ROOM ATTENDANT 112 [facility] 160 [place] [address] Nurse Practitioner Psychiatry 12/15/24 documented as of this encounter
--- OUTSIDE RECORDS SUMMARY | 2025-07-22 17:03 | XMS_ITS | Encounter Summary ---
Author Organization [facility] Address [address] [place] [address] Care Team Providers Care Trip Motor Operator Name Role Phone Darnell French MD Primary Care Provider [phone] Erum Hickman APRN-HEEL VARNISHER Unavailable Encounter Details Date Type Department Care Team (Late st Contact Info) Description 06/23/2023 Abstract [facility] [address] [address] Val Franco, PROGRAM AND RESEARCH COORDINATOR [address] [place] [address] Social History Tobacco Use Types Packs/Day Years Used Date Smoking Tobacco: Never Smokeless Tobacco: Never Tobacco Cessation:Counseling Given: Not Answered Alcohol Use Standard Drinks/Week Comments Yes 1 (1 standard drink = 0.6 oz pure [...] Date Recorded Patient Health Questionnaire-2 Score 0 06/21/2023 Exercise Vital Sign Answer Date Recorde d [...] Allergy [address] [place] [address] Milton Arriaga MD [address] [place] [address] 08/27/2025 10:30 AM EDT Office Visit [facility] [address] [facility] [address] [place] [address] Erum Hickman, ARCHITECTURAL COATING FINISHER-HEEL VARNISHER [address] [facility] 160 [place] [address] 10/17/2025 11:30 AM EST Office Visit [facility] [address] [place] [address] Jacquie Velasco, ARCHITECTURAL COATING FINISHER-AUTO MECHANIC [address] [facility] [address] [place], [place] [address] 01/10/2026 9:45 AM EST Office Visit [facility] [address] [place] [address] documented as of this encounter Visit Diagnoses Not on filedocumented in this encounter Additional Health Concerns Assessment Noted Time PHQ-9 Depression Total Score: 16 023 8:14 AM EDT documented as of this encounter Care Teams Trip Motor Operator Relationship Specialty Start Date End Date Darnell French MD [address] [facility] 230 [place] [address] PCP - General Internal Medicine 05/04/23 Erum Hickman APRN-HEEL VARNISHER 112 [facility] 160 [place] [address] Nurse Practitioner Psychiatry 12/15/24 documented as of this encounter
--- OUTSIDE RECORDS SUMMARY | 2025-07-22 17:03 | XMS_ITS | Encounter Summary ---
Author Organization [facility] Address [address] [place] [address] Care Team Providers Care Water Taxi Captain Name Role Phone Darnell French MD Primary Care Provider [phone] Erum Hickman SINGING WAITER OR WAITRESS-HOME CARE PROVIDER Unavailable Reason for Visit * Reason Comments Med Refill Encounter Details Date Type Department Care Team (Late st Contact Info) Description 07/22/2025 Refill [facility] [address] [facility] [address] [place] [address] Olimpia Sim PA [address] [facility] [address] [place] [address] Idiopathic peripheral neuropathy Social History Tobacco Use Types Packs/Day Years [...] Allergy [address] [place] [address] Milton Arriaga MD [address] [place] [address] 08/27/2025 10:30 AM EDT Office Visit [facility] [address] [facility] 160 [place] [address] Erum Hickman, SINGING WAITER OR WAITRESS-HOME CARE PROVIDER [address] [place] [address] [place] [address] 10/17/2025 11:30 AM EST Office Visit [facility] [address] [place] [address] Jacquie Velasco, SINGING WAITER OR WAITRESS-AIRCRAFT SHEET METAL MECHANIC [address] [facility] [place] [address] 01/10/2026 9:45 AM EST Office Visit [facility] [address] [place] [address] documented as of this encounter Visit Diagnoses Diagnosis Idiopathic peripheral neuropathy Unspecified hereditary and idiopathic peripheral neuropathy documented in this encounter Additional Health Concerns Assessment Noted Time PHQ-9 Depression Total Score: 0 02/13/20 25 1:08 PM EDT documented as of this encounter Care Teams Water Taxi Captain Relationship Specialty Start Date End Date Darnell French MD [address] [facility] 230 [place] [address] PCP - General Internal Medicine 05/04/23 Erum Hickman APRN-HOME CARE PROVIDER 112 [facility] 160 [place] [address] Nurse Practitioner Psychiatry 12/15/24 documented as of this encounter
--- OUTSIDE RECORDS SUMMARY | 2025-07-22 17:03 | XMS_ITS | Encounter Summary ---
Author Organization [facility] Address [address] [facility] [place] [address] Care Team Providers Care Electrical Assemblies Supervisor Name Role Phone Darnell French MD Primary Care Provider [phone] Erum Hickman SANITATION DIRECTOR-CLEANING ASSOCIATE Unavailable Encounter Details Date Type Department Care Team (Late st Contact Info) Description 07/21/2023 Orders Only [facility] [address] [facility] [address] [place] [address] A, Unknown Practice [address] [place], [place] [id number] Social History Tobacco Use Types Packs/Day Years Used Date Smoking Tobacco: Never Smokeless Tobacco: Never Alcohol Use Standard Drinks/Week Comments Yes 1 [...] Date Recorded Patient Health Questionnaire-2 Score 0 07/19/2023 Exercise Vital Sign Answer Date Recorde d [...] Allergy [address] [place] [address] Milton Arriaga MD [address] [place] [address] 08/27/2025 10:30 AM EDT Office Visit [facility] [address] [facility] [address] [place] [phone] Erum Hickman, SANITATION DIRECTOR-CLEANING ASSOCIATE [address] [facility] [address] [place] [address] 10/17/2025 11:30 AM EST Office Visit [facility] [address] [place] [address] Jacquie Velasco, SANITATION DIRECTOR-MANAGER OF TRAINING [address] [facility] [address] [place], [place] [id number] 01/10/2026 9:45 AM EST Office Visit [facility] [address] [place] [address] documented as of this encounter Procedures Procedure Name Priority Date/Time Associated Diagnosis Comments XR ANKLE 3+ VIEWS LEFT Routine 07/21/2023 10:05 AM EDT documented in this encounter Results * XR ankle 3+ views left (07/21/2023 10:05 AM EDT) Anatomical Region Laterality Modality Lower Extremities, Ankle Left Radiogr aphic Imaging us Unknown Practice A IMG XR PROCEDURES Final Resul t documented in this encounter Visit Diagnoses Not on filedocumented in this encounter Additional Health Concerns Assessment Noted Time PHQ-9 Depression Total Score: 16 023 8:14 AM EDT documented as of this encounter Care Teams Electrical Assemblies Supervisor Relationship Specialty Start Date End Date Darnell French MD [address] [facility] [address] [place] [address] PCP - General Internal Medicine 05/04/23 Erum Hickman APRN-CLEANING ASSOCIATE [address] [facility] [address] [place] [address] Nurse Practitioner Psychiatry 12/15/24 documented as of this encounter
--- OUTSIDE RECORDS SUMMARY | 2025-07-22 17:03 | XMS_ITS | Encounter Summary ---
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 Not on file Not o n file Not on file documented as of this encounter Plan of Treatment Upcoming Encounters Date Type Department Care Team (Late st Contact Info) Description 07/23/2025 11:20 AM EDT Office Visit [facility] [address] [place] [address] Milton Arriaga MD [address] [place] [address] 08/27/2025 10:30 AM EDT Office Visit [facility] [address] [place] [address] Erum Hickman, DRAG SEINER-WEB SYSTEMS DEVELOPER [address] [place] [address] 10/17/2025 11:30 AM EST Office Visit [facility] [place] [facility] [address] [place] [address] Jacquie Velasco, DRAG SEINER-PSYCHOLOGICAL TESTS SALES AGENT [address] [facility] [place] [address] 01/10/2026 9:45 AM EST Office Visit [facility] [place] [facility] [address] [place] [address] documented as of this encounter Visit Diagnoses Not on filedocumented in this encounter Additional Health Concerns Assessment Noted Time PHQ-9 Depression Total Score: 0 02/13/20 25 1:08 PM EDT documented as of this encounter Care Teams Java Programmer Analyst Relationship Specialty Start Date End Date Darnell French MD [address] [place] [address] PCP - General Internal Medicine 05/04/23 Erum Hickman APRN-WEB SYSTEMS DEVELOPER [address] [facility] 160 [place] [address] Nurse Practitioner Psychiatry 12/15/24 documented as of this encounter
--- OUTSIDE RECORDS SUMMARY | 2025-07-22 17:03 | XMS_ITS | Encounter Summary ---
Author Organization [facility] Address [address] [place] [address] Care Team Providers Care Safety Counselor Name Role Phone Darnell French MD Primary Care Provider [phone] Erum Hickman TITLE I COORDINATOR-MANAGER CASE MANAGEMENT Unavailable Reason for Visit * Reason Comments Med Refill Encounter Details Date Type Department Care Team (Late st Contact Info) Description 12/28/2023 Refill [facility] [address] [facility] [address] [place] [address] Erum Hickman, TITLE I COORDINATOR-MANAGER CASE MANAGEMENT [address] [facility] 160 [place] [address] Social History Tobacco Use Types Packs/Day Years [...] Date Recorded Patient Health Questionnaire-2 Score 0 11/30/2023 Exercise Vital Sign Answer Date Recorde d [...] Allergy [address] [place] [address] Milton Arriaga MD [address] [place] [address] 08/27/2025 10:30 AM EDT Office Visit [facility] [address] [facility] [address] [place] [phone] Erum Hickman, TITLE I COORDINATOR-MANAGER CASE MANAGEMENT [address] [facility] 160 [place] [address] 10/17/2025 11:30 AM EST Office Visit [facility] [address] [place] [address] Jacquie Velasco, TITLE I COORDINATOR-HELPER ELECTRICAL [address] [facility] [place] [address] 01/10/2026 9:45 AM EST Office Visit [facility] [address] [place] [address] documented as of this encounter Visit Diagnoses Not on filedocumented in this encounter Additional Health Concerns Assessment Noted Time PHQ-9 Depression Total Score: 16 023 8:14 AM EDT documented as of this encounter Care Teams Safety Counselor Relationship Specialty Start Date End Date Darnell French MD [address] [facility] [address] [place] [address] PCP - General Internal Medicine 05/04/23 Erum Hickman APRN-MANAGER CASE MANAGEMENT [address] [facility] 160 [place] [address] Nurse Practitioner Psychiatry 12/15/24 documented as of this encounter
--- OUTSIDE RECORDS SUMMARY | 2025-07-22 17:03 | XMS_ITS | Encounter Summary ---
Author Organization [facility] Address [address] [place] [address] Care Team Providers Care Secure Software Assessor Name Role Phone Darnell French MD Primary Care Provider [phone] Erum Hickman LEAF STAMPER-INSOLE TOE SNIPPING MACHINE OPERATOR Unavailable Encounter Details Date Type Department Care Team (Late st Contact Info) Description 09/25/2023 Abstract [facility] [address] [phone] Masoud Flores MD [address] [facility] [address] [place] [address] [place] [id number] Social History Tobacco Use Types Packs/Day Years [...] Date Recorded Patient Health Questionnaire-2 Score 0 09/13/2023 Exercise Vital Sign Answer Date Recorde d [...] Allergy [address] [place] [address] Milton Arriaga MD [address] [place] [address] 08/27/2025 10:30 AM EDT Office Visit [facility] [address] [facility] [address] [place] [phone] Erum Hickman, LEAF STAMPER-INSOLE TOE SNIPPING MACHINE OPERATOR [address] [facility] [address] [place] [address] 10/17/2025 11:30 AM EST Office Visit [facility] [address] [place] [address] Jacquie Velasco, LEAF STAMPER-JAVASCRIPT DEVELOPER [address] [facility] [place] [address] 01/10/2026 9:45 AM EST Office Visit [facility] [address] [place] [address] documented as of this encounter Visit Diagnoses Not on filedocumented in this encounter Additional Health Concerns Assessment Noted Time PHQ-9 Depression Total Score: 16 023 8:14 AM EDT documented as of this encounter Care Teams Secure Software Assessor Relationship Specialty Start Date End Date Darnell French MD [address] [facility] [address] [place] [address] PCP - General Internal Medicine 05/04/23 Erum Hickman APRN-INSOLE TOE SNIPPING MACHINE OPERATOR [address] [facility] [address] [place] [address] Nurse Practitioner Psychiatry 12/15/24 documented as of this encounter
--- OUTSIDE RECORDS SUMMARY | 2025-07-22 17:03 | XMS_ITS | CCD ---
Author Organization [facility] ion Partnership [facility] Care Team Providers Care Recruiter Coordinator Name Role Phone TRABOULSSI, MOURHAF Unavailable Unavailable VERONA, АНДРЕЙ Unavailable Unavailable TRABOULSSI, MOURHAF Unavailable Unavailable EVRONA, АНДРЕЙ Unavailable Unavailable Britney Betancourt Unavailable Abel Wan Unavailable MD Julio C Jarrett Primary Care Provider [phone] VANESSA Wan Attending Provider MD Julio C Jarrett Attending Provider Abel Hurst Unavailable MD Julio C Jarrett Primary Care Provider MD Julio C Jarrett Attending Provider ДМИТРИЙ RÍOS Attending Unavailable ДМИТРИЙ RÍOS Consulting Unavailable ДМИТРИЙ RÍOS Admitting Unavailable MANOLO, DR BUNCH Primary Care Unavailable ARLENE TORRES Consulting Unavailable MANOLO, DR BUNCH Primary Care Unavailable ДМИТРИЙ RÍOS Attending Unavailable ДМИТРИЙ RÍOS Consulting Unavailable ДМИТРИЙ RÍOS Admitting Unavailable ARLENE TORRES Consulting Unavailable ДМИТРИЙ RÍOS Attending Unavailable ДМИТРИЙ RÍOS Consulting Unavailable ДМИТРИЙ RÍOS Admitting Unavailable MANOLO, DR BUNCH Primary Care Unavailable TAMMY ., IVANIA PEREZ Consulting Unavailable SHANA LUKE Consulting Unavailable GABE MCDANIEL Consulting Unavailable ДМИТРИЙ RÍOS Attending Unavailable ДМИТРИЙ RÍOS Admitting Unavailable MANOLO, DR BUNCH Primary Care Unavailable AMELIE MARKS Admitting Unavailable AMELIE MARKS Attending Unavailable AMELIE MARKS Consulting Unavailable MANOLO, DR BUNCH Primary Care Unavailable JOEY MENEZES Consulting Unavailable PAY ., DR ESTEVES Admitting Unavailable PAY ., DR ESTEVES Consulting Unavailable MANOLO, DR BUNCH Primary Care Unavailable PAY ., DR ESTEVES Attending Unavailable SHELBY ECHAVARRIA Consulting Unavailable GIRMA, DR DELONTE Shannon Admitting Unavailbenjamin RAYO, DR DELONTE Shannon Attending Unavailbenjamin RAYO, DR DELONTE Shannon Consulting Unavailabl e MANOLO, DR BUNCH Primary Care Unavailable LUMBER BRIDGE, DR WILLIAM Cedeno Consulting Unavailable JANNETTE QUINN Consulting Unavailable MARKER ., DR MARINO Admitting Unavailable MANOLO, DR BUNCH Primary Care Unavailable MARKER ., DR MARINO Attending Unavailable MARKER ., DR MARINO Consulting Unavailable LING, SUNSHINE Consulting Unavailable DUKE MORRIS Attending Unavailable MD Julio C Jarrett Primary Care Provider [phone] RENAE Ríos Attending Provider MD Duke Morris Attending Provider NO FAMILY, PHYSICIAN Primary Care Provider Unava ilable RENAE Ríos Attending Provider MD Julio C Jarrett Primary Care Provider [phone] LATRICE Marie Emergency Provider MD Michael Wells Admit Provider MD Michael Wells Attending Provider Gina Wu Other Provider Unavailable DO Isela Snider Other Provider MD Elkin Mcmahon Other Provider DO Ru Pearce Other Provider Erinn [facility]- [place] Other Provider DO Arturo Sow Other Provider MARK Villanueva Other Provider JUN Franco-Mary Ramsay Other Provider MARK Cordon-MASTER MACHINIST-C Chely Brown Other Provider MD Julio C Jarrett Primary Care Provider LATRICE Marie Emergency Provider MD Michael Wells Admit Provider [phone] MD Michael Wells Attending Provider Gina Wu Other Provider Unavailable DO Isela Snider Other Provider MD Elkin Mcmahon Other Provider DO Ru Pearce Other Provider Erinn, ANP- [place] Other Provider DO Arturo Sow M Other Provider MARK Villanueva Other Provider [phone] Salvador [employer] MEMBER-C Emily S Other Provider MARK Cordon-MASTER MACHINIST-C Chely Brown Other Provider RENAE Ríos Attending Provider MD Ayaan Pulido Attending Provider [phone] MD Julio C Jarrett Primary Care Provider [phone] RENAE Ríos Attending Provider [phone] RENAE Ríso Attending Provider MD Julio C Jarrett Primary Care Provider [phone] MD Julio C Jarrett Primary Care Provider RENAE Ríos Attending Provider Julio C Jarrett MD Primary Care Provider Julio C Jarrett MD Primary Care Provider Дмитрий Ríos DPM Attending Provider [phone] Maik Mcmillan DO Attending Provider Gillian-Winston CAREER LAW CLERK-[facility], [place] Joseph Unavailable Julio C Jarrett MD Primary Care Provider Ana Chamberlain MD Emergency Provider [phone] Дмитрий Ríos Attending Unavailable Дмитрий Ríos Admitting Unavailable Julio C Jarrett Primary Care Unavailable Julio C Jarrett Primary Care Unavailable Дмитрий Ríos Attending Unavailable Дмитрий Ríos Admitting Unavailable Maik Mcmillan Attending Unavailable Maik Mcmillan Admitting Unavailable Julio C Jarrett Primary Care Unavailable Manolo, Julio C Primary Care Unavailable Ana Chamberlain Attending Unavailable Ana Chamberlain Admitting Unavailable Daniela Rizvi Primary Care Unavailable Neeraj Saurez Attending Unavailable Neeraj Suarez Admitting Unavailable GILLIAN-NOSSEK, ROVERTO Joseph Attending Unavailab JULIO C Bob Attending Unavailable GILLIAN-NOSSEK, ROVERTO Joseph Attending Unavailab le GILLIAN-NOSSEK, ROVERTO Joseph Attending Unavailab QUAN Srivastava Attending Unavailable RISALITIRHIANNON Attending Unavailable RISALIRHIANNON MARTE Referring Unavailable GILLIAN-NOSSEK, ROVERTO Joseph Attending Unavailab le DIDIONJACQUIE Attending Unavailable GILLIAN-NOSSEK, ROVERTO Joseph Attending Unavailab le WINDNAROVERTO CARLTON Attending Unavailable GILLIAN-NOSSEK, ROVERTO M Referring Unavailab le OFE MILES Attending Unavailable GILLIAN-NOSSEK, ROVERTO M Attending Unavailab le RAMBASEROSHAN Stoddard Attending Unavailable WINDKAROLYN, ROVERTO Hernandez Attending Unavailable GILLIAN-NOSSEK, ROVERTO Joseph Attending Unavailab JULIO C Bob Referring Unavailable DIDJACQUIE RAZA Attending Unavailable RISALITI, RHIANNON Lind Attending Unavailable JULIO C JARRETT Referring Unavailable GILLIAN-NOSSEK, ROVERTO Joseph Attending Unavailab le Unavailable Unavailable Unavailable Allergies Allergy Classification Reported Allergen(s) Allergy Type Date of Onset Reaction(s) Facility (20 sources) Amoxicillin; Translations: [amoxicillin] Drug Allergy 03-15-20 18 rash, Hives [facility] (20 sources) oxyCODONE Drug Allergy 03-15-20 18 GI intolerance [facility] (5 sources) Acetaminophen / oxyCODONE Drug Allergy vomiting [facility] Other (15 sources) SOAPS AND PERFUMES Propensity to adverse reactions 01-21-20 24 Unknown, Rash [facility] (1 source) Acetaminophen / oxyCODONE Drug Allergy 11-20-20 19 [facility] (20 sources) Acetaminophen Drug Allergy 01-21-20 24 GI intolerance [facility] (20 sources) buPROPion Drug Allergy 04-02-20 23 [facility] (14 sources) Losartan Drug Allergy 06-05-20 Angioedema [facility] (1 source) Penicillin; Translations: [penicillin] Drug Allergy [facility]ository Medications Current Medications Medication Drug Class(es) Dates Sig (Normalized) Sig (Original) Acetaminophen (20 sources) Acetaminophen (T YLENOL 8 HOUR PO) Active Acetaminophen (T YLENOL 8 HOUR PO) Tylenol Active aspirin 81 mg delayed release oral tablet (20 sources) Platelet Aggregation Inhibitor, Nonsteroidal Anti-inflammatory Drug Start: 01-22-2024 take 1 tablet by mouth once daily Aspirin Low Dose 81 MG EC tablet Take 81 mg by mouth Daily 01/22/2024 Active 24 hr buPROPion hydrochloride 150 mg extended release oral tablet (2 sources) Aminoketone take 1 tablet by mouth every twenty-four hours Wellbutrin XL 150 MG 1 tablet in the morning Orally Once a day Active cetirizine hydrochloride 10 mg oral tablet (7 sources) Histamine-1 Receptor Antagonist Start: 07-02-2025 End: 07-02-2026 take 2 tablets by mouth in the morning cetirizine (ZyrTEC) 10 MG tablet Indications: Chronic Urticaria , L50 Chronic Urticaria Take 2 tablets (20 mg) by mouth in the morning and 2 tablets (20 mg) before bedtime. 360 tablet 3 07/02/2025 07/02/2026 Active Deutetrabenazine (1 source) Start: 06-24-2025 take 1 tablet by mouth once daily Deutetrabenazine 6mg(28)-9mg(28) -12 mg (14) tablets,dose pack Active 1 TAB PO Daily June 24, 2025 12:00am Complies with drug therapy Deutetrabenazine ER (Austedo XR) 36 MG tablet sustained-release 24 hour (16 sources) Start: 05-21-2025 End: 05-21-2026 take 1 tablet by mouth once daily, then take 1 tablet by mouth every twenty-four hours Deutetrabenazine ER (Austedo XR) 36 MG tablet sustained-release 24 hour Indications: Tardive dyskinesia Take 36 mg by mouth Daily 30 tablet 11 05/21/2025 05/21/2026 Active diphenhydrAMINE 12.5 MG/5ML elixir 50 mg, aluminum-magnesium hydroxide-simethicon e 400-400-40 MG/5ML suspension 20 mL, lidocaine 2 % solution 20 mL (10 sources) Start: 09-15-2024 End: 11-17-2024 take 5 mL by mouth every six hours diphenhydrAMINE 12.5 MG/5ML elixir 50 mg, aluminum-magnesium hydroxide-simethico ne 400-400-40 MG/5ML suspension 20 mL, lidocaine 2 [...] by mouth every week Ergocalciferol 1.25 MG (15599 UT) 1 capsule Orally Q week for 90 day(s) Nov, Active ezetimibe 10 mg oral tablet (20 sources) Dietary Cholesterol Absorption Inhibitor Start: 02-25-2024 End: 06-25-2025 take 1 tablet by mouth once daily ezetimibe (Zetia) 10 MG tablet Indications: Pure hypercholesterolemia TAKE 1 TABLET BY MOUTH ONCE DAILY 90 tablet 3 12/08/2024 06/25/2025 Discontinued (Therapy completed) famotidine 20 mg oral tablet (20 sources) Histamine-2 Receptor Antagonist Start: 07-02-2025 End: 07-02-2026 take 1 tablet by mouth in the morning famotidine (Pepcid) 20 MG tablet Indications: Angioedema, initial encounter Take 1 tablet (20 mg) by mouth in the morning and 1 tablet (20 mg) before bedtime. 180 tablet 3 07/02/2025 07/02/2026 Active End: 05-01-2025 take 1 tablet by mouth once daily as needed famotidine (Pepcid) 20 MG tablet Take 20 mg by mouth 1 (one) time each day at the same time PRN 05/01/2025 Discontinued (Therapy completed) gabapentin 800 mg oral tablet (20 sources) Anti-epileptic Agent Start: 06-26-2025 gabapenti n (Neurontin) 800 MG tablet Indications: Idiopathic peripheral neuropathy TAKE 1 TABLET BY MOUTH EVERY MORNING, THEN 1 TABLET BY MOUTH IN THE AFTERNOON AND TAKE 1 TABLET BY MOUTH EVERY NIGHT AT BEDTIME 90 tablet 06/26/2025 Active Start: 05-04-2025 End: 06-26-2025 gabapentin (Neurontin) 600 M G tablet Indications: Idiopathic peripheral neuropathy TAKE 1 TABLET BY MOUTH EVERY MORNING, THEN HALF A TABLET BY MOUTH IN THE AFTERNOON AND TAKE 1.5 TABLET BY MOUTH EVERY NIGHT AT BEDTIME 90 tablet 2 05/04/2025 06/26/2025 Discontinued (Reorder) Start: 04-04-2025 gabapentin (Ne urontin) 600 MG tablet Indications: Idiopathic peripheral neuropathy Take 1 tablet po in the morning, 1/2 tablet po in the afternoon and 1 and 1/2 tablet po at bedtime. 60 tablet 04/04/2025 Active Start: 01-02-2025 End: 04-04-2025 take 4 capsules by mouth at bedtime, [...] NIGHT AT BEDTIME 120 capsule 2 01/02/2025 04/04/2025 Discontinued Start: 08-03-2019 End: 09-15-2024 take 2 capsules by mouth [...] 120 capsule 1 11/24/2024 01/02/2025 Discontinued (Reorder) hydrOXYzine pamoate 25 mg oral capsule (20 sources) Antihistamine Start: 07-02-2025 End: 07-02-2026 take 1 capsule by mouth at bedtime hydrOXYzine pamoate (Vistaril) 25 MG capsule Indications: Angioedema, initial encounter Take 1 capsule (25 mg) by mouth at bedtime 90 capsule 3 07/02/2025 07/02/2026 Active Start: 06-24-2025 take 1 tablet by sobia th three times daily as needed Start: 03-15-2024 End: 05-01-2025 take 1 tablet by mouth twice daily as needed for anxiety hydrOXYzine HCl (Atarax) 50 MG tablet Indications: Generalized anxiety disorder Take 1 tablet (50 mg) by mouth 2 (two) times a day as needed for anxiety 60 tablet 2 05/01/2025 Active Start: 01-21-2024 take 1 tablet by sobia th once daily as needed for anxiety Hydroxyzine Hcl 50 mg tablet Active 50 MG PO Daily as needed for anxiety January 21, 2024 1:00am Complies with drug therapy lidocaine hydrochloride 20 mg/ml mucous membrane topical solution (10 sources) Antiarrhythmic, Amide Local Anesthetic Start: 04-30-2024 End: 11-17-2024 lidocaine (Xylocaine) 2 % solution Take by mouth if needed for moderate pain or mild pain 04/30/2024 11/17/2024 Discontinued Start: 05-09-2022 Lidoderm 5 % 1 -2 patch remove after 12 hours Externally Once a day PRN ONLY for 10 days Apr, Active Magic Mouthwash W/Lidocaine 240 Ml Bottle [...] EVENING MEAL once daily for 30 Active montelukast 10 mg oral tablet (7 sources) Leukotriene Receptor Antagonist Start: 07-02-2025 End: 07-02-2026 take 1 tablet by mouth at bedtime montelukast (Singulair) 10 MG tablet Indications: Angioedema, initial encounter Take 1 tablet (10 mg) by mouth at bedtime 90 tablet 3 07/02/2025 07/02/2026 Active predniSONE 10 mg oral tablet (15 sources) Start: 06-24-2025 Start: 06-05-2025 End: 07-10-2025 predniSONE (Deltasone) 10 MG tablet Indications: Tongue swelling Day 1-2 take 4 tabs orally by mouth once daily. Day 3-4 take 3 tabs. Day 5-6 take 2 tabs. Day 7-8 take 1 tab. Once daily for 8 days. 20 tablet 06/05/2025 07/10/2025 Discontinued (Therapy completed) Start: 07-22-2022 take 1 tablet by sobia th every twelve hours predniSONE 20 MG 1 tablet Orally twice a day for 6 days Jun, Active Start: 05-09-2022 take 1 tablet by sobia th every eight hours predniSONE 20 MG 1 tablet Orally 3 times a day for 6 days Apr, Active rosuvastatin calcium 10 mg oral tablet (14 sources) HMG-CoA Reductase Inhibitor Start: 07-10-2025 End: 01-06-2026 take 1 tablet by mouth once daily rosuvastatin (Crestor) 10 MG tablet Indications: Pure hypercholesterolemia Take 1 tablet (10 mg) by mouth Daily 30 tablet 5 07/10/2025 01/06/2026 Active Start: 07-10-2025 End: 07-10-2025 take 1 tablet by mouth once daily rosuvastatin (Crestor) 40 MG tablet Indications: Pure hypercholesterolemia Take 1 tablet (40 mg) by mouth Daily 30 tablet 5 07/10/2025 07/10/2025 Discontinued Start: 07-10-2025 End: 07-10-2025 take 1 capsule by mouth at bedtime Rosuvastatin Calcium (Ezallor Sprinkle) 40 MG capsule sprinkle Indications: Pure hypercholesterolemia , Tardive dyskinesia Take 40 mg by mouth at bedtime 30 capsule 5 07/10/2025 07/10/2025 Discontinued (Therapy completed) take 1 tablet by sobia th every twenty-four hours Crestor 10 MG 1 tablet Orally Once a day for 30 Active take 1 tablet by sobia th once daily Crestor 10 MG 1 tablet Orally Once a day for 30 Active sertraline 100 mg oral tablet (20 sources) Serotonin Reuptake Inhibitor Start: 04-30-2024 End: 07-10-2026 take 1 tablet by mouth once daily sertraline (Zoloft) 100 MG tablet Indications: Bipolar affective disorder, currently depressed, moderate (HCC) Take 1 tablet (100 mg) by mouth Daily 07/10/2025 07/10/2026 Active Start: 04-30-2024 Sertraline Act kelly MG PO April 30, 2024 12:00am Start: 01-21-2024 End: 04-30-2024 take 1 tablet by mouth once daily Sertraline 50 mg tablet Discontinued 50 MG PO Daily January 21, 2024 1:00am April 30, 2024 12:04pm triamcinolone acetonide 1 mg/ml topical lotion (15 sources) Corticosteroid Start: 07-02-2025 triamcinolone (Kenalog) 0.1 % lotion Indications: Atopic dermatitis in adult Apply topically in the morning and before bedtime. Applied to affected areas on the scalp twice daily for 10 days followed by once daily for 10 days and then twice weekly. 60 mL 4 07/02/2025 Active Start: 08-22-2018 Kenalog -40 mg Jul, 40 mg Start: 03-03-2017 Kenalog -40 mg Feb, 40 mg valbenazine 80 mg oral capsule (13 sources) End: 06-25-2025 valbenazine tosylate (Ingrezza) 80 MG capsule Take 1 capsule by mouth at bedtime VO script given 02/1206/25/2025 Discontinued (Ineffective) Valbenazine Tosylate (Ingrezza) 60 MG capsule (3 sources) take 1 capsule by mouth at bedtime Valbenazine Tosylate (Ingrezza) 60 MG capsule Take 1 capsule by mouth at bedtime Active Valbenazine Tosylate (Ingrezza) 80 MG capsule sprinkle (2 sources) Start: 02-12-2025 End: 02-23-2025 take 1 capsule by mouth once daily Valbenazine Tosylate (Ingrezza) 80 MG capsule sprinkle Indications: Tardive dyskinesia Take 80 mg by mouth Daily 90 capsule 4 02/12/2025 02/23/2025 Discontinued (Therapy completed) vitamin b12 0.5 mg oral tablet (5 sources) Vitamin B12 Start: 07-10-2025 End: 07-10-2026 take 1 tablet by mouth once daily cyanocobalamin (Vitamin B-12) 500 MCG tablet Indications: B12 deficiency Take 1 tablet (500 mcg) by mouth Daily 07/10/2025 07/10/2026 Active Completed/Discontinued Medications Medication Drug Class(es) Dates Sig (Normalized) Sig (Original) ARIPiprazole 5 mg oral tablet (20 sources) Atypical Antipsychotic Start: 04-30-2024 End: 06-24-2025 Aripiprazole 5 mg tablet Discontinued MG PO April 30, 2024 12:00am June 24, 2025 6:10pm Start: 04-30-2024 Aripiprazole A ctive MG PO April 30, 2024 12:00am Start: 01-21-2024 End: 04-30-2024 take 1 tablet by mouth once daily Aripiprazole 10 mg tablet Discontinued 10 MG PO Daily January 21, 2024 1:00am April 30, 2024 12:03pm take 1 tablet by sobia th every twenty-four hours Abilify 5 MG 1 tablet Orally Once a day Active atorvastatin 80 mg oral tablet (20 sources) HMG-CoA Reductase Inhibitor Start: 01-22-2024 End: 07-10-2025 take 1 tablet by mouth once daily atorvastatin (Lipitor) 80 MG tablet Take 80 mg by mouth Daily 01/22/2024 07/10/2025 Discontinued (Therapy completed) Start: 03-15-2018 End: 01-22-2024 take 1 tablet by mouth once daily Atorvastatin 20 mg tablet Discontinued 20 MG PO Daily March 15, 2018 12:00am January 22, 2024 3:20pm busPIRone hydrochloride 10 mg oral tablet (18 sources) Start: 03-15-2018 End: 08-03-2019 take 1 tablet by mouth once daily Buspirone 10 mg tablet Discontinued 10 MG PO Daily March 15, 2018 12:00am August 03, 2019 2:28pm take 1 tablet by sobia th every twelve hours busPIRone HCl 5 MG 1 tablet Orally Twice a day for 30 days Active clopidogrel 75 mg oral tablet (20 sources) [id number] Platelet Inhibitor Start: 01-22-2024 End: 06-24-2025 take 1 tablet by mouth once daily Clopidogrel (Plavix) 75 mg tablet Discontinued 75 MG PO Daily January 22, 2024 1:00am June 24, 2025 6:10pm fluocinonide 0.5 mg/ml topical solution (16 sources) Corticosteroid Start: 05-25-2024 End: 01-01-2025 fluocinonide (Lidex) 0.05 % external solution Indications: Lichen planopilaris Apply to affected areas on the scalp, up to twice a day when flared, 30 day supply 60 mL 11 05/25/2024 01/01/2025 Discontinued hydroCHLOROthiazide 25 mg oral tablet (20 sources) Thiazide Diuretic Start: 06-28-2025 End: 07-10-2025 take 1 tablet by mouth once daily in the morning hydroCHLOROthiazide (HYDRODiuril) 25 MG tablet Indications: Hypertension, unspecified type TAKE 1 TABLET BY MOUTH DAILY IN THE MORNING 90 tablet 3 06/28/2025 07/10/2025 Discontinued (Therapy completed) Start: 08-03-2019 End: 06-24-2025 take 1 tablet by mouth once daily in the morning hydroCHLOROthiazide (HYDRODiuril) 25 MG tablet Indications: Hypertension, unspecified type TAKE 1 TABLET BY MOUTH DAILY IN THE MORNING 30 tablet 10 07/05/2024 Active ibuprofen 600 mg oral tablet (20 sources) Nonsteroidal Anti-inflammatory Drug End: 07-10-2025 ibuprofen 600 MG tablet Take by mouth every 8 (eight) hours if needed 07/10/2025 Discontinued (Therapy completed) lisinopril 10 mg oral tablet (15 sources) Angiotensin Converting Enzyme Inhibitor Start: 03-15-2018 End: 03-16-2018 take 1 tablet by mouth once daily Lisinopril 10 mg tablet Discontinued 10 MG PO Daily March 15, 2018 12:00am March 16, 2018 11:27am losartan potassium 25 mg oral tablet (20 sources) Angiotensin 2 Receptor Pati Start: 06-28-2025 End: 07-10-2025 take 1 tablet by mouth once daily losartan (Cozaar) 25 MG tablet Indications: Hypertension, unspecified type TAKE 1 TABLET BY MOUTH ONCE DAILY 90 tablet 3 06/28/2025 07/10/2025 Discontinued (Therapy completed) Start: 08-03-2019 End: 06-24-2025 take 1 tablet by mouth once daily Losartan 25 mg tablet Discontinued 25 MG PO Daily August 03, 2019 12:00am June 24, 2025 6:11pm Magic Mouthwash W/Lidocaine 240 Ml Bottle 240 mL bottle (3 sources) Start: 04-30-2024 End: 06-24-2025 take 1 [tsp_us] by mouth every four to six hours as needed for pain Magic Mouthwash W/Lidocaine 240 Ml Bottle 240 mL bottle Discontinued 5 ML PO .every 4-6 hours as needed for tongue pain 120 April 30, 2024 12:00am June 24, 2025 6:11pm Swish and spit 1 tsp every 4-6 hours as needed Start: 04-30-2024 take 1 [tsp_us] by m outh every four to six hours as needed for pain Magic Mouthwash W/Lidocaine 240 Ml Bottle 240 mL bottle Active 5 ML PO .every 4-6 hours as needed for tongue pain 120 April 29, 2024 11:00pm Swish and spit 1 tsp every 4-6 hours as needed nystatin [id number] unt/ml / triamcinolone acetonide 1 mg/ml topical cream (16 sources) Polyene Antifungal, Corticosteroid Start: 05-19-2024 End: 01-01-2025 nystatin-triamcinolone (Mycolog II) cream Indications: Skin rash in [...] Discontinued pravastatin sodium 40 mg oral tablet (10 sources) HMG-CoA Reductase Inhibitor Start: 01-21-2024 End: 01-22-2024 take 1 tablet by mouth once daily Pravastatin 40 mg tablet Discontinued 40 MG PO Daily January 21, 2024 1:00am January 22, 2024 3:20pm terbinafine hydrochloride 10 mg/ml topical cream (16 sources) Allylamine Antifungal Start: 05-25-2024 End: 01-01-2025 terbinafine (LamISIL AT ATHLETES FOOT) 1 % cream Indications: Tinea corporis Apply to groin topically once a day/30 days 42 g 3 05/25/2024 01/01/2025 Discontinued 24 hr venlafaxine 150 mg extended release [...] [Diaphragmatic hernia without obstruction or gangrene] Episodic Allergic reactions (4 sources) Flexural atopic dermatitis; Translations: [Other atopic dermatitis] 07-02-2025 Chronic Allergic reactions (1 source) Allergic reaction; Translations: [Allergy, unspecified, initial encounter] 07-27-2025 Episodic Anal and rectal conditions (5 sources) [...] (primary) hypertension] Onset: 12-11-2021 Resolved: 08-11-2023 Chronic Fluid and electrolyte disorders (3 sources) Hypokalemia; Translations: [Idiopathic angioedema] Onset: 06-25-2022 Resolved: 06-25-2022 Episodic Headache; including migraine (2 sources) Migraine without aura, not refractory ; Translations: [Migraine without aura, not intractable, without status migrainosus] 07-16-2025 Chronic Hemorrhoids (5 sources) Hemorrhoids; Translations: [Unspecified hemorrhoids] Episodic Miscellaneous mental health disorders (20 sources) Functional visual loss; Translations: [Other somatoform [...] [Personal history of colonic polyps] Episodic Other circulatory disease (5 sources) History of transient ischemic attack; Translations: [Personal history of transient ischemic attack (TIA), and cerebral infarction without residual deficits] Onset: 07-12-2025 07-12-2025 Episodic Other congenital anomalies (20 sources) Porokeratosis; Translations: [Other specified congenital malformations [...] and degenerative nervous system conditions (20 sources) Tardive dyskinesia; Translations: [Drug induced subacute dyskinesia] Onset: 01-18-2025 01-18-2025 Episodic Other injuries and conditions due to external causes (2 sources) Idiopathic angioedema; Translations: [Angioneurotic edema, initial encounter] 06-26-2025 Episodic Other injuries and conditions due to external causes (2 sources) Angioedema; Translations: [Angioneurotic edema, initial encounter] 07-02-2025 Episodic Other liver diseases (20 sources) Steatosis of liver; Translations: [Fatty (change of) liver, not elsewhere classified] Onset: 05-07-2023 05-07-2023 Chronic Other liver diseases (7 sources) Fatty (change of) liver, not elsewhere classified; Translations: [Other chronic nonalcoholic liver disease] Onset: 05-07-2023 07-09-2025 Chronic Other nervous system disorders (4 sources) Piriformis syndrome; Translations: [Lesion of sciatic nerve, left lower limb] Chronic Other nervous system disorders (1 source) Lesion of sciatic nerve, left lower limb Onset: 05-09-2022 Resolved: 05-09-2022 Chronic Other nervous system disorders (20 sources) Peripheral nerve disease ; Translations: [Polyneuropathy, unspecified] Onset: 05-07-2023 05-07-2023 Chronic Other nervous system disorders (9 sources) Idiopathic peripheral neuropathy; Translations: [Hereditary and idiopathic neuropathy, unspecified] 09-15-2024 Chronic Other nutritional; endocrine; and metabolic [...] for malignant neoplasm of breast] 01-02-2025 Episodic Other skin disorders (6 sources) Tongue swelling; Translations: [Localized swelling, mass and lump, head] 06-05-2025 Episodic Other upper respiratory disease (2 sources) Chronic rhinitis; Translations: [Chronic rhinitis] 07-02-2025 Chronic Residual codes; unclassified (20 sources) Obstructive [...] falling object, initial encounter] Onset: 3 Episodic Mood disorders (20 sources) Mood disorders Onset: 3 Resolved: 5 05-10-2023 Nonspecific chest pain (20 sources) Chest pain, unspecified; Translations: [Chest pain] Onset: 8 Resolved: 3 03-15-2018 Episodic Nutritional deficiencies (20 sources) Iron deficiency; Translations: [Iron deficiency] Onset: 3 05-07-2023 Episodic Open wounds of extremities (4 sources) Laceration without foreign body, left ankle, initial encounter; Translations: [Laceration of left Achilles tendon, initial encounter] Onset: 3 Episodic Other aftercare (1 source) 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; 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] Onset: 2 Episodic Other aftercare (1 source) 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 terminal 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; Translations: [OTH CORRECTION CURRENT DRUG THERAPY] Onset: 2 Episodic Other circulatory disease (20 sources) History of cerebrovascular accident; Translations: [Personal history of transient ischemic attack (TIA), and cerebral infarction without residual deficits] Onset: 4 11-29-2023 Episodic Other connective tissue disease (20 sources) Tear of left rotator cuff; Translations: [Unspecified rotator cuff tear or rupture of left shoulder, not specified as traumatic] Onset: 3 10-04-2023 Episodic Other gastrointestinal disorders (20 sources) Dysphagia; Translations: [Dysphagia, pharyngoesophageal phase] Onset: 3 10-04-2023 Episodic Other injuries and conditions due to external causes (1 source) Unspecified injury of right lower leg, initial encounter Onset: 2 Resolved: 2 Episodic Other nervous system disorders (20 sources) Impaired cognition; Translations: [Other symptoms and signs involving cognitive functions and awareness] Onset: 3 05-07-2023 Episodic Other nervous system disorders (20 sources) H/O: migraine; Translations: [Personal history of other diseases of the nervous system and sense organs] Onset: 4 11-29-2023 Episodic Other non-traumatic joint disorders (4 sources) Pain in right knee; Translations: [Pain in joint, lower leg] Onset: 2 Resolved: 2 Episodic Other non-traumatic joint disorders (1 source) Pain in left knee; Translations: [Pain in left knee] Onset: 5 Episodic Residual codes; unclassified (20 sources) H/O: high risk medication; Translations: [Personal history of other drug therapy] Onset: 5 12-21-2024 Episodic Sprains and strains (6 sources) Strain of left Achilles tendon, initial encounter; Translations: [Strain of left Achilles tendon, subsequent encounter] Onset: 3 Episodic Unclassified (1 source) LOW BACK PAIN, UNSPECIFIED; Translations: [LOW BACK PAIN, UNSPECIFIED] Onset: 2 Results Test Name Value Interpretation Reference Range Facility Employee Health Noteon 07-12 Employee Health Note [id number]#1.00OTGTI [facility] Employee Health Noteon 07-03 Employee Health Note IW notified of C9 d enial of podiatry and pain management consult pending schedule of QUANG- pt has not yet been notified re QUANG and will contact office when she is [Electronically Signed on: 07/06/2025 12:39 EDT] Annie Townsend RN [Verified on: 07/06/2025 12:39 EDT] Annie Townsend RN [facility] Employee Health Note [id number]#1.00OTG TIFF [facility] Employee Health Note [id number]#1.00OTG TIFF [facility] Coding Summaryon 07-02-2025 Coding Summary HTMLBase 64 DfhegpokEGb0iUy+PGhlYWQ+P K7STGSuM73ufDXnyV4cM7PFVB lOSywgQVBQTElOSyIgbmFtZT1 kaXNjZXJu IC8+DY5sMXNhNttkpQAzq1M9f ZE9R35xjc9jDDwmkEZ3CXQlNc Tqmnsed8dvsMe6FLnbWrttShZ t XKWlyH30WVY9aY09Ph85gMTjb MNki6ectTg5BiUsWBNlDMK0nX heDUzty4QaQKNsU44rrNWlj7U 6 WGEpfCnzhVWoPfTrzHH2lA0kG Yoauzunc4xknbldGwg8xy74zA Jdn2R0iQQ9D1NwhuX5JSOwdDN g EbxxlOWFcT7zokpme3ggyeqtL nOxGRKnUYu9GCi1QKWxkSkcEt RnZX48FIG8BUGtaxWvN3SuYCT s rXifUkM1d6D4Df7LI4EQOldhB 1VNTUFSWTwvdGQ+XK57ea77A1 IvXgjmXsn1YNWzQAG9oRC3gZ8 n XHIcJQdjv6C0wIH5M1CeffOnl v7fg9bbGEPiDSafR21ogPEks2 K6IKRtaTK7IXLujVmvJySakW4 3 Oyc+BFPulCdvm7YqAzplc1knj 0mgfNt2YylrGZNbjiCakDsdPR G2v6RdGj0oLQDvoKC5aKP7vS7 i QtMsCfA1LPogS074HnMmpINjX alpY96bM5HxuDJ+ATDpHir3QT OjrVugDD2dT5LzQUOrchayzDO m vEmuAA1dWHEttcxtEMUhyE8tS QWlS0o1LtTgLiT9BIxeR4MtTA FpfanvHf16nU6dVyHxXjQ4QQz u B3ReswG9ZZYfqNFdBEaxBDI7J 98cp7T7MGUwUVYfOZS9nHX6aP 1hbGlnbjogbGVmdDsgdmVydGl j DKovLYqhE520HPZvvMbwGbKvG GluZyBEYXRlOiAgMDgvMDQvMj AyNTwvdGQ+PGCeCNA8uKiaDQZ n rXJoFIrsFm5miLobnYzeNY1gW BAxadscZOXzhK8fZSMtwRHrxW wkOE2iELFicxyeb732TkSgCOC 0 LOWmjCIcE9ZqyZ2kHfObDRBoN MKiC8EgoWZhZDkfM751TZftOc R5XRKbuvNnW7KmRYAxkGqjDvN 0 r2V7Hy4Qu0GgniedG3HbjCGjX uXtXudlIIw7G2LcIdjxkEI+PC 44GURlDK22VIf9RDO0bWtpBLu i HHGeX7TjlU1xIjRfTSEvVYYfU yc+PHRhYmxlIHdpZHRoPScxMD IkBjAelBqwMU3hMe8sLSWvOUZ v zXraxLPcCyUbo6qcJRVzWVbhS G3yrUepG8KkuVW0SJScf6o5Os 25Z33nI9JnwVP+MADzzLT6wKP 0 oR2eGiTsAkA7YSdcZ066RkSgi NJrTcpny0jfb4mydRd2MmO9TK PwfbTelTbdTVV2n0TlSn77N04 s IHdpZHRoPSIxNSUiIHZhbGlnb w3agJ9uQi2+CGYkvCV1xIU9bQ 2hPoVsXgN8FQzpL077DvJtlTL v Xbhoy3ljt1kovYj5UsUgAIJru bAbaCsjCHE6c8ByZa73Q3TmcO dmw6JlGhf6qy06mDZdf4J5eLD 9 F4BlMOSnvlllcITcrErdEB4wS WVvjpmuYOTwrG6yJOBzQ6a5My HkDiX4PVtsD1FmusG6JHGdoKS g HOFnlNMSmJ0wnkhul3ztktpzZ fKlWGFaOVo1ITj1LZVqqLwzHg HnKFL7ClJ8OAG9cBPrfH3swTw n nxdjjK9xUib+PXB9wCFfgLIAE H7kEfhctMK+IXTnTQS1zZytYL zcHHMvaY5uPDQcW4b8LnRcLxW 1 ATywL6FcpaT7QVXgoNZrALVoh HKHdT9glkxgb3pinjdjJvFbGB QmDTv9VTq3JSMvlUpcFlXuZIT 0 HmD7NPD1pCZtpQ5nsJrfywvhj G9wOyc+CoafxYgtWCZ8SPn9O6 MuMeh0XZRjoAqjNJ1uqPVnPTo u Gt8vcCswqIbcNZ4tNSIejrnwf 344PxHfm1fwTOCfnIIgWOdbXY B8I69mh2D3BOEhADHuARY5mHI 4 nG4nxUctohaufDTniLcxvyQdj YaxRTxwQGznX288THPknJtsIh NpERa5C1VoPft1OHOrzIftCP7 n kEZmMBlbOm8aaUetoYazHA1bM QHbmylfs874ImMwf3rzEWZhzV VmEAleXDH4K77au7C3OXRmVOR w OGM8zJL6vV1jqXxxxxxgpKDqv FigeyBopZytOCfxUHvtU084WP HpsNnbUfQlcGm3B8NqCqy7CNN z oYxrXQ7hjCTpZCxrCs8kpZhyh BxoRD8hWGEhzgnui991PlWws0 yzTJHjoOMhMWysLSN5T63kw7W 6 XCApXEEwGEP5sYG3sC3opInjc jogbGVmdDsgdmVydGljYWwtYW ewX830XZGpfIvyLwXcuDrxptI g XAlqZEx0Z2WqDqrfgCF+PC90Y XNqOB50zXZwhROej3btpLp8Dp XxBWOxVLI6iVxdBNxjs8YzXXO t T85kfZJll0L9IOLqxNcowYKkL uUdzXP2dG8yFLjgxhdmv1amrl raGstvj4vrcx56qM54Y99hPHj p DVLhOBNwYDUsHTTumXxgfw8do G9wIi8+PZAduSQ0eNG4iG8hZG EtAjK3GPanX050SrYzoTFsSue j h7ykl4ikfPb3NkM4RIHyuwHdb KetSBN3j9FhEe76S68lMZtiLY ClNVRfRESvDZLtcJnecc6npL1 w Ii8+EBMrbSM3lNS9oO0sXnWnX dO1SVomS281LiIbuUFlAiybN6 3sD0MluCY+TTReMdn1BBXazSi s HL9ccKPcMAhdWg0fJXQ7RnDxV iAgHIkmM0DsIQWsngdiklzyaB L8ZGEgXYZqpN66Xx9nbKhhQEE w bKGQgN0ogrrwo7nauqybOrWuN GLlVVe3DCm9ZVFrcNnaAbRuYY B4IfI1QPA2kLLnmC0xhKpeksn g wF6kA2FvFDVpzvghVb65sO4tB pLhOiG3VHovYem+Js8CFRMBW7 2pWTwFKsJLDND0I6KkKpg2DLH z fCciGH9bwXGyOJhiCe8iqGbex DkiGR4fIOIdarmoGELurE0gUH OvpEUbzHioTT3iUEGbtcqsp61 0 TuKcLYL8JUYzyTZxY9KmtJ3iI xMjZIJmGVUeE7NrpSWtZPmeJ3 95RXxpMtQ4PTGlfdDvI2WuJHX s oHolHdW7o1T6Vt2oAu5yRF3gL WZ1KK38EA17jNMby7E4gTQ6O3 DfNTLoijwkyknqzTE2CWLpVMJ w iQ25qTJwIBflYu4jc9G5g471C DKzFFYxxT18Pb9meIucQJRxqD JDoS8pdkynm8kysmdnUxIxOZH w CRz0FNh7TGVreEdgHwEsTTU9Q kM8LWE7eAGwzH9soUhioiquzM 9wOyc+YRytQBOtsyY6X5AkRvs 0 KZEzaXpcOZ9ilOVqMCtsFm7mu HaqeHanLU1nZHHauymtCHQkiE 9wHOPbeMLmgXuqNC9eBYLwbcp m e602DuWcADR8HHNeyTJeS4Wuc C4bWbHzWUJuBNPuS2IwdDPaRD apD700VUuuKkG2PHCmbpWaD3J s YBImyBylGzU0i9L3Np9KVK2NS FP0L9BfMlv2IXZujGhaZI0ifT OhNYcqGq5qpPjczQxsVC7jLLG p lqgbLLMzvQ3nIFOasUAaoNudV E8kRQWewtmln888IpCkDCK8DA FijRBoT9AkoM8jElBrDCRlQQZ w M2YvjPLxQRucT236DWyvDoY8V GWsvfRzD8ToCVHndLzmLrO1a9 B1Iu8XVPkvnQY+GX10iz09K4O h EvjiIly4JQBvANT7lXZ3tM0lE SSzPIaeb8I2sRO9Y6HcfaAdtx 2vw2ohIVVpEUjoA89qqLYur8R 7 URRlaLM6ZDFxlAcpAyExtX71P yc+DCGafWdhk0VoGenba1yjk6 fpqYa4PzQfYJHhxuHptOpfBWN 0 o0HcIx92L07oKNfwUUDxSYAiW FZbKDAjkHnsnl0gpT8fKy3+PG PezDE8jRO4yQ2lBxJrYfO2CHa p Y078HrCvaLBuQgqtz6rpq4tcq Lv6LfVlXVLtwiAbqJyrDLP8i2 XeIp96Z1AtwUcph6ZcDem9gg4 8 vQBux4Z1qAG5S9EyEIUzgyfwl YWxaTabII2nVZVqhugoHZZglK 7yNCRiQ4t3XxDsFpT7KCgdS3R v dcH0WJIviKTnTLEzjPIOaJ0nh ezcb8eknbpjHdCoFTDpFSs6RZ c0AGNfjTlqAyJkGKA4NdT4IFU 0 bLRqrU6lfPsolovifD6oYna+U Gk8a1uypZQgIS6hgKF9RJ65SQ 83dOSlp6G3dJO9L2DoBWQljrq t woowbNM8GRUgPDTvoQ02Ri8qg ZfzFi3hVISwHNP5NQSnzMXqC0 RtkR5yIdNdWKCcADIpS9AanGJ t GJgpS266VBrwLmN1DDTtpnWiC 1McZDSgjJiuZsB2u8N4Ln7SEG 32UJ16NE42gKQhe6J6wKL3U8X h SORtkilhckuucTG8DZFqBXQeq B22Ix7ycKybYi4wUPKzXGX4KQ OhhQLaL9SdlL0fApNuCJQjRUB w F8PxcIKeXLghS423OYvlRkL8D QUpjcOaV2XfPFXauFmtCvA9c5 A0Nu7BEs03XW10TB70nXGfq8H 5 aUV7B8OgYHRoyjvupzlzaUD3Q MQvUXBnfV83Lt1wzPodFr9uWJ ZrMTF2GLEeoIYxQ5KitL4rEgC j DHIpTUXsH3BksAEfVBnvJ105P TavBjN2XXDuwuOqG6RjAODmvP jxIeH7n8K0Dc9IVPurqkl3M5S k PjwvdHI+KQ43CJAiCJ29kVYzr XAod4lpnFr9FxDvTGJfMCF3bU dxWFruf9RqIXEeR35lkGCyc8R 6 IGN (more content not included)... [facility] Employee Health Noteon 06-28 Employee Health Note [id number]#1.00OTG TIFF [facility] Employee Health Note [id number]#1.00OTG TIFF [facility] Employee Health Noteon 06-25 Employee Health Note [id number]#1.00OTGTI [facility] Employee Health Note [id number]#1.00OTGTI FF [facility] Employee Health Note [id number]#1.00OTGTI FF [facility] Employee Health Note [id number]#1.00OTGTI [facility] ECG 12 lead ECGon 06-24-2025 ECG 12 lead ECG [facility] [address] Electrocardiograph Report Signed Patient: Yarelis Swenson MR#: [id number] : 1970 Acct:[id number] Age/Sex: 55 / F ADM Date: 06/24/25 Loc: ER Room: Type: [facility] ER Attending Dr: Ordering Provider: Ana Chamberlain MD Date of Service: 06/24/25 ECG/ECG 12 lead ECG: Shortness of Breath/Dyspnea Copies to: Test Reason : Blood Pressure : 177/99 mmHG Vent. Rate : 88 BPM Atrial Rate : 88 BPM P-R Int : 198 ms QRS Dur : 82 ms QT Int : 362 ms P-R-T Axes : 57 -21 85 degrees QTcB Int : 438 ms Normal sinus rhythm Cannot rule out Anterior infarct , age undetermined Abnormal ECG When compared with ECG of 21-Jan-2024 11:30, Nonspecific T wave abnormality now evident in Lateral leads Confirmed by ANA CHAMBERLAIN MD ([id number]) on 06/25/2025 1:24:17 AM Referred By: Electronically Signed By: ANA CHAMBERLAIN MD Transcribed By: MUS Signed By Ana Chamberlain MD 06/25/25 0124 Normal [facility] Physician [facility] BI MAMMOGRAM SCREENING TOMOS YNTHESIS BILATERALon 03-05-2025 BI MAMMOGRAM SCREENING TOMOSYNTHESIS BILATERAL This is a summary report. The complete report is available in the patient's medical record. If you cannot access the medical record, please contact the sending organization for a detailed fax or copy. Examination: BI MAMMOGRAM SCREENING TOMOSYNTHESIS BILATERAL Clinical [...] Mammogram ELECTRONICALLY SIGNED BY: Lenard Chaparro M.D. Normal Not Available XR FOOT LT MIN 3Von 01-31-[address] [place] [address] XRay Report Signed Patient: YARELIS SWENSON MR#: [id number] : 1970 Acct:[id number] Age/Sex: 55 / F ADM Date: 01/30/25 Loc: RAD Attending Dr: Дмитрий Ríos D.P.M. Ordering Physician: Дмитрий Ríos D.P.M. Date of Service: 01/30/25 Procedure(s): XR foot LT min 3V Accession Number(s): [id number] cc: JULIO C JARRETT ; Дмитрий Ríos D.P.M. [facility] [place] [id number] Patient Name: YARELIS SWENSON MRN: [facility]:[id number] date: 1970 Sex: F Assigned Patient Location: [facility] Current Patient Location: [facility] Accession/Order Number: [id number] Exam Date: 01/30/2025 15:44 Report Date: 01/30/2025 15:46 At the request of: ДМИТРИЙ RÍOS DPJake Procedure: XR foot LT min 3V LEFT FOOT - 3 views CLINICAL DATA: Foot pain, greater laterally. Previous Achilles surgery. No recent injury. COMPARISON: 06/14/2024 Weightbearing AP, lateral and oblique views were obtained. There is osteopenia. There is no acute fracture or dislocation. Mild degenerative changes are present at the first metatarsal phalangeal joint and dorsum of the tarsometatarsal joints. There are posterior and plantar calcaneal spurs. There are no significant soft tissue abnormalities. XR/XR foot LT min 3V IMPRESSION: OSTEOPENIA AND MILD DEGENERATIVE CHANGES. NO ACUTE BONY FINDINGS. Impression dictated by: Yarelis Cabrera M.D.01/30/2025 3:46 PM Dictation Location: [place] [address] Electronically authenticated by: [id number] Y Date: 01/30/2025 15:46 Dictated By: Yarelis Cabrera M.D. Signed By: 01/30/25 1548 DD/ 1546 TD/TT: Distribution Agent: [facility] Radiology, Radiologi MD abbie - 01/30/2025 [place] [address] XRay Report Signed Patient: YARELIS SWENSON MR#: [id number] : 1970 Acct:[id number] Age/Sex: 55 / F ADM Date: 01/30/25 Loc: [facility] Attending Dr: Дмитрий Ríos D.P.M. Ordering Physician: Дмитрий Ríos D.P.M. Date of Service: 01/30/25 Procedure(s): XR foot LT min 3V Accession Number(s): [id number] cc: JULIO C JARRETT ; Дмитрий Ríos D.P.M. [facility] [place] [address] Patient Name: YARELIS SWENSON MRN: [facility]:[id number] date: 1970 Sex: F Assigned Patient Location: [facility] Current Patient Location: [facility] Accession/Order Number: [id number] Exam Date: 01/30/2025 15:44 Report Date: 01/30/2025 15:46 At the request of: ДМИТРИЙ RÍOS DPM Procedure: XR foot LT min 3V LEFT FOOT - 3 views CLINICAL DATA: Foot pain, greater laterally. Previous Achilles surgery. No recent injury. COMPARISON: 06/14/2024 Weightbearing AP, lateral and oblique views were obtained. There is osteopenia. There is no acute fracture or dislocation. Mild degenerative changes are present at the first metatarsal phalangeal joint and dorsum of the tarsometatarsal joints. There are posterior and plantar calcaneal spurs. There are no significant soft tissue abnormalities. XR/XR foot LT min 3V IMPRESSION: OSTEOPENIA AND MILD DEGENERATIVE CHANGES. NO ACUTE BONY FINDINGS. Impression dictated by: Yarelis Cabrera M.D.01/30/2025 3:46 PM Dictation Location: [place] [address] Electronically authenticated by: [id number] Y Date: 01/30/2025 15:46 Dictated By: Yarelis Cabrera M.D. Signed By: 01/30/25 1548 DD/ 1546 TD/TT: Distribution Agent: [facility] Healthcare Radiology Study observation (narrative) [facility] Healthcare XR FOOT LT MIN 3VOrdered By: Radiologist Radiology on 01-30-2025 [facility] Healthcare Work Phone: X-ray reportOrdered By: Johnnie Carlos on 12-06-2024 Study report [facility] [address] [place] [address] XRay Report Signed Patient: Yarelis Swenson MR#: [id number] : 1970 Acct:[id number] Age/Sex: 54 / F ADM Date: 5 Loc: SOXD Room: Type: REG CLI Attending Dr: Maik Mcmillan DO Copies [...] Carlos Jr., D.O.12/06/2024 6:51 PM Dictation Location: [facility] Transcribed By: [facility] 12/06/241850 Dictated By: Kd Carlos Jr, DO 12/06/241850 Signed By: 12/06/241850 [facility] XR knee BI 3V - NOT FOR ER U [place] 12-06-2024 XR knee BI 3V - NOT FOR ER USE [facility] [address] [place] [address] XRay Report Signed Patient: Yarelis Swenson MR#: [id number] : 1970 Acct:[id number] Age/Sex: 54 / F ADM Date: 12/06/24 Loc: [facility] Room: Type: REG CLI Attending Dr: Maik Mcmillan DO Copies [...] SPACES. Impression dictated by: Kd Carlos Jr., Chasity.David12/06/2024 6:51 PM Dictation Location: [place] [address] Transcribed By: [facility] 12/06/241850 Dictated By: Kd Carlos Jr, DO 12/06/241850 Signed By: 12/06/241850 Normal [facility] Activated partial thrombopla stin time (aPTT) in platelet poor plasma by coagulation aOrdered By: Pop Marie on 01-21-2024 aPTT Coag (PPP) [Time] 28.8 s 25.1-36.5 [facility] Comment on above: A hematocrit value g reater than 55% may lead to inaccurate results in coagulation testing. Patients having hematocrit values >55% require a special collection tube for coagulation studies. Please contact the laboratory at [phone] for redraw instructions. Alanine aminotransferase [En zymatic activity/volume] in Serum or PlasmaOrdered By: Pop Marie on 01-21-2024 ALT [Catalytic activity/Vol] 15 U/L 7-52 [facility] Albumin [Mass/volume] in Ser um or Plasma by Bromocresol green (BCG) dye binding methoOrdered By: Pop Marie on 01-21-2024 Albumin BCG dye [Mass/Vol] 4.4 g/dL 3.5-5.7 [facility] Alkaline phosphatase [Enzyma tic activity/volume] in Serum or PlasmaOrdered By: Ppo Marie on 01-21-2024 ALP [Catalytic activity/Vol] 61 U/L 34-104 [facility] Aspartate aminotransferase [ Enzymatic activity/volume] in Serum or PlasmaOrdered By: Pop Marie 01-21-2024 AST [Catalytic activity/Vol] 16 U/L 13-39 [facility] Automated erythrocytes count in urine sediment (number/area)Ordered By: Pop Marie on 01-21-2024 RBC Auto (Urine sed) [#/Area] 3-4 [HPF] 0-4 [facility] Automated leukocytes count i n urine sediment (number/area)Ordered By: Pop Marie on 01-21-2024 WBC Auto (Urine sed) [#/Area] 10-19 [HPF] 0-4 [facility] Automated urine hyaline cast s count (number/volume)Ordered By: Pop Marie on 01-21-2024 Hyaline casts Auto (U) [#/Vol] None seen [LPF] 0-1 [facility] Bacterial blood cultureOrder ed By: Michael Wells on 01-21-2024 Bacteria identified Cx Nom (Bld) NO GROWTH 5 DAYS [facility] Basophils Auto (Bld) [#/Vol] Ordered By: Pop Marie on 01-21-2024 Basophils (Bld) [#/Vol] 0.0 10*3/uL 0.0-0.2 [facility] Basophils/100 WBC Auto (Bld) Ordered By: Pop Marie on 01-21-2024 Basophils/100 WBC (Bld) 0.6 % . [facility] Bilirubin Test strip Ql (U)O rdered By: Pop Marie on 01-21-2024 Bilirubin Ql (U) Negative Negative [facility] Bilirubin.direct [Mass/volum e] in Serum or PlasmaOrdered By: Pop Marie on 01-21-2024 Bilirubin.direct [Mass/Vol] 0.10 mg/dL 0.03-0.18 [facility] Bilirubin.total [Mass/volume ] in Serum or PlasmaOrdered By: Pop Marie on 01-21-2024 Bilirubin [Mass/Vol] 0.6 mg/dL 0.3-1.0 [facility] C reactive protein [Mass/vol ume] in Serum or PlasmaOrdered By: Michael Wells on 01-21-2024 CRP [Mass/Vol] < 0.5 mg/dL 0.0-0.5 [facility] C reactive protein [Mass/vol ume] in Serum or Plasma by High sensitivity methodOrdered By: Michael Wells on 01-21-2024 CRP High sensitivity method [Mass/Vol] 1.0 mg/L 0.0-0.9 [facility] Comment on above: Cardiovascular Risk Classification [...] this marker for estimation of CVD risk. Calcium [Mass/volume] in Ser um or PlasmaOrdered By: Pop Marie on 01-21-2024 Calcium [Mass/Vol] 9.5 mg/dL 8.6-10.3 [facility] Carbon dioxide, total [Moles /volume] in Serum or PlasmaOrdered By: Pop Marie on 01-21-2024 CO2 [Moles/Vol] 27.3 mmol/L 21.0-31.0 [facility] Casts typing in urine sedime nt by light microscopyOrdered By: Pop Marie on 01-21-2024 Casts LM Nom (Urine sed) None seen [LPF] None Seen [facility] Chloride [Moles/volume] in S anthony or PlasmaOrdered By: Pop Marie on 01-21-2024 Chloride [Moles/Vol] 105 mmol/L 98-107 [facility] Cholesterol [Mass/volume] in Serum or PlasmaOrdered By: Michael Wells on 01-21-2024 Cholesterol [Mass/Vol] 184 mg/dL 140-200 [facility] Comment on above: Chol less than 200 m g/dl low riskChol 201-239 mg/dl borderline riskChol 240 mg/dl and greater high risk Cholesterol in LDL Calc [Mas s/Vol]Ordered By: Michael Wells on 01-21-2024 Cholesterol in LDL [Mass/Vol] 95 mg/dL 0-100 [facility] Comment on above: LDL ATP III CLASSIFI CATIONLDL less than 100 mg/dL OptimalLDL 100-129 mg/dL Near or above optimalLDL 130-159 mg/dL Borderline highLDL 160-189 mg/dL HighLDL greater than 189 mg/dL Very high Cholesterol in VLDL Calc [Ma ss/Vol]Ordered By: Michael Wells on 01-21-2024 Cholesterol in VLDL [Mass/Vol] 33 mg/dL [facility] Color Auto (U)Ordered By: Junior Marie on 01-21-2024 Color (U) Yellow Yellow [facility] Creatine kinase [Enzymatic a ctivity/volume] in Serum or PlasmaOrdered By: Pop Marie on 01-21-2024 CK [Catalytic activity/Vol] 60 U/L 30-223 [facility] Creatinine (Bld) [Mass/Vol]O rdered By: Pop Marie on 01-21-2024 Creatinine [Mass/Vol] 0.9 mg/dL 0.6-1.3 [facility] Comment on above: ER/ESD physician is notified/shown all ISTAT results.Critical values may be confirmed by laboratory testing ifdeemed necessary by ER attending doctor. Creatinine [Mass/volume] in Serum or PlasmaOrdered By: Pop Marie on 01-21-2024 Creatinine [Mass/Vol] 0.83 mg/dL 0.60-1.20 [facility] Eosinophils Auto (Bld) [#/Vo l]Ordered By: Pop Marie on 01-21-2024 Eosinophils (Bld) [#/Vol] 0.1 10*3/uL 0.0-0.45 [facility] Eosinophils/100 WBC Auto (Bl d)Ordered By: Pop Marie on 01-21-2024 Eosinophils/100 WBC (Bld) 1.4 % . [facility] Erythrocyte distribution wid th Auto (RBC) [Ratio]Ordered By: Pop Marie on 01-21-2024 Erythrocyte distribution width (RBC) [Ratio] 13.9 % 11.9-15.3 [facility] Erythrocyte sedimentation ra te by Photometric methodOrdered By: Michael Wells on 01-21-2024 ESR Photometric method (Bld) [Velocity] 13 mm/hr 0-29 [facility] Ethanol [Mass/volume] in Ser um or PlasmaOrdered By: Pop Marie on 01-21-2024 Ethanol [Mass/Vol] mg/dL [facility] Ethanol [Mass/Vol] TNP [facility] Comment on above: Test not performed Globulin Calc (S) [Mass/Vol] Ordered By: Pop Marie on 01-21-2024 Globulin (S) [Mass/Vol] 2.9 g/dL [facility] Glucose Glucometer (BldC) [M ass/Vol]Ordered By: ORION BOYER on 01-21-2024 Glucose [Mass/Vol] 103 mg/dL [facility] Comment on above: Random Glucose Refer ence Range is dependent on time and content of last meal. Glucose of more than 200 mg/dL in a nonstressed, ambulatory subject supports the diagnosis of Diabetes Mellitus. Glucose [Mass/volume] in Ser um or PlasmaOrdered By: Pop Marie on 01-21-2024 Glucose [Mass/Vol] 89 mg/dL 70-100 [facility] Comment on above: ADA recommended refe [...] from glycated hemoglobin (Bld) [Mass/Vol] 114 mg/dL [facility] Hematocrit Auto (Bld) [Volum e fraction]Ordered By: Pop Marie on 01-21-2024 Hematocrit (Bld) [Volume fraction] 39.3 % 34.0-46.4 [facility] Hemoglobin A1c percentageOrd ered By: Michael Wells on 01-21-2024 HbA1c (Bld) [Mass fraction] 5.6 % 4.3-5.6 [facility] Comment on above: Increased risk for d iabetes: 5.7 - 6.4diabetes: >6.4glycemic control for adults with diabetes: <7.0 Hemoglobin [Mass/volume] in BloodOrdered By: Pop Marie on 01-21-2024 Hemoglobin (Bld) [Mass/Vol] 13.4 g/dL 11.8-15.4 [facility] INR in Platelet poor plasma by Coagulation assayOrdered By: Pop Marie on 01-21-2024 INR Coag (PPP) [Relative time] 1.0 {INR} [facility] Comment on above: INR Therapeutic Rang [...] with mechanical heart valves: 3 - 4.5 Ketones Auto test strip (U) [Mass/Vol]Ordered By: Pop Marie on 01-21-2024 Ketones (U) [Mass/Vol] Negative Negative Fi [facility] Leukocytes [#/volume] correc ekaterina for nucleated erythrocytes in Blood by Automated counOrdered By: Pop Marie on 01-21-2024 WBC corrected for nucl RBC Auto (Bld) [#/Vol] 7.8 10*3/uL 3.8-11.6 [facility] Lymphocytes Auto (Bld) [#/Vo l]Ordered By: Pop Marie on 01-21-2024 Lymphocytes (Bld) [#/Vol] 2.0 10*3/uL 1.00-4.8 [facility] Lymphocytes/100 WBC Auto (Bl d)Ordered By: Pop Marie on 01-21-2024 Lymphocytes/100 WBC (Bld) 25.9 % . [facility] MCH Auto (RBC) [Entitic mass ]Ordered By: Pop Marie on 01-21-2024 MCH (RBC) [Entitic mass] 29.7 pg 24.7-34.3 [facility] MCHC Auto (RBC) [Mass/Vol]Or dered By: Pop Marie on 01-21-2024 MCHC (RBC) [Mass/Vol] 34.0 g/dL 32.0-35.0 [facility] MCV Auto (RBC) [Entitic vol] Ordered By: Pop Marie on 01-21-2024 MCV (RBC) [Entitic vol] 87.2 fL 80-100 [facility] Monocyte distribution width [Entitic volume] in Blood by AutomatedOrdered By: Pop Marie on 01-21-2024 Monocyte distribution width Auto (Bld) [Entitic vol] 18.28 % 0.00-20.00 [facility] Monocytes Auto (Bld) [#/Vol] Ordered By: Pop Marie on 01-21-2024 Monocytes (Bld) [#/Vol] 0.5 10*3/uL 0.0-0.8 [facility] Monocytes/100 WBC Auto (Bld) Ordered By: Pop Marie on 01-21-2024 Monocytes/100 WBC (Bld) 5.8 % . [facility] Neutrophils Auto (Bld) [#/Vo l]Ordered By: Pop Marie on 01-21-2024 Neutrophils (Bld) [#/Vol] 5.2 10*3/uL 1.8-7.7 [facility] Neutrophils/100 WBC Auto (Bl d)Ordered By: Pop Marie on 01-21-2024 Neutrophils/100 WBC (Bld) 66.3 % . [facility] Nitrite Test strip Ql (U)Ord ered By: Pop Marie on 01-21-2024 Nitrite Ql (U) Negative Negative [facility] No Panel InformationOrdered By: Pop Marie on 01-21-2024 Bedside Estimated GFR (eGFR) > 60.0 [facility] Estimated GFR (CKD-EPI) > 60.0 mL/Min [facility] Creatinine Clearance (Chem 78.64 [facility] No Panel InformationOrdered By: PROVIDER TEMP on 01-21-2024 Bedside Glucose Comment Glu2: cleaned meter [facility] Nucleated erythrocytes [Pres ence] in Blood by Automated countOrdered By: Pop Marie on 01-21-2024 Nucleated RBC Auto Ql (Bld) 0.1 /100{WBC} 0-0.5 [facility] Platelet mean volume Auto (B ld) [Entitic vol]Ordered By: Pop Marie on 01-21-2024 Platelet mean volume (Bld) [Entitic vol] 6.7 fL 6.3-10.7 [facility] Platelets Auto (Bld) [#/Vol] Ordered By: Pop Marie on 01-21-2024 Platelets (Bld) [#/Vol] 377 10*3/uL 150-450 [facility] Potassium [Moles/volume] in Serum or PlasmaOrdered By: Pop Marie on 01-21-2024 Potassium [Moles/Vol] 3.3 mmol/L 3.5-5.1 [facility] Protein Auto test strip (U) [Mass/Vol]Ordered By: Pop Marie on 01-21-2024 Protein (U) [Mass/Vol] Negative Negative [facility] Protein [Mass/volume] in Ser um or PlasmaOrdered By: Pop Marie on 01-21-2024 Protein [Mass/Vol] 7.3 g/dL 6.4-8.9 [facility] Prothrombin time (PT)Ordered By: Pop Marie on 01-21-2024 PT Coag (PPP) [Time] 11.2 s 9.0-12.9 [facility] Comment on above: A hematocrit value g reater than 55% may lead to inaccurate results in coagulation testing. Patients having hematocrit values >55% require a special collection tube for coagulation studies. Please contact the laboratory at [phone] for redraw instructions. RBC Auto (Bld) [#/Vol]Ordere d By: Pop Marie on 01-21-2024 RBC (Bld) [#/Vol] 4.51 10*6/uL 3.60-5.00 [facility] Serum or plasma albumin/glob ulin mass ratioOrdered By: Pop Marie on 01-21-2024 Albumin/Globulin [Mass ratio] 1.5 {ratio} [facility] Serum or plasma anion gap de terminationOrdered By: Pop Marie on 01-21-2024 Anion gap [Moles/Vol] 11.0 mmol/L 6.0-15.0 [facility] Serum or plasma high density lipoprotein (HDL) cholesterol measurementOrdered By: Michael Wells on 01-21-2024 Cholesterol in HDL [Mass/Vol] 55 mg/dL [facility] Comment on above: HDL CHOL ATP-III CLA SSIFICATION Cardiovascular RiskHDL > or equal to 60 mg/dL LOWHDL < 40 mg/dL HIGH Serum or plasma non-glucuron idated bilirubin measurement (mass/volume)Ordered By: Pop Marie on 01-21-2024 Bilirubin.indirect [Mass/Vol] 0.5 mg/dL [facility] Serum or plasma total choles terol/high density lipoprotein (HDL) cholesterol mass ratOrdered By: Michael Wells on 01-21-2024 Cholesterol.total/Chol esterol in HDL [Mass ratio] 3.3 {ratio} <5.0 [facility] Sodium [Moles/volume] in Ser um or PlasmaOrdered By: Pop Marie on 01-21-2024 Sodium [Moles/Vol] 140 mmol/L 136-145 [facility] Specific gravity Auto test s trip (U) [Rel density]Ordered By: Pop Marie on 01-21-2024 Specific gravity (U) [Rel density] 1.050 1.001-1.03 0 [facility] Squamous epithelial cells de tection in urine sediment by light microscopyOrdered By: Pop Marie on 01-21-2024 Epithelial cells.squamous LM Ql (Urine sed) Innumerable [HPF] 0-2 [facility] Thyrotropin [Units/volume] i n Serum or PlasmaOrdered By: Michael Wells on 01-21-2024 TSH Qn 1.10 m[IU]/L 0.45-5.33 [facility] Triglyceride [Mass/volume] i n Serum or PlasmaOrdered By: Michael Wells on 01-21-2024 Triglyceride [Mass/Vol] 169 mg/dL 0-149 [facility] Comment on above: TRIG ATP III CLASSIF ICATIONTRIG less than 150 mg/dL NormalTRIG 150-199 mg/dL Borderline highTRIG 200-500 mg/dL High TRIG greater than 500 mg/dL Very highStandard traceable to the Center for Disease Conrtrol and Prevention (CDC) test method. Troponin I.cardiac [Mass/vol ume] in Serum or Plasma by Detection limit <= 0.01 ng/Ordered By: Pop Marie on 01-21-2024 Troponin I.cardiac DL <= 0.01 ng/mL [Mass/Vol] 4.2 pg/mL 0.0-15.0 [facility] Urea nitrogen [Mass/volume] in Serum or PlasmaOrdered By: Pop Marie on 01-21-2024 Urea nitrogen [Mass/Vol] 7 mg/dL 7-25 [facility] Urine bacteria detection by automated methodOrdered By: Pop Marie on 01-21-2024 Bacteria Auto Ql (U) 2+ None Seen [facility] Urine clarity by refractomet ry automatedOrdered By: Pop Marie on 01-21-2024 Clarity Refractometry automated (U) Cloudy Clear [facility] Urine culture routineOrdered By: Pop Marie on 01-21-2024 Bacteria identified Cx Nom (U) 2 Days [facility] Urine glucose measurement by automated test strip (mass/volume)Ordered By: Pop Marie on 01-21-2024 Glucose Auto test strip (U) [Mass/Vol] Normal mg/dL Normal [facility] Urine hemoglobin detection b y automated test stripOrdered By: Pop Marie on 01-21-2024 Hemoglobin Auto test strip Ql (U) Negative Negative [facility] Urine leukocyte esterase det ection by automated test stripOrdered By: Pop Marie on 01-21-2024 Leukocyte esterase Auto test strip Ql (U) 3+ Negative [facility] Urobilinogen Auto test strip (U) [Mass/Vol]Ordered By: Pop Marie on 01-21-2024 Urobilinogen (U) [Mass/Vol] Normal mg/dL Normal [facility] WBC Auto (Bld) [#/Vol]Ordere d By: Pop Marie on 01-21-2024 WBC (Bld) [#/Vol] 7.8 10*3/uL 3.8-11.6 [facility] pH Auto test strip (U)Ordere d By: Pop Marie on 01-21-2024 pH (U) 7.5 [pH] 5.0-9.0 [facility] Serum or plasma trough vanco mycin levelOrdered By: Duke Morris on 07-25-2023 Vancomycin trough [Mass/Vol] 11.0 ug/mL 10.0-20.0 [facility] Comment on above: Last dose: - Physician Orderon 07-23-2023 Physician Order [id number]:1 [id number] Normal [facility] Vanco Troughon 07-23-2023 VANCOMYCIN 7 microgram/mL Low 10-20 [facility] Comment on above: Performed By: #### 2 [id number] #### [facility] [address] [id number] PROF CHEM 8 (BAS METB)on Anion gap [Moles/Vol] 14.5 mmol/L Normal [facility] Comment on above: Performed By: #### B MP #### [facility] [address] [address] [address] Dimitri Veliz Calcium [Mass/Vol] 9.0 mg/dL Normal 8.5-10.1 [facility] Comment on above: Performed By: #### B MP #### [facility] [address] [address] [address] Dimitri Veliz Chloride [Moles/Vol] 101 mmol/L Normal 98-107 [facility] Comment on above: Performed By: #### B MP #### [facility] [address] [place] [address] Dr. Dimitri Veliz CO2 [Moles/Vol] 31.4 mmol/L Normal 21.0-32.0 [facility] Comment on above: Performed By: #### B MP #### [facility] [address] [address] [address] Dimitri Veliz Creatinine [Mass/Vol] 0.82 mg/dL Normal 0.55-1.02 [facility] Comment on above: Performed By: #### B MP #### [facility] [address] [address] [address] Dimitri Veliz EGFR-AF JORDANIAN >60 Normal >=60 [facility] Comment on above: Performed By: #### B MP #### [facility] [address] [address] [address] Dimitri Veliz EGFR-NON AF JORDANIAN >60 Normal >=60 [facility] Comment on above: Performed By: #### B MP #### [facility] [address] [address] [address] Dimitri Veliz Glucose [Mass/Vol] 96 mg/dL Normal 74-106 [facility] Comment on above: Performed By: #### B MP #### [facility] [address] [address] [address] Dimitri Veliz Potassium [Moles/Vol] 3.9 mmol/L Normal 3.5-5.1 [facility] Comment on above: Performed By: #### B MP #### [facility] [address] [place] [address] Dr. Dimitri Veliz Sodium [Moles/Vol] 143 mmol/L Normal 136-145 [facility] Comment on above: Performed By: #### B MP #### [facility] [address] [place] [address] Dr. Dimitri Veliz Urea nitrogen [Mass/Vol] 10.0 mg/dL Normal 7.0-18.0 [facility] Comment on above: Performed By: #### B MP #### [facility] [address] [place] [address] Dr. Dimitri Veliz Urea nitrogen/Creatinine [Mass ratio] 12.2 mg/mg Normal [facility] Comment on above: Performed By: #### B MP #### [facility] [address] [place] [address] Dr. Dimitri Veliz MRI ANKLE LT WO [...] JOEY MENEZES Date: 2023-02-17 07:43 Normal [facility] POINT OF CARE GLUCOSEon 11-29 Glucose [Mass/Vol] 99 mg/dL Normal 74-106 [facility] Comment on above: Performed By: #### P OCGLUC #### [facility] [address] [place] [address] Dr. Dimitri Veliz Glucose [Mass/Vol] 96 mg/dL Normal 74-106 [facility] Comment on above: Performed By: #### P OCGLUC ####[facility] [address] [place], [place] [address]KcDr. Dimitri Veliz Covid-19 PCR (CVDTB)on 11-29 SARS-CoV-2 (COVID-19) RNA TJ+probe Ql (Unsp spec) Not detected Normal NOT DETECTED [facility] Comment on above: Result Comment: This test is not yet approved or cleared by the [place] FDA. When there are no FDA-approved or cleared tests available, and other criteria are met, FDA can make tests available under an emergency access mechanism called an Emergency Use Authorization (EUA). The EUA for this test is supported by the [place] of Health and Human Service's (HHS's) declaration [...] SARS-CoV-2. Performed By: #### C VDTBH #### [facility] [address] [place] [address] Dr. Dimitri Veliz PROF CHEM 8 (BAS METB)on Anion gap [Moles/Vol] 14.8 mmol/L Normal [facility] [place] Comment on above: Performed By: #### B MP #### [facility] [address] [place] [address] Dr. Dimitri Veliz Calcium [Mass/Vol] 9.4 mg/dL Normal 8.5-10.1 [facility] Comment on above: Performed By: #### B MP #### [facility] [address] [place] [address] Dr. Dimitri Veliz Chloride [Moles/Vol] 100 mmol/L Normal 98-107 [facility] Comment on above: Performed By: #### B MP #### [facility] [address] [address] [address] Dimitri Veliz CO2 [Moles/Vol] 25.1 mmol/L Normal 21.0-32.0 [facility] Comment on above: Performed By: #### B MP #### [facility] [address] [address] [address] Dimitri Veliz Creatinine [Mass/Vol] 0.95 mg/dL Normal 0.55-1.02 [facility] Comment on above: Performed By: #### B MP #### [facility] [address] [address] [address] Dimitri Veliz EGFR-AF JORDANIAN >60 Normal >=60 [facility] Comment on above: Performed By: #### B MP #### [facility] [address] [place] [address] Dr. Dimitri Veliz EGFR-NON AF JORDANIAN >60 Normal >=60 [facility] Comment on above: Performed By: #### B MP #### [facility] [address] [address] [address] Dimitri Veliz Glucose [Mass/Vol] 82 mg/dL Normal 74-106 [facility] Comment on above: Performed By: #### B MP #### [facility] [address] [address] [address] Dimitri Veliz Potassium [Moles/Vol] 3.9 mmol/L Normal 3.5-5.1 [facility] Comment on above: Performed By: #### B MP #### [facility] [address] [address] [address] Dimitri Veliz Sodium [Moles/Vol] 136 mmol/L Normal 136-145 [facility] Comment on above: Performed By: #### B MP #### [facility] [address] [place] [address] Dr. Dimitri Veliz Urea nitrogen [Mass/Vol] 12.0 mg/dL Normal 7.0-18.0 [facility] Comment on above: Performed By: #### B MP #### [facility] [address] [address] [address] Dimitri Veliz Urea nitrogen/Creatinine [Mass ratio] 12.6 mg/mg Normal [facility] Comment on above: Performed By: #### B #### [facility] [address] [place] [address] Dr. Dimitri Veliz XR ANKLE LT MIN [...] SUNSHINE DUBON Date: 2022-12-09 05:04 Normal [facility] US Carotid, Bilateralon 09-30 US Carotid, Bilateral [...] by Gabe Hayes on 10/19/2022 1050 Normal [facility] Manager Books BNPon 10-06-2022 Natriuretic peptide B (Bld) [Mass/Vol] 19.0 pg/mL Normal <=900.0 [facility] Comment on above: Performed By: #### B AUGUSTO BARAHONA, CMP ####[facility] [address] [place], [place] [address]Uz. Dimitri Veliz CARDIAC ALICIA ADMITon 022 CK [Catalytic activity/Vol] 94 U/L Normal 26-192 [facility] Comment on above: Performed By: #### B JUN, AUGUSTO, CMP ####[facility] [address] [id number]. Dimitri Veliz CK.MB [Mass/Vol] 2.43 ng/mL Normal <=3.60 [facility] Comment on above: Performed By: #### B NATURAL RESOURCES FACULTY MEMBER, CMADM, CMP ####[facility] [address] [id number]. Dimitri Jose Alfredo HSTROP 11.2 pg/mL Normal 4.0-51.3 [facility] Comment on above: Result Comment: CUT- OFF POINTS HAVE BEEN ESTABLISHED BASED ON THE FOURTH UNIVERSAL DEFINITIONS OF MYOCARDIAL INFARCTION. THE UPPER REFERENCE LIMIT (URL) OF TROPONIN, DEFINED THE 99TH PERCENTILE OF cTnI DISTRIBUTION IN A REFERENCE POPULATION, HAS BEEN CONFIRMED THE DECISION THRESHOLD FOR [place] DIAGNOSIS. Performed By: #### B NATURAL RESOURCES FACULTY MEMBER, CMADM, CMP ####[facility] [address] [address]Dr. Dimitri Jose Alfredo KAY 60 ng/mL Normal 9-82 [facility] Comment on above: Performed By: #### B NATURAL RESOURCES FACULTY MEMBER, CMADM, CMP ####[facility] [address] [address]Dr. Dimitri Jose Alfredo CBC AUTO DIFFon 10-06-2022 BASO # 0.1 103/ul Normal 0.0-0.1 [facility] Comment on above: Performed By: #### C BC ####[facility] [address] [address]Dr. Dianajayant Veliz Basophils/100 WBC (Bld) 1.1 % Normal 0.2-2.0 [facility] Comment on above: Performed By: #### C BC ####[facility] [address] [address]Dr. Dianajayant Veliz EO # 0.3 103/ul Normal 0.0-0.7 [facility] Comment on above: Performed By: #### C BC ####[facility] [address] [address]Dr. Dianajayant Veliz Eosinophils/100 WBC (Bld) 3.3 % Normal 0.9-7.0 [facility] Comment on above: Performed By: #### C BC ####[facility] [address] [address]Dr. Dimitri Veliz Erythrocyte distribution width (RBC) [Ratio] 13.0 % Normal 11.0-15.0 [facility] Comment on above: Performed By: #### C BC ####[facility] [address] [place], [place] [address]Dr. Dimitri Veliz Hematocrit (Bld) [Volume fraction] 38.1 % Normal 36.0-48.0 [facility] Comment on above: Performed By: #### C BC ####[facility] [address] [place], [place] [address]Dr. Dimitri Veliz Hemoglobin (Bld) [Mass/Vol] 12.8 g/dL Normal 12.0-16.0 [facility] Comment on above: Performed By: #### C BC ####[facility] [address] [place], [place] [address]Dr. Dimitri Veliz IG # 0.03 10e3/ul Normal 0.00-0.03 [facility] Comment on above: Performed By: #### C BC ####[facility] [address] [place], [place] [address]Dr. Dimitri Veliz IG % 0.4 % Normal 0.0-0.5 [facility] Comment on above: Performed By: #### C BC ####[facility] [address] [place], [place] [address]Dr. Dimitri Veliz LYMPH # 2.2 103/ul Normal 1.2-3.8 [facility] Comment on above: Performed By: #### C BC ####[facility] [address] [place], [place] [address]Dr. Dimitri Veliz Lymphocytes/100 WBC (Bld) 25.7 % Normal 20.5-60.0 [facility] Comment on above: Performed By: #### C BC ####[facility] [address] [place], [place] [address]Dr. Dimitri Veliz MANUAL DIFF REQ NO Normal [facility] Comment on above: Performed By: #### C BC ####[facility] [address] [id number]. Dimitri Jose Alfredo MCH (RBC) [Entitic mass] 30.1 pg Normal 26.7-34.0 [facility] Comment on above: Performed By: #### C BC ####[facility] [address] [id number]. Dimitri Veliz MCHC (RBC) [Mass/Vol] 33.6 g/dL Normal 29.9-35.2 [facility] Comment on above: Performed By: #### C BC ####[facility] [address] [id number]. Dimitri Jose Alfredo MCV (RBC) [Entitic vol] 89.6 fL Normal 81.0-99.0 [facility] Comment on above: Performed By: #### C BC ####[facility] [address] [place], [place] [address]Dr. Dimitri Veliz MONO # 0.7 103/ul Normal 0.3-0.8 [facility] Comment on above: Performed By: #### C BC ####[facility] [address] [address]Dr. Dianajayant eVliz Monocytes/100 WBC (Bld) 7.9 % Normal 1.7-12.0 [facility] Comment on above: Performed By: #### C BC ####[facility] [address] [place], [place] [address]Dr. Dimitri Veliz NEUT # 5.2 103/ul Normal 1.4-6.5 [facility] Comment on above: Performed By: #### C BC ####[facility] [address] [place], [place] [address]Dr. Dimitri Veliz Neutrophils/100 WBC (Bld) 61.6 % Normal 43.0-75.0 [facility] Comment on above: Performed By: #### C BC ####[facility] [address] [place], [place] [address]Dr. Dimitri Veliz Platelet mean volume (Bld) [Entitic vol] 8.9 fL Critically low 9.5-13.5 [facility] Comment on above: Performed By: #### C BC ####[facility] [address] [address] [address]Dr. Dianajayant Veliz PLT 429 103/ul Normal 150-450 [facility] Comment on above: Performed By: #### C BC ####[facility] [address] [id number]. Dimitri Veliz RBC 4.25 106/ul Normal 4.20-5.40 [facility] Comment on above: Performed By: #### C BC ####[facility] [address] [id number]. Dimitri Veliz WBC 8.5 103/ul Normal 4.0-11.0 [facility] Comment on above: Performed By: #### C BC ####[facility] [address] [address]Dr. Dimitri Veliz ER URINE PROFILEon 2 Bilirubin Ql (U) Negative Normal NEGATIVE [facility] Comment on above: Performed By: #### U MICRO, ERUR ####[facility] [address] [place], [place] [address]Dr. Dimitri Veliz Clarity (U) CLEAR Normal CLEAR [facility] Comment on above: Performed By: #### U MICRO, ERUR ####[facility] [address] [place], [place] [address]Dr. Dimitri Veliz Color (U) YELLOW Normal YELLOW [facility] Comment on above: Performed By: #### U MICRO, ERUR ####[facility] [address] [place], [place] [address]Dr. Dimitri Veliz ERUAHD A micrscopic examina tion will be performed if indicated. Normal [facility] Comment on above: Performed By: #### U MICRO, ERUR ####[facility] [address] [place], [place] [address]Dr. Dimitri Veliz Glucose Ql (U) Negative Normal NEGATIVE [facility] Comment on above: Performed By: #### U MICRO, ERUR ####[facility] [address] [place], [place] [address]Dr. Dimitri Veliz Hemoglobin Ql (U) TRACE-INTACT Abnormal NEGATIVE [facility] Comment on above: Performed By: #### U MICRO, ERUR ####[facility] [address] [address] [address]Dr. Dimitri Veliz Ketones Ql (U) Negative Normal NEGATIVE [facility] Comment on above: Performed By: #### U MICRO, ERUR ####[facility] [address] [place], [place] [address]Dr. Dimitri Veliz LEUKOCYTES Negative Normal NEGATIVE [facility] Comment on above: Performed By: #### U MICRO, ERUR ####[facility] [address] [place], [place] [address]Dr. Dimitri Veliz Nitrite Ql (U) Negative Normal NEGATIVE [facility] Comment on above: Performed By: #### U MICRO, ERUR ####[facility] [address] [place], [place] [address]Dr. Dimitri Veliz pH (U) 6.0 [pH] Normal 5-9 [facility] Comment on above: Performed By: #### U MICRO, ERUR ####[facility] [address] [place], [place] [address]Dr. Dimitri Veliz SPEC GRAVITY 1.025 Normal 1.005-<=1. 025 [facility] Comment on above: Performed By: #### U MICRO, ERUR ####[facility] [address] [place], [place] [address]Dr. Dimitri Veliz UA PROTEIN Negative Normal NEGATIVE/ TRACE [facility] Comment on above: Performed By: #### U MICRO, ERUR ####[facility] [address] [place], [place] [address]Dr. Dianajayant Veliz UR MICRO IND INDICATED Normal [facility] Comment on above: Performed By: #### U MICRO, ERUR ####[facility] [address] [place], [place] [address]Dr. Dianajayant Veliz Urobilinogen Qn (U) 0.2 {Padmini'U}/dL Normal 0.2 - 1. 0 [facility] Comment on above: Performed By: #### U MICRO, ERUR ####[facility] [address] [place] [address]Dr. Dimitri Veliz PROF 14(COMP METB)on 022 Albumin [Mass/Vol] 4.0 g/dL Normal 3.4-5.0 [facility] Comment on above: Performed By: #### B NATURAL RESOURCES FACULTY MEMBER, CMADM, CMP ####[facility] [address] [place] [address]Dr. Dimitri Veliz Albumin/Globulin [Mass ratio] 1.0 {ratio} Normal [facility] Comment on above: Performed By: #### B NATURAL RESOURCES FACULTY MEMBER, CMADM, CMP ####[facility] [address] [place] [address]Dr. Dimitri Veliz ALP [Catalytic activity/Vol] 91 U/L Normal 46-116 [facility] Comment on above: Performed By: #### B NATURAL RESOURCES FACULTY MEMBER, CMADM, CMP ####[facility] [address] [place] [address]Dr. Dimitri Veliz ALT [Catalytic activity/Vol] 34 U/L Normal 14-59 [facility] Comment on above: Performed By: #### B NATURAL RESOURCES FACULTY MEMBER, CMADM, CMP ####[facility] [address] [place] [address]Dr. Dimitri Veliz Anion gap [Moles/Vol] 8.6 mmol/L Normal [facility] Comment on above: Performed By: #### B NATURAL RESOURCES FACULTY MEMBER, CMADM, CMP ####[facility] [address] [place] [address]Dr. Dimitri Veliz AST [Catalytic activity/Vol] 18 U/L Normal 15-37 [facility] Comment on above: Performed By: #### B NATURAL RESOURCES FACULTY MEMBER, CMADM, CMP ####[facility] [address] [place] [address]Dr. Dimitri Veliz Bilirubin [Mass/Vol] 0.5 mg/dL Normal 0.2-1.0 [facility] Comment on above: Performed By: #### B NAT[employer] FACULTY MEMBER, CMADM, CMP ####[facility] [address] [place] [address]Dr. Dimitri Veliz Calcium [Mass/Vol] 9.5 mg/dL Normal 8.5-10.1 [facility] Comment on above: Performed By: #### B NATURAL RESOURCES FACULTY MEMBER, CMADM, CMP ####[facility] [address] [place] [id number]. Dimitri Veliz Chloride [Moles/Vol] 101 mmol/L Normal 98-107 [facility] Comment on above: Performed By: #### B NATURAL RESOURCES FACULTY MEMBER, CMADM, CMP ####[facility] [address] [place] [id number]. Dimitri Veliz CO2 [Moles/Vol] 29.1 mmol/L Normal 21.0-32.0 [facility] Comment on above: Performed By: #### B NATURAL RESOURCES FACULTY MEMBER, CMADM, CMP ####[facility] [address] [place] [id number]. Dimitri Veliz Creatinine [Mass/Vol] 0.86 mg/dL Normal 0.55-1.02 [facility] Comment on above: Performed By: #### B NATURAL RESOURCES FACULTY MEMBER, CMADM, CMP ####[facility] [address]mp[address] [place] [id number]. Dimitri Veliz EGFR-AF JORDANIAN >60 Normal >=60 [facility] Comment on above: Performed By: #### B NATURAL RESOURCES FACULTY MEMBER, CMADM, CMP ####[facility] [address] [place] [id number]. Dimitri Veliz EGFR-NON AF JORDANIAN >60 Normal >=60 [facility] Comment on above: Performed By: #### B NATURAL RESOURCES FACULTY MEMBER, CMADM, CMP ####[facility] [address] [place] [id number]. Dimitri Veliz Globulin (S) [Mass/Vol] 4.0 g/dL Normal [facility] Comment on above: Performed By: #### B NATURAL RESOURCES FACULTY MEMBER, CMADM, CMP ####[facility] [address] [place] [id number]. Dimitri Veliz Glucose [Mass/Vol] 110 mg/dL Critically high 74-106 [facility] Comment on above: Performed By: #### B NATURAL RESOURCES FACULTY MEMBER, CMADM, CMP ####[facility] [address] [place] [address]Dr. Dimtiri Veliz Potassium [Moles/Vol] 3.7 mmol/L Normal 3.5-5.1 [facility] Comment on above: Performed By: #### B NAT[employer] RES[employer] FACULTY MEMBER, CMADM, CMP ####[facility] [address] [place] [address]Dr. Dimitri Veliz Protein [Mass/Vol] 8.0 g/dL Normal 6.4-8.2 [facility] Comment on above: Performed By: #### B NATURAL RESOURCES FACULTY MEMBER, CMADM, CMP ####[facility] [address] [place] [address]Dr. Dimitri Veliz Sodium [Moles/Vol] 135 mmol/L Critically low 136-145 [facility] Comment on above: Performed By: #### B NATURAL RESOURCES FACULTY MEMBER, CMADM, CMP ####[facility] [address] [place], [place] [address]Dr. Dimitri Veliz Urea nitrogen [Mass/Vol] 14.0 mg/dL Normal 7.0-18.0 [facility] Comment on above: Performed By: #### B NATURAL RESOURCES FACULTY MEMBER, CMADM, CMP ####[facility] [address] [place], [place] [address]Dr. Dimitri Veliz Urea nitrogen/Creatinine [Mass ratio] 16.3 mg/mg Normal [facility] Comment on above: Performed By: #### B NATURAL RESOURCES FACULTY MEMBER, CMADM, CMP ####[facility] [address] [place], [place] [address]Dr. Dimitri Jose Alfredo URINE MICROSCOPIC ONLYon BACTERIA NONE SEEN Normal NONE SEEN [facility] Comment on above: Performed By: #### U MICRO, ERUR ####[facility] [address] [place], [place] [address]Dr. Dimitri Jose Alfredo Bacteria identified Cx Nom (U) NOT INDICATED Normal [facility] Comment on above: Performed By: #### U MICRO, ERUR ####[facility] [address] [place], [place] [address]Dr. Dimitri Veliz CAST NONE SEEN Normal NONE SEEN [facility] Comment on above: Performed By: #### U MICRO, ERUR ####[facility] [address] [place] [address]Dr. Dimitri Jose Alfredo Crystals LM Nom (Urine sed) NONE SEEN Normal NONE SEEN [facility] Comment on above: Performed By: #### U MICRO, ERUR ####[facility] [address] [place] [address]Dr. Dimitri Veliz Epithelial cells LM Ql (Urine sed) MODERATE Abnormal NONE SEEN /RARE [facility] Comment on above: Performed By: #### U MICRO, ERUR ####[facility] [address] [place] [address]Dr. Dimitri Veliz MUCOUS NONE SEEN Normal NONE SEEN [facility] Comment on above: Performed By: #### U MICRO, ERUR ####[facility] [address] [place] [address]Dr. Dimitri Veliz RBC 2-5 Abnormal 0-2 [facility] Comment on above: Performed By: #### U MICRO, ERUR ####[facility] [address]unm[address] [place] [address]Dr. Dimitri Veliz WBC NONE SEEN Normal NONE SEEN [facility] Comment on above: Performed By: #### U MICRO, ERUR ####[facility] [address] [place] [address]Dr. Dimitri Veliz XR CHEST 2 Von 10-06-2022 [...] SHELBY ECHAVARRIA Date: 2022-10-06 13:59 Normal [facility] CT ABD/PELVIS WO CONon 08-06 [...] by: WILLIAM CLAUDIO Date: 2022-08-06 08:52 Normal [facility] ER URINE PROFILEon 2 Bilirubin Ql (U) Negative Normal NEGATIVE [facility] Comment on above: Performed By: #### MONSTER SHEPARD #### [facility] [address] [place] [address] Dr. Dimitri Veliz Clarity (U) CLEAR Normal CLEAR [facility] Comment on above: Performed By: #### MONSTER SHEPARD #### [facility] [address] [place] [address] Dr. Dimitri Veliz Color (U) LT. YELLOW Normal YELLOW [facility] Comment on above: Performed By: #### MONSTER SHEPARD #### [facility] [address] [place] [address] Dr. Dimitri ESQUIVEL A micrscopic examina tion will be performed if indicated. Normal [facility] Comment on above: Performed By: #### MONSTER SHEPARD #### [facility] [address] [place] [address] Dr. Dimitri Veliz Glucose Ql (U) Negative Normal NEGATIVE [facility] Comment on above: Performed By: #### Kevin MIMS UMICRO #### [facility] [address] [place] [address] Dr. Dimitri Veliz Hemoglobin Ql (U) SMALL Abnormal NEGATIVE [facility] Comment on above: Performed By: #### Kevin MIMS, UMICRO #### [facility] [address] [place] [address] [address] Dimitri Veliz Ketones Ql (U) Negative Normal NEGATIVE [facility] Comment on above: Performed By: #### Kevin MIMS UMICRO #### [facility] [address] [place] [address] Dr. Dimitri Veliz LEUKOCYTES Negative Normal NEGATIVE [facility] Comment on above: Performed By: #### Kevin MIMS UMICRO #### [facility] [address] [place] [address] Dr. Dimitri Veliz Nitrite Ql (U) Negative Normal NEGATIVE [facility] Comment on above: Performed By: #### Kevin MIMS UMICRO #### [facility] [address] [place] [address] Dr. Dimitri Veliz pH (U) 6.0 [pH] Normal 5-9 [facility] Comment on above: Performed By: #### Kevin MIMS UMICRO #### [facility] [address] [place] [address] Dr. Dimitri Veliz SPEC GRAVITY 1.025 Normal 1.005-<=1. 025 [facility] Comment on above: Performed By: #### Kevin MIMS UMICRO #### [facility] [address] [place] [address] Dr. Dimitri Veliz UA PROTEIN Negative Normal NEGATIVE/ TRACE [facility] Comment on above: Performed By: #### Kevin MIMS UMICRO #### [facility] [address] [place] [address] Dr. Dimitri Veliz UR MICRO IND INDICATED Normal [facility] Comment on above: Performed By: #### Kevin MIMS UMICRO #### [facility] [address] [place], [place] [id number] Dr. Dimitri Veliz Urobilinogen Qn (U) 0.2 {Padmini'U}/dL Normal 0.2 - 1. 0 [facility] Comment on above: Performed By: #### Kevin MIMS UMICRO #### [facility] [address] [place] [address] Dr. Dimitri Veliz URINE MICROSCOPIC ONLYon BACTERIA TRACE Abnormal NONE SEEN [facility] Comment on above: Performed By: #### Kevin MIMS UMICRO #### [facility] [address] [place] [address] Dr. Dimitri Veliz Bacteria identified Cx Nom (U) NOT INDICATED Normal [facility] Comment on above: Performed By: #### Kevin MIMS UMICRO #### [facility] [address] [place] [address] Dr. Dimitri Veliz CAST NONE SEEN Normal NONE SEEN [facility] Comment on above: Performed By: #### Kevin MIMS UMICRO #### [facility] [address] [place] [address] Dr. Dimitri Veliz Crystals LM Nom (Urine sed) NONE SEEN Normal NONE SEEN [facility] Comment on above: Performed By: #### Kevin MIMS UMICRO #### [facility] [address] [place] [address] Dr. Dimitri Veliz Epithelial cells LM Ql (Urine sed) MODERATE Abnormal NONE SEEN /RARE [facility] Comment on above: Performed By: #### Kevin MIMS UMICRO #### [facility] [address] [place] [address] Dr. Dimitri Veliz MUCOUS NONE SEEN Normal NONE SEEN [facility] Comment on above: Performed By: #### Kevin MIMS UMICRO #### [facility] [address] [place] [address] Dr. Dimitri Veliz RBC 2-5 Abnormal 0-2 [facility] Comment on above: Performed By: #### Kevin MIMS UMICRO #### [facility] [address] [place] [address] Dr. Dimitri Veliz WBC 0-2 Abnormal NONE SEEN [facility] Comment on above: Performed By: #### E MONSTER MIMS #### [facility] [address] [place] [address] [address] Dimitri Veliz XR LSPINE 2_3 VIEWSon [...] JANNETTE QUINN Date: 2022-08-06 08:26 Normal [facility] XR knee RT 4V*on 07-22-2022 XR knee RT 4V* [facility] [employer] Other XR knee RT 4V* [facility] [employer] Other XR knee RT 4V* [address] [place] [address] [employer] Other XR knee RT 4V* [place] [address] No rt [employer] Other XR knee RT 4V* XRay Report [employer] Other XR knee RT 4V* Signed [employer] Other XR knee RT 4V* Patient: Eva Swenson raza Gaspar MR#: [id number] [place] [employer] Other XR knee RT 4V* [address] [employer] Other XR knee RT 4V* : 1970 Acct:[id number] [place] [employer] Other XR knee RT 4V* Age/Sex: 52 / F ADM Date: 07/22/22 [employer] Other XR knee RT 4V* Loc: [id number] Room: pe: REG CLI [employer] Other XR knee RT 4V* Attending Dr: Abel Wan [facility] [employer] Other XR knee RT 4V* Copies to: Abel go [employer] [facility] [employer] Other XR knee RT 4V* Ordering Provider: Candace Esteves [employer] Other XR knee RT 4V* Date of Service: 07/22/22 [employer] Other XR knee RT 4V* XR/XR knee RT 4V*: Acute pain of right knee [employer] Other XR knee RT 4V* 4 views RIGHT knee p paul film [employer] Other XR knee RT 4V* COMPARISON:None [employer] Other XR knee RT 4V* HISTORY:Chronic [place] T knee pain for several months. [employer] Other XR knee RT 4V* No fracture, disloca tion or focal soft tissue abnormality seen.No joint effusion identified. [employer] Other XR knee RT 4V* X R/XR knee RT 4V* [employer] Other XR knee RT 4V* IMPRESSION:No acute findings [employer] Other XR knee RT 4V* Impression dictated by: Danielito Haro M.D.07/22/2022 5:37 PM [employer] Other XR knee RT 4V* Dictation Location: [place] [address] [employer] Other XR knee RT 4V* Transcribed By: PWS 07/22/22 1737 [place] [employer] Other XR knee RT 4V* Dictated By: Jesus Haro DO 07/22/22 173 [employer] Other XR knee RT 4V* Signed By: [employer] Other XR knee RT 4V* 07/22/22 173 [employer] Other Complete Blood Counton 04-23 Erythrocyte distribution width (RBC) [Ratio] 13.1 % Normal 11.0-15.0 [facility] Comment on above: Performed By: #### L IPD, CMP, CBC #### [facility] [address] [place], [place] [id number] Hematocrit (Bld) [Volume fraction] 39.9 % Normal 35.0-47.0 [facility] Comment on above: Performed By: #### L IPD, CMP, CBC #### [facility] [address] [place], [place] [id number] Hemoglobin (Bld) [Mass/Vol] 12.8 g/dL Normal 11.6-15.5 [facility] Comment on above: Performed By: #### L IPD, CMP, CBC #### [facility] [address] [place], [place] [id number] MCH (RBC) [Entitic mass] 29.9 pg Normal 27.0-33.0 [facility] Comment on above: Performed By: #### L IPD, CMP, CBC #### [facility] [address] [place], [place] [id number] MCHC (RBC) [Mass/Vol] 32.1 g/dL Normal 32.0-36.0 [facility] Comment on above: Performed By: #### L IPD, CMP, CBC #### [facility] [address] [place], [place] [id number] MCV (RBC) [Entitic vol] 93 fL Normal 80-100 [facility] Comment on above: Performed By: #### L IPD, CMP, CBC #### [facility] [address] [place], [place] [id number] Platelet mean volume (Bld) [Entitic vol] 9.00 fL Normal 7.50-12.50 [facility] Comment on above: Performed By: #### L IPD, CMP, CBC #### [facility] [address] [place], [place] [id number] Platelets (Bld) [#/Vol] 336 10*3/uL Normal 140-400 [facility] Comment on above: Performed By: #### L IPD, CMP, CBC #### [facility] [address] [place], [place] [id number] RBC (Bld) [#/Vol] 4.28 10*6/uL Normal 3.90-5.20 [facility]ist Comment on above: Performed By: #### L IPD, CMP, CBC #### [facility] [address] [place], [place] [id number] RDW-SD 44.9 fL Normal 37.0-50.0 [facility] Comment on above: Performed By: #### L IPD, CMP, CBC #### [facility] [address] [place], [place] [id number] WBC (Bld) [#/Vol] 7.0 10*3/uL Normal 3.8-11.0 [facility] [employer] Comment on above: Performed By: #### L IPD, CMP, CBC #### [facility] [address] [place], [place] [id number] Comprehensive Metabolic Pane [facility] 04-23-2022 Albumin [Mass/Vol] 4.5 g/dL Normal 3.6-5.1 [facility] [employer] Comment on above: Performed By: #### L IPD, CMP, CBC #### [facility] [address] [place], [place] [id number] Albumin/Globulin [Mass ratio] 1.8 {ratio} Normal 1.0-2.5 [facility] Comment on above: Performed By: #### L IPD, CMP, CBC #### [facility] [address] [place], [place] [id number] ALP [Catalytic activity/Vol] 82 U/L Normal 35-119 [facility] Comment on above: Performed By: #### L IPD, CMP, CBC #### [facility] [address] [place], [place] [id number] ALT [Catalytic activity/Vol] 44 U/L High 6-33 [facility] Comment on above: Result Comment: 10/29 Female reference range changed. Performed By: #### L IPD, CMP, CBC #### [facility] [address] [place], [place] [id number] Anion gap [Moles/Vol] 17 mmol/L Normal 12-20 [facility] Comment on above: Result Comment: Effe ctive 12/04/2019 reference range changed. Performed By: #### L IPD, CMP, CBC #### [facility] [address] [place], [place] [id number] AST [Catalytic activity/Vol] 34 U/L Normal 9-34 [facility] Comment on above: Performed By: #### L IPD, CMP, CBC #### [facility] [address] [place], [place] [id number] Bilirubin [Mass/Vol] 0.33 mg/dL Normal 0.30-1.20 [facility] Comment on above: Performed By: #### L IPD, CMP, CBC #### [facility] [address] [place], [place] [id number] BUN/CREA 16 Ratio Normal 6-22 [facility] Comment on above: Performed By: #### L IPD, CMP, CBC #### [facility] [address], [place] [id number] Calcium [Mass/Vol] 9.4 mg/dL Normal 8.6-10.2 [facility] Comment on above: Performed By: #### L IPD, CMP, CBC #### [facility] [address] [place], [place] [id number] Chloride [Moles/Vol] 101 mmol/L Normal 98-107 [facility] Comment on above: Performed By: #### L IPD, CMP, CBC #### [facility] [address] [place], [place] [id number] CO2 [Moles/Vol] 24 mmol/L Normal 20-31 [facility] Comment on above: Performed By: #### L IPD, CMP, CBC #### [facility] [address] [place], [place] [id number] Creatinine [Mass/Vol] 0.8 mg/dL Normal 0.6-1.4 [facility]ist Comment on above: Performed By: #### L IPD, CMP, CBC #### [facility] [address] [place], [place] [id number] eGFRAA 91 mL/min/1.73m2 Normal >60 [facility] Comment on above: Performed By: #### L IPD, CMP, CBC #### [facility] [address], [place] [id number] eGFRNAA 75 mL/min/1.73m2 Normal >60 [facility] Comment on above: Performed By: #### L IPD, CMP, CBC #### [facility] [address] [place], [place] [id number] Globulin (S) [Mass/Vol] 2.5 g/dL Normal 1.9-3.7 [facility] Comment on above: Performed By: #### L IPD, CMP, CBC #### [facility] [address] [place], [place] [id number] Glucose [Mass/Vol] 92 mg/dL Normal 65-99 [facility] Specialist Comment on above: Result Comment: For FASTING Glucose --- ADA reference ranges: Normal 65-99 mg/dl Prediabetes 100-125 Diabetes >/= 126 Performed By: #### L IPD, CMP, CBC #### [facility] [address], [place] [id number] Potassium [Moles/Vol] 4.1 mmol/L Normal 3.5-5.5 [facility] Comment on above: Performed By: #### L IPD, CMP, CBC #### [facility] [address], [place] [id number] Protein [Mass/Vol] 7.0 g/dL Normal 6.1-8.1 [facility] Specialist Comment on above: Performed By: #### L IPD, CMP, CBC #### [facility] [address], [place] [id number] Sodium [Moles/Vol] 137 mmol/L Normal 135-146 [facility] Comment on above: Performed By: #### L IPD, CMP, CBC #### [facility] [address], [place] [id number] Urea nitrogen [Mass/Vol] 13 mg/dL Normal 7-25 [facility] Comment on above: Performed By: #### L IPD, CMP, CBC #### [facility] [address] [place], [place] [id number] Lipid Panelon 04-23-2022 Cholesterol [Mass/Vol] 332 mg/dL High 125-200 [facility] Comment on above: Result Comment: Low risk < 200mg/dL Borderline risk 201-239 mg/dl High risk > or equal to 240 Performed By: #### L IPD, CMP, CBC #### [facility] [address], [place] [id number] Cholesterol in HDL [Mass/Vol] 50 mg/dL Normal >40 [facility] Comment on above: Result Comment: High Cardiovascular Risk HDL <40 mg/dL Low Cardiovascular Risk HDL > or equal to 60 mg/dl Performed By: #### L IPD, CMP, CBC #### [facility] [address], [place] [id number] Cholesterol in LDL [Mass/Vol] 230 mg/dL Normal [facility] Comment on above: Result Comment: LDL ATP III CLASSIFICATION LDL less than 100 mg/dl Optimal LDL 100-129 mg/dl Near or above optimal LDL 130-159 Borderline high LDL 160-189 High LDL greater than 189 mg/dl Very High Performed By: #### L IPD, CMP, CBC #### [facility] [address] [place], [place] [id number] Cholesterol in VLDL [Mass/Vol] 52 mg/dL Normal [facility] Comment on above: Performed By: #### L IPD, CMP, CBC #### [facility] [address] [place], [place] [id number] Cholesterol.total/Chol esterol in HDL [Mass ratio] 7 {ratio} Normal [facility] Comment on above: Performed By: #### L IPD, CMP, CBC #### [facility] [address], [place] [id number] Triglyceride [Mass/Vol] 258 mg/dL High 30-150 [facility] Manager [employer] Comment on above: Result Comment: TRIG ATPIII CLASSIFICATIONS TRIG less than 150 mg/dl Normal TRIG 150-199 mg/dl Borderline High TRIG 200-500 mg/dl High TRIG greather than 500 mg/dl Very High Performed By: #### L IPD, CMP, CBC #### [facility] [address] [place], [place] [id number] Complete Blood Count with Au to Diffon 01-21-2022 Basophils (Bld) [#/Vol] 0.08 10*3/uL Normal 0.00-0.20 [facility] Manager [employer] Comment on above: Performed By: #### L IPD CMP, CBCAD #### [facility] [address], [place] [id number] Basophils/100 WBC (Bld) 1.0 % Normal [facility] Manager [employer] Comment on above: Performed By: #### L IPD CMP, CBCAD #### [facility] [address] [place], [place] [id number] Eosinophils (Bld) [#/Vol] 0.29 10*3/uL Normal 0.02-0.50 [facility] Manager [employer] Comment on above: Performed By: #### L GLORIA CMP, CBCAD #### [facility] [address] [place], [place] [id number] Eosinophils/100 WBC (Bld) 3.5 % Normal [facility] Manager [employer] Comment on above: Performed By: #### L IPD CMP, CBCAD #### [facility] [address] [place], [place] [id number] Erythrocyte distribution width (RBC) [Ratio] 13.2 % Normal 11.0-15.0 [facility] Manager [employer] Comment on above: Performed By: #### L IPD CMP, CBCAD #### [facility] [address], [place] [id number] Hematocrit (Bld) [Volume fraction] 38.8 % Normal 35.0-47.0 [facility] Manager Books Comment on above: Performed By: #### L IPD CMP, CBCAD #### [facility] [address], [place] [id number] Hemoglobin (Bld) [Mass/Vol] 12.6 g/dL Normal 11.6-15.5 [facility] Comment on above: Performed By: #### L IPD, CMP, CBCAD #### [facility] [address], [place] [id number] Lymphocytes (Bld) [#/Vol] 3.5 10*3/uL Normal 0.9-3.9 [facility] Comment on above: Performed By: #### L IPD, CMP, CBCAD #### [facility] [address] [place], [place] [id number] Lymphocytes/100 WBC (Bld) 42.2 % Normal [facility] Comment on above: Performed By: #### L IPD CMP, CBCAD #### [facility] [address] [place], [place] [id number] MCH (RBC) [Entitic mass] 29.6 pg Normal 27.0-33.0 [facility] Comment on above: Performed By: #### L IPD CMP, CBCAD #### [facility] [address], [place] [id number] MCHC (RBC) [Mass/Vol] 32.5 g/dL Normal 32.0-36.0 [facility] Comment on above: Performed By: #### L IPD, CMP, CBCAD #### [facility] [address] [place], [place] [id number] MCV (RBC) [Entitic vol] 91 fL Normal 80-100 [facility] Comment on above: Performed By: #### L IPD, CMP, CBCAD #### [facility] [address], [place] [id number] Monocytes (Bld) [#/Vol] 0.6 10*3/uL Normal 0.2-0.9 [facility] [facility] Comment on above: Performed By: #### L IPD, CMP, CBCAD #### [facility] [address], [place] [id number] Monocytes/100 WBC (Bld) 7.4 % Normal [facility] Comment on above: Performed By: #### L IPD, CMP, CBCAD #### [facility] [address], [place] [id number] Neutrophils (Bld) [#/Vol] 3.8 10*3/uL Normal 1.5-7.8 [facility] Comment on above: Performed By: #### L IPD, CMP, CBCAD #### [facility] [address], [place] [id number] Neutrophils/100 WBC (Bld) 45.5 % Normal [facility] Comment on above: Performed By: #### L IPD, CMP, CBCAD #### [facility] [address], [place] [id number] Platelet mean volume (Bld) [Entitic vol] 9.20 fL Normal 7.50-12.50 [facility] Comment on above: Performed By: #### L IPD, CMP, CBCAD #### [facility] [address], [place] [id number] Platelets (Bld) [#/Vol] 384 10*3/uL Normal 140-400 [facility] Comment on above: Performed By: #### L IPD, CMP, CBCAD #### [facility] [address], [place] [id number] RBC (Bld) [#/Vol] 4.25 10*6/uL Normal 3.90-5.20 [facility] Manager [employer] Comment on above: Performed By: #### L IPD, CMP, CBCAD #### [facility] [address], [place] [id number] RDW-SD 44.0 fL Normal 37.0-50.0 [facility] Specialist Comment on above: Performed By: #### L IPD, CMP, CBCAD #### [facility] [address], [place] [id number] WBC (Bld) [#/Vol] 8.4 10*3/uL Normal 3.8-11.0 Bran [facility] Manager [employer] Comment on above: Performed By: #### L IPD, CMP, CBCAD #### [facility] [address], [place] [id number] Comprehensive Metabolic Pane evelyn 01-21-2022 Albumin [Mass/Vol] 5.2 g/dL High 3.6-5.1 [facility] Comment on above: Performed By: #### L IPD, CMP, CBCAD #### [facility] [address], [place] [id number] Albumin/Globulin [Mass ratio] 2.4 {ratio} Normal 1.0-2.5 [facility] Comment on above: Performed By: #### L IPD, CMP, CBCAD #### [facility] [address], [place] [id number] ALP [Catalytic activity/Vol] 77 U/L Normal 35-119 [facility] Comment on above: Performed By: #### L IPD, CMP, CBCAD #### [facility] [address], [place] [id number] ALT [Catalytic activity/Vol] 33 U/L Normal 6-33 [facility] Comment on above: Result Comment: 10/29 Female reference range changed. Performed By: #### L IPD, CMP, CBCAD #### [facility] [address], [place] [id number] Anion gap [Moles/Vol] 19 mmol/L Normal 12-20 [facility] Comment on above: Result Comment: Effe ctive 12/04/2019 reference range changed. Performed By: #### L IPD, CMP, CBCAD #### [facility] [address], [place] [id number] AST [Catalytic activity/Vol] 28 U/L Normal 9-34 [facility] Comment on above: Performed By: #### L IPD, CMP, CBCAD #### [facility] [address], [place] [id number] Bilirubin [Mass/Vol] 0.45 mg/dL Normal 0.30-1.20 [facility] Comment on above: Performed By: #### L IPD, CMP, CBCAD #### [facility] [address], [place] [id number] BUN/CREA 22 Ratio Normal 6-22 [facility] Comment on above: Performed By: #### L IPD, CMP, CBCAD #### [facility] [address], [place] [id number] Calcium [Mass/Vol] 10.3 mg/dL High 8.6-10.2 Bran [facility] [employer] Comment on above: Performed By: #### L IPD, CMP, CBCAD #### [facility] [address], [place] [id number] Chloride [Moles/Vol] 96 mmol/L Low 98-107 [facility] Comment on above: Performed By: #### L IPD, CMP, CBCAD #### [facility] [address], [place] [id number] CO2 [Moles/Vol] 26 mmol/L Normal 20-31 [facility] Comment on above: Performed By: #### L IPD, CMP, CBCAD #### [facility] [address], [place] [id number] Creatinine [Mass/Vol] 1.0 mg/dL Normal 0.6-1.4 [facility] Comment on above: Performed By: #### L IPD, CMP, CBCAD #### [facility] [address], [place] [id number] eGFRAA 70 mL/min/1.73m2 Normal >60 [facility] Comment on above: Performed By: #### L IPD, CMP, CBCAD #### [facility] [address], [place] [id number] eGFRNAA 58 mL/min/1.73m2 Low >60 [facility] Comment on above: Performed By: #### L IPD, CMP, CBCAD #### [facility] [address], [place] [id number] Globulin (S) [Mass/Vol] 2.2 g/dL Normal 1.9-3.7 [facility] Comment on above: Performed By: #### L IPD, CMP, CBCAD #### [facility] [address], [place] [id number] Glucose [Mass/Vol] 90 mg/dL Normal 65-99 Bran rizzo [place] [employer] Comment on above: Result Comment: For FASTING Glucose --- ADA reference ranges: Normal 65-99 mg/dl Prediabetes 100-125 Diabetes >/= 126 Performed By: #### L IPD, CMP, CBCAD #### [facility] [address], [place] [id number] Potassium [Moles/Vol] 4.5 mmol/L Normal 3.5-5.5 [facility] Specialist Comment on above: Performed By: #### L IPD, CMP, CBCAD #### [facility] [address], [place] [id number] Protein [Mass/Vol] 7.4 g/dL Normal 6.1-8.1 Bran rizzo [place] Manager [employer] Comment on above: Performed By: #### L IPD, CMP, CBCAD #### [facility] [address], [place] [id number] Sodium [Moles/Vol] 137 mmol/L Normal 135-146 Bran rizzo [place] Manager [employer] Comment on above: Performed By: #### L IPD, CMP, CBCAD #### [facility] [address], [place] [id number] Urea nitrogen [Mass/Vol] 22 mg/dL Normal 7-25 [facility] Manager [employer] Comment on above: Performed By: #### L IPD, CMP, CBCAD #### [facility] [address], [place] [id number] Lipid Panelon 01-21-2022 Cholesterol [Mass/Vol] 238 mg/dL High 125-200 No [facility] Specialist Comment on above: Result Comment: Low risk < 200mg/dL Borderline risk 201-239 mg/dl High risk > or equal to 240 Performed By: #### L IPD, CMP, CBCAD #### [facility] [address], [place] [id number] Cholesterol in HDL [Mass/Vol] 63 mg/dL Normal >40 [facility] Manager [employer] Comment on above: Result Comment: High Cardiovascular Risk HDL <40 mg/dL Low Cardiovascular Risk HDL > or equal to 60 mg/dl Performed By: #### L IPD, CMP, CBCAD #### [facility] [address], [place] [id number] Cholesterol in LDL [Mass/Vol] 147 mg/dL Normal [facility] Manager [employer] Comment on above: Result Comment: LDL ATP III CLASSIFICATION LDL less than 100 mg/dl Optimal LDL 100-129 mg/dl Near or above optimal LDL 130-159 Borderline high LDL 160-189 High LDL greater than 189 mg/dl Very High Performed By: #### L IPD, CMP, CBCAD #### [facility] [address], [place] [id number] Cholesterol in VLDL [Mass/Vol] 28 mg/dL Normal [facility] Specialist Comment on above: Performed By: #### L IPD, CMP, CBCAD #### [facility] [address], [place] [id number] Cholesterol.total/Chol esterol in HDL [Mass ratio] 4 {ratio} Normal [facility] Specialist Comment on above: Performed By: #### L IPD, CMP, CBCAD #### [facility] [address], [place] [id number] Triglyceride [Mass/Vol] 139 mg/dL Normal 30-150 [facility] Manager [employer] Comment on above: Result Comment: TRIG ATPIII CLASSIFICATIONS TRIG less than 150 mg/dl Normal TRIG 150-199 mg/dl Borderline High TRIG 200-500 mg/dl High TRIG greather than 500 mg/dl Very High Performed By: #### L IPD, CMP, CBCAD #### [facility] [address], [place] [id number] Vitamin B12on 01-21-2022 Cobalamin (Vitamin B12) [Mass/Vol] 317 pg/mL Normal 211-946 [facility] Manager [employer] Comment on above: Performed By: #### L GLORIA CMP, CBCAD #### [facility] [address], [place] [id number] Complete Blood Counton 12-04 Erythrocyte distribution width (RBC) [Ratio] 12.9 % Normal 11.0-15.0 [facility] Specialist Comment on above: Performed By: #### M G, RAZA, URIC, VITD, CBC #### [facility] [address], [place] [id number] Hematocrit (Bld) [Volume fraction] 39.8 % Normal 35.0-47.0 [facility] Specialist Comment on above: Performed By: #### M G, RAZA, URIC, VITD, CBC #### [facility] [address], [place] [id number] Hemoglobin (Bld) [Mass/Vol] 12.9 g/dL Normal 11.6-15.5 [facility] Specialist Comment on above: Performed By: #### M G, RAZA, URIC, VITD, CBC #### [facility] [address], [place] [id number] MCH (RBC) [Entitic mass] 29.6 pg Normal 27.0-33.0 [facility] Specialist Comment on above: Performed By: #### M G, RAZA, URIC, VITD, CBC #### [facility] [address], [place] [id number] MCHC (RBC) [Mass/Vol] 32.4 g/dL Normal 32.0-36.0 [facility] Comment on above: Performed By: #### M G, RAZA, URIC, VITD, CBC #### [facility] [address], [place] [id number] MCV (RBC) [Entitic vol] 91 fL Normal 80-100 [facility] Specialist Comment on above: Performed By: #### M G, RAZA, URIC, VITD, CBC #### [facility] [address], [place] [id number] Platelet mean volume (Bld) [Entitic vol] 9.60 fL Normal 7.50-12.50 [facility] Comment on above: Performed By: #### M G, RAZA, URIC, VITD, CBC #### [facility] [address], [place] [id number] Platelets (Bld) [#/Vol] 349 10*3/uL Normal 140-400 [facility] Specialist Comment on above: Performed By: #### M G, RAZA, URIC, VITD, CBC #### [facility] [address], [place] [id number] RBC (Bld) [#/Vol] 4.36 10*6/uL Normal 3.90-5.20 [facility] Specialist Comment on above: Performed By: #### M G, RAZA, URIC, VITD, CBC #### [facility] [address], [place] [id number] RDW-SD 42.7 fL Normal 37.0-50.0 [facility] Specialist Comment on above: Performed By: #### M G, RAZA, URIC, VITD, CBC #### [facility] [address], [place] [id number] WBC (Bld) [#/Vol] 8.0 10*3/uL Normal 3.8-11.0 Bran [facility] Manager [employer] Comment on above: Performed By: #### M G, RAZA, URIC, VITD, CBC #### [facility] [address], [place] [id number] Magnesiumon 12-04-2021 Magnesium [Mass/Vol] 2.1 mg/dL Normal 1.5-2.3 [facility] Specialist Comment on above: Performed By: #### L IPD, CMP, CBCAD #### [facility] [address], [place] [id number] Renal Function Panelon 12-04 Albumin [Mass/Vol] 5.0 g/dL Normal 3.6-5.1 [facility] Specialist Comment on above: Performed By: #### L IPD, CMP, CBCAD #### [facility] [address], [place] [id number] Anion gap [Moles/Vol] 22 mmol/L High 12-20 [facility] Specialist Comment on above: Result Comment: Effe ctive 12/04/2019 reference range changed. Performed By: #### L IPD, CMP, CBCAD #### [facility] [address], [place] [id number] Calcium [Mass/Vol] 10.2 mg/dL Normal 8.6-10.2 [facility] Manager [employer] Comment on above: Performed By: #### L IPD, CMP, CBCAD #### [facility] [address], [place] [id number] Chloride [Moles/Vol] 98 mmol/L Normal 98-107 [facility] Specialist Comment on above: Performed By: #### L IPD, CMP, CBCAD #### [facility] [address], [place] [id number] CO2 [Moles/Vol] 22 mmol/L Normal 20-31 [facility] Comment on above: Performed By: #### L IPD, CMP, CBCAD #### [facility] [address], [place] [id number] Creatinine [Mass/Vol] 0.9 mg/dL Normal 0.6-1.4 [facility] Comment on above: Performed By: #### L IPD, CMP, CBCAD #### [facility] [address], [place] [id number] eGFRAA 75 mL/min/1.73m2 Normal >60 [facility] Specialist Comment on above: Performed By: #### L IPD, CMP, CBCAD #### [facility] [address], [place] [id number] eGFRNAA 62 mL/min/1.73m2 Normal >60 [facility] Specialist Comment on above: Performed By: #### L IPD CMP, CBCAD #### [facility] [address], [place] [id number] Glucose [Mass/Vol] 107 mg/dL High 65-99 [facility] Manager [employer] Comment on above: Result Comment: For FASTING Glucose --- ADA reference ranges: Normal 65-99 mg/dl Prediabetes 100-125 Diabetes >/= 126 Performed By: #### L IPD, CMP, CBCAD #### [facility] [address], [place] [id number] Phosphate [Mass/Vol] 4.2 mg/dL Normal 2.2-4.4 [facility] Comment on above: Performed By: #### L IPD, CMP, CBCAD #### [facility] [address], [place] [id number] Potassium [Moles/Vol] 3.7 mmol/L Normal 3.5-5.5 [facility] Comment on above: Performed By: #### L IPD, CMP, CBCAD #### [facility] [address], [place] [id number] Sodium [Moles/Vol] 138 mmol/L Normal 135-146 [facility] Manager [employer] Comment on above: Performed By: #### L IPD, CMP, CBCAD #### [facility] [address], [place] [id number] Urea nitrogen [Mass/Vol] 19 mg/dL Normal 7-25 [facility] Specialist Comment on above: Performed By: #### L IPD, CMP, CBCAD #### [facility] [address], [place] [id number] Uric Acidon 12-04-2021 URIC 6.3 mg/dL Normal 2.5-7.0 [facility] Manager Books Comment on above: Result Comment: Refe shea range change 10/15/2017. Prior reference range F 2.4-5.7mg/dL. M 3.4-7.0 mg/dL. Performed By: #### M G, RAZA, URIC, VITD, CBC #### [facility] [address], [place] [id number] Vitamin D 25-OHon 12-04-2021 VIT D 25 OH 26 ng/ml Low >29 [facility] Manager [employer] Comment on above: Result Comment: Alesia min D Status Deficiency <20 ng/mL Insufficiency 20-29 ng/mL Optimal 30-100 ng/mL Possible Toxicity >=150 ng/mL Performed By: #### M G, RAZA, URIC, VITD, CBC #### [facility] [address], [place] [id number] CBC (INCLUDES DIFF/PLT)on Basophils (Bld) [#/Vol] 0.06 10*3/uL Normal 0-200 [facility] Comment on above: Performed By: #### 1 0231, 6399 #### [facility] [address] [place] [address] [employer]: Evan Lucero MD Basophils/100 WBC (Bld) 0.9 % Normal [facility] Comment on above: Performed By: #### 1 0231, 6399 #### [facility] , [address] [place], [place] [id number] [employer]: Evan Lucero MD Eosinophils (Bld) [#/Vol] 0.295 10*3/uL Normal 15-500 [facility] Comment on above: Performed By: #### 1 0231, 6399 #### [facility] [address] , [address] [place] [phone] [employer]: Evan Lucero MD Eosinophils/100 WBC (Bld) 4.4 % Normal [facility] Comment on above: Performed By: #### 1 0231, 6399 #### [facility] [address], [address] [place] [address] [employer]: Evan Lucero MD Erythrocyte distribution width (RBC) [Ratio] 13.5 % Normal 11.0-15.0 [facility] Comment on above: Performed By: #### 1 0231, 6399 #### [facility] [address], [address] [place] [address] [employer]ter: Evan Lucero MD Hematocrit (Bld) [Volume fraction] 37.5 % Normal 35.0-45.0 [facility] Comment on above: Performed By: #### 1 0231, 6399 #### [facility] [address], [address] [place] [address] [employer]: Evan Lucero MD Hemoglobin (Bld) [Mass/Vol] 12.6 g/dL Normal 11.7-15.5 [facility] Comment on above: Performed By: #### 1 0231, 6399 #### [facility] [address], [address] [place] [address] [employer]: Evan Lucero MD Lymphocytes (Bld) [#/Vol] 2.861 10*3/uL Normal 850-3900 [facility] Comment on above: Performed By: #### 1 0231, 6399 #### [facility] [address], [address] [place] [address] [employer]: Evan Lucero MD Lymphocytes/100 WBC (Bld) 42.7 % Normal [facility] Comment on above: Performed By: #### 1 0231, 6399 #### [facility] [address], [address] [place] [address] [employer]: Evan Lucero MD MCH (RBC) [Entitic mass] 29.1 pg Normal 27.0-33.0 [facility] Comment on above: Performed By: #### 1 0231, 6399 #### [facility] [address], [address] [place] [address] [employer]: Evan Lucero MD MCHC (RBC) [Mass/Vol] 33.6 g/dL Normal 32.0-36.[address] [facility] Comment on above: Performed By: #### 1 0231, 6399 #### [facility] [address] , [address] [place] [address] [employer]: Evan Lucero MD MCV (RBC) [Entitic vol] 86.6 fL Normal 80.0-100.0 [facility] Comment on above: Performed By: #### 1 1, 6399 #### [facility] [address] , [address] [place] [address] [employer]: Evan Lucero MD Monocytes (Bld) [#/Vol] 0.583 10*3/uL Normal 200-950 [facility] Comment on above: Performed By: #### 1 230, 6399 #### [facility] [address] , [address] [place] [address] [employer]: Evan Lucero MD Monocytes/100 WBC (Bld) 8.7 % Normal [facility] Comment on above: Performed By: #### 1 230, 6399 #### [facility] [address] , [address] [place] [address] [employer]: Evan Lucero MD Neutrophils (Bld) [#/Vol] 2.901 10*3/uL Normal 8441-6354 [facility] Comment on above: Performed By: #### 1 1, 6399 #### [facility] [address] , [address] [place] [address] [employer]: Evan Lucero MD Neutrophils/100 WBC (Bld) 43.3 % Normal [facility] Comment on above: Performed By: #### 1 0231, 6399 #### [facility] [address] , [address] [place] [address] [employer]: Evan Lucero MD Platelet mean volume (Bld) [Entitic vol] 9.2 fL Normal 7.5-12.5 [facility] Comment on above: Performed By: #### 1 023, 6399 #### [facility] [address], [address] [place] [address] [employer]: Evan Lucero MD Platelets (Bld) [#/Vol] 343 10*3/uL Normal 140-400 [facility] Comment on above: Performed By: #### 1 0231, 6399 #### [facility] [address], [address] [place] [address] [employer]: Evan Lucero MD RBC (Bld) [#/Vol] 4.33 10*6/uL Normal 3.80-5.10 [facility] Comment on above: Performed By: #### 1 0231, 6399 #### [facility] [address], [address] [place] [address] [employer]: Evan Lucero MD WBC (Bld) [#/Vol] 6.7 10*3/uL Normal 3.8-10.8 [facility] Comment on above: Performed By: #### 1 0231, 6399 #### [facility] [address], [address] [place] [address] [employer]: Evan Lucero MD COMPREHENSIVE METABOLIC PANE [facility] 2020 Albumin [Mass/Vol] 4.1 g/dL Normal 3.6-5.1 [facility] Comment on above: Order Comment: FASTI NG:NO FASTING: NO Performed By: #### 1 0231, 6399 #### [facility] [address] , [address] [place] [address] [employer]: Evan Lucero MD Albumin/Globulin [Mass ratio] 1.6 (calc) Normal 1.0-2.5 [facility] Comment on above: Order Comment: FASTI NG:NO FASTING: NO Performed By: #### 1 0231, 6399 #### [facility] [address], [address] [place] [address] [employer]: Evan Lucero MD ALP [Catalytic activity/Vol] 67 U/L Normal 37-153 [facility] Comment on above: Order Comment: FASTI NG:NO FASTING: NO Performed By: #### 1 0231, 6399 #### [facility] [address] , [address] [place] [address] [employer]: Evan Lucero MD ALT [Catalytic activity/Vol] 33 U/L High 6-29 [facility] Comment on above: Order Comment: FASTI NG:NO FASTING: NO Performed By: #### 1 0231, 6399 #### [facility] , [address] [place] [address] [employer]: Evan Lucero MD AST [Catalytic activity/Vol] 29 U/L Normal 10-35 [facility] Comment on above: Order Comment: FASTI NG:NO FASTING: NO Performed By: #### 1 1, 6399 #### [facility], [address] [place] [address] [employer]: Evan Lucero MD Bilirubin [Mass/Vol] 0.4 mg/dL Normal 0.2-1.2 [facility] Comment on above: Order Comment: FASTI NG:NO FASTING: NO Performed By: #### 1 023, 6399 #### [facility] , [address] [place] [address] [employer]: Evan Lucero MD Calcium [Mass/Vol] 9.1 mg/dL Normal 8.6-10.4 [facility] Comment on above: Order Comment: FASTI NG:NO FASTING: NO Performed By: #### 1 230, 6399 #### [facility], [address] [place] [address] [employer]: Evan Lucero MD Chloride [Moles/Vol] 108 mmol/L Normal 98-110 [facility] Comment on above: Order Comment: FASTI NG:NO FASTING: NO Performed By: #### 1 0231, 6399 #### [facility] [address] , [address] [place] [address] [employer]: Evan Lucero MD CO2 [Moles/Vol] 28 mmol/L Normal 20-32 [facility] Comment on above: Order Comment: FASTI NG:NO FASTING: NO Performed By: #### 1 0231, 6399 #### [facility], [address] [place] [address] [employer]: Evan Lucero MD Creatinine [Mass/Vol] 0.80 mg/dL Normal 0.50-1.05 [facility] Comment on above: Order Comment: FASTI NG:NO FASTING: NO Result Comment: For patients >49 years of age, the reference limit for Creatinine is approximately 13% higher for people identified as -Dominican. Performed By: #### 1 0231, 6399 #### [facility]-[address], [address] [place] [address] [employer]: Evan Lucero MD eGFR NON-AFR. JORDANIAN 85 mL/min/1.73m2 Normal > OR = 60 [facility] Comment on above: Order Comment: FASTI NG:NO FASTING: NO Performed By: #### 1 230, 6399 #### [facility], [address] [place] [address] [employer]ter: Evan Lucero MD GFR/1.73 sq M predicted among blacks MDRD (S/P/Bld) [Vol rate/Area] 98 mL/min/{1.73_m2} Normal > OR = 60 [facility] Comment on above: Order Comment: FASTI NG:NO FASTING: NO Performed By: #### 1 023, 6399 #### [facility], [address] [place] [address] [employer]: Evan Lucero MD Globulin (S) [Mass/Vol] 2.5 g/dL (calc) Normal 1.9-3.7 [facility] Comment on above: Order Comment: FASTI NG:NO FASTING: NO Performed By: #### 1 0231, 6399 #### [facility], [address] [place] [address] [employer]: Evan Lucero MD Glucose [Mass/Vol] 99 mg/dL Normal 65-139 [facility] Comment on above: Order Comment: FASTI NG:NO FASTING: NO Result Comment: Non-fasting reference interval Performed By: #### 1 0231, 6399 #### [facility], [address] [place] [address] [employer]ter: Evan Lucero MD Potassium [Moles/Vol] 4.0 mmol/L Normal 3.5-5.3 [facility] Comment on above: Order Comment: FASTI NG:NO FASTING: NO Performed By: #### 1 0231, 6399 #### [facility], [address] [place] [address] [employer]ter: Evan Lucero MD Protein [Mass/Vol] 6.6 g/dL Normal 6.1-8.1 [facility] [employer] Comment on above: Order Comment: FASTI NG:NO FASTING: NO Performed By: #### 1 0231, 6399 #### [facility], [address] [place] [address] [employer]ter: Evan Lucero MD Sodium [Moles/Vol] 142 mmol/L Normal 135-146 [facility] Comment on above: Order Comment: FASTI NG:NO FASTING: NO Performed By: #### 1 0231, 6399 #### [facility], [address] [place] [address] [employer]: Evan Lucero MD Urea nitrogen [Mass/Vol] 10 mg/dL Normal 7-25 [facility] Comment on above: Order Comment: FASTI NG:NO FASTING: NO Performed By: #### 1 0231, 6399 #### [facility], [address] [place] [address] Bumper And Painter: Evan Lucero MD Urea nitrogen/Creatinine [Mass ratio] NOT APPLICABLE Normal 6- [facility] Comment on above: Order Comment: FASTI NG:NO FASTING: NO Performed By: #### [id number] #### [facility], [address] [place] [address] Bumper And Painter: Evan Lucero MD Vital Signs Date Time Vital Sign Value Performing Clinician Facility 07-16-2025 12:16-0400 Body height 165.1 cm Roverto Plasencia Work Phone: [facility] 07-16-2025 12:16-0400 Body mass index (BMI) [Ratio] 29.95 kg/m2 Roverto Plasencia [employer] FACULT[employer] MEMBER Work Phone: [facility] 07-16-2025 12:16-0400 Body weight 81.65 kg Roverto Plasencia [employer] FACULTY MEMBER Work Phone: [facility] 07-16-2025 12:16-0400 Diastolic blood pressure 82 mm[Hg] Roverto Plasencia [employer] FACULTY MEMBER Work Phone: [facility] 07-16-2025 12:16-0400 Systolic blood pressure 120 mm[Hg] Roverto Plasencia [employer] FACULTY MEMBER Work Phone: [facility] 07-10-2025 09:44-0400 Body height 165.1 cm Julio C Jarrett MD Work Phone: [facility] 07-10-2025 09:44-0400 Body mass index (BMI) [Ratio] 31.62 kg/m2 Julio C Jarrett MD Work Phone: [facility] 07-10-2025 09:44-0400 Body weight 86.18 kg Julio C Jarrett MD Work Phone: [facility] 07-10-2025 09:44-0400 Diastolic blood pressure 70 mm[Hg] Julio C Jarrett MD Work Phone: [facility] 07-10-2025 09:44-0400 Heart rate 88 /min Julio C Jarrett MD Work Phone: [facility] 07-10-2025 09:44-0400 SaO2% (BldA) [Mass fraction] 97 % Julio C Jarrett MD Work Phone: [facility] 07-10-2025 09:44-0400 Systolic blood pressure 108 mm[Hg] Julio C Jarrett MD Work Phone: [facility] 07-02-2025 09:16-0400 Body mass index (BMI) [Ratio] 31.62 kg/m2 Roshan Arriaga MD Work Phone: [facility] 07-02-2025 09:16-0400 Body weight 86.18 kg Roshan Arriaga MD Work Phone: [facility] 06-26-2025 14:39-0400 Body height 165.1 cm Summer Workman PA Work Phone: [facility] 06-26-2025 14:39-0400 Body mass index (BMI) [Ratio] 31.12 kg/m2 Summer Workman PA Work Phone: [facility] 06-26-2025 14:39-0400 Body weight 84.82 kg Summer Workman PA Work Phone: [facility] 06-26-2025 14:39-0400 Diastolic blood pressure 80 mm[Hg] Summer Workman PA Work Phone: [facility] 06-26-2025 14:39-0400 Systolic blood pressure 110 mm[Hg] Summer Workman PA Work Phone: [facility] 06-25-2025 09:46-0400 Body mass index (BMI) [Ratio] 31.12 kg/m2 Roverto Gillian-Nossek CAREER LAW CLERK-PHOTOGRAPHIC EQUIPMENT MECHANIC Work Phone: [facility] 06-25-2025 09:46-0400 Body weight 84.82 kg Roverto Gillian-Nossek CAREER LAW CLERK-PHOTOGRAPHIC EQUIPMENT MECHANIC Work Phone: [facility] 06-25-2025 09:46-0400 Diastolic blood pressure 68 mm[Hg] Roverto Gillian-Nossek CAREER LAW CLERK-PHOTOGRAPHIC EQUIPMENT MECHANIC Work Phone: [facility] 06-25-2025 09:46-0400 Heart rate 61 /min Roverto Gillian-Nossek CAREER LAW CLERK-PHOTOGRAPHIC EQUIPMENT MECHANIC Work Phone: [facility] 06-25-2025 09:46-0400 Systolic blood pressure 116 mm[Hg] Roverto Gillian-Nossek CAREER LAW CLERK-PHOTOGRAPHIC EQUIPMENT MECHANIC Work Phone: [facility] 06-24-2025 19:00-0400 Diastolic blood pressure 83 mm[Hg] Julio C Jarrett MD Work Phone: [facility] 06-24-2025 19:00-0400 Heart rate 81 /min Julio C Jarrett MD Work Phone: [facility] 06-24-2025 19:00-0400 Respiratory rate 18 /min Julio C Jarrett MD Work Phone: [facility] 06-24-2025 19:00-0400 SaO2% (BldA) [Mass fraction] 96 % Julio C Jarrett MD Work Phone: [facility] 06-24-2025 19:00-0400 Systolic blood pressure 146 mm[Hg] Juli oC Jarrett MD Work Phone: [facility] 06-24-2025 17:25-0400 Body height 166.37 cm Julio C Jarrett MD Work Phone: [facility] 06-24-2025 17:25-0400 Body temperature 98.1 [degF] Julio C Jarrett MD Work Phone: [facility] 06-24-2025 17:25-0400 Body weight 86 kg Julio C Jarrett MD Work Phone: [facility] 06-05-2025 15:16-0400 Body mass index (BMI) [Ratio] 31.95 kg/m2 Summer Workman PA Work Phone: [facility] 06-05-2025 15:16-0400 Body weight 87.09 kg Summer Workman PA Work Phone: [facility] 06-05-2025 15:16-0400 Diastolic blood pressure 70 mm[Hg] Summer Workman PA Work Phone: [facility] 06-05-2025 15:16-0400 Heart rate 80 /min Summer Workman PA Work Phone: [facility] 06-05-2025 15:16-0400 SaO2% (BldA) [Mass fraction] 95 % Summer Workman PA Work Phone: [facility] 06-05-2025 15:16-0400 Systolic blood pressure 102 mm[Hg] Summer Workman PA Work Phone: [facility] 05-21-2025 12:15-0400 Body height 165.1 cm Roverto Parkergel [employer] FACULTY MEMBER Work Phone: [facility] 05-21-2025 12:15-0400 Body mass index (BMI) [Ratio] 32.05 kg/m2 Roverto Yadiranagel [employer] RES[employer] FACULTY MEMBER Work Phone: [facility] 05-21-2025 12:15-0400 Body weight 87.36 kg Roverto Yadiranagel NAT[employer] RESOURCES FACULTY MEMBER Work Phone: [facility] 05-21-2025 12:15-0400 Diastolic blood pressure 60 mm[Hg] Roverto Yadiranagel NATURAL RESOURCES FACULTY MEMBER Work Phone: [facility] 05-21-2025 12:15-0400 Systolic blood pressure 110 mm[Hg] Roverto Yadiranagel NATURAL RESOURCES FACULTY MEMBER Work Phone: [facility] 05-01-2025 14:50-0400 Body mass index (BMI) [Ratio] 33.13 kg/m2 Roverto Gillian-Nossek CAREER LAW CLERK-PHOTOGRAPHIC EQUIPMENT MECHANIC Work Phone: [facility] 05-01-2025 14:50-0400 Body weight 87.54 kg Roverto Gillian-Nossek CAREER LAW CLERK-PHOTOGRAPHIC EQUIPMENT MECHANIC Work Phone: [facility] 05-01-2025 14:50-0400 Diastolic blood pressure 68 mm[Hg] Roverto Gillian-Nossek CAREER LAW CLERK-PHOTOGRAPHIC EQUIPMENT MECHANIC Work Phone: [facility] 05-01-2025 14:50-0400 Heart rate 89 /min Roverto Gillian-Nossek CAREER LAW CLERK-PHOTOGRAPHIC EQUIPMENT MECHANIC Work Phone: [facility] 05-01-2025 14:50-0400 Systolic blood pressure 110 mm[Hg] Roverto Gillian-Nossek CAREER LAW CLERK-PHOTOGRAPHIC EQUIPMENT MECHANIC Work Phone: [facility] 04-04-2025 15:01-0400 Diastolic blood pressure 96 mm[Hg] Jacquie Yip [employer] FACULTY MEMBER Work Phone: [facility] 04-04-2025 15:01-0400 Heart rate 88 /min Jacquie Didion NATURAL RESOURCES FACULTY MEMBER Work Phone: [facility] 04-04-2025 15:01-0400 Respiratory rate 16 /min Jacquie Yip [employer] RESOURCES FACULTY MEMBER Work Phone: [facility] 04-04-2025 15:01-0400 SaO2% (BldA) [Mass fraction] 98 % Jacquie Yip [employer] RES[employer] FACULTY MEMBER Work Phone: [facility] 04-04-2025 15:01-0400 Systolic blood pressure 131 mm[Hg] Jacquie Yip [employer] RES[employer] FACULTY MEMBER Work Phone: [facility] 03-12-2025 13:49-0400 Body mass index (BMI) [Ratio] 34.5 kg/m2 Roverto Gillian-Nossek CAREER LAW CLERK-PHOTOGRAPHIC EQUIPMENT MECHANIC Work Phone: [facility] 03-12-2025 13:49-0400 Body weight 91.17 kg Roverto Gillian-Nossek CAREER LAW CLERK-PHOTOGRAPHIC EQUIPMENT MECHANIC Work Phone: [facility] 03-12-2025 13:49-0400 Diastolic blood pressure 78 mm[Hg] Roverto Gillian-Nossek CAREER LAW CLERK-PHOTOGRAPHIC EQUIPMENT MECHANIC Work Phone: [facility] 03-12-2025 13:49-0400 Heart rate 100 /min Roverto Gillian-Nossek CAREER LAW CLERK-PHOTOGRAPHIC EQUIPMENT MECHANIC Work Phone: [facility] 03-12-2025 13:49-0400 Systolic blood pressure 118 mm[Hg] Roverto Gillian-Nossek CAREER LAW CLERK-PHOTOGRAPHIC EQUIPMENT MECHANIC Work Phone: [facility] 02-23-2025 09:05-0400 Body height 162.6 cm Rhiannon Risaliti NAT[employer] RES[employer] FACULTY MEMBER Work Phone: [facility] 02-23-2025 09:05-0400 Body mass index (BMI) [Ratio] 34.67 kg/m2 Rhiannon Risaliti NAT[employer] RESOURCES FACULTY MEMBER Work Phone: [facility] 02-23-2025 09:05-0400 Body weight 91.63 kg Rhiannon Risaliti NATURAL RESOURCES FACULTY MEMBER Work Phone: [facility] 02-23-2025 09:05-0400 Diastolic blood pressure 82 mm[Hg] Rhiannon Risaliti NATURAL RESOURCES FACULTY MEMBER Work Phone: [facility] 02-23-2025 09:05-0400 Heart rate 64 /min Rhiannon Risaliti NATURAL RESOURCES FACULTY MEMBER Work Phone: [facility] 02-23-2025 09:05-0400 SaO2% (BldA) [Mass fraction] 99 % Rhiannon Risaliti NATURAL RESOURCES FACULTY MEMBER Work Phone: [facility] 02-23-2025 09:05-0400 Systolic blood pressure 128 mm[Hg] Rhiannon Risaliti NATURAL RESOURCES FACULTY MEMBER Work Phone: [facility] 01-18-2025 13:26-0500 Body mass index (BMI) [Ratio] 35.36 kg/m2 Roverto Gillian-Nossek CAREER LAW CLERK-PHOTOGRAPHIC EQUIPMENT MECHANIC Work Phone: [facility] 01-18-2025 13:26-0500 Body weight 93.44 kg Roverto Gillian-Nossek CAREER LAW CLERK-PHOTOGRAPHIC EQUIPMENT MECHANIC Work Phone: [facility] 01-18-2025 13:26-0500 Diastolic blood pressure 76 mm[Hg] Roverto Gillian-Nossek CAREER LAW CLERK-PHOTOGRAPHIC EQUIPMENT MECHANIC Work Phone: [facility] 01-18-2025 13:26-0500 Heart rate 69 /min Roverto Gillian-Nossek CAREER LAW CLERK-PHOTOGRAPHIC EQUIPMENT MECHANIC Work Phone: [facility] 01-18-2025 13:26-0500 Systolic blood pressure 122 mm[Hg] Roverto Gillian-Nossek CAREER LAW CLERK-PHOTOGRAPHIC EQUIPMENT MECHANIC Work Phone: [facility] 01-02-2025 08:47-0500 Body height 162.6 cm Rhiannon Risaliti NAT[employer] RESOURCES FACULTY MEMBER Work Phone: [facility] 01-02-2025 08:47-0500 Body mass index (BMI) [Ratio] 36.05 kg/m2 Rhiannon Risaliti NAT[employer] RESOURCES FACULTY MEMBER Work Phone: [facility] 01-02-2025 08:47-0500 Body weight 95.25 kg Rhiannon Risaliti NATURAL RESOURCES FACULTY MEMBER Work Phone: [facility] 01-02-2025 08:47-0500 Diastolic blood pressure 78 mm[Hg] Rhiannon Risaliti NATURAL RESOURCES FACULTY MEMBER Work Phone: [facility] 01-02-2025 08:47-0500 Heart rate 78 /min Rhiannon Risaliti NATURAL RESOURCES FACULTY MEMBER Work Phone: [facility] 01-02-2025 08:47-0500 SaO2% (BldA) [Mass fraction] 98 % Rhiannon Risaliti NATURAL RESOURCES FACULTY MEMBER Work Phone: [facility] 01-02-2025 08:47-0500 Systolic blood pressure 126 mm[Hg] Rhiannon Risaliti NATURAL RESOURCES FACULTY MEMBER Work Phone: [facility] 12-21-2024 14:38-0500 Body mass index (BMI) [Ratio] 36.05 kg/m2 Roverto Gillian-Nossek CAREER LAW CLERK-PHOTOGRAPHIC EQUIPMENT MECHANIC Work Phone: [facility] 12-21-2024 14:38-0500 Body weight 95.25 kg Roverto Gillian-Nossek CAREER LAW CLERK-PHOTOGRAPHIC EQUIPMENT MECHANIC Work Phone: [facility] 12-21-2024 14:38-0500 Diastolic blood pressure 84 mm[Hg] Roverto Gillian-Nossek CAREER LAW CLERK-PHOTOGRAPHIC EQUIPMENT MECHANIC Work Phone: [facility] 12-21-2024 14:38-0500 Heart rate 91 /min Roverto Gillian-Nossek CAREER LAW CLERK-PHOTOGRAPHIC EQUIPMENT MECHANIC Work Phone: [facility] 12-21-2024 14:38-0500 Systolic blood pressure 138 mm[Hg] Roverto Gillian-Nossek CAREER LAW CLERK-PHOTOGRAPHIC EQUIPMENT MECHANIC Work Phone: [facility] 12-13-2024 08:32-0500 Body mass index (BMI) [Ratio] 34.33 kg/m2 Roverto Gillian-Nossek CAREER LAW CLERK-PHOTOGRAPHIC EQUIPMENT MECHANIC Work Phone: [facility] 12-13-2024 08:32-0500 Body weight 90.72 kg Roverto Gillian-Nossek CAREER LAW CLERK-PHOTOGRAPHIC EQUIPMENT MECHANIC Work Phone: [facility] 12-13-2024 08:32-0500 Diastolic blood pressure 78 mm[Hg] Roverto Jacksonsebrady CAREER LAW CLERK-PHOTOGRAPHIC EQUIPMENT MECHANIC Work Phone: [facility] 12-13-2024 08:32-0500 Heart rate 70 /min Roverto Jacksonsebrady CAREER LAW CLERK-PHOTOGRAPHIC EQUIPMENT MECHANIC Work Phone: [facility] 12-13-2024 08:32-0500 Systolic blood pressure 126 mm[Hg] Roverto Jacksonsebrady CAREER LAW CLERK-PHOTOGRAPHIC EQUIPMENT MECHANIC Work Phone: [facility] 12-06-2024 14:00-0500 Body height 165.1 cm Julio C Jarrett MD Work Phone: [facility] 12-06-2024 14:00-0500 Body mass index (BMI) [Ratio] 34.9 kg/m2 Julio C Jarrett MD Work Phone: [facility] 12-06-2024 14:00-0500 Body weight 95.25 kg Julio C Jarrett MD Work Phone: [facility] 11-17-2024 08:14-0500 Body height 162.6 cm Rhiannon Risaliti [employer] FACULTY MEMBER Work Phone: [facility] 11-17-2024 08:14-0500 Body mass index (BMI) [Ratio] 35.53 kg/m2 Rhiannon Risaliti [employer] RES[employer] FACULTY MEMBER Work Phone: [facility] 11-17-2024 08:14-0500 Body weight 93.89 kg Rhiannon Risaliti NAT[employer] RESOURCES FACULTY MEMBER Work Phone: [facility] 11-17-2024 08:14-0500 Diastolic blood pressure 78 mm[Hg] Rhiannon Risaliti NATURAL RESOURCES FACULTY MEMBER Work Phone: [facility] 11-17-2024 08:14-0500 Heart rate 81 /min Rhiannon Risaliti NATURAL RESOURCES FACULTY MEMBER Work Phone: [facility] 11-17-2024 08:14-0500 SaO2% (BldA) [Mass fraction] 97 % Rhiannon Risaliti [employer] RESOURCES FACULTY MEMBER Work Phone: [facility] 11-17-2024 08:14-0500 Systolic blood pressure 122 mm[Hg] Rhiannon Zapienti NATURAL RESOURCES FACULTY MEMBER Work Phone: [facility] 09-15-2024 10:16-0400 Body temperature 97.2 [degF] Jacquie Didion NAT[employer] RESOURCES FACULTY MEMBER Work Phone: [facility] 09-15-2024 10:16-0400 Diastolic blood pressure 80 mm[Hg] Jacquie Didion NATURAL RESOURCES FACULTY MEMBER Work Phone: [facility] 09-15-2024 10:16-0400 Heart rate 69 /min Jacquie Didion NATURAL RESOURCES FACULTY MEMBER Work Phone: [facility] 09-15-2024 10:16-0400 SaO2% (BldA) [Mass fraction] 97 % Jacquie Didion NATURAL RESOURCES FACULTY MEMBER Work Phone: [facility] 09-15-2024 10:16-0400 Systolic blood pressure 124 mm[Hg] Jacquie Didion NATURAL RESOURCES FACULTY MEMBER Work Phone: [facility] 09-12-2024 08:56-0400 Body mass index (BMI) [Ratio] 35.53 kg/m2 Roverto Gillian-Nossek CAREER LAW CLERK-PHOTOGRAPHIC EQUIPMENT MECHANIC Work Phone: [facility] 09-12-2024 08:56-0400 Body weight 93.89 kg Roverto Gillian-Nossek CAREER LAW CLERK-PHOTOGRAPHIC EQUIPMENT MECHANIC Work Phone: [facility] 09-12-2024 08:56-0400 Diastolic blood pressure 82 mm[Hg] Roverto Gillian-Nossek CAREER LAW CLERK-PHOTOGRAPHIC EQUIPMENT MECHANIC Work Phone: [facility] 09-12-2024 08:56-0400 Heart rate 98 /min Roverto Gillian-Nossek CAREER LAW CLERK-PHOTOGRAPHIC EQUIPMENT MECHANIC Work Phone: [facility] 09-12-2024 08:56-0400 Systolic blood pressure 124 mm[Hg] Roverto Gillian-Nossek CAREER LAW CLERK-PHOTOGRAPHIC EQUIPMENT MECHANIC Work Phone: [facility] 04-30-2024 12:04-0400 Body height 165.1 cm MD Julio C Jarrett Work Phone: [facility] 04-30-2024 12:04-0400 Body mass index (BMI) [Ratio] 29.9 kg/m2 MD Julio C Jarrett Work Phone: [facility] 04-30-2024 12:04-0400 Body weight 81.64 kg MD Julio C Jarrett Work Phone: [facility] 04-30-2024 12:04-0400 Diastolic blood pressure 72 mm[Hg] MD Julio C Jarrett Work Phone: [facility] 04-30-2024 12:04-0400 Heart rate 79 /min MD Julio C Jarrett Work Phone: [facility] 04-30-2024 12:04-0400 SaO2% (BldA) [Mass fraction] 96 % MD Julio C Jarrett Work Phone: [facility] 04-30-2024 12:04-0400 Systolic blood pressure 105 mm[Hg] MD Julio C Jarrett Work Phone: [facility] 02-25-2024 13:05-0400 Diastolic blood pressure 71 mm[Hg] MD Julio C Jarrett Work Phone: [facility] 02-25-2024 13:05-0400 Heart rate 77 /min MD Julio C Jarrett Work Phone: [facility] 02-25-2024 13:05-0400 Respiratory rate 18 /min MD Julio C Jarrett Work Phone: [facility] 02-25-2024 13:05-0400 SaO2% (BldA) [Mass fraction] 95 % MD Julio C Jarrett Work Phone: [facility] 02-25-2024 13:05-0400 Systolic blood pressure 110 mm[Hg] MD Julio C Jarrett Work Phone: [facility] 02-25-2024 10:00-0400 Body height 165.1 cm MD Julio C Jarrett Work Phone: [facility] 02-25-2024 10:00-0400 Body temperature 98.5 [degF] MD Julio C Jarrett Work Phone: [facility] 02-25-2024 10:00-0400 Body weight 81.64 kg MD Julio C Jarrett Work Phone: [facility] 01-22-2024 16:00-0500 Body temperature 98.2 [degF] PHYSICIAN [facility] 01-22-2024 16:00-0500 Diastolic blood pressure 84 mm[Hg] PHYSICIAN NO [facility] 01-22-2024 16:00-0500 Heart rate 83 /min PHYSICIAN NO [facility] 01-22-2024 16:00-0500 Respiratory rate 18 /min PHYSICIAN [facility] 01-22-2024 16:00-0500 SaO2% (BldA) [Mass fraction] 95 % PHYSICIAN NO [facility] 01-22-2024 16:00-0500 Systolic blood pressure 146 mm[Hg] PHYSICIAN NO [facility] 01-22-2024 06:00-0500 Body weight 80.3 kg PHYSICIAN NO [facility] 01-21-2024 14:16-0500 Body height 165.1 cm PHYSICIAN NO [facility] 01-21-2024 12:15-0500 Diastolic blood pressure 77 mm[Hg] PHYSICIAN NO [facility] 01-21-2024 12:15-0500 Heart rate 68 /min PHYSICIAN NO [facility] 01-21-2024 12:15-0500 Respiratory rate 20 /min PHYSICIAN [facility] 01-21-2024 12:15-0500 SaO2% (BldA) [Mass fraction] 96 % PHYSICIAN NO [facility] 01-21-2024 12:15-0500 Systolic blood pressure 164 mm[Hg] PHYSICIAN NO [facility] 01-21-2024 12:06-0500 Body height 165.1 cm PHYSICIAN NO [facility] 01-21-2024 12:06-0500 Body weight 80 kg PHYSICIAN NO [facility] 01-21-2024 11:19-0500 Body temperature 98.2 [degF] PHYSICIAN [facility] 07-22-2022 17:50-0400 Body height 162.56 cm Abel Savage Other [facility] Other 07-22-2022 17:50-0400 Diastolic blood pressure 83 mm[Hg] Abel Wan Other [facility] Other 07-22-2022 17:50-0400 Respiratory rate 18 /min Abel Wan Other [facility] Other 07-22-2022 17:50-0400 SaO2% (BldA) [Mass fraction] 99 % Abel Wan Other [facility] Other 07-22-2022 17:50-0400 Systolic blood pressure 120 mm[Hg] Abel Wan Other [facility] Other 06-25-2022 10:00-0400 Body height 162.56 cm Britney Asia Other [facility] Other 06-25-2022 10:00-0400 Body mass index (BMI) [Ratio] 35.25 kg/m2 Britney Asia Other [facility] Other 06-25-2022 10:00-0400 Body temperature 98 [degF] Britney Asia Other [facility] Other 06-25-2022 10:00-0400 Body weight 93.17 kg Britney Asia Other [facility] Other 06-25-2022 10:00-0400 Diastolic blood pressure 85 mm[Hg] Britney Asia Other [facility] Other 06-25-2022 10:00-0400 Respiratory rate 18 /min Britney Asia Other [facility] Other 06-25-2022 10:00-0400 SaO2% (BldA) [Mass fraction] 99 % Britney Asia Other [facility] Other 06-25-2022 10:00-0400 Systolic blood pressure 139 mm[Hg] Britney Asai Other [facility] Other 05-09-2022 12:20-0400 Body height 162.56 cm Abel Wan Other [facility] Other 05-09-2022 12:20-0400 Body mass index (BMI) [Ratio] 36.04 kg/m2 Abel Wan Other [facility] Other 05-09-2022 12:20-0400 Body temperature 98.4 [degF] Abel Wan Other [facility] Other 05-09-2022 12:20-0400 Body weight 95.26 kg Abel Wan Other [facility] Other 05-09-2022 12:20-0400 Respiratory rate 18 /min Abel Wan Other [facility] Other 05-09-2022 12:20-0400 SaO2% (BldA) [Mass fraction] 98 % Abel Wan Other [facility] Other 12-11-2021 10:00-0500 Body height 162.56 cm Britney Asia Other [facility] Other 12-11-2021 10:00-0500 Body mass index (BMI) [Ratio] 34.81 kg/m2 Britney Asia Other [facility] Other 12-11-2021 10:00-0500 Body temperature 98.9 [degF] Britney Asia Other [facility] Other 12-11-2021 10:00-0500 Body weight 91.99 kg Britney Asia Other [facility] Other 12-11-2021 10:00-0500 Diastolic blood pressure 70 mm[Hg] Britney Asia Other [facility] Other 12-11-2021 10:00-0500 Respiratory rate 18 /min Britney Asia Other [facility] Other 12-11-2021 10:00-0500 SaO2% (BldA) [Mass fraction] 98 % Britney Asia Other [facility] Other 12-11-2021 10:00-0500 Systolic blood pressure 120 mm[Hg] Britney Asia Other [facility] Other Encounters Encounter Date Encounter Type Care Provider Facility Start: 07-16-2025 End: 07-16-2025 Stevan Plasencia [employer]AC[employer] MEMBER Work Phone: [facility] Start: 07-16-2025 End: 07-16-2025 Stevan Palaciosa C Yadirakarolyn NATURAL RES[employer] FACULTY MEMBER Work Phone: [facility] Start: 07-16-2025 End: 07-16-2025 Office outpatient visit 25 minutes Roverto Hernandez Yadirakarolyn [employer] FACULTY MEMBER Work Phone: [facility] Comment on above: Tardive dyskinesia ( Primary Dx); Migraine without aura and without status migrainosus, not intractable Start: 07-16-2025 End: 07-16-2025 ambulatory ROVERTO PLASENCIA Not Available Start: 07-10-2025 End: 07-10-2025 Office outpatient visit 25 minutes Julio C Jarrett MD Work Phone: [facility] Comment on above: Essential hypertensi on (Primary Dx); Pure hypercholesterolemia ; Prediabetes; Moderate major depression (HCC); Generalized anxiety disorder ; Bipolar affective disorder, currently depressed, moderate (HCC); B12 deficiency; Obstructive sleep apnea syndrome; Cognitive impairment; Adrenal disease (HCC); Metabolic dysfunction-associated steatotic liver disease (MASLD); Tardive dyskinesia Start: 07-10-2025 End: 07-10-2025 ambulatory ROVERTO OSORIOOR-NOSSEK Not Available Start: 07-02-2025 End: 07-02-2025 Bamboo flowsheet Roshan Arriaga MD Work Phone: [facility] Start: 07-02-2025 End: 07-02-2025 Bamboo flowstad Arriaga MD Work Phone: [facility] Start: 07-02-2025 End: 07-02-2025 Office outpatient visit 25 minutes Roshan Arriaga MD Work Phone: [facility] Comment on above: Angioedema, initial encounter (Primary Dx); Chronic rhinitis; Flexural atopic dermatitis; Atopic dermatitis in adult Start: 07-02-2025 End: 07-02-2025 ambulatory ROSHAN ARRIAGA Not Available Start: 06-28-2025 ambulatory Daniela Mercer ty:[facility] Start: 06-26-2025 End: 06-26-2025 Office outpatient visit 25 minutes [facility] M Workman PA Work Phone: [facility] Comment on above: Tongue swelling (Ashley osvaldo Dx); Tardive dyskinesia; Essential hypertension ; Idiopathic angioedema, initial encounter; Stage 3a chronic kidney disease ([facility]-HCC); Idiopathic peripheral neuropathy Start: 06-26-2025 End: 06-26-2025 ambulatory ROVERTO GILLIAN-NOSSEK Not Available Start: 06-25-2025 End: 06-25-2025 Office outpatient visit 25 minutes Roverto Jake Gillian-Nossek CAREER LAW CLERK-PHOTOGRAPHIC EQUIPMENT MECHANIC Work Phone: [facility] Comment on above: Bipolar affective di sorder, currently depressed, moderate ([facility]) Start: 06-25-2025 End: 06-25-2025 ambulatory ROVERTO Jake GILLIAN-NOSSEK Not Available Start: 06-24-2025 End: 06-24-2025 Emergency department patient visit Julio C Jarrett MD Work Phone: -Emergency Room Work Phone: Start: 06-05-2025 End: 06-05-2025 Office outpatient visit 25 minutes Summer M Workman PA Work Phone: [facility] Comment on above: Essential hypertensi on (Primary Dx); Tongue swelling Start: 06-05-2025 End: 06-05-2025 ambulatory SUMMER M WORKMAN Not Available Start: 05-21-2025 End: 05-21-2025 Bamboo flowsheet Roverto C Windnagel [employer] MEMBER Work Phone: [facility] Start: 05-21-2025 End: 05-21-2025 Bamboo flowsheet Roverto C Windnagel [employer] FACULTY MEMBER Work Phone: [facility] Start: 05-21-2025 End: 05-21-2025 Office outpatient visit 25 minutes Roverto C Windnagel [employer] FACULTY MEMBER Work Phone: [facility] Comment on above: Tardive dyskinesia ( Primary Dx) Start: 05-21-2025 End: 05-21-2025 ambulatory ROVERTO C WINDNAGEL Not Available Start: 05-01-2025 End: 05-01-2025 Office outpatient visit 25 minutes Roverto Joseph Gillian-Nossek CAREER LAW CLERK-PHOTOGRAPHIC EQUIPMENT MECHANIC Work Phone: [facility] Comment on above: Bipolar affective di sorder, currently depressed, moderate (CMS/HCC); Generalized anxiety disorder (CMS/HCC) Start: 05-01-2025 End: 05-01-2025 ambulatory ROVERTO Jake GILLIAN-NOSSEK Not Available Start: 04-04-2025 End: 04-04-2025 Office outpatient visit 25 minutes Jacquie L Didion [employer]BER Work Phone: [facility] Comment on above: Essential hypertensi on (CMS/HCC) (Primary Dx); Idiopathic peripheral neuropathy; Tardive dyskinesia Start: 04-04-2025 End: 04-04-2025 ambulatory JACQUIE L DIDION Not Available Start: 03-12-2025 End: 03-12-2025 Bamboo flowsheet Roverto Joseph Gillian-Nossek CAREER LAW CLERK-PHOTOGRAPHIC EQUIPMENT MECHANIC Work Phone: [facility] Start: 03-12-2025 End: 03-12-2025 Bamboo flowsheet Roverto Joseph Gillian-Nossek CAREER LAW CLERK-PHOTOGRAPHIC EQUIPMENT MECHANIC Work Phone: [facility] Start: 03-12-2025 End: 03-12-2025 Office outpatient visit 25 minutes Roverto Joseph Gillian-Nossek CAREER LAW CLERK-PHOTOGRAPHIC EQUIPMENT MECHANIC Work Phone: [facility] Comment on above: Bipolar affective di sorder, currently depressed, moderate (CMS/HCC); Generalized anxiety disorder (CMS/HCC) Start: 03-12-2025 End: 03-12-2025 ambulatory ROVERTO Jake GILLIAN-NOSSEK Not Available Start: 03-05-2025 End: 03-05-2025 ambulatory RHIANNON R RISALITI Not Available Start: 02-23-2025 End: 02-23-2025 Office outpatient visit 25 minutes Rhiannon R Risaliti NATURAL RESOURCES FACULTY MEMBER Work Phone: [facility] Comment on above: Chest pain, unspecif ied type (Primary Dx); Generalized anxiety disorder (CMS/HCC) Start: 02-23-2025 End: 02-23-2025 ambulatory RHIANNON ZARATE Not Available Start: 02-14-2025 End: 02-14-2025 ambulatory QUAN KANG Not Available Start: 02-12-2025 End: 02-12-2025 Bamboo flowsheet Roverto Joseph Gillian-Nossek CAREER LAW CLERK-PHOTOGRAPHIC EQUIPMENT MECHANIC Work Phone: [facility] Start: 02-12-2025 End: 02-12-2025 Bamboo flowsheet Roverto Jake Gillian-Nossek CAREER LAW CLERK-PHOTOGRAPHIC EQUIPMENT MECHANIC Work Phone: [facility] Start: 02-12-2025 End: 02-12-2025 ambulatory ROVERTO Jake GILLIAN-NOSSEK Not Available Start: 01-30-2025 End: 01-30-2025 Clinisync Result Encounter Generic External Data Provider [facility] External Department Unsolicited Start: 01-30-2025 End: 01-30-2025 Clinisync Result Encounter Generic External Data Provider [facility] External Department Unsolicited Start: 01-18-2025 End: 01-18-2025 Bamboo flowsheet Roverto Jake Gillian-Nossek CAREER LAW CLERK-PHOTOGRAPHIC EQUIPMENT MECHANIC Work Phone: [facility] Start: 01-18-2025 End: 01-18-2025 Bamboo flowsheet Roverto Jake Gillian-Nossek CAREER LAW CLERK-PHOTOGRAPHIC EQUIPMENT MECHANIC Work Phone: [facility] Start: 01-18-2025 End: 01-18-2025 Office outpatient visit 15 minutes Roverto Jake Gillian-Nossek CAREER LAW CLERK-PHOTOGRAPHIC EQUIPMENT MECHANIC Work Phone: [facility] Comment on above: Bipolar affective di sorder, currently depressed, moderate (CMS/HCC); Hx of high risk medication treatment; Generalized anxiety disorder (CMS/HCC); Tardive dyskinesia Start: 01-18-2025 End: 01-18-2025 ambulatory ROVERTO Jake GILLIAN-NOSSEK Not Available Start: 01-02-2025 End: 01-02-2025 Office outpatient visit 25 minutes Rhiannongeovany Zarate [employer] FACULTY MEMBER Work Phone: [facility] Comment on above: Annual physical exam (Primary Dx); Essential hypertension (CMS/HCC); Pure hypercholesterolemia (CMS/HCC); History of multiple strokes; Prediabetes; Obstructive sleep apnea syndrome; Cognitive impairment; B12 deficiency; Moderate episode of recurrent major depressive disorder (CMS/HCC); Generalized anxiety disorder (CMS/HCC); Restless legs; Idiopathic peripheral neuropathy; Encounter for screening mammogram for malignant neoplasm of breast Start: 01-02-2025 End: 01-02-2025 Patient encounter procedure Rhiannon Zarate NATURAL RESOURCES FACULTY MEMBER Work Phone: [facility] Work Phone: Start: 01-02-2025 End: 01-02-2025 ambulatory JULIO C JARRETT Not Available Start: 12-21-2024 End: 12-21-2024 Office outpatient visit 40 minutes Roverto M Gillian-Nossek CAREER LAW CLERK-PHOTOGRAPHIC EQUIPMENT MECHANIC Work Phone: [facility] Comment on above: Hx of high risk medi cation treatment Start: 12-21-2024 End: 12-21-2024 ambulatory ROVERTO Jake GILLIAN-NOSSEK Not Available Start: 12-21-2024 End: 12-21-2024 Bamboo flowsheet Roverto Jake Gillian-Nossek CAREER LAW CLERK-PHOTOGRAPHIC EQUIPMENT MECHANIC Work Phone: [facility] Start: 12-21-2024 End: 12-21-2024 Bamboo flowsheet Roverto Jake Gillian-Nossek CAREER LAW CLERK-PHOTOGRAPHIC EQUIPMENT MECHANIC Work Phone: [facility] Start: 12-13-2024 End: 12-13-2024 Bamboo flowsheet Roverto Jake Gillian-Nossek CAREER LAW CLERK-PHOTOGRAPHIC EQUIPMENT MECHANIC Work Phone: [facility] Start: 12-13-2024 End: 12-13-2024 Bamboo flowsheet Roverto M Gillian-Nossek CAREER LAW CLERK-PHOTOGRAPHIC EQUIPMENT MECHANIC Work Phone: [facility] Start: 12-13-2024 End: 12-13-2024 Office outpatient visit 25 minutes Roverto M Gillian-Nossek CAREER LAW CLERK-PHOTOGRAPHIC EQUIPMENT MECHANIC Work Phone: [facility] Comment on above: Bipolar affective di sorder, currently depressed, moderate (CMS/HCC) Start: 12-13-2024 End: 12-13-2024 ambulatory ROVERTO CARRIZALES Not Available Start: 12-06-2024 End: 12-06-2024 ambulatory Julio C Jarrett MD Work Phone: [facility] Work Phone: Start: 12-06-2024 End: 12-06-2024 Patient encounter procedure Julio C Jarrett MD Work Phone: [facility] Work Phone: Start: 12-06-2024 End: 12-06-2024 Patient encounter procedure Julio C Jarrett MD Work Phone: [facility] [place] [facility] Start: 12-06-2024 End: 12-06-2024 ambulatory Julio C Jarrett MD Work Phone: [facility] Work Phone: Start: 11-17-2024 End: 11-17-2024 Office outpatient visit 25 minutes Rhiannon Zarate NATURAL RESOURCES FACULTY MEMBER Work Phone: [facility] Comment on above: Prediabetes (Primary Dx); History of multiple strokes; Generalized anxiety disorder (CMS/HCC); Primary osteoarthritis involving multiple joints; Essential hypertension (CMS/HCC); Chronic pain of both knees Start: 11-17-2024 End: 11-17-2024 ambulatory RHIANNON ZARATE Not Available Start: 10-30-2024 End: 10-30-2024 Refill Sonia Zimmer EQUIPMENT APPLICATION SPECIALIST [facility] Comment on above: Class 2 obesity due to excess calories without serious comorbidity with body mass index (BMI) of 35.0 to 35.9 in adult; Restless legs; Idiopathic peripheral neuropathy Start: 09-29-2024 End: 09-29-2024 Patient encounter procedure MD Julio C Jarrett Work Phone: [facility] Start: 09-29-2024 End: 09-29-2024 ambulatory MD Julio C Jarrett Work Phone: [facility] Work Phone: Start: 09-15-2024 End: 09-15-2024 Office outpatient visit 25 minutes Jacquie Yip NAT[employer] RESOURCES FACULTY MEMBER Work Phone: [facility] Comment on above: Burning mouth syndro me (Primary Dx); Tongue pain; Restless legs; Idiopathic peripheral neuropathy; Prediabetes; BMI 35.0-35.9,adult Start: 09-15-2024 End: 09-15-2024 ambulatory JULIO C JARRETT Not Available Start: 09-12-2024 End: 09-12-2024 Bamboo flowsheet Roverto Jake Gillian-Nossek CAREER LAW CLERK-PHOTOGRAPHIC EQUIPMENT MECHANIC Work Phone: [facility] Start: 09-12-2024 End: 09-12-2024 Bamboo flowsheet Roverto Jake Gillian-Nossek CAREER LAW CLERK-PHOTOGRAPHIC EQUIPMENT MECHANIC Work Phone: [facility] Start: 09-12-2024 End: 09-12-2024 Office outpatient visit 15 minutes Rovreto Jake Gillian-Nossek CAREER LAW CLERK-PHOTOGRAPHIC EQUIPMENT MECHANIC Work Phone: [facility] Comment on above: Bipolar affective di sorder, currently depressed, moderate (CMS/HCC); Generalized anxiety disorder (CMS/HCC) Start: 09-12-2024 End: 09-12-2024 ambulatory ROVERTO Joseph GILLIAN-NOSSEK Not Available Start: 09-11-2024 End: 09-11-2024 ambulatory MD Julio C Jarrett Work Phone: [facility] Work Phone: Start: 09-11-2024 End: 09-11-2024 Discharged Recurring MD Julio C Jarrett Work Phone: [facility] [place] Work Phone: Start: 05-01-2024 End: 05-01-2024 ambulatory MD Julio C Jarrett Work Phone: [facility] Work Phone: Start: 05-01-2024 End: 05-01-2024 Discharged Recurring MD Julio C Jarrett Work Phone: [facility] [place] Work Phone: Start: 04-30-2024 End: 04-30-2024 ambulatory MD Julio C Jarrett Work Phone: [facility] Work Phone: Start: 04-30-2024 End: 04-30-2024 Patient encounter procedure MD Julio C Jarrett Work Phone: [facility] [place] Work Phone: Start: 04-28-2024 Registered Recurring MD Julio C Jarrett Work Phone: [facility] [place] Work Phone: Start: 02-25-2024 Non-patient / Non-visit MD Daniel Jarrett Work Phone: [facility] Work Phone: Start: 02-25-2024 End: 02-25-2024 Admission to same day surgery center MD Julio C Jarrett Work Phone: [facility] Work Phone: Start: 02-25-2024 End: 02-25-2024 ambulatory MD Julio C Jarrett Work Phone: [facility] Work Phone: Start: 02-21-2024 Registered Recurring MD Julio C Jarrett Work Phone: [facility] [place] Work Phone: Start: 01-22-2024 Non-patient / Non-visit MD Daniel Jarrett Work Phone: [facility] Work Phone: Start: 01-21-2024 End: 01-22-2024 Evaluation and management of inpatient PHYSICIAN BENJAMIN [facility] Work Phone: Start: 01-21-2024 Registered Recurring PHYSICIAN NO [facility] [place] Work Phone: Start: 11-15-2023 End: 11-15-2023 ambulatory PHYSICIAN NO [facility] Work Phone: Start: 11-15-2023 End: 11-15-2023 Discharged Recurring PHYSICIAN NO [facility] [place] Work Phone: Start: 07-25-2023 End: 07-25-2023 ambulatory MD Julio C Jarrett Work Phone: [facility] Work Phone: Start: 07-25-2023 End: 07-25-2023 Departed Referred MD Julio C Jarrett Work Phone: [facility] [place] Work Phone: Start: 07-23-2023 End: 07-23-2023 ambulatory DUKE MORRIS Facility[facility] Start: 07-20-2023 Registered Recurring MD Julio C Jarrett Work Phone: [facility] [place] Work Phone: Start: 04-29-2023 ambulatory ДМИТРИЙ ROÍS Facility:H1 Start: 04-20-2023 Encounter for prepro cedural cardiovascular examination ДМИТРИЙ RÍOS [facility] Start: 04-20-2023 Encounter for prepro cedural laboratory examination ДМИТРИЙ RÍOS [facility] Start: 04-19-2023 End: 04-20-2023 ambulatory ДМИТРИЙ RÍOS Facility:[facility]1 Start: 04-19-2023 End: 04-20-2023 Encounter for preprocedural cardiovascular examination ДМИТРИЙ RÍOS Facility:[facility]1 Start: 02-15-2023 End: 02-16-2023 ambulatory AMELIE MARKS Facility:H1 Start: 12-21-2022 Encounter for other preprocedural examination ДМИТРИЙ RÍOS [facility] Start: 12-21-2022 Encounter for prepro cedural laboratory examination ДМИТРИЙ RÍOS [facility] Start: 12-17-2022 End: 12-17-2022 ambulatory ДМИТРИЙ Chasity KHUSHBU Facility:[facility]1 Start: 12-15-2022 End: 12-16-[address] JULIO C JARRETT Facility:[facility]1 Start: 12-15-2022 End: 12-16-2022 Encounter for preprocedural laboratory examination DR JULIO C JARRETT Facility:[facility]1 Start: 12-09-2022 End: 12-09-[address] JAMILA LEIGH . Facility:[facility] Start: 10-26-2022 ambulatory Facility:[id number] Start: 10-20-2022 End: 10-20-2022 ambulatory MD Julio C Jarrett Work Phone: [facility] Work Phone: Start: 10-20-2022 End: 10-20-2022 Patient encounter procedure MD Julio C Jarrett Work Phone: [facility]ro[facility] Start: 10-06-2022 End: 10-06-[address] DANIELITO MCCORD . Facility:[facility]1 Start: 08-18-2022 End: 08-18-2022 ambulatory Abel Hurst Other [facility] Other Start: 08-18-2022 Telephone encounter Abel Hurst [facility] Start: 08-11-2022 ambulatory Facility:[id number] Start: 08-11-2022 End: 08-11-2022 Patient encounter procedure MD Julio C Jarrett Work Phone: [facility] Start: 08-06-2022 End: 08-06-[address] DELONTE RAYO Facility:[facility]1 Start: 07-22-2022 End: 07-22-2022 Patient encounter procedure MD Julio C Jarrett Work Phone: [facility] Start: 07-22-2022 End: 07-22-2022 ambulatory Abel Wan Other [facility] Other Start: 07-22-2022 Office outpatient vi sit 25 minutes Abel Wan [facility] [address] Start: 06-25-2022 End: 06-25-2022 ambulatory Britney Asia Other [facility] Other Start: 06-25-2022 Office outpatient vi sit 15 minutes Britney Asia [facility] Start: 05-09-2022 End: 05-09-2022 ambulatory Abel Wan Other [facility] Other Start: 05-09-2022 Office outpatient vi sit 15 minutes Abel Wan [facility] [address] Start: 12-11-2021 End: 12-11-2021 ambulatory Britney Asia Other [facility] Other Start: 12-11-2021 Office outpatient vi sit 15 minutes Britney Asia [facility] [place] Start: 07-05-2018 Patient encounter [facility] Facility:[id number] Start: 04-05-2018 Patient encounter [facility] Facility:[id number] Procedures Date Procedure Procedure Detail Performing Clinician Start: 03-05-2025 Mammography Roverto Fi or-Nossek CAREER LAW CLERK-PHOTOGRAPHIC EQUIPMENT MECHANIC Work Phone: Start: 01-30-2025 XR FOOT LT MIN 3V Gener ic External Data Provider Start: 12-06-2024 X-ray of both knees, three [...] AB[facility]JIT NO FAMILY Start: 10-26-2023 Mammography Roverto Carty [facility] Work Phone: Start: 10-05-2023 Microscopic observat ion [Identifier] in Cervix by Cyto stain Roverto Carrizales [facility] Work Phone: Start: 07-22-2022 X-ray of right knee MD Julio C Jarrett Work Phone: Plan of Treatment Date Care Activity Detail Author Start: 02-24-2034 Screening for malignant neoplasm of colon [facility] Start: 02-14-2030 Screening for malignant neoplasm of cervix [facility] Start: 10-05-2028 Screening for malignant neoplasm of cervix [facility] Start: 10-05-2026 Screening for malignant neoplasm of cervix Pap Smear [facility] Start: 03-05-2026 Screening for malignant neoplasm of breast Mammogram [facility] Start: 01-10-2026 End: 01-10-2026 Patient encounter procedure 01/10/2026 9:45 AM EST Office Visit [facility] [address] [place] [address] [facility] Start: 01-06-2026 End: 07-05-2026 Comprehensive metabolic 2000 panel - Serum or Plasma Comprehensive metabolic panel Lab Routine Essential hypertension Expected: 01/06/2026 (Approximate), Expires: 07/05/2026 [facility] Comment on above: Expected: 01/06/2026 (Approximate), Expi res: 07/05/2026 Start: 01-06-2026 End: 07-05-2026 Lipid 1996 panel - Serum or Plasma Lipid panel Lab Routine Essential hypertension Pure hypercholesterolemia Expected: 01/06/2026 (Approximate), Expires: 07/05/2026 [facility] Work Phone: Comment on above: Expected: 01/06/2026 (Approximate), Expi res: 07/05/2026 Start: 10-17-2025 End: 10-17-2025 Patient encounter procedure 10/17/2025 11:30 AM EST [facility] [address] [place] [phone] Jacquie Velasco, CAREER LAW CLERK-[facility] [address] [place] [address] [facility] Start: 08-27-2025 End: 08-27-2025 Patient encounter procedure 08/27/2025 10:30 AM EDT Office Visit [facility] [address] [place] [address] Roverto Carrizales, CAREER LAW CLERK-PHOTOGRAPHIC EQUIPMENT MECHANIC [address] [place] [address] [facility] [facility] Start: 07-30-2025 Influenza vaccination [facility] Start: 07-23-2025 End: 07-23-2025 Patient encounter procedure 07/23/2025 11:20 AM EDT Office Visit [facility] [place] [facility] [address] [place] [phone] Roshan Arriaga MD [address] [facility] [address] [place] [address] [facility] [place] [facility] Start: 07-16-2025 End: 07-16-2025 Patient encounter procedure [facility] Comment on above: Arrived Start: 07-10-2025 End: 07-10-2025 Patient encounter procedure [facility] Start: 07-02-2025 End: 07-02-2026 C4 complement C4 complement Lab Routine Angioedema, initial encounter Expected: 07/02/2025 (Approximate), Expires: 07/02/2026 [facility] Comment on above: Expected: 07/02/2025 (Approximate), Expi res: 07/02/2026 Start: 07-02-2025 End: 01-02-2026 CBC W Auto Differential panel - Blood [facility] Comment on above: Expected: 07/02/2025, Expires: Start: 07-02-2025 End: 01-02-2026 Cobalamin (Vitamin B12) [Mass/volume] in Serum or Plasma Vitamin B12 Lab Routine B12 deficiency Expected: 07/02/2025, Expires: 01/02/2026 [facility] Comment on above: Expected: 07/02/2025, Expires: Start: 07-02-2025 End: 01-02-2026 Comprehensive metabolic 2000 panel - Serum or Plasma Comprehensive metabolic panel Lab Routine Annual physical exam Essential hypertension (CMS/HCC) Expected: 07/02/2025, Expires: 01/02/2026 [facility] Comment on above: Expected: 07/02/2025, Expires: Start: 07-02-2025 End: 01-02-2026 Hemoglobin a1c with eag Hemoglobin a1c with eag Lab Routine Prediabetes Expected: 07/02/2025, Expires: 01/02/2026 [facility] Comment on above: Expected: 07/02/2025, Expires: Start: 07-02-2025 End: 01-02-2026 Lipid 1996 panel - Serum or Plasma Lipid panel Lab Routine Annual physical exam Pure hypercholesterolemia (CMS/HCC) Expected: 07/02/2025, Expires: 01/02/2026 [facility] Comment on above: Expected: 07/02/2025, Expires: Start: 07-02-2025 End: 01-02-2026 Microalbumin/Creatinine panel in random Urine Microalbumin / creatinine urine ratio Lab Routine Essential hypertension (CMS/HCC) Expected: 07/02/2025, Expires: 01/02/2026 [facility] Comment on above: Expected: 07/02/2025, Expires: Start: 07-02-2025 End: 07-02-2026 Protein electrophoresis, serum Protein electrophoresis, serum Lab Routine Angioedema, initial encounter Expected: 07/02/2025 (Approximate), Expires: 07/02/2026 [facility] Work Phone: Comment on above: Expected: 07/02/2025 (Approximate), Expi res: 07/02/2026 Start: 07-02-2025 End: 07-02-2026 Thyroid stimulating immunoglobulins actual/normal in Serum Immunoglobulin free LT chains blood Lab Routine Angioedema, initial encounter Expected: 07/02/2025 (Approximate), Expires: 07/02/2026 [facility] Comment on above: Expected: 07/02/2025 (Approximate), Expi res: 07/02/2026 Start: 07-02-2025 End: 01-02-2026 Urinalysis complete panel - Urine Urinalysis with microscopic Lab Routine Essential hypertension ([facility]/HCC) Expected: 07/02/2025, Expires: 01/02/2026 [facility] Comment on above: Expected: 07/02/2025, Expires: Start: 07-02-2025 End: 07-02-2025 Patient encounter procedure 07/02/2025 10:00 AM EDT Office Visit [facility] [place] [facility] [address] [place] [phone] Roshan Arriaga MD [address] [place] [address] Arrived [facility] [place] [facility] Comment on above: Arrived Start: 06-27-2025 End: 09-24-2025 Protein, total and protein electrophoresis with immunofixation Protein, total and protein electrophoresis with immunofixation Lab Routine Tongue swelling Essential hypertension Idiopathic angioedema, initial encounter Stage 3a chronic kidney disease ([facility]-HCC) Expected: 06/27/2025, Expires: 09/24/2025 [facility] Comment on above: Expected: 06/27/2025, Expires: Start: 06-27-2025 End: 09-24-2025 Thyroid stimulating immunoglobulins actual/normal in Serum Immunoglobulin free LT chains blood Lab Routine Tongue swelling Essential hypertension Idiopathic angioedema, initial encounter Stage 3a chronic kidney disease ([facility]-HCC) Expected: 06/27/2025, Expires: 09/24/2025 [facility] Work Phone: Comment on above: Expected: 06/27/2025, Expires: Start: 06-26-2025 End: 06-26-2025 Patient encounter procedure [facility] Comment on above: Tongue swelling (Primary Dx); Tardive dyskinesia; Essential hypertension Start: 06-12-2025 End: 06-12-2025 Patient encounter procedure 06/12/2025 1:30 PM EDT Office Visit [facility] [address] [place] [address] Roverto Carrizales, CAREER LAW CLERK-PHOTOGRAPHIC EQUIPMENT MECHANIC [address] [place] [address] [facility] Start: 05-21-2025 End: 05-21-2025 Patient encounter procedure [facility] Comment on above: Arrived Start: 04-25-2025 End: 04-25-2025 Patient encounter procedure 04/25/2025 9:00 AM EDT Office Visit [facility] [address] [place] [address] Roverto Carrizales, [place] [facility]-PHOTOGRAPHIC EQUIPMENT MECHANIC [address] [facility] [address] [place] [address] [facility] Start: 03-12-2025 End: 03-12-2025 Patient encounter procedure [facility] Comment on above: Arrived Start: 03-05-2025 End: 03-05-2025 Professional / ancillary services management 03/05/2025 11:00 AM EDT Ancillary Procedure [facility] [place] [address] [place] [phone] [facility] [place] Start: 02-14-2025 End: 02-14-2025 Patient encounter procedure 02/14/2025 10:45 AM EDT Office Visit [facility] [address] [place] [phone] Quan Kang, [address] [place] [address] [facility] Start: 02-12-2025 End: 02-12-2025 Patient encounter procedure [facility] Comment on above: Arrived Start: 01-18-2025 End: 01-18-2025 Patient encounter procedure 01/18/2025 2:00 PM EST Office Visit [facility] [address] [place] [address] Roverto Carrizales, CAREER LAW CLERK-PHOTOGRAPHIC EQUIPMENT MECHANIC [address] [place] [address] [facility] Comment on above: Arrived Start: 01-11-2025 End: 01-11-2025 Patient encounter procedure 01/11/2025 11:00 AM EST Office Visit [facility] [address] [place] [address] Roverto Carrizales, CAREER LAW CLERK-PHOTOGRAPHIC EQUIPMENT MECHANIC [address] [place] [address] [facility] Start: 01-02-2025 End: 04-01-2025 DBT Breast - bilateral screening Bilateral screening mammogram with tomosynthesis Imaging Routine Encounter for screening mammogram for malignant neoplasm of breast Expected: 01/02/2025 (Approximate), Expires: 04/01/2025 [facility] Work Phone: Comment on above: Expected: 01/02/2025 (Approximate), Expi res: 04/01/2025 Start: 01-01-2025 End: 01-01-2025 Patient encounter procedure 01/01/2025 8:45 AM EST Office Visit [facility] [address] [facility] [address] [place] [phone] Julio C Jarrett MD [address] [facility] [address] [place] [address] [facility] Start: 12-21-2024 End: 12-21-2024 [...] BI 3V - NOT FOR ER USE [facility] Start: 12-06-2024 XR Knee - bilateral 3 Views [facility] Start: 10-26-2024 Screening for malignant neoplasm of breast Mammogram [facility] Start: 10-17-2024 End: 10-17-2024 Patient encounter procedure 10/17/2024 2:15 PM EST Office Visit [facility] [address] [place] [address] Quan Kang, DO [address] [place] [address] [facility] Start: 09-12-2024 End: 09-12-2024 Patient encounter procedure 09/12/2024 9:00 AM EDT Office Visit [facility] [address] [place] [address] Roverto Carrizales, CAREER LAW CLERK-PHOTOGRAPHIC EQUIPMENT MECHANIC [address] [place] [address] Arrived [facility] Comment on above: Arrived Start: 07-30-2024 Influenza vaccination Influenza Vaccine (#1) [facility] Start: 02-25-2024 [facility] Start: 01-22-2024 [facility] Start: 01-21-2024 Referral to neurologist [facility] Start: 01-21-2024 Hospital admission [facility] Start: 01-21-2024 Bacteria identified in Urine by Culture [facility] Start: 01-21-2024 Blood culture for bacteria, including anaerobic screen Blood Culture [facility] Start: 01-21-2024 Urine culture Urine Culture [facility] Start: 01-21-2024 MRI of head MR head/brain wo con [facility] Start: 1968 Screening for malignant neoplasm of colon [facility] Patient Education [facility] Work Phone: Patient referral [facility] Work Phone: Immunizations Immunization Date Immunization Notes Care Provider Fa minh 11-30-2023 Influenza, injectable, Madin [place] Canine Kidney, preservative free, quadrivalent Roverto Gillian-Nossek CAREER LAW CLERK-PHOTOGRAPHIC EQUIPMENT MECHANIC Work Phone: [facility] 11-30-2023 influenza virus vaccine, unspecified formulation Roverto Gillian-Nossek CAREER LAW CLERK-PHOTOGRAPHIC EQUIPMENT MECHANIC Work Phone: [facility] 08-25-2022 Influenza, injectable, Madin Radha Canine Kidney, preservative free, quadrivalent Roverto Gillian-Nossek CAREER LAW CLERK-PHOTOGRAPHIC EQUIPMENT MECHANIC Work Phone: [facility] 04-05-2021 Moderna SARS-CoV-2 Vaccination Roverto Gillian-Nossek CAREER LAW CLERK-PHOTOGRAPHIC EQUIPMENT MECHANIC Work Phone: [facility] 09-16-2020 influenza, injectable, quadrivalent, preservative free PHYSICIAN [facility] 09-16-2020 influenza, injectable, quadrivalent, contains preservative Britney Asia Other [facility] Other 09-18-2019 influenza, injectable, quadrivalent, preservative free PHYSICIAN [facility] 09-18-2019 influenza, injectable, quadrivalent, contains preservative Britney Asia Other [facility] Other 01-11-2018 influenza, injectable, quadrivalent, preservative free Roverto LillyNossek CAREER LAW CLERK-PHOTOGRAPHIC EQUIPMENT MECHANIC Work Phone: [facility] NEGATED: Highlighted row has not occurred!03-27-2019 influenza, seasonal, injectable Patient Objection Britney Betancourt Other [facility] Other Payers Date Payer Category [place] [id number] 2024 Medicaid [id number] 2023 Private Health Insurance [id number]. [id number] 2023 Unknown [id number] 1968 Unknown [id number] 2.16.840.1.876751.3.579.2. 356 1968 Unknown [id number] 2.16.840.1.699345.3.579.2. 356 1968 Unknown [id number] 2.16.840.1.937968.3.579.2. 593 1968 Unknown [id number] 2.16.840.1.731408.3.579.2. 593 1968 Unknown [id number] 2.16.840.1.610807.3.579.2. 593 1968 Unknown [id number] 2.16.840.1.777822.3.579.2. 593 1968 Unknown [id number] 2.16.840.1.111707.3.579.2. 593 1968 Unknown [id number] 2.16.840.1.534278.3.579.2. 593 1968 Unknown [id number] 2.16.840.1.787346.3.579.2. 593 1968 Unknown [id number] 2.16.840.1.999676.3.579.2. 593 1968 Unknown [id number] 2.16840.1.080064.3.579.2. 718 1968 Unknown [id number] 2.16840.1.619062.3.579.2. 1259 1968 Unknown [id number] 2.16840.1.970944.3.579.2. 1259 1968 Unknown [id number] 2.16840.1.831508.3.579.2. 125 1968 Unknown [id number] 2.16840.1.404917.3.579.2. 1259 1968 Unknown [id number] 2.16840.1.909931.3.579.2. 1259 1968 Unknown [id number] 2.16840.1.572565.3.579.2. 1259 1968 Unknown [id number] 2.16.840.1.300149.3.579.2. 1259 1968 Unknown [id number] 2.16.840.1.569937.3.579.2. 1259 1968 Unknown [id number] 2.16.840.1.157313.3.579.2. 1259 1968 Unknown [id number] 2.16.840.1.709081.3.579.2. 1259 1968 Unknown [id number] 2.16.840.1.267376.3.579.2. 1258 1968 Unknown [id number] 2.16.840.1.170607.3.579.2. 1258 1968 Unknown [id number] 2.16.840.1.252129.3.579.2. 1258 1968 Unknown [id number] 2.16.840.1.606419.3.579.2. 1258 1968 Unknown [id number] 2.16.840.1.520586.3.579.2. 1258 1968 Unknown [id number] 2.16.840.1.800241.3.579.2. 1258 1968 Unknown [id number] 2.16840.1.007341.3.579.2. 1258 1968 Unknown [id number] 2.16840.1.373613.3.579.2. 1258 1968 Unknown [id number] 2.16.840.1.058181.3.579.2. 1258 1968 Unknown [id number] 2.16.840.1.031183.3.579.2. 1258 1968 Unknown [id number] 2.16840.1.318206.3.579.2. 1258 1968 Unknown [id number] 2.16.840.1.650343.3.579.2. 1258 1968 Unknown [id number] 2.16.840.1.271888.3.579.2. 1258 1968 Unknown [id number] 2.16.840.1.965142.3.579.2. 1258 1968 Unknown [id number] 2.16.840.1.302678.3.579.2. 1258 1968 Unknown [id number] 2.16.840.1.029556.3.579.2. 1258 1968 Unknown [id number] 2.16.840.1.377115.3.579.2. 1258 1968 Unknown [id number] 2.16.840.1.215549.3.579.2. 1258 1968 Unknown [id number] 2.16840.1.310634.3.579.2. 1258 1968 Unknown [id number] 2.16.840.1.645981.3.579.2. 1258 1968 Unknown [id number] 2.16840.1.951807.3.579.2. 1258 1968 Unknown [id number] 2.16840.1.636524.3.579.2. 1258 1968 Unknown [id number] 2.840.1.224773.3.579.2. 1258 1968 Unknown [id number] 2.16840.1.771237.3.579.2. 1258 1968 Unknown [id number] 2.16840.1.692770.3.579.2. 1258 1968 Unknown [id number] 2.16840.1.435665.3.579.2. 1258 1968 Unknown [id number] 2.840.1.462796.3.579.2. 1258 1968 Unknown [id number] 2.16840.1.974503.3.579.2. 1258 1968 Unknown [id number] 2.16840.1.081571.3.579.2. 1258 1968 Unknown [id number] 2.16840.1.230417.3.579.2. 1258 1968 Unknown [id number] 2.16840.1.262293.3.579.2. 1258 1968 Unknown [id number] 2.16840.1.883588.3.579.2. 1259 1959 Unknown [id number] 1959 Unknown [id number] 1959 Unknown [id number] 1959 Unknown Self-pay Self Pay [id number] Unknown [id number] Social History Date Type Detail Facility Tobacco smoking stat us NYIS Unknown if ever smoked [facility] Start: 1970 Sex Assigned At Female [facility] Start: 04-02-2023 End: 10-05-2023 Sex Assigned At [facility] Other Start: 08-09-2019 End: 04-02-2023 Tobacco smoking status NHIS Never smoked tobacco (finding) [facility] Start: 04-02-2023 Tobacco use and exposure Smokeless tobacco non-user [facility] Start: 06-07-2024 End: 07-12-2025 Alcoholic beverage intake Current drinker of alcohol [...] Gender identity Identifies as female gender (finding) [facility] Start: 12-06-2024 End: 12-07-2024 Sex Female (finding) [facility] Start: 05-21-2025 Alcohol Comment caffeine: occa sional coca cola, once in a while, 1 a day [facility] Medical Equipment Procedure Code Equipment Code Equipment Origin al Text Equipment Identifier Dates EGD, with Sheldon pH monitoring device placement [id number] FDA Start: 08-09-2019 Goals Date Patient Goal Desired Activity /State Functional Status Date Assessment Result Facility 01-21-2024 Functional status Patient at Baseline [facility] Work Phone: Mental Status Date Assessment Result Facility 01-21-2024 Cognitive function Cognitive Sta tus Patient at Baseline [facility] Work Phone: Clinical Notes 12-11-2021 to 07-16-2025 Roverto Plasencia NP - 07/16/2025 12:00 PM Reymundo Jarrett MD - 07/10/2025 9:45 AM Rosaline Arriaga MD - 07/02/2025 10:00 AM MILLI Chavis - 06/26/2025 2:30 PM EDT Note Date & Type Note Facility 07-16-2025 History of Presen t illness Narrative Images from the original note were not included. CHIEF COMPLAINT REASON FOR VISIT : Patient is here today for follow-up of the diagnosis below. I am following the plan of care established by Dr Flores, 04/2025, who is present in the office today HPI: TARDIVE DYSKINESIAS -She has constant involuntary movement of her tongue and right leg. -Her tongue swells up and she has a hard time talking. -medicine is helping -She takes benadryl for the tongue swelling which helps. Has seen brand sales manager and had allergy testing which was neg. He gave her 4 meds [...] daily, Applied to affected areas on the scalp [...] Recent and remote memory are intact. Speech is normal. Language is fluent with no aphasia. Attention [...] in upper and lower extremities. Coordination Right: Ezkhkb-qq-mhvw normal. Rapid alternating movement normal. Bxjf-nb-dyby normal.Left: Jimkkh-gt-wglu normal. Rapid alternating movement normal. Imiz-zt-qqpi normal. Gait Normal casual, toe, heel and [...] who referred her to us for tardive dyskinesia. She is on hydroxyzine and valbenazine. She has persistent movement in her mouth as well as her right side with recent involvement of her right arm. She states the Ingrezza helped initially but not as much recently. We will change her to Austedo [...] make further recommendations documented in this encounter [facility] 07-10-2025 History of Presen t illness Narrative Images [...] has been prescribed several medications by her brand sales manager, but they have not alleviated her tongue [...] daily, Applied to affected areas on the scalp [...] Wt 190 lb SpO2 97% BMI 31.62 kg/m OB Status Postmenopausal Smoking Status Never BSA 1.99 m BP Readings from Last 3 Encounters: 07/10/25 [...] B12 deficiency: Chronic. - Advised to start pvks-hnb-xpxmbra vitamin B12 supplements. - cyanocobalamin (Vitamin B-12) [...] of ingestion. - Tongue issues following with Super[employer]. Follow-up - Next scheduled visit. Patient was seen and examined with Rhiannon Zarate CNP. History was confirmed and verified. Jama elements of the exam were also completed. Assessment and plan were reviewed and addended as needed. Agree with documentation above. documented in this encounter [facility] 07-02-2025 History of Presen t illness Narrative Yarelis Swenson is a very pleasant 55 y.o. year old female who comes to the office today with the chief complaint of tongue swelling. Patient has had intermittent swelling of her tongue for several months. Her lisinopril was discontinued as a result as was her cholesterol medication. Patient went to the emergency room and was given Solu-Medrol 125 mg IV as well as diphenhydramine and her symptoms were significantly improved at that time and she was discharged to home. She was given a prednisone taper and hydroxyzine have at home. This occurred on June 24, 2025. About 6 months ago she noted tongue swelling that did not get better with Benadryl. She went to the ER and got 80% better with steroids and Benadryl. She feels she has tongue swelling almost every day. She cannot think of any trigger for these episode. She is not sure if Atarax works to help her symptoms. She has no hives with these episodes. The swelling really only involves her tongue and throat but never the hands or feet or face. She has no SOB or wheeze or low BP with these episodes. She often notes that the episodes tend to occur after many hours without food or medicine. She does feel she has less angioedema off of the lisinopril. She has no facial swelling or redness. She has episodes of itching that tend to occur on her head. EXAM The patient appears comfortable in the office today. Lungs are clear to auscultation bilaterally. The oral mucosa is pink and healthy without any lesions or ulcers. The palate elevates in the midline. The tongue is moderately enlarged and the patient has some movements c/w tardive dyskinesia. The nasal mucosa is pink and healthy. There is no epistaxis mucopus or nasal polyposis noted. The nasal septum is approximately in the midline. The skin is notable for erythema and scaling of the scalp. Based on the HPI and physical exam, it is medically necessary to perform allergy skin testing today to differentiate if the patients symptoms are allergic in nature and devise a treatment plan. This is a separate procedure from the time spent on the EM encounter. As the patient has not taken any antihistamines within the past five days, we will proceed with skin testing today. Skin testing in the office today performed under direct physician supervision showed negative testing for multiple foods in the setting of a positive histamine control. IMPRESSION: Angioedema -we agreed she would have blood work drawn for serum protein electrophoresis C4 complement level and light chain analysis and I suggested she use high-dose antihistamines every day as prescribed and follow-up in 4 weeks for reassessment or sooner should problems arise. SPEP light chains C4 - CFSA - [place]. Atopic dermatitis - triamcinolone lotion scalp. I cautioned the patient about the potential for skin atrophy with long-term repeated use of topical steroids. documented in this encounter [facility] 06-26-2025 History of Presen t illness Narrative Yarelis Swenson is a 55 y.o. female presents with chief complaint of 3 week follow up (Losartan discontinued at last office visit and advised to monitor BP. Pt stated she can't fill her gabapentin for 6 more days. Wants to know if she can get lyrica as a back up.) and Oral Swelling (Tongue swelling. ER yesterday. ) HPI: History of Present Illness The patient presents for evaluation of tongue swelling, neuropathic pain, and blood pressure management. She reports that the prednisone taper prescribed did not alleviate her tongue swelling. She was administered additional prednisone at the hospital yesterday. The swelling has been persistent despite discontinuing losartan and taking steroids. She denies any drooling, difficulty handling secretions, SOB. She has exhausted her supply of gabapentin and is seeking a prescription for Lyrica as an alternative until she can refill her gabapentin in 6 days. She has been experiencing increased leg discomfort, which she manages by taking extra doses of gabapentin, which does work, even though she is aware this is not recommended. The additional gabapentin appears to provide relief. Occasionally, she takes 4 pills at night if she misses her daytime dose. She has discontinued Ingrezza due to its ineffectiveness and has switched to Austedo as per Dr. Mike recommendation. She has also lost 15 pounds and reports feeling better overall. Her blood pressure readings have been satisfactory, although she notes that the diastolic values were slightly elevated. She reports overall good health and has an upcoming appointment on 07/10/2025. I have reviewed and reconciled the history and medication list with the patient today. HISTORIES: PAST MEDICAL HISTORY: Past Medical History: Diagnosis Date Arthritis Bipolar [...] 11/02/2022 MR ANGIOGRAM HEAD WO IV CONTRAST [facility] MR ANGIOGRAM HEAD WO IV [...] Daily Austedo XR 36 mg, Oral, Daily gabapentin (Neurontin) 600 MG tablet TAKE 1 TABLET BY MOUTH EVERY MORNING, THEN HALF A TABLET BY MOUTH IN THE AFTERNOON AND TAKE 1.5 TABLET BY MOUTH EVERY NIGHT AT BEDTIME hydroCHLOROthiazide (HYDRODiuril) 25 MG tablet TAKE 1 TABLET BY MOUTH DAILY IN THE MORNING hydrOXYzine HCl (ATARAX) 50 mg, Oral, 2 times daily PRN ibuprofen 600 MG tablet Every 8 hours PRN predniSONE (Deltasone) 10 MG tablet Day 1-2 take 4 tabs orally by mouth once daily. Day 3-4 take 3 tabs. Day 5-6 take 2 tabs. Day 7-8 take 1 tab. Once daily for 8 days. sertraline (ZOLOFT) 100 mg, Oral, Daily ALLERGIES: Allergies Allergen Reactions Losartan Angioedema Swelling of tongue Amoxicillin Hives Bupropion Other Reaction(s): caused made me feel weird drowsiness, lack of motivation Oxycodone GI intolerance PHYSICAL EXAM: Visit Vitals BP 110/80 Ht 5' 5 Wt 187 lb BMI 31.12 kg/m OB Status Postmenopausal Smoking Status Never BSA 1.97 m BP Readings from Last 3 Encounters: 06/26/25 110/80 06/25/25 116/68 06/05/25 102/70 Wt Readings from Last 3 Encounters: 06/26/25 187 lb 06/25/25 187 lb 06/05/25 192 lb Physical Exam Physical Exam General Examination: alert, oriented, normal affect, well-appearing, in no acute distress, well developed, well nourished. Head: normocephalic, atraumatic Eyes: sclera non-icteric Ears: auditory canal clear, tympanic membrane intact, clear Oral Cavity: no lesions, mucosa moist, tongue mildly edematous, no lip edema, no erythema, no hot potatoe voice, handling secretions well, no resp distress Throat: clear, symmetrical rise of soft palate and uvula, no erythema or exudate Heart: regular rate and rhythm, S1, S2 normal Lungs: clear to auscultation bilaterally. No wheezes, rales, rhonchi. Extremities: no edema, no cyanosis Psych: alert, oriented, cognitive function intact, cooperative with exam. Results Labs - TSH: Normal ASSESSMENT AND PLAN: Assessment & Plan 1. Idiopathic angioedema. - Chronic tongue swelling has not responded to the cessation of losartan or steroid treatment. - Physical exam findings and previous TSH test results are normal. - Referral to Dr. Arriaga, an brand sales manager specializing in allergic reactions and chronic angioedema, will be made for further evaluation. A blood test will be conducted to rule out amyloidosis. - Continue the prednisone prescribed by the ER. 2. Idiopathic peripheral neuropathy. - Increased leg pain has led to the patient taking extra gabapentin. - Gabapentin has been effective in managing the neuropathic pain. - Discussion about increasing the gabapentin dosage to better manage the pain was discussed with Dr. Jarrett who stated we will increase her gabapentin to 800 mg 1 tab every 8 hours. I explicitly explained to her she cannot take this prescription outside of the directions given. Under no circumstance can she take 4 pills at one time, again is to only take as prescribed, may skip a dose if needed but cannot take more than prescribed. - Prescription for increased gabapentin dosage will be sent to pharmacy and approved for early refill. 3. Essential Hypertension - Blood pressure readings are within the normal range, with systolic values of 102, 126, and 129. - Physical exam findings indicate normal heart sounds and normal sinus rhythm. - Patient advised to discontinue the current blood pressure medication as the readings are excellent. - No further blood pressure medication needed. 4. Stage 3a CKD -stable, continue to monitor. Consider given neuropathy, CKD, angioedema. 5. Tardive dyskinesia -stable, following with psych. Follow-up: 07/10/2025. documented in this encounter [facility] 06-05-2025 History of Presen t illness Narrative Images from the original note were not included. aYrelis Swenson is a 55 y.o. female presents with chief complaint of Medication Reaction HPI: HPI History of Present Illness The patient presents for evaluation of tongue swelling. She reports experiencing tongue swelling for the past 4 months, which she attributes to an allergic reaction to losartan. She has been on losartan for over 5 years and recently started Ingrezza, but the tongue swelling predates the start of Ingrezza. The swelling is generalized across her tongue, but it does not affect her voice or cause drooling. She is able to swallow saliva and consume food and beverages without difficulty. She also mentions occasional tenderness in her lips. To manage the swelling, she takes 4 doses of Benadryl. She has tardive dyskinesia and is under the care of a psychiatrist. She was previously on Abilify for depression, which led to the development of tardive dyskinesia. Constitutional: no fever, chills ENT: denies ear pain, eye pain, nasal drainage, sore throat Respiratory: no cough, wheeze, or shortness of breath. Cardiac: no chest pain, no edema, no palpitations, dizziness or fainting Neurologic: +TD I have reviewed and reconciled the history and medication list with the patient today. HISTORIES: PAST MEDICAL HISTORY: Past Medical History: Diagnosis Date Arthritis Bipolar [...] Daily Austedo XR 36 mg, Oral, Daily ezetimibe (ZETIA) 10 mg, Oral, Daily gabapentin (Neurontin) 600 MG tablet TAKE 1 TABLET BY MOUTH EVERY MORNING, THEN HALF A TABLET BY MOUTH IN THE AFTERNOON AND TAKE 1.5 TABLET BY MOUTH EVERY NIGHT AT BEDTIME hydroCHLOROthiazide (HYDRODiuril) 25 MG tablet TAKE 1 TABLET BY MOUTH DAILY IN THE MORNING hydrOXYzine HCl (ATARAX) 50 mg, Oral, 2 times daily PRN ibuprofen 600 MG tablet Every 8 hours PRN sertraline (ZOLOFT) 100 mg, Oral, Daily valbenazine tosylate (Ingrezza) 80 MG capsule 1 capsule, Nightly ALLERGIES: Allergies Allergen Reactions Losartan Angioedema Swelling of tongue Amoxicillin Hives Bupropion Other Reaction(s): caused made me feel weird drowsiness, lack of motivation Oxycodone GI intolerance PHYSICAL EXAM: Visit Vitals BP 102/70 Pulse 80 Wt 192 lb SpO2 95% BMI 31.95 kg/m OB Status Postmenopausal Smoking Status Never BSA 2 m BP Readings from Last 3 Encounters: 06/05/25 102/70 05/21/25 110/60 05/01/25 110/68 Wt Readings from Last 3 Encounters: 06/05/25 192 lb 05/21/25 192 lb 9.6 oz 05/01/25 193 lb Physical Exam Physical Exam General Examination: alert, oriented, normal affect, well-appearing, in no acute distress, well developed, well nourished. Head: normocephalic, atraumatic Eyes: sclera non-icteric Ears: auditory canal clear, tympanic membrane intact, clear Oral Cavity: no lesions, mucosa moist, tongue mildly edematous, no lip edema, no erythema, no hot potatoe voice, handling secretions well, no resp distress Throat: clear, symmetrical rise of soft palate and uvula, no erythema or exudate Lymph Nodes: no cervical adenopathy Heart: regular rate and rhythm, S1, S2 normal Lungs: clear to auscultation bilaterally. No wheezes, rales, rhonchi. Extremities: no edema, no cyanosis Psych: alert, oriented, cognitive function intact, cooperative with exam. Results ASSESSMENT AND PLAN: Assessment & Plan 1. Tongue swelling. - The tongue swelling has persisted for approximately four months. - No new medications have been started recently except for Ingrezza, which was initiated after the onset of tongue swelling. - The patient will discontinue losartan and start a course of prednisone for 8 days, with a tapering dosage regimen. Prednisone is expected to help reduce the swelling. - After completing the prednisone course, the patient will monitor her blood pressure daily and record the readings. A follow-up appointment is scheduled for 3 weeks. If she experiences difficulty swallowing saliva, speech impairment, or inability to swallow, she should seek immediate medical attention at the emergency room. 2. Tardive dyskinesia. - The patient reports that her tardive dyskinesia is driving her crazy. - Physical examination confirms that the tongue swelling is not affecting her lips or voice. - She is currently taking Ingrezza for tardive dyskinesia, as prescribed by her psychiatrist. - The patient will continue this medication as prescribed. - She is advised to discuss this with her psychiatrist. Follow-up - A follow-up appointment is scheduled for 3 weeks from now. documented in this encounter [facility] 05-21-2025 History of Presen t illness Narrative Images from the original note were not included. 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 female who presents for evaluation of tardive dyskinesias. Medical history includes arthritis, burning mouth syndrome, COVID-19, depression, GERD, hyperlipidemia, hypertension, migraine headaches, sleep apnea - untreated, and TIA. She is also diagnosed with bipolar affective disorder and generalized anxiety. She follows with behavioral health who referred her to us for tardive dyskinesia. She is on hydroxyzine and valbenazine. In the past she has been on sertraline, Abilify and venlafaxine. She last saw Dr Flores in 04/2023 for ADD, neuropathy and migraines. She has constant involuntary movement of her tongue and right leg. Her tongue swells up and she has a hard time talking. She takes benadryl for the tongue swelling which helps. She denies any twitching of her eye. If she thinks about it she can stop it sometimes. If she has something in her mouth it does not occur. She is now having issues with the movement interfering with sleep. The mouth and leg movement started at the same time. When she walks her right hand will fist and sometimes her thumb will extend. Her right face will droop at times. The movement is not worse at any particular time of day. She denies any definite triggers. She started ingrezza in 01/2025 and it seemed to help initially but not so much now. She tried to stop all her medications for a month with no difference in her symptoms. She is now back on them. Abilify was stopped in 04/2024. She does feel like she has balance issues that are more notable in the evening. No falls reported. She has neuropathy but denies any new paresthesias. She takes gabapentin and states the neuropathy is controlled. Headaches are rare. CURRENT MEDICATIONS: ALLERGIES/DISCONTINUE MEDICATIONS Current Outpatient Medications Medication Instructions Acetaminophen (TYLENOL 8 HOUR PO) Aspirin Low Dose 81 mg, Daily atorvastatin (LIPITOR) 80 mg, Daily ezetimibe (ZETIA) 10 mg, Oral, Daily gabapentin (Neurontin) 600 MG tablet TAKE 1 TABLET BY MOUTH [...] DAILY sertraline (ZOLOFT) 100 mg, Oral, Daily valbenazine tosylate (Ingrezza) 80 MG capsule 1 capsule, Nightly Allergies Allergen Reactions Acetaminophen GI intolerance Amoxicillin Hives Bupropion Other Reaction(s): caused made me feel weird drowsiness, lack of motivation Oxycodone GI intolerance There are no discontinued medications. PAST MEDICAL HISTORY: SURGICAL/SOCIAL/FAMILY HISTORY DEPRESSION SCREEN: Past Medical History: Diagnosis Date Arthritis SHELDON [...] SURGICAL HISTORY laparoscopy OTHER SURGICAL HISTORY 08/2022 tumzora galeck ROTATOR CUFF REPAIR Right 2017 ROTATOR [...] left Psychiatric/Behavioral: Positive for sleep disturbance. OBJECTIVE: 05/01/2025 2:50 PM 04/04/2025 3:01 PM 03/12/2025 1:49 PM Vitals BMI 33.13 kg/m2 34.5 kg/m2 BSA (m2) 1.99 m2 2.03 m2 Systolic 110 131 118 Diastolic 68 96 78 Heart Rate 89 88 100 SpO2 98 % Resp 16 Weight (lb) 193 201 Visit Report Report Report Report EXAM: Neurological Exam Mental Status Awake, alert and oriented to person, place and time. Recent and remote memory are intact. Speech is normal. Language is fluent with no aphasia. Attention [...] XII: Tongue midline without atrophy or fasciculations. Sensory Light touch is normal in upper and lower extremities. Pinprick is normal in upper and lower extremities. Temperature is normal in upper and lower extremities. Vibration is normal in upper and lower extremities. Coordination Right: Fnmcky-zm-bvuo normal. Rapid alternating movement normal. Ohil-og-jhuh normal.Left: Mpduba-fx-ioqn normal. Rapid alternating movement normal. Mgha-zy-wxwo normal. Gait Normal casual, toe, heel and [...] who referred her to us for tardive dyskinesia. She is on hydroxyzine and valbenazine. She has persistent movement in her mouth as well as her right side with recent involvement of her right arm. She states the Ingrezza helped initially but not as much recently. We will change her to Austedo to see if this gives her more relief. PLAN: DC Ingrezza and start Austedo 36mg XR We can consider baclofen I counseled the patient on the possible diagnosis, prognosis, and possible treatment options. I will see the patient back in 4-6 weeks, or sooner if needed, to make further recommendations Diagnoses and all orders for this visit: Tardive dyskinesia - Deutetrabenazine ER (Austedo XR) 36 MG tablet sustained-release 24 hour; Take 36 mg by mouth Daily documented in this encounter [facility] 04-04-2025 History of Presen t illness Narrative Images from the original note were not included. Subjective Patient ID: Yarelis Swenson (: 1970) is a 55 y.o. female who presents for Hypertension. History of Present Illness The patient presents for evaluation of elevated blood pressure, tongue twitching, and neuropathy. She has been experiencing elevated blood pressure readings, with a systolic reading of 190 upon returning home yesterday. Her diastolic reading was 105 this morning. She reported no associated headaches or chest pain but did experience dizziness yesterday. She had an episode of chest pain approximately a month ago, which necessitated a visit to the emergency room where her blood pressure was recorded as 143/75. She also reported foot pain and stress at work yesterday. Her blood pressure readings have varied, with a reading of 128/94 this morning, 118/86 an hour ago, 133/90 yesterday, and 171/108 last night. She took her blood pressure medication and 2 anxiety pills last night, which seemed to lower her blood pressure. She has not been adhering to her prescribed regimen of hydrochlorothiazide and losartan 25 mg daily due to a persistent tongue twitch, which she suspected might be a side effect of the medications. However, the twitching has persisted for the past 6 months even after discontinuing the medications. She resumed her blood pressure medications yesterday evening. She has been experiencing a persistent tongue twitch for the past 6 months, which she attributes to Abilify. She is currently on Ingrezza and has an appointment with Dr. Flores next month. She has been experiencing a burning sensation in her feet for over a year, which she suspects may be due to neuropathy. The symptoms are constant and include tingling. She is currently on gabapentin 300 mg, taking one capsule in the morning and afternoon, and three at night, but does not believe it is providing relief. She takes hydroxyzine for anxiety and has an adequate supply. Current Outpatient Medications Medication Instructions Acetaminophen (TYLENOL 8 HOUR PO) Aspirin Low Dose 81 mg, Daily atorvastatin (LIPITOR) 80 mg, Daily ezetimibe (ZETIA) 10 mg, Oral, Daily famotidine (PEPCID) 20 mg, Every 24 hours hydroCHLOROthiazide (HYDRODiuril) 25 MG tablet TAKE 1 TABLET BY MOUTH DAILY IN THE MORNING hydrOXYzine HCl (ATARAX) 50 mg, Oral, 2 times daily PRN ibuprofen 600 MG tablet Every 8 hours PRN losartan (Cozaar) 25 MG tablet TAKE 1 TABLET BY MOUTH ONCE DAILY sertraline (ZOLOFT) 100 mg, Oral, Daily valbenazine tosylate (Ingrezza) 80 MG capsule 1 capsule, Oral, Nightly, VO script given 02/12 Allergies Allergen Reactions Acetaminophen GI intolerance Amoxicillin Hives Bupropion Other Reaction(s): caused made me feel weird drowsiness, lack of motivation Oxycodone GI intolerance Patient Active Problem List Diagnosis Bipolar affective disorder, currently depressed, moderate (CMS/HCC) Generalized anxiety disorder (CMS/HCC) Cognitive impairment Esophageal erosions B12 deficiency Adrenal disease (CMS/HCC) Fatty liver Functional visual loss (CMS/HCC) Moderate episode of recurrent major depressive disorder (CMS/HCC) Obstructive sleep apnea syndrome Peripheral neuropathy Restless legs GERD (gastroesophageal reflux disease) Prediabetes Essential hypertension (CMS/HCC) Pharyngoesophageal dysphagia Porokeratosis Tear of left rotator cuff Pure hypercholesterolemia (CMS/HCC) Primary osteoarthritis involving multiple joints History of multiple strokes History of migraine headaches Mouth sores Tardive dyskinesia Hx of high risk medication treatment Review of Systems Constitutional: Negative for chills, fatigue and fever. Cardiovascular: Negative for chest pain, palpitations and leg swelling. Neurological: Positive for dizziness. Negative for light-headedness and headaches. Burning sensation bilateral feet Objective Vital signs: BP (!) 131/96 (Patient Position: Sitting) Pulse 88 Resp 16 SpO2 98% Physical Exam Constitutional: Appearance: Normal appearance. HENT: Head: Normocephalic. Mouth/Throat: Mouth: Mucous membranes are moist. Comments: Uncontrolled movement of tongue Eyes: Pupils: Pupils are equal, round, and reactive to light. Cardiovascular: Rate and Rhythm: Normal rate and regular rhythm. Pulmonary: Effort: Pulmonary effort is normal. Breath sounds: Normal breath sounds. Skin: General: Skin is warm and dry. Neurological: Mental Status: She is alert and oriented to person, place, and time. Psychiatric: Mood and Affect: Mood normal. Assessment/Plan Assessment & Plan 1. Elevated blood pressure. - Blood pressure readings have been consistently elevated, with recent measurements including 139/102, 172/108, and 131/96. - She has not been taking her hydrochlorothiazide and losartan 25 mg as prescribed. - Advised to resume antihypertensive medications, including hydrochlorothiazide and losartan 25 mg once daily. It may take up to 7 days to observe any changes in blood pressure. - Instructed to monitor blood pressure once or twice daily until Wednesday of next week and report at least 5 to 7 readings. If severe headaches or vision changes occur within the next 7 days, immediate medical attention at the emergency room is advised. 2. Neuropathy. - Reports a persistent burning sensation and tingling in her feet, ongoing for over a year. - Currently taking gabapentin 300 mg: one capsule in the morning, one in the afternoon, and three at night. - Dosage of gabapentin will be adjusted to 600 mg in the morning, 300 mg in the afternoon, and 900 mg at night. - Advised to provide an update on her response to this adjusted dosage along with her blood pressure readings. 3. Anxiety. - Currently on hydroxyzine for anxiety and has sufficient supply. - No changes to the current anxiety medication regimen. Problem List Items Addressed This Visit Essential hypertension (CMS/HCC) - Primary Health Maintenance Topic Date Due Influenza Vaccine (Season Ended) 2025 Mammogram 03/05/2026 Cervical Cancer Screening 02/14/2030 Colorectal Cancer Screening 02/24/2034 Immunization History Administered [...] follow-up. Jacquie Yip NP documented in this encounter [facility] 02-23-2025 History of Presen t illness Narrative Images from the original note were not included. Yarelis Swenson is a 55 y.o. female presents with chief complaint of ER Follow-up ([facility] 02/20/2025 for chest pain. Patient left before complete work-up was done.) HPI: History of Present Illness The patient presents for evaluation of chest pain. She experienced an episode of chest pain that began a few hours prior to her arrival at the emergency room. The onset of the pain occurred during a period of rest. Upon reaching the ER, the intensity of the pain had significantly diminished. She did not take any medication for it except aspirin. She is not a smoker and does not have heart disease. She reports feeling fatigued and attributes this to her current state of high stress. She is currently seeking employment and is dealing with car-related issues. Additionally, she has been in communication with Social Security Disability for the past 3 days. She is on Zoloft. She is currently on a regimen of hydroxyzine for anxiety and stress, although she did not take a dose today, but she took one on that day. Supplemental Information She is on 60 mg of medication for tardive dyskinesia, which she takes only at night. SOCIAL HISTORY She does not smoke. I have reviewed and reconciled the history and medication list with the patient today. Flowsheet Row Documentation from 02/21/2025 in [facility] with Tena Corrigan MA Hospital Information ED, Hospital or Correction Facility Discharge? ED Patient has been contacted within 2 days of being seen in the ED Yes Diagnosis chest pain Discharge Date 02/20/25 [Patient left against medical advice] Discharged To: Home Setting Discharge Hospital [facility] Engagement Call Start Time 1052 Admission Date 02/20/25 Medications Discharge medications reviewed and reconciled from hospital? Not applicable Medication Comments No meds prescribed Appointments Does the patient have a primary care provider? Yes Nursing Interventions Verified appointment date/time/provider [scheduled 02/23/2025 with Rhiannon Zarate NP] Self Management Patient Teaching Wrap Up HISTORIES: PAST MEDICAL HISTORY: Past Medical History: [...] 11/02/2022 MR ANGIOGRAM HEAD WO IV CONTRAST [facility] DATA LEGACY MR ANGIOGRAM HEAD WO IV [...] (PEPCID) 20 mg, Every 24 hours gabapentin (NEURONTIN) 1,200 mg, Oral, Nightly, TAKE 1 CAPSULE BY MOUTH EVERY MORNING AND AFTERNOON AND TAKE TWO CAPSULES BY MOUTH EVERY NIGHT AT BEDTIME hydroCHLOROthiazide (HYDRODiuril) 25 MG tablet TAKE 1 TABLET BY MOUTH DAILY IN THE MORNING hydrOXYzine HCl (ATARAX) 50 mg, Oral, 2 times daily PRN ibuprofen 600 MG tablet Every 8 hours PRN Ingrezza 80 mg, Oral, Daily losartan (Cozaar) 25 MG tablet TAKE 1 TABLET BY MOUTH ONCE DAILY sertraline (ZOLOFT) 100 mg, Oral, Daily Valbenazine Tosylate (Ingrezza) 60 MG capsule 1 capsule, Nightly ALLERGIES: Allergies Allergen Reactions Acetaminophen GI intolerance Amoxicillin Hives Bupropion Other Reaction(s): caused made me feel weird drowsiness, lack of motivation Oxycodone GI intolerance PHYSICAL EXAM: Visit Vitals BP 128/82 (BP Location: Left arm, Patient Position: Sitting) Pulse 64 Ht 5' 4 Wt 202 lb SpO2 99% BMI 34.67 kg/m OB Status Postmenopausal Smoking Status Never BSA 2.03 m BP Readings from Last 3 Encounters: 02/23/25 128/82 02/14/25 122/74 02/12/25 118/82 Wt Readings from Last 3 Encounters: 02/23/25 202 lb 02/14/25 204 lb 02/12/25 207 lb Physical Exam HENT: Mouth/Throat: Mouth: Mucous membranes are moist. Neck: Vascular: No carotid bruit. Cardiovascular: Rate and [...] Content: Thought content normal. Results Laboratory Studies Blood work was normal. Thyroid test was normal. Testing EKG was normal. ASSESSMENT AND PLAN: Assessment & Plan 1. Chest pain, unspecified type (Primary) ER report reviewed. EKG and labs reviewed. Her blood pressure and heart rate are within normal limits. She feels like the anxiety caused this. She denies exertional pain or shortness of breath. She is advised to take hydroxyzine as needed for stress and anxiety. If she experiences another episode of chest pain, she should consider taking hydroxyzine. If the pain intensifies or persists, she is advised to seek immediate medical attention at the hospital. Additionally, engaging in outdoor activities such as walking and getting fresh air can help alleviate stress and anxiety. 2. Generalized anxiety disorder (CMS/HCC) As above. documented in this encounter [facility] 01-18-2025 History of Presen t illness Narrative [...] SURGICAL HISTORY laparoscopy OTHER SURGICAL HISTORY 08/2022 tumzora galeck ROTATOR CUFF REPAIR Right 2017 ROTATOR [...] 3 weeks documented in this encounter [facility] 01-02-2025 History of Presen t illness Narrative Images from the original note were not included. Yarelis Swenson is a 54 y.o. female presents with chief complaint of Routine OV, ER Follow-up (12/28/2024 [facility] dx: chest pain, Influenza A. [...] tablets per month will be sent to [facility] pharmacy. - gabapentin (Neurontin) 300 MG capsule; Take [...] tablets per month will be sent to [facility] pharmacy. - gabapentin (Neurontin) 300 MG capsule; Take [...] above issues. documented in this encounter [facility] 12-21-2024 History of Presen t illness Narrative Images from the original note were not included. Yarelis Swenson is a 54 y.o. female presents for Medication Management. HPI: Patient is here for medication follow up. Patient has improved since last appt. 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 Patient was seen Face to Face, Reviewed chart documents and documentation, Visit time : 45min 3 weeks documented in this encounter [facility] 12-13-2024 History of Presen t illness Narrative [...] and Time Memory/Concentration Short term intact and nursing home intact Insight/Judgement Good OBJECTIVE: Visit Vitals [...] assess movements documented in this encounter [facility] 12-06-2024 Evaluation note Diagnosis Onset Date Resolution Bilateral primary osteoarthritis of knee acute December 062024 1:36pm [facility] Work Phone: 1(656) 139-466912-20-2024 History of Present illness Narrative* Rhiannno Zarate NP - 11/17/2024 8:15 AM EST Images from the original note were not included. Yarelis Swenson is a 54 y.o. female presents with chief complaint of needing exam to apply for disability (Pt has not started paperwork for this. Hx of Stroke, anxiety and pain. She does follow withRoverto Carrizales NP for psych) HPI: History of Present Illness The patient presents for evaluation of disability paperwork. She is seeking assistance in initiating the process for disability due to her medical history, which includes a stroke, anxiety, and chronic pain. She has been unemployed following her termination from [employer] due to her inability to meet the [...] 11/02/2022 MR ANGIOGRAM HEAD WO IV CONTRAST [facility] DATA LEGACY MR ANGIOGRAM HEAD WO IV [...] to initiate the process by contacting an oil developer or applying online, gathering her medical records, [...] Orthopaedic Surgery; Future documented in this encounterSS[facility] [id number] History of Present illness Narrative* Jacquie Yip [...] insurance does not cover the RX at [facility]. She is currently on gabapentin [...] will be provided and sent to [facility]. It isnoted that the treatment may take months to show improvement. Follow with Dr. Cruz as needed. 2. Restless leg syndrome. The gabapentin dosage will be increased to 1200 mg daily, divided into 300 mg in the morning, 300 mg in the afternoon, and 600 mg at night. A 30-day supply will be provided and sent to [facility]. The patient is advised to give the [...] Jacquie Yip NP documented in this encounterSSM [id number] History of Present illness Narrative* Roverto Carrizales, CAREER LAW CLERK-PHOTOGRAPHIC EQUIPMENT MECHANIC - 09/12/2024 9:00 AM EDT Images from [...] 11/02/2022 MR ANGIOGRAM HEAD WO IV CONTRAST [facility] DATA LEGACY MR ANGIOGRAM HEAD WO IV [...] and Time Memory/Concentration Short term intact and nursing home intact Insight/Judgement Good OBJECTIVE: Visit Vitals BP [...] up : 3months documented in this encounterSSM [id number] [facility] Consult note Author Elkin Mcmahon [facility] January 22, 2024 12:23pm Note Date/Time January 22, 2024 12:18pm [facility] [address] [place] [address] Neurology Consult Note Signed Patient: Yarelis Swenson MR#: [id number] : 1970 Acct:[id number] Age/Sex: 53 / F Adm Date: 4 Loc: Room: [address] [place] [address] Type: ADM IN Attending Dr: Michael Wells MD Copies to: MD Julio C Vides MD Steven Benedict, MD~ HPI Consult Date: 01/22/24 Executive Recruiter: Elkin Mcmahon MD Reason for consult: Confusion [...] aspirin. The patient was treated at the [facility] for these symptoms. This record [...] negative unless noted below or in HPI [facility] Medical History Neuroma of right leg Rotator [...] Danielito Haro M.D.01/21/2024 12:19 PM Dictation Location: [place] [address] 01/21/24 11:34 IMPRESSION: There are [...] Alicia Tian M.D.01/21/2024 11:56 AM Dictation Location: [place] [address] Head CTA 01/21/24 11:38 IMPRESSION: There is mild irregular narrowing of the P1 and P2 segments of the posterior cerebral arteries bilaterally which may be atherosclerotic or less likely secondary to vasculitis. No evidence of focal stenosis, aneurysmal dilatation, dissection or occlusion, otherwise. Impression dictated by: Alicia Tian M.D.01/21/2024 12:04 PM Dictation Location: [place] [address] Brain MRI 01/21/24 12:49 IMPRESSION: No acute intracranial process. Findings consistent with chronic small vessel ischemic changes. Impression dictated by: Danielito Haro M.D.01/21/2024 5:57 PM Dictation Location: [place] [address] Assessment/Plan (1) Acute CVA (cerebrovascular accident): Assessment/Problem [...] signed by MD Elkin Mcmahon> 01/22/24 1223 [facility] Work Phone: 1(809) 450-549202-23-2024 History and physical note Author Michael Wells [facility] January 21, 2024 5:39pm Note Date/Time January 21, 2024 3:50pm [facility] [address] [place] [address] Hospitalist H&P Signed Patient: Yarelis Swenson MR#: [id number] : 1970 Acct:[id number] Age/Sex: 53 / F Adm Date: 4 Loc: 3T Room: [address] [place] [address] Type: ADM IN Attending Dr: Michael Wells MD Copies to: MD Andrew Vides DO,DUSTIN Jarrett MD~ HPI DATE OF EXAMINATION: 01/21/24 [...] of care and confirmed it with the resident/student/NATURAL RESOURCES FACULTY MEMBER. Patient is a 53-year-old female who initially [...] nontender, nondistended Neuro: CN II-XII intact. Normal vbqo-fo-hujp testing bilaterally. Normal sensation to the bilateral [...] for DVT prophylaxis Regular diet Full code [facility] Medical History Neuroma of right leg Rotator [...] % (Auto) 25.9 % (.) 01/21/24 11:39 [place] % (Auto) 5.8 % (.) 01/21/24 11:39 Eos % (Auto) 1.4 % (.) 01/21/24 11:39 Baso % (Auto) 0.6 % (.) 01/21/24 11:39 Nucleat RBC Rel Count 0.1 /100 WBC (0-0.5) 01/21/24 11:39 Neut # (Auto) 5.2 x10E3/uL (1.8-7.7) 01/21/24 11:39 Lymph # (Auto) 2.0 x10E3/uL (1.00-4.8) 01/21/24 11:39 [place] # (Auto) 0.5 x10E3/uL (0.0-0.8) 01/21/24 11:39 [...] pH 7.5 (5.0-9.0) 01/21/24 12:01 Ur Specific [place] 1.050 (1.001-1.030) H 01/21/24 12:01 Urine Protein [...] 153 9 Signed By: <Electronically signed by RES Andrew Cordero> 01/21/24 1550 <Electronically signed by Michael Wells MD> 01/21/24 1738 [facility] Work Phone: 1(375) 607-789408-24-2022 Evaluation note* Encounter Date Diagnosis Assessment Notes [...] She understands and agrees with the plan. [facility] Other 07-28-2022 Evaluation note* Encounter Date Diagnosis [...] risk of hypokalemia including cardiac arrhythmias and [facility] Other 06-11-2022 Evaluation note* Encounter Date Diagnosis [...] symptoms do not improve in 7 days. [facility] Other 01-13-2022 Evaluation note* Encounter Date Diagnosis [...] within normal limits. I prescribed oral ergocalciferol. [facility] Other Evaluation noteNo assessment information available [facility] Work Phone: Evaluation noteNo InformationNortOSS Health Signdat Other Evaluation note* Diagnosis Onset Date Resolution Status Acute CVA (cerebrovascular accident) acute [facility] Work Phone: Evaluation note* Diagnosis Onset Date Resolution Status Acute CVA (cerebrovascular accident) resolved [facility] Work Phone: Evaluation note* Diagnosis Onset Date Resolution Status Acute glossitis noneactive [facility] Work Phone: Evaluation note* Diagnosis Bipolar [...] itis of knee acute December 06 1:36pm [facility] Work Phone: Evaluation note* Diagnosis Bipolar affective [...] neoplasm of breast documented in this encounter [facility]* Diagnosis Bipolar affective disorder, [...] to drugs [facility]* Diagnosis Bipolar affective disorder, currently depressed, moderate (CMS/HCC)- Primary Bipolar I disorder, most recent episode (or current) depressed, moderate Multiple lacunar infarcts (CMS/HCC) Cognitive impairment Unspecified persistent mental disorders due to conditions classified elsewhere Chest pain, unspecified type Gastroesophageal reflux disease, unspecified whether esophagitis present Hypertension, unspecified type (CMS/HCC) Chest pain, unspecified type- Primary Generalized anxiety disorder (CMS/HCC) Generalized anxiety disorder [...] whether esophagitis present Hypertension, unspecified type (CMS/HCC) Essential hypertension (CMS/HCC)- Primary Unspecified essential hypertension Idiopathic peripheral neuropathy Unspecified hereditary and idiopathic peripheral neuropathy Tardive dyskinesia Subacute dyskinesia due to drugs [facility] [...] Diagnosis Bipolar affective disorder, currently depressed, moderate (HCC)- Primary Bipolar I disorder, most recent episode (or current) depressed, moderate Multiple lacunar infarcts (HCC) Cognitive impairment Unspecified persistent mental disorders due to conditions classified elsewhere Chest pain, unspecified type Gastroesophageal reflux disease, unspecified whether esophagitis present Hypertension, unspecified type Tardive dyskinesia- Primary Subacute dyskinesia due to drugs [facility]* Diagnosis Bipolar affective disorder, currently depressed, moderate (HCC)- Primary Bipolar I disorder, most recent episode (or current) depressed, moderate Multiple lacunar infarcts (HCC) Cognitive impairment Unspecified persistent mental disorders due to conditions classified elsewhere Chest pain, unspecified type Gastroesophageal reflux disease, unspecified whether esophagitis present Hypertension, unspecified type Essential hypertension- Primary Unspecified essential hypertension Tongue swelling Swelling, mass, or lump in head and neck [facility]* Diagnosis Bipolar affective disorder, currently depressed, moderate (HCC)- Primary Bipolar I disorder, most recent episode (or current) depressed, moderate Multiple lacunar infarcts (HCC) Cognitive impairment Unspecified persistent mental disorders due to conditions classified elsewhere Chest pain, unspecified type Gastroesophageal reflux disease, unspecified whether esophagitis present Hypertension, unspecified type Bipolar affective disorder, currently depressed, moderate (HCC) Bipolar I disorder, most recent episode (or current) depressed, moderate Tongue swelling- Primary Swelling, mass, or lump in head and neck Tardive dyskinesia Subacute dyskinesia due to drugs Essential hypertension Unspecified essential hypertension documented in this encounter [facility] Diagnosis Bipolar affective disorder, currently depressed, moderate (HCC)- Primary Bipolar I disorder, most recent episode (or current) depressed, moderate Multiple lacunar infarcts (HCC) Cognitive impairment Unspecified persistent mental disorders due to conditions classified elsewhere Chest pain, unspecified type Gastroesophageal reflux disease, unspecified whether esophagitis present Hypertension, unspecified type Tongue swelling- Primary Swelling, mass, or lump in head and neck Tardive dyskinesia Subacute dyskinesia due to drugs Essential hypertension Unspecified essential hypertension Idiopathic angioedema, initial encounter Stage 3a chronic kidney disease ([facility]) Idiopathic peripheral neuropathy Unspecified hereditary and idiopathic peripheral neuropathy documented in this encounter [facility] Diagnosis Bipolar affective disorder, currently depressed, moderate (HCC)- Primary Bipolar I disorder, most recent episode (or current) depressed, moderate Multiple lacunar infarcts (HCC) Cognitive impairment Unspecified persistent mental disorders due to conditions classified elsewhere Chest pain, unspecified type Gastroesophageal reflux disease, unspecified whether esophagitis present Hypertension, unspecified type Angioedema, initial encounter- Primary Chronic rhinitis Flexural atopic dermatitis Other atopic dermatitis and related conditions Atopic dermatitis in adult documented in this encounter [facility]* Diagnosis Bipolar affective disorder, currently depressed, moderate (HCC)- Primary Bipolar I disorder, most recent episode (or current) depressed, moderate Multiple lacunar infarcts (HCC) Cognitive impairment Unspecified persistent mental disorders due to conditions classified elsewhere Chest pain, unspecified type Gastroesophageal reflux disease, unspecified whether esophagitis present Hypertension, unspecified type Essential hypertension- Primary Unspecified essential hypertension Pure [...] to drugs documented in this encounter [facility]* Diagnosis Bipolar affective disorder, currently depressed, moderate (HCC)- Primary Bipolar I disorder, most recent episode (or current) depressed, moderate Multiple lacunar infarcts (HCC) Cognitive impairment Unspecified persistent mental disorders due to conditions classified elsewhere Chest pain, unspecified type Gastroesophageal reflux disease, unspecified whether esophagitis present Hypertension, unspecified type Tardive dyskinesia- Primary Subacute dyskinesia due to drugs Migraine without aura and without status migrainosus, not intractable documented in this encounter [facility] Author Ayaan Pulido [facility] February 25, 2024 12:31pm Note Date/Time February 25, 2024 12: 31pm [facility] [address] [place] [address] Gastroenterology H&P Signed Patient: Yarelis Swenson MR#: [id number] : 1970 Acct:[id number] Age/Sex: 54 / F Adm Date: 4 Loc: Room: Type: [facility] Attending Dr: Ayaan Pulido MD Copies [...] signed by Ayaan Pulido MD> 02/25/24 1231 [facility] Work Phone: History general Narrative - Reported* [...] rotator cuff 07/2020 Hospitalization History see above Abzena Other Reason for referral (narrative)No reason for referral information [facility] Work Phone: Reason for visit Narrative* Consultation (Routine) - Closed Specialty Diagnoses / Procedures Referred By Contac t Referred To Contact Neurology Diagnoses Drug induced subacute dyskinesia Procedures MI UNLISTED EVALUATION AND MANAGEMENT SERVICE Roverto Carrizales, MARK-PHOTOGRAPHIC EQUIPMENT MECHANIC [address] [facility] [address] [place] [address] Phone: tel: fax: Masoud Flores MD [address] [facility] [address] [place] [address] Phone: tel: fax: Referral ID Status Reason Start Date Expiration Date Visits Re quested Visits Authorized [id number] Closed 03/12/2025 09/08/2025 1 1 [facility] Healthcare Summary Purpose Family History No Family History [...] right knee, initial encounter (S89.91XA) Referral Organization [facility] [place] Referring Provider First Name Abel Referring Provider Last Name Savage Referring Provider Specialty Nurse Shay lin Referred Organization [facility] Referred Address [address],[place], [place],[address] Referred Provider Specialty Sport Medici ne Referral [...] PAIN, N X December 06, 2024 1:36pm Chief Complaint Admit Date allergic reaction, hard to swallow, SOB June 24, 2025 5:22pm Additional Source Comments INFORMATION SOURCE (unrecogn ized section and content) DATE CREATED AUTHOR 06/28/2018 [facility] Healthcare DATE CREATED AUTHOR AUTHOR'S ORGANIZ ATION 2020 [facility] DATE CREATED AUTHOR AUTHOR'S ORGANIZ ATION 10/19/2022 [facility] Me dical Specialist DATE CREATED AUTHOR AUTHOR'S ORGANIZ ATION 11/05/2022 [facility] DATE CREATED AUTHOR AUTHOR'S ORGANIZ ATION 05/11/2023 [facility] DATE CREATED AUTHOR AUTHOR'S ORGANIZ ATION 07/24/2023 [facility] ical [facility] DATE CREATED AUTHOR AUTHOR'S ORGANIZ ATION 06/25/2025 [facility] DATE CREATED AUTHOR AUTHOR'S ORGANIZ ATION 07/14/2025 [facility] DATE CREATED AUTHOR AUTHOR'S ORGANIZ ATION 07/17/2025 [facility] dical Specialists EPIC REASON FOR VISIT [...] Comments Routine OV ER Follow-up 12/28/2024 [facility] dx: chest pain, Influenza A. She has dry cough, hospital prescribed Mucinex, which made symptoms worse. Taking Advil Cold & Sinus Restless Legs Requesting increase of Gabapentin Reason Comments ER Follow-up [facility] 02/20/2025 for chest pain. Patient left before complete work-up was done. Reason Comments Hypertension Reason Comments Medication Reaction Reason Comments 3 week follow up Losartan discontinue d at last office visit and advised to monitor BP. Pt stated she can't fill her gabapentin for 6 more days. Wants to know if she can get lyrica as a back up. Oral Swelling Tongue swelling. ER yesterday. Reason Comments Referral Referral from Dr Jennifer porter for tongue swelling for over 2 months pt has had no meds this morning or anything to eat or drink and its swollen up today Reason Comments 6 month follow up of chronic conditions Care Teams (unrecognized sec tion and content) [...] 21, 2024 End: January 22, 2024 MARY Gomes- Other Provider Active Start: January 21, 2024 End: January 22, 2024 Arturo Sow DO Other Provider Active Start: January 21, 2024 End: January 22, 2024 Arlene Villanueva APRN Other Provider Active St art: January 21, 2024 End: January 22, 2024 VANESSA Arriaga Other Provider Active Sta rt: January 21, 2024 End: January 22, 2024 Chely Cordon , CAREER LAW CLERK-MASTER MACHINIST-C Other Provider Active Start: January 21, 2024 End: January 22, 2024 Team Status: Active Member Role Status Dates Julio C Jarrett MD Primary Care Provider Active St art: January 22, 2024 DANIELA EtienneC Emergency Provider Active Start: January 22, 2024 Michael Wells MD Admit Provider, Atte oring Provider, Other Provider Active Start: January 22, 2024 Gina Wu Other Provider Active Start: January 22, 2024 Isela Snider DO Other Provider Active Start: January 22, 2024 Elkin Mcmahon MD Other Provider Active Start : January 22, 2024 Ru Pearce DO Other Provider Active Start: January 22, 2024 Roverto Plasencia ANP-BC Other Provider Active Start: January 22, 2024 Arturo Sow DO Other Provider Active Start: January 22, 2024 Arlene Villanueva APRN Other Provider Active St art: January 22, 2024 VANESSA Arriaga Other Provider Active Sta rt: January 22, 2024 Chely Cordon APRN-MASTER MACHINIST-C Other Provider Active Start: January 22, 2024 [...] September 11, 2024 End: September 11, 2024 Recruiter Coordinator Relationship Specialty Start Date End Date Julio C Jarrett MD [address] [place] [address] PCP - General Internal Medicine 05/04/23 Recruiter Coordinator Relationship Specialty Start Date End Date Julio C Jarrett MD [address] [place] [address] PCP - General Internal Medicine 05/04/23 Recruiter Coordinator Relationship Specialty Start Date End Date Julio C Jarrett MD [address] [place] [address] PCP - General Internal Medicine 05/04/23 Team Status: Inactive Member Role Status Teri Jarrett MD Primary Care Provider Active St art: September 29, 2024 End: September 29, 2024 Дмитрий Ríos DPM MS Attending Provider Active Start: September 29, 2024 End: September 29, 2024 Recruiter Coordinator Relationship Specialty Start Date End Date Julio C Jarrett MD [address] [place] [address] PCP - General Internal Medicine 05/04/23 Recruiter Coordinator Relationship Specialty Start Date End Date Julio C Jarrett MD [address] [place] [address] PCP - General Internal Medicine 05/04/23 Team [...] December 06, 2024 End: December 06, 2024 Recruiter Coordinator Relationship Specialty Start Date End Date Julio C Jarrett MD [address] [facility] [address] [place] [address] PCP - General Internal Medicine 05/04/23 Recruiter Coordinator Relationship Specialty Start Date End Date Julio C Jarrett MD [address] [facility] [address] [place] [address] PCP - General Internal Medicine 05/04/23 Recruiter Coordinator Relationship Specialty Start Date End Date Julio C Jarrett MD [address] [facility] [address] [place] [address] PCP - General Internal Medicine 05/04/23 Roverto Carrizales APRN-PHOTOGRAPHIC EQUIPMENT MECHANIC [address] [place] [address] [address] [place] [address] Nurse Practitioner Psychiatry 12/15/24 Recruiter Coordinator Relationship Specialty Start Date End Date Julio C Jarrett MD [address] [place] [address] PCP - General Internal Medicine 05/04/23 Roverto Carrizales, [facility] [address] [place] [address] Nurse Practitioner Psychiatry 12/15/24 Recruiter Coordinator Relationship Specialty Start Date End Date Julio C Jarrett MD [address] [place] [address] PCP - General Internal Medicine 05/04/23 Roverto Carrizales, [facility]-PHOTOGRAPHIC EQUIPMENT MECHANIC [address] [place] [address] Nurse Practitioner Psychiatry 12/15/24 Recruiter Coordinator Relationship Specialty Start Date End Date Julio C Jarrett MD [address] [place] [address] PCP - General Internal Medicine 05/04/23 Roverto Carrizales, CAREER LAW CLERK-PHOTOGRAPHIC EQUIPMENT MECHANIC [address] [place] [address] Nurse Practitioner Psychiatry 12/15/24 Recruiter Coordinator Relationship Specialty Start Date End Date Julio C Jarrett MD [address] [place] [address] PCP - General Internal Medicine 05/04/23 Roverto Carrizales, [facility] [address] [place] [address] Nurse Practitioner Psychiatry 12/15/24 Recruiter Coordinator Relationship Specialty Start Date End Date Julio C Jarrett MD [address] [place] [address] PCP - General Internal Medicine 05/04/23 Roverto Carrizales, CAREER LAW CLERK-PHOTOGRAPHIC EQUIPMENT MECHANIC [address] [facility] [address] [place] [address] Nurse Practitioner Psychiatry 12/15/24 Recruiter Coordinator Relationship Specialty Start Date End Date Julio C Jarrett MD [address] [facility] [address] [place] [address] PCP - General Internal Medicine 05/04/23 Roverto Carrizales, CAREER LAW CLERK-PHOTOGRAPHIC EQUIPMENT MECHANIC [address] [facility] [address] [place] [address] Nurse Practitioner Psychiatry 12/15/24 Recruiter Coordinator Relationship Specialty Start Date End Date Julio C Jarrett MD [address] [facility] [address] [place] [address] PCP - General Internal Medicine 05/04/23 Roverto Carrizales, CAREER LAW CLERK-PHOTOGRAPHIC EQUIPMENT MECHANIC [address] [facility] [address] [place] [address] Nurse Practitioner Psychiatry 12/15/24 Recruiter Coordinator Relationship Specialty Start Date End Date Julio C Jarrett MD [address] [facility] [address] [place] [address] PCP - General Internal Medicine 05/04/23 Roverto Carrizales, CAREER LAW CLERK-PHOTOGRAPHIC EQUIPMENT MECHANIC [address] [facility] [address] [place] [address] Nurse Practitioner Psychiatry 12/15/24 Recruiter Coordinator Relationship Specialty Start Date End Date Julio C Jarrett MD [address] [place] [address] PCP - General Internal Medicine 05/04/23 Roverto Carrizales, CAREER LAW CLERK-PHOTOGRAPHIC EQUIPMENT MECHANIC [address] [facility] [address] [place] [address] Nurse Practitioner Psychiatry 12/15/24 Team Status: Inactive Member Role Status Dates Julio C Jarrett MD Primary Care Provider Active St art: June 24, 2025 End: June 24, 2025 Ana Chamberlain MD Emergency Provider Active Star t: June 24, 2025 End: June 24, 2025 Recruiter Coordinator Relationship Specialty Start Date End Date Julio C Jarrett MD [address] [place] [address] PCP - General Internal Medicine 05/04/23 Roverto Carrizales, CAREER LAW CLERK-PHOTOGRAPHIC EQUIPMENT MECHANIC [address] [facility] [address] [place] [address] Nurse Practitioner Psychiatry 12/15/24 Recruiter Coordinator Relationship Specialty Start Date End Date Julio C Jarrett MD [address] [place] [address] PCP - General Internal Medicine 05/04/23 Roverto Carrizales, CAREER LAW CLERK-PHOTOGRAPHIC EQUIPMENT MECHANIC [address] [facility] [address] [place] [address] Nurse Practitioner Psychiatry 12/15/24 Recruiter Coordinator Relationship Specialty Start Date End Date Julio C Jarrett MD [address] [place] [address] PCP - General Internal Medicine 05/04/23 Roverto Carrizales, CAREER LAW CLERK-[facility] [address] [facility] [address] [place] [address] Nurse Practitioner Psychiatry 12/15/24 Recruiter Coordinator Relationship Specialty Start Date End Date Julio C Jarrett MD [address] [facility] [address] [place] [address] PCP - General Internal Medicine 05/04/23 Roverto Carrizales, CAREER LAW CLERK-PHOTOGRAPHIC EQUIPMENT MECHANIC [address] [facility] [address] [place] [address] Nurse Practitioner Psychiatry 12/15/24 Recruiter Coordinator Relationship Specialty Start Date End Date Julio C Jarrett MD [address] [facility] [address] [place] [address] PCP - General Internal Medicine 05/04/23 Roverto Carrizales, CAREER LAW [facility] [address] [facility] [address] [place] [address] Nurse Practitioner Psychiatry 12/15/24 Recruiter Coordinator Relationship Specialty Start Date End Date Julio C Jarrett MD [address] [facility] [address] [place] [address] PCP - General Internal Medicine 05/04/23 Roverto Carrizales, CAREER LAW CLERK-[facility] [address] [facility] [address] [place] [address] Nurse Practitioner Psychiatry 12/15/24 Goals (unrecognized section [...] BE BASED ON THE PRIMARY CLINICAL RECORDS. [facility] [employer] [facility]. provides no warranty or guarantee of the accuracy or completeness of information in this document.
--- OUTSIDE RECORDS SUMMARY | 2025-07-22 17:03 | XMS_ITS | Encounter Summary ---
Author Organization [facility] Address [address] [place] [address] Care Team Providers Care Manager Sterile Processing Name Role Phone Darnell French MD Primary Care Provider [phone] Gillian-Erum Montero BUSINESS ACCOUNT LEADER-INFORMATION SYSTEMS AUDITOR Unavailable Encounter Details Date Type Department Care Team (Late st Contact Info) Description 07/16/2025 Bamboo flowsheet [facility] [address] [place] [address] Erum Plasencia, PRECISION LENS POLISHER [address], [address] [address] Social History Tobacco Use Types Packs/Day Years [...] Allergy [address] [place] [address] Milton Arriaga MD [address] [place] [address] 08/27/2025 10:30 AM EDT Office Visit [facility] [address] [facility] [address] [place] [id number] Erum Hickman, BUSINESS ACCOUNT LEADER-INFORMATION SYSTEMS AUDITOR [address] [facility] [address] [place] [address] 10/17/2025 11:30 AM EST Office Visit [facility] [address] [place] [address] Jacquie Velasco, BUSINESS ACCOUNT LEADER-PETROLOGY TEACHER [address] [facility] [address] [place] [address] 01/10/2026 9:45 AM EST Office Visit [facility] [address] [place] [address] documented as of this encounter Visit Diagnoses Not on filedocumented in this encounter Additional Health Concerns Assessment Noted Time PHQ-9 Depression Total Score: 0 02/13/20 25 1:08 PM EDT documented as of this encounter Care Teams Manager Sterile Processing Relationship Specialty Start Date End Date Darnell French MD [address] [facility] [address] [place] [address] PCP - General Internal Medicine 05/04/23 Erum Hickman APRN-INFORMATION SYSTEMS AUDITOR [address] [facility] [address] [place] [address] Nurse Practitioner Psychiatry 12/15/24 documented as of this encounter
--- OUTSIDE RECORDS SUMMARY | 2025-07-22 17:03 | XMS_ITS | Patient Health Record ---
Author Organization [facility] Address [address] [place] [address] Care Team Providers Care Executive Administrative Assistant Name Role Phone Dillan Hollis DO Primary Care Provider Дмитрий Brown [phone] Allergies Allergen (clinical drug ingredient) Drug/Non Drug Allergy documented on EMR Reaction Allergy Type Onset Date Status Penicillin Unknown Drug Allergy Active Results Component Value Reference Range Notes XR foot LT min 3V (Not yet r eviewed by provider) Interpretation: Performing Lab: Notes/Report: Source Facility: [place] [address] XRay Report Signed Patient: LUIS SWENSON MR#: [id number] : 1970 Acct:[id number] Age/Sex: 55 / F ADM Date: 01/30/25 Loc: RAD Attending Dr: Дмитрий Remy D.P.M. Ordering Physician: Дмитрий Remy D.P.M. Date of Service: 01/30/25 Procedure(s): XR foot LT min 3V Accession Number(s): [id number] cc: JULIO C JARRETT ; Дмитрий Remy D.P.M. [place] [address] Patient Name: LUIS SWENSON MRN: [id number] date: 1970 Sex: F Assigned Patient Location: RAD Current Patient Location: RAD Accession/Order Number: [id number] Exam Date: 01/30/2025 15:44 Report Date: 01/30/2025 15:46 At the request of: ДМИТРИЙ REMY DPJake Procedure: XR foot LT min 3V [...] NO ACUTE BONY FINDINGS. Impression dictated by: Luis Cabrera M.D.01/30/2025 3:46 PM Dictation Location: [place] [address] Electronically authenticated by: [id number] Y Date: 01/30/2025 15:46 Dictated By: Luis Cabrera M.D. Signed By: 01/30/25 1548 DD/ 1546 TD/TT: Sales Order Administrator: [place] [address] XRay Report Signed Patient: MINDY SWENSON MR#: [id number] : 1970 Acct:[id number] Age/Sex: 55 / F ADM Date: 01/30/25 Loc: [facility] Attending Dr: Дмитрий Remy D.P.M. Ordering Physician: Дмитрий Remy D.P.M. Date of Service: 01/30/25 Procedure(s): XR foot LT min 3V Accession Number(s): [id number] cc: JULIO C JARRETT ; Дмитрий Remy D.P.M. [place] [address] Patient Name: LUIS SWENSON MRN: [id number] date: 1970 Sex: F Assigned Patient Location: [facility] Current Patient Location: [facility] Accession/Order Numb er: [id number] Exam Date: 01/30/2025 15:44 Report Date: 01/30/2025 15:46 At the request of: ДМИТРИЙ REMY DPM Procedure: XR foot LT min 3V LEFT FOOT - 3 views CLINICAL DATA: Foot pain, greater laterally. Previous Achilles surgery. No recent injury. COMPARISON: 06/14/2024 Weightbearing AP, la teral and oblique views were obtained. There is osteopenia. There is no acute fracture or dislocation. Mild degenerative changes are present at the first metatarsal phalangeal joint and dorsum of the tarsometatarsal join ts. There are posterior and plantar calcaneal spurs. There are no signifi cant soft tissue abnormalities. X R/XR foot LT min 3V IMPRESSION: OSTEOPENIA AND MILD DEGENERATIVE CHANGES. NO ACUTE BONY FINDINGS. Impression dictated by: Luis Cabrera M.D.01/30/2025 3:46 PM Dictation Location: [place] Electronically authe nticated by: [id number] Y Date: 01/30/2025 15:46 Dictated By: Luis Cabrera M.D. Signed By: 01/30/25 1548 DD/ 1546 TD/TT: Sales Order Administrator: Reason For Referral No Information Medications Medication SIG (Take, Route, Frequency, Duration) Notes Start Date End Date Status Crestor 20 MG 1 tablet Orally Once a day for 30 day(s) Active Gabapentin 300 MG 1 capsule Orally Onc e a day for 30 day(s) prn Active ARIPiprazole 5 MG Oral for 30 Days Active Vitamin D3 75 MCG (3000 UT) 1 tablet Ora lly Once a day for 90 days 05/05/2024 Active Clopidogrel Bisulfate 75 MG Oral for 30 Days Active hydroCHLOROthiazide 12.5 MG 1 capsule in the morning Orally Once a day for 30 day(s) Active Lisinopril 10 MG 1 tablet Orally Once a day for 30 day(s) Active Sertraline HCl 100 MG Oral for 30 Days Active Abilify Active Ezetimibe 10 MG Oral for 30 Days Active hydrOXYzine HCl 50 MG Oral for 30 Days Active Social History Tobacco Use: Social History Observation Description Date Details (start date - stop date) Never Smoker NA - NA Tobacco Use/Smoking Question Answer Notes Patient is a nonsmoker Problems Problem Type SNOMED Code ICD Code Onset Dates Problem Status W/U Status Risk Notes Problem Strain of Achilles tendon (17270169) Strain of left Achilles tendon, subsequent encounter (S86.012D) Active confirmed Problem Laceration without foreign body, left ankle, subsequent encounter (S91.012D) Active confirmed Problem Hypertension (50334286) Hypertension (I10) Active confirmed Problem Arthralgia of the ankle and/or foot (952683428) Left ankle pain (M25.572) Active confirmed Problem Pain in left foot (994948352700357) Left foot pain (M79.672) Active confirmed Problem 84709911508920026 Rupture of lef t Achilles tendon, initial encounter (S86.012A) Active confirmed Vital Signs Heart Rate 74 /min 01/30/2025 Temperature 97.2 degrees Fahrenheit 01/30/2025 Oximetry 97 % 01/30/2025 Height 65 in 01/30/2025 Weight 184 lbs 09/05/2024 BMI 30.62 kg/m2 09/05/2024 Encounters Encounter Location Date Provider Diagnosis [facility] (PODIATRY) [address] [place] [address] [place] [address] 01/30/2025 Дмитрий Remy Left foot pain M79.672 and Rupture of left Achilles tendon, initial encounter S86.012A [facility] (PODIATRY) [address] [place] [address] [place] [address] 07/25/2024 Peter Highlander Rupture of left Achilles tendon, initial encounter S86.012A [facility] (PODIATRY) [address] [place] [address] [place] [address] 09/05/2024 Дмитрий Highlander Rupture of left Achilles tendon, initial encounter S86.012A [facility] (PODIATRY) [address] [place] [address] [place] [address] 10/04/2024 Peter Highlander Rupture of left Achilles tendon, initial encounter S86.012A [facility] (PODIATRY) [address] [place] [address] [place] [address] 12/20/2024 Дмитрий Highlander Rupture of left Achilles tendon, initial encounter S86.012A and Laceration of left Achilles tendon, subsequent encounter S86.022D [facility] (PODIATRY) [address] [place] [address] [place] [address] 02/05/2025 Дмитрий Remy Assessments Encounter Date Diagnosis (ICD Code) Assessment Notes Treatment Notes Treatment Clinical Notes Section Notes 07/25/2024 Rupture of left Achilles tendon, initial encounter (ICD-10 - S86.012A) Patient is status post Achilles repair from work-related injury in November 2022 then required 2 subsequent surgeries with the last being 1 year ago in June 2023. I did review her most recent physical therapy note which does show steady improvement and she has approximately 2 weeks of therapy remaining. Because she is continuing to improve both subjectively and objectively I recommended that we extend physical therapy for an additional 6 weeks. Her social welfare research worker, Panfilo, was present today with her consent. I recommended that she may increase her activity at work to on her feet as needed for 30 minutes/h. She may work with or without the boot depending on what her pain allows but I am hopeful that when she follows up in 6 to 8 weeks that she reports no longer needing the boot at work or at home. She will call if there is any issues and follow-up earlier if needed. No new x-rays at follow-up 09/05/2024 Rupture of left Achilles tendon, initial encounter (ICD-10 - S86.012A) Patient is nearly 2 years from her initial open Achilles tendon rupture from a work-related injury. She continues to have pain and dysfunction. She relates that yesterday she had to leave work 3 hours early secondary to pain which is primarily in the plantar calcaneus which is common when there is weakness of the Achilles tendon. She is currently on restrictions at work with 30 minutes of sitting per hour. Given her continued pain I recommended to continue these restrictions for the time being. I also agreed that having an FCE performed to determine if she has permanent restrictions.She was seen and evaluated today in the presence of Panfilo her social welfare research worker. She will follow-up after the independent evaluation is performed 10/04/2024 Rupture of left Achilles tendon, initial encounter (ICD-10 - S86.012A) Patient seen and evaluated in presence of social welfare research workerPanfilo provided by her employer. I reviewed the most recent therapy note on functional evaluation. I agree with assessment that the patient will need her current restrictions permanently as she has reached maximal medical benefit. Any possible surgical intervention would be investigational at this point therefore cannot strongly recommend this to improve the patient's function. That said, if her employer is unable to provide these permanent restrictions she may benefit from vocational rehabilitation.She will follow-up with me in 3 to 6 months or as needed. 12/20/2024 Rupture of left Achilles tendon, initial encounter (ICD-10 - S86.012A) Patient follows up for ongoing disability secondary to a work injury involving an open Achilles tendon rupture. I believe she has reached her maximal medical benefit and will have permanent disability and weakness on plantarflexion as well as chronic pain which will limit her activity and ability to work on her feet. I did fill out paperwork as recommended by her game producer. She may weight-bear as pain allows but strongly recommended against impact exercise or activity. Avoid ladders and climbing. No carrying or lifting of greater than 10 pounds.If she has any problems she will call the office otherwise we will follow-up in 6 months or as needed 12/20/2024 Laceration of left Achilles tendon, subsequent encounter (ICD-10 - S86.022D) 01/30/2025 Left foot pain (ICD-10 - M79.672) [...] months call sooner if any problems arise 07/25/2024 Other Plan Of Treatment Pending Test Test Name Order Date XR Ankle LT (3 views) * (164) 06/14/2024 XR Foot LT (3 views) * 01/30/2025 XR Foot LT (3 views) * 06/14/2024 PROF CHEM 8 (BAS METB) 04/19/2023 AFB Specimen Processing 07/22/2023 Acid Fast Smear 07/22/2023 XR foot LT min 3V 05/08/2024 XR foot LT min 3V 05/19/2024 XR foot LT min 3V 01/30/2025 XR ankle LT min 3V 10/07/2023 Fungus Stain 07/22/2023 Insurance Providers Payer Name Payer Address Payer Phone Subscriber Number Group Number Insured Name Patient Relationship to Insured Coverage Start Date Coverage End Date [employer] [address] [address] [place] [address] [id number] Luis Swenson Self - patient is the insured [employer] [facility] [address] [place] [address] [id number] Luis Swenson Self - patient is the insured Medical (General) History Medical History History ICD Code Strain of left Achilles tendon, subseque nt encounter S86.012D Laceration without foreign body, left an kle, subsequent encounter S91.012D hypertension transient ischemic attack dehiscence of left achilles incision Surgical History Surgery Date(Month/Year) left open achilles tendon rupture with l aceration 12/17/2022 shoulder, bilateral rotator cuff repair Left secondary/revision Achi lles tendon repair with flexor hallucis longus tendon transfer 04/29/2023 Left Achilles tendon debride ment, delayed primary closure of incision dehiscence 07/26/23 Hospitalization History Reason Date(Month/Year) see above
--- OUTSIDE RECORDS SUMMARY | 2025-07-22 17:03 | XMS_ITS | Encounter Summary ---
Author Organization [facility] Address [address] [facility] [place] [address] Care Team Providers Care Print Production Coordinator Name Role Phone Darnell French MD Primary Care Provider [phone] Erum Hickman DEVICE PROCESSING ENGINEER-PATIENT FINANCIAL COORDINATOR Unavailable Encounter Details Date Type Department Care Team (Late st Contact Info) Description 10/07/2023 Orders Only [facility] [address] [facility] [address] [place] [address] A, Unknown Practice [address] [place], [place] [address] Social History Tobacco Use Types Packs/Day Years [...] Date Recorded Patient Health Questionnaire-2 Score 0 10/11/2023 Exercise Vital Sign Answer Date Recorde d [...] Allergy [address] [place] [address] Milton Arriaga MD [address] [place] [address] 08/27/2025 10:30 AM EDT Office Visit [facility] [address] [facility] [address] [place] [address] Erum Hickman, DEVICE PROCESSING ENGINEER-PATIENT FINANCIAL COORDINATOR [address] [facility] [address] [place] [address] 10/17/2025 11:30 AM EST Office Visit [facility] [address] [place] [address] Jacquie Velasco, DEVICE PROCESSING ENGINEER-DRAFTER ELECTRONIC [address] [facility] [address] [place] [address] 01/10/2026 9:45 AM EST Office Visit [facility] [address] [place] [address] documented as of this encounter Procedures Procedure Name Priority Date/Time Associated Diagnosis Comments XR ANKLE 3+ VIEWS RIGHT Routine 10/06/2023 4:08 PM EST documented in this encounter Results * XR ankle 3+ views right (10/06/2023 4:08 PM EST) Anatomical Region Laterality Modality Lower Extremities, Ankle Right Radiogr aphic Imaging us Unknown Practice A IMG XR PROCEDURES Final Resul t documented in this encounter Visit Diagnoses Not on filedocumented in this encounter Additional Health Concerns Assessment Noted Time PHQ-9 Depression Total Score: 16 023 8:14 AM EDT documented as of this encounter Care Teams Print Production Coordinator Relationship Specialty Start Date End Date Darnell French MD [address] [facility] [address] [place] [address] PCP - General Internal Medicine 05/04/23 Erum Hickman APRN-PATIENT FINANCIAL COORDINATOR [address] [facility] [address] [place] [address] Nurse Practitioner Psychiatry 12/15/24 documented as of this encounter
--- OUTSIDE RECORDS SUMMARY | 2025-07-22 17:03 | XMS_ITS | Encounter Summary ---
Author Organization [facility] Address [address] [place] [address] Care Team Providers Care Brim Ironer Hand Name Role Phone Darnell French MD Primary Care Provider [phone] Erum Hickman APRN-TRANSPORTATION MUSEUM HELPER Unavailable Encounter Details Date Type Department Care Team (Latest Contact Info) Description 07/10/2025 Travel Social History Tobacco Use Types Packs/Day [...] 07/23/2025 11:20 AM EDT [facility] [address] [place] [address] Milton Arriaga MD [address] [place] [address] 08/27/2025 10:30 AM EDT Office Visit [facility] [address] [place] [address] Erum Hickman, BLOCK FEEDER-TRANSPORTATION MUSEUM HELPER [address] [place] [address] 10/17/2025 11:30 AM EST Office Visit [facility] [place] [facility] [address] [place] [address] Jacquie Velasco, BLOCK FEEDER-PHYSICAL SCIENCE TEACHER [address] [facility] [place] [address] 01/10/2026 9:45 AM EST Office Visit [facility] [place] [facility] [address] [place] [address] documented as of this encounter Visit Diagnoses Not on filedocumented in this encounter Additional Health Concerns Assessment Noted Time PHQ-9 Depression Total Score: 0 02/13/20 25 1:08 PM EDT documented as of this encounter Care Teams Brim Ironer Hand Relationship Specialty Start Date End Date Darnell French MD [address] [place] [address] PCP - General Internal Medicine 05/04/23 Erum Hickman APRN-TRANSPORTATION MUSEUM HELPER [address] [facility] [address] [place] [address] Nurse Practitioner Psychiatry 12/15/24 documented as of this encounter
--- OUTSIDE RECORDS SUMMARY | 2025-07-22 17:03 | XMS_ITS | Encounter Summary ---
Author Organization [facility] Address [address] [place] [address] Care Team Providers Care Map Compiler Name Role Phone Julio C Jarrett MD Primary Care Provider [phone] Erum Hickman APRN-MILITARY PAY CLERK Unavailable Encounter Details Date Type Department Care Team (Late st Contact Info) Description 10/07/2023 Clinisync Result Encounter [facility] External Department Unsolicited [...] Allergy [address] [place] [address] Milton Arriaga MD [address] [place] [address] 08/27/2025 10:30 AM EDT Office Visit [facility] [address] [place] [address] Gillian-Erum Montero, WAYBILL CLERK-MILITARY PAY CLERK [address] [place] [address] 10/17/2025 11:30 AM EST Office Visit [facility] [address] [place] [address] Jacquie Velasco, WAYBILL CLERK-PULP SCREEN OPERATOR [address] [facility] [place] [address] 01/10/2026 9:45 AM EST Office Visit [facility] [address] [place] [address] documented as of this encounter Procedures Procedure Name Priority Date/Time Associated Diagnosis Comments XR ANKLE LT MIN 3V 10/07/2023 1: 23 PM EST documented in this encounter Results * XR ANKLE LT MIN 3V (10/07/2023 1:23 PM EST) Anatomical Region Laterality Modality Other 10/07/2023 1:23 PM EST Narrative 10/07/2023 1:23 PM EST [address] [address] XRay Report Signed Patient: YARELIS SWENSON MR#: [id number] : 1970 Acct:[id number] Age/Sex: 53 / F ADM Date: 10/06/23 Loc: RAD Attending Dr: Дмитрий Remy D.P.M. Ordering Physician: Дмитрий Remy D.P.M. Date of Service: 10/06/23 Procedure(s): XR ankle LT min 3V Accession Number(s): [id number] cc: JULIO C JARRETT ; Дмитрий Remy D.P.M. [place] [id number] Patient Name: YARELIS SWENSON MRN: [id number] date: 1970 Sex: F Assigned Patient Location: [facility] Current Patient Location: Accession/Order Number: [id number] Exam Date: 10/06/2023 13:42 Report Date: 10/07/2023 13:23 At the request of: ДМИТРИЙ REMY Procedure: XR ankle LT min 3V STUDY: XR ankle LT min 3V, [id number] HISTORY: LEFT ANKLE PAIN COMPARISON: Left ankle x-rays 07/21/2023. FINDINGS: No acute fracture, dislocation, or suspicious osseous lesion. No lucency of the talar dome. There is disuse osteopenia throughout the visualized left foot, similar to slightly worse. Moderate Achilles insertional enthesopathy and medium-sized plantar calcaneal spur. Multipartite os peroneum are present. Mild subtalar joint osteoarthritis. XR/XR ankle LT min 3V IMPRESSION: No acute osseous abnormality. Electronically authenticated by: DIANA BROOKS Date: 10/07/2023 13:23 Dictated By: Diana Brooks Signed By: 10/07/23 1326 DD/ 1323 TD/TT: Distribution Engineering Technologist: Procedure Note Radiology, Radiologist, MD - 10/07/2023 The [place] [id number] XRay Report Signed Patient: YARELIS SWENSON DMR#: [id number] : 1970Acct:[id number] Age/Sex: 53 / FADM Date: 10/06/23 Loc: RAD Attending Dr: Дмитрий Remy D.P.M. Ordering Physician: Дмитрий Remy D.P.M. Date of Service: 10/06/23 Procedure(s): XR ankle LT min 3V Accession Number(s): [id number] cc: JULIO C JARRETT ; Дмитрий Remy D.P.M. [place] [address] Patient Name: YARELIS SWENSON MRN: [id number] date: 1970 Sex: F Assigned Patient Location: RAD Current Patient Location: Accession/Order Number: [id number] Exam Date: 10/06/2023 13:42 Report Date: 10/07/2023 13:23 At the request of: ДМИТРИЙ REMY Procedure: XR ankle LT min 3V STUDY: XR ankle LT min 3V, [id number] HISTORY: LEFT ANKLE PAIN COMPARISON: Left ankle x-rays 07/21/2023. FINDINGS: No acute fracture, dislocation, or suspicious osseous lesion. No lucency of the talar dome. There is disuse osteopenia throughout the visualized left foot, similar to slightly worse. Moderate Achilles insertional enthesopathy and medium-sized plantarcalcaneal spur. Multipartite os peroneum are present. Mild subtalar joint osteoarthritis. XR/XR ankle LT min 3V IMPRESSION: No acute osseous abnormality. Electronically authenticated by: DIANA BROOKS Date: 10/07/2023 13:23 Dictated By: Diana Brooks Signed By:10/07/23 1326 DD/ 22 TD/TT: Distribution Engineering Technologist: us Generic External Data Provider [facility] Final Result documented in this encounter Visit Diagnoses Not on filedocumented in this encounter Additional Health Concerns Assessment Noted Time PHQ-9 Depression Total Score: 16 06/12/2 023 8:14 AM EDT documented as of this encounter Care Teams Map Compiler Relationship Specialty Start Date End Date Julio C Jarrett MD [address] [facility] [address] [place] [address] PCP - General Internal Medicine 05/04/23 Erum Hickman APRN-MILITARY PAY CLERK [address] [facility] [address] [place] [address] Nurse Practitioner Psychiatry 12/15/24 documented as of this encounter
--- OUTSIDE RECORDS SUMMARY | 2025-07-22 17:03 | XMS_ITS | Encounter Summary ---
Author Organization [facility] Address [address] [place] [address] Care Team Providers Care Subeditor Name Role Phone Darnell French MD Primary Care Provider [phone] Erum Hickman FISCAL SPECIALIST-BEET END SUPERVISOR Unavailable Reason for Visit * Reason Comments Med Refill Encounter Details Date Type Department Care Team (Late st Contact Info) Description 09/28/2023 Refill [facility] [place] [facility] [address] [facility] [address] [place] [address] Erum Hickman, FISCAL SPECIALIST-BEET END SUPERVISOR [address] [facility] [address] [place] [address] Bipolar affective disorder, currently depressed, moderate (HCC) [...] Allergy [address] [place] [address] Milton Arriaga MD [address] [place] [address] 08/27/2025 10:30 AM EDT Office Visit [facility] [address] [place] [address] Erum Hickman, FISCAL SPECIALIST-BEET END SUPERVISOR [address] [place] [address] 10/17/2025 11:30 AM EST Office Visit [facility] [address] [place] [address] Jacquie Velasco, FISCAL SPECIALIST-HEALTH COMMISSIONER [address] [facility] [place] [address] 01/10/2026 9:45 AM EST Office Visit [facility] [address] [place] [address] documented as of this encounter Visit Diagnoses Diagnosis Bipolar affective disorder, currently depressed, moderate (HCC) Bipolar I disorder, most recent episode (or current) depressed, moderate documented in this encounter Additional Health Concerns Assessment Noted Time PHQ-9 Depression Total Score: 16 023 8:14 AM EDT documented as of this encounter Care Teams Subeditor Relationship Specialty Start Date End Date Darnell French MD [address] [facility] 230 [place] [address] PCP - General Internal Medicine 05/04/23 Erum Hickman APRN-BEET END SUPERVISOR 112 [facility] 160 [place] [address] Nurse Practitioner Psychiatry 12/15/24 documented as of this encounter
[2025-07-22 17:05] VITALS: BP 151/89; PULSE 82; TEMP 36.9; O2SAT 99
--- NOTE | 2025-07-23 07:33 | ED.GENADUL1 ---
HPI HPI - General Adult General Chief complaint: Neuro Symptoms/Deficit Stated complaint: SLURRED SPEACH, POS STROKE Time Seen by Provider: 07/22/25 16:59 Source: patient Mode of arrival: walk-in Related Data Home Medications ?Medication ?Instructions ?Recorded ?Confirmed clopidogrel 75 mg tablet 75 mg PO DAILY 07/22/25 07/22/25 hydroxyzine HCl 50 mg tablet mg 07/22/25 rosuvastatin 10 mg tablet 10 mg PO DAILY 07/22/25 07/22/25 sertraline 100 mg tablet 100 mg PO Q24H 07/22/25 07/22/25 Previous Rx's ?Medication ?Instructions ?Recorded cyclobenzaprine 10 mg tablet 10 mg PO TID PRN leg pain 10 days 07/27/23 #30 tabs acetaminophen 650 mg 650 mg PO Q8H PRN fever or pain 12/28/24 tablet,extended release (Tylenol 8 #20 tabs Hour) Allergies Allergy/AdvReac Type Severity Reaction Status Date / Time amoxicillin Allergy Mild Rash Verified 07/22/25 17:04 Opioid HPI Opioid Management Most Recent Opioid Data: Last Pain Scale 6 02/20/25, 16:06 Review of Systems ROS Narrative Patient is a 55-year-old female presented to the emergency department for concerns that she had a stroke 2 months ago. Patient believes she may have had a stroke 2 months ago because her speech sounds slurred. She never sought emergency medical attention at the onset of her symptoms, but has been following outpatient with her neurologist and psychiatrist. She has been diagnosed with tardive dyskinesia secondary to chronic antipsychotic use. Other than 2 months of subjective slurring of her speech, she is otherwise at her baseline state of health and has no further complaints. She denies any other neurologic complaints such as weakness, sensory deficits, headache, visual disturbances change in her taste, hearing, smell, gait imbalance, fevers, chills, chest pain, short breath, abdominal pain, nausea, vomiting, or any other systemic symptoms. She has never been diagnosed with stroke in the past. [facility] Medical History (Updated 07/22/25 @ 17:17 by Hernan Hebert DO) Sepsis ?A41.9 - Sepsis, unspecified organism (ICD-10) Tubal ligation evaluation ?Z01.818 - Encounter for other preprocedural examination (ICD-10) Visual disturbance ?H53.9 - Unspecified visual disturbance (ICD-10) Hip pain, right ?M25.551 - Pain in right hip (ICD-10) Menopausal state ?N95.1 - Menopausal and female climacteric states (ICD-10) TIA (transient ischemic attack) ?G45.9 - Transient cerebral ischemic attack, unspecified (ICD-10) Dizziness ?R42 - Dizziness and giddiness (ICD-10) COVID ?U07.1 - COVID-19 (ICD-10) Acute bronchitis ?J20.9 - Acute bronchitis, unspecified (ICD-10) Cough ?R05.9 - Cough, unspecified (ICD-10) Epistaxis ?R04.0 - Epistaxis (ICD-10) Sleep apnea ?G47.30 - Sleep apnea, unspecified (ICD-10) Rupture Achilles tendon ?S86.019A - Strain of unspecified Achilles tendon, initial encounter (ICD-10) Migraine ?G43.909 - Migraine, unspecified, not intractable, without status migrainosus (ICD-10) High cholesterol ?E78.00 - Pure hypercholesterolemia, unspecified (ICD-10) GERD (gastroesophageal reflux disease) ?K21.9 - Gastro-esophageal reflux disease without esophagitis (ICD-10) Anxiety ?F41.9 - Anxiety disorder, unspecified (ICD-10) Surgical History (Updated 04/28/23 @ 15:46 by Radha Cherry RN) Status post Achilles tendon repair ?Z98.890 - Other specified postprocedural states (ICD-10) H/O repair of rotator cuff ?Z98.890 - Other specified postprocedural states (ICD-10) History of abdominoplasty ?Z98.890 - Other specified postprocedural states (ICD-10) Family History (Updated 07/21/23 @ 14:26 by Jaquelin Ortiz) Father Coronary artery disease Hypertension Prostate cancer Family history of cancer Mother Coronary artery disease Hypertension Family history of stroke Social History Within the past year, how often did you have a drink containing alcohol: 2-4 times a month Within the past year, how many standard drinks containing alcohol did you have on a typical day: 1 or 2 Within the past year, how often did you have six or more drinks on one occasion: never Total score: 0 Score interpretation: A score less than 3 is consistent with normal alcohol consumption. Smoking status: Never smoker Non-prescribed substance use: denies use Previous occupational history: [employer] Highest level of school completed/degree received: high school graduate Are you now , , , , never or living with a partner: In a typical week, how many times do you talk on the telephone with family, friends, or neighbors: 3 or more times per week How often do you get together with friends or relatives: twice per week How often do you attend taoist or yazidism services: never Do you belong to any clubs or organizations such as taoist groups unions, fraternal or athletic groups, or school groups: no Total score: 1 Score interpretation: A score of less than or equal to 1 indicates the most socially isolated. Little interest or pleasure in doing things: not at all Feeling down, depressed, or hopeless: not at all Feel stressed/tense/nervous/anxious/difficulty sleeping: not at all Exam Narrative Exam Narrative: CONSTITUTIONAL: Well-appearing, she has repetitive involuntary movements of her mouth and tongue consistent with tardive dyskinesia, answering questions and following commands appropriately SKIN: Was warm and dry. EYES: Sclerae white. EARS, NOSE, THROAT: Moist oral mucosa. RESPIRATORY: Clear to auscultation bilaterally, no wheezes, crackles, or stridor, no use of accessory muscles CARDIOVASCULAR: Normal rate and regular rhythm. There is no S3, S4, murmur, rub. GASTROINTESTINAL: Abdomen is nondistended. MUSCULOSKELETAL: No peripheral edema. NEUROLOGIC: Patient is alert and oriented to person place and time with mildly slurred speech. Memory is normal and thought process is intact. Sensation: sensation to light touch is intact bilaterally in upper and lower extremities. Motor: Good muscle tone. Strength is 5/5 bilaterally in the upper and lower extremities. Cerebellar: Finger to nose intact. Patient has a normal gait without ataxia. Cranial Nerves: Pupils are round, reactive to light and accommodation. Extraocular movements are intact without ptosis. No nystagmus. Facial sensation intact bilaterally to light touch in the V1, V2, V3 distribution. Facial muscle strength is normal and equal bilaterally. Hearing is normal bilaterally. Palate and uvula elevate symmetrically. Shoulder shrug strong and equal bilaterally. Tongue protrudes midline and moves symmetrically. Constitutional Vital Signs, click to edit/add: Last Vital Signs Temp 98.4 F 07/22/25 17:05 Pulse 82 07/22/25 17:05 Resp 18 07/22/25 17:05 BP 151/89 H 07/22/25 17:05 Pulse Ox 99 07/22/25 17:05 O2 Del Method Room Air 07/22/25 17:05 Course Vital Signs Vital signs: Vital Signs Temperature 98.4 F 07/22/25 17:05 Pulse Rate 82 07/22/25 17:05 Respiratory Rate 18 07/22/25 17:05 Blood Pressure 151/89 H 07/22/25 17:05 Pulse Oximetry 99 07/22/25 17:05 Oxygen Delivery Method Room Air 07/22/25 17:05 Temperature 98.4 F 07/22/25 17:05 Pulse Rate 82 07/22/25 17:05 Respiratory Rate 18 07/22/25 17:05 Blood Pressure 151/89 H 07/22/25 17:05 Pulse Oximetry 99 07/22/25 17:05 Oxygen Delivery Method Room Air 07/22/25 17:05 Medical Decision Making MDM Narrative Medical decision making narrative: Patient is a 55-year-old female presenting to the emergency department for concerns that she had a stroke 2 months ago as she has been dealing with slurred speech. Her vital signs are within normal limits. She is afebrile and hemodynamically stable. On examination, she has involuntary, repetitive movements of her mouth consistent with her previous diagnosis of tardive dyskinesia. She has no focal neurologic deficits and has a normal physical examination. Though the patient believes her speech is slurred from a stroke, I do believe the changes in her voice are more likely related to tardive dyskinesia given her mouth involvement. She has no true aphasia in my opinon. There is the possibility that she did experience a stroke 2 months ago, however she has no focal neurologic deficits at this time to suggest an acute, emergent neurologic process. She is already on rosuvastatin and Plavix. She already follows up with neurology outpatient, at which point she can undergo further testing/treatment with MRI if appropriate. I do not believe any further testing or treatment is indicated on an emergent basis. I do believe the patient is stable for discharge at this time. They were instructed to follow up with his neurologist and psychiatrist for further care. Return precautions were given including any new or worsening symptoms. Patient understands and agrees to the plan. FINAL IMPRESSION: #Subactue slurred speech #History of tardive dyskinesia DISPOSITION: Discharged home CONDITION: Good Differential Diagnosis Differential Diagnosis: tardive dyskinesia, possible old CVA Discharge Plan Discharge Chief Complaint: Neuro Symptoms/Deficit Clinical Impression: Dyskinesia, tardive Patient Disposition: Home, Self-Care Time of Disposition Decision: 17:17 Condition: Good Mode of Transportation: Private Vehicle Prescriptions / Home Meds: No Action acetaminophen [Tylenol 8 Hour] 650 mg tablet extended release 650 mg PO Q8H PRN (Reason: fever or pain) Qty: 20 0RF clopidogrel 75 mg tablet 75 mg PO DAILY hydroxyzine HCl 50 mg tablet rosuvastatin 10 mg tablet 10 mg PO DAILY sertraline 100 mg tablet 100 mg PO Q24H cyclobenzaprine 10 mg Tablet 10 mg PO TID PRN (Reason: leg pain) 10 Days Qty: 30 0RF Print Language: [place] Referrals: JULIO C JARRETT [Primary Care Provider, Internal Medicine] - 1 week Discharge Date/Time: 07/22/25 17:44
== END 2025-07-22 17:44 | disposition home or self-care (01) ==
PROVIDERS: Emergency Provider Student in an Organized Health Care Education/Training Program; PCP Internal Medicine
DX: G24.01 Drug induced subacute dyskinesia (principal); R47.81 Slurred speech
CPT/HCPCS: 99281